=== PATIENT | female | born 1985 | race Caucasian/White ===

== ENCOUNTER → 2020-04-17 12:13 | Outpatient (BNVA) | payer OTHER, SELFPAY | PROVIDERS: PCP Internal Medicine; Visit Provider Internal Medicine Gastroenterology | DX: K76.9 Liver disease, unspecified (principal); M79.18 Myalgia, other site | CPT/HCPCS: 99212 ==

== ENCOUNTER 2020-04-28 07:54 | Outpatient (REF) | payer OTHER, SELFPAY ==
--- NOTE | 2020-04-28 07:56 | MR_ITS ---
EXAMINATION: MR ABDOMEN WITHOUT AND WITH CONTRAST CLINICAL INFORMATION: Liver disease COMPARISON: Previous abdominal MRI April [address] of the abdomen and pelvis October 2018 and abdominal MRI March 2019 TECHNIQUE: MR abdomen was performed without and with use of 10 mL intravenous Gadavist gadolinium contrast. Postcontrast images are performed in multiphase dynamic sequences. Imaging was performed in 3 planes. FINDINGS: LUNG BASES: The visualized lung bases are unremarkable. LIVER, GALLBLADDER, AND BILIARY TREE: The liver is normal in size and contour. There is a wedge-shaped area of increased perfusion seen on dynamic sequences only following contrast. This measures approximately 1.5 x 3 cm for example image 28 postcontrast. This appears decreased in size from previous exams and again probably represents a transient perfusion effect. No other abnormal signal is seen in the liver. The gallbladder is unremarkable with no evidence of gallbladder wall thickening, or obvious pericholecystic inflammatory changes. There is no biliary duct dilatation. PANCREAS: Unremarkable. SPLEEN: Normal. ADRENAL GLANDS: Normal. KIDNEYS AND URETERS: The kidneys are normal in size, shape, and enhance symmetrically. No hydronephrosis. No perinephric stranding. GASTROINTESTINAL TRACT: No bowel obstruction. No ascites or fluid collection. ABDOMINAL WALL: No significant hernia is appreciated. LYMPH NODES: There is shotty small bowel mesentery and lymphadenopathy similar to previous exams. VASCULAR: Unremarkable. OSSEOUS STRUCTURES: Marrow signal normal. MR/MR abdomen wo/w con IMPRESSION: Interval decrease in the transient wedge-shaped area of increased enhancement seen on dynamic sequences only in the high right lobe of the liver probably representing a transient perfusion effect compared to previous MRI exams.
== END 2020-04-28 07:55 | disposition home or self-care (01) ==
LOC: HO.MRI 07:54
PROVIDERS: Visit Provider Internal Medicine Gastroenterology
DX: K76.9 Liver disease, unspecified (principal); M79.18 Myalgia, other site
CPT/HCPCS: 74183; A9585

== ENCOUNTER → 2020-05-09 15:08 | Outpatient (BNVA) | payer OTHER, SELFPAY | PROVIDERS: Visit Provider Urology | DX: Z76.89 Persons encountering health services in other specified circumstances (principal) ==

== ENCOUNTER → 2020-06-13 14:01 | Outpatient (BNVA) | payer OTHER, SELFPAY | PROVIDERS: Visit Provider Urology | DX: Z76.89 Persons encountering health services in other specified circumstances (principal) | CPT/HCPCS: 99212 ==

== ENCOUNTER 2020-07-02 08:48 | Outpatient (REF) | payer OTHER, SELFPAY | END 2020-07-02 08:49 | disposition home or self-care (01) | LOC: HO.MDS 08:48 | PROVIDERS: Visit Provider Urology | DX: N39.0 Urinary tract infection, site not specified (principal) | CPT/HCPCS: 96365; J1335 ==

== ENCOUNTER 2020-07-03 08:32 | Outpatient (REF) | payer OTHER, SELFPAY | END 2020-07-03 08:33 | disposition home or self-care (01) | LOC: HO.MDS 08:32 | PROVIDERS: Visit Provider Urology | DX: N39.0 Urinary tract infection, site not specified (principal) | CPT/HCPCS: 96365; J1335 ==

== ENCOUNTER 2020-07-04 07:32 | Outpatient (REF) | payer OTHER, SELFPAY | END 2020-07-04 07:33 | disposition home or self-care (01) | LOC: HO.MDS 07:32 | PROVIDERS: Visit Provider Urology | DX: N39.0 Urinary tract infection, site not specified (principal) | CPT/HCPCS: 96365; J1335 ==

== ENCOUNTER 2020-07-05 10:01 | Outpatient (REF) | payer OTHER, SELFPAY | END 2020-07-05 10:02 | disposition home or self-care (01) | LOC: HO.MDS 10:01 | PROVIDERS: Visit Provider Urology | DX: N39.0 Urinary tract infection, site not specified (principal) | CPT/HCPCS: 96365; J1335 ==

== ENCOUNTER 2020-07-06 09:55 | Outpatient (REF) | payer OTHER, SELFPAY | END 2020-07-06 09:56 | disposition home or self-care (01) | LOC: HO.MDS 09:55 | PROVIDERS: Visit Provider Urology | DX: N39.0 Urinary tract infection, site not specified (principal) | CPT/HCPCS: 96365; J1335 ==

== ENCOUNTER 2020-07-07 08:58 | Outpatient (REF) | payer OTHER, SELFPAY | END 2020-07-07 08:59 | disposition home or self-care (01) | LOC: HO.MDS 08:58 | PROVIDERS: Visit Provider Urology | DX: N39.0 Urinary tract infection, site not specified (principal) | CPT/HCPCS: 96365; J1335 ==

== ENCOUNTER 2020-07-08 08:57 | Outpatient (REF) | payer OTHER, SELFPAY | END 2020-07-08 08:58 | disposition home or self-care (01) | LOC: HO.MDS 08:57 | PROVIDERS: Visit Provider Urology | DX: N39.0 Urinary tract infection, site not specified (principal) | CPT/HCPCS: 96365; J1335 ==

== ENCOUNTER 2020-07-09 07:56 | Outpatient (REF) | payer OTHER, SELFPAY | END 2020-07-09 07:57 | disposition home or self-care (01) | LOC: HO.MDS 07:56 | PROVIDERS: Visit Provider Urology | DX: N39.0 Urinary tract infection, site not specified (principal) | CPT/HCPCS: 96365; J1335 ==

== ENCOUNTER 2020-07-10 07:58 | Outpatient (REF) | payer OTHER, SELFPAY | END 2020-07-10 07:59 | disposition home or self-care (01) | LOC: HO.MDS 07:58 | PROVIDERS: Visit Provider Urology | DX: N39.0 Urinary tract infection, site not specified (principal) | CPT/HCPCS: 96365; J1335 ==

== ENCOUNTER 2020-07-11 09:57 | Outpatient (REF) | payer OTHER, SELFPAY | END 2020-07-11 09:58 | disposition home or self-care (01) | LOC: HO.MDS 09:57 | PROVIDERS: Visit Provider Urology | DX: N39.0 Urinary tract infection, site not specified (principal) | CPT/HCPCS: 96365; J1335 ==

== ENCOUNTER 2020-07-12 | Outpatient (REF) | payer OTHER, SELFPAY | END 2020-07-12 00:01 | disposition home or self-care (01) | LOC: HO.MDS | PROVIDERS: Visit Provider Urology | DX: N39.0 Urinary tract infection, site not specified (principal) | CPT/HCPCS: 96365; J1335 ==

== ENCOUNTER 2020-07-13 | Outpatient (REF) | payer OTHER, SELFPAY | END 2020-07-13 00:01 | disposition home or self-care (01) | LOC: HO.MDS | PROVIDERS: Visit Provider Urology | DX: N39.0 Urinary tract infection, site not specified (principal) | CPT/HCPCS: 96365; J1335 ==

== ENCOUNTER 2020-07-14 11:04 | Outpatient (REF) | payer OTHER, SELFPAY | END 2020-07-14 11:05 | disposition home or self-care (01) | LOC: HO.MDS 11:04 | PROVIDERS: Visit Provider Urology | DX: N39.0 Urinary tract infection, site not specified (principal) | CPT/HCPCS: 96365; J1335 ==

== ENCOUNTER 2020-07-15 14:56 | Outpatient (REF) | payer OTHER, SELFPAY | END 2020-07-15 14:57 | disposition home or self-care (01) | LOC: HO.MDS 14:56 | PROVIDERS: Visit Provider Urology | DX: N39.0 Urinary tract infection, site not specified (principal) | CPT/HCPCS: 96365; J1335 ==

== ENCOUNTER → 2020-07-25 09:39 | Outpatient (BNVA) | payer OTHER, SELFPAY | PROVIDERS: PCP Internal Medicine; Referring Provider Internal Medicine; Visit Provider Internal Medicine Gastroenterology ==

== ENCOUNTER → 2020-08-29 11:57 | Outpatient (BNVA) | payer OTHER, SELFPAY | PROVIDERS: PCP Internal Medicine; Visit Provider Urology | DX: Z13.89 Encounter for screening for other disorder (principal) | CPT/HCPCS: 99212 ==

== ENCOUNTER 2020-10-01 14:05 | Outpatient (REF) | payer OTHER, SELFPAY | END 2020-10-01 14:06 | disposition home or self-care (01) | LOC: HO.LAB 14:05 | PROVIDERS: PCP Internal Medicine; Visit Provider Urology | DX: N39.0 Urinary tract infection, site not specified (principal) | CPT/HCPCS: 87086 ==

== ENCOUNTER → 2020-10-09 14:24 | Outpatient (BNVA) | payer OTHER, SELFPAY | PROVIDERS: PCP Internal Medicine; Visit Provider Urology ==

== ENCOUNTER → 2020-10-31 13:39 | Outpatient (BNVA) | payer OTHER, SELFPAY | PROVIDERS: PCP Internal Medicine; Visit Provider Urology ==

== ENCOUNTER → 2020-11-14 15:34 | Outpatient (BNVA) | payer OTHER, SELFPAY | PROVIDERS: PCP Internal Medicine; Visit Provider Urology ==

== ENCOUNTER → 2020-11-21 08:58 | Outpatient (BNVA) | payer OTHER, SELFPAY | PROVIDERS: PCP Internal Medicine; Visit Provider Internal Medicine Gastroenterology | DX: R10.9 Unspecified abdominal pain (principal); N39.0 Urinary tract infection, site not specified | CPT/HCPCS: 99212 ==

== ENCOUNTER → 2020-12-12 13:00 | Outpatient (BNVA) | payer OTHER, SELFPAY | PROVIDERS: PCP Internal Medicine; Visit Provider Urology ==

== ENCOUNTER 2020-12-27 11:04 | Outpatient (REF) | payer OTHER, SELFPAY ==
[2020-12-27 11:18] LABS: Glucose Urine UA NEG (NEG); Leukocyte Esterase Urine NEG (NEG); Nitrite Urine NEG (NEG); Specific Gravity - Urine 1.015 (1.005-1.025); Urine Blood NEG (NEG); Urine Ketones NEG (NEG); Urine Protein NEG (NEG-TRACE)
[2020-12-27 11:19] LABS: Appearance Urine CLEAR; Color Urine YELLOW
== END 2020-12-27 11:05 | disposition home or self-care (01) ==
LOC: HO.LNP 11:04
PROVIDERS: Visit Provider Urology
DX: N39.0 Urinary tract infection, site not specified (principal)
CPT/HCPCS: 81003; 87086

== ENCOUNTER 2020-12-31 11:28 | Outpatient (REF) | payer OTHER, SELFPAY ==
[2020-12-31 12:04] LABS: Glucose Urine UA NEG (NEG); Leukocyte Esterase Urine NEG (NEG); Nitrite Urine NEG (NEG); Specific Gravity - Urine <= 1.005 (1.005-1.025); Urine Blood NEG (NEG); Urine Ketones NEG (NEG); Urine Protein NEG (NEG-TRACE)
[2020-12-31 12:09] LABS: Appearance Urine CLEAR; Color Urine YELLOW
[2020-12-31 12:24] LABS: Bacteria Urine TRACE /LPF; RBC Urine 0-2 /HPF (0); Renal Epithelial Cells Urine TRACE /LPF; Squamous Epithelial Cell Urine TRACE /LPF; WBC Urine 0-2 /HPF (0-4)
== END 2020-12-31 11:29 | disposition home or self-care (01) ==
LOC: HO.LNP 11:28
PROVIDERS: Visit Provider Urology
DX: N39.0 Urinary tract infection, site not specified (principal)
CPT/HCPCS: 81001; 87086

== ENCOUNTER → 2021-01-02 14:46 | Outpatient (BNVA) | payer OTHER, SELFPAY | PROVIDERS: PCP Internal Medicine; Visit Provider Urology ==

== ENCOUNTER 2021-01-03 11:11 | Outpatient (REF) | payer OTHER, SELFPAY | END 2021-01-03 11:12 | disposition home or self-care (01) | LOC: HO.LNP 11:11 | PROVIDERS: Visit Provider Urology | DX: N39.0 Urinary tract infection, site not specified (principal) | CPT/HCPCS: 87086 ==

== ENCOUNTER → 2021-01-16 11:16 | Outpatient (BNVA) | payer OTHER, SELFPAY | PROVIDERS: PCP Internal Medicine; Visit Provider Urology ==

== ENCOUNTER → 2021-02-17 11:06 | Outpatient (BNVA) | payer OTHER, SELFPAY | PROVIDERS: PCP Internal Medicine; Visit Provider Urology ==

== ENCOUNTER → 2021-03-20 09:06 | Outpatient (BNVA) | payer OTHER, SELFPAY | PROVIDERS: PCP Internal Medicine; Visit Provider Internal Medicine Gastroenterology | DX: R10.9 Unspecified abdominal pain (principal) | CPT/HCPCS: 99212 ==

== ENCOUNTER → 2021-04-01 13:39 | Outpatient (BNVA) | payer OTHER, SELFPAY | PROVIDERS: PCP Internal Medicine; Visit Provider Urology | DX: N30.10 Interstitial cystitis (chronic) without hematuria (principal); N39.0 Urinary tract infection, site not specified | CPT/HCPCS: 99212 ==

== ENCOUNTER → 2021-07-30 08:34 | Outpatient (BNVA) | payer OTHER, SELFPAY | PROVIDERS: PCP Internal Medicine; Visit Provider Urology ==

== ENCOUNTER → 2021-10-19 09:18 | Outpatient (BNVA) | payer OTHER, SELFPAY | PROVIDERS: PCP Internal Medicine; Referring Provider Internal Medicine; Visit Provider Internal Medicine Gastroenterology | DX: Q79.60 Ehlers-Danlos syndrome, unspecified (principal); N39.0 Urinary tract infection, site not specified | CPT/HCPCS: 99212 ==

== ENCOUNTER → 2021-12-02 15:07 | Outpatient (BNVA) | payer OTHER, SELFPAY | PROVIDERS: PCP Internal Medicine; Visit Provider Urology | DX: N30.10 Interstitial cystitis (chronic) without hematuria (principal); N39.0 Urinary tract infection, site not specified | CPT/HCPCS: 99212 ==

== ENCOUNTER 2022-05-17 16:28 | Outpatient (REF) | payer OTHER, SELFPAY ==
--- NOTE | ~2022-05-17 | MR_ITS ---
EXAMINATION: MR ABDOMEN WITHOUT AND WITH CONTRAST CLINICAL INFORMATION: Abdominal pain. COMPARISON: Abdominal MRI 04/28/2020. TECHNIQUE: MR abdomen was performed without and with use of 10 mL intravenous Gadavist gadolinium contrast. Postcontrast images are performed in multiphase dynamic sequences. Imaging was performed in 3 planes. FINDINGS: LUNG BASES: The visualized lung bases are unremarkable. LIVER, GALLBLADDER, AND BILIARY TREE: The liver is normal in size, shape and attenuation. There is redemonstration of a wedge-shaped area of hyperenhancement along the periphery of the superior right hepatic lobe, best seen in the arterial postcontrast images (100:35), with no associated mass effect and vessels running through it, favoring to represent a perfusional abnormality. There is minimal heterogeneity of the inferior right hepatic lobe adjacent to the gallbladder fossa, only visualized on the arterial phase images (100:85), that fades to become isointense in other sequences, favoring to represent an additional area of perfusional abnormality. PANCREAS: Unremarkable. SPLEEN: Normal. ADRENAL GLANDS: Normal. KIDNEYS AND URETERS: The kidneys are normal in size, shape, and enhance symmetrically. No hydronephrosis. No perinephric stranding. GASTROINTESTINAL TRACT: No evidence of bowel obstruction. There is redemonstration of tobi fatty haziness of the upper mesentery with associated prominent mesenteric lymph nodes measuring up to 9 mm in short axis, not significantly changed since 2019. ABDOMINAL WALL: No significant hernia is appreciated. LYMPH NODES: As above, redemonstration of prominent mesenteric lymph nodes associated with mesenteric fat stranding. VASCULAR: Normal caliber of the abdominal aorta. The main portal vein and SMV are patent. OSSEOUS STRUCTURES: No acute or aggressive-appearing osseous abnormalities. MR/MR abdomen wo/w con IMPRESSION: 1. Redemonstration of tobi fatty haziness of the upper mesentery with associated prominent mesenteric lymph nodes, not significantly changed since 2019, a nonspecific finding that could be seen for example in cases of mesenteric adenitis in the appropriate clinical context. 2. Area of hyperenhancement along the periphery of the superior right hepatic lobe and heterogeneity along the inferior right hepatic lobe adjacent to the gallbladder fossa, favoring to represent perfusional abnormalities.
== END 2022-05-17 16:29 | disposition home or self-care (01) ==
LOC: HO.MRI 16:28
PROVIDERS: Visit Provider Internal Medicine Gastroenterology
DX: R10.9 Unspecified abdominal pain (principal)
CPT/HCPCS: 74183; A9585

== ENCOUNTER → 2022-06-08 13:33 | Outpatient (BNVA) | payer OTHER, SELFPAY | PROVIDERS: PCP Internal Medicine; Visit Provider Urology | DX: N39.0 Urinary tract infection, site not specified (principal); N80.9 Endometriosis, unspecified; E06.3 Autoimmune thyroiditis; Q79.60 Ehlers-Danlos syndrome, unspecified; A69.20 Lyme disease, unspecified; Z79.899 Other long term (current) drug therapy | CPT/HCPCS: 99212 ==

== ENCOUNTER → 2022-06-14 14:26 | Outpatient (BNVA) | payer OTHER, SELFPAY | PROVIDERS: PCP Internal Medicine; Visit Provider Internal Medicine Gastroenterology | DX: D89.40 Mast cell activation, unspecified (principal); Q79.60 Ehlers-Danlos syndrome, unspecified; E06.3 Autoimmune thyroiditis; N80.9 Endometriosis, unspecified | CPT/HCPCS: 99212 ==

== ENCOUNTER → 2022-09-27 13:18 | Outpatient (BNVA) | payer OTHER, SELFPAY | PROVIDERS: PCP Internal Medicine; Visit Provider Internal Medicine Gastroenterology | DX: Q79.60 Ehlers-Danlos syndrome, unspecified (principal); N80.9 Endometriosis, unspecified; N39.0 Urinary tract infection, site not specified | CPT/HCPCS: 99212 ==

== ENCOUNTER 2023-01-18 14:12 | Outpatient (AMB) | payer OTHER, SELFPAY ==
--- NOTE | 2023-01-18 14:13 | MHC.OFFVIS ---
Intake Intake Visit Reasons: 6m follow up Intake Note: Patient is present for Telephone Microgen follow up Urology Med: Methenamine, tamsulosin Antibiotic Allergy:none Blood Thinner: None Phar cvsmacy: Allergies gluten Allergy (Mild, Verified 09/27/22 13:22) Unknown omalizumab [From Xolair] Allergy (Verified 09/27/22 13:21) Anaphylaxis Beta-Blockers (Beta-Adrenergic Bloc Adverse Reaction (Severe, Verified 09/27/22 13:21) Blurry Vision alpha-blockers Adverse Reaction (Severe, Uncoded 09/27/22 13:21) Blurry Vision Medication List - Last Reconciled 01/18/23 by Wes Rubio MD adapalene 0.1% topical BEDTIME amoxicillin-pot clavulanate 500-125 mg (Augmentin) 1 tab PO BID 5 days amoxicillin-pot clavulanate 875-125 mg 1 tab PO BID 14 days ascorbic acid (vitamin C) mg PO BID atogepant (Qulipta) 60 mg PO DAILY benzonatate 100 mg PO TID PRN cefixime (Suprax) 400 mg PO DAILY 7 days cetirizine (All Day Allergy (cetirizine)) 20 mg PO BID PRN clemastine 0 mg PO cromolyn mg PO BID cyanocobalamin (vitamin B-12) 5,000 mcg PO DAILY diclofenac sodium 1% 1 - 3 grams topical TID-QID doxycycline hyclate 100 mg PO BID epinephrine IM DIRECTED fluconazole 100 mg PO QWEEK 5 days fluticasone propionate 220 mcg/actuation 2 puffs inhalation BID hydroxyzine HCl mg PO ipratropium bromide 1 - 2 sprays intranasal QID PRN ketotifen fumarate 0.025%(0.035%) 1 drp ophthalmic (eye) BID PRN lactobacillus combination no.8 (Adult Probiotic) 3,000 mmu cells PO DAILY liothyronine (Cytomel) 50 mcg PO DAILY loratadine (Claritin) 10 mg PO DAILY methenamine hippurate 1 g PO BID 90 days norethindrone ac-eth estradiol 1.5-30 mg-mcg (Junel) 1 tab PO DAILY omeprazole 40 mg PO DAILY ondansetron 4 mg PO Q8H PRN ondansetron 8 mg PO Q8H PRN 5 days syringe with needle (BD Luer-Hector Syringe) As directed tamsulosin 0.4 mg PO BEDTIME triamcinolone acetonide 0.1% appl topical TID ubidecarenone-omega 3-vit E 25-150-200 mg-mg-unit (Co I-27-[id number] E-Fish Oil) 1 cap PO DAILY zolmitriptan 5 mg intranasal Q2H zolpidem 10 mg PO BEDTIME PRN HPI HPI Comments History of Present Illness Details Venus is a pleasant female. She is a patient of Dr. Brizuela. 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 - recurrent UTI Telemedicine Evaluation 15 min Consultation [employer] [facility] Video attempted 01/26 Microgen - EColi positive - Augmentin 2 weeks - 90% response - vaginal rickie - persistent symptoms - would like to proceed with 7 days antibiotics plus fluconazole. - discussed UTI vaccine which has some availability under special access program 2021 Had manual therapy evaluation [facility] for Amos-Danlos syndrome with question of high tone pelvic issues Urinary Tract Infection: Ongoing issues with recurring UTI Completed pelvic floor PT which was beneficial with Lydia Marie 2019 They present for followup evaluation for, recurrent UTI's September 2018 - excisional surgery for endometriosis - improvement but pain on right - did have skeletonization - has been having pelvic floor therapy and accupuncture - had good PT when living in [facility] (skiing). The first infection began - complicated medical history - IC diagnosis in early - ongoing issues with endometriosis - multiple excisional surgeries - question of UTI with symptoms. Severity of the symptom(s) that is moderate. Gynecologic history: , 0, Para, 0. Therapy has included symptomatic use of antibiotics - multiple antibiotics have been tried - Aim for suppression with methenamine - using [place] [facility] approach of prolonged use of trimethoprim or fossa mycin Prior cultures have shown 05/23 Microgen - unusual path with clindamycin sensitive bacteria 03/24 microgen Enterococcus faecalis - 06/26 Microgen - Klebsiella and Enterococcus no E coli - 08/24 Klebsiella positive with resistance pattern - 01/24 Klebsiella and Enterococcus - on foscfomycin and methanamine - 02/24 E coli with Levaquin resistance, rickie - 03/26 NAD - 06/27 lactobacillus - 11/25 Enterococcus and E coli - Bactrim and Augmentin - 03/27 and 04/27 - Level 1 Prevotella Level 2 mixed predominate Lactobacillius Relevant medical history Amos-Danlos syndrome with suppressed immune system. Endometriosis. - chronic Lyme therapy - interstitial cystitis PFS Medical History Complicated UTI (urinary tract infection) Endometriosis H/o Lyme disease Interstitial cystitis Mast cell disorder Pelvic pain Thyroid disease Surgical History History of appendectomy History of esophagogastroduodenoscopy (EGD) History of laparoscopic appendectomy History of surgery Hx of colonoscopy Family History Father History of cancer Family history of diabetes insipidus Mother No problems noted. Social History Household Members: Family Household Members Other:: Dad Alcohol intake: never Current occupational status: unemployed Review of Systems Const All systems reviewed & are unremarkable except as noted in HPI and below Reports no additional complaints Resp Reports no additional complaints GI Reports no additional complaints Reports as per HPI Musc Reports no additional complaints Physical Exam Telemedicine evaluation Appropriate responses Regular breathing rate and rhythm HEENT Head: Yes normal to inspection Ears: hearing grossly normal bilaterally Eyes General: appearance normal, both eyes and all related structures Neck Neck: Yes normal visual inspection Chest Chest palpation & inspection: normal inspection of the chest Resp Effort & Inspection: normal respiratory effort and able to speak in complete sentences Assessment & Plan Assessment & Plan (1) Complicated UTI (urinary tract infection): Code(s): N39.0 - Urinary tract infection, site not specified (2) Interstitial cystitis: Code(s): N30.10 - Interstitial cystitis (chronic) without hematuria Plan Four month follow-up Medications: Changed From cefixime (Suprax) 400 mg PO DAILY 14 days 14 caps 0RF N39.0 - Urinary tract infection, site not specified To cefixime (Suprax) 400 mg PO DAILY 7 caps 0RF 7 days N39.0 - Urinary tract infection, site not specified From fluconazole 150 mg PO QWEEK 7 days 7 tabs 0RF N39.0 - Urinary tract infection, site not specified To fluconazole 100 mg PO QWEEK 5 tabs 0RF 5 days N39.0 - Urinary tract infection, site not specified Patient Instructions: Imaging studies, laboratory and physical exam results were discussed and reviewed in detail. No major barriers to patient understanding were identified. An opportunity to ask questions regarding the treatment plan was provided. All questions were answered. The patient expressed understanding and agreement with the above treatment plan. The patient is aware they should contact our office by phone for worsening of their current condition or the appearance of new urologic symptoms. Compliance is encouraged with any medications and followup testing that is ordered. It is a privilege to participate in the urologic care of your patient. If you have any questions or concerns regarding treatment for the above conditions, or other urologic issues, please do not hesitate to contact me. The office telephone contact is [phone]. This note is constructed using voice recognition software. While every effort has been made to ensure accuracy machine package sealer errors may have been included. Yours sincerely, Dr Wes Rubio MD, [facility] - Urology Providers of Expert, Compassionate Care for the Genitourinary System Telehealth Telehealth Location of provider rendering services: practice address Location of patient: address on file Patient Identification confirmed using: Name, : Yes Telehealth method: video Patient verbally consented to treatment: Yes Patient verbally consented to billing insurance company: Yes Patient informed of any privacy concerns related to visit: Yes Coding Level of Care Code Tele Est Pt Level 4 (81788) Diagnoses Complicated UTI (urinary tract infection) N39.0 Interstitial cystitis N30.10
== END 2023-01-18 16:19 | disposition home or self-care (01) ==
LOC: HO.HUSH 14:12
PROVIDERS: PCP Internal Medicine; Visit Provider Urology
DX: N30.10 Interstitial cystitis (chronic) without hematuria (principal)
CPT/HCPCS: 99214

== ENCOUNTER → 2023-01-18 14:12 | Outpatient (BNVA) | payer OTHER, SELFPAY | PROVIDERS: PCP Internal Medicine; Visit Provider Urology ==

== ENCOUNTER 2023-02-21 15:06 | Outpatient (REF) | payer OTHER, SELFPAY ==
[2023-02-23 13:23] LABS: Gliadin Deamidated IgA Ab <1.0 U/mL; Gliadin Deamidated IgG Ab <1.0 U/mL; Transglutaminase Ab IgG 1.2 U/mL; Transglutaminase IgA <1.0 U/mL
[2023-02-23 15:29] LABS: IgA 227 mg/dL (47-310); IgG 1225 mg/dL (600-1640); IgM 104 mg/dL (50-300)
[2023-02-24 17:09] LABS: Immunoglobulin G Subclass 1 661 mg/dL (382-929); Immunoglobulin G Subclass 2 371 mg/dL (241-700); Immunoglobulin G Subclass 3 6 mg/dL (22-178); Immunoglobulin G Total 1055 mg/dL (600-1640)
[2023-02-25 06:18] LABS: Immunoglobulin E 105 kU/L (<OR=114)
== END 2023-02-21 15:07 | disposition home or self-care (01) ==
LOC: HO.LAB 15:06
PROVIDERS: PCP Internal Medicine; Visit Provider Internal Medicine Gastroenterology
DX: R10.33 Periumbilical pain (principal); G89.29 Other chronic pain; R10.9 Unspecified abdominal pain
CPT/HCPCS: 36415; 82784; 82785; 86258; 86364

== ENCOUNTER 2023-04-01 09:29 | Outpatient (AMB) | payer OTHER, SELFPAY ==
--- NOTE | 2023-04-01 09:32 | A.OFFVIS_ITS ---
Intake Vital Signs 04/01/23 09:35 Height 5 ft 10 in Weight 246 lb BMI 35.3 BP 124/76 Blood Pressure Location Lt brachial Position Sitting Pulse 87 Intake Visit Reasons: 4 month follow up Intake Note: Venus presents in the office as a 4 month follow up. CC: She has been having issues with her BP due to her medications. She was getting dizzy and she is a little confused. She was losing hair due to Quilipta. 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 she had been on mcc ABx for lyme disease and was on diflucan ? she has had appendectomy and lysis of endometriosis in the past 06/2018 as well as vaginal manipulation for pelvic floor issues ? pain is RLQ and also pain in umbilical area ? she also has pain in epigastrium ? sitting can make pain worse ? when first had thought is was kidney stone due to severity, worse lying on that side, heat might help it ? no nausea or vomiting ? mush like stools since 06/2018, on probiotics ? she took omeprazole for 2 weeks for gerd but no longer needed ? she has tried flagy for the stool seemed to help a little ? she has been dx as interstitial cystitis and on various courses of abx for this ? she stays on gluten free diet, if takes gluten has terible pain ? she got shock wave therapy for sacral pain, didnlt really help ? told to ride it out, may get further injection therapy ? she is also having pain initally rlq now higher up, few spots she can identify as focally causing pain ? 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 seeing new pain MD ? 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 had complex UTI requiring ertapenam Iv for 2 weeks she is getting PT for her pains and aches She had treatment for lyme and got treatment from PCP shr got treatment with disulfiram and is ongoing potentially for months, things is helping some what she has word finding problems, expressive dysphasia she still has ongoing bladder infection issues and seeing Dr Rubio, has tried macrobid she had not tried cromolyn or black seed oil From office visit 03/2021 she had been having worsening migraines following up with her neurologist and 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, thinking to go back on OCP as feels it is hormonal she has tenderness in abdomen, and she has been told she has myofascial pain asking if I can give her trigger point injection (In EDS patients marcaine is more effect nupur than lidocaine she has had ropivacaine in the past for other pain issues with good relief) she had been getting pelvic treatments for her pelvic pain she had recurrent UTI again with e coli and rickie, was getting treatment She finally had her trigger point injection using ropivacaine without the steroid seemed to help for 6 hours but came back she still has the same pain she has chronic SI joint pain-- has seen PT for this she has ongoing issues with migraines, getting quilpta with some relief feels losing hair due to the quilipta we had discussed using trental she was thinking about it she hasn;t started cromolyn at this time DATA: Imaging and endoscopies: ? EGD: 03/2018--gastritis, normal duodenum ? colonoscopy--normal ? MRI: 03/2019--6.4 x 7.2 cm wedge shaped hyperemia, edema, ?anterior seg portal vein thrombosis, right, left main portal veins are patent ? numerous mesenteric LN, increased in size similar to prior study, spiculated soft tissue peritoneal lesion 1 x 1.8 cm ?related to endometriosis ? rept MRI 04/2019-- ?NOAH< transient arterial enhancement, normal portal veins, right ovarian cyst, normal pancreas, no cholelithiasis ? rept MRI 04/2020-- NOAH reduced, shotty LN and mesentry MRI 2021- NOAH< tobi mesentry with prominent LN MISC? LAB TESTS: ? fecal calprotectin <15 ? gastrin neg ? glucagon neg ? metanephrines plasma and urine were both neg ? porphyria was neg ? RAST- pos for wheat, nuts, high IgE ? MARY--neg NOAH, perfusion defect, also on OCP, not keen on MRI with contrast, never had any solid tumour seen ? INTERIM: she had a lot of stress looking after dad, has shunt for NPH she still hasn;t started cromolyn, will start next week she has been having BP issues with HTN from Quilepta she has been taking candesartan and lower dose of quilipta she has been having issues with rickie infections - noted on pap smears she has been taking diflucan she had covid booster shot, but had post vaccine cough and needed inhalers etc ?EXAM: GENERAL: The patient is well developed and nontoxic. VITAL SIGNS:see workflow HEENT: Nonicteric sclerae, PERRLA, EOMI. Oropharynx clear. Moist mucous membranes. Conjunctivae appear well perfused. No thyroid mass. CHEST: Chest wall is nontender. HEART: Regular rate and rhythm without murmurs. LUNGS: Clear to auscultation bilaterally. ABDOMEN: Soft, positive bowel sounds, focal tenderness ruq worse with head lift, no organomegaly.no flank tenderness SKIN: No rash, no excessive bruising, petechiae, or purpura. NEUROLOGIC: Cranial nerves II-XII intact without motor/sensory deficit. PSYCH--normal affect Assessment & Plan 1/ Complex medical issues on background of EDS with multiple pelvic surgeries for endometriosis and recurrent UTI, some improvement with therapies from providers, imaging with mesenteric haziness and adenitis could be a cause PLAN: 1/ Still unsure about trying PPi or tren gina for various complaints, or going forward with lap assessment and bx of mesentry she will let me know how she wants to proceed in future 2/ commence cromolyn and see response [facility] Medical History (Updated 04/01/23 @ 10:01 by Ricardo Cline MD) Thyroid disease Mast cell disorder H/o Lyme disease Interstitial cystitis Pelvic pain Endometriosis Complicated UTI (urinary tract infection) Surgical History Hx of colonoscopy History of esophagogastroduodenoscopy (EGD) History of surgery History of appendectomy History of laparoscopic appendectomy Family History Father History of cancer Family history of diabetes insipidus Mother No problems noted. Social History Household Members: Family Household Members Other:: Dad Alcohol intake: never Current occupational status: unemployed Physical Exam Vital Signs: BMI result Body Mass Index 35.3 Assessment & Plan Assessment & Plan (1) Myofascial pain: Code(s): M79.18 - Myalgia, other site (2) Mast cell disorder: Code(s): D47.09 - Other mast cell neoplasms of uncertain behavior Coding Level of Care Code Est Pt Level 3 (46180) Diagnoses Myofascial pain M79.18 Mast cell disorder D47.09
[2023-04-01 09:35] VITALS: BP 124/76; PULSE 87; BMI 35.3
== END 2023-04-01 10:01 | disposition home or self-care (01) ==
PROVIDERS: Visit Provider Internal Medicine Gastroenterology
DX: M79.18 Myalgia, other site (principal); D47.09 Other mast cell neoplasms of uncertain behavior
CPT/HCPCS: 99213

== ENCOUNTER → 2023-04-01 09:29 | Outpatient (BNVA) | payer OTHER, SELFPAY | PROVIDERS: Visit Provider Internal Medicine Gastroenterology | DX: D47.09 Other mast cell neoplasms of uncertain behavior (principal); M79.18 Myalgia, other site | CPT/HCPCS: 99212 ==

== ENCOUNTER 2023-05-12 16:37 | Outpatient (REF) | payer OTHER, SELFPAY ==
[2023-05-12 17:26] LABS: Appearance Urine Clear; Color Urine Yellow; Glucose Urine UA Negative (Negative); Leukocyte Esterase Urine Trace (Negative); Nitrite Urine Negative (Negative); PH 6.5 (5.0-9.0); UMIC TRIGGER UA YES; Urine Blood Trace (Negative); Urine Ketones Negative (Negative); Urine Protein Negative (Neg-Trace)
[2023-05-12 17:32] LABS: Bacteria Urine None Seen (None Seen); Hyaline Casts Urine 0-2 /LPF (0-2); Squamous Epithelial Cell Urine 0-2 /HPF (0-2); WBC Urine 0-5 /HPF (0-5)
== END 2023-05-12 16:38 | disposition home or self-care (01) ==
LOC: HO.LAB 16:37
PROVIDERS: PCP Internal Medicine; Visit Provider Urology
DX: N39.0 Urinary tract infection, site not specified (principal)
CPT/HCPCS: 81001; 87086

== ENCOUNTER 2023-05-18 14:16 | Outpatient (AMB) | payer OTHER, SELFPAY ==
--- NOTE | 2023-05-18 14:17 | A.OFFVIS_ITS ---
Intake Intake Visit Reasons: UTI- follow up Intake Note: Patient is Present for Telephone Follow Up UTI Urology Med: Antibiotic Allergy: None Blood Thinner: None Patient had changed insurances and Terenceen requires PA in order for them to decide if service can be covered. Currently under review from insurance Allergies gluten Allergy (Mild, Verified 04/01/23 09:35) Unknown tamsulosin Allergy (Mild, Verified 04/01/23 09:39) Unknown omalizumab [From Xolair] Allergy (Verified 04/01/23 09:35) Anaphylaxis Beta-Blockers (Beta-Adrenergic Bloc Adverse Reaction (Severe, Verified 04/01/23 09:35) Blurry Vision alpha-blockers Adverse Reaction (Severe, Uncoded 04/01/23 09:35) Blurry Vision Medication List - Last Reconciled 05/18/23 by Wes Rubio MD ascorbic acid (vitamin C) mg PO BID atogepant (Qulipta) 30 mg PO DAILY benzonatate 100 mg PO TID PRN candesartan 2 mg PO DAILY cetirizine (All Day Allergy (cetirizine)) 20 mg PO BID clemastine 0 mg PO cromolyn mg PO BID cyanocobalamin (vitamin B-12) 5,000 mcg PO DAILY diclofenac sodium 1% 1 - 3 grams topical TID-QID epinephrine IM DIRECTED fluconazole 100 mg PO Q OTHER DAY 5 days hydroxyzine HCl mg PO ipratropium bromide 1 - 2 sprays intranasal QID PRN ketotifen fumarate 0.025%(0.035%) 1 drp ophthalmic (eye) BID PRN lactobacillus combination no.8 (Adult Probiotic) 3,000 mmu cells PO DAILY liothyronine (Cytomel) 50 mcg PO DAILY loratadine (Claritin) 10 mg PO DAILY norethindrone ac-eth estradiol 1.5-30 mg-mcg (Junel) 1 tab PO DAILY ondansetron 4 mg PO Q8H PRN syringe with needle (BD Luer-Hector Syringe) As directed triamcinolone acetonide 0.1% appl topical TID zolmitriptan 5 mg intranasal Q2H zolpidem 10 mg PO BEDTIME HPI HPI Comments History of Present Illness0 Details Venus is a pleasant female. She is a patient of Dr. Birzuela. 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 - recurrent UTI Telemedicine Evaluation 15 min Consultation [employer] F[employer] Video attempted Again discussed Uromune which is available in [place] 01/26 Microgen - EColi positive - Augment in 2 weeks - 90% response - vaginal rickie - persistent symptoms - would like to proceed with 7 days anti biotics plus fluconazole - discussed UTI vaccine which has some a vailability under special access program 2021 Had manual therapy evaluation [facility] for Amos-Danlos syndrome with question of high tone pelvic issues Urinary Tract Infection: Ongoing issues with recurring UTI Completed pelvic floor PT which was beneficial with Lydia Frank 2019 They present for followup evaluation for, recurrent UTI's September 2018 - excisional surgery for endometriosis - improvement but pain on right - did have skeletonization - has been having pelvic floor therapy and accupuncture - had good PT when living in [facility] ([facility] The first infection began - complicated medical history - IC diagnosis in early - ongoing issues with endometriosis - multiple excisional surgeries - question of UTI with symptoms. Severity of the symptom(s) that is moderate. Gynecologic history: , 0, Para, 0. Therapy has included symptomatic use of antibiotics - multiple antibiotics have been tried - Aim for suppression with methenamine - using [facility] approach of prolonged use of trimethoprim or fosfomycin Prior cultures have shown 05/23 Microgen - unusual path with clindamycin sensitive bacteria 03/24 microgen Enterococcus faecalis - 06/26 Microgen - Klebsiella and Enterococcus no E coli - 08/24 Klebsiella positive with resistance pattern - 01/24 Klebsiella and Enterococcus - on foscfomycin and methanamine - 02/24 E coli with Levaquin resistance, rickie - 03/26 NAD - 06/27 lactobacillus - 11/25 Enterococcus and E coli - Bactrim and Augmentin - 03/27 and 04/27 - Level 1 Prevotella Level 2 mixed predominate Lactobacillius Relevant medical history Amos-Danlos syndrome with suppressed immune system. Endometriosis. - chronic Lyme therapy - interstitial cystitis [facility]LY [facility], [facility] Medical History (Updated 04/01/23 @ 10:01 by Ricardo Cline MD) Thyroid disease Mast cell disorder H/o Lyme disease Interstitial cystitis Pelvic pain Endometriosis Complicated UTI (urinary tract infection) Surgical History Hx of colonoscopy History of esophagogastroduodenoscopy (EGD) History of surgery History of appendectomy History of laparoscopic appendectomy Family History Father History of cancer Family history of diabetes insipidus Mother No problems noted. Social History Household Members: Family Household Members Other:: Dad Alcohol intake: never Current occupational status: unemployed Review of Systems Const All systems reviewed & are unremarkable except as noted in HPI and below Reports no additional complaints Resp Reports no additional complaints GI Reports no additional complaints Reports as per HPI Musc Reports no additional complaints Physical Exam Telemedicine evaluation Appropriate responses Regular breathing rate and rhythm HEENT Head: Yes normal to inspection Ears: hearing grossly normal bilaterally Eyes General: appearance normal, both eyes and all related structures Neck Neck: Yes normal visual inspection Chest Chest palpation & inspection: normal inspection of the chest Resp Effort & Inspection: normal respiratory effort and able to speak in complete sentences Assessment & Plan Assessment & Plan (1) Interstitial cystitis: Code(s): N30.10 - Interstitial cystitis (chronic) without hematuria (2) Complicated UTI (urinary tract infection): Code(s): N39.0 - Urinary tract infection, site not specified Plan Trial Diflucan for current symptoms Four month follow-up Patient Instructions: Imaging studies, laboratory and physical exam results were discussed and reviewed in detail. No major barriers to patient understanding were identified. An opportunity to ask questions regarding the treatment plan was provided. All questions were answered. The patient expressed understanding and agreement with the above treatment plan. The patient is aware they should contact our office by phone for worsening of their current condition or the appearance of new urologic symptoms. Compliance is encouraged with any medications and followup testing that is ordered. It is a privilege to participate in the urologic care of your patient. If you have any questions or concerns regarding treatment for the above conditions, or other urologic issues, please do not hesitate to contact me. The office telephone contact is [phone]. This note is constructed using voice recognition software. While every effort has been made to ensure accuracy gas meter installer helper errors may have been included. Yours sincerely, Dr Wes Rubio MD, [facility] - Urology Providers of Expert, Compassionate Care for the Genitourinary System Telehealth Telehealth Location of provider rendering services: practice address Location of patient: address on file Patient Identification confirmed using: Name, : Yes Telehealth method: video Patient verbally consented to treatment: Yes Patient verbally consented to billing insurance company: Yes Patient informed of any privacy concerns related to visit: Yes Coding Level of Care Code Tele Est Pt Level 3 (62366) Diagnoses Interstitial cystitis N30.10 Complicated UTI (urinary tract infection) N39.0
== END 2023-05-18 14:40 ==
LOC: HO.HUSH 14:16
PROVIDERS: PCP Internal Medicine; Visit Provider Urology
DX: N30.10 Interstitial cystitis (chronic) without hematuria (principal); N39.0 Urinary tract infection, site not specified
CPT/HCPCS: 99213

== ENCOUNTER → 2023-05-18 14:16 | Outpatient (BNVA) | payer OTHER, SELFPAY | PROVIDERS: PCP Internal Medicine; Visit Provider Urology ==

== ENCOUNTER 2023-07-22 09:28 | Outpatient (AMB) | payer OTHER, SELFPAY ==
--- NOTE | 2023-07-22 09:41 | MHC.OFFVIS ---
Intake Vital Signs 07/22/23 09:42 Height 5 ft 10 in Weight 248 lb BMI 35.6 BP 115/64 Blood Pressure Location Lt brachial Position Sitting Pulse 85 Intake Visit Reasons: 4 month follow up Intake Note: Patient follow up for Mast cell disorder. Patient cc: abdominal pain with bloating, fatigue and dizziness. Spa Experience Coordinator Required: No Accompanied by: Self / Same As Patient Allergies gluten Allergy (Mild, Verified 07/22/23 09:36) Unknown tamsulosin Allergy (Mild, Verified 07/22/23 09:36) Unknown omalizumab [From Xolair] Allergy (Verified 07/22/23 09:36) Anaphylaxis Beta-Blockers (Beta-Adrenergic Bloc Adverse Reaction (Severe, Verified 07/22/23 09:36) Blurry Vision alpha-blockers Adverse Reaction (Severe, Uncoded 04/01/23 09:35) Blurry Vision HPI 4 month follow up HPI Details 38 yr old f w hx of endometriosis, hashimotos thyroiditis, mast cell disorder, kingsley danlos syndrome seen for f/u RECAP: she had been on 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 ABx for lyme disease and was on diflucan she has had appendectomy and lysis of endometriosis in the past 06/2018 as well as vaginal manipulation for pelvic floor issues pain is RLQ and also pain in umbilical area she also has pain in epigastrium sitting can make pain worse when first had thought is was kidney stone due to severity, worse lying on that side, heat might help it no nausea or vomiting mush like stools since 06/2018, on probiotics she took omeprazole for 2 weeks for gerd but no longer needed she has tried flagy for the stool seemed to help a little she has been dx as interstitial cystitis and on various courses of abx for this she stays on gluten free diet, if takes gluten has terible pain she got shock wave therapy for sacral pain, didnlt really help told to ride it out, may get further injection therapy she is also having pain initally rlq now higher up, few spots she can identify as focally causing pain plugger surgeon planning for further surgery entrapped ovary? 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 had complex UTI requiring ertapenam Iv for 2 weeks she is getting PT for her pains and aches She had treatment for lyme and got treatment from PCP shr got treatment with disulfiram and is ongoing potentially for months, things is helping some what she has word finding problems, expressive dysphasia she still has ongoing bladder infection issues and seeing Dr Rubio, has tried macrobid she had not tried cromolyn or black seed oil From office visit 03/2021 she had been having worsening migraines following up with her neurologist and plugger, thinking to go back on OCP as feels it is hormonal she has tenderness in abdomen, and she has been told she has myofascial pain asking if I can give her trigger point injection (In EDS patients marcaine is more effective than lidocaine she has had ropivacaine in the past for other pain issues with good relief) she had been getting pelvic treatments for her pelvic pain she had recurrent UTI again with e coli and rickie, was getting treatment She finally had her trigger point injection using ropivacaine without the steroid seemed to help for 6 hours but came back she still has the same pain she has chronic SI joint pain-- has seen PT for this she has ongoing issues with migraines, getting quilpta with some relief feels losing hair due to the quilipta we had discussed using trental she was thinking about it she hasn;t started cromolyn at this time she had a lot of stress looking after dad, has shunt for NPH she still hasn;t started cromolyn, will start next week she has been having BP issues with HTN from Quilepta she has been taking candesartan and lower dose of quilipta she has been having issues with rickie infections - noted on pap smears she has been taking diflucan she had covid booster shot, but had post vaccine cough and needed inhalers etc DATA: Imaging and endoscopies: EGD: 03/2018--gastritis, normal duodenum colonoscopy--normal MRI: 03/2019--6.4 x 7.2 cm wedge shaped hyperemia, edema, ?anterior seg portal vein thrombosis, right, left main portal veins are patent numerous mesenteric LN, increased in size similar to prior study, spiculated soft tissue peritoneal lesion 1 x 1.8 cm ?related to endometriosis rept MRI 04/2019-- ?NOAH< transient arterial enhancement, normal portal veins, right ovarian cyst, normal pancreas, no cholelithiasis rept MRI 04/2020-- NOAH reduced, shotty LN and mesentry MRI 2021- NOAH< tobi mesentry with prominent LN MISC LAB TESTS: fecal calprotectin <15 gastrin neg glucagon neg metanephrines plasma and urine were both neg porphyria was neg RAST- pos for wheat, nuts, high IgE MARY--neg NOAH, perfusion defect, also on OCP, not keen on MRI with contrast, never had any solid tumour seen INTERIM: still stressed as dad still been unwell, with falls, on eliquis she has not had major migraines still having issues with rickie following with immunology, Dr Shearer , has issues with her T cells she has been going for PT which has helped fascial pains she never commenced cromolyn she feels like she is leaking but she is sweaty all the time, never sees anything in the clothing EXAM: GENERAL: The patient is well developed and nontoxic. VITAL SIGNS:see workflow HEENT: Nonicteric sclerae, PERRLA, EOMI. Oropharynx clear. Moist mucous membranes. Conjunctivae appear well perfused. No thyroid mass. CHEST: Chest wall is nontender. HEART: Regular rate and rhythm without murmurs. LUNGS: Clear to auscultation bilaterally. ABDOMEN: Soft, positive bowel sounds, focal tenderness ruq worse with head lift, no organomegaly.no flank tenderness SKIN: No rash, no excessive bruising, petechiae, or purpura. NEUROLOGIC: Cranial nerves II-XII intact without motor/sensory deficit. PSYCH--normal affect Assessment & Plan 1/ Complex medical issues on background of EDS with multiple pelvic surgeries for endometriosis and recurrent UTI, some improvement with therapies from providers, and PT, imaging with mesenteric haziness and adenitis could be a cause but she has been reluctant for further assessment and trial of treatments for this PLAN: 1/ discussed she could use voricanazole she will discuss with her urology and other providers about that 2/ commence cromolyn, she thinks she will start in August, 3/ discussed using black seed oil due to anti inflammatory effects, she will consider [facility] Medical History (Updated 04/01/23 @ 10:01 by Ricardo Cline MD) Thyroid disease Mast cell disorder H/o Lyme disease Interstitial cystitis Pelvic pain Endometriosis Complicated UTI (urinary tract infection) Surgical History Hx of colonoscopy History of esophagogastroduodenoscopy (EGD) History of surgery History of appendectomy History of laparoscopic appendectomy Family History Father History of cancer Family history of diabetes insipidus Mother No problems noted. Social History Household Members: Family Household Members Other:: Dad Alcohol intake: never Current occupational status: unemployed Physical Exam Vital Signs: Last Vital Signs Pulse 85 07/22/23 09:42 BP 115/64 07/22/23 09:42 BMI result Body Mass Index 35.6 Assessment & Plan Assessment & Plan (1) Mast cell disorder: Code(s): D47.09 - Other mast cell neoplasms of uncertain behavior Plan: Assessment & Plan 1/ Complex medical issues on background of EDS with multiple pelvic surgeries for endometriosis and recurrent UTI, some improvement with therapies from providers, and PT, imaging with mesenteric haziness and adenitis could be a cause but she has been reluctant for further assessment and trial of treatments for this PLAN: 1/ discussed she could use voricanazole she will discuss with her urology and other providers about that 2/ commence cromolyn, she thinks she will start in August, 3/ discussed using black seed oil due to anti inflammatory effects, she will consider Coding Level of Care Code Est Pt Level 3 (29426) Diagnoses Mast cell disorder D47.09
[2023-07-22 09:42] VITALS: BP 115/64; PULSE 85; BMI 35.6
== END 2023-07-22 10:17 | disposition home or self-care (01) ==
PROVIDERS: PCP Internal Medicine; Visit Provider Internal Medicine Gastroenterology
DX: D47.09 Other mast cell neoplasms of uncertain behavior (principal)
CPT/HCPCS: 99213

== ENCOUNTER → 2023-07-22 09:28 | Outpatient (BNVA) | payer OTHER, SELFPAY | PROVIDERS: PCP Internal Medicine; Visit Provider Internal Medicine Gastroenterology | DX: D47.09 Other mast cell neoplasms of uncertain behavior (principal) | CPT/HCPCS: 99212 ==

== ENCOUNTER 2023-10-19 15:29 | Outpatient (AMB) | payer OTHER, SELFPAY ==
--- NOTE | 2023-10-19 15:29 | A.OFFVIS_ITS ---
Intake Visit Reasons: 4 F/U Intake Note: Patient is Present for Telephone Follow Up UTI Urology Med: Antibiotic Allergy: None Blood Thinner: None Liquid Sugar Melter Required: No Accompanied by: Self / Same As Patient Allergies gluten Allergy (Mild, Verified 07/22/23 09:36) Unknown tamsulosin Allergy (Mild, Verified 07/22/23 09:36) Unknown omalizumab [From Xolair] Allergy (Verified 07/22/23 09:36) Anaphylaxis Beta-Blockers (Beta-Adrenergic Bloc Adverse Reaction (Severe, Verified 07/22/23 09:36) Blurry Vision alpha-blockers Adverse Reaction (Severe, Uncoded 04/01/23 09:35) Blurry Vision HPI Comments Details: Venus is a pleasant female. She is a patient of Dr. Brizuela. 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 - recurrent UTI Telemedicine Evaluation 15 min Consultation [employer] 10/27 Stable with vitamin C, cran caps and d-mannose - labial cyts which have pain - relatively stable regarding bladder 04/28 Itraconazole - did have interaction with migraine medications - atogepant 01/26 Microgen - EColi positive - Augmentin 2 weeks - 90% response - vaginal rickie - persistent symptoms - would like to proceed with 7 days antibiotics plus fluconazole - discussed UTI vaccine which has some availability under special access program 2021 Had manual therapy evaluation [facility] for Amos-Danlos syndrome with question of high tone pelvic issues Urinary Tract Infection: Ongoing issues with recurring UTI Completed pelvic floor PT which was beneficial with Lydia Marie 2019 They present for followup evaluation for, recurrent UTI's September 2018 - excisional surgery for endometriosis - improvement but pain on right - did have skeletonization - has been having pelvic floor therapy and accupuncture - had good PT when living in [facility] ([place]). The first infection began - complicated medical history - IC diagnosis in early - ongoing issues with endometriosis - multiple excisional surgeries - question of UTI with symptoms. Severity of the symptom(s) that is moderate. Gynecologic history: , 0, Para, 0. Therapy has included symptomatic use of antibiotics - multiple antibiotics have been tried - Aim for suppression with methenamine - using [facility] approach of prolonged use of trimethoprim or fosfomycin Prior cultures have shown 05/23 Microgen - unusual path with clindamycin sensitive bacteria 03/24 microgen Enterococcus faecalis - 06/26 Microgen - Klebsiella and Enterococcus no E coli - 08/24 Klebsiella positive with resistance pattern - 01/24 Klebsiella and Enterococcus - on foscfomycin and methanamine - 02/24 E coli with Levaquin resistance, rickie - 03/26 NAD - 06/27 lactobacillus - 11/25 Enterococcus and E coli - Bactrim and Augmentin - 03/27 and 04/27 - Level 1 Prevotella Level 2 mixed predominate Lactobacillius Relevant medical history Amos-Danlos syndrome with suppressed immune system. Endometriosis. - chronic Lyme therapy - interstitial cystitis [facility]LY [facility] Medical History (Updated 04/01/23 @ 10:01 by Ricardo Cline MD) Thyroid disease Mast cell disorder H/o Lyme disease Interstitial cystitis Pelvic pain Endometriosis Complicated UTI (urinary tract infection) Surgical History Hx of colonoscopy History of esophagogastroduodenoscopy (EGD) History of surgery History of appendectomy History of laparoscopic appendectomy Family History Father History of cancer Family history of diabetes insipidus Mother No problems noted. Social History Household Members: Family Household Members Other:: Dad Alcohol intake: never Current occupational status: unemployed Review of Systems Const All systems reviewed & are unremarkable except as noted in HPI and below Reports no additional complaints Resp Reports no additional complaints GI Reports no additional complaints Reports as per HPI Musc Reports no additional complaints Physical Exam Telemedicine evaluation Appropriate responses Regular breathing rate and rhythm HEENT Head: Yes normal to inspection Ears: hearing grossly normal bilaterally Eyes General: appearance normal, both eyes and all related structures Neck Neck: Yes normal visual inspection Chest Chest palpation & inspection: normal inspection of the chest Resp Effort & Inspection: normal respiratory effort and able to speak in complete sentences Telehealth Telehealth Location of provider rendering services: practice address Location of patient: address on file Patient Identification confirmed using: Name, : Yes Telehealth method: voice only Patient verbally consented to treatment: Yes Patient verbally consented to billing insurance company: Yes Patient informed of any privacy concerns related to visit: Yes Assessment & Plan Assessment & Plan (1) Interstitial cystitis: Code(s): N30.10 - Interstitial cystitis (chronic) without hematuria Category: Medical (2) Complicated UTI (urinary tract infection): Code(s): N39.0 - Urinary tract infection, site not specified Category: Medical Plan 6 months Patient Instructions: Imaging studies, laboratory and physical exam results were discussed and reviewed in detail. No major barriers to patient understanding were identified. An opportunity to ask questions regarding the treatment plan was provided. All questions were answered. The patient expressed understanding and agreement with the above treatment plan. The patient is aware they should contact our office by phone for worsening of their current condition or the appearance of new urologic symptoms. Compliance is encouraged with any medications and followup testing that is ordered. It is a privilege to participate in the urologic care of your patient. If you have any questions or concerns regarding treatment for the above conditions, or other urologic issues, please do not hesitate to contact me. The office telephone contact is [phone]. This note is constructed using voice recognition software. While every effort has been made to ensure accuracy medical dermatologist errors may have been included. Yours sincerely, Dr Wes Rubio MD, [facility] - Urology Providers of Expert, Compassionate Care for the Genitourinary System Coding Level of Care Code Tele Est Pt Level 4 (33693) Diagnoses Interstitial cystitis N30.10 Complicated UTI (urinary tract infection) N39.0
== END 2023-10-19 16:24 | disposition home or self-care (01) ==
LOC: HO.HUSH 15:29
PROVIDERS: PCP Internal Medicine; Visit Provider Urology
DX: N30.10 Interstitial cystitis (chronic) without hematuria (principal); N39.0 Urinary tract infection, site not specified
CPT/HCPCS: 99213

== ENCOUNTER → 2023-10-19 15:29 | Outpatient (BNVA) | payer OTHER, SELFPAY | PROVIDERS: PCP Internal Medicine; Visit Provider Urology ==

== ENCOUNTER 2024-01-23 12:55 | Outpatient (AMB) | payer OTHER, SELFPAY ==
[2024-01-23 12:59] VITALS: BMI 35.7
--- NOTE | 2024-01-23 12:59 | A.OFFVIS_ITS ---
Vital Signs 01/23/24 12:59 Height 5 ft 10 in Weight 249 lb 1.957 oz BMI 35.7 Blood Pressure Location Lt brachial Position Sitting Intake Visit Reasons: 6 month follow up Intake Note: Venus presents in the office as a 6 month follow up. CC: Has not started cromolyn. Was having issues with BP and dizziness for weeks that they have not been able to figure out. She tested postive for carpal tunnel in both hands. She fell a couple times since her last appt. Allergies gluten Allergy (Mild, Verified 01/23/24 13:04) Unknown tamsulosin Allergy (Mild, Verified 01/23/24 13:04) Unknown omalizumab [From Xolair] Allergy (Verified 01/23/24 13:04) Anaphylaxis Beta-Blockers (Beta-Adrenergic Bloc Adverse Reaction (Severe, Verified 01/23/24 13:04) Blurry Vision alpha-blockers Adverse Reaction (Severe, Uncoded 01/23/24 13:04) Blurry Vision HPI HPI 6 month follow up: Details: 38 yr old f w hx of endometriosis, hashimotos thyroiditis, mast cell disorder, kingsley danlos syndrome seen for f/u RECAP: she had been on [facility]entiary ABx for lyme disease and was on diflucan she has had appendectomy and lysis of endometriosis in the past 06/2018 as well as vaginal manipulation for pelvic floor issues pain is RLQ and also pain in umbilical area she also has pain in epigastrium sitting can make pain worse when first had thought is was kidney stone due to severity, worse lying on that side, heat might help it no nausea or vomiting mush like stools since 06/2018, on probiotics she took omeprazole for 2 weeks for gerd but no longer needed she has tried flagy for the stool seemed to help a little she has been dx as interstitial cystitis and on various courses of abx for this she stays on gluten free diet, if takes gluten has terible pain she got shock wave therapy for sacral pain, didnlt really help told to ride it out, may get further injection therapy she is also having pain initally rlq now higher up, few spots she can identify as focally causing pain 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 had complex UTI requiring ertapenam Iv for 2 weeks she is getting PT for her pains and aches She had treatment for lyme and got treatment from PCP shr got treatment with disulfiram and is ongoing potentially for months, things is helping some what she has word finding problems, expressive dysphasia she still has ongoing bladder infection issues and seeing Dr Rubio, has tried macrobid she had not tried cromolyn or black seed oil From office visit 03/2021 she had been having worsening migraines following up with her neurologist and rock dust sprayer, thinking to go back on OCP as feels it is hormonal she has tenderness in abdomen, and she has been told she has myofascial pain asking if I can give her trigger point injection (In EDS patients marcaine is more effective than lidocaine she has had ropivacaine in the past for other pain issues with good relief)she had been getting pelvic treatments for her pelvic pain she had recurrent UTI again with e coli and rickie, was getting treatment She finally had her trigger point injection using ropivacaine without the steroid seemed to help for 6 hours but came back she still has the same pain she has chronic SI joint pain-- has seen PT for this she has ongoing issues with migraines, getting quilpta with some relief feels losing hair due to the quilipta we had discussed using trental she was thinking about it she hasn;t started cromolyn at this time she had a lot of stress looking after dad, has shunt for NPH she still hasn;t started cromolyn, will start next week she has been having BP issues with HTN from Quilepta she has been taking candesartan and lower dose of quilipta she has been having issues with rickie infections - noted on pap smears she has been taking diflucan she had covid booster shot, but had post vaccine cough and needed inhalers etc DATA: Imaging and endoscopies: EGD: 03/2018--gastritis, normal duodenum colonoscopy--normal MRI: 03/2019--6.4 x 7.2 cm wedge shaped hyperemia, edema, ?anterior seg portal vein thrombosis, right, left main portal veins are patent numerous mesenteric LN, increased in size similar to prior study, spiculated soft tissue peritoneal lesion 1 x 1.8 cm ?related to endometriosis rept MRI 04/2019-- ?NOAH< transient arterial enhancement, normal portal veins, right ovarian cyst, normal pancreas, no cholelithiasis rept MRI 04/2020-- NOAH reduced, shotty LN and mesentry MRI 2021- NOAH< tobi mesentry with prominent LN MISC LAB TESTS: fecal calprotectin <15 gastrin neg glucagon neg metanephrines plasma and urine were both neg porphyria was neg RAST- pos for wheat, nuts, high IgE MARY--neg NOAH, perfusion defect, also on OCP, not keen on MRI with contrast, never had any solid tumour seen INTERIM: stress ongoing with dad --getting rehab after knee replacement, bad experience with the rehab place she herself is not doing great she had issues dysautonomia since this summer with dizzy spells her candesartan was increased to 4 mg due to HTN issues with arm numbness, dx with carpal tunnel syndrome b/l on EMG she has not had PT due to insurance issues was helping her function better she has been using heating pad due to chronic abdominal pain upper abdomen, more on the right she is on ocp she did get trigger point injection in past with ropivacine, but only with LA, she refused the steroid she noted bad smelling flatus, she had been using low sugar candies EXAM: GENERAL: The patient is well developed and nontoxic. VITAL SIGNS:see workflow HEENT: Nonicteric sclerae, PERRLA, EOMI. Oropharynx clear. Moist mucous membranes. Conjunctivae appear well perfused. No thyroid mass. CHEST: Chest wall is nontender. HEART: Regular rate and rhythm without murmurs. LUNGS: Clear to auscultation bilaterally. ABDOMEN: Soft, positive bowel sounds, focal tenderness ruq worse with head lift, no organomegaly.no flank tenderness SKIN: No rash, no excessive bruising, petechiae, or purpura. NEUROLOGIC: Cranial nerves II-XII intact without motor/sensory deficit. PSYCH--normal affect Assessment & Plan 1/ Complex medical issues on background of EDS with multiple pelvic surgeries for endometriosis and recurrent UTI, some improvement with therapies from providers, and PT, imaging with mesenteric haziness and adenitis could be a cause but she has been reluctant for further assessment and trial of treatments for this PLAN: 1/ advised to see pain mx again, reconsider trigger point injection, 2/ discussed cromolyn trial again , 3/ stress control, hard as looking after dad and doesnt also have time for herself 4/ following with neuro for her Carpal tunnel syndrome PFSH Medical History Thyroid disease Mast cell disorder H/o Lyme disease Interstitial cystitis Pelvic pain Endometriosis Complicated UTI (urinary tract infection) Surgical History Hx of colonoscopy History of esophagogastroduodenoscopy (EGD) History of surgery History of appendectomy History of laparoscopic appendectomy Family History Father History of cancer Family history of diabetes insipidus Mother No problems noted. Social History Household Members: Family Household Members Other:: Dad Alcohol intake: never Current occupational status: unemployed Physical Exam Vital Signs: BMI result Body Mass Index 35.7 Assessment & Plan Assessment & Plan (1) Myofascial pain: Code(s): M79.18 - Myalgia, other site Category: Medical Plan: see above Coding Level of Care Code Est Pt Level 3 (73392) Diagnoses Myofascial pain M79.18
== END 2024-01-23 13:39 | disposition home or self-care (01) ==
PROVIDERS: PCP Internal Medicine; Visit Provider Internal Medicine Gastroenterology
DX: M79.18 Myalgia, other site (principal)
CPT/HCPCS: 99213

== ENCOUNTER → 2024-01-23 12:55 | Outpatient (BNVA) | payer OTHER, SELFPAY | PROVIDERS: PCP Internal Medicine; Visit Provider Internal Medicine Gastroenterology | DX: M79.18 Myalgia, other site (principal) | CPT/HCPCS: 99212 ==

== ENCOUNTER → 2024-03-27 15:03 | Outpatient (BNVA) | payer OTHER, SELFPAY | PROVIDERS: PCP Internal Medicine; Visit Provider Urology ==

== ENCOUNTER → 2024-03-28 13:14 | Outpatient (AMB) | payer OTHER, SELFPAY ==
--- NOTE | 2024-03-27 15:03 | A.OFFVIS_ITS ---
Intake Visit Reasons: RX Appeal Denial/Chronic Symptoms Intake Note: Patient is present for telephone follow up on Denial of PA/Appeal voriconazole Patient is still symptomatic severely Just finished Diflucan and Linezoid and still have urgency and Frequency Insurance has denied [employer] multiple times Genetics Nurse Required: No Allergies gluten Allergy (Mild, Verified 01/23/24 13:04) Unknown tamsulosin Allergy (Mild, Verified 01/23/24 13:04) Unknown omalizumab [From Xolair] Allergy (Verified 01/23/24 13:04) Anaphylaxis Beta-Blockers (Beta-Adrenergic Bloc Adverse Reaction (Severe, Verified 01/23/24 13:04) Blurry Vision alpha-blockers Adverse Reaction (Severe, Uncoded 01/23/24 13:04) Blurry Vision PFSH Medical History Thyroid disease Mast cell disorder H/o Lyme disease Interstitial cystitis Pelvic pain Endometriosis Complicated UTI (urinary tract infection) Surgical History Hx of colonoscopy History of esophagogastroduodenoscopy (EGD) History of surgery History of appendectomy History of laparoscopic appendectomy Family History Father History of cancer Family history of diabetes insipidus Mother No problems noted. Social History Household Members: Family Household Members Other:: Dad Alcohol intake: never Current occupational status: unemployed Telehealth Telehealth Location of provider rendering services: practice address Location of patient: address on file Patient Identification confirmed using: Name, : Yes Telehealth method: voice only Patient verbally consented to treatment: Yes Patient verbally consented to billing insurance company: Yes Patient informed of any privacy concerns related to visit: Yes Coding
--- OUTSIDE RECORDS SUMMARY | 2024-03-27 15:04 | XMS_ITS | Continuity of Care Document ---
Author Organization [facility] Address [address] [place] [address]- Care Team Providers Care Beater Head Name Role Phone Chata HUGHES, Yaima Reed Primary Care Physician Encounter [facility] Date(s): 11/05/22 - 12/05/22 [facility] [address] [place] [address]- Allergies, Adverse Reactions, Alerts Substance Reaction Severity Status terazosin DIZZINESS Active Glutens Active Xolair anaphylaxis Active Immunizations Given and Recorded Vaccine Date Status Refusal Reason [id number] 12y+ bivalent booster vax 03/26/22 Recorded SARS-CoV-2 (COVID-19) mRNA BNT-162b2 vac 1 06/25/21 Recorded SARS-CoV-2 (COVID-19) mRNA BNT-162b2 vac 01/03/21 Recorded SARS-CoV-2 (COVID-19) mRNA BNT-162b2 vac 12/13/20 Recorded 1Result Comment: 3rd dose Medications B 100 Complex By Mouth, Daily, 0 Refills, Maintenance, 10/24/19 15:36:00 EDT Start Date: 10/24/19 Status: Ordered candesartan 4 mg oral tablet See Instructions, take 1/2 to 1 tab daily, # 30 tablet, 2 Refills, Maintenance, 11/10/22 15:49:00 EDT, Tablet, [id number], Partial fill upon patient request if the prescription is for a schedule II opioid drug., 178, cm, 11/09/22 21:34:00 EDT,... Start Date: 11/10/22 Status: Ordered Claritin 10 mg oral tablet 20 mg, 2, tablet, By Mouth, Daily, # 30 tablet, Refills 0, Maintenance, 01/22/19 19:00:58 EDT Start Date: 01/22/19 Status: Ordered D MANNOSE 1 GRAM D MANNOSE 1 GRAM, Refills 0, Maintenance, 01/22/19 19:02:43 EDT, Compound Start Date: 01/22/19 Status: Ordered dapsone 5% topical gel 0 Refills, Maintenance, 12/18/19 15:26:00 EDT Start Date: 12/18/19 Status: Ordered fluconazole 150 mg oral tablet 1 tablet = 150 mg, By Mouth, Daily, 0 Refills, Maintenance, 06/17/22 11:41:00 EST, Tablet, Partial fill upon patient request if the prescription is for a schedule II opioid drug. Start Date: 06/17/22 Status: Ordered Folic Acid = 100 mcg, Daily, 0 Refills, Maintenance, 01/22/19 19:02:04 EDT Start Date: 01/22/19 Status: Ordered hydrOXYzine hydrochloride 25 mg oral tablet 1 capsule, By Mouth, Daily at bedtime, PRN for itching, # 40 capsule, 0 Refills, Maintenance, 12/03/21 11:40:00 EDT, Capsule, Partial fill upon patient request if the prescription is for a schedule II opioid drug. Start Date: 12/03/21 Stop Date: 12/13/21 Status: Ordered ipratropium nasal 21 mcg/inh spray 0 Refills, Maintenance, 06/01/19 12:48:00 EST Start Date: 06/01/19 Status: Ordered Junel 07/05 oral tablet 0 Refills, Maintenance, 07/16/21 10:45:00 EST, Partial fill upon patient request if the prescription is for a schedule II opioid drug. Start Date: 07/16/21 Status: Ordered ketoconazole 2% topical shampoo 1 application, Topically, Daily, # 120 mL, 0 Refills, Soft Stop, 10/25/19 11:51:00 EDT, Shampoo, [facility] #[id number], 1 application Topically Daily, 113.6, kg, 01/22/19 15:29:00 EDT, Dry Weight Start Date: 10/25/19 Status: Ordered ketotifen 0.025% ophthalmic solution 1 drops, Eyes, Both, Every 8 hours, # 7.5 mL, 1 Refills, Maintenance, 08/25/22 15:57:00 EDT, Solution, [facility] #[id number], Partial fill upon patient request if the prescription is for a schedule II opioid drug., 1 drops Eyes, Both Every 8 hours, 177.8... Start Date: 08/25/22 Status: Ordered liothyronine 25 mcg oral tablet See Instructions, TAKES 4 TABS BY Mouth Daily, 0 Refills, Maintenance, 03/05/19 15:16:09 EDT, Tablet Start Date: 03/05/19 Status: Ordered melatonin 3 mg oral tablet 1 tablet = 3 mg, By Mouth, Daily at bedtime, 0 Refills, Maintenance, 12/04/19 9:43:00 EDT Start Date: 12/04/19 Status: Ordered methenamine hippurate 1 gm oral tablet 1 tablet = 1 Gm, By Mouth, Daily in AM, 0 Refills, Maintenance, 12/03/21 11:23:00 EDT, Partial fillupon patient request if the prescription is for a schedule II opioid drug. Start Date: 12/03/21 Status: Ordered ondansetron 4 mg oral tablet, disintegrating DISSOLVE 1 TABLET IN MOUTH EVERY 8 HOURS NEEDED FOR NAUSEA AND VOMITING (INS ONLY COVERS 1 DAILY) Start Date: 06/17/22 Status: Ordered Probiotic Formula 1 capsule, By Mouth, Daily, 0 Refills, Maintenance, 01/22/19 19:02:57 EDT Start Date: 01/22/19 Status: Ordered Qulipta 60 mg oral tablet TAKE 1 TABLET BY MOUTH ONCE A DAY FOR MIGRAINE PREVENTION Start Date: 06/17/22 Status: Ordered Tessalon Perles = 100 mg, By Mouth, 3 times a day, 0 Refills, Maintenance, 12/04/19 9:43:00 EDT Start Date: 12/04/19 Status: Ordered Vitamin B12 = 5,000 mcg, 0 Refills, Maintenance, 01/22/19 19:02:09 EDT Start Date: 01/22/19 Status: Ordered Vitamin C 1000 mg oral tablet 1 tablet = 1,000 mg, By Mouth, 2 times a day, 0 Refills, Maintenance, 04/21/21 11:00:00 EST, Partial fill upon patient request if the prescription is for a schedule II opioid drug. Start Date: 04/21/21 Status: Ordered Vitamin D3 10,000 intl units oral capsule 1 capsule = 10,000 International_Units, By Mouth, Every week, # 5 capsule, 0 Refills, Maintenance, 10/24/19 15:37:00 EDT, Capsule Start Date: 10/24/19 Status: Ordered Vitamin K1 100mcg daily, 0 Refills, Maintenance, 10/24/19 15:37:00 EDT Start Date: 10/24/19 Status: Ordered zolpidem 10 mg oral tablet See Instructions, TAKE 1 TABLET BY MOUTH AT BEDTIME NEEDED 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 AURABINDO HEATER FURNACE, # 30 tablet, 5 Refills, Maintenance, 08/23/22 15:12:00 EDT, [id number], AURABINDO HEATER FURNACE ONLY PLEASE, 177.8, cm, 06/17/22 10:52:00 EST,... Start Date: 08/23/22 Status: Ordered ZyrTEC 10 mg oral tablet 2 tablet = 20 mg, By Mouth, Daily, # 30 tablet, 0 Refills, Maintenance, 01/22/19 19:00:54 EDT, Tablet Start Date: 01/22/19 Status: Ordered Problem List Condition Confirmation Course Effective Dates Status H ealth Status Informant Abdominal discomfort Confirmed Active Acne Confirmed Active Acute sinusitis Confirmed Active Allergic rhinitis, unspecified Confirmed Active Chronic headache Confirmed Active Amos-Danlos syndrome Confirmed Active Endometriosis Confirmed Active Fibromyalgia Confirmed Active Tommy's thyroiditis Confirmed Active Intractable headache Confirmed Active Insomnia Confirmed Active Lyme disease Confirmed Active Mast cell activation Confirmed Active Memory change Confirmed Active Migraine Confirmed Active Migraines Confirmed Active Obese class I Confirmed Active Recurrent UTI Confirmed Active RUQ pain Confirmed Active Sacroiliac joint pain Confirmed Active Social History Social History Type Response Smoking Status Never (less than 100 in lifetime) entered on: 05/14/21 Sex Patient Care team information Care Team Personnel Name: Yaima Brizuela MD Position: [facility] Physician - Primary Care Member Role: PCP Address: Address: [address] [place] [address]- Care Team Related Persons Name: AISHA ESTEVES Address: home [address] [address] Name: CECE ESTEVES Address: [place] [address] Name: CECE NUÑEZ Address: home [address] [place] [address]
--- OUTSIDE RECORDS SUMMARY | 2024-03-27 15:04 | XMS_ITS | Continuity of Care Document ---
Author Organization [facility] Address [address] [place] [address]- Care Team Providers Care Medication Coordinator Name Role Phone Yaima Brizuela MD Primary Care Physician Encounter [facility] Date(s): 11/20/20 - 12/20/20 [facility] [address] [place], [place] [address] Allergies, Adverse Reactions, Alerts Substance Reaction Severity Status Glutens Active Xolair anaphylaxis Active Medications acetaminophen/butalbital/caffeine 325 mg-50 mg-40 mg oral tablet 1 tablet, By Mouth, Every 4 hours, PRN as needed, # 30 tablet, 0 Refills, Maintenance, 05/16/20 12:36:00 EST, Tablet, [id number], confirm if on formulary, 1 tablet By Mouth Every 4 hours,PRN:as needed, 179, cm, 04/07/20 11:04:00 EST, Height, 1... Start Date: 05/16/20 Status: Ordered adapalene 0.1% topical gel 1 application, Topically, Daily at bedtime, # 45 Gm, 2 Refills, Maintenance, 10/25/19 11:53:00 EDT,Gel, [id number], 1 application Topically Daily at bedtime, 113.6, kg, 01/22/19 15:29:00 EDT, Dry Weight Start Date: 10/25/19 Status: Ordered Amerge 2.5 mg oral tablet 1 tablet = 2.5 mg, By Mouth, Daily, PRN for migraine headache, may repeat dose once in 4 hours, # 18 tablet, 0 Refills, Maintenance, 10/07/20 8:17:00 EDT, Tablet, [id number], Partial fill upon patient request if the prescription is for a sched... Start Date: 10/07/20 Status: Ordered B 100 Complex By Mouth, Daily, 0 Refills, Maintenance, 10/24/19 15:36:00 EDT Start Date: 10/24/19 Status: Ordered Claritin 10 mg oral tablet 20 mg, 2, tablet, By Mouth, Daily, # 30 tablet, Refills 0, Maintenance, 01/22/19 19:00:58 EDT Start Date: 01/22/19 Status: Ordered D MANNOSE 1 GRAM D MANNOSE 1 GRAM, Refills 0, Maintenance, 01/22/19 19:02:43 EDT, Compound Start Date: 01/22/19 Status: Ordered Dapsone By Mouth, Daily, 0 Refills, Maintenance, 12/04/19 9:39:00 EDT Start Date: 12/04/19 Status: Ordered dapsone 5% topical gel 0 Refills, Maintenance, 12/18/19 15:26:00 EDT Start Date: 12/18/19 Status: Ordered Diflucan 100 mg oral tablet 1 tablet = 100 mg, By Mouth, Daily, 0 Refills, Maintenance, 12/04/19 9:40:00 EDT Start Date: 12/04/19 Status: Ordered doxycycline monohydrate 100 mg oral tablet 1 tablet, By Mouth, 2 times a day, UNTIL FINISHED., # 56 tablet, 0 Refills, Acute, 08/20/20 8:36:00EDT, [id number], 179, cm, 07/18/20 14:54:00 EST, Height, 113.6, kg, 01/22/19 15:29:00 EDT, DryWeight Start Date: 08/20/20 Status: Ordered Folic Acid = 100 mcg, Daily, 0 Refills, Maintenance, 01/22/19 19:02:04 EDT Start Date: 01/22/19 Status: Ordered ipratropium nasal 21 mcg/inh spray 0 Refills, Maintenance, 06/01/19 12:48:00 EST Start Date: 06/01/19 Status: Ordered ketoconazole 2% topical shampoo 1 application, Topically, Daily, # 120 mL, 0 Refills, Soft Stop, 10/25/19 11:51:00 EDT, Shampoo, [facility]/pharm[facility] #[id number], 1 application Topically Daily, 113.6, kg, 01/22/19 15:29:00 EDT, Dry Weight Start Date: 10/25/19 Status: Ordered ketotifen 0.025% ophthalmic solution 1 drops, Eyes, Both, Every 8 hours, 0 Refills, Maintenance, 12/04/19 9:43:00 EDT Start Date: 12/04/19 Status: Ordered liothyronine 25 mcg oral tablet See Instructions, TAKES 4 TABS BY Mouth Daily, 0 Refills, Maintenance, 03/05/19 15:16:09 EDT, Tablet Start Date: 03/05/19 Status: Ordered Melatonin 3 mg oral tablet 1 tablet = 3 mg, By Mouth, Daily at bedtime, for 30 days, TAKE 1 TABLET BY MOUTH DAILY AT BEDTIME FOR 30 DAYS NEEDED 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, # 30 tablet, 9 Refills, Physician Stop 03/02/21 12:22:00 EDT, 05/06/20 12:22:00 [facility], [id number], 1 tablet... Start Date: 05/06/20 Stop Date: 03/02/21 Status: Ordered melatonin 3 mg oral tablet 1 tablet = 3 mg, By Mouth, Daily at bedtime, 0 Refills, Maintenance, 12/04/19 9:43:00 EDT Start Date: 12/04/19 Status: Ordered Probiotic Formula 1 capsule, By Mouth, Daily, 0 Refills, Maintenance, 01/22/19 19:02:57 EDT Start Date: 01/22/19 Status: Ordered Qvar Redihaler 40 mcg/inh inhalation aerosol Inhalation, 3 times a day, 0 Refills, Maintenance, 11/08/19 9:45:00 EDT Start Date: 11/08/19 Status: Ordered riboflavin 100 mg oral tablet See Instructions, 4 tablet By Mouth Daily, # 100 tablet, 3 Refills, Maintenance, 12/09/20 11:35:00 EDT, Tablet, [facility]/pharmacy #[id number], 179, cm, 11/27/20 14:03:00 EDT, Height, 121.1, kg, 10/22/20 14:46:00 EDT, Dry Weight Start Date: 12/09/20 Status: Ordered rizatriptan 5 mg oral tablet 1 tablet = 5 mg, By Mouth, Daily, PRN for migraine headache, may repeat dose every 2 hours up to a maximum of 3, # 30 tablet, 5 Refills, Maintenance, 10/09/20 16:46:00 EDT, Tablet, [facility]/pharmacy #[id number], Partial fill upon patient request if the prescript... Start Date: 10/09/20 Status: Ordered SUMAtriptan 50 mg oral tablet 1 tablet = 50 mg, By Mouth, Daily, PRN for migraine headache, may repeat dose after 2 hours up to amaximum of 2, # 9 tablet, 1 Refills, Maintenance, 07/03/20 11:18:00 EST, Tablet, Partial fill upon patient request if the prescription is for a schedul... Start Date: 07/03/20 Status: Ordered Tessalon Perles = 100 mg, By Mouth, 3 times a day, 0 Refills, Maintenance, 12/04/19 9:43:00 EDT Start Date: 12/04/19 Status: Ordered Vitamin B12 = 5,000 mcg, 0 Refills, Maintenance, 01/22/19 19:02:09 EDT Start Date: 01/22/19 Status: Ordered Vitamin D3 10,000 intl units oral capsule 1 capsule = 10,000 International_Units, By Mouth, Every week, # 5 capsule, 0 Refills, Maintenance, 10/24/19 15:37:00 EDT, Capsule Start Date: 10/24/19 Status: Ordered Vitamin K1 0 Refills, Maintenance, 10/24/19 15:37:00 EDT Start Date: 10/24/19 Status: Ordered Xolair Prefilled Syringe Subcutaneous Infusion, 0 Refills, Maintenance, 06/29/19 11:50:00 EST Start Date: 06/29/19 Status: Ordered zolpidem 10 mg oral tablet See Instructions, TAKE ONE TABLET BY MOUTH AT BEDTIME NEEDED 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, # 30 tablet, 5 Refills, Maintenance, 07/25/20 12:12:00 EST, [id number], 179, cm, 07/18/20 14:54:00 EST, Height, 113.6, kg, 01/22/19 15:29:00 EDT, Dry Weight Start Date: 07/25/20 Status: Ordered zolpidem 10 mg oral tablet See Instructions, TAKE ONE TABLET BY MOUTH AT BEDTIME NEEDED 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, # 30 tablet, 5 Refills, Maintenance, 07/24/20 13:33:00 EST, [id number], 179, cm, 07/18/20 14:54:00 EST, Height, 113.6, kg, 01/22/19 15:29:00 EDT, Dry Weight Start Date: 07/24/20 Status: Ordered ZyrTEC 10 mg oral tablet 2 tablet = 20 mg, By Mouth, Daily, # 30 tablet, 0 Refills, Maintenance, 01/22/19 19:00:54 EDT, Tablet Start Date: 01/22/19 Status: Ordered Problem List Condition Effective Dates Status Health Status Inform ant Abdominal discomfort(Confirmed) Active Acne(Confirmed) Active Acute sinusitis(Confirmed) Active Allergic rhinitis, unspecified(Confirmed) Active Asthma(Confirmed) Active Chronic headache(Confirmed) Active Amos-Danlos syndrome(Confirmed) Active Endometriosis(Confirmed) Active Fibromyalgia(Confirmed) Active Tommy's thyroiditis(Confirmed) Active Insomnia(Confirmed) Active Lyme disease(Confirmed) Active Mast cell activation(Confirmed) Active Migraine(Confirmed) Active Recurrent UTI(Confirmed) Active Sacroiliac joint pain(Confirmed) Active
--- OUTSIDE RECORDS SUMMARY | 2024-03-27 15:05 | XMS_ITS | Continuity of Care Document ---
Author Organization [facility] Address [address] [place] [address]- Care Team Providers Care Airways Control Specialist Name Role Phone Yaima Brizuela MD Primary Care Physician [place] [facility] [place] 11[place]20 [facility] [address] [place] [address]- Attending Physician: Jason Gonzalez Admitting Physician: AdmtrJason Referring Physician: Admtr, Ar8 Allergies, Adverse Reactions, Alerts Substance Reaction Severity [...] 0 Refills, Maintenance, 10/07/20 8:17:00 EDT, Tablet, [facility]/pharmacy #[id number], Partial fill upon patient request [...] 56 tablet, 0 Refills, Acute, 08/20/20 8:36:00EDT, [facility] STORE [id number], 179, cm, 07/18/20 14:54:00 EST, Height, 113.6, [...] Refills, Soft Stop, 10/25/19 11:51:00 EDT, Shampoo, [facility]/pharmacy #[id number], 1 application Topically Daily, 113.6, [...] Physician Stop 03/02/21 12:22:00 EDT, 05/06/20 12:22:00 [facility], [facility] # 302, 1 tablet... Start Date: [...] Daily, # 100 tablet, 3 Refills, Maintenance, 10/10/19 11:17:00 EDT, Tablet, [facility]/pharmacy #[id number], 113.6, kg, 01/22/19 15:29:00 EDT, Dry Weight Start Date: 10/10/19 Status: Ordered rizatriptan 5 mg oral tablet 1 tablet = 5 mg, By Mouth, Daily, PRN for migraine headache, may repeat dose every 2 hours up to a maximum of 3, # 30 tablet, 5 Refills, Maintenance, 10/09/20 16:46:00 EDT, Tablet, [facility]/pharmacy #[id number], Partial fill upon patient request [...] tablet, 5 Refills, Maintenance, 07/25/20 12:12:00 EST, [facility] # [facility], 179, cm, 07/18/20 14:54:00 EST, Height, 113.6, kg, 01/22/19 15:29:00 EDT, Dry Weight Start Date: 07/25/20 Status: Ordered zolpidem 10 mg oral tablet See Instructions, TAKE ONE TABLET BY MOUTH AT BEDTIME NEEDED 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, # 30 tablet, 5 Refills, Maintenance, 07/24/20 13:33:00 EST, [facility]/pharmacy #[id number], 179, cm, 07/18/20 14:54:00 EST, Height, [...]
--- OUTSIDE RECORDS SUMMARY | 2024-03-27 15:05 | XMS_ITS | Continuity of Care Document ---
Author Organization [facility] Address [address] [place] [address]- Care Team Providers Care Data Warehouse Specialist Name Role Phone Yaima Brizuela MD Primary Care Physician [place] [facility] [id number] Date(s): 07/22/23 - 08/21/23 [facility] [address] [place] [address]- Allergies, Adverse Reactions, Alerts Substance Reaction Severity Status terazosin DIZZINESS Active Glutens Active Xolair anaphylaxis Active Immunizations Given and Recorded Vaccine Date Status Refusal Reason SARS-CoV-2(COVID-19)mRNA-LNP vac([id number]) 03/18/23 Recorded [id number] 12y+ bivalent booster vax 03/26/22 Recorded SARS-CoV-2 (COVID-19) mRNA BNT-162b2 vac 1 06/25/21 Recorded SARS-CoV-2 (COVID-19) mRNA BNT-162b2 vac 01/03/21 Recorded SARS-CoV-2 (COVID-19) mRNA BNT-162b2 vac 12/13/20 Recorded 1Result Comment: 3rd dose Medications candesartan 4 mg oral tablet 1/2 TO 1 TABLET, By Mouth, Daily, # 90 tablet, 1 Refills, Maintenance, 03/14/23 6:44:00 EDT, [facility], 178, cm, 01/24/23 15:44:00 EDT, Height, 109.5, kg, 11/09/22 21:34:00 EDT, Dry Weight Start Date: 03/14/23 Status: Ordered Claritin 10 mg oral tablet 20 mg, 2, tablet, By Mouth, Daily, # 30 tablet, Refills 0, Maintenance, 01/22/19 19:00:58 EDT Start Date: 01/22/19 Status: Ordered Cranberry 0 Refills, Maintenance, 06/10/23 14:23:00 EST, Partial fill upon patient request if the prescription is for a schedule II opioid drug. Start Date: 06/10/23 Status: Ordered D-mannose 2g daily D-mannose 2g daily, Refills 0, Maintenance, 07/26/23 10:59:00 EST, Supply Start Date: 07/26/23 Status: Ordered Fish Oil By Mouth, 0 Refills, Maintenance, 06/10/23 14:23:00 EST, Partial fill upon patient request if the prescription is for a schedule II opioid drug. Start Date: 06/10/23 Status: Ordered fluconazole 150 mg oral tablet [...] opioid drug. Start Date: 07/16/21 Status: Ordered ketotifen 0.025% ophthalmic solution 1 drops, Eyes, Both, Every 8 hours, # 7.5 mL, 1 Refills, Maintenance, 08/25/22 15:57:00 EDT, Solution, [facility]/pharmacy #[id number], Partial fill upon patient request if the prescription is for a schedule II opioid drug., 1 drops Eyes, Both Every 8 hours, 177.8... Start Date: 08/25/22 Status: Ordered liothyronine 25 mcg oral tablet See Instructions, TAKES 4 TABS BY Mouth Daily, 0 Refills, Maintenance, 03/05/19 15:16:09 EDT, Tablet Start Date: 03/05/19 Status: Ordered ondansetron 4 mg oral tablet, disintegrating DISSOLVE 1 TABLET IN MOUTH EVERY 8 HOURS NEEDED FOR NAUSEA AND VOMITING (INS ONLY COVERS 1 DAILY) Start Date: 06/17/22 Status: Ordered Probiotic Formula 1 capsule, By Mouth, Daily, 0 Refills, Maintenance, 01/22/19 19:02:57 EDT Start Date: 01/22/19 Status: Ordered Qulipta 30 mg oral tablet 1 tablet = 30 mg, By Mouth, Daily, # 90 tablet, 3 Refills, Maintenance, 08/03/23 13:17:00 EST, Tablet, [facility]/pharmacy #[id number], Partial fill upon patient request if the prescription is for a schedule II opioid drug., 178, cm, 07/26/23 10:49:00 EST, Height,... Start Date: 08/03/23 Stop Date: 07/28/24 Status: Ordered Tessalon Perles = 100 mg, By Mouth, 3 times a day, 0 Refills, Maintenance, 12/04/19 9:43:00 EDT Start Date: 12/04/19 Status: Ordered Vitamin B Complex oral tablet, extended release By Mouth, Daily, 0 Refills, Maintenance, 07/26/23 11:00:00 EST, Partial fill upon patient request if the prescription is for a schedule II opioid drug. Start Date: 07/26/23 Status: Ordered Vitamin B12 = 5,000 mcg, [...] intl units oral capsule 1 capsule = 250 mcg, By Mouth, Every week, # 5 capsule, 0 Refills, Maintenance, 06/10/23 14:22:00 EST, Capsule, Partial fill upon patient request if the prescription is for a schedule II opioid drug. Start Date: 06/10/23 Status: Ordered Vitamin K1 100mcg daily, 0 Refills, Maintenance, 10/24/19 15:37:00 EDT Start Date: 10/24/19 Status: Ordered Zetonna 37 mcg/inh nasal aerosol 1 sprays, Nares, Both, Daily, # 6.1 Gm, 5 Refills, Maintenance, 02/07/23 16:36:00 EDT, [facility]/pharmacy#[id number], Partial fill upon patient request if the prescription is for a schedule II opioid drug., 178, cm, 01/24/23 15:44:00 EDT, Height, 109.5, kg, 06/0... Start Date: 02/07/23 Status: Ordered zolpidem 10 mg oral tablet See Instructions, TAKE 1 TABLET BY MOUTH AT BEDTIME NEEDED 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 AURABINDO EMERGING TECHNOLOGIES DIRECTOR, # 30 tablet, 5 Refills, Maintenance, 02/22/23 13:51:00 EDT, [facility]/pharmacy #[id number], AURABINDO EMERGING TECHNOLOGIES DIRECTOR ONLY PLEASE, 178, cm, 01/24/23 15:44:00 EDT, He... Start Date: 02/22/23 Status: Ordered ZyrTEC 10 mg oral tablet 2 tablet = 20 mg, By Mouth, Daily, # 30 tablet, 0 Refills, Maintenance, 01/22/19 19:00:54 EDT, Tablet Start Date: 01/22/19 Status: Ordered Problem List Condition Confirmation Course Effective Dates Status H ealth Status Informant Abdominal discomfort Confirmed Active Acne Confirmed Active Acute sinusitis Confirmed Active Allergic rhinitis Confirmed Active Chronic headache Confirmed Active Amos-Danlos syndrome Confirmed Active Endometriosis Confirmed Active Fibromyalgia Confirmed Active Tommy's thyroiditis Confirmed Active Intractable headache Confirmed Active Insomnia Confirmed Active Lyme disease Confirmed Active Mast cell activation Confirmed Active Memory change Confirmed Active Migraine Confirmed Active Migraines Confirmed Active Obese class II Confirmed Active Recurrent UTI Confirmed Active RUQ pain Confirmed Active Sacroiliac joint pain Confirmed Active Social History Social History Type Response Smoking Status Never (less than 100 in lifetime) entered on: 05/14/21 Sex Patient Care team information Care Team Personnel Name: Yaima Brizuela MD Position: S Physician - Primary Care Member Role: PCP Address: Address: [address] [place] [address] [place] [address]- [place] Care Team Related Persons Name: AISHA ESTEVES Address: home [address] [facility] [address] [place] [address] Name: CECE ESTEVES Address: [place] [address] Name: CECE NUÑEZ Address: home [address] [place] [address]
--- OUTSIDE RECORDS SUMMARY | 2024-03-27 15:05 | XMS_ITS | Continuity of Care Document ---
Author Organization [facility] Address [address] [place] [address]- Care Team Providers Care Round Boner Name Role Phone Chata HUGHES, Yaima Reed Primary Care Physician [phone] [place]counter [facility] [place] Date(s): 04/14/23 - 05/14/23 [facility] [address] [place] [address]- Allergies, Adverse Reactions, Alerts Substance Reaction Severity Status terazosin DIZZINESS Active Glutens Active Xolair anaphylaxis Active Immunizations Given and Recorded Vaccine Date Status Refusal Reason SARS-CoV-2(COVID-19)mRNA-LNP vac([id number]) 03/18/23 Recorded [id number] 12y+ bivalent booster vax 03/26/22 Recorded SARS-CoV-2 (COVID-19) mRNA BNT-162b2 vac 1 06/25/21 Recorded SARS-CoV-2 (COVID-19) mRNA BNT-162b2 vac 01/03/21 Recorded SARS-CoV-2 (COVID-19) mRNA BNT-162b2 vac 12/13/20 Recorded 1Result Comment: 3rd dose Medications B 100 Complex By Mouth, Daily, 0 Refills, Maintenance, 10/24/19 15:36:00 EDT Start Date: 10/24/19 Status: Ordered candesartan 4 mg oral tablet 1/2 TO 1 TABLET, By Mouth, Daily, # 90 tablet, 1 Refills, Maintenance, 03/14/23 6:44:00 EDT, [facility], 178, cm, 01/24/23 15:44:00 EDT, Height, 109.5, [...] Refills, Soft Stop, 10/25/19 11:51:00 EDT, Shampoo, [facility]/pharmacy #[id number], 1 application Topically Daily, 113.6, kg, 01/22/19 15:29:00 EDT, Dry Weight Start Date: 10/25/19 Status: Ordered ketotifen 0.025% ophthalmic solution 1 drops, Eyes, Both, Every 8 hours, # 7.5 mL, 1 Refills, Maintenance, 08/25/22 15:57:00 EDT, Solution, [facility]/pharmacy #[id number], Partial fill upon patient request [...] oral tablet 1 tablet = 30 mg, 0 Refills, Maintenance, 01/20/23 11:34:00 EDT, Partial fill upon patient request if the prescription is for a schedule II opioid drug. Start Date: 01/20/23 Status: Ordered Tessalon Perles = 100 mg, By Mouth, 3 times a day, 0 Refills, Maintenance, 12/04/19 9:43:00 EDT Start Date: 12/04/19 Status: Ordered Trelegy Ellipta 200 mcg-62.5 mcg-25 mcg/inh inhalation powder 1 puffs, Inhalation, Daily, at the same time every day, 0 Refills, Maintenance, 01/20/23 11:31:00 EDT, Powder, Partial fill upon patient request if the prescription is for a schedule II opioid drug. Start Date: 01/20/23 Status: Ordered Vitamin B12 = 5,000 mcg, [...] Gm, 5 Refills, Maintenance, 02/07/23 16:36:00 EDT, [id number], Partial fill upon patient request if the prescription is for a schedule II opioid drug., 178, cm, 01/24/23 15:44:00 EDT, Height, 109.5, kg, 06/0... Start Date: 02/07/23 Status: Ordered zolpidem 10 mg oral tablet See Instructions, TAKE 1 TABLET BY MOUTH AT BEDTIME NEEDED 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 AURABINDO DATABASE DBA, # 30 tablet, 5 Refills, Maintenance, 02/22/23 13:51:00 EDT, [id number], AURABINDO DATABASE DBA ONLY PLEASE, 178, cm, 01/24/23 15:44:00 EDT, [...] Team Personnel Name: Yaima Brizuela MD Position: [facility] Physician - Primary Care Member Role: PCP Address: Address: [address] [place] [address]- Care Team Related Persons Name: AISHA ESTEVES Address: home [address] [address] Name: CECE ESTEVES Address: [place] [address] Name: CECE NUÑEZ Address: home [address] [place] [address]
--- OUTSIDE RECORDS SUMMARY | 2024-03-27 15:05 | XMS_ITS | Continuity of Care Document ---
Author Organization [facility] Address [address] [place] [address]- Care Team Providers Care Steaming Cabinet Tender Name Role Phone Yaima Brizuela MD Primary Care Physician [phone] [place] [facility] [place] 07/03/20 - 07/10/20 [facility] [address] [place] [address]- Encounter Diagnosis Amos-Danlos syndrome(Discharge Diagnosis) - 07/03/20 Endometriosis(Discharge Diagnosis) - 07/03/20 Fibromyalgia(Discharge Diagnosis) - 07/03/20 Tommy's thyroiditis(Discharge Diagnosis) - 07/03/20 Attending Physician: Yaima Brizuela MD Allergies, Adverse Reactions, Alerts Substance Reaction Severity [...] Dry Weight Start Date: 10/25/19 Status: Ordered B 100 Complex By Mouth, [...] 9:40:00 EDT Start Date: 12/04/19 Status: Ordered Folic Acid = 100 mcg, Daily, 0 Refills, Maintenance, 01/22/19 19:02:04 EDT Start Date: 01/22/19 Status: Ordered ipratropium nasal 21 mcg/inh spray 0 Refills, Maintenance, 06/01/19 12:48:00 EST Start Date: 06/01/19 Status: Ordered ketoconazole 2% topical shampoo 1 application, Topically, Daily, # 120 mL, 0 Refills, Soft Stop, 10/25/19 11:51:00 EDT, Shampoo, [facility]/pharmacy #[id number], 1 application Topically Daily, [...] Physician Stop 03/02/21 12:22:00 EDT, 05/06/20 12:22:00 EST, [facility] # 302, 1 tablet... Start Date: [...] 3 Refills, Maintenance, 10/10/19 11:17:00 EDT, Tablet, [facility]/pharmacy #[id number], 113.6, kg, 01/22/19 15:29:00 EDT, Dry Weight Start Date: 10/10/19 Status: Ordered SUMAtriptan 50 mg oral tablet [...] See Instructions, TAKE ONE TABLET BY MOUTH ONCE DAILY AT BEDTIME NEEDED 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, # 30 tablet, 3 Refills, Acute 11/20/20 15:45:00 EDT, 11/21/19 15:42:00 EDT, [facility] # 302, 113.6, kg, 01/22/19 15:29:00 EDT, Dry Weight Start Date: 11/21/19 Stop Date: 11/20/20 Status: Ordered zolpidem 10 mg oral tablet See Instructions, TAKE ONE TABLET BY MOUTH AT BEDTIME NEEDED 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, # 30 tablet, 3 Refills, Maintenance, 04/21/20 17:29:00 EST, [facility] # 302, 179, cm, 04/07/20 11:04:00 EST, Height, 113.6, kg, 01/22/19 15:29:00 EDT, Dry Weight Start Date: 04/21/20 Status: Ordered ZyrTEC 10 mg oral tablet [...] Lyme disease(Confirmed) Active Mast cell activation(Confirmed) Active Sacroiliac joint pain(Confirmed) Active Diagnosis Diagnosis Type Effective Dates Health Status Clinical Service Informant Amos-Danlos syndrome Discharge Diagnosis 07/03/20 Endometriosis Discharge Diagnosis 07/03/20 Fibromyalgia Discharge Diagnosis 07/03/20 Tommy's thyroiditis Discharge Diagnosis 07/03/20
--- OUTSIDE RECORDS SUMMARY | 2024-03-27 15:05 | XMS_ITS | Continuity of Care Document ---
Author Organization [facility] Address [address] [place] [address]- Care Team Providers Care Docking Pilot Name Role Phone Yaima Brizuela MD Primary Care Physician [phone] Encounter [facility] Date(s): 03/25/23 - 04/24/23 [facility] [address] [place], [place] [address] Allergies, Adverse Reactions, Alerts Substance Reaction Severity Status terazosin DIZZINESS Active Glutens Active Xolair anaphylaxis Active Immunizations Given and Recorded Vaccine Date Status Refusal Reason [id number] 12y+ bivalent booster vax 03/26/22 Recorded SARS-CoV-2 [...] Refills, Maintenance, 03/14/23 6:44:00 EDT, [id number], 178, cm, 01/24/23 15:44:00 EDT, Height, 109.5, [...] Refills, Soft Stop, 10/25/19 11:51:00 EDT, Shampoo, [facility]/pharmacy #[id number], 1 application Topically Daily, 113.6, kg, 01/22/19 15:29:00 EDT, Dry Weight Start Date: 10/25/19 Status: Ordered ketotifen 0.025% ophthalmic solution 1 drops, Eyes, Both, Every 8 hours, # 7.5 mL, 1 Refills, Maintenance, 08/25/22 15:57:00 EDT, Solution, [facility]/pharmacy #[id number], Partial fill upon patient request [...] MOUTH AT BEDTIME NEEDED 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 AURABINDO EMBOSSED OR IMPRESSED LETTERING PAINTER, # 30 tablet, 5 Refills, Maintenance, 02/22/23 13:51:00 EDT, [id number], AURABINDO EMBOSSED OR IMPRESSED LETTERING PAINTER ONLY PLEASE, 178, cm, 01/24/23 15:44:00 EDT, [...] Team Personnel Name: Yaima Brizuela MD Position: [facility] Physician - Primary Care Member Role: PCP Address: Address: [address] [place] [address]- Care Team Related Persons Name: AISHA ESTEVES Address: home [address] [facility] [address] [place] [address] Name: CECE ESTEVES Address: [place] [address] Name: CECE NUÑEZ Address: home [address] [place] [address]
--- OUTSIDE RECORDS SUMMARY | 2024-03-27 15:05 | XMS_ITS | Continuity of Care Document ---
Author Organization [facility] Address [address] [place] [address]- Care Team Providers Care Research Associate Quality Control Qc Name Role Phone Chata HUGHES, Yaima Reed Primary Care Physician Encounter [facility] [place] Date(s): 05/18/21 - 06/17/21 [facility] [address] [place] [address]- Attending Physician: Jason Gonzalez Admitting Physician: AdmJason thayer Referring Physician: AdmtrJason Allergies, Adverse Reactions, Alerts Substance Reaction Severity [...] 15:36:00 EDT Start Date: 10/24/19 Status: Ordered benzonatate 100 mg oral capsule 0 Refills, Maintenance, 05/14/21 11:32:00 EST, Partial fill upon patient request if the prescription is for a schedule II opioid drug. Start Date: 05/14/21 Status: Ordered Claritin 10 mg oral tablet [...] 9:40:00 EDT Start Date: 12/04/19 Status: Ordered Disulfiram By Mouth, Daily, 25 mg 8 x week adding 25mg every few days, Refills 0, Maintenance, 04/21/21 11:00:00 EST, Partial fill upon patient request if the prescription is for a schedule II opioid drug. Start Date: 04/21/21 Status: Ordered Folic Acid = 100 mcg, Daily, 0 Refills, Maintenance, 01/22/19 19:02:04 EDT Start Date: 01/22/19 Status: Ordered Hiprex = 1 Gm, By Mouth, 2 times a day, 0 Refills, Maintenance, 04/21/21 11:00:00 EST, Partial fill upon patient request if the prescription is for a schedule II opioid drug. Start Date: 04/21/21 Status: Ordered ipratropium nasal 21 mcg/inh spray 0 Refills, Maintenance, 06/01/19 12:48:00 EST Start Date: 06/01/19 Status: Ordered Junel 06/25 By Mouth, Daily, 0 Refills, Maintenance, 04/21/21 11:00:00 EST, Partial fill upon patient request if the prescription is for a schedule II opioid drug. Start Date: 04/21/21 Status: Ordered Junel 06/25 oral tablet 0 Refills, Maintenance, 05/14/21 11:12:00 EST, Partial fill upon patient request if the prescription is for a schedule II opioid drug. Start Date: 05/14/21 Status: Ordered ketoconazole 2% topical shampoo 1 application, Topically, Daily, # 120 mL, 0 Refills, Soft Stop, 10/25/19 11:51:00 EDT, Shampoo, [facility]/pharmacy #[id number], 1 application Topically Daily, 113.6, kg, [...] 3 Refills, Maintenance, 12/09/20 11:35:00 EDT, Tablet, [facility]/pharmacy #[id number], 179, cm, 11/27/20 14:03:00 EDT, Height, 121.1, kg, 10/22/20 14:46:00 EDT, Dry Weight Start Date: 12/09/20 Status: Ordered Tessalon Perles = 100 mg, By Mouth, 3 times a day, 0 Refills, Maintenance, 12/04/19 9:43:00 EDT Start Date: 12/04/19 Status: Ordered Vitamin B12 = 5,000 mcg, 0 Refills, Maintenance, 01/22/19 19:02:09 EDT Start Date: 01/22/19 Status: Ordered Vitamin C 1000 mg oral tablet 1 tablet = 1,000 mg, By Mouth, Daily, 0 Refills, Maintenance, 04/21/21 11:00:00 EST, Partial [...] INSOMNIA, # 30 tablet, 5 Refills, Maintenance, 02/17/21 15:40:00 EDT, [facility] 302, 179, cm, 02/12/21 11:02:00 EDT, Height, 121.1, kg, 10/22/20 14:46:00 EDT, Dry Weight Start Date: 02/17/21 Status: Ordered ZyrTEC 10 mg oral tablet [...] Active Mast cell activation(Confirmed) Active Migraine(Confirmed) Active Obese class II(Confirmed) Active Recurrent UTI(Confirmed) Active Sacroiliac joint pain(Confirmed) Active Social History Social History Type Response Smoking Status Never (less than 100 in lifetime) entered on: 05/14/21 Sex
--- OUTSIDE RECORDS SUMMARY | 2024-03-27 15:05 | XMS_ITS | Continuity of Care Document ---
Author Organization [facility] Address [address] [place] [id number]- Care Team Providers Care Otr Hazmat Company Driver Name Role Phone Chata HUGHES, Yaima Reed Primary Care Physician Encounter [facility] [place] Date(s): 02/08/23 - 06/08/23 [facility] [address] [place] [id number] Attending Physician: Jay Jay Santiago MD Allergies, Adverse Reactions, Alerts Substance Reaction Severity Status terazosin DIZZINESS Active Glutens Active Xolair anaphylaxis Active Immunizations Given and Recorded Vaccine Date Status Refusal Reason SARS-CoV-2(COVID-19)mRNA-LNP vac([id number]) 03/18/23 Recorded [id number] 12y+ bivalent booster vax 03/26/22 Recorded SARS-CoV-2 [...] Refills, Maintenance, 03/14/23 6:44:00 EDT, [facility], 178, cm, 01/24/23 15:44:00 EDT, Height, 109.5, [...] Refills, Soft Stop, 10/25/19 11:51:00 EDT, Shampoo, [facility]/pharmacy #[id number], 1 application Topically Daily, 113.6, kg, 01/22/19 15:29:00 EDT, Dry Weight Start Date: 10/25/19 Status: Ordered ketotifen 0.025% ophthalmic solution 1 drops, Eyes, Both, Every 8 hours, # 7.5 mL, 1 Refills, Maintenance, 08/25/22 15:57:00 EDT, Solution, [facility]/pharmacy #[id number], Partial fill upon patient request if the [...] MOUTH AT BEDTIME NEEDED 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 AURABINDO SAWDUST MACHINE OPERATOR, # 30 tablet, 5 Refills, Maintenance, 02/22/23 13:51:00 EDT, [id number], AURABINDO SAWDUST MACHINE OPERATOR ONLY PLEASE, 178, cm, 01/24/23 15:44:00 EDT, [...] Team Personnel Name: Yaima Brizuela MD Position: [facility] Physician - Primary Care Member Role: PCP Address: Address: [address] [place] [address]- Care Team Related Persons Name: AISHA ESTEVES Address: home [address] [address] Name: CECE ESTEVES Address: [place] [address] Name: CECE NUÑEZ Address: home [address] [place] [address]
--- OUTSIDE RECORDS SUMMARY | 2024-03-27 15:05 | XMS_ITS | Continuity of Care Document ---
Author Organization [facility] Address [address] [place] [address]- Care Team Providers Care Veterinary Technician Assistant Name Role Phone Chata HUGHES, Yaima Reed Primary Care Physician Encounter [facility] [id number] Date(s): 12/27/23 - 01/26/24 [facility] [address] [place] [address]- Allergies, Adverse Reactions, Alerts Substance Reaction Severity Status terazosin DIZZINESS Active Glutens Active Xolair anaphylaxis Active Immunizations Given and Recorded Vaccine Date Status Refusal Reason SARS-CoV-2(COVID-19)mRNA-LNP vac(oun315) 03/18/23 Recorded [id number] 12y+ bivalent booster vax 03/26/22 Recorded SARS-CoV-2 (COVID-19) mRNA BNT-162b2 vac 1 06/25/21 Recorded SARS-CoV-2 (COVID-19) mRNA BNT-162b2 vac 01/03/21 Recorded SARS-CoV-2 (COVID-19) mRNA BNT-162b2 vac 12/13/20 Recorded 1Result Comment: 3rd dose Medications candesartan 4 mg oral tablet 1/2 TO 1 TABLET, By Mouth, Daily, # 90 tablet, 1 Refills, Maintenance, 01/18/24 16:13:00 EDT, [id number], 178, cm, 01/09/24 15:03:00 EDT, Height, 113.3, kg, 01/09/24 15:03:00 EDT, Dry Weight Start Date: 01/18/24 Status: Ordered Claritin 10 mg oral tablet [...] 1 Refills, Maintenance, 08/25/22 15:57:00 EDT, Solution, [facility]/pharmacy #[id number], Partial fill upon patient request [...] 3 Refills, Maintenance, 08/03/23 13:17:00 EST, Tablet, [facility]/pharmacy #[id number], Partial fill upon patient request [...] Status: Ordered Zetonna 37 mcg/inh nasal aerosol See Instructions, USE 1 SPRAYS IN BOTH NARES DAILY, # 6.1 each, 11 Refills, Maintenance, 11/28/23 8:27:00 EDT, [id number], 178, cm, 11/17/23 10:55:00 EDT, Height, 113, kg, 11/17/23 10:55:00 EDT,Dry Weight Start Date: 11/28/23 Status: Ordered zolpidem 10 mg oral tablet See Instructions, TAKE 1 TABLET BY MOUTH AT BEDTIME NEEDED 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 AURABINDO INSULATION CUTTER AND FORMER, # 30 tablet, 5 Refills, Maintenance, 08/25/23 12:51:00 EDT, [id number], AURABINDO INSULATION CUTTER AND FORMER ONLY PLEASE, 178, cm, 08/11/23 10:59:00 EST, He... Start Date: 08/25/23 Status: Ordered ZyrTEC 10 mg oral tablet [...] Confirmed Active Sacroiliac joint pain Confirmed Active Vertigo Confirmed Active Social History Social History Type Response Smoking Status Never (less than 100 in lifetime) entered on: 05/14/21 Sex Patient Care team information Care Team Personnel Name: Yaima Brizuela MD Position: [facility] Physician - Primary Care Member Role: PCP Address: Address: [address] [place] [address]- Care Team Related Persons Name: AISHA ESTEVES Address: home [address] [facility] [address] [place] [address] Name: CECE ESTEVES Address: [place] [address] Name: CECE NUÑEZ Address: home [address] [place] [address]
--- OUTSIDE RECORDS SUMMARY | 2024-03-27 15:05 | XMS_ITS | Continuity of Care Document ---
Author Organization [facility] Address [address] [place] [address]- Care Team Providers Care Promotions Specialist Name Role Phone Yaima Brizuela MD Primary Care Physician [phone] [place] [facility] [place] Date(s): 06/29/19 - 07/06/19 [facility] [address] [place] [address]- [facility] Attending Physician: Yaima Brizuela MD Allergies, Adverse Reactions, Alerts Substance Reaction Severity Status Glutens Active Medications Azithromycin 5 Day Dose Pack 250 mg oral tablet 1 pack/packet, By Mouth, Once, # 6 tablet, 0 Refills, Soft Stop, 07/02/19 15:06:00 EST, Tablet, [id number], 113.6, kg, 01/22/19 15:29:00 EDT, Dry Weight Start Date: 07/02/19 Status: Ordered Claritin 10 mg oral tablet 20 mg, 2, tablet, By Mouth, Daily, # 30 tablet, Refills 0, Maintenance, 01/22/19 19:00:58 EDT Start Date: 01/22/19 Status: Ordered D MANNOSE 1 GRAM D MANNOSE 1 GRAM, Refills 0, Maintenance, 01/22/19 19:02:43 EDT, Compound Start Date: 01/22/19 Status: Ordered Folic Acid = 100 mcg, Daily, 0 Refills, Maintenance, 01/22/19 19:02:04 EDT Start Date: 01/22/19 Status: Ordered ipratropium nasal 21 mcg/inh spray 0 Refills, Maintenance, 06/01/19 12:48:00 EST Start Date: 06/01/19 Status: Ordered liothyronine 25 mcg oral tablet 1 tablet = 25 mcg, By Mouth, Daily, # 30 tablet, 0 Refills, Maintenance, 03/05/19 15:16:09 EDT, Tablet Start Date: 03/05/19 Status: Ordered Monural 3 gm oral powder for reconstitution 1 DOSE EVERY 48 HOURS DIRECTED Start Date: 01/22/19 Status: Ordered Probiotic Formula 1 capsule, By Mouth, Daily, 0 Refills, Maintenance, 01/22/19 19:02:57 EDT Start Date: 01/22/19 Status: Ordered riboflavin 100 mg oral tablet See Instructions, 4 tablet By Mouth Daily, # 100 tablet, 0 Refills, Maintenance, 03/05/19 15:11:48 EDT, Tablet Start Date: 03/05/19 Status: Ordered Vitamin B12 = 5,000 mcg, 0 Refills, Maintenance, 01/22/19 19:02:09 EDT Start Date: 01/22/19 Status: Ordered Xolair Prefilled Syringe Subcutaneous Infusion, 0 Refills, Maintenance, 06/29/19 11:50:00 EST Start Date: 06/29/19 Status: Ordered zolpidem 10 mg oral tablet 1 tablet = 10 mg, By Mouth, Daily at bedtime, PRN insomnia, for 30 days, # 30 tablet, 3 Refills, Acute 08/18/19 16:36:12 EDT, 04/20/19 16:36:12 EST, Tablet Start Date: 04/20/19 Stop Date: 08/18/19 Status: Ordered ZyrTEC 10 mg oral tablet 2 tablet = 20 mg, By Mouth, Daily, # 30 tablet, 0 Refills, Maintenance, 01/22/19 19:00:54 EDT, Tablet Start Date: 01/22/19 Status: Ordered Problem List Condition Effective Dates Status Health Status Inform ant Allergic rhinitis, unspecified(Confirmed) Active Asthma(Confirmed) Active Amos-Danlos syndrome(Confirmed) Active Endometriosis(Confirmed) Active Fibromyalgia(Confirmed) Active Tommy's thyroiditis(Confirmed) Active Lyme disease(Confirmed) Active Mast cell activation(Confirmed) Active Vital Signs Most recent to oldest [Reference Range]: 1 Weight 116 kg (06/29/19 11:24 AM) Oxygen Saturation [94-100 %] 98 % (06/29/19 11:24 AM) Pulse Rate [55-90 bpm] 108 bpm *H* (06/29/19 11:24 AM) Blood Pressure [90-138/55-84 mm Hg] 118/ 66mm Hg (06/29/19 11:24 AM) Respiratory Rate [16-30 br/min] 16 br/mi n (06/29/19 11:24 AM) Temperature [96.8-100.4 DegF] 98.1 DegF (06/29/19 11:24 AM) Mode of Delivery (Oxygen) Room air (06/29/19 11:24 AM) Blood pressure sites Arm, right (06/29/19 11:24 AM) Temperature Route Oral (06/29/19 11:24 AM) Weight Obtained Via Standing scale (06/29/19 11:24 AM)
--- OUTSIDE RECORDS SUMMARY | 2024-03-27 15:05 | XMS_ITS | Continuity of Care Document ---
Author Organization [facility] Address [address] [place] [address]- Care Team Providers Care Lead Caster Helper Name Role Phone Yaima Brizuela MD Primary Care Physician En[place] [facility] Date(s): 10/18/22 - 10/25/22 [facility] [address] [place] [address]- Encounter Diagnosis Amos-Danlos syndrome(Discharge Diagnosis) - 10/18/22 Endometriosis(Discharge Diagnosis) - 10/18/22 Tommy's thyroiditis(Discharge Diagnosis) - 10/18/22 Mast cell activation(Discharge Diagnosis) - 10/18/22 Migraines(Discharge Diagnosis) - 10/18/22 RUQ pain(Discharge Diagnosis) - 10/18/22 Intractable headache(Discharge Diagnosis) - 10/18/22 Memory change(Discharge Diagnosis) - 10/18/22 Attending Physician: Yaima Brizuela MD Allergies, Adverse Reactions, Alerts Substance Reaction Severity Status terazosin DIZZINESS Active Glutens Active Xolair anaphylaxis Active Immunizations Given and Recorded Vaccine Date Status Refusal Reason [id number] 12y+ bivalent booster vax 03/26/22 Recorded SARS-CoV-2 [...] Refills, Soft Stop, 10/25/19 11:51:00 EDT, Shampoo, [facility]/pharmacy #[id number], 1 application Topically Daily, 113.6, kg, 01/22/19 15:29:00 EDT, Dry Weight Start Date: 10/25/19 Status: Ordered ketotifen 0.025% ophthalmic solution 1 drops, Eyes, Both, Every 8 hours, # 7.5 mL, 1 Refills, Maintenance, 08/25/22 15:57:00 EDT, Solution, [facility]/pharmacy #[id number], Partial fill upon patient request [...] MOUTH AT BEDTIME NEEDED 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 AURABINDO REINFORCED IRONWORKER, # 30 tablet, 5 Refills, Maintenance, 08/23/22 15:12:00 EDT, [facility]/pharmacy #[id number], AURABINDO REINFORCED IRONWORKER ONLY PLEASE, 177.8, cm, 06/17/22 10:52:00 EST,... [...] Confirmed Active Sacroiliac joint pain Confirmed Active Diagnosis Diagnosis Type Effective Dates Health Status Clinical Service Informant Amos-Danlos syndrome Discharge Diagnosis 10/18/22 Endometriosis Discharge Diagnosis 10/18/22 Tommy's thyroiditis Discharge Diagnosis 10/18/22 Mast cell activation Discharge Diagnosis 10/18/22 Migraines Discharge Diagnosis 10/18/22 RUQ pain Discharge Diagnosis 10/18/22 Intractable headache Discharge Diagnosis 10/18/22 Memory change Discharge Diagnosis 10/18/22 Vital Signs Most recent to oldest [Reference Range]: 1 Height 177.8 cm (10/18/22 11:16 AM) Weight 111.9 kg (10/18/22 11:16 AM) Oxygen Saturation [94-100 %] 98 % (10/18/22 11:16 AM) Pulse Rate [55-90 bpm] 89 bpm (10/18/22 11:16 AM) Body Mass Index [18.5-24.99 kg/m2] 35.4 kg/m2 *>HHI* (10/18/22 11:16 AM) Blood Pressure [90-138/55-84 mm Hg] 110/ 68mm Hg (10/18/22 11:16 AM) Temperature [96.8-100.4 DegF] 97.8 DegF (10/18/22 11:16 AM) Mode of Delivery (Oxygen) Room air (10/18/22 11:16 AM) Blood pressure sites Arm, left (10/18/22 11:16 AM) Temperature Route Temporal (10/18/22 11:16 AM) Weight Obtained Via Standing scale (10/18/22 11:16 AM) Social History Social History Type Response Smoking Status Never (less than 100 in lifetime) entered on: 05/14/21 Sex Patient Care team information Care Team Personnel Name: Yaima Brizuela MD Position: [facility] Primary Care Physician Member Role: PCP Address: Address: [address] [place] [address]- Care Team Related Persons Name: AISHA ESTEVES Address: home [address] [address] Name: CECE ESTEVES Name: CECE NUÑEZ Address: home [address] [place] [address]
--- OUTSIDE RECORDS SUMMARY | 2024-03-27 15:05 | XMS_ITS | Continuity of Care Document ---
Author Organization [facility] Address [address] [place] [address]- Care Team Providers Care Interior Design Program Chair Name Role Phone Yaima Brizuela MD Primary Care Physician Encounter [facility] Date(s): 02/22/23 - 03/24/23 [facility] [address] [place], [place] [address] Allergies, Adverse Reactions, Alerts Substance Reaction Severity Status terazosin DIZZINESS Active Glutens Active Xolair anaphylaxis Active Immunizations Given and Recorded Vaccine Date Status Refusal Reason [id number] 12y+ bivalent booster vax 03/26/22 Recorded SARS-CoV-2 [...] Refills, Maintenance, 03/14/23 6:44:00 EDT, [id number], 178, cm, 01/24/23 15:44:00 EDT, Height, 109.5, [...] Refills, Soft Stop, 10/25/19 11:51:00 EDT, Shampoo, [facility]/pharmacy #[id number], 1 application Topically Daily, 113.6, kg, 01/22/19 15:29:00 EDT, Dry Weight Start Date: 10/25/19 Status: Ordered ketotifen 0.025% ophthalmic solution 1 drops, Eyes, Both, Every 8 hours, # 7.5 mL, 1 Refills, Maintenance, 08/25/22 15:57:00 EDT, Solution, [facility]/pharmacy #[id number], Partial fill upon patient request if [...] MOUTH AT BEDTIME NEEDED 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 AURABINDO BEARINGIZER, # 30 tablet, 5 Refills, Maintenance, 02/22/23 13:51:00 EDT, [id number], AURABINDO BEARINGIZER ONLY PLEASE, 178, cm, 01/24/23 15:44:00 EDT, [...] Team Personnel Name: Yaima Brizuela MD Position: [facility] Physician - Primary Care Member Role: PCP Address: Address: [address] [place] [address]- Care Team Related Persons Name: AISHA ESTEVES Address: home [address] [facility] [address] [place] [address] Name: CECE ESTEVES Address: [place] [address] Name: CECE NUÑEZ Address: home [address] [place] [address]
--- OUTSIDE RECORDS SUMMARY | 2024-03-27 15:05 | XMS_ITS | Continuity of Care Document ---
Author Organization [facility] Address [address] [place] [address]- Care Team Providers Care Medical Malpractice Paralegal Name Role Phone Chata HUGHES, Yaima Reed Primary Care Physician [phone] [place] [facility] [place] 10/27/21 - 11/26/21 [facility] [address] [place] [address]- Allergies, Adverse Reactions, Alerts Substance Reaction Severity Status Glutens Active Xolair anaphylaxis Active Immunizations Given and Recorded Vaccine Date Status Refusal Reason SARS-CoV-2 (COVID-19) mRNA BNT-162b2 vac 1 06/25/21 [...] 15:26:00 EDT Start Date: 12/18/19 Status: Ordered Disulfiram By Mouth, Daily, 25 mg daily, Refills 0, Maintenance, 04/21/21 11:00:00 EST, Partial [...] Refills, Soft Stop, 10/25/19 11:51:00 EDT, Shampoo, [facility]/pharmacy #[id number], 1 application Topically Daily, [...] Status: Ordered Qulipta 30 mg oral tablet 30 each, TAKE 1 TABLET BY MOUTH ONCE A DAY FOR MIGRAINE PREVENTION, 0 Refills, 11/20/21 14:08:00 EDT, Partial fill upon patient request if the prescription is for a schedule II opioid drug. Start Date: 11/20/21 Status: Ordered riboflavin 100 mg oral tablet See Instructions, 4 tablet By Mouth Daily, # 100 tablet, 3 Refills, Maintenance, 12/09/20 11:35:00 EDT, Tablet, [facility]/pharmacy #[id number], 179, cm, 11/27/20 14:03:00 EDT, [...] BY MOUTH AT BEDTIME NEEDED 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 AURABINDLuis M INVESTIGATOR INTERNAL REVENUE, # 30 tablet, 5 Refills, Maintenance, 11/25/21 16:15:00 EDT, [id number], AURABINDO INVESTIGATOR INTERNAL REVENUE ONLY PLEASE, 177.8, cm, 11/20/21 14:05... Start Date: 11/25/21 Status: Ordered zolpidem 10 mg oral tablet See Instructions, TAKE ONE TABLET BY MOUTH AT BEDTIME NEEDED 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, # 30 tablet, 5 Refills, Maintenance, 02/17/21 15:40:00 EDT, [email or web address], 179, cm, 02/12/21 11:02:00 [...] Acute sinusitis(Confirmed) Active Allergic rhinitis, unspecified(Confirmed) Active Chronic headache(Confirmed) Active Amos-Danlos syndrome(Confirmed) Active Endometriosis(Confirmed) Active Fibromyalgia(Confirmed) Active Tommy's thyroiditis(Confirmed) Active Insomnia(Confirmed) Active Lyme disease(Confirmed) Active Mast cell activation(Confirmed) Active Migraine(Confirmed) Active Obese class II(Confirmed) Active Recurrent UTI(Confirmed) Active Sacroiliac joint pain(Confirmed) Active Social History Social History Type Response Smoking Status Never (less than 100 in lifetime) entered on: 05/14/21 Sex
--- OUTSIDE RECORDS SUMMARY | 2024-03-27 15:05 | XMS_ITS | Continuity of Care Document ---
Author Organization [facility] Address [address] [place] [address]- Care Team Providers Care Commercial Drone Software Developer Name Role Phone Yaima Brizuela MD Primary Care Physician [phone] Encounter [facility] Date(s): 02/24/21 - 03/26/21 [facility] [address] [place], [place] [address] Allergies, Adverse Reactions, Alerts Substance Reaction [...] 56 tablet, 0 Refills, Acute, 08/20/20 8:36:00EDT, [id number], 179, cm, 07/18/20 14:54:00 EST, Height, 113.6, [...] Refills, Soft Stop, 10/25/19 11:51:00 EDT, Shampoo, [facility]/pharmacy #[id number], 1 application Topically Daily, 113.6, [...] 3 Refills, Maintenance, 12/09/20 11:35:00 EDT, Tablet, [facility]/pharmacy #[id number], 179, cm, 11/27/20 14:03:00 EDT, Height, 121.1, kg, 10/22/20 14:46:00 EDT, Dry Weight Start Date: 12/09/20 Status: Ordered rizatriptan 5 mg oral tablet 1 tablet = 5 mg, By Mouth, Daily, PRN for migraine headache, may repeat dose every 2 hours up to a maximum of 3, # 30 tablet, 5 Refills, Maintenance, 10/09/20 16:46:00 EDT, Tablet, [id number], Partial fill upon [...] tablet, 5 Refills, Maintenance, 07/24/20 13:33:00 EST, [facility]/pharmacy #[id number], 179, cm, 07/18/20 14:54:00 EST, Height, 113.6, kg, 01/22/19 15:29:00 EDT, Dry Weight Start Date: 07/24/20 Status: Ordered zolpidem 10 mg oral tablet See Instructions, TAKE ONE TABLET BY MOUTH AT BEDTIME NEEDED 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, # 30 tablet, 5 Refills, Maintenance, 02/16/21 15:29:00 EDT, [id number], 179, cm, 02/12/21 11:02:00 EDT, Height, 121.1, kg, 10/22/20 14:46:00 EDT, Dry Weight Start Date: 02/16/21 Status: Ordered zolpidem 10 mg oral tablet See Instructions, TAKE ONE TABLET BY MOUTH AT BEDTIME NEEDED 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, # 30 tablet, 5 Refills, Maintenance, 02/17/21 15:40:00 EDT, [facility] # [facility], 179, cm, 02/12/21 11:02:00 [...]
--- OUTSIDE RECORDS SUMMARY | 2024-03-27 15:05 | XMS_ITS | Continuity of Care Document ---
Author Organization [facility] Address [address] [place] [address]- Care Team Providers Care Behavioral Analyst Name Role Phone Yaima Brizuela MD Primary Care Physician [place] [facility] [place] 01/18/20 - 02/17/20 [facility] [address] [place] [address]- [facility] Allergies, Adverse Reactions, Alerts Substance Reaction Severity Status Glutens Active Medications adapalene 0.1% topical gel 1 application, Topically, [...] Refills, Soft Stop, 10/25/19 11:51:00 EDT, Shampoo, [facility]/pharmacy #[id number], 1 application Topically Daily, 113.6, [...] 3 Refills, Maintenance, 10/10/19 11:17:00 EDT, Tablet, [facility]/pharmacy #[id number], 113.6, kg, 01/22/19 15:29:00 EDT, Dry Weight Start Date: 10/10/19 Status: Ordered Tessalon Perles = 100 mg, [...] Acute 11/20/20 15:45:00 EDT, 11/21/19 15:42:00 EDT, [facility] # 302, 113.6, kg, 01/22/19 15:29:00 EDT, Dry Weight Start Date: 11/21/19 Stop Date: 11/20/20 Status: Ordered ZyrTEC 10 mg oral tablet 2 tablet = 20 mg, By Mouth, Daily, # 30 tablet, 0 Refills, Maintenance, 01/22/19 19:00:54 EDT, Tablet Start Date: 01/22/19 Status: Ordered Problem List Condition Effective Dates Status Health Status Inform ant Abdominal discomfort(Confirmed) Active Acne(Confirmed) Active Acute sinusitis(Confirmed) Active Allergic rhinitis, unspecified(Confirmed) Active Asthma(Confirmed) Active Amos-Danlos syndrome(Confirmed) Active Endometriosis(Confirmed) Active Fibromyalgia(Confirmed) Active Tommy's thyroiditis(Confirmed) Active Insomnia(Confirmed) Active Lyme disease(Confirmed) Active Mast cell activation(Confirmed) Active
--- OUTSIDE RECORDS SUMMARY | 2024-03-27 15:05 | XMS_ITS | Continuity of Care Document ---
Author Organization [facility] Address [address] [place] [address]- Care Team Providers Care Lesson Instructor Name Role Phone Yaima Brizuela MD Primary Care Physician [place] [facility] [place] 10[place]08[place]20 - 11/07/20 [facility] [address] [place], [place] [address] Allergies, Adverse Reactions, Alerts Substance [...] tablet, 0 Refills, Acute, 08/20/20 8:36:00EDT, [facility]ORE [facility], 179, cm, 07/18/20 14:54:00 EST, Height, 113.6, kg, 01/22/19 15:29:00 EDT, DryWeight Start Date: 08/20/20 Status: Ordered Folic Acid = 100 mcg, Daily, 0 Refills, Maintenance, 01/22/19 19:02:04 EDT Start Date: 01/22/19 Status: Ordered guaiFENesin 600 mg oral tablet, extended release 1 tablet = 600 mg, By Mouth, Every 12 hours, for 10 days, with fluids, # 20 tablet, 1 Refills, Acute 11/11/20 18:24:00 EDT, 10/22/20 18:24:00 EDT, ER Tablet, [facility]/pharmacy #[id number], Partial fill upon patient request if the prescription is for a schedule I... Start Date: 10/22/20 Stop Date: 11/11/20 Status: Ordered hydrocortisone/neomycin/polymyxin B otic 1%-0.35%-92336 u/ml solution 2 drops, Ear, Right, 2 times a day, for 7 days, # 10 mL, 0 Refills, Acute 11/13/20 11:49:00 EDT, 11/06/20 11:49:00 EDT, Otic Solution, [facility]/pharmacy #[id number], Partial fill upon patient request if the prescription is for a schedule II opioid drug., 2 drops... Start Date: 11/06/20 Stop Date: 11/13/20 Status: Ordered ipratropium nasal 21 mcg/inh spray 0 Refills, Maintenance, 06/01/19 12:48:00 EST Start Date: 06/01/19 Status: Ordered ketoconazole 2% topical shampoo 1 application, Topically, Daily, # 120 mL, 0 Refills, Soft Stop, 10/25/19 11:51:00 EDT, Shampoo, [facility]/pharmacy #[id number], 1 application Topically Daily, 113.6, kg, [...] Stop 03/02/21 12:22:00 EDT, 05/06/20 12:22:00 EST, [facility], 1 tablet... Start Date: [...] 3 Refills, Maintenance, 10/10/19 11:17:00 EDT, Tablet, [facility]/pharmacy #[id number], 113.6, kg, 01/22/19 15:29:00 EDT, Dry Weight Start Date: 10/10/19 Status: Ordered rizatriptan 5 mg oral tablet 1 tablet = 5 mg, By Mouth, Daily, PRN for migraine headache, may repeat dose every 2 hours up to a maximum of 3, # 30 tablet, 5 Refills, Maintenance, 10/09/20 16:46:00 EDT, Tablet, [facility]/pharmacy #[id number], Partial fill upon patient request if [...] Acute 11/20/20 15:45:00 EDT, 11/21/19 15:42:00 EDT, [facility] # 302, 113.6, kg, 01/22/19 15:29:00 EDT, Dry Weight Start Date: 11/21/19 Stop Date: 11/20/20 Status: Ordered zolpidem 10 mg oral tablet See Instructions, TAKE ONE TABLET BY MOUTH AT BEDTIME NEEDED 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, # 30 tablet, 5 Refills, Maintenance, 07/25/20 12:12:00 EST, [facility] # 302, 179, cm, 07/18/20 14:54:00 EST, Height, 113.6, kg, 01/22/19 15:29:00 EDT, Dry Weight Start Date: 07/25/20 Status: Ordered zolpidem 10 mg oral tablet See Instructions, TAKE ONE TABLET BY MOUTH AT BEDTIME NEEDED 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, # 30 tablet, 5 Refills, Maintenance, 07/24/20 13:33:00 EST, [facility]/pharmacy #[id number], 179, cm, 07/18/20 14:54:00 EST, Height, [...]
--- OUTSIDE RECORDS SUMMARY | 2024-03-27 15:05 | XMS_ITS | Continuity of Care Document ---
Author Organization [facility] Address [address] [place] [address]- Care Team Providers Care Delivery Driver/Supervisor Name Role Phone Chata HUGHES, Yaima Reed Primary Care Physician [place] [facility] [place] 01/14/24 [facility] [address] [place] [address]- Allergies, Adverse Reactions, Alerts Substance Reaction Severity Status terazosin DIZZINESS Active Glutens Active Xolair anaphylaxis Active Immunizations Given and Recorded Vaccine Date Status Refusal Reason SARS-CoV-2(COVID-19)mRNA-LNP vac([id number]) 03/18/23 Recorded [id number] 12y+ bivalent booster vax 03/26/22 Recorded SARS-CoV-2 (COVID-19) mRNA BNT-162b2 vac 1 06/25/21 Recorded SARS-CoV-2 (COVID-19) mRNA BNT-162b2 vac 01/03/21 Recorded SARS-CoV-2 (COVID-19) mRNA BNT-162b2 vac 12/13/20 Recorded 1Result Comment: 3rd dose Medications candesartan 4 mg oral tablet 1/2 TO 1 TABLET, By Mouth, Daily, # 90 tablet, 1 Refills, Maintenance, 03/14/23 6:44:00 EDT, [id number], 178, cm, 01/24/23 15:44:00 EDT, Height, 109.5, [...] Maintenance, 08/25/22 15:57:00 EDT, Solution, [facility]/pharmacy #[id number], Partial fill upon patient request if [...] 3 Refills, Maintenance, 08/03/23 13:17:00 EST, Tablet, [facility]/pharmacy #[id number], Partial fill upon patient request if [...] Refills, Maintenance, 11/28/23 8:27:00 EDT, [facility], 178, cm, 11/17/23 10:55:00 EDT, Height, 113, kg, 11/17/23 10:55:00 EDT,Dry Weight Start Date: 11/28/23 Status: Ordered zolpidem 10 mg oral tablet See Instructions, TAKE 1 TABLET BY MOUTH AT BEDTIME NEEDED 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 AURABINDO FORMING YARDAGE CONTROL OPERATOR, # 30 tablet, 5 Refills, Maintenance, 08/25/23 12:51:00 EDT, [id number], AURABINDO FORMING YARDAGE CONTROL OPERATOR ONLY PLEASE, 178, cm, 08/11/23 10:59:00 EST, [...] Team Personnel Name: Yaima Brizuela MD Position: [facility] Physician - Primary Care Member Role: PCP Address: Address: [address] [place] [address]- Care Team Related Persons Name: AISHA ESTEVES Address: home [address] [place] [address] Name: CECE ESTEVES Address: [place] [address] Name: CECE NUÑEZ Address: home [address] [place] [address]
--- OUTSIDE RECORDS SUMMARY | 2024-03-27 15:05 | XMS_ITS | Continuity of Care Document ---
Author Organization [facility] Address [address] [place] [address]- Care Team Providers Care Tank Filler Name Role Phone Yaima Brizuela MD Primary Care Physician [place] [facility] [place] 08/23/20 [facility] [address] [place], [place] [address] Allergies, Adverse Reactions, Alerts Substance Reaction [...] 56 tablet, 0 Refills, Acute, 08/20/20 8:36:00EDT, [facility], 179, cm, 07/18/20 14:54:00 EST, Height, 113.6, [...] Stop 03/02/21 12:22:00 EDT, 05/06/20 12:22:00 EST, [facility] # 302, 1 tablet... Start [...] 3 Refills, Maintenance, 10/10/19 11:17:00 EDT, Tablet, [facility]/pharmacy #[id number], 113.6, kg, 01/22/19 15:29:00 EDT, Dry [...] Acute 11/20/20 15:45:00 EDT, 11/21/19 15:42:00 EDT, [facility] # 302, 113.6, kg, 01/22/19 15:29:00 EDT, Dry Weight Start Date: 11/21/19 Stop Date: 11/20/20 Status: Ordered zolpidem 10 mg oral tablet See Instructions, TAKE ONE TABLET BY MOUTH AT BEDTIME NEEDED 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, # 30 tablet, 5 Refills, Maintenance, 07/25/20 12:12:00 EST, [facility] # 302, 179, cm, 07/18/20 14:54:00 EST, Height, 113.6, kg, 01/22/19 15:29:00 EDT, Dry Weight Start Date: 07/25/20 Status: Ordered zolpidem 10 mg oral tablet See Instructions, TAKE ONE TABLET BY MOUTH AT BEDTIME NEEDED 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, # 30 tablet, 5 Refills, Maintenance, 07/24/20 13:33:00 EST, [facility]/pharmacy #[id number], 179, cm, 07/18/20 14:54:00 EST, Height, [...]
--- OUTSIDE RECORDS SUMMARY | 2024-03-27 15:06 | XMS_ITS | Continuity of Care Document ---
Author Organization [facility] Address [address] [place] [address]- Care Team Providers Care Apartment Locator Name Role Phone Yaima Brizuela MD Primary Care Physician [phone] [place] [facility] [place](s[place] 08/22/22 - 09/21/22 [facility] [address] [place], [place] [address] Allergies, Adverse Reactions, Alerts Substance Reaction Severity Status terazosin DIZZINESS Active Glutens Active Xolair anaphylaxis Active Immunizations Given and Recorded Vaccine Date Status Refusal Reason [id number] 12y+ bivalent booster vax 03/26/22 Recorded SARS-CoV-2 [...] Refills, Soft Stop, 10/25/19 11:51:00 EDT, Shampoo, [facility]/pharmacy #[id number], 1 application Topically Daily, 113.6, kg, 01/22/19 15:29:00 EDT, Dry Weight Start Date: 10/25/19 Status: Ordered ketotifen 0.025% ophthalmic solution 1 drops, Eyes, Both, Every 8 hours, # 7.5 mL, 1 Refills, Maintenance, 08/25/22 15:57:00 EDT, [facility], [id number], Partial fill upon patient request [...] MOUTH AT BEDTIME NEEDED 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 AURABINDO AGRICULTURAL EQUIPMENT SALESPERSON, # 30 tablet, 5 Refills, Maintenance, 08/23/22 15:12:00 EDT, [id number], AURABIND[employer] AGRICULTURAL EQUIPMENT SALESPERSON ONLY PLEASE, 177.8, cm, 06/17/22 10:52:00 EST,... [...] Fibromyalgia Confirmed Active Tommy's thyroiditis Confirmed Active Insomnia Confirmed Active Lyme disease Confirmed Active Mast cell activation Confirmed Active Migraine Confirmed Active Migraines Confirmed Active Obese class I Confirmed Active Recurrent UTI Confirmed Active RUQ pain Confirmed Active Sacroiliac joint pain Confirmed Active Social History Social History Type Response Smoking Status Never (less than 100 in lifetime) entered on: 05/14/21 Sex Patient Care team information Care Team Personnel Name: Yaima Brizuela MD Position: [facility] Physician - Primary Care Member Role: PCP Address: Address: [address] [place] [address]- Care Team Related Persons Name: AISHA ESTEVES Address: home [address] [address] Name: CECE ESTEVES Name: CECE NUÑEZ Address: home [address] [place] [address]
--- OUTSIDE RECORDS SUMMARY | 2024-03-27 15:06 | XMS_ITS | Continuity of Care Document ---
Author Organization [facility] Address [address] [place] [address]- Care Team Providers Care College Service Officer Name Role Phone Yaima Brizuela MD Primary Care Physician [place] [facility] [place] 07/07/22 - 08/06/22 [facility] [address] [place], [place] [address] Allergies, Adverse Reactions, Alerts Substance Reaction Severity Status terazosin DIZZINESS Active Glutens Active Xolair anaphylaxis Active Immunizations Given and Recorded Vaccine Date Status Refusal Reason [id number] 12y+ bivalent booster vax 03/26/22 Recorded SARS-CoV-2 [...] 12:48:00 EST Start Date: 06/01/19 Status: Ordered June07/05 oral tablet 0 Refills, Maintenance, 07/16/21 10:45:00 EST, Partial fill upon patient request if the prescription is for a schedule II opioid drug. 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 Start Date: 03/05/22 Status: Ordered ZyrTEC 10 mg oral tablet [...] MD Position: [facility] Primary Care Physician Member Role: PCP Address: Address: [address] [place] [address]- Care Team Related Persons Name: AISHA ESTEVES Address: home [address] [address] Name: CECE ESTEVES Name: CECE NUÑEZ Address: home [address] [place] [address]
--- OUTSIDE RECORDS SUMMARY | 2024-03-27 15:06 | XMS_ITS | Continuity of Care Document ---
Author Organization [facility] Address [address] [place] [address]- Care Team Providers Care Book Shelver Name Role Phone Yaima Brizuela MD Primary Care Physician [place] [facility] [place] [facility] [place] 11/18/22 - 12/18/22 [facility] [address] [place] [address]- [place] Allergies, Adverse Reactions, Alerts Substance Reaction Severity Status terazosin DIZZINESS Active Glutens Active Xolair anaphylaxis Active Immunizations Given and Recorded Vaccine Date Status Refusal Reason [id number] 12y+ bivalent booster vax 03/26/22 Recorded SARS-CoV-2 [...] Refills, Maintenance, 11/10/22 15:49:00 EDT, Tablet, [id number], Partial fill upon patient request if the [...] Refills, Soft Stop, 10/25/19 11:51:00 EDT, Shampoo, [facility]/pharmacy #[id number], 1 application Topically Daily, 113.6, kg, 01/22/19 15:29:00 EDT, Dry Weight Start Date: 10/25/19 Status: Ordered ketotifen 0.025% ophthalmic solution 1 drops, Eyes, Both, Every 8 hours, # 7.5 mL, 1 Refills, Maintenance, 08/25/22 15:57:00 EDT, Solution, [facility]/pharmacy #[id number], Partial fill upon patient [...] MOUTH AT BEDTIME NEEDED 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 AURABINDO GIG TENDER, # 30 tablet, 5 Refills, Maintenance, 08/23/22 15:12:00 EDT, [id number], AURABINDO GIG TENDER ONLY PLEASE, 177.8, cm, 06/17/22 10:52:00 EST,... [...] Primary Care Member Role: PCP Address: Address: [address] [place] [address]- Care Team Related Persons Name: AISHA ESTEVES Address: home [address] [place] [address] Name: CECE ESTEVES Address: [place] [address] Name: CECE NUÑEZ Address: home [address] [place] [address]
--- OUTSIDE RECORDS SUMMARY | 2024-03-27 15:06 | XMS_ITS | Continuity of Care Document ---
Author Organization [facility] Address [address] [place] [address]- Care Team Providers Care Unit Clerk Name Role Phone Yaima Brizuela MD Primary Care Physician [phone] [place] [facility] [place] Date(s): 02/15/20 - 03/16/20 [facility] [address] [place] [address]- [facility] Allergies, Adverse Reactions, Alerts Substance Reaction Severity [...] Refills, Soft Stop, 10/25/19 11:51:00 EDT, Shampoo, [facility]/pharmacy #[id number], 1 application Topically Daily, 113.6, [...] 3 Refills, Maintenance, 10/10/19 11:17:00 EDT, Tablet, [facility]/pharmacy #[id number], 113.6, kg, 01/22/19 15:29:00 EDT, [...] 11/20/20 15:45:00 EDT, 11/21/19 15:42:00 EDT, [facility] # 302, 113.6, kg, 01/22/19 15:29:00 [...]
--- OUTSIDE RECORDS SUMMARY | 2024-03-27 15:06 | XMS_ITS | Continuity of Care Document ---
Author Organization [facility] Address [address] [place] [address]- Care Team Providers Care Sports Medicine Coordinator Name Role Phone Chata HUGHES, Yaima Reed Primary Care Physician [place] [facility] [place]18[place]21 - 06/17/21 [facility] [address] [place] [address]- Referring Physician: Karla Benito Allergies, Adverse Reactions, Alerts Substance Reaction Severity [...] 12:48:00 EST Start Date: 06/01/19 Status: Ordered 06/25 By Mouth, Daily, 0 Refills, Maintenance, [...] Refills, Soft Stop, 10/25/19 11:51:00 EDT, Shampoo, [facility]/pharmacy #[id number], 1 application Topically Daily, 113.6, kg, [...] 3 Refills, Maintenance, 12/09/20 11:35:00 EDT, Tablet, [facility]/pharmacy #[id number], 179, cm, 11/27/20 14:03:00 EDT, Height, [...] tablet, 5 Refills, Maintenance, 02/17/21 15:40:00 EDT, [facility] # 302, 179, cm, 02/12/21 11:02:00 [...]
--- OUTSIDE RECORDS SUMMARY | 2024-03-27 15:06 | XMS_ITS | Continuity of Care Document ---
Author Organization [facility] Address [address] [place] [address]- Care Team Providers Care Sandblaster Glass Name Role Phone Chata HUGHES, Yaima Reed Primary Care Physician [place] [facility] [place] 12/17/22 - 01/16/23 [facility] [address] [place] [address]- Allergies, Adverse Reactions, Alerts Substance Reaction Severity Status terazosin DIZZINESS Active Glutens Active Xolair anaphylaxis Active Immunizations Given and Recorded Vaccine Date Status Refusal Reason [id number] 12y+ bivalent booster vax 03/26/22 Recorded SARS-CoV-2 [...] 2 Refills, Maintenance, 11/10/22 15:49:00 EDT, Tablet, [facility]/pharmacy #[id number], Partial fill upon patient request if the [...] Refills, Soft Stop, 10/25/19 11:51:00 EDT, Shampoo, [facility]/pharmacy #0859, 1 application Topically Daily, 113.6, kg, 01/22/19 15:29:00 EDT, Dry Weight Start Date: 10/25/19 Status: Ordered ketotifen 0.025% ophthalmic solution 1 drops, Eyes, Both, Every 8 hours, # 7.5 mL, 1 Refills, Maintenance, 08/25/22 15:57:00 EDT, Solution, [facility]/pharmacy #[id number], Partial fill upon patient request if [...] MOUTH AT BEDTIME NEEDED 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 AURABINDO CLOTH HAULER, # 30 tablet, 5 Refills, Maintenance, 08/23/22 15:12:00 EDT, [id number], AURABINDO CLOTH HAULER ONLY PLEASE, 177.8, cm, 06/17/22 10:52:00 EST,... [...] Team Personnel Name: Yaima Brizuela MD Position: [facility] Physician - Primary Care Member Role: PCP Address: Address: [address] [place] [address]- Care Team Related Persons Name: AISHA ESTEVES Address: home [address] [address] Name: CECE ESTEVES Address: [place] [address] Name: CECE NUÑEZ Address: home [address] [place] [address]
--- OUTSIDE RECORDS SUMMARY | 2024-03-27 15:06 | XMS_ITS | Continuity of Care Document ---
Author Organization [facility] Address [address] [place] [address]- Care Team Providers Care Legal Paraprofessional Name Role Phone Yaima Brizuela MD Primary Care Physician [phone] [place] [facility] [place]23 [place] 02/20/23 [facility] [address] [place], [place] [address] Allergies, Adverse Reactions, Alerts Substance Reaction Severity Status terazosin DIZZINESS Active Glutens Active Xolair anaphylaxis Active Immunizations Given and Recorded Vaccine Date Status Refusal Reason [id number] 12y+ bivalent booster vax 03/26/22 Recorded SARS-CoV-2 (COVID-19) mRNA BNT-162b2 vac 1 06/25/21 Recorded SARS-CoV-2 (COVID-19) mRNA BNT-162b2 vac 01/03/21 Recorded SARS-CoV-2 (COVID-19) mRNA BNT-162b2 vac 12/13/20 Recorded 1Result Comment: 3rd dose Medications B 100 Complex By Mouth, Daily, 0 Refills, Maintenance, 10/24/19 15:36:00 EDT Start Date: 10/24/19 Status: Ordered candesartan 4 mg oral tablet See Instructions, take 1/2 tab daily, # 30 tablet, 2 Refills, Maintenance, 11/10/22 15:49:00 EDT, Tablet, [facility]/pharmacy #[id number], Partial fill upon patient request if the prescription is for a schedule II opioid drug., 178, cm, 11/09/22 21:34:00 EDT, [facility]... Start Date: 11/10/22 Status: Ordered Claritin 10 [...] 1 Refills, Maintenance, 08/25/22 15:57:00 EDT, Solution, [facility]/pharmacy #[id number], Partial fill upon patient [...] MOUTH AT BEDTIME NEEDED 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 AURABINDO ACTUARIAL INTERNSHIP, # 30 tablet, 5 Refills, Maintenance, 08/23/22 15:12:00 EDT, [id number], AURABINDO ACTUAR[employer] INTERNSHIP ONLY PLEASE, 177.8, cm, 06/17/22 10:52:00 EST,... [...] Team Personnel Name: Yaima Brizuela MD Position: [facility] Physician - Primary Care Member Role: PCP Address: Address: [address] [place] [address]- Care Team Related Persons Name: AISHA ESTEVES Address: home [address] [facility] [address] [place] [address] Name: CECE ESTEVES Address: [place] [address] Name: CECE NUÑEZ Address: home [address] [place] [address]
--- OUTSIDE RECORDS SUMMARY | 2024-03-27 15:06 | XMS_ITS | Continuity of Care Document ---
Author Organization [facility] Address [address] [place] [address]- Care Team Providers Care Sales Representative Health Insurance Name Role Phone Yaima Brizuela MD Primary Care Physician En[place] [facility] [place] Date(s): 10/06/20 - 11/05/20 [facility] [address] [place], [place] [address] Allergies, Adverse Reactions, Alerts Substance Reaction [...] 56 tablet, 0 Refills, Acute, 08/20/20 8:36:00EDT, [facility] STORE 45549, 179, cm, 07/18/20 14:54:00 EST, Height, 113.6, [...] 18:24:00 EDT, 10/22/20 18:24:00 EDT, ER Tablet, [facility]/pharmacy #[id number], Partial fill upon patient request if the prescription is for a schedule I... Start Date: 10/22/20 Stop Date: 11/11/20 Status: Ordered ipratropium nasal 21 mcg/inh spray 0 Refills, Maintenance, 06/01/19 12:48:00 EST Start Date: 06/01/19 Status: Ordered ketoconazole 2% topical shampoo 1 application, Topically, Daily, # 120 mL, 0 Refills, Soft Stop, 10/25/19 11:51:00 EDT, Shampoo, [facility]/pharmacy #0859, 1 application Topically Daily, 113.6, [...] 03/02/21 12:22:00 EDT, 05/06/20 12:22:00 EST, [facility] # 302, 1 tablet... [...] 3 Refills, Maintenance, 10/10/19 11:17:00 EDT, Tablet, [facility]/pharmacy #0859, 113.6, kg, 01/22/19 15:29:00 EDT, Dry Weight Start Date: 10/10/19 Status: Ordered rizatriptan 5 mg oral tablet 1 tablet = 5 mg, By Mouth, Daily, PRN for migraine headache, may repeat dose every 2 hours up to a maximum of 3, # 30 tablet, 5 Refills, Maintenance, 10/09/20 16:46:00 EDT, Tablet, [facility]/pharmacy #[id number], Partial fill upon patient request [...] 15:45:00 EDT, 11/21/19 15:42:00 EDT, [facility] # 302, 113.6, kg, 01/22/19 15:29:00 EDT, Dry Weight Start Date: 11/21/19 Stop Date: 11/20/20 Status: Ordered zolpidem 10 mg oral tablet See Instructions, TAKE ONE TABLET BY MOUTH AT BEDTIME NEEDED 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, # 30 tablet, 5 Refills, Maintenance, 07/25/20 12:12:00 EST, [facility] # 302, 179, cm, 07/18/20 14:54:00 EST, Height, 113.6, kg, 01/22/19 15:29:00 EDT, Dry Weight Start Date: 07/25/20 Status: Ordered zolpidem 10 mg oral tablet See Instructions, TAKE ONE TABLET BY MOUTH AT BEDTIME NEEDED 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, # 30 tablet, 5 Refills, Maintenance, 07/24/20 13:33:00 EST, [facility]/pharmacy #[id number], 179, cm, 07/18/20 14:54:00 EST, Height, [...]
--- OUTSIDE RECORDS SUMMARY | 2024-03-27 15:06 | XMS_ITS | Continuity of Care Document ---
Author Organization [facility] Address [address] [place] [address]- Care Team Providers Care Line Appliance Assembler Name Role Phone Chata HUGHES, Yaima Reed Primary Care Physician [phone] En[place] [facility] [place] Date(s): 12/18/19 - 01/17/20 [facility] [address] [place] [address]- [facility] Attending Physician: Jason Gonzalez Admitting Physician: Jason Gonzalez Referring Physician: AdmtrJason Allergies, Adverse Reactions, Alerts [...] Refills, Soft Stop, 10/25/19 11:51:00 EDT, Shampoo, [facility]/pharmacy #0859, 1 application Topically Daily, [...] 3 Refills, Maintenance, 10/10/19 11:17:00 EDT, Tablet, [facility]/pharmacy #0859, 113.6, kg, 01/22/19 15:29:00 EDT, [...] 11/20/20 15:45:00 EDT, 11/21/19 15:42:00 EDT, [facility] # 302, 113.6, kg, 01/22/19 15:29:00 EDT, Dry Weight Start Date: 11/21/19 Stop Date: 11/20/20 Status: Ordered zolpidem 10 mg oral tablet 1 tablet = 10 mg, By Mouth, Daily at bedtime, PRN insomnia, for 30 days, [employer], # 30 tablet, 3 Refills, Acute 01/22/20 14:56:00 EDT, 09/24/19 14:56:00 EDT, Tablet, Dry Weight Start Date: 09/24/19 Stop Date: 01/22/20 Status: Ordered ZyrTEC 10 mg oral tablet [...]
--- OUTSIDE RECORDS SUMMARY | 2024-03-27 15:06 | XMS_ITS | Continuity of Care Document ---
Author Organization [facility] Address [address] [place] [address]- Care Team Providers Care Assembly Line Supervisor Name Role Phone Yaima Brizuela MD Primary Care Physician [place] [facility] [place] 02[place]14/21 [facility] [address] [place], [place] [address] Allergies, Adverse Reactions, Alerts Substance Reaction [...] tablet, 0 Refills, Acute, 08/20/20 8:36:00EDT, [facility] 92489, 179, cm, 07/18/20 14:54:00 EST, Height, 113.6, [...] Soft Stop, 10/25/19 11:51:00 EDT, Shampoo, [facility]/pharmacy #[id number], 1 application Topically Daily, 113.6, kg, [...] Physician Stop 03/02/21 12:22:00 EDT, 05/06/20 12:22:00 [facility], [facility] # 302, 1 tablet... Start [...] 3 Refills, Maintenance, 12/09/20 11:35:00 EDT, Tablet, [facility]/pharmacy #0859, 179, cm, 11/27/20 14:03:00 EDT, Height, 121.1, kg, 10/22/20 14:46:00 EDT, Dry Weight Start Date: 12/09/20 Status: Ordered rizatriptan 5 mg oral tablet 1 tablet = 5 mg, By Mouth, Daily, PRN for migraine headache, may repeat dose every 2 hours up to a maximum of 3, # 30 tablet, 5 Refills, Maintenance, 10/09/20 16:46:00 EDT, Tablet, [facility]/pharmacy #[id number], Partial fill upon patient request if [...] tablet, 5 Refills, Maintenance, 07/25/20 12:12:00 EST, [facility] # 302, 179, cm, 07/18/20 [...]
--- OUTSIDE RECORDS SUMMARY | 2024-03-27 15:06 | XMS_ITS | Continuity of Care Document ---
Author Organization [facility] Address [address] [place] [address]- Care Team Providers Care Gang Head Saw Operator Name Role Phone Yaima Brizuela MD Primary Care Physician [phone] Encounter [facility] [place] Date(s): 05/29/20 - 06/28/20 [facility] [address] [place], [place] [address] Allergies, Adverse Reactions, Alerts Substance Reaction Severity Status Glutens Active Medications acetaminophen/butalbital/caffeine 325 mg-50 mg-40 mg [...] Refills, Soft Stop, 10/25/19 11:51:00 EDT, Shampoo, [facility]/pharmacy #[id number], 1 application Topically Daily, [...] Stop 03/02/21 12:22:00 EDT, 05/06/20 12:22:00 EST, [facility] # 302, 1 tablet... Start [...] 3 Refills, Maintenance, 10/10/19 11:17:00 EDT, Tablet, [facility]/pharmacy #[id number], 113.6, kg, 01/22/19 15:29:00 EDT, Dry Weight Start Date: 10/10/19 Status: Ordered SUMAtriptan 50 mg oral tablet 1 tablet = 50 mg, By Mouth, Daily, PRN for migraine headache, may repeat dose after 2 hours up to amaximum of 2, # 9 tablet, 1 Refills, Acute 06/29/20 14:53:00 EST, 05/29/20 14:53:00 EST, Tablet, [facility]/pharmacy #[id number], Partial fill upon patient request... Start Date: 05/29/20 Stop Date: 06/29/20 Status: Ordered Tessalon Perles = 100 mg, [...] Acute 11/20/20 15:45:00 EDT, 11/21/19 15:42:00 EDT, [facility] # 302, 113.6, kg, 01/22/19 15:29:00 EDT, Dry Weight Start Date: 11/21/19 Stop Date: 11/20/20 Status: Ordered zolpidem 10 mg oral tablet See Instructions, TAKE ONE TABLET BY MOUTH AT BEDTIME NEEDED 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, # 30 tablet, 3 Refills, Maintenance, 04/21/20 17:29:00 EST, [facility] # 302, 179, cm, 04/07/20 11:04:00 [...]
--- OUTSIDE RECORDS SUMMARY | 2024-03-27 15:06 | XMS_ITS | Continuity of Care Document ---
Author Organization [facility] Address [address] [place] [address]- Care Team Providers Care Clinical Aide Name Role Phone Yaima Brizuela MD Primary Care Physician [phone] Encounter [facility] [place] Date(s): 07/24/20 - 08/23/20 [facility] [address], [place] [address] Allergies, Adverse Reactions, Alerts Substance [...] 56 tablet, 0 Refills, Acute, 08/20/20 8:36:00EDT, [facility]ORE [facility]5650, 179, cm, 07/18/20 14:54:00 EST, Height, 113.6, [...] Stop 03/02/21 12:22:00 EDT, 05/06/20 12:22:00 EST, [facility] # [facility], 1 tablet... Start [...] 3 Refills, Maintenance, 10/10/19 11:17:00 EDT, Tablet, [facility]/pharmacy #[id number], 113.6, kg, 01/22/19 15:29:00 [...] Acute 11/20/20 15:45:00 EDT, 11/21/19 15:42:00 EDT, [facility] # 302, 113.6, kg, 01/22/19 15:29:00 EDT, Dry Weight Start Date: 11/21/19 Stop Date: 11/20/20 Status: Ordered zolpidem 10 mg oral tablet See Instructions, TAKE ONE TABLET BY MOUTH AT BEDTIME NEEDED 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, # 30 tablet, 5 Refills, Maintenance, 07/25/20 12:12:00 EST, [facility] # 302, 179, cm, 07/18/20 14:54:00 EST, Height, 113.6, kg, 01/22/19 15:29:00 EDT, Dry Weight Start Date: 07/25/20 Status: Ordered zolpidem 10 mg oral tablet See Instructions, TAKE ONE TABLET BY MOUTH AT BEDTIME NEEDED 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, # 30 tablet, 5 Refills, Maintenance, 07/24/20 13:33:00 EST, [facility]/pharmacy #[id number], 179, cm, 07/18/20 14:54:00 [...]
--- OUTSIDE RECORDS SUMMARY | 2024-03-27 15:06 | XMS_ITS | Continuity of Care Document ---
Author Organization [facility] Address [address] [place] [address]- Care Team Providers Care Tassel Clipper Name Role Phone Yaima Brizuela MD Primary Care Physician Encounter [facility] Date(s): 04/25/23 - 05/25/23 [facility] [address] [place], [place] [address] Allergies, Adverse Reactions, Alerts Substance Reaction Severity Status terazosin DIZZINESS Active Glutens Active Xolair anaphylaxis Active Immunizations Given and Recorded Vaccine Date Status Refusal Reason SARS-CoV-2(COVID-19)mRNA-LNP vac([id number]) 03/18/23 Recorded [id number] 12y+ bivalent booster vax 03/26/22 Recorded SARS-CoV-2 [...] Refills, Maintenance, 03/14/23 6:44:00 EDT, [id number], 178, cm, 01/24/23 15:44:00 EDT, Height, 109.5, [...] Soft Stop, 10/25/19 11:51:00 EDT, Shampoo, [facility]/pharmacy #[id number], 1 application Topically Daily, 113.6, kg, 01/22/19 15:29:00 EDT, Dry Weight Start Date: 10/25/19 Status: Ordered ketotifen 0.025% ophthalmic solution 1 drops, Eyes, Both, Every 8 hours, # 7.5 mL, 1 Refills, Maintenance, 08/25/22 15:57:00 EDT, Solution, [facility]/pharmacy #[id number], Partial fill upon patient request [...] MOUTH AT BEDTIME NEEDED 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 [employer]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
--- OUTSIDE RECORDS SUMMARY | 2024-03-27 15:06 | XMS_ITS | Continuity of Care Document ---
Author Organization [facility] Address [address] [place] [address]- Care Team Providers Care Bet Taker Name Role Phone Chata HUGHES, Yaima Reed Primary Care Physician Encounter [facility] [place] Date(s): 06/10/23 - 07/10/23 [facility] [address] [place] [address] Attending Physician: Jason [place] Admitting Physician: Jason [place] Referring Physician: AdmJason thayer Allergies, Adverse Reactions, Alerts Substance Reaction Severity Status terazosin DIZZINESS Active Glutens Active Xolair anaphylaxis Active Immunizations Given and Recorded Vaccine Date Status Refusal Reason SARS-CoV-2(COVID-19)mRNA-LNP vac([id number]) 03/18/23 Recorded [id number] 12y+ bivalent booster vax 03/26/22 Recorded SARS-CoV-2 (COVID-19) mRNA BNT-162b2 vac 1 06/25/21 Recorded SARS-CoV-2 (COVID-19) mRNA BNT-162b2 vac 01/03/21 Recorded SARS-CoV-2 (COVID-19) mRNA BNT-162b2 vac 12/13/20 Recorded 1Result Comment: 3rd dose Medications candesartan 4 mg oral tablet 1/2 TO 1 TABLET, By Mouth, Daily, # 90 tablet, 1 Refills, Maintenance, 03/14/23 6:44:00 EDT, [facility], 178, cm, 01/24/23 15:44:00 EDT, Height, 109.5, [...] opioid drug. Start Date: 06/10/23 Status: Ordered Fish Oil By Mouth, 0 [...] 1 Refills, Maintenance, 08/25/22 15:57:00 EDT, Solution, [facility]/pharmacy #[id number], Partial fill upon patient request if the prescription is for a schedule II opioid drug., 1 drops Eyes, Both Every 8 hours, 177.8... Start Date: 08/25/22 Status: Ordered liothyronine 25 mcg oral tablet See Instructions, TAKES 4 TABS BY Mouth Daily, 0 Refills, Maintenance, 03/05/19 15:16:09 EDT, Tablet Start Date: 03/05/19 Status: Ordered methenamine hippurate 1 gm oral [...] Gm, 5 Refills, Maintenance, 02/07/23 16:36:00 EDT, [facility]/pharmacy#[id number], Partial fill upon patient request if the prescription is for a schedule II opioid drug., 178, cm, 01/24/23 15:44:00 EDT, Height, 109.5, kg, 06/0... Start Date: 02/07/23 Status: Ordered zolpidem 10 mg oral tablet See Instructions, TAKE 1 TABLET BY MOUTH AT BEDTIME NEEDED 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 [employer], # 30 tablet, 5 Refills, Maintenance, 02/22/23 13:51:00 EDT, [facility]/pharmacy #[id number], [employer] ONLY PLEASE, 178, cm, 01/24/23 15:44:00 EDT, [...] 100 in lifetime) entered on: 05/14/21 Sex Laboratory * Event Display: Non Lab Results Authored Date: Patient Care team information Care Team Personnel Name: Yaima Brizuela MD Position: [facility] Physician - Primary Care Member Role: PCP Address: Address: [address] [place] [address]- [place] Care Team Related Persons Name: AISHA ESTEVES Address: home [address] [facility] [address] [place] [address] Name: CECE ESTEVES Address: [place] [address] Name: CECE NUÑEZ Address: home [address] [place] [address]
--- OUTSIDE RECORDS SUMMARY | 2024-03-27 15:06 | XMS_ITS | Continuity of Care Document ---
Author Organization [facility][1] Adult [facility] Address [address] [place] [address]- Care Team Providers Care Mica Washer Gluer Name Role Phone Yaima Brizuela MD Primary Care Physician [phone] Encounter [facility] [place] Date(s): 11/30/22 - 12/30/22 [facility]1] Adult and [facility] [address] [place], [place] [address] Allergies, Adverse Reactions, Alerts Substance Reaction Severity Status terazosin DIZZINESS Active Glutens Active Xolair anaphylaxis Active Immunizations Given and Recorded Vaccine Date Status Refusal Reason [id number] 12y+ bivalent booster vax 03/26/22 Recorded SARS-CoV-2 [...] Refills, Maintenance, 11/10/22 15:49:00 EDT, Tablet, [id number], Partial fill upon patient request if the [...] Refills, Soft Stop, 10/25/19 11:51:00 EDT, Shampoo, [facility]/pharmacy #[id number], 1 application Topically Daily, 113.6, kg, 01/22/19 15:29:00 EDT, Dry Weight Start Date: 10/25/19 Status: Ordered ketotifen 0.025% ophthalmic solution 1 drops, Eyes, Both, Every 8 hours, # 7.5 mL, 1 Refills, Maintenance, 08/25/22 15:57:00 EDT, Solution, [facility]/pharmacy #[id number], Partial fill [...] MOUTH AT BEDTIME NEEDED 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 AURABINDO FLORAL ARRANGER, # 30 tablet, 5 Refills, Maintenance, 08/23/22 15:12:00 EDT, [id number], AURABINDO FLORAL ARRANGER ONLY PLEASE, 177.8, cm, 06/17/22 10:52:00 EST,... [...] Team Personnel Name: Yaima Brizuela MD Position: [facility] Physician - Primary Care Member Role: PCP Address: [facility] [place] [address]- Care Team Related Persons Name: AISHA ESTEVES Address: home [address] [address] Name: CECE ESTEVES Address: [place] [address] Name: CECE NUÑEZ Address: home [address] [place] [address]
--- OUTSIDE RECORDS SUMMARY | 2024-03-27 15:06 | XMS_ITS | Continuity of Care Document ---
Author Organization [facility] Address [address] [place] [address]- Care Team Providers Care Podiatrist Assistant Name Role Phone Yaima Brizuela MD Primary Care Physician Encounter [facility] Date(s): 10/09/20 - 11/08/20 [facility] [address] [place], [place] [address] Allergies, Adverse Reactions, Alerts Substance Reaction [...] 56 tablet, 0 Refills, Acute, 08/20/20 8:36:00EDT, [facility] STORE [id number], 179, cm, 07/18/20 14:54:00 EST, Height, 113.6, [...] 18:24:00 EDT, 10/22/20 18:24:00 EDT, ER Tablet, [facility]/pharmacy #[id number], Partial fill upon patient request if the prescription is for a schedule I... Start Date: 10/22/20 Stop Date: 11/11/20 Status: Ordered hydrocortisone/neomycin/polymyxin B otic 1%-0.35%-45330 u/ml solution 2 drops, Ear, Right, 2 times a day, for 7 days, # 10 mL, 0 Refills, Acute 11/13/20 11:49:00 EDT, 11/06/20 11:49:00 EDT, Otic Solution, [facility]/pharmacy #[id number], Partial fill upon patient request if the prescription is for a schedule II opioid drug., 2 drops... Start Date: 11/06/20 Stop Date: 11/13/20 Status: Ordered ipratropium nasal 21 mcg/inh spray 0 Refills, Maintenance, 06/01/19 12:48:00 EST Start Date: 06/01/19 Status: Ordered ketoconazole 2% topical shampoo 1 application, Topically, Daily, # 120 mL, 0 Refills, Soft Stop, 10/25/19 11:51:00 EDT, Shampoo, [facility]/pharmacy #[id number], 1 application Topically Daily, 113.6, [...] Stop 03/02/21 12:22:00 EDT, 05/06/20 12:22:00 EST, [facility] # 302, 1 tablet... [...] 3 Refills, Maintenance, 10/10/19 11:17:00 EDT, Tablet, [facility]/pharmacy #[id number], 113.6, kg, 01/22/19 15:29:00 EDT, Dry Weight Start Date: 10/10/19 Status: Ordered rizatriptan 5 mg oral tablet 1 tablet = 5 mg, By Mouth, Daily, PRN for migraine headache, may repeat dose every 2 hours up to a maximum of 3, # 30 tablet, 5 Refills, Maintenance, 10/09/20 16:46:00 EDT, Tablet, [facility]/pharmacy #[id number], Partial fill upon patient request [...] Acute 11/20/20 15:45:00 EDT, 11/21/19 15:42:00 EDT, [facility] # 302, 113.6, kg, 01/22/19 15:29:00 EDT, Dry Weight Start Date: 11/21/19 Stop Date: 11/20/20 Status: Ordered zolpidem 10 mg oral tablet See Instructions, TAKE ONE TABLET BY MOUTH AT BEDTIME NEEDED 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, # 30 tablet, 5 Refills, Maintenance, 07/25/20 12:12:00 EST, [facility] # 302, 179, cm, 07/18/20 14:54:00 EST, Height, 113.6, kg, 01/22/19 15:29:00 EDT, Dry Weight Start Date: 07/25/20 Status: Ordered zolpidem 10 mg oral tablet See Instructions, TAKE ONE TABLET BY MOUTH AT BEDTIME NEEDED 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, # 30 tablet, 5 Refills, Maintenance, 07/24/20 13:33:00 EST, [facility]/pharmacy #[id number], 179, cm, 07/18/20 14:54:00 EST, [...]
--- OUTSIDE RECORDS SUMMARY | 2024-03-27 15:06 | XMS_ITS | Continuity of Care Document ---
Author Organization [facility] Address [address] [place] [address]- Care Team Providers Care Maintenance And Operations Supervisor Name Role Phone Chata HUGHES, Yaima Reed Primary Care Physician Encounter [facility] [place] Date(s): 08/20/20 - 09/19/20 [facility] [address] [place], [place] [address] Allergies, Adverse Reactions, Alerts [...] 8:36:00EDT, [facility] ST[facility]29, 179, cm, 07/18/20 14:54:00 EST, Height, 113.6, [...] Stop 03/02/21 12:22:00 EDT, 05/06/20 12:22:00 EST, [facility] # 302, 1 tablet... [...] 3 Refills, Maintenance, 10/10/19 11:17:00 EDT, Tablet, [facility]/pharmacy #[id number], 113.6, kg, 01/22/19 15:29:00 EDT, [...] Acute 11/20/20 15:45:00 EDT, 11/21/19 15:42:00 EDT, [facility] # 302, 113.6, kg, 01/22/19 15:29:00 EDT, Dry Weight Start Date: 11/21/19 Stop Date: 11/20/20 Status: Ordered zolpidem 10 mg oral tablet See Instructions, TAKE ONE TABLET BY MOUTH AT BEDTIME NEEDED 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, # 30 tablet, 5 Refills, Maintenance, 07/25/20 12:12:00 EST, [facility] # 302, 179, cm, 07/18/20 14:54:00 EST, Height, 113.6, kg, 01/22/19 15:29:00 EDT, Dry Weight Start Date: 07/25/20 Status: Ordered zolpidem 10 mg oral tablet See Instructions, TAKE ONE TABLET BY MOUTH AT BEDTIME NEEDED 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, # 30 tablet, 5 Refills, Maintenance, 07/24/20 13:33:00 EST, [facility]/pharmacy #[id number], 179, cm, 07/18/20 14:54:00 EST, [...]
--- OUTSIDE RECORDS SUMMARY | 2024-03-27 15:06 | XMS_ITS | Continuity of Care Document ---
Author Organization [facility] Address [address] [place] [address]- Care Team Providers Care Microbiology Soil Scientist Name Role Phone Chata HUGHES, Yaima Reed Primary Care Physician Encounter [facility] Date(s): 12/18/21 - 01/17/22 [facility] [address] [place] [address]- Allergies, Adverse Reactions, Alerts Substance Reaction Severity [...] Daily, 25 mg daily, Refills 0, Maintenance, 11/16/21 11:00:00 EST, Partial fill upon patient request [...] Refills, Soft Stop, 10/25/19 11:51:00 EDT, Shampoo, [facility]/pharmacy #[id number], 1 application Topically Daily, 113.6, kg, [...] opioid drug. Start Date: 12/03/21 Status: Ordered Probiotic Formula 1 capsule, By Mouth, Daily, 0 Refills, Maintenance, 01/22/19 19:02:57 EDT Start Date: 01/22/19 Status: Ordered Qulipta 30 mg oral tablet 30 each, TAKE 1 TABLET BY MOUTH ONCE A DAY FOR MIGRAINE PREVENTION, 0 Refills, 11/20/21 14:08:00 EDT, Partial fill upon patient request if the prescription is for a schedule II opioid drug. Start Date: 11/20/21 Status: Ordered Tessalon Perles = 100 mg, [...] MOUTH AT BEDTIME NEEDED 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 A[employer] CEL[employer] WRAPPER, # 30 tablet, 5 Refills, Maintenance, 11/25/21 16:15:00 EDT, [id number], AUR[employer] CELERY WRAPPER ONLY PLEASE, 177.8, cm, 11/20/21 14:05... Start Date: 11/25/21 Status: Ordered ZyrTEC 10 mg oral tablet [...]
--- OUTSIDE RECORDS SUMMARY | 2024-03-27 15:06 | XMS_ITS | Continuity of Care Document ---
Author Organization [facility] Address [address] [place] [address]- Care Team Providers Care Research Director Name Role Phone Yaima Brizuela MD Primary Care Physician Encounter [facility] Date(s): 01/20/23 - 01/27/23 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 Start Date: 11/10/22 Status: Ordered Claritin 10 [...] Refills, Soft Stop, 10/25/19 11:51:00 EDT, Shampoo, [facility]/pharmacy #[id number], 1 application Topically Daily, 113.6, kg, [...] MOUTH AT BEDTIME NEEDED 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 AURABINDO MARBLE HELPER, # 30 tablet, 5 Refills, Maintenance, 08/23/22 15:12:00 EDT, [facility]/pharmacy #[id number], AURABINDO MARBLE HELPER ONLY PLEASE, 177.8, cm, 06/17/22 10:52:00 EST,... 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 Mast cell activation Discharge Diagnosis 01/20/23 Vital Signs Most recent to oldest [Reference Range]: 1 2 Height 178 cm (01/20/23 11:06 AM) 178 cm (01/20/23 10:54 AM) Weight 111.2 kg (01/20/23 10:54 AM) Oxygen Saturation [94-100 %] 97 % (01/20/23 10:54 AM) Pulse Rate [55-90 bpm] 89 bpm (01/20/23 10:54 AM) Body Mass Index [18.5-24.99 kg/m2] 35.1 kg/m2 *>HHI* (01/20/23 10:54 AM) Blood Pressure [90-138/55-84 mm Hg] 96/5 8mm Hg (01/20/23 11:06 AM) 97/64mm Hg (01/20/23 10:54 AM) Temperature [96.8-100.4 DegF] 98.3 DegF (01/20/23 10:54 AM) Mode of Delivery (Oxygen) Room air (01/20/23 10:54 AM) Blood pressure sites Arm, left (01/20/23 11:06 AM) Arm, left (01/20/23 10:54 AM) Temperature Route Temporal (01/20/23 10:54 AM) Weight Obtained Via Standing scale (01/20/23 10:54 AM) Social History Social History Type Response Smoking Status Never (less than 100 in lifetime) entered on: 05/14/21 Sex Note * Alyson Mcmahan: PERFORM, SIGN, VERIFY Event Display: Patient Education/Instruction Authored Date: [id number] [facility] *No Edge Adult Ped Clinical Summary Name NITA ESTEVES Age 37 Years 1985 PCP Yaima Brizuela MD PCP Visit Date 01/20/2023 10:50:00 Additional Instructions: Scheduled Appointments?? Future Appointments ?*[facility] [address] ?[place],??[place],??[address] ?Phone:??--?Fax:??-- ?Appt. Date:??01/24/2023?3:40 PM ?Scheduled Provider:??Pamela HUGHES, Jay Jay Carrington ?*[facility] [address],??[place],??[address] ?Phone:??--?Fax:??-- ?Appt. Date:??06/13/2023?9:15 AM ?Scheduled Provider:??HEATHER Hendrickson Jodi M Follow-Up Instructions ?? Diagnosis Medications: Please continue your medications until treatment is completed or stopped by your provider. Discuss any questions related to medications with your provider. Medications to Continue Taking That Have Changed These medications were not printed or sent to your pharmacy - atogepant (Qulipta 30 mg oral tablet) 1 tab(s). Next Dose: - Candesartan (candesartan 4 mg oral tablet) take 1/2 tab daily. Refills: 2. Next Dose: Medications to Continue with No Changes These medications were not printed or sent to your pharmacy Ascorbic Acid (Vitamin C 1000 mg oral tablet) 1 tab(s) Oral twice a day. Next Dose: Benzonatate (Tessalon Perles) 100 Milligram Oral 3 times a day. Next Dose: bifidobacterium-lactobacillus (Probiotic Formula) 1 capsule Oral Daily. Next Dose: Cetirizine (ZyrTEC 10 mg oral tablet) 2 tab(s) Oral Daily. Next Dose: Cholecalciferol (Vitamin D3 10,000 intl units oral capsule) 1 capsule Oral every week. Next Dose: Cyanocobalamin (Vitamin B12) 5,000 Microgram. Next Dose: Dapsone Topical (dapsone 5% topical gel) Next Dose: Ethinyl Estradiol / Norethindrone (Junel 07/05 oral tablet) Next Dose: Fluconazole (fluconazole 150 mg oral tablet) 1 tab(s) Oral Daily. Next Dose: fluticasone/umeclidinium/vilanterol (Trelegy Ellipta 200 mcg-62.5 mcg-25 mcg/inh inhalation powder)1 puff(s) Inhalation Daily. at the same time every day. Next Dose: Folic Acid 100 Microgram Daily. Next Dose: HydrOXYzine (hydrOXYzine hydrochloride 25 mg oral tablet) 1 capsule Oral Daily at Bedtime as neededfor itching for 10 Days. Next Dose: Ipratropium Nasal (ipratropium nasal 21 mcg/inh spray) Next Dose: Ketoconazole (ketoconazole 2% topical shampoo) 1 marge Topically Daily. Refills: 0. Next Dose: Ketotifen Ophthalmic (ketotifen 0.025% ophthalmic solution) 1 Drops Both eyes every 8 hours. Refills: 1. Next Dose: Liothyronine (liothyronine 25 mcg oral tablet) TAKES 4 TABS BY Mouth Daily. Next Dose: Loratadine (Claritin 10 mg oral tablet) 2 tab(s) Oral Daily. Next Dose: Melatonin (melatonin 3 mg oral tablet) 1 tab(s) Oral Daily at Bedtime. Next Dose: Methenamine (methenamine hippurate 1 gm oral tablet) 1 tab(s) Oral Daily in the morning. Next Dose: Miscellaneous Rx (D MANNOSE 1 GRAM) Next Dose: Multivitamin (B 100 Complex) Oral Daily. Next Dose: Ondansetron (ondansetron 4 mg oral tablet, disintegrating) DISSOLVE 1 TABLET IN MOUTH EVERY 8 HOURSAS NEEDED FOR NAUSEA AND VOMITING (INS ONLY COVERS 1 DAILY). Next Dose: Phytonadione (Vitamin K1) 100mcg daily. Next Dose: Zolpidem (zolpidem 10 mg oral tablet) TAKE 1 TABLET BY MOUTH AT BEDTIME NEEDED 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 AURABINDO MARBLE HELPER. Refills: 5. Next Dose: Allergy Info:?? Xolair; Glutens; terazosin Medications Given This Visit Future Orders ?Free T4? Order Date:01/20/23?- Complete on or after?01/20/23 ?TSH? Order Date:01/20/23?- Complete on or after?01/20/23 ?T3 Total? Order Date:01/20/23?- Complete on or after?01/20/23 ?T3 Free? Order Date:01/20/23?- Complete on or after?01/20/23 Vital Signs Height 178 cm Weight 111.2 kg BMI 35.1 kg/m2 Blood Pressure 96 mm Hg/58 mm Hg Temperature 98.3 DegF Pulse Rate 89 bpm Respiratory Rate 02 Sat Mode of Delivery 97 %/Room air You can now view a summary of your hospital visit from the comfort of your home through a free online portal called [employer]. [employer] is a website that allows you to securely view your medical information including discharge summary, medications and follow-up visits. ??You can alsosend a secure electronic message to your doctor???s office to request appointments, renew medications or just ask a question. You can enroll at [email or web address] or register during your next office visit. Disclaimer:?? The information provided is of a general nature and is intended to be used in conjunction with the recommendations and advice of your health care practitioner. ??Every effort has been made to ensure that the information provided is accurate and complete at the time it is provided to you however, as your needs change, or, as new ??information becomes available, different or additional instructions may be required. If you have questions, please consult with your primary care provider or pharmacist, as appropriate. ??This information is not intended to serve as substitution for assessment and evaluation by a qualified health care provider. If you do not have a primary care provider, you may find a [facility] provider by calling [facility] [employer] [facility] at [phone]. For information about the plan of care including goals and instructions for your diagnosis, please see the patient education orders section of this document. Patient Education Materials?? The content of this educational material or handout may have been modified, supplemented, or adapted from its original content and format to support your individualized medical care. Patient Care team information Care Team Personnel Name: Yaima Brizuela MD Position: [facility] Physician - Primary Care Member Role: PCP Address: Address: [address] [place] [address]- Care Team Related Persons Name: AISHA ESTEVES Address: home [address] [facility] [address] [place] [address] Name: CECE ESTEVES Address: [place] [address] Name: CECE NUÑEZ Address: home [address] [place] [address]
--- OUTSIDE RECORDS SUMMARY | 2024-03-27 15:07 | XMS_ITS | Continuity of Care Document ---
Author Organization [facility] Address [address] [place] [address]- Care Team Providers Care Psychology Tech Name Role Phone Chata HUGHES, Yaima Reed Primary Care Physician [phone] [place] [facility] [id number] Date(s): 12/08/22 - 01/07/23 [facility] [address] [place] [address]- Allergies, Adverse Reactions, Alerts Substance Reaction Severity Status terazosin DIZZINESS Active Glutens Active Xolair anaphylaxis Active Immunizations Given and Recorded Vaccine Date Status Refusal Reason [id number] 12y+ bivalent booster vax 03/26/22 Recorded SARS-CoV-2 [...] 2 Refills, Maintenance, 11/10/22 15:49:00 EDT, Tablet, [facility]/pharmacy #[id number], Partial fill upon patient request if the [...] MOUTH AT BEDTIME NEEDED 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 AURABINDO CONTRACT 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 [...] Primary Care Member Role: PCP Address: Address: [address] [place] [address]- Care Team Related Persons Name: AISHA ESTEVES Address: home [address] [address] Name: CECE ESTEVES Address: [place] [address] Name: CECE NUÑEZ Address: home [address] [place] [address]
--- OUTSIDE RECORDS SUMMARY | 2024-03-27 15:07 | XMS_ITS | Continuity of Care Document ---
Author Organization [facility] Address [address] [place] [address]- Care Team Providers Care Clinical Orthoptist Name Role Phone Yaima Brizuela MD Primary Care Physician [phone] [place] [facility] [place] 11/20/22 [facility] [address] [place], [place] [address] Allergies, Adverse Reactions, Alerts Substance Reaction Severity Status terazosin DIZZINESS Active Glutens Active Xolair anaphylaxis Active Immunizations Given and Recorded Vaccine Date Status Refusal Reason [id number] 12y+ bivalent booster vax 03/26/22 Recorded SARS-CoV-2 [...] Refills, Maintenance, 11/10/22 15:49:00 EDT, Tablet, [id number], Partial fill upon patient request if the [...] Soft Stop, 10/25/19 11:51:00 EDT, Shampoo, [facility]/pharmacy #[id number], 1 application Topically Daily, 113.6, kg, 01/22/19 15:29:00 EDT, Dry Weight Start Date: 10/25/19 Status: Ordered ketotifen 0.025% ophthalmic solution 1 drops, Eyes, Both, Every 8 hours, # 7.5 mL, 1 Refills, Maintenance, 08/25/22 15:57:00 EDT, Solution, [facility]/pharmacy #[id number], Partial fill upon patient request if [...] MOUTH AT BEDTIME NEEDED 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 AURABINDO ASSOCIATE FACULTY, # 30 tablet, 5 Refills, Maintenance, 08/23/22 15:12:00 EDT, [id number], AURABINDO ASSOCIATE FACULTY ONLY PLEASE, 177.8, cm, 06/17/22 10:52:00 EST,... [...] Team Personnel Name: Yaima Brizuela MD Position: [facility] Physician - Primary Care Member Role: PCP Address: Address: [facility] [place] [address]- Care Team Related Persons Name: AISHA ESTEVES Address: home [address] [address] Name: CECE ESTEVES Address: [place] [address] Name: CECE NUÑEZ Address: home [address] [place] [address]
--- OUTSIDE RECORDS SUMMARY | 2024-03-27 15:07 | XMS_ITS | Continuity of Care Document ---
Author Organization [facility] Address [address] [place] [address]- Care Team Providers Care Product Support Analyst Name Role Phone Chata HUGHES, Yaima Reed Primary Care Physician [place] [facility] [place] Date(s): 02/15/24 - 03/16/24 [facility] [address] [place] [address]- Allergies, Adverse Reactions, Alerts Substance Reaction Severity Status terazosin DIZZINESS Active Glutens Active Xolair anaphylaxis Active Immunizations Given and Recorded Vaccine Date Status Refusal Reason SARS-CoV-2(COVID-19)mRNA-LNP vac([id number]) 03/18/23 Recorded [id number] 12y+ bivalent booster vax 03/26/22 Recorded SARS-CoV-2 (COVID-19) mRNA BNT-162b2 vac 1 06/25/21 Recorded SARS-CoV-2 (COVID-19) mRNA BNT-162b2 vac 01/03/21 Recorded SARS-CoV-2 (COVID-19) mRNA BNT-162b2 vac 12/13/20 Recorded 1Result Comment: 3rd dose Medications atogepant 10 mg oral tablet 1 tablet = 10 mg, By Mouth, Daily, use lower dose of 10 mg daily instead of 30 mg when taking antifungal med with interaction, # 90 tablet, 0 Refills, Maintenance, 03/12/24 9:19:00 EDT, Tablet, [id number], Partial fill upon patient request if... Start Date: 03/12/24 Status: Ordered benzonatate 200 mg oral capsule 1 capsule = 200 mg, By Mouth, 3 times a day, PRN as needed for cough, for 7 days, # 21 capsule, 0 Refills, Acute 03/24/24 15:47:00 EDT, 03/17/24 15:47:00 EDT, Capsule, [id number], Partial fill upon patient request if the prescription is for a... Start Date: 03/17/24 Stop Date: 03/24/24 Status: Ordered benzonatate 200 mg oral capsule 1 capsule = 200 mg, By Mouth, 3 times a day, PRN as needed for cough, for 14 days, # 42 capsule, 3 Refills, Acute 05/19/24 15:47:00 EST, 03/24/24 15:47:00 EDT, Capsule, [id number], new rx please fill, 178, cm, 03/10/24 15:24:00 EDT, Height, 11... Start Date: 03/24/24 Stop Date: 05/19/24 Status: Ordered benzonatate 200 mg oral capsule 1 capsule = 200 mg, By Mouth, 3 times a day, PRN as needed for cough, for 7 days, # 21 capsule, 0 Refills, Acute 03/17/24 15:47:00 EDT, 03/10/24 15:47:00 EDT, Capsule, [id number], Partial fill upon patient request if the prescription is for a... Start Date: 03/10/24 Stop Date: 03/17/24 Status: Ordered candesartan 4 mg oral tablet [...] EST, Supply Start Date: 07/26/23 Status: Ordered Econazole Nitrate 1% topical cream PLEASE SEE ATTACHED FOR DETAILED DIRECTIONS Start Date: 03/08/24 Status: Ordered Fish Oil By Mouth, 0 [...] 1 Refills, Maintenance, 08/25/22 15:57:00 EDT, Solution, [facility]/pharmacy #[id number], Partial fill upon patient request if the prescription is for a schedule II opioid drug., 1 drops Eyes, Both Every 8 hours, 177.8... Start Date: 08/25/22 Status: Ordered liothyronine 25 mcg oral tablet See Instructions, TAKES 4 TABS BY Mouth Daily, 0 Refills, Maintenance, 03/05/19 15:16:09 EDT, Tablet Start Date: 03/05/19 Status: Ordered nystatin 643799 u/ml oral suspension 5 mL = 500,000 units, By Mouth, 4 times a day, for 7 days, swish and swallow, # 140 mL, 0 Refills, Acute 03/19/24 15:32:00 EDT, 03/12/24 15:32:00 EDT, Suspension, [facility]/pharmacy #[id number], Partial fill upon patient request if the prescription is for a sched... Start Date: 03/12/24 Stop Date: 03/19/24 Status: Ordered ondansetron 4 mg oral tablet, [...] 3 Refills, Maintenance, 08/03/23 13:17:00 EST, Tablet, [facility]/pharmacy #[id number], Partial fill upon patient request [...] Refills, Maintenance, 11/28/23 8:27:00 EDT, [facility], 178, cm, 11/17/23 10:55:00 EDT, Height, 113, kg, 11/17/23 10:55:00 EDT,Dry Weight Start Date: 11/28/23 Status: Ordered zinc sulfate 66 mg oral tablet 1 tablet = 66 mg, By Mouth, 3 times a day, # 42 tablet, 5 Refills, Maintenance, 03/14/24 16:16:00 EDT, Tablet, [facility]/pharmacy #[id number], Partial fill upon patient request if the prescription is for a schedule II opioid drug., 178, cm, 03/10/24 15:24:00 EDT,... 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 Start Date: 02/07/24 Status: Ordered ZyrTEC 10 mg oral tablet 2 tablet = 20 mg, By Mouth, Daily, # 30 tablet, 0 Refills, Maintenance, 01/22/19 19:00:54 EDT, Tablet Start Date: 01/22/19 Status: Ordered Problem List Condition Confirmation Course Effective Dates Status H ealth Status Informant Abdominal discomfort Confirmed Active Acne Confirmed Active Acute sinusitis Confirmed Active Allergic rhinitis Confirmed Active Carpal tunnel syndrome, bilateral Confirmed Active Chronic headache Confirmed Active Amos-Danlos syndrome Confirmed Active Endometriosis Confirmed Active Fibromyalgia Confirmed Active Tommy's thyroiditis Confirmed Active Intractable headache Confirmed Active Insomnia Confirmed Active Lyme disease Confirmed Active Mast cell activation Confirmed Active Memory change Confirmed Active Migraine Confirmed Active Migraines Confirmed Active Myofascial pain syndrome Confirmed Active Obese class II Confirmed Active Pharyngitis Confirmed Active Recurrent UTI Confirmed Active RUQ pain Confirmed Active Sacroiliac joint pain Confirmed Active Vertigo Confirmed Active Social History Social History Type Response Smoking Status Never (less than 100 in lifetime) entered on: 05/14/21 Sex Patient Care team information Care Team Personnel Name: Yaima Brizuela MD Position: [facility] Physician - Primary Care Member Role: PCP Address: Address: [address] [place] [address]- Care Team Related Persons Name: AISHA ESTEVES Address: home [address] [facility] [address] [place] [address] Name: CECE ESTEVES Address: [place] [address] Name: CECE NUÑEZ Address: home [address] [place] [address]
--- OUTSIDE RECORDS SUMMARY | 2024-03-27 15:07 | XMS_ITS | Continuity of Care Document ---
Author Organization [facility] Address [address] [place] [address]- Care Team Providers Care Jacquard Loom Fixer Name Role Phone Yaima Brizuela MD Primary Care Physician [phone] [place] [facility] [place] 10/23/21 - 11/22/21 [facility] [address] [place], [place] [address] Allergies, Adverse Reactions, Alerts Substance [...] Soft Stop, 10/25/19 11:51:00 EDT, Shampoo, [facility]/pharmacy #[id number], 1 application Topically Daily, [...] Refills, Maintenance, 12/09/20 11:35:00 EDT, Tablet, [facility]/pharmacy #[id number], 179, cm, 11/27/20 14:03:00 EDT, Height, [...] NEEDED 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, # 30 tablet, 5 Refills,Maintenance, 08/06/21 14:06:00 EST, [facility] # 302, 177.8, cm, 08/06/21 11:00:00 EST, Height, 116.3, kg, 07/13/21 12:56:00 EST, Dry Weight Start Date: 08/06/21 Status: Ordered zolpidem 10 mg oral tablet See Instructions, TAKE ONE TABLET BY MOUTH AT BEDTIME NEEDED 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, # 30 tablet, 5 Refills, Maintenance, 02/17/21 15:40:00 EDT, [facility] # [facility], 179, cm, 02/12/21 11:02:00 [...]
--- OUTSIDE RECORDS SUMMARY | 2024-03-27 15:07 | XMS_ITS | Continuity of Care Document ---
Author Organization [facility] Address [address] [place] [address]- Care Team Providers Care Short Filler Bunch Machine Operator Name Role Phone Chata HUGHES, Yaima Reed Primary Care Physician [place] [facility] [place] 10/03/20 - 11/02/20 [facility] [address] [place], [place] [address] Allergies, Adverse Reactions, Alerts Substance Reaction [...] 56 tablet, 0 Refills, Acute, 08/20/20 8:36:00EDT, [facility], 179, cm, 07/18/20 14:54:00 EST, Height, 113.6, [...] 18:24:00 EDT, 10/22/20 18:24:00 EDT, ER Tablet, [facility]/pharmacy #[id number], Partial fill upon patient request if the prescription is for a schedule I... Start Date: 10/22/20 Stop Date: 11/11/20 Status: Ordered ipratropium nasal 21 mcg/inh spray 0 Refills, Maintenance, 06/01/19 12:48:00 EST Start Date: 06/01/19 Status: Ordered ketoconazole 2% topical shampoo 1 application, Topically, Daily, # 120 mL, 0 Refills, Soft Stop, 10/25/19 11:51:00 EDT, Shampoo, [facility]/pharmacy #0859, 1 application Topically Daily, 113.6, kg, [...] Stop 03/02/21 12:22:00 EDT, 05/06/20 12:22:00 EST, [facility] # 302, 1 tablet... Start [...] 3 Refills, Maintenance, 10/10/19 11:17:00 EDT, Tablet, [facility]/pharmacy #[id number], 113.6, kg, 01/22/19 15:29:00 EDT, Dry Weight Start Date: 10/10/19 Status: Ordered rizatriptan 5 mg oral tablet 1 tablet = 5 mg, By Mouth, Daily, PRN for migraine headache, may repeat dose every 2 hours up to a maximum of 3, # 30 tablet, 5 Refills, Maintenance, 10/09/20 16:46:00 EDT, Tablet, [facility]/pharmacy #[id number], Partial fill upon patient request if [...] Acute 11/20/20 15:45:00 EDT, 11/21/19 15:42:00 EDT, [facility] # 302, 113.6, kg, 01/22/19 15:29:00 EDT, Dry Weight Start Date: 11/21/19 Stop Date: 11/20/20 Status: Ordered zolpidem 10 mg oral tablet See Instructions, TAKE ONE TABLET BY MOUTH AT BEDTIME NEEDED 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, # 30 tablet, 5 Refills, Maintenance, 07/25/20 12:12:00 EST, [facility] # 302, 179, cm, 07/18/20 14:54:00 EST, Height, 113.6, kg, 01/22/19 15:29:00 EDT, Dry Weight Start Date: 07/25/20 Status: Ordered zolpidem 10 mg oral tablet See Instructions, TAKE ONE TABLET BY MOUTH AT BEDTIME NEEDED 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, # 30 tablet, 5 Refills, Maintenance, 07/24/20 13:33:00 EST, [facility]/pharmacy #[id number], 179, cm, 07/18/20 14:54:00 EST, Height, [...]
--- OUTSIDE RECORDS SUMMARY | 2024-03-27 15:07 | XMS_ITS | Continuity of Care Document ---
Author Organization [facility] Address [address] [place] [address]- Care Team Providers Care Matrix Plater Name Role Phone Chata HUGHES, Yaima Reed Primary Care Physician En[place] [facility] [place] Date(s): 10/01/20 - 10/31/20 [facility] [address] [place], [place] [address] Allergies, Adverse Reactions, Alerts Substance [...] 0 Refills, Acute, 08/20/20 8:36:00EDT, [facility], 179, cm, 07/18/20 14:54:00 EST, Height, 113.6, [...] EDT, 10/22/20 18:24:00 EDT, ER Tablet, [facility]/pharmacy #[id number], Partial fill upon patient request if the prescription is for a schedule I... Start Date: 10/22/20 Stop Date: 11/11/20 Status: Ordered ipratropium nasal 21 mcg/inh spray 0 Refills, Maintenance, 06/01/19 12:48:00 EST Start Date: 06/01/19 Status: Ordered ketoconazole 2% topical shampoo 1 application, Topically, Daily, # 120 mL, 0 Refills, Soft Stop, 10/25/19 11:51:00 EDT, Shampoo, [facility]/pharmacy #[id number], 1 application Topically Daily, 113.6, kg, [...] Stop 03/02/21 12:22:00 EDT, 05/06/20 12:22:00 EST, [facility] # 302, 1 tablet... Start Date: [...] Refills, Maintenance, 10/10/19 11:17:00 EDT, Tablet, [facility]/pharmacy #[id number], 113.6, kg, 01/22/19 15:29:00 EDT, Dry Weight Start Date: 10/10/19 Status: Ordered rizatriptan 5 mg oral tablet 1 tablet = 5 mg, By Mouth, Daily, PRN for migraine headache, may repeat dose every 2 hours up to a maximum of 3, # 30 tablet, 5 Refills, Maintenance, 10/09/20 16:46:00 EDT, Tablet, [facility]/pharmacy #[id number], Partial fill upon patient request if [...] Acute 11/20/20 15:45:00 EDT, 11/21/19 15:42:00 EDT, [facility] # 302, 113.6, kg, 01/22/19 15:29:00 EDT, Dry Weight Start Date: 11/21/19 Stop Date: 11/20/20 Status: Ordered zolpidem 10 mg oral tablet See Instructions, TAKE ONE TABLET BY MOUTH AT BEDTIME NEEDED 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, # 30 tablet, 5 Refills, Maintenance, 07/25/20 12:12:00 EST, [facility] # 302, 179, cm, 07/18/20 14:54:00 EST, Height, 113.6, kg, 01/22/19 15:29:00 EDT, Dry Weight Start Date: 07/25/20 Status: Ordered zolpidem 10 mg oral tablet See Instructions, TAKE ONE TABLET BY MOUTH AT BEDTIME NEEDED 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, # 30 tablet, 5 Refills, Maintenance, 07/24/20 13:33:00 EST, [facility]/pharmacy #[id number], 179, cm, 07/18/20 14:54:00 EST, Height, [...]
--- OUTSIDE RECORDS SUMMARY | 2024-03-27 15:07 | XMS_ITS | Continuity of Care Document ---
Author Organization [facility] em Address Unknown Care Team Providers Care Tobacco Stemmer Machine Name Role Phone Yaima Brizuela MD Primary Care Physician Encounter [facility] [place] Date(s): 08/25/21 - 09/24/21 [facility] Attending Physician: Jason Gonzalez Admitting Physician: Jason Gonzalez Referring Physician: Jason Gonzalez Referring Physician: Karla Benito Allergies, Adverse Reactions, [...] Soft Stop, 10/25/19 11:51:00 EDT, Shampoo, [facility]/pharmacy #0859, 1 application Topically Daily, [...] 3 Refills, Maintenance, 12/09/20 11:35:00 EDT, Tablet, [facility]/pharmacy #[id number], 179, cm, 11/27/20 14:03:00 EDT, [...] 30 tablet, 5 Refills,Maintenance, 08/06/21 14:06:00 EST, [facility] # 302, 177.8, cm, 08/06/21 11:00:00 EST, Height, 116.3, kg, 07/13/21 12:56:00 EST, Dry Weight Start Date: 08/06/21 Status: Ordered zolpidem 10 mg oral tablet See Instructions, TAKE ONE TABLET BY MOUTH AT BEDTIME NEEDED 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, # 30 tablet, 5 Refills, Maintenance, 02/17/21 15:40:00 EDT, [facility] # 302, 179, cm, 02/12/21 11:02:00 [...]
--- OUTSIDE RECORDS SUMMARY | 2024-03-27 15:07 | XMS_ITS | Continuity of Care Document ---
Author Organization [facility] Address [address] [place] [address]- Care Team Providers Care Distribution Engineering Technologist Name Role Phone Yaima Brizuela MD Primary Care Physician [phone] [place] [facility] [place]23 [place] 01/05/24 [facility] [address] [place], [place] [address] Allergies, Adverse Reactions, Alerts Substance Reaction Severity Status terazosin DIZZINESS Active Glutens Active Xolair anaphylaxis Active Immunizations Given and Recorded Vaccine Date Status Refusal Reason SARS-CoV-2(COVID-19)mRNA-LNP vac([id number]) 03/18/23 Recorded [id number] 12y+ bivalent booster vax 03/26/22 Recorded SARS-CoV-2 (COVID-19) mRNA BNT-162b2 vac 1 06/25/21 Recorded SARS-CoV-2 (COVID-19) mRNA BNT-162b2 vac 01/03/21 Recorded SARS-CoV-2 (COVID-19) mRNA BNT-162b2 vac 12/13/20 Recorded 1Result Comment: 3rd dose Medications candesartan 4 mg oral tablet 1/2 TO 1 TABLET, By Mouth, Daily, # 90 tablet, 1 Refills, Maintenance, 03/14/23 6:44:00 EDT, [facility], 178, cm, 01/24/23 15:44:00 EDT, Height, 109.5, [...] Refills, Maintenance, 08/25/22 15:57:00 EDT, Solution, [facility]/pharmacy #[id number], Partial fill upon patient request if [...] 3 Refills, Maintenance, 08/03/23 13:17:00 EST, Tablet, [facility]/pharmacy #[id number], Partial fill upon patient request if [...] Refills, Maintenance, 11/28/23 8:27:00 EDT, [facility], 178, cm, 11/17/23 10:55:00 EDT, Height, 113, kg, 11/17/23 10:55:00 EDT,Dry Weight Start Date: 11/28/23 Status: Ordered zolpidem 10 mg oral tablet See Instructions, TAKE 1 TABLET BY MOUTH AT BEDTIME NEEDED 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 AURABINDO PHOTOGRAPHS CURATOR, # 30 tablet, 5 Refills, Maintenance, 08/25/23 12:51:00 EDT, [id number], AURABINDO PHOTOGRAPHS CURATOR ONLY PLEASE, 178, cm, 08/11/23 10:59:00 EST, [...] Team Personnel Name: Yaima Brizuela MD Position: [facility] Physician - Primary Care Member Role: PCP Address: Address: [address] [address]- Care Team Related Persons Name: AISHA ESTEVES Address: home [address] [place] [address] Name: CECE ESTEVES Address: [place] [address] Name: CECE NUÑEZ Address: home [address] [place] [address]
--- OUTSIDE RECORDS SUMMARY | 2024-03-27 15:07 | XMS_ITS | Continuity of Care Document ---
Author Organization [facility] Address [address] [place] [address]- Care Team Providers Care Rn Occupational Health Name Role Phone Yaima Brizuela MD Primary Care Physician En[place] [facility] [place] Date(s): 08/18/20 - 09/17/20 [facility] [address] [place], [place] [address] Allergies, Adverse Reactions, Alerts Substance [...] 56 tablet, 0 Refills, Acute, 08/20/20 8:36:00EDT, [facility], 179, cm, 07/18/20 14:54:00 EST, Height, 113.6, [...] Soft Stop, 10/25/19 11:51:00 EDT, Shampoo, [facility]/pharmacy #0859, 1 application Topically Daily, [...] 03/02/21 12:22:00 EDT, 05/06/20 12:22:00 EST, [facility] # 302, 1 tablet... Start [...] 3 Refills, Maintenance, 10/10/19 11:17:00 EDT, Tablet, [facility]/pharmacy #0859, 113.6, kg, 01/22/19 15:29:00 [...] Acute 11/20/20 15:45:00 EDT, 11/21/19 15:42:00 EDT, [facility] # 302, 113.6, kg, 01/22/19 15:29:00 EDT, Dry Weight Start Date: 11/21/19 Stop Date: 11/20/20 Status: Ordered zolpidem 10 mg oral tablet See Instructions, TAKE ONE TABLET BY MOUTH AT BEDTIME NEEDED 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, # 30 tablet, 5 Refills, Maintenance, 07/25/20 12:12:00 EST, [facility] # 302, 179, cm, 07/18/20 14:54:00 EST, Height, 113.6, kg, 01/22/19 15:29:00 EDT, Dry Weight Start Date: 07/25/20 Status: Ordered zolpidem 10 mg oral tablet See Instructions, TAKE ONE TABLET BY MOUTH AT BEDTIME NEEDED 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, # 30 tablet, 5 Refills, Maintenance, 07/24/20 13:33:00 EST, [facility]/pharmacy #[id number], 179, cm, 07/18/20 14:54:00 [...]
--- OUTSIDE RECORDS SUMMARY | 2024-03-27 15:07 | XMS_ITS | Continuity of Care Document ---
Author Organization [facility] Address [address] [place] [address]- Care Team Providers Care Percussion Instrument Tuner Name Role Phone Yaima Brizuela MD Primary Care Physician Encounter [facility] [place] Date(s): 01/03/20 - 02/02/20 [facility] [address] [place] [address]- [facility] Allergies, Adverse Reactions, Alerts Substance Reaction [...] Soft Stop, 10/25/19 11:51:00 EDT, Shampoo, [facility]/pharmacy #0859, 1 application Topically Daily, [...] 3 Refills, Maintenance, 10/10/19 11:17:00 EDT, Tablet, [facility]/pharmacy #0859, 113.6, kg, 01/22/19 15:29:00 EDT, [...] Acute 11/20/20 15:45:00 EDT, 11/21/19 15:42:00 EDT, [facility] # 302, 113.6, kg, [...]
--- OUTSIDE RECORDS SUMMARY | 2024-03-27 15:07 | XMS_ITS | Continuity of Care Document ---
Author Organization [facility] Sohail yao Address [address] [place] [address] ve [address] [place] [address]- Care Team Providers Care Care Management Assistant Name Role Phone Yaima Brizuela MD Primary Care Physician Encounter [facility] Date(s): 02/26/21 - 03/28/21 [facility] [address] [place] [address] Drive [address] [place] [address]- Allergies, Adverse Reactions, Alerts Substance Reaction Severity [...] 56 tablet, 0 Refills, Acute, 08/20/20 8:36:00EDT, [facility], 179, cm, 07/18/20 14:54:00 EST, Height, 113.6, [...] Refills, Soft Stop, 10/25/19 11:51:00 EDT, Shampoo, [facility]/pharmacy #0859, 1 application Topically Daily, [...] 3 Refills, Maintenance, 12/09/20 11:35:00 EDT, Tablet, [facility]/pharmacy #0859, 179, cm, 11/27/20 14:03:00 EDT, Height, 121.1, kg, 10/22/20 14:46:00 EDT, Dry Weight Start Date: 12/09/20 Status: Ordered rizatriptan 5 mg oral tablet 1 tablet = 5 mg, By Mouth, Daily, PRN for migraine headache, may repeat dose every 2 hours up to a maximum of 3, # 30 tablet, 5 Refills, Maintenance, 10/09/20 16:46:00 EDT, Tablet, [facility]/pharmacy #0859, Partial fill upon patient [...] tablet, 5 Refills, Maintenance, 07/24/20 13:33:00 EST, [facility]/pharmacy #[id number], 179, cm, 07/18/20 14:54:00 [...] tablet, 5 Refills, Maintenance, 02/17/21 15:40:00 EDT, [facility] # 302, 179, cm, 02/12/21 11:02:00 [...]
--- OUTSIDE RECORDS SUMMARY | 2024-03-27 15:07 | XMS_ITS | Continuity of Care Document ---
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 Attending Physician: Yaima Brizuela MD Allergies, Adverse [...] 0 Refills, Maintenance, 10/07/20 8:17:00 EDT, Tablet, [facility]/pharmacy #[id number], Partial fill upon patient request if [...] 0 Refills, Acute, 08/20/20 8:36:00EDT, [facility], 179, cm, 07/18/20 14:54:00 EST, Height, 113.6, [...] 10/25/19 11:51:00 EDT, Shampoo, [facility]/pharmacy #[id number], 1 application Topically Daily, 113.6, kg, [...] Stop 03/02/21 12:22:00 EDT, 05/06/20 12:22:00 EST, [facility] # 302, 1 [...] Refills, Maintenance, 12/09/20 11:35:00 EDT, Tablet, [facility]/pharmacy #[id number], 179, cm, 11/27/20 14:03:00 EDT, Height, 121.1, kg, 10/22/20 14:46:00 EDT, Dry Weight Start Date: 12/09/20 Status: Ordered rizatriptan 5 mg oral tablet 1 tablet = 5 mg, By Mouth, Daily, PRN for migraine headache, may repeat dose every 2 hours up to a maximum of 3, # 30 tablet, 5 Refills, Maintenance, 10/09/20 16:46:00 EDT, Tablet, [facility]/pharmacy #[id number], Partial fill upon patient request if [...] tablet, 5 Refills, Maintenance, 02/16/21 15:29:00 EDT, [facility]/pharmacy #[id number], 179, cm, 02/12/21 11:02:00 EDT, Height, 121.1, kg, 10/22/20 14:46:00 EDT, Dry Weight Start Date: 02/16/21 Status: Ordered zolpidem 10 mg oral tablet See Instructions, TAKE ONE TABLET BY MOUTH AT BEDTIME NEEDED 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, # 30 tablet, 5 Refills, Maintenance, 02/17/21 15:40:00 EDT, [facility] # 302, 179, cm, 02/12/21 11:02:00 [...] Recurrent UTI(Confirmed) Active Sacroiliac joint pain(Confirmed) Active Diagnosis Diagnosis Type Effective Dates Health Status Clinical Service Informant Amos-Danlos syndrome Discharge Diagnosis 02/18/21 Mast cell activation Discharge Diagnosis 02/18/21 Recurrent UTI Discharge Diagnosis 02/18/21 Tommy's thyroiditis Discharge Diagnosis 02/18/21 Vital Signs Most recent to oldest [Reference Range]: 1 Height 179 cm (02/12/21 11:02 AM) Weight 114.8 kg (02/12/21 11:02 AM) Oxygen Saturation [94-100 %] 98 % (02/12/21 11:02 AM) Pulse Rate [55-90 bpm] 100 bpm *H* (02/12/21 11:02 AM) Body Mass Index [18.5-24.99] 35.83 *>HHI* (02/12/21 11:02 AM) Blood Pressure [90-138/55-84 mm Hg] 102/ 58mm Hg (02/12/21 11:02 AM) Respiratory Rate [16-30 br/min] 18 br/mi n (02/12/21 11:02 AM) Temperature [96.8-100.4 DegF] 97.7 DegF (02/12/21 11:02 AM) Mode of Delivery (Oxygen) Room air (02/12/21 11:02 AM) Blood pressure sites Arm, left (02/12/21 11:02 AM) Temperature Route Temporal (02/12/21 11:02 AM) Weight Obtained Via Standing scale (02/12/21 11:02 AM)
--- OUTSIDE RECORDS SUMMARY | 2024-03-27 15:07 | XMS_ITS | Continuity of Care Document ---
Author Organization [facility] Address [address] [place] [address]- Care Team Providers Care Tipple Supervisor Name Role Phone Yaima Brizuela MD Primary Care Physician [place] [facility] [place]20 [place] 03/15/20 [facility] [address] [place] [address]- [facility] Allergies, Adverse Reactions, Alerts Substance Reaction Severity [...] 3 Refills, Maintenance, 10/10/19 11:17:00 EDT, Tablet, [facility]/pharmacy #[id number], 113.6, kg, 01/22/19 15:29:00 EDT, [...] 11/20/20 15:45:00 EDT, 11/21/19 15:42:00 EDT, [facility] # 302, 113.6, kg, 01/22/19 15:29:00 [...]
--- OUTSIDE RECORDS SUMMARY | 2024-03-27 15:07 | XMS_ITS | Continuity of Care Document ---
Author Organization [facility] Address [address] [place] [address] [address] [place] [address]- Care Team Providers Care Die Setter Name Role Phone Yaima Brizuela MD Primary Care Physician [phone] [place] [facility] [place] Date(s): 11/20/20 - 12/20/20 [facility] [address] [place] [address] Drive [address] [place] [address]- Allergies, Adverse Reactions, Alerts Substance Reaction Severity [...] 56 tablet, 0 Refills, Acute, 08/20/20 8:36:00EDT, [facility], 179, cm, 07/18/20 14:54:00 EST, Height, 113.6, [...] Physician Stop 03/02/21 12:22:00 EDT, 05/06/20 12:22:00 [facility], [facility] # 302, 1 tablet... Start [...] 3 Refills, Maintenance, 12/09/20 11:35:00 EDT, Tablet, [facility]/pharmacy #0859, 179, cm, 11/27/20 14:03:00 EDT, Height, 121.1, kg, 10/22/20 14:46:00 EDT, Dry Weight Start Date: 12/09/20 Status: Ordered rizatriptan 5 mg oral tablet 1 tablet = 5 mg, By Mouth, Daily, PRN for migraine headache, may repeat dose every 2 hours up to a maximum of 3, # 30 tablet, 5 Refills, Maintenance, 10/09/20 16:46:00 EDT, Tablet, [facility]/pharmacy #[id number], Partial fill [...] tablet, 5 Refills, Maintenance, 07/25/20 12:12:00 EST, [facility] # 302, 179, cm, 07/18/20 14:54:00 EST, Height, 113.6, kg, 01/22/19 15:29:00 EDT, Dry Weight Start Date: 07/25/20 Status: Ordered zolpidem 10 mg oral tablet See Instructions, TAKE ONE TABLET BY MOUTH AT BEDTIME NEEDED 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, # 30 tablet, 5 Refills, Maintenance, 07/24/20 13:33:00 EST, [facility]/pharmacy #[id number], 179, cm, 07/18/20 14:54:00 [...]
--- OUTSIDE RECORDS SUMMARY | 2024-03-27 15:07 | XMS_ITS | Continuity of Care Document ---
Author Organization [facility] Address [address] [place] [address]- Care Team Providers Care Insole Taper Name Role Phone Yaima Brizuela MD Primary Care Physician [phone] [place] [facility] [place] [id number] Date(s): 04/19/23 - 06/19/23 [facility] [address] [place] [address]- Attending Physician: Jay Jay Santiago MD Admitting Physician: Jay Jay Santiago MD Allergies, Adverse Reactions, Alerts Substance Reaction Severity Status terazosin DIZZINESS Active Glutens Active Xolair anaphylaxis Active Immunizations Given and Recorded Vaccine Date Status Refusal Reason SARS-CoV-2(COVID-19)mRNA-LNP vac([id number]) 03/18/23 Recorded [id number] 12y+ bivalent booster vax 03/26/22 Recorded SARS-CoV-2 (COVID-19) mRNA BNT-162b2 vac 1 06/25/21 Recorded SARS-CoV-2 (COVID-19) mRNA BNT-162b2 vac 01/03/21 Recorded SARS-CoV-2 (COVID-19) mRNA BNT-162b2 vac 12/13/20 Recorded 1Result Comment: 3rd dose Medications candesartan 4 mg oral tablet 1/2 TO 1 TABLET, By Mouth, Daily, # 90 tablet, 1 Refills, Maintenance, 03/14/23 6:44:00 EDT, [facility], 178, cm, 01/24/23 15:44:00 EDT, Height, 109.5, [...] 1 Refills, Maintenance, 08/25/22 15:57:00 EDT, Solution, [facility]/pharmacy #[id number], Partial fill upon patient request if [...] MOUTH AT BEDTIME NEEDED 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 AURABINDO MERCHANDISING ASSISTANT, # 30 tablet, 5 Refills, Maintenance, 02/22/23 13:51:00 EDT, [id number], AURABINDO MERCHANDISING ASSISTANT ONLY PLEASE, 178, cm, 01/24/23 15:44:00 EDT, [...] Primary Care Member Role: PCP Address: Address: [address] [place] [address]- Care Team Related Persons Name: AISHA ESTEVES Address: home [address] [place] [address] Name: CECE ESTEVES Address: [place] [address] Name: CECE NUÑEZ Address: home [address] [place] [address]
--- OUTSIDE RECORDS SUMMARY | 2024-03-27 15:07 | XMS_ITS | Continuity of Care Document ---
Author Organization [facility] Address [address] [place] [address]- Care Team Providers Care Shear Assembler Name Role Phone Yaima Brizuela MD Primary Care Physician [phone] [place] [facility] [place](s[place] 04/25/23 - 05/25/23 [facility] [address] [place], [place] [address] Allergies, Adverse Reactions, Alerts Substance Reaction Severity Status terazosin DIZZINESS Active Glutens Active Xolair anaphylaxis Active Immunizations Given and Recorded Vaccine Date Status Refusal Reason SARS-CoV-2(COVID-19)mRNA-LNP vac([id number]) 03/18/23 Recorded [id number] 12y+ bivalent booster vax 03/26/22 Recorded SARS-CoV-2 [...] Refills, Maintenance, 03/14/23 6:44:00 EDT, [facility], 178, cm, 01/24/23 15:44:00 EDT, Height, 109.5, [...] 1 Refills, Maintenance, 08/25/22 15:57:00 EDT, Solution, [facility]/pharmacy #[id number], Partial fill [...] MOUTH AT BEDTIME NEEDED 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 AURABINDO BEEF BONER, # 30 tablet, 5 Refills, Maintenance, 02/22/23 13:51:00 EDT, [id number], AURABINDO BEEF BONER ONLY PLEASE, 178, cm, 01/24/23 15:44:00 EDT, [...] Team Personnel Name: Yaima Brizuela MD Position: [facility] Physician - Primary Care Member Role: PCP Address: Address: [address] [place] [address]- Care Team Related Persons Name: AISHA ESTEVES Address: [address] [place] [address] Name: CECE ESTEVES Address: [place] [address] Name: CECE NUÑEZ Address: home [address] [place] [address]
--- OUTSIDE RECORDS SUMMARY | 2024-03-27 15:07 | XMS_ITS | Continuity of Care Document ---
Author Organization [facility][1] [facility] Address [address] [place] [address]- Care Team Providers Care Machine Operator Hop Picker Name Role Phone Chata HUGHES, Yaima Reed Primary Care Physician [place] [facility] [place]25[place]21 - 12/25/21 [facility] [address] [place] [address]- Allergies, Adverse Reactions, Alerts Substance Reaction Severity [...] MOUTH AT BEDTIME NEEDED 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 AURABINDO DESKTOP ADMINISTRATOR, # 30 tablet, 5 Refills, Maintenance, 11/25/21 16:15:00 EDT, [facility] #[id number], AURABINDO DESKTOP ADMINISTRATOR ONLY PLEASE, 177.8, cm, 11/20/21 14:05... Start [...]
--- OUTSIDE RECORDS SUMMARY | 2024-03-27 15:07 | XMS_ITS | Continuity of Care Document ---
Author Organization [facility] Address [address] [place] [address]- Care Team Providers Care Railroad Design Consultant Name Role Phone Yaima Brizuela MD Primary Care Physician [place] [facility] [place] Date(s): 05/29/20 - 06/28/20 [facility] [address] [place], [place] [address] Allergies, Adverse Reactions, Alerts Substance [...] Stop 03/02/21 12:22:00 EDT, 05/06/20 12:22:00 EST, [facility] # 302, 1 tablet... [...] Refills, Maintenance, 10/10/19 11:17:00 EDT, Tablet, [facility]/pharmacy #[id number], 113.6, kg, 01/22/19 15:29:00 EDT, Dry Weight Start Date: 10/10/19 Status: Ordered SUMAtriptan 50 mg oral tablet 1 tablet = 50 mg, By Mouth, Daily, PRN for migraine headache, may repeat dose after 2 hours up to amaximum of 2, # 9 tablet, 1 Refills, Acute 06/29/20 14:53:00 EST, 05/29/20 14:53:00 EST, Tablet, [facility]/pharmacy #[id number], Partial fill upon patient request... Start [...] Acute 11/20/20 15:45:00 EDT, 11/21/19 15:42:00 EDT, [facility] # 302, 113.6, kg, 01/22/19 15:29:00 EDT, Dry Weight Start Date: 11/21/19 Stop Date: 11/20/20 Status: Ordered zolpidem 10 mg oral tablet See Instructions, TAKE ONE TABLET BY MOUTH AT BEDTIME NEEDED 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, # 30 tablet, 3 Refills, Maintenance, 04/21/20 17:29:00 EST, [facility] # 302, 179, cm, 04/07/20 11:04:00 [...]
--- OUTSIDE RECORDS SUMMARY | 2024-03-27 15:07 | XMS_ITS | Continuity of Care Document ---
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/pharmacy #[id number], Partial fill upon patient [...] 0 Refills, Acute, 08/20/20 8:36:00EDT, [facility], 179, cm, 07/18/20 14:54:00 EST, Height, 113.6, [...] Stop, 10/25/19 11:51:00 EDT, Shampoo, [facility]/pharmacy #0859, 1 application Topically Daily, [...] Stop 03/02/21 12:22:00 EDT, 05/06/20 12:22:00 EST, [facility] # 302, 1 tablet... Start Date: [...] 3 Refills, Maintenance, 10/10/19 11:17:00 EDT, Tablet, [facility]/pharmacy #[id number], 113.6, kg, 01/22/19 15:29:00 EDT, Dry Weight Start Date: 10/10/19 Status: Ordered rizatriptan 5 mg oral tablet 1 tablet = 5 mg, By Mouth, Daily, PRN for migraine headache, may repeat dose every 2 hours up to a maximum of 3, # 30 tablet, 5 Refills, Maintenance, 10/09/20 16:46:00 EDT, Tablet, [facility]/pharmacy #[id number], Partial fill upon patient [...] Acute 11/20/20 15:45:00 EDT, 11/21/19 15:42:00 EDT, [facility] # 302, 113.6, kg, 01/22/19 15:29:00 EDT, Dry Weight Start Date: 11/21/19 Stop Date: 11/20/20 Status: Ordered zolpidem 10 mg oral tablet See Instructions, TAKE ONE TABLET BY MOUTH AT BEDTIME NEEDED 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, # 30 tablet, 5 Refills, Maintenance, 07/25/20 12:12:00 EST, [facility] # 302, 179, cm, 07/18/20 14:54:00 EST, Height, 113.6, kg, 01/22/19 15:29:00 EDT, Dry Weight Start Date: 07/25/20 Status: Ordered zolpidem 10 mg oral tablet See Instructions, TAKE ONE TABLET BY MOUTH AT BEDTIME NEEDED 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, # 30 tablet, 5 Refills, Maintenance, 07/24/20 13:33:00 EST, [facility]/pharmacy #[id number], 179, cm, 07/18/20 14:54:00 [...] Clinical Service Informant Amos-Danlos syndrome Discharge Diagnosis 11/06/20 Mast cell activation Discharge Diagnosis 11/06/20 Recurrent UTI Discharge Diagnosis 11/06/20 Sacroiliac joint pain Discharge Diagnosis 11/06/20 Migraine Discharge Diagnosis 11/06/20 Vital Signs Most recent to oldest [Reference Range]: 1 Height 179 cm (11/06/20 11:03 AM) Weight 118.6 kg (11/06/20 11:03 AM) Oxygen Saturation [94-100 %] 98 % (11/06/20 11:03 AM) Pulse Rate [55-90 bpm] 101 bpm *H* (11/06/20 11:03 AM) Body Mass Index [18.5-24.99] 37.02 *>HHI* (11/06/20 11:03 AM) Blood Pressure [90-138/55-84 mm Hg] 110/ 70mm Hg (11/06/20 11:03 AM) Temperature [96.8-100.4 DegF] 98.3 DegF (11/06/20 11:03 AM)
--- OUTSIDE RECORDS SUMMARY | 2024-03-27 15:07 | XMS_ITS | Continuity of Care Document ---
Author Organization [facility] Address [address] [place] [address]- Care Team Providers Care Shearing Shed Hand Name Role Phone Yaima Brizuela MD Primary Care Physician [place] [facility] [place](s): 01/02/21 - 02/01/21 [facility] [address] [place], [place] [address] Allergies, Adverse Reactions, Alerts [...] 56 tablet, 0 Refills, Acute, 08/20/20 8:36:00EDT, [facility] STORE 88736, 179, cm, 07/18/20 14:54:00 EST, Height, 113.6, [...] Refills, Soft Stop, 10/25/19 11:51:00 EDT, Shampoo, [facility]/pharmacy #0859, 1 application Topically Daily, 113.6, kg, [...] Physician Stop 03/02/21 12:22:00 EDT, 05/06/20 12:22:00 RUST, [facility] # 302, 1 [...] 3 Refills, Maintenance, 12/09/20 11:35:00 EDT, Tablet, [facility]/pharmacy #0859, 179, cm, 11/27/20 14:03:00 EDT, Height, 121.1, kg, 10/22/20 14:46:00 EDT, Dry Weight Start Date: 12/09/20 Status: Ordered rizatriptan 5 mg oral tablet 1 tablet = 5 mg, By Mouth, Daily, PRN for migraine headache, may repeat dose every 2 hours up to a maximum of 3, # 30 tablet, 5 Refills, Maintenance, 10/09/20 16:46:00 EDT, Tablet, [facility]/pharmacy #[id number], Partial fill upon patient request if [...]
--- OUTSIDE RECORDS SUMMARY | 2024-03-27 15:08 | XMS_ITS | Continuity of Care Document ---
Author Organization [facility] Address [address] [place] [address]- Care Team Providers Care Cotton Bag Clipper Name Role Phone Yaima Brizuela MD Primary Care Physician [phone] [place] [facility] [place](s): 09/21/23 - 10/21/23 [facility] [address] [place], [place] [address] Allergies, Adverse Reactions, Alerts Substance Reaction Severity Status terazosin DIZZINESS Active Glutens Active Xolair anaphylaxis Active Immunizations Given and Recorded Vaccine Date Status Refusal Reason SARS-CoV-2(COVID-19)mRNA-LNP vac([id number]) 03/18/23 Recorded [id number] 12y+ bivalent booster vax 03/26/22 Recorded SARS-CoV-2 (COVID-19) mRNA BNT-162b2 vac 1 06/25/21 Recorded SARS-CoV-2 (COVID-19) mRNA BNT-162b2 vac 01/03/21 Recorded SARS-CoV-2 (COVID-19) mRNA BNT-162b2 vac 12/13/20 Recorded 1Result Comment: 3rd dose Medications candesartan 4 mg oral tablet 1/2 TO 1 TABLET, By Mouth, Daily, # 90 tablet, 1 Refills, Maintenance, 03/14/23 6:44:00 EDT, [facility], 178, cm, 01/24/23 15:44:00 EDT, Height, 109.5, [...] 1 Refills, Maintenance, 08/25/22 15:57:00 EDT, Solution, [facility]/pharmacy #[id number], Partial fill upon patient [...] 3 Refills, Maintenance, 08/03/23 13:17:00 EST, Tablet, [facility]/pharmacy #[id number], Partial fill upon patient [...] Gm, 5 Refills, Maintenance, 02/07/23 16:36:00 EDT, [facility]/pharmacy#0859, Partial fill upon patient request if the prescription is for a schedule II opioid drug., 178, cm, 01/24/23 15:44:00 EDT, Height, 109.5, kg, 06/0... Start Date: 02/07/23 Status: Ordered zolpidem 10 mg oral tablet See Instructions, TAKE 1 TABLET BY MOUTH AT BEDTIME NEEDED 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 AURABINDO TELEX OPERATOR, # 30 tablet, 5 Refills, Maintenance, 08/25/23 12:51:00 EDT, [facility]/pharmacy #[id number], AURABINDO TELEX OPERATOR ONLY PLEASE, 178, cm, 08/11/23 10:59:00 [...] Team Personnel Name: Yaima Brizuela MD Position: [facility] Physician - Primary Care Member Role: PCP Address: Address: [address] [place] [address]- Care Team Related Persons Name: AISHA ESTEVES Address: home [address] [place] [address] Name: CECE ESTEVES Address: [place] [address] Name: CECE NUÑEZ Address: home [address] [place] [address]
--- OUTSIDE RECORDS SUMMARY | 2024-03-27 15:08 | XMS_ITS | Continuity of Care Document ---
Author Organization [facility][1] [facility] Address [address] [place] [address]- Care Team Providers Care Media Arts Professor Name Role Phone Yaima Brizuela MD Primary Care Physician En[place] [facility] [place] Date(s): 05/14/21 - 05/21/21 [facility][1[facility] [address] [place] [address]- Encounter Diagnosis Chronic headache(Discharge Diagnosis) - 05/14/21 Lyme disease(Discharge Diagnosis) - 05/14/21 Migraine(Discharge Diagnosis) - 05/14/21 Amos-Danlos syndrome(Discharge Diagnosis) - 05/14/21 Attending Physician: Yaima Brizuela MD Allergies, Adverse [...] 12/04/19 Status: Ordered Disulfiram By Mouth, Daily, Refills 0, Maintenance, 04/21/21 11:00:00 EST, Partial [...] opioid drug. Start Date: 04/21/21 Status: Ordered June06/25 oral tablet 0 Refills, Maintenance, 05/14/21 11:12:00 EST, Partial fill upon patient request if the prescription is for a schedule II opioid drug. Start Date: 05/14/21 Status: Ordered ketoconazole 2% topical shampoo 1 application, Topically, Daily, # 120 mL, 0 Refills, Soft Stop, 10/25/19 11:51:00 EDT, Shampoo, [facility]/pharmacy #[id number], 1 application Topically Daily, 113.6, [...] 3 Refills, Maintenance, 12/09/20 11:35:00 EDT, Tablet, [facility]/pharmacy #[id number], 179, cm, 11/27/20 14:03:00 EDT, Height, [...] tablet, 5 Refills, Maintenance, 02/17/21 15:40:00 EDT, [facility], 179, cm, 02/12/21 11:02:00 [...] Diagnosis Diagnosis Type Effective Dates Health Status Cl inical Service Informant Chronic headache Discharge Diagnosis 05/14/21 Lyme disease Discharge Diagnosis 05/14/21 Migraine Discharge Diagnosis 05/14/21 Amos-Danlos syndrome Discharge Diagnosis 05/14/21 Vital Signs Most recent to oldest [Reference Range]: 1 Height 179 cm (05/14/21 11:01 AM) Weight 115.8 kg (05/14/21 11:01 AM) Oxygen Saturation [94-100 %] 98 % (05/14/21 11:01 AM) Pulse Rate [55-90 bpm] 104 bpm *H* (05/14/21 11:01 AM) Body Mass Index [18.5-24.99] 36.14 *>HHI* (05/14/21 11:01 AM) Blood Pressure [90-138/55-84 mm Hg] 118/ 68mm Hg (05/14/21 11:01 AM) Temperature [96.8-100.4 DegF] 97.7 DegF (05/14/21 11:01 AM) Mode of Delivery (Oxygen) Room air (05/14/21 11:01 AM) Blood pressure sites Arm, right (05/14/21 11:01 AM) Temperature Route Temporal (05/14/21 11:01 AM) Weight Obtained Via Standing scale (05/14/21 11:01 AM) Social History Social History Type Response Smoking Status Never (less than 100 in lifetime) entered on: 05/14/21 Sex
--- OUTSIDE RECORDS SUMMARY | 2024-03-27 15:08 | XMS_ITS | Continuity of Care Document ---
Author Organization [facility] Address [address] [place] [address]- Care Team Providers Care Raw Stock Machine Loader Name Role Phone Yaima Brizuela MD Primary Care Physician [phone] [place] [facility] [place] - 02/01/21 [facility] [address] [place], [place] [address] Allergies, Adverse Reactions, Alerts Substance [...] tablet, 0 Refills, Acute, 08/20/20 8:36:00EDT, [facility] 38349, 179, cm, 07/18/20 14:54:00 EST, Height, 113.6, [...] Soft Stop, 10/25/19 11:51:00 EDT, Shampoo, [facility]/pharmacy #[id number], 1 application Topically Daily, 113.6, [...] Physician Stop 03/02/21 12:22:00 EDT, 05/06/20 12:22:00 [facility] # 302, 1 tablet... Start Date: [...] 3 Refills, Maintenance, 12/09/20 11:35:00 EDT, Tablet, [facility]/pharmacy #0859, 179, cm, 11/27/20 14:03:00 EDT, Height, 121.1, kg, 10/22/20 14:46:00 EDT, Dry Weight Start Date: 12/09/20 Status: Ordered rizatriptan 5 mg oral tablet 1 tablet = 5 mg, By Mouth, Daily, PRN for migraine headache, may repeat dose every 2 hours up to a maximum of 3, # 30 tablet, 5 Refills, Maintenance, 10/09/20 16:46:00 EDT, Tablet, [facility]/pharmacy #[id number], Partial fill upon patient request [...] tablet, 5 Refills, Maintenance, 07/25/20 12:12:00 EST, [facility], 179, cm, 07/18/20 14:54:00 [...]
--- OUTSIDE RECORDS SUMMARY | 2024-03-27 15:08 | XMS_ITS | Continuity of Care Document ---
Author Organization [facility] Address [address] [place] [address]- Care Team Providers Care Corporate Human Resources Manager Name Role Phone Yaima Brizuela MD Primary Care Physician Encounter [facility] [place] Date(s): 03/11/20 - 04/10/20 [facility] [address] [place], [place] [address] Allergies, Adverse Reactions, Alerts Substance Reaction [...] 9:43:00 EDT Start Date: 12/04/19 Status: Ordered morphine 15 mg oral tablet, immediate release 1 tablet = 15 mg, By Mouth, Every 6 hours, PRN for pain, for 5 days, # 20 tablet, 0 Refills, Acute 04/12/20 11:39:00 EST, 04/07/20 11:39:00 EST, Tablet, [facility]/pharmacy #[id number], Partial fill upon patient request, 179, cm, 04/07/20 11:04:00 EST, Height, 113... Start Date: 04/07/20 Stop Date: 04/12/20 Status: Ordered Probiotic Formula 1 capsule, By [...] Acute 11/20/20 15:45:00 EDT, 11/21/19 15:42:00 EDT, [facility] # 302, 113.6, kg, 01/22/19 [...] Active Allergic rhinitis, unspecified(Confirmed) Active Asthma(Confirmed) Active Maos-Danlos syndrome(Confirmed) Active Endometriosis(Confirmed) Active Fibromyalgia(Confirmed) Active Tommy's thyroiditis(Confirmed) Active Insomnia(Confirmed) Active Lyme disease(Confirmed) Active Mast cell activation(Confirmed) Active Sacroiliac joint pain(Confirmed) Active
--- OUTSIDE RECORDS SUMMARY | 2024-03-27 15:08 | XMS_ITS | Continuity of Care Document ---
Author Organization [facility] Address [address] [place] [address]- Care Team Providers Care Senior Telecommunications Technician Name Role Phone Yaima Brizuela MD Primary Care Physician [place] [facility] [place] - 09/10/22 [facility] [address] [place], [place] [address] Allergies, Adverse Reactions, Alerts Substance Reaction Severity Status terazosin DIZZINESS Active Glutens Active Xolair anaphylaxis Active Immunizations Given and Recorded Vaccine Date Status Refusal Reason [id number] 12y+ bivalent booster vax 03/26/22 Recorded SARS-CoV-2 [...] Stop, 10/25/19 11:51:00 EDT, Shampoo, [facility]/pharmacy #[id number], 1 application Topically Daily, [...] MOUTH AT BEDTIME NEEDED 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 AURABINDO RURAL CARRIER, # 30 tablet, 5 Refills, Maintenance, 08/23/22 15:12:00 EDT, [id number], AURABINDO RURAL CARRIER ONLY PLEASE, 177.8, cm, 06/17/22 10:52:00 EST,... [...] Team Personnel Name: Yaima Brizuela MD Position: [facility] Primary Care Physician Member Role: PCP Address: Address: [address] [place] [address]- Care Team Related Persons Name: AISHA ESTEVES Address: home [address] [address] Name: CECE ESTEVES Name: CECE NUÑEZ Address: home [address] [place] [address]
--- OUTSIDE RECORDS SUMMARY | 2024-03-27 15:08 | XMS_ITS | Continuity of Care Document ---
Author Organization [facility] Address [address] [place] [address]- Care Team Providers Care Salt Washer Harvesting Station Name Role Phone Chata HUGHES, Yaima Reed Primary Care Physician Encounter [facility] [place] Date(s): 12/05/20 - 01/04/21 [facility] [address] [place] [address]- Allergies, Adverse Reactions, Alerts Substance Reaction Severity [...] 56 tablet, 0 Refills, Acute, 08/20/20 8:36:00EDT, [facility]45, 179, cm, 07/18/20 14:54:00 EST, Height, 113.6, [...] Physician Stop 03/02/21 12:22:00 EDT, 05/06/20 12:22:00 [facility] # 302, 1 tablet... Start [...] 3 Refills, Maintenance, 12/09/20 11:35:00 EDT, Tablet, [facility]/pharmacy #0859, 179, cm, 11/27/20 14:03:00 EDT, Height, 121.1, kg, 10/22/20 14:46:00 EDT, Dry Weight Start Date: 12/09/20 Status: Ordered rizatriptan 5 mg oral tablet 1 tablet = 5 mg, By Mouth, Daily, PRN for migraine headache, may repeat dose every 2 hours up to a maximum of 3, # 30 tablet, 5 Refills, Maintenance, 10/09/20 16:46:00 EDT, Tablet, [facility]/pharmacy #0859, Partial fill upon patient [...] tablet, 5 Refills, Maintenance, 07/25/20 12:12:00 EST, [email or web address] # [facility], 179, cm, 07/18/20 14:54:00 EST, Height, 113.6, kg, 01/22/19 15:29:00 EDT, Dry Weight Start Date: 07/25/20 Status: Ordered zolpidem 10 mg oral tablet See Instructions, TAKE ONE TABLET BY MOUTH AT BEDTIME NEEDED 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, # 30 tablet, 5 Refills, Maintenance, 07/24/20 13:33:00 EST, [facility]/pharmacy #[id number], 179, cm, 07/18/20 14:54:00 EST, [...]
--- OUTSIDE RECORDS SUMMARY | 2024-03-27 15:08 | XMS_ITS | Continuity of Care Document ---
Author Organization [facility] Address [address] [place] [address]- Care Team Providers Care Chief I Dispatcher Name Role Phone Yaima Brizuela MD Primary Care Physician Encounter [facility] [place] Date(s): 01/28/20 - 02/27/20 [facility] [address] [place] [address]- [facility] Allergies, Adverse Reactions, Alerts Substance Reaction Severity [...] Refills, Soft Stop, 10/25/19 11:51:00 EDT, Shampoo, [facility]/pharmacy #0859, 1 application Topically [...] 3 Refills, Maintenance, 10/10/19 11:17:00 EDT, Tablet, [facility]/pharmacy #0859, 113.6, kg, 01/22/19 15:29:00 EDT, [...] Acute 11/20/20 15:45:00 EDT, 11/21/19 15:42:00 EDT, [facility] # 302, 113.6, kg, 01/22/19 [...]
--- OUTSIDE RECORDS SUMMARY | 2024-03-27 15:08 | XMS_ITS | Continuity of Care Document ---
Author Organization [facility] Address [address] [place] [address]- Care Team Providers Care Skein Yarn Drier Name Role Phone Yaima Brizuela MD Primary Care Physician [phone] [place] [facility] [place] Date(s): 07/25/20 - 08/24/20 [facility] [address] [place], [place] [address] Allergies, Adverse Reactions, Alerts Substance [...] tablet, 0 Refills, Acute, 08/20/20 8:36:00EDT, [facility] 63871, 179, cm, 07/18/20 14:54:00 EST, Height, 113.6, [...] Soft Stop, 10/25/19 11:51:00 EDT, Shampoo, [facility]/pharmacy #0859, 1 application Topically Daily, 113.6, [...] Stop 03/02/21 12:22:00 EDT, 05/06/20 12:22:00 EST, [facility] # 302, 1 [...] Refills, Maintenance, 10/10/19 11:17:00 EDT, Tablet, [facility]/pharmacy #0859, 113.6, kg, 01/22/19 15:29:00 EDT, [...] Acute 11/20/20 15:45:00 EDT, 11/21/19 15:42:00 EDT, [facility] # 302, 113.6, kg, 01/22/19 15:29:00 EDT, Dry Weight Start Date: 11/21/19 Stop Date: 11/20/20 Status: Ordered zolpidem 10 mg oral tablet See Instructions, TAKE ONE TABLET BY MOUTH AT BEDTIME NEEDED 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, # 30 tablet, 5 Refills, Maintenance, 07/25/20 12:12:00 EST, [facility] # 302, 179, cm, 07/18/20 14:54:00 EST, Height, 113.6, kg, 01/22/19 15:29:00 EDT, Dry Weight Start Date: 07/25/20 Status: Ordered zolpidem 10 mg oral tablet See Instructions, TAKE ONE TABLET BY MOUTH AT BEDTIME NEEDED 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, # 30 tablet, 5 Refills, Maintenance, 07/24/20 13:33:00 EST, [facility]/pharmacy #[id number], 179, cm, 07/18/20 14:54:00 EST, [...]
--- OUTSIDE RECORDS SUMMARY | 2024-03-27 15:08 | XMS_ITS | Continuity of Care Document ---
Author Organization [facility] Address [address] [place] [address]- Care Team Providers Care Dental Equipment Technician Name Role Phone Yaima Brizuela MD Primary Care Physician [place] [facility] [place] 02/08/24 - 03/09/24 [facility] [address] [place] [address]- Allergies, Adverse Reactions, Alerts Substance Reaction Severity Status terazosin DIZZINESS Active Glutens Active Xolair anaphylaxis Active Immunizations Given and Recorded Vaccine Date Status Refusal Reason SARS-CoV-2(COVID-19)mRNA-LNP vac([id number]) 03/18/23 Recorded [id number] 12y+ bivalent booster vax 03/26/22 Recorded SARS-CoV-2 (COVID-19) mRNA BNT-162b2 vac 1 06/25/21 Recorded SARS-CoV-2 (COVID-19) mRNA BNT-162b2 vac 01/03/21 Recorded SARS-CoV-2 (COVID-19) mRNA BNT-162b2 vac 12/13/20 Recorded 1Result Comment: 3rd dose Medications acetaminophen-oxyCODONE 325 mg-5 mg oral tablet 1, tablet, By Mouth, 2 times a day, PRN, dx; myofascial pain for 5 days, # 10 tablet, Refills 0, Tot. Refills 0, Acute, as needed for pain, 03/13/24 14:39:00 EDT, 03/08/24 14:39:00 EDT, Route to Pharmacy Electronically, [facility]/pharmacy #[id number] Tablet, Part... Start Date: 03/08/24 Stop Date: 03/13/24 Status: Ordered Augmentin 875 mg-125 mg oral tablet 1 tablet, By Mouth, 2 times a day, for 7 days, # 14 tablet, 0 Refills, Acute 03/15/24 11:45:00 EDT,03/08/24 11:45:00 EDT, Tablet, [facility]/pharmacy #[id number], Partial fill upon patient request if the prescription is for a schedule II opioid drug., 178, cm, 10... Start Date: 03/08/24 Stop Date: 03/15/24 Status: Ordered candesartan 4 mg oral tablet 1/2 TO 1 TABLET, By Mouth, Daily, # 90 tablet, 1 Refills, Maintenance, 01/18/24 16:13:00 EDT, [facility]/pharmacy #0859, 178, cm, 01/09/24 15:03:00 EDT, Height, [...] 1 Refills, Maintenance, 08/25/22 15:57:00 EDT, Solution, [facility]/pharmacy #0859, Partial fill upon patient request [...] 3 Refills, Maintenance, 08/03/23 13:17:00 EST, Tablet, [facility], Partial fill upon patient [...] each, 11 Refills, Maintenance, 11/28/23 8:27:00 EDT, [facility]ORE 43361, 178, cm, 11/17/23 10:55:00 EDT, Height, 113, kg, 11/17/23 10:55:00 EDT,Dry Weight Start Date: 11/28/23 Status: Ordered zolpidem 10 mg oral tablet See Instructions, TAKE 1 TABLET BY MOUTH AT BEDTIME NEEDED 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 AURABINDO BURNER TENDER (Rx order must be sent to pharmacy [...] Personnel Name: Yaima Brizuela MD Position: [facility] Physician - Primary Care Member Role: PCP Address: Address: [address] [place] [address]- Care Team Related Persons Name: AISHA ESTEVES Address: home [address] [place] [address] Name: CECE ESTEVES Address: [place] [address] Name: CECE NUÑEZ Address: home [address] [place] [address]
--- OUTSIDE RECORDS SUMMARY | 2024-03-27 15:08 | XMS_ITS | Continuity of Care Document ---
Author Organization [facility] Address [address] [place] [address]- Care Team Providers Care Ampoule Inspector Name Role Phone Chata HUGHES, Yaima Reed Primary Care Physician [phone] Encounter [facility] [place] Date(s): 05/24/22 - 06/23/[address] [address]- Attending Physician: Jason Gonzalez Admitting Physician: Jason Gonzalez Referring Physician: AdmtrJason Allergies, Adverse Reactions, Alerts Substance Reaction Severity Status terazosin DIZZINESS Active Glutens Active Xolair anaphylaxis Active Immunizations Given and Recorded Vaccine Date Status Refusal Reason [id number] 12y+ bivalent booster vax 03/26/22 Recorded SARS-CoV-2 [...] Refills, Soft Stop, 10/25/19 11:51:00 EDT, Shampoo, [facility]/pharmacy #[id number], 1 application Topically Daily, 113.6, [...] 9:43:00 EDT Start Date: 12/04/19 Status: Ordered triamcinolone 0.1% topical cream 1 application, Topically, 3 times a day, for 14 days, # 60 Gm, 0 Refills, Acute 07/01/22 12:02:00 EST, 06/17/22 12:02:00 EST, Cream, [facility]/pharmacy #[id number], Partial fill upon patient request if the prescription is for a schedule II opioid drug., 1 applica... Start Date: 06/17/22 Stop Date: 07/01/22 Status: Ordered Vitamin B12 = 5,000 mcg, [...] MOUTH AT BEDTIME NEEDED 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 AURABINDO HAND POLISHER, # 30 tablet, 5 Refills, Maintenance, 03/05/22 11:51:00 EDT, [id number], AURABINDO HAND POLISHER ONLY PLEASE, 177.8, cm, 03/05/22 11:17:00 EDT,... [...] Team Personnel Name: Yaima Brizuela MD Position: [facility] Primary Care Physician Member Role: PCP Address: Address: [address] [place] [address]- Care Team Related Persons Name: AISHA ESTEVES Address: home [address] [address] Name: CECE ESTEVES Name: CECE NUÑEZ Address: home [address] [place] [address]
--- OUTSIDE RECORDS SUMMARY | 2024-03-27 15:08 | XMS_ITS | Continuity of Care Document ---
Author Organization [facility] Address [address] [place] [address]- Care Team Providers Care Service Desk Specialist Name Role Phone Yaima Brizuela MD Primary Care Physician [place] [facility] [place] Date(s): 10/05/21 - 11/04/21 [facility] [address] [place] [address]- Attending Physician: Jason Gonzalez Admitting Physician: Jason Gonzalez Referring Physician: Jason Gonzalez Allergies, Adverse Reactions, Alerts Substance Reaction Severity [...] 3 Refills, Maintenance, 12/09/20 11:35:00 EDT, Tablet, [facility]/pharmacy #[id number], 179, cm, 11/27/20 14:03:00 EDT, Height, [...] 30 tablet, 5 Refills,Maintenance, 08/06/21 14:06:00 EST, [facility] # 302, 177.8, cm, 08/06/21 11:00:00 EST, Height, 116.3, kg, 07/13/21 12:56:00 EST, Dry Weight Start Date: 08/06/21 Status: Ordered zolpidem 10 mg oral tablet See Instructions, TAKE ONE TABLET BY MOUTH AT BEDTIME NEEDED 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, # 30 tablet, 5 Refills, Maintenance, 02/17/21 15:40:00 EDT, [facility] # 302, 179, cm, 02/12/21 11:02:00 [...]
--- OUTSIDE RECORDS SUMMARY | 2024-03-27 15:08 | XMS_ITS | Continuity of Care Document ---
Author Organization [facility] Address [address] [place] [address]- Care Team Providers Care Foster Care Therapist Name Role Phone Chata HUGHES, Yaima Reed Primary Care Physician [place] [facility] [place](s): 12/30/21 - 01/29/22 [facility] [address] [place] [address]- Allergies, Adverse Reactions, Alerts Substance Reaction Severity [...] Refills, Soft Stop, 10/25/19 11:51:00 EDT, Shampoo, [facility]/pharmacy #0859, 1 application Topically Daily, [...] MOUTH AT BEDTIME NEEDED 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 AURABINDO GUIDANCE SECRETARY, # 30 tablet, 5 Refills, Maintenance, 11/25/21 16:15:00 EDT, [facility] #[id number], AURABINDO GUIDANCE SECRETARY ONLY PLEASE, 177.8, cm, 11/20/21 14:05... Start [...] 100 in lifetime) entered on: 05/14/21 Sex Care Team Personnel Name: Yaima Brizuela MD Address: [address] [place] [address]
--- OUTSIDE RECORDS SUMMARY | 2024-03-27 15:08 | XMS_ITS | Continuity of Care Document ---
Author Organization [facility] Address [address] [place] [address]- Care Team Providers Care Pipe Organ Builder Name Role Phone Yaima Brizuela MD Primary Care Physician En[place] [facility] [place] Date(s): 02/10/22 - 03/12/22 [facility] [address] [place], [place] [address] Allergies, Adverse Reactions, Alerts Substance Reaction [...] 15:26:00 EDT Start Date: 12/18/19 Status: Ordered Folic Acid = 100 mcg, [...] opioid drug. Start Date: 11/20/21 Status: Ordered Qulipta 30 mg oral tablet TAKE 1 TABLET BY MOUTH ONCE A DAY FOR MIGRAINE PREVENTION Start Date: 03/05/22 Status: Ordered Tessalon Perles = 100 mg, [...] MOUTH AT BEDTIME NEEDED 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 AURABINDO NEWS INTERN, # 30 tablet, 5 Refills, Maintenance, 03/05/22 11:51:00 EDT, [facility]/pharmacy #[id number], AURABINDO NEWS INTERN ONLY PLEASE, 177.8, cm, 03/05/22 11:17:00 EDT,... [...] cell activation Confirmed Active Migraine Confirmed Active Obese class II Confirmed Active Recurrent UTI Confirmed Active Sacroiliac joint pain Confirmed Active Social History Social History Type Response Smoking Status Never (less than 100 in lifetime) entered on: 05/14/21 Sex Patient Care team information Personnel Name: Yaima Brizuela MD Address: Address: [address] [place] [address]
--- OUTSIDE RECORDS SUMMARY | 2024-03-27 15:08 | XMS_ITS | Continuity of Care Document ---
Author Organization [facility] Address [address] [place] [address]- Care Team Providers Care Trench Digger Helper Name Role Phone Yaima Brizuela MD Primary Care Physician [phone] [facility] [place] Date(s): 04/14/20 - 05/14/20 [facility] [address] [place], [place] [address] Allergies, Adverse [...] Soft Stop, 10/25/19 11:51:00 EDT, Shampoo, [facility]/pharmacy #[id number], 1 application Topically Daily, 113.6, [...] Stop 03/02/21 12:22:00 EDT, 05/06/20 12:22:00 EST, [facility] # 302, 1 tablet... Start [...] Refills, Maintenance, 10/10/19 11:17:00 EDT, Tablet, [facility]/pharmacy #[id number], 113.6, kg, 01/22/19 15:29:00 EDT, [...] Acute 11/20/20 15:45:00 EDT, 11/21/19 15:42:00 EDT, [facility] # 302, 113.6, kg, 01/22/19 15:29:00 EDT, Dry Weight Start Date: 11/21/19 Stop Date: 11/20/20 Status: Ordered zolpidem 10 mg oral tablet See Instructions, TAKE ONE TABLET BY MOUTH AT BEDTIME NEEDED 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, # 30 tablet, 3 Refills, Maintenance, 04/21/20 17:29:00 EST, [facility] # 302, 179, cm, 04/07/20 11:04:00 [...]
--- OUTSIDE RECORDS SUMMARY | 2024-03-27 15:08 | XMS_ITS | Continuity of Care Document ---
Author Organization [facility] Address [address] [place] [address]- Care Team Providers Care Campaign Assistant Name Role Phone Chata HUGHES, Yaima Reed Primary Care Physician En[place] [facility] [place] Date(s): 06/07/23 - 07/07/23 [facility] [address] [place] [address]- Allergies, Adverse Reactions, Alerts Substance Reaction Severity Status terazosin DIZZINESS Active Glutens Active Xolair anaphylaxis Active Immunizations Given and Recorded Vaccine Date Status Refusal Reason SARS-CoV-2(COVID-19)mRNA-LNP vac([id number]) 03/18/23 Recorded [id number] 12y+ bivalent booster vax 03/26/22 Recorded SARS-CoV-2 (COVID-19) mRNA BNT-162b2 vac 1 06/25/21 Recorded SARS-CoV-2 (COVID-19) mRNA BNT-162b2 vac 01/03/21 Recorded SARS-CoV-2 (COVID-19) mRNA BNT-162b2 vac 12/13/20 Recorded 1Result Comment: 3rd dose Medications candesartan 4 mg oral tablet 1/2 TO 1 TABLET, By Mouth, Daily, # 90 tablet, 1 Refills, Maintenance, 03/14/23 6:44:00 EDT, [facility], 178, cm, 01/24/23 15:44:00 EDT, Height, 109.5, [...] 1 Refills, Maintenance, 08/25/22 15:57:00 EDT, Solution, [facility]/pharmacy #[id number], Partial fill upon patient [...] MOUTH AT BEDTIME NEEDED 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 AURABINDO REHANGER, # 30 tablet, 5 Refills, Maintenance, 02/22/23 13:51:00 EDT, [id number], AURABINDO REHANGER ONLY PLEASE, 178, cm, 01/24/23 15:44:00 EDT, [...] Team Personnel Name: Yaima Brizuela MD Position: [facility] Physician - Primary Care Member Role: PCP Address: Address: [address] [place] [address]- Care Team Related Persons Name: AISHA ESTEVES Address: home [address] [place] [address] Name: CCEE ESTEVES Address: [place] [address] Name: CECE NUÑEZ Address: home [address] [place] [id number]
--- OUTSIDE RECORDS SUMMARY | 2024-03-27 15:08 | XMS_ITS | Continuity of Care Document ---
Author Organization [facility] Address [address] [place] [address]- Care Team Providers Care Fruit Grower Name Role Phone Chata HUGHES, Yaima Reed Primary Care Physician Encounter [facility] Date(s): 02/19/21 - 03/21/21 [facility] [address] [place], [place] [address] Allergies, Adverse Reactions, Alerts Substance Reaction Severity [...] 56 tablet, 0 Refills, Acute, 08/20/20 8:36:00EDT, [facility] 66529, 179, cm, 07/18/20 14:54:00 EST, Height, 113.6, [...] Soft Stop, 10/25/19 11:51:00 EDT, Shampoo, [facility]/pharmacy #0859, 1 application Topically Daily, [...] Refills, Maintenance, 12/09/20 11:35:00 EDT, Tablet, [facility]/pharmacy #0859, 179, cm, 11/27/20 14:03:00 EDT, Height, 121.1, kg, 10/22/20 14:46:00 EDT, Dry Weight Start Date: 12/09/20 Status: Ordered rizatriptan 5 mg oral tablet 1 tablet = 5 mg, By Mouth, Daily, PRN for migraine headache, may repeat dose every 2 hours up to a maximum of 3, # 30 tablet, 5 Refills, Maintenance, 10/09/20 16:46:00 EDT, Tablet, [facility]/pharmacy #0859, Partial fill upon patient [...] tablet, 5 Refills, Maintenance, 02/17/21 15:40:00 EDT, [facility] # [facility], 179, cm, 02/12/21 11:02:00 [...]
--- OUTSIDE RECORDS SUMMARY | 2024-03-27 15:08 | XMS_ITS | Continuity of Care Document ---
Author Organization [facility] Address [address] [place] [address]- Care Team Providers Care Oven Operator Name Role Phone Yaima Brizuela MD Primary Care Physician [phone] Encounter [facility] [place] Date(s): 04/28/20 - 05/28/20 [facility] [address] [place], [place] [address] Allergies, Adverse Reactions, Alerts Substance [...] 10/25/19 11:51:00 EDT, Shampoo, [facility]/pharmacy #0859, 1 application Topically Daily, 113.6, kg, [...] Refills, Maintenance, 10/10/19 11:17:00 EDT, Tablet, [facility]/pharmacy #0859, 113.6, kg, 01/22/19 15:29:00 EDT, Dry [...] Acute 11/20/20 15:45:00 EDT, 11/21/19 15:42:00 EDT, [facility] # 302, 113.6, kg, 01/22/19 15:29:00 EDT, Dry Weight Start Date: 11/21/19 Stop Date: 11/20/20 Status: Ordered zolpidem 10 mg oral tablet See Instructions, TAKE ONE TABLET BY MOUTH AT BEDTIME NEEDED 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, # 30 tablet, 3 Refills, Maintenance, 04/21/20 17:29:00 EST, [facility] # 302, 179, cm, 04/07/20 11:04:00 [...]
--- OUTSIDE RECORDS SUMMARY | 2024-03-27 15:08 | XMS_ITS | Continuity of Care Document ---
Author Organization [facility] Address [address] [place] [address]- Care Team Providers Care Expeller Operator Name Role Phone Chata HUGHES, Yaima Reed Primary Care Physician [phone] [facility] [place] Date(s): 12/12/20 - 01/11/21 [facility] [address] [place], [place] [address] Allergies, Adverse Reactions, Alerts [...] tablet, 0 Refills, Acute, 08/20/20 8:36:00EDT, [facility] [address]194, 179, cm, 07/18/20 14:54:00 EST, Height, 113.6, [...] Stop 03/02/21 12:22:00 EDT, 05/06/20 12:22:00 [facility] # 302, 1 [...] Refills, Maintenance, 12/09/20 11:35:00 EDT, Tablet, [facility]/pharmacy #0859, 179, cm, 11/27/20 14:03:00 EDT, Height, 121.1, kg, 10/22/20 14:46:00 EDT, Dry Weight Start Date: 12/09/20 Status: Ordered rizatriptan 5 mg oral tablet 1 tablet = 5 mg, By Mouth, Daily, PRN for migraine headache, may repeat dose every 2 hours up to a maximum of 3, # 30 tablet, 5 Refills, Maintenance, 10/09/20 16:46:00 EDT, Tablet, [facility]/pharmacy #[id number], Partial fill upon patient [...] tablet, 5 Refills, Maintenance, 07/25/20 12:12:00 EST, [facility] # 302, 179, cm, 07/18/20 14:54:00 [...]
--- OUTSIDE RECORDS SUMMARY | 2024-03-27 15:08 | XMS_ITS | Continuity of Care Document ---
Author Organization [facility] Address [address] [place] [address]- Care Team Providers Care Parts Classifier Name Role Phone Chata HUGHES, Yaima Reed Primary Care Physician [phone] Encounter [facility] Date(s): 10/05/21 - 10/12/21 [facility] [address] [place] [address]- Encounter Diagnosis Tonsil stone(Discharge Diagnosis) - 10/05/21 Attending Physician: Radha SIGHTER, Emperatriz Allergies, Adverse Reactions, Alerts Substance Reaction Severity [...] Refills, Soft Stop, 10/25/19 11:51:00 EDT, Shampoo, [facility]/pharmacy #[id number], 1 application Topically Daily, 113.6, kg, [...] 3 Refills, Maintenance, 12/09/20 11:35:00 EDT, Tablet, [facility]/pharmacy #[id number], 179, cm, 11/27/20 14:03:00 EDT, Height, [...] 30 tablet, 5 Refills,Maintenance, 08/06/21 14:06:00 EST, [facility] # 302, 177.8, cm, 08/06/21 11:00:00 EST, Height, 116.3, kg, 07/13/21 12:56:00 EST, Dry Weight Start Date: 08/06/21 Status: Ordered zolpidem 10 mg oral tablet See Instructions, TAKE ONE TABLET BY MOUTH AT BEDTIME NEEDED 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, # 30 tablet, 5 Refills, Maintenance, 02/17/21 15:40:00 EDT, [facility] # 302, 179, cm, 02/12/21 11:02:00 [...] Dates Health Status Cl inical Service Informant Tonsil stone Discharge Diagnosis 10/05/21 Vital Signs Most recent to oldest [Reference Range]: 1 Height 177.8 cm (10/05/21 4:13 PM) Weight 115.9 kg (10/05/21 4:13 PM) Oxygen Saturation [94-100 %] 99 % (10/05/21 4:13 PM) Pulse Rate [55-90 bpm] 83 bpm (10/05/21 4:13 PM) Body Mass Index [18.5-24.99] 36.66 *>HHI* (10/05/21 4:13 PM) Blood Pressure [90-138/55-84 mm Hg] 112/ 74mm Hg (10/05/21 4:13 PM) Mode of Delivery (Oxygen) Room air (10/05/21 4:13 PM) Blood pressure sites Arm, left (10/05/21 4:13 PM) Weight Obtained Via Standing scale (10/05/21 4:13 PM) Social History Social History Type Response Smoking Status Never (less than 100 in lifetime) entered on: 05/14/21 Sex
--- OUTSIDE RECORDS SUMMARY | 2024-03-27 15:08 | XMS_ITS | Continuity of Care Document ---
Author Organization [facility] Address [address] [place] [address]- Care Team Providers Care Sales Research Analyst Name Role Phone Yaima Brizuela MD Primary Care Physician [place] [facility] 03/05/22 - 03/12/22 [facility] [address] [place], [place] [address] Attending Physician: Yaima Brizuela MD Allergies, Adverse [...] MOUTH AT BEDTIME NEEDED 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 [employer], # 30 tablet, 5 Refills, Maintenance, 03/05/22 11:51:00 EDT, [facility]/pharmacy #[id number], [employer] ONLY PLEASE, 177.8, cm, 03/05/22 11:17:00 EDT,... [...] Confirmed Active Sacroiliac joint pain Confirmed Active Vital Signs Most recent to oldest [Reference Range]: 1 Height 177.8 cm (03/05/22 11:17 AM) Weight 112.2 kg (03/05/22 11:17 AM) Oxygen Saturation [94-100 %] 98 % (03/05/22 11:17 AM) Pulse Rate [55-90 bpm] 93 bpm *H* (03/05/22 11:17 AM) Body Mass Index [18.5-24.99 kg/m2] 35.49 kg/m2 *>HHI* (03/05/22 11:17 AM) Blood Pressure [90-138/55-84 mm Hg] 108/ 68mm Hg (03/05/22 11:17 AM) Respiratory Rate [16-30 br/min] 16 br/mi n (03/05/22 11:17 AM) Temperature [96.8-100.4 DegF] 98.8 DegF (03/05/22 11:17 AM) Mode of Delivery (Oxygen) Room air (03/05/22 11:17 AM) Blood pressure sites Arm, left (03/05/22 11:17 AM) Temperature Route Temporal (03/05/22 11:17 AM) Weight Obtained Via Standing scale (03/05/22 11:17 AM) Social History Social History Type Response Smoking Status Never (less than 100 in lifetime) entered on: 05/14/21 Sex Patient Care team information Personnel Name: Yaima Brizuela MD Address: Address: [address] [place] [address]
--- OUTSIDE RECORDS SUMMARY | 2024-03-27 15:08 | XMS_ITS | Continuity of Care Document ---
Author Organization [facility] Address [address] [place] [address]- Care Team Providers Care Sql Programmer Name Role Phone Yaima Brizuela MD Primary Care Physician Encounter [facility] [place] Date(s): 08/08/20 - 08/15/20 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 Start Date: 07/30/20 Stop Date: 08/27/20 Status: Ordered Folic Acid = 100 mcg, [...] Stop 03/02/21 12:22:00 EDT, 05/06/20 12:22:00 [facility] # 302, 1 tablet... [...] Refills, Maintenance, 10/10/19 11:17:00 EDT, Tablet, [facility]/pharmacy #[id number], 113.6, kg, 01/22/19 15:29:00 EDT, [...] Acute 11/20/20 15:45:00 EDT, 11/21/19 15:42:00 EDT, [facility] # 302, 113.6, kg, 01/22/19 15:29:00 EDT, Dry Weight Start Date: 11/21/19 Stop Date: 11/20/20 Status: Ordered zolpidem 10 mg oral tablet See Instructions, TAKE ONE TABLET BY MOUTH AT BEDTIME NEEDED 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, # 30 tablet, 5 Refills, Maintenance, 07/25/20 12:12:00 EST, [facility] # 302, 179, cm, 07/18/20 14:54:00 [...] Effective Dates Health Status Clinical Service Informant Mast cell activation Discharge Diagnosis 08/08/20 Lyme disease Discharge Diagnosis 08/08/20 Insomnia Discharge Diagnosis 08/08/20 Amos-Danlos syndrome Discharge Diagnosis 08/08/20 Endometriosis Discharge Diagnosis 08/08/20
--- OUTSIDE RECORDS SUMMARY | 2024-03-27 15:08 | XMS_ITS | Continuity of Care Document ---
Author Organization [facility] Address [address] [place] [address]- Care Team Providers Care Redipper Name Role Phone Yaima Brizuela MD Primary Care Physician Encounter [facility] Date(s): 08/13/20 - 09/12/20 [facility] [address] [place], [place] [address] Allergies, Adverse Reactions, Alerts Substance [...] 8:36:00EDT, [facility] [id number], 179, cm, 07/18/20 14:54:00 EST, Height, 113.6, [...] Stop 03/02/21 12:22:00 EDT, 05/06/20 12:22:00 EST, [facility] # 302, 1 tablet... Start Date: [...] Acute 11/20/20 15:45:00 EDT, 11/21/19 15:42:00 EDT, [facility] # 302, 113.6, kg, 01/22/19 15:29:00 EDT, Dry Weight Start Date: 11/21/19 Stop Date: 11/20/20 Status: Ordered zolpidem 10 mg oral tablet See Instructions, TAKE ONE TABLET BY MOUTH AT BEDTIME NEEDED 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, # 30 tablet, 5 Refills, Maintenance, 07/25/20 12:12:00 EST, [facility] # 302, 179, cm, 07/18/20 14:54:00 EST, Height, 113.6, kg, 01/22/19 15:29:00 EDT, Dry Weight Start Date: 07/25/20 Status: Ordered zolpidem 10 mg oral tablet See Instructions, TAKE ONE TABLET BY MOUTH AT BEDTIME NEEDED 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, # 30 tablet, 5 Refills, Maintenance, 07/24/20 13:33:00 EST, [facility]/pharmacy #[id number], 179, cm, 07/18/20 14:54:00 EST, [...]
--- OUTSIDE RECORDS SUMMARY | 2024-03-27 15:09 | XMS_ITS | Continuity of Care Document ---
Author Organization [facility] Address [address] [place] [address]- Care Team Providers Care Tin Roofer Name Role Phone Yaima Brizuela MD Primary Care Physician [phone] [place] [facility] 06/09[place]21 - 07/09/21 [facility] [address] [place] [address]- Attending Physician: Jason Gonzalez Admitting Physician: Jason Gonzalez Referring Physician: Jason Gonzalez Referring Physician: Karla Benito Allergies, Adverse Reactions, Alerts Substance Reaction Severity Status Glutens Active Xolair anaphylaxis Active Immunizations Given and Recorded Vaccine Date Status Refusal Reason SARS-CoV-2 (COVID-19) mRNA BNT-162b2 vac 1 06/25/21 Recorded 1Result Comment: 3rd dose Medications acetaminophen/butalbital/caffeine 325 mg-50 mg-40 mg oral [...] opioid drug. Start Date: 04/21/21 Status: Ordered 06/25 oral tablet 0 Refills, Maintenance, 05/14/21 11:12:00 EST, Partial fill upon patient request if the prescription is for a schedule II opioid drug. Start Date: 05/14/21 Status: Ordered ketoconazole 2% topical shampoo 1 application, Topically, Daily, # 120 mL, 0 Refills, Soft Stop, 10/25/19 11:51:00 EDT, Shampoo, [facility]/pharmacy #[id number], 1 application Topically Daily, 113.6, kg, [...] Maintenance, 12/09/20 11:35:00 EDT, Tablet, [facility]/pharmacy #[id number], 179, cm, 11/27/20 14:03:00 EDT, Height, [...] tablet, 5 Refills, Maintenance, 02/17/21 15:40:00 EDT, [facility] # 302, 179, cm, 02/12/21 11:02:00 [...]
--- OUTSIDE RECORDS SUMMARY | 2024-03-27 15:09 | XMS_ITS | Continuity of Care Document ---
Author Organization [facility] Address [address] [place] [address]- Care Team Providers Care Cdl Company Driver Name Role Phone Yaima Brizuela MD Primary Care Physician [phone] Encounter [facility] Date(s): 10/10/20 - 10/17/20 [facility] [address] [place] [address]- Encounter Diagnosis Otitis media(Discharge Diagnosis) - 10/10/20 Attending Physician: Tushar Marrufo MD Referring Physician: Yaima Brizuela MD Allergies, Adverse Reactions, [...] 0 Refills, Maintenance, 10/07/20 8:17:00 EDT, Tablet, [facility]/pharmacy #[id number], Partial fill upon [...] 56 tablet, 0 Refills, Acute, 08/20/20 8:36:00EDT, [facility] 16444, 179, cm, 07/18/20 14:54:00 EST, Height, 113.6, [...] Refills, Soft Stop, 10/25/19 11:51:00 EDT, Shampoo, [facility]/pharmacy #[id number], 1 application Topically [...] Physician Stop 03/02/21 12:22:00 EDT, 05/06/20 12:22:00 [facility], [facility] # 302, 1 tablet... Start Date: [...] 3 Refills, Maintenance, 10/10/19 11:17:00 EDT, Tablet, [facility]/pharmacy #[id number], 113.6, kg, 01/22/19 15:29:00 EDT, Dry Weight Start Date: 10/10/19 Status: Ordered rizatriptan 5 mg oral tablet 1 tablet = 5 mg, By Mouth, Daily, PRN for migraine headache, may repeat dose every 2 hours up to a maximum of 3, # 30 tablet, 5 Refills, Maintenance, 10/09/20 16:46:00 EDT, Tablet, [facility]/pharmacy #[id number], Partial fill upon [...] 15:45:00 EDT, 11/21/19 15:42:00 EDT, [facility] # 302, 113.6, kg, 01/22/19 15:29:00 EDT, Dry Weight Start Date: 11/21/19 Stop Date: 11/20/20 Status: Ordered zolpidem 10 mg oral tablet See Instructions, TAKE ONE TABLET BY MOUTH AT BEDTIME NEEDED 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, # 30 tablet, 5 Refills, Maintenance, 07/25/20 12:12:00 EST, [facility] # 302, 179, cm, 07/18/20 14:54:00 EST, Height, 113.6, kg, 01/22/19 15:29:00 EDT, Dry Weight Start Date: 07/25/20 Status: Ordered zolpidem 10 mg oral tablet See Instructions, TAKE ONE TABLET BY MOUTH AT BEDTIME NEEDED 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, # 30 tablet, 5 Refills, Maintenance, 07/24/20 13:33:00 EST, [facility]/pharmacy #[id number], 179, cm, 07/18/20 [...] Dates Health Status Cl inical Service Informant Otitis media Discharge Diagnosis 10/10/20 Vital Signs Most recent to oldest [Reference Range]: 1 Height 179 cm (10/10/20 10:40 AM) Oxygen Saturation [94-100 %] 99 % (10/10/20 10:40 AM) Pulse Rate [55-90 bpm] 86 bpm (10/10/20 10:40 AM) Blood Pressure [90-138/55-84 mm Hg] 127/ 78mm Hg (10/10/20 10:40 AM) Respiratory Rate [16-30 br/min] 18 br/mi n (10/10/20 10:40 AM) Temperature [96.8-100.4 DegF] 96.6 DegF *L* (10/10/20 10:40 AM) Mode of Delivery (Oxygen) Room air (10/10/20 10:40 AM) Blood pressure sites Arm, left (10/10/20 10:40 AM) Temperature Route Temporal (10/10/20 10:40 AM)
--- OUTSIDE RECORDS SUMMARY | 2024-03-27 15:09 | XMS_ITS | Continuity of Care Document ---
Author Organization [facility] Address [address] [place] [address]- Care Team Providers Care Director Decision Support Name Role Phone Yaima Brizuela MD Primary Care Physician Encounter [facility] Date(s): 08/31/22 - 09/30/22 [facility] [address] [place], [place] [address] Allergies, Adverse Reactions, Alerts Substance Reaction Severity Status terazosin DIZZINESS Active Glutens Active Xolair anaphylaxis Active Immunizations Given and Recorded Vaccine Date Status Refusal Reason [id number] 12y+ bivalent booster vax 03/26/22 Recorded SARS-CoV-2 [...] MOUTH AT BEDTIME NEEDED 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 [employer], # 30 tablet, 5 Refills, Maintenance, 08/23/22 15:12:00 EDT, [facility] #[id number], [employer] ONLY PLEASE, 177.8, cm, 06/17/22 10:52:00 EST,... [...] Team Personnel Name: Yaima Brizuela MD Position: [facility] Primary Care Physician Member Role: PCP Address: Address: [address] [place] [address]- Care Team Related Persons Name: AISHA ESTEVES Address: home [address] [address] Name: CECE ESTEVES Name: CECE NUÑEZ Address: home [address] [place] [address]
--- OUTSIDE RECORDS SUMMARY | 2024-03-27 15:09 | XMS_ITS | Continuity of Care Document ---
Author Organization [facility] Address [address] [place] [address]- Care Team Providers Care Records Custodian Name Role Phone Yaima Brizuela MD Primary Care Physician [phone] Encounter [facility] [place] Date(s): 11/09/21 - 12/09/21 [facility] [address] [place], [place] [address] Allergies, Adverse Reactions, Alerts Substance [...] Refills, Soft Stop, 10/25/19 11:51:00 EDT, Shampoo, [facility]/pharmacy #[id number], 1 application Topically Daily, 113.6, [...] MOUTH AT BEDTIME NEEDED 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 [employer], # 30 tablet, 5 Refills, Maintenance, 11/25/21 16:15:00 EDT, [facility] #[id number], [employer] ONLY PLEASE, 177.8, cm, 11/20/21 14:05... Start [...]
--- OUTSIDE RECORDS SUMMARY | 2024-03-27 15:09 | XMS_ITS | Continuity of Care Document ---
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 Attending Physician: Alistair HUGHES [facility] Allergies, Adverse Reactions, Alerts Substance Reaction Severity Status terazosin DIZZINESS Active Glutens Active Xolair anaphylaxis Active Immunizations Given and Recorded Vaccine Date Status Refusal Reason SARS-CoV-2(COVID-19)mRNA-LNP vac([id number]) 03/18/23 Recorded [id number] 12y+ bivalent booster vax 03/26/22 Recorded SARS-CoV-2 (COVID-19) mRNA BNT-162b2 vac 1 06/25/21 Recorded SARS-CoV-2 (COVID-19) mRNA BNT-162b2 vac 01/03/21 Recorded SARS-CoV-2 (COVID-19) mRNA BNT-162b2 vac 12/13/20 Recorded 1Result Comment: 3rd dose Medications candesartan 4 mg oral tablet 1/2 TO 1 TABLET, By Mouth, Daily, # 90 tablet, 1 Refills, Maintenance, 03/14/23 6:44:00 EDT, [facility] STORE [id number], 178, cm, 01/24/23 15:44:00 EDT, Height, 109.5, [...] Refills, Maintenance, 08/25/22 15:57:00 EDT, Solution, [facility]/pharmacy #[id number], Partial fill upon [...] Refills, Maintenance, 08/03/23 13:17:00 EST, Tablet, [facility]/pharmacy #[id number], Partial fill upon [...] Refills, Maintenance, 11/28/23 8:27:00 EDT, [id number], 178, cm, 11/17/23 10:55:00 EDT, Height, 113, kg, 11/17/23 10:55:00 EDT,Dry Weight Start Date: 11/28/23 Status: Ordered zolpidem 10 mg oral tablet See Instructions, TAKE 1 TABLET BY MOUTH AT BEDTIME NEEDED 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, # 30 tablet, 5 Refills, Maintenance, 08/25/23 12:51:00 EDT, [id number], 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 ONLY PLEASE, 178, cm, 08/11/23 10:59:00 [...] joint pain Confirmed Active Vertigo Confirmed Active Diagnosis Diagnosis Type Effective Dates Health Status Clinical Service Informant Episode of dizziness Discharge Diagnosis 01/09/24 Chronic headache Discharge Diagnosis 01/09/24 Paresthesias in right hand Discharge Diagnosis 01/09/24 Amos-Danlos syndrome Discharge Diagnosis 01/09/24 Vital Signs Most recent to oldest [Reference Range]: 1 Height 178 cm (01/09/24 3:03 PM) Weight 113.3 kg (01/09/24 3:03 PM) Oxygen Saturation [94-100 %] 98 % (01/09/24 3:03 PM) Pulse Rate [55-90 bpm] 81 bpm (01/09/24 3:03 PM) Body Mass Index [18.5-24.99 kg/m2] 35.76 kg/m2 *>HHI* (01/09/24 3:03 PM) Blood Pressure [90-138/55-84 mm Hg] 110/ 71mm Hg (01/09/24 3:03 PM) Mode of Delivery (Oxygen) Room air (01/09/24 3:03 PM) Blood pressure sites Arm, right (01/09/24 3:03 PM) Dry Weight 113.3 kg (01/09/24 3:03 PM) Weight Obtained Via Standing scale (01/09/24 3:03 PM) Dry Weight Obtained Via Standing scale (01/09/24 3:03 PM) Social History Social History Type Response Smoking Status Never (less than 100 in lifetime) entered on: 05/14/21 Sex Note * Herminia Crain: PERFORM Event Display: Patient Education/Instruction Authored Date: Ambulatory Adult Visit Summary [facility] [address] [place] [address] Name: NITA ESTEVES : 1985?? Visit: 01/09/2024 14:57?? Ambulatory Visit Instructions ?? Your Care Team Primary Care Provider Yaima Brizuela MD? This Visit Provider Ellie Sainz MD Vitals Signs Pulse Rate: 81 bpm Height: 178 cm Systolic Blood Pressure: 110 mm Hg Weight: 113.3 kg Diastolic Blood Pressure: 71 mm Hg Body Mass Index:??35.76 kg/m2??Critical Oxygen Saturation: 98 % Body surface area: 2.37 What to do next Scheduled Follow-Up Appointments Tuesday 10:00 AM EDT ?? With: Brianna De Los Santos Where: [facility] [address] [place] [address]- Status: Pending 2023 11:00 AM EDT ?? With: Yaima Brizuela MD Where: [facility] [address] [place] [address]- Status: Pending Future Orders Comprehensive Metabolic Panel - Once, *Est. 08/11/23, Order for Today?? TSH - Once, *Est. 08/11/23, Order for Today?? T3 Total - Once, *Est. 08/11/23, Order for Today?? T3 Free (Free T3) - Once, *Est. 08/11/23, Order for Today?? T3 Reverse (Reverse T3) - Once, *Est. 08/11/23, Order for Today?? Vitamin D 25 Hydroxy Level - Once, *Est. 08/11/23, Order for Today?? CBC w/ Differential - Once, *Est. 08/11/23, Order for Today?? Thyroglobulin Ab - Once, *Est. 11/17/23, Order for Today?? Thyroid Antimicrosomal Ab (TPO Thyroperoxidase Antibodies) - Once, *Est. 11/17/23, Order for Today?? Free T4 - Routine, Once, 11/17/23 11:35:00 EDT, Order for Today, [facility], Blood?? Free T4 - Routine, Once, 12/28/23 14:39:00 EDT, Order for Today, [facility], Blood?? Medications The list below reflects the information in our records and provided by you today along with any changes made during this visit. Please continue your medications until treatment is completed or stopped by your provider. If this is different from the information you have or there are other questions,please contact the prescribing provider. What How Much When Instructions Unchanged Ascorbic Acid (Vitamin C 1000 mg oral tablet) 1 tab(s) Oral Twice a day Unchanged atogepant (Qulipta 30 mg oral tablet) 1 tab(s) Oral Daily Duration: 90 Days Unchanged Benzonatate (Tessalon Perles) 100 Milligram Oral 3 times a day Unchanged bifidobacterium-lactobacillus (Probiotic Formula) 1 capsule Oral Daily Unchanged Candesartan (candesartan 4 mg oral tablet) 1/2 TO 1 TABLET Oral Daily Unchanged Cetirizine (ZyrTEC 10 mg oral tablet) 2 tab(s) Oral Daily Unchanged Cholecalciferol (Vitamin D3 10,000 intl units oral capsule) 1 capsule Oral Every week Unchanged ciclesonide nasal (Zetonna 37 mcg/ inh nasal aerosol) See instructions USE 1 SPRAYS IN BOTH NARES DAILY ?? Unchanged Cranberry Unchanged Cyanocobalamin (Vitamin B12) 5,000 Microgram Unchanged Ethinyl Estradiol / Norethindrone (Junel oral tablet) Unchanged Fluconazole (fluconazole 150 mg oral tablet) 1 tab(s) Oral Daily Unchanged Folic Acid 100 Microgram Daily Unchanged HydrOXYzine (hydrOXYzine hydrochloride 25 mg oral tablet) 1 capsule Oral Daily at Bedtime as needed for for itching Duration: 10 Days Unchanged Ipratropium Nasal (ipratropium nasal 21 mcg/ inh spray) Unchanged Ketotifen Ophthalmic (ketotifen 0.025% ophthalmic solution) 1 Drops Both eyes Every 8 hours Unchanged Liothyronine (liothyronine 25 mcg oral tablet) See instructions TAKES 4 TABS BY Mouth Daily ?? Unchanged Loratadine (Claritin 10 mg oral tablet) 2 tab(s) Oral Daily Unchanged Miscellaneous Rx (D-mannose 2g daily) Unchanged Multivitamin (Vitamin B Complex oral tablet, extended release) Oral Daily Unchanged [place]-3 Polyunsaturated Fatty Acids (Fish Oil) Oral Unchanged Ondansetron (ondansetron 4 mg oral tablet, disintegrating) DISSOLVE 1 TABLET IN MOUTH EVERY 8 HOURS NEEDED FOR NAUSEA AND VOMITING (INS ONLY COVERS 1 DAILY) ?? Unchanged Phytonadione (Vitamin K1) 100mcg daily ?? 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 Medications and Immunizations Administered Medications Given During Visit No medications given during this visit.?? Allergies (NKA means No Known Allergies) Glutens Xolair??(anaphylaxis) terazosin??(DIZZINESS) Common Emergency Awareness Tips IS IT A STROKE? Act FAST and Check for these signs: FACE Does the face look uneven? ARM Does one arm drift down? SPEECH Does their speech sound strange? TIME Call at any sign of stroke ?? Heart Attack Signs Chest discomfort: Most heart attacks involve discomfort in the center of the chest and lasts more than a few minutes, or goes away and comes back. It can feel like uncomfortable pressure, squeezing, fullness or pain. Discomfort in upper body: Symptoms can include pain or discomfort in one or both arms, back, neck, jaw or stomach. Shortness of breath: With or without discomfort. Other signs: Breaking out in a cold sweat, nausea, or lightheaded. Remember, MINUTES DO MATTER. If you experience any of these heart attack warning signs, call to get immediate medical attention! ?? Smoking can increase your chances of developing chronic health problems and can cause harmful effects to other family members in your house. If you smoke, you are strongly encouraged to quit. Please call [employer] at [phone] or 1-669-287QVPN ([phone]) or log in to www.[email or web address] for referrals to smoking cessation programs. ?? The National Suicide Prevention Hotline is available 27/12 if you or someone you know needs to find a reason to keep living. By calling 0-584-478-[employer] (5871) you'll be connected to a skilled, trained counselor at a crisis center in your area. [facility] [employer] Portal You can view and manage your care through the patient portal or by using a health care marge of your choosing. [employer] is a website that allows you to securely view your medical information including your hospital discharge summary, office visit summaries, medications and follow-up visits. You can also request appointments, renew medications, and request access to your medical information using a health care marge of your choosing, or just ask a question. You can enroll at [email or web address] or register during your next office visit. [facility], in keeping with [facility] guidance, no longer requires face masks for staff, patientsor visitors in most situations. Similiar to time spent indoors at other locations, there is the chance that you were exposed to repiratory viruses during your time with us (such as flu or COVID-19). If you develop symptoms concerning for a viral respiratory infection, please seek testing (and treatment if indicated) from your medical provider or home test kit. ?? Disclaimer: The information provided is of a general nature and is intended to be used in conjunction with the recommendations and advice of your health care practitioner. Every effort has been made to ensure that the information provided is accurate and complete at the time it is provided to you however, as your needs change, or, as new information becomes available, different or additional instructions may be required. ?? If you have questions, please consult with your primary care provider or pharmacist, as appropriate. This information is not intended to serve as substitution for assessment and evaluation by a qualified health care provider. If you do not have a primary care provider, you may find a [facility] provider by calling [facility] [employer] [facility] at [phone]. Patient Care team information Care Team Personnel Name: Yaima Brizuela MD Position: [facility] Physician - Primary Care Member Role: PCP Address: Address: [address] [place] [address]- Care Team Related Persons Name: AISHA ESTEVES Address: home [address] [address] Name: CECE ESTEVES Address: [place] [address] Name: CECE NUÑEZ Address: home [address] [place] [address]
--- OUTSIDE RECORDS SUMMARY | 2024-03-27 15:09 | XMS_ITS | Continuity of Care Document ---
Author Organization [facility] Address [address] [place] [address]- Care Team Providers Care Newspaper Manager Name Role Phone Yaima Brizuela MD Primary Care Physician Encounter [facility] Date(s): 06/23/22 - 07/23/22 [facility] [address] [place], [place] [address] Allergies, Adverse Reactions, Alerts Substance Reaction Severity Status terazosin DIZZINESS Active Glutens Active Xolair anaphylaxis Active Immunizations Given and Recorded Vaccine Date Status Refusal Reason [id number] 12y+ bivalent booster vax 03/26/22 Recorded SARS-CoV-2 [...] MOUTH AT BEDTIME NEEDED 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 [...] Team Personnel Name: Yaima Brizuela MD Position: [facility] Primary Care Physician Member Role: PCP Address: Address: [address] [place] [address]- Care Team Related Persons Name: AISHA ESTEVES Address: home [address] [address] Name: CECE ESTEVES Name: CECE NUÑEZ Address: home [address] [place] [address]
--- OUTSIDE RECORDS SUMMARY | 2024-03-27 15:09 | XMS_ITS | Continuity of Care Document ---
Author Organization [facility] Address [address] [place] [address]- Care Team Providers Care Thread Inspector Name Role Phone Yaima Brizuela MD Primary Care Physician Encounter [facility] [place] Date(s): 11/09/21 - 12/09/21 [facility] [address] [place], [place] [address] Allergies, Adverse [...] Refills, Soft Stop, 10/25/19 11:51:00 EDT, Shampoo, [facility]/pharmacy #[id number], 1 application Topically Daily, [...] MOUTH AT BEDTIME NEEDED 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 AURABINDO HEAD OF RESEARCH & INSIGHTS, # 30 tablet, 5 Refills, Maintenance, 11/25/21 16:15:00 EDT, [email or web address] #[id number], AURABINDO HEAD OF RESEARCH & INSIGHTS ONLY PLEASE, 177.8, cm, 11/20/21 14:05... Start [...]
--- OUTSIDE RECORDS SUMMARY | 2024-03-27 15:09 | XMS_ITS | Continuity of Care Document ---
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 [...] Refills, Maintenance, 10/10/19 11:17:00 EDT, Tablet, [facility]/pharmacy #[id number], 113.6, kg, 01/22/19 15:29:00 [...] Acute 11/20/20 15:45:00 EDT, 11/21/19 15:42:00 EDT, [facility] # 302, 113.6, kg, 01/22/19 15:29:00 EDT, Dry Weight Start Date: 11/21/19 Stop Date: 11/20/20 Status: Ordered zolpidem 10 mg oral tablet See Instructions, TAKE ONE TABLET BY MOUTH AT BEDTIME NEEDED 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, # 30 tablet, 3 Refills, Maintenance, 04/21/20 17:29:00 EST, [facility] # 302, 179, cm, 04/07/20 11:04:00 [...] Clinical Service Informant Tommy's thyroiditis Discharge Diagnosis 05/15/20 Mast cell activation Discharge Diagnosis 05/15/20 Sacroiliac joint pain Discharge Diagnosis 05/15/20 Chronic headache Discharge Diagnosis 05/15/20
--- OUTSIDE RECORDS SUMMARY | 2024-03-27 15:09 | XMS_ITS | Continuity of Care Document ---
Author Organization [facility] Address [address] [place] [address]- Care Team Providers Care Exchange Specialist Name Role Phone Yaima Brizuela MD Primary Care Physician [place] [facility] [place]s): 11/11/20 - 12/11/20 [facility] [address] [place], [place] [address] Allergies, Adverse Reactions, Alerts Substance Reaction [...] 56 tablet, 0 Refills, Acute, 08/20/20 8:36:00EDT, [facility] STORE 63461, 179, cm, 07/18/20 14:54:00 EST, Height, 113.6, [...] Refills, Soft Stop, 10/25/19 11:51:00 EDT, Shampoo, [facility]/pharmacy #[id number], 1 application Topically Daily, [...] Stop 03/02/21 12:22:00 EDT, 05/06/20 12:22:00 RUST, [facility] # 302, 1 tablet... [...] 3 Refills, Maintenance, 12/09/20 11:35:00 EDT, Tablet, [facility]/pharmacy #[id number], 179, cm, 11/27/20 14:03:00 EDT, Height, 121.1, kg, 10/22/20 14:46:00 EDT, Dry Weight Start Date: 12/09/20 Status: Ordered rizatriptan 5 mg oral tablet 1 tablet = 5 mg, By Mouth, Daily, PRN for migraine headache, may repeat dose every 2 hours up to a maximum of 3, # 30 tablet, 5 Refills, Maintenance, 10/09/20 16:46:00 EDT, Tablet, [facility]/pharmacy #[id number], [...] tablet, 5 Refills, Maintenance, 07/25/20 12:12:00 EST, [facility] # [facility], 179, cm, 07/18/20 14:54:00 [...]
--- OUTSIDE RECORDS SUMMARY | 2024-03-27 15:09 | XMS_ITS | Continuity of Care Document ---
Author Organization [facility] Address [address] [place] [address]- Care Team Providers Care Head Of Digital Name Role Phone Yaima Brizuela MD Primary Care Physician [phone] Encounter [facility] Date(s): 05/19/20 - 06/18/20 [facility] [address] [place], [place] [address] Allergies, Adverse Reactions, Alerts Substance [...] 03/02/21 12:22:00 EDT, 05/06/20 12:22:00 EST, [facility] # [...] 06/29/20 14:53:00 EST, 05/29/20 14:53:00 EST, Tablet, [facility]/pharmacy #[id number], Partial fill upon patient request... Start [...] Acute 11/20/20 15:45:00 EDT, 11/21/19 15:42:00 EDT, [facility] # 302, 113.6, kg, 01/22/19 15:29:00 EDT, Dry Weight Start Date: 11/21/19 Stop Date: 11/20/20 Status: Ordered zolpidem 10 mg oral tablet See Instructions, TAKE ONE TABLET BY MOUTH AT BEDTIME NEEDED 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, # 30 tablet, 3 Refills, Maintenance, 04/21/20 17:29:00 EST, [facility] # 302, 179, cm, 04/07/20 11:04:00 [...]
--- OUTSIDE RECORDS SUMMARY | 2024-03-27 15:09 | XMS_ITS | Continuity of Care Document ---
Author Organization [facility] Address [address] [place] [address]- Care Team Providers Care Digital Production Artist Name Role Phone Chata HUGHES, Yaima Reed Primary Care Physician Encounter [facility] Date(s): 11/11/21 - 12/11/21 [facility] [address] [place] [address]- Allergies, Adverse Reactions, Alerts Substance Reaction Severity [...] Refills, Soft Stop, 10/25/19 11:51:00 EDT, Shampoo, [facility]/pharmacy #[id number], 1 application Topically Daily, [...] MOUTH AT BEDTIME NEEDED 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 Start [...]
--- OUTSIDE RECORDS SUMMARY | 2024-03-27 15:09 | XMS_ITS | Continuity of Care Document ---
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 Pharyngitis(Discharge Diagnosis) - 03/08/24 Carpal tunnel syndrome, bilateral(Discharge Diagnosis) - 03/08/24 Myofascial pain syndrome(Discharge Diagnosis) - 03/08/24 Attending Physician: Yaima Brizuela MD Allergies, Adverse Reactions, Alerts Substance Reaction Severity Status terazosin DIZZINESS Active Glutens Active Xolair anaphylaxis Active Immunizations Given and Recorded Vaccine Date Status Refusal Reason SARS-CoV-2(COVID-19)mRNA-LNP vac([id number]) 03/18/23 Recorded [id number] 12y+ bivalent booster vax 03/26/22 Recorded SARS-CoV-2 [...] Refills, Maintenance, 03/12/24 9:19:00 EDT, Table[facility], [id number], Partial fill upon patient request if... Start [...] Tablet Start Date: 03/05/19 Status: Ordered nystatin [id number] u/ml oral suspension 5 mL = 500,000 units, By Mouth, 4 times a day, for 7 days, swish and swallow, # 140 mL, 0 Refills, Acute 03/19/24 15:32:00 EDT, 03/12/24 15:32:00 EDT, Susp[facility], [id number], Partial fill upon patient request [...] Refills, Maintenance, 11/28/23 8:27:00 EDT, [id number], 178, cm, 11/17/23 10:55:00 EDT, Height, 113, kg, 11/17/23 10:55:00 EDT,Dry Weight Start Date: 11/28/23 Status: Ordered zinc sulfate 66 mg oral tablet 1 tablet = 66 mg, By Mouth, 3 times a day, # 42 tablet, 5 Refills, Maintenance, 03/14/24 16:16:00 EDT, Tablet, [facility]/pharmacy #[id number], Partial fill upon patient request if the prescription is for a schedule II opioid drug., 178, cm, 03/10/24 15:24:00 EDT,... 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 (Rx order must be sent to pharmacy [...] Service Informant Mast cell activation Discharge Diagnosis 03/08/24 Amos-Danlos syndrome Discharge Diagnosis 03/08/24 Tommy's thyroiditis Discharge Diagnosis 03/08/24 Pharyngitis Discharge Diagnosis 03/08/24 Carpal tunnel syndrome, bilateral Discharge Diagnosis 03/08/24 Myofascial pain syndrome Discharge Diagnosis 03/08/24 Vital Signs Most recent to oldest [Reference Range]: 1 Height 178 cm (03/08/24 11:00 AM) Weight 112 kg (03/08/24 11:00 AM) Oxygen Saturation [94-100 %] 97 % (03/08/24 11:00 AM) Pulse Rate [55-90 bpm] 110 bpm *H* (03/08/24 11:00 AM) Body Mass Index [18.5-24.99 kg/m2] 35.35 kg/m2 *>HHI* (03/08/24 11:00 AM) Blood Pressure [90-138/55-84 mm Hg] 106/ 72mm Hg (03/08/24 11:00 AM) Temperature [96.8-100.4 DegF] 97.1 DegF (03/08/24 11:00 AM) Mode of Delivery (Oxygen) Room air (03/08/24 11:00 AM) Blood pressure sites Arm, left (03/08/24 11:00 AM) Temperature Route Temporal (03/08/24 11:00 AM) Dry Weight 112 kg (03/08/24 11:00 AM) Weight Obtained Via Standing scale (03/08/24 11:00 AM) Dry Weight Obtained Via Standing scale (03/08/24 11:00 AM) Social History Social History Type Response Smoking Status Never (less than 100 in lifetime) entered on: 05/14/21 Sex Patient Care team information Care Team Personnel Name: Yaima Brizuela MD Position: [facility] Physician - Primary Care Member Role: PCP Address: Address: [address] [place] [address]- Care Team Related Persons Name: AISHA ESTEVES Address: home [address] [facility] [address] [place] [address] Name: CECE ESTEVES Address: [place] [address] Name: CECE NUÑEZ Address: home [address] [place] [address]
--- OUTSIDE RECORDS SUMMARY | 2024-03-27 15:09 | XMS_ITS | Continuity of Care Document ---
Author Organization [facility] Address [address] [place] [address]- Care Team Providers Care Drill Press Operator Helper Name Role Phone Yaima Brizuela MD Primary Care Physician [phone] [place] [facility] Date(s): 11/24/22 - 12/24/22 [facility] [address] [place], [place] [address] Allergies, Adverse Reactions, Alerts Substance Reaction Severity Status terazosin DIZZINESS Active Glutens Active Xolair anaphylaxis Active Immunizations Given and Recorded Vaccine Date Status Refusal Reason [id number] 12y+ bivalent booster vax 03/26/22 Recorded SARS-CoV-2 [...] Refills, Maintenance, 11/10/22 15:49:00 EDT, Tablet, [id number], Partial fill upon patient request if the [...] Refills, Soft Stop, 10/25/19 11:51:00 EDT, Shampoo, [facility]/pharmacy #[id number], 1 application Topically Daily, 113.6, kg, 01/22/19 15:29:00 EDT, Dry Weight Start Date: 10/25/19 Status: Ordered ketotifen 0.025% ophthalmic solution 1 drops, Eyes, Both, Every 8 hours, # 7.5 mL, 1 Refills, Maintenance, 08/25/22 15:57:00 EDT, Solution, [facility]/pharmacy #[id number], Partial fill upon patient request if [...] MOUTH AT BEDTIME NEEDED 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 [...] Team Personnel Name: Yaima Brizuela MD Position: [facility] Physician - Primary Care Member Role: PCP Address: Address: [address] [place] [address]- Care Team Related Persons Name: AISHA ESTEVES Address: home [address] [address] Name: CECE ESTEVES Address: [place] [address] Name: CECE NUÑEZ Address: home [address] [place] [address]
--- OUTSIDE RECORDS SUMMARY | 2024-03-27 15:09 | XMS_ITS | Continuity of Care Document ---
Author Organization [facility] Address [address] [place] [address]- Care Team Providers Care Windshield Repair Technician Name Role Phone Yaima Brizuela MD Primary Care Physician Encounter [facility] Date(s): 06/11/20 - 07/11/20 [facility] [address] [place], [place] [address] [[email or web address]] Allergies, Adverse Reactions, Alerts Substance Reaction Severity [...] Refills, Soft Stop, 10/25/19 11:51:00 EDT, Shampoo, [facility]/pharmacy #[id number], 1 application Topically Daily, [...] 12:22:00 EDT, 05/06/20 12:22:00 EST, [facility] # [facility], 1 tablet... Start [...] 3 Refills, Maintenance, 10/10/19 11:17:00 EDT, Tablet, [facility]/pharmacy #[id number], 113.6, kg, 01/22/19 15:29:00 EDT, [...] Acute 11/20/20 15:45:00 EDT, 11/21/19 15:42:00 EDT, [facility] # 302, 113.6, kg, 01/22/19 15:29:00 EDT, Dry Weight Start Date: 11/21/19 Stop Date: 11/20/20 Status: Ordered zolpidem 10 mg oral tablet See Instructions, TAKE ONE TABLET BY MOUTH AT BEDTIME NEEDED 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, # 30 tablet, 3 Refills, Maintenance, 04/21/20 17:29:00 EST, [facility] # 302, 179, cm, 04/07/20 [...]
--- OUTSIDE RECORDS SUMMARY | 2024-03-27 15:09 | XMS_ITS | Continuity of Care Document ---
Author Organization [facility] Address [address] [place] [address]- Care Team Providers Care Instructional Support Assistant Name Role Phone Yaima Brizuela MD Primary Care Physician Encounter [facility] Date(s): 05/16/20 - 06/15/20 [facility] [address] [place], [place] [address] Allergies, Adverse Reactions, Alerts Substance [...] 03/02/21 12:22:00 EDT, 05/06/20 12:22:00 EST, [facility] # 302, 1 tablet... Start [...] 06/29/20 14:53:00 EST, 05/29/20 14:53:00 EST, Tablet, [facility]/pharmacy #[id number], Partial fill upon patient request... Start [...] Acute 11/20/20 15:45:00 EDT, 11/21/19 15:42:00 EDT, [facility], 113.6, kg, 01/22/19 15:29:00 EDT, Dry Weight Start Date: 11/21/19 Stop Date: 11/20/20 Status: Ordered zolpidem 10 mg oral tablet See Instructions, TAKE ONE TABLET BY MOUTH AT BEDTIME NEEDED 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, # 30 tablet, 3 Refills, Maintenance, 04/21/20 17:29:00 EST, [facility], 179, cm, 04/07/20 11:04:00 [...]
--- OUTSIDE RECORDS SUMMARY | 2024-03-27 15:09 | XMS_ITS | Continuity of Care Document ---
Author Organization [facility] Address [address] [place] [address]- Care Team Providers Care System Programmer Name Role Phone Yaima Brizuela MD Primary Care Physician Encounter [facility] [place] Date(s): 03/14/20 - 04/13/20 [facility] [address] [place], [place] [address] Allergies, [...] 3 Refills, Maintenance, 10/10/19 11:17:00 EDT, Tablet, [facility]/pharmacy #[id number], 113.6, kg, 01/22/19 15:29:00 EDT, Dry [...] Acute 11/20/20 15:45:00 EDT, 11/21/19 15:42:00 EDT, [facility] # [facility], 113.6, kg, 01/22/19 [...]
--- OUTSIDE RECORDS SUMMARY | 2024-03-27 15:09 | XMS_ITS | Continuity of Care Document ---
Author Organization [facility] Address [address] [place] [address]- Care Team Providers Care Title Department Manager Name Role Phone Chata HUGHES, Yaima Reed Primary Care Physician Encounter [facility] [place] Date(s): 12/21/22 - 01/20/23 [facility] [address] [place] [address]- Allergies, Adverse Reactions, Alerts Substance Reaction Severity Status terazosin DIZZINESS Active Glutens Active Xolair anaphylaxis Active Immunizations Given and Recorded Vaccine Date Status Refusal Reason [id number] 12y+ bivalent booster vax 03/26/22 Recorded SARS-CoV-2 [...] 2 Refills, Maintenance, 11/10/22 15:49:00 EDT, Tablet, [facility]/pharmacy #[id number], Partial fill upon patient request if the [...] Refills, Soft Stop, 10/25/19 11:51:00 EDT, Shampoo, [facility]/pharmacy #[id number], 1 application Topically Daily, 113.6, kg, 01/22/19 15:29:00 EDT, Dry Weight Start Date: 10/25/19 Status: Ordered ketotifen 0.025% ophthalmic solution 1 drops, Eyes, Both, Every 8 hours, # 7.5 mL, 1 Refills, Maintenance, 08/25/22 15:57:00 EDT, Solution, [facility]/pharmacy #[id number], Partial fill upon patient [...] MOUTH AT BEDTIME NEEDED 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 AURABINDO RED LEADER, # 30 tablet, 5 Refills, Maintenance, 08/23/22 15:12:00 EDT, [id number], AURABINDO RED LEADER ONLY PLEASE, 177.8, cm, 06/17/22 10:52:00 EST,... [...] Team Personnel Name: Yaima Brizuela MD Position: [facility] Physician - Primary Care Member Role: PCP Address: Address: [address] [place] [address]- Care Team Related Persons Name: AISHA ESTEVES Address: home [address] [place] [address] Name: CECE ESTEVES Address: [place] [address] Name: CECE NUÑEZ Address: home [address] [place] [address]
--- OUTSIDE RECORDS SUMMARY | 2024-03-27 15:09 | XMS_ITS | Continuity of Care Document ---
Author Organization [facility] Address [address] [place] [address]- Care Team Providers Care Habilitation Assistant Name Role Phone Chata HUGHES, Yaima Reed Primary Care Physician [phone] Encounter [facility] [place] Date(s): 12/22/22 - 01/21/23 [facility] [address] [place] [address]- Allergies, Adverse Reactions, Alerts Substance Reaction Severity Status terazosin DIZZINESS Active Glutens Active Xolair anaphylaxis Active Immunizations Given and Recorded Vaccine Date Status Refusal Reason [id number] 12y+ bivalent booster vax 03/26/22 Recorded SARS-CoV-2 [...] 2 Refills, Maintenance, 11/10/22 15:49:00 EDT, Tablet, [facility]/pharmacy #[id number], Partial fill upon patient request if the prescription is for a schedule II opioid drug., 178, cm, 11/09/22 21:34:00 EDT, [facility]... Start Date: 11/10/22 Status: Ordered Claritin 10 [...] 1 Refills, Maintenance, 08/25/22 15:57:00 EDT, Solution, [facility]/pharmacy #[id number], Partial fill upon [...] MOUTH AT BEDTIME NEEDED 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 AURABINDO MINE INSPECTOR FEDERAL, # 30 tablet, 5 Refills, Maintenance, 08/23/22 15:12:00 EDT, [id number], AURABINDO MINE INSPECTOR FEDERAL ONLY PLEASE, 177.8, cm, 06/17/22 10:52:00 EST,... [...] Yaima Brizuela MD Position: [facility] Physician - Primary Care Member Role: PCP Address: Address: [address] [place] [id number]- Care Team Related Persons Name: AISHA ESTEVES Address: home [address] [place] [address] Name: CECE ESTEVES Address: [place] [address] Name: CECE NUÑEZ Address: home [address] [place] [address]
--- OUTSIDE RECORDS SUMMARY | 2024-03-27 15:09 | XMS_ITS | Continuity of Care Document ---
Author Organization [facility] Address [address] [place] [address]- Care Team Providers Care Planer Off Bearer Name Role Phone Chata HUGHES, Yaima Reed Primary Care Physician [place] [facility] [id number] Date(s): 02/22/24 - 03/23/24 [facility] [address] [place] [address]- Allergies, Adverse Reactions, Alerts Substance Reaction Severity Status terazosin DIZZINESS Active Glutens Active Xolair anaphylaxis Active Immunizations Given and Recorded Vaccine Date Status Refusal Reason SARS-CoV-2(COVID-19)mRNA-LNP vac([id number]) 03/18/23 Recorded [id number] 12y+ bivalent booster vax 03/26/22 Recorded SARS-CoV-2 [...] Refills, Maintenance, 03/12/24 9:19:00 EDT, Tablet, [id number], Partial fill upon patient request if... Start Date: 03/12/24 Status: Ordered benzonatate 200 mg oral capsule 1 capsule = 200 mg, By Mouth, 3 times a day, PRN as needed for cough, for 7 days, # 21 capsule, 0 Refills, Acute 03/24/24 15:47:00 EDT, 03/17/24 15:47:00 EDT, Capsule, [facility]/pharmacy #[id number], Partial fill upon patient request if the prescription is for a... Start Date: 03/17/24 Stop Date: 03/24/24 Status: Ordered benzonatate 200 mg oral capsule 1 capsule = 200 mg, By Mouth, 3 times a day, PRN as needed for cough, for 14 days, # 42 capsule, 3 Refills, Acute 05/19/24 15:47:00 EST, 03/24/24 15:47:00 EDT, Capsule, [facility]/pharmacy #[id number], new rx please fill, 178, cm, 03/10/24 15:24:00 EDT, Height, 11... Start Date: 03/24/24 Stop Date: 05/19/24 Status: Ordered candesartan 4 mg oral tablet 1/2 TO 1 TABLET, By Mouth, Daily, # 90 tablet, 1 Refills, Maintenance, 01/18/24 16:13:00 EDT, [facility]/pharmacy #[id number], 178, cm, 01/09/24 15:03:00 EDT, [...] opioid drug. Start Date: 06/17/22 Status: Ordered flunisolide 25 mcg/inh nasal spray 2 sprays = 50 mcg, Nares, Both, 2 times a day, # 25 mL, 11 Refills, Maintenance, 03/19/24 10:58:00 EDT, [facility]/pharmacy #[id number], Partial fill upon patient request if the prescription is for a schedule II opioid drug., 2 sprays Nares, Both 2 times a day, 17... Start Date: 03/19/24 Status: Ordered Folic Acid = 100 mcg, [...] Refills, Maintenance, 11/28/23 8:27:00 EDT, [facility], 178, cm, 11/17/23 10:55:00 EDT, Height, 113, kg, 11/17/23 10:55:00 EDT,Dry Weight Start Date: 11/28/23 Status: Ordered zinc sulfate 66 mg oral tablet 1 tablet = 66 mg, By Mouth, 3 times a day, # 42 tablet, 5 Refills, Maintenance, 03/14/24 16:16:00 EDT, Tablet, [facility]/pharmacy #[id number], Partial fill upon patient request if the prescription is for a schedule II opioid drug., 178, cm, 03/10/24 15:24:00 EDT,... Start Date: 03/14/24 Stop Date: 06/06/24 Status: Ordered zolpidem 10 mg oral tablet See Instructions, TAKE 1 TABLET BY MOUTH AT BEDTIME NEEDED 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 AURABINDO INSERTER (Rx order must be sent to pharmacy [...] Primary Care Member Role: PCP Address: Address: [address] [place] [address]- Care Team Related Persons Name: AISHA ESTEVES Address: home [address] [address] Name: CECE ESTEVES Address: [place] [address] Name: CECE NUÑEZ Address: home [address] [place] [address]
--- OUTSIDE RECORDS SUMMARY | 2024-03-27 15:10 | XMS_ITS | Continuity of Care Document ---
Author Organization [facility] Address [address] [place] [address]- Care Team Providers Care Power Electronics Research Engineer Name Role Phone Yaima Brizuela MD Primary Care Physician [place] [facility] [place] 09/21/23 - 10/21/23 [facility] [address] [place], [place] [address] Attending Physician: Jason Gonzalez Admitting Physician: Jason Gonzalez Referring Physician: AdmtrJason Allergies, Adverse Reactions, Alerts Substance Reaction Severity Status terazosin DIZZINESS Active Glutens Active Xolair anaphylaxis Active Immunizations Given and Recorded Vaccine Date Status Refusal Reason SARS-CoV-2(COVID-19)mRNA-LNP vac([id number]) 03/18/23 Recorded [id number] 12y+ bivalent booster vax 03/26/22 Recorded SARS-CoV-2 (COVID-19) mRNA BNT-162b2 vac 1 06/25/21 Recorded SARS-CoV-2 (COVID-19) mRNA BNT-162b2 vac 01/03/21 Recorded SARS-CoV-2 (COVID-19) mRNA BNT-162b2 vac 12/13/20 Recorded 1Result Comment: 3rd dose Medications candesartan 4 mg oral tablet 1/2 TO 1 TABLET, By Mouth, Daily, # 90 tablet, 1 Refills, Maintenance, 03/14/23 6:44:00 EDT, [id number], 178, cm, 01/24/23 15:44:00 EDT, Height, 109.5, [...] 3 Refills, Maintenance, 08/03/23 13:17:00 EST, Tablet, [facility]/pharmacy #[id number], Partial fill upon patient [...] MOUTH AT BEDTIME NEEDED 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 AURABINDO PATIENT ACCESS REPRESENTATIVE, # 30 tablet, 5 Refills, Maintenance, 08/25/23 12:51:00 EDT, [id number], AURABINDO PATIENT ACCESS REPRESENTATIVE ONLY PLEASE, 178, cm, 08/11/23 10:59:00 EST, [...] on: 05/14/21 Sex Laboratory * Event Display: Laboratory Result Scanned Authored Date: * Event Display: Non BH Lab Results Authored Date: * Event Display: Non BH Lab Results Authored Date: * Event Display: Non BH Lab Results Authored Date: * Event Display: Non BH Lab Results Authored Date: Radiology * Event Display: CT Scan Abdomen, Non- BH Authored Date: MR Brain * Event Display: MRI Head Authored Date: Patient Care team information Care Team Personnel Name: Chata HUGHES, Yaima Reed Position: [facility] Physician - Primary Care Member Role: PCP Address: Address: [address] [place] [address]- Care Team Related Persons Name: AISHA ESTEVES Address: home [address] [place] [address] Name: CECE ESTEVES Address: [place] [address] Name: CECE NUÑEZ Address: home [address] [place] [address]
--- OUTSIDE RECORDS SUMMARY | 2024-03-27 15:10 | XMS_ITS | Continuity of Care Document ---
Author Organization [facility] Address [address] [place] [address]- Care Team Providers Care Powder Compounder Name Role Phone Chata HUGHES, Yaima Reed Primary Care Physician [phone] [place] [facility] [place] Date(s): 11/08/22 - 12/08/22 [facility] [address] [place] [address]- Allergies, Adverse Reactions, Alerts Substance Reaction Severity Status terazosin DIZZINESS Active Glutens Active Xolair anaphylaxis Active Immunizations Given and Recorded Vaccine Date Status Refusal Reason [id number] 12y+ bivalent booster vax 03/26/22 Recorded SARS-CoV-2 [...] Refills, Maintenance, 11/10/22 15:49:00 EDT, Tablet, [id number], Partial fill upon patient request if the [...] Soft Stop, 10/25/19 11:51:00 EDT, Shampoo, [facility]/pharmacy #0859, 1 application Topically Daily, 113.6, kg, 01/22/19 15:29:00 EDT, Dry Weight Start Date: 10/25/19 Status: Ordered ketotifen 0.025% ophthalmic solution 1 drops, Eyes, Both, Every 8 hours, # 7.5 mL, 1 Refills, Maintenance, 08/25/22 15:57:00 EDT, Solution, [facility]/pharmacy #[id number], Partial fill upon patient request [...] MOUTH AT BEDTIME NEEDED 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 AURABINDO CO FOUNDER & CEO, # 30 tablet, 5 Refills, Maintenance, 08/23/22 15:12:00 EDT, [id number], AURABINDO CO FOUNDER & CEO ONLY PLEASE, 177.8, cm, 06/17/22 10:52:00 EST,... [...] Team Personnel Name: Yaima Brizuela MD Position: [facility] Physician - Primary Care Member Role: PCP Address: Address: [address] [place] [address]- Care Team Related Persons Name: AISHA ESTEVES Address: home [address] [address] Name: CECE ESTEVES Address: [place] [address] Name: CECE NUÑEZ Address: home [address] [place] [address]
--- OUTSIDE RECORDS SUMMARY | 2024-03-27 15:10 | XMS_ITS | Continuity of Care Document ---
Author Organization [facility] Address [address] [place] [address]- Care Team Providers Care Silk Worker Name Role Phone Yaima Brizuela MD Primary Care Physician [phone] En[place] [facility] [place] Date(s): 10/29/22 - 11/28/22 [facility] [address] [place], [place] [address] Allergies, Adverse Reactions, Alerts Substance Reaction Severity Status terazosin DIZZINESS Active Glutens Active Xolair anaphylaxis Active Immunizations Given and Recorded Vaccine Date Status Refusal Reason [id number] 12y+ bivalent booster vax 03/26/22 Recorded SARS-CoV-2 [...] Refills, Maintenance, 11/10/22 15:49:00 EDT, Tablet, [id number], Partial fill upon patient request if the [...] 1 Refills, Maintenance, 08/25/22 15:57:00 EDT, Solution, [facility] [...] MOUTH AT BEDTIME NEEDED 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 AURABINDO LEAN SIX SIGMA SENIOR SPECIALIST, # 30 tablet, 5 Refills, Maintenance, 08/23/22 15:12:00 EDT, [id number], AURABINDO LEAN SIX SIGMA SENIOR SPECIALIST ONLY PLEASE, 177.8, cm, 06/17/22 10:52:00 [...] Team Personnel Name: Yaima Brizuela MD Position: [facility] Physician - Primary Care Member Role: PCP Address: Address: [address] [place] [address]- Care Team Related Persons Name: AISHA ESTEVES Address: home [address] [address] Name: CECE ESTEVES Address: [place] [address] Name: CECE NUÑEZ Address: home [address] [place] [address]
--- OUTSIDE RECORDS SUMMARY | 2024-03-27 15:10 | XMS_ITS | Continuity of Care Document ---
Author Organization [facility] Address [address] [place] [address]- Care Team Providers Care Computer Terminal Operator Name Role Phone Yaima Brizuela MD Primary Care Physician [phone] Encounter [facility] Date(s): 07/13/21 - 08/12/21 [facility] [address] [place], [place] [address] Allergies, Adverse Reactions, Alerts [...] Refills, Soft Stop, 10/25/19 11:51:00 EDT, Shampoo, [facility]/pharmacy #[id number], 1 application Topically [...] 3 Refills, Maintenance, 12/09/20 11:35:00 EDT, Tablet, [facility]/pharmacy #[id number], 179, cm, 11/27/20 [...] 30 tablet, 5 Refills,Maintenance, 08/06/21 14:06:00 EST, [facility] 302, 177.8, cm, 08/06/21 11:00:00 EST, Height, 116.3, kg, 07/13/21 12:56:00 EST, Dry Weight Start Date: 08/06/21 Status: Ordered zolpidem 10 mg oral tablet See Instructions, TAKE ONE TABLET BY MOUTH AT BEDTIME NEEDED 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, # 30 tablet, 5 Refills, Maintenance, 02/17/21 15:40:00 EDT, [facility] # [facility], 179, cm, 02/12/21 11:02:00 [...]
--- OUTSIDE RECORDS SUMMARY | 2024-03-27 15:10 | XMS_ITS | Continuity of Care Document ---
Author Organization [facility] Address [address] [place] [address]- Care Team Providers Care Geologist Name Role Phone Yaima Brizuela MD Primary Care Physician Encounter [facility] [place] ACCT R [id number] Date(s): 07/12/19 - 09/23/19 [facility] [address] [place] [address]- [facility] Attending Physician: Javad Hedrick MD Admitting Physician: Javad Hedrick MD Referring Physician: Yaima Brizuela MD Allergies, [...] days, # 30 tablet, 3 Refills, Acute 12/05/19 16:38:00 EDT, 08/07/19 16:38:00 EST, Tablet, [facility] # 302, 113.6, kg, 01/22/1915:29:00 EDT, Dry Weight Start Date: 08/07/19 Stop Date: 12/05/19 Status: Ordered ZyrTEC 10 mg oral tablet 2 tablet = 20 mg, By Mouth, Daily, # 30 tablet, 0 Refills, Maintenance, 01/22/19 19:00:54 EDT, Tablet Start Date: 01/22/19 Status: Ordered Problem List Condition Effective Dates Status Health Status Inform ant Abdominal discomfort(Confirmed) Active Acute sinusitis(Confirmed) Active Allergic rhinitis, unspecified(Confirmed) Active Asthma(Confirmed) Active Amos-Danlos syndrome(Confirmed) Active Endometriosis(Confirmed) Active Fibromyalgia(Confirmed) Active Tommy's thyroiditis(Confirmed) Active Lyme disease(Confirmed) Active Mast cell activation(Confirmed) Active
--- OUTSIDE RECORDS SUMMARY | 2024-03-27 15:10 | XMS_ITS | Continuity of Care Document ---
Author Organization [facility] Address [address] [place] [address]- Care Team Providers Care Mule Operator Name Role Phone Chata HUGHES, Yaima Reed Primary Care Physician Encounter [facility] [place] Date(s): 03/17/23 - 04/16/23 [facility] [address] [place] [address]- Allergies, Adverse Reactions, Alerts Substance Reaction Severity Status terazosin DIZZINESS Active Glutens Active Xolair anaphylaxis Active Immunizations Given and Recorded Vaccine Date Status Refusal Reason [id number] 12y+ bivalent booster vax 03/26/22 Recorded SARS-CoV-2 [...] Refills, Maintenance, 03/14/23 6:44:00 EDT, [facility], 178, cm, 01/24/23 15:44:00 EDT, Height, 109.5, [...] Refills, Soft Stop, 10/25/19 11:51:00 EDT, Shampoo, [facility]/pharmacy #[id number], 1 application Topically Daily, 113.6, kg, 01/22/19 15:29:00 EDT, Dry Weight Start Date: 10/25/19 Status: Ordered ketotifen 0.025% ophthalmic solution 1 drops, Eyes, Both, Every 8 hours, # 7.5 mL, 1 Refills, Maintenance, 08/25/22 15:57:00 EDT, Solution, [facility]/pharmacy #[id number], Partial fill upon [...] MOUTH AT BEDTIME NEEDED 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 AURABINDO PRINTS AND DRAWINGS CURATOR, # 30 tablet, 5 Refills, Maintenance, 02/22/23 13:51:00 EDT, [id number], AURABINDO PRINTS AND DRAWINGS CURATOR ONLY PLEASE, 178, cm, 01/24/23 15:44:00 EDT, [...] Care Member Role: PCP Address: Address: [address] [place] [address]- Care Team Related Persons Name: AISHA ESTEVES Address: home [address] [place] [address] Name: CECE ESTEVES Address: [place] [address] Name: CECE NUÑEZ Address: home [address] [place] [address]
--- OUTSIDE RECORDS SUMMARY | 2024-03-27 15:10 | XMS_ITS | Continuity of Care Document ---
Author Organization [facility] Address [address] [place] [address]- Care Team Providers Care Oil Change Technician Name Role Phone Chata HUGHES, Yaima Reed Primary Care Physician Encounter [facility] Date(s): 05/18/21 - 05/25/21 [facility] [address] [place] [address]- Encounter Diagnosis Chronic cough(Discharge Diagnosis) - 05/18/21 Attending Physician: Pamela HUGHES, Jay Jay Carrington Referring Physician: Rachid Dobson MD Allergies, Adverse Reactions, Alerts Substance Reaction [...] Refills, Maintenance, 12/09/20 11:35:00 EDT, Tablet, [facility]/pharmacy #[id number], 179, cm, 11/27/20 14:03:00 EDT, [...] tablet, 5 Refills, Maintenance, 02/17/21 15:40:00 EDT, [facility] # 302, 179, cm, 02/12/21 11:02:00 [...] Health Status Cl inical Service Informant Chronic cough Discharge Diagnosis 05/18/21 Vital Signs Most recent to oldest [Reference Range]: 1 Height 179 cm (05/18/21 10:42 AM) Weight 115.4 kg (05/18/21 10:42 AM) Oxygen Saturation [94-100 %] 98 % (05/18/21 10:42 AM) Pulse Rate [55-90 bpm] 90 bpm (05/18/21 10:42 AM) Body Mass Index [18.5-24.99] 36.02 *>HHI* (05/18/21 10:42 AM) Blood Pressure [90-138/55-84 mm Hg] 114/ 72mm Hg (05/18/21 10:42 AM) Temperature [96.8-100.4 DegF] 97.2 DegF (05/18/21 10:42 AM) Blood pressure sites Arm, left (05/18/21 10:42 AM) Temperature Route Temporal (05/18/21 10:42 AM) Social History Social History Type Response Smoking Status Never (less than 100 in lifetime) entered on: 05/14/21 Sex
--- OUTSIDE RECORDS SUMMARY | 2024-03-27 15:10 | XMS_ITS | Continuity of Care Document ---
Author Organization [facility] Address [address] [place] [address]- Care Team Providers Care Physical Chemist Name Role Phone Yaima Brizuela MD Primary Care Physician [phone] Encounter [facility] Date(s): 06/18/22 - 07/18/22 [facility] [address] [place], [place] [address] Allergies, Adverse Reactions, Alerts Substance Reaction Severity Status terazosin DIZZINESS Active Glutens Active Xolair anaphylaxis Active Immunizations Given and Recorded Vaccine Date Status Refusal Reason [id number] 12y+ bivalent booster vax 03/26/22 Recorded SARS-CoV-2 [...] Refills, Soft Stop, 10/25/19 11:51:00 EDT, Shampoo, [facility]/pharmacy #[id number], 1 application Topically Daily, 113.6, [...] MOUTH AT BEDTIME NEEDED 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 A[facility] CENTER CUSTOMER SERVICE ASSOCIATE, # 30 tablet, 5 Refills, Maintenance, 03/05/22 11:51:00 EDT, [facility]/pharmacy #[id number], [facility]ENTER CUSTOMER SERVICE ASSOCIATE ONLY PLEASE, 177.8, cm, 03/05/22 11:17:00 EDT,... [...] Team Personnel Name: Yaima Brizuela MD Position: [facility] Primary Care Physician Member Role: PCP Address: Address: [address] [place] [address]- Care Team Related Persons Name: AISHA ESTEVES Address: home [address] [address] Name: CECE ESTEVES Name: CECE NUÑEZ Address: home [address] [place] [address]
--- OUTSIDE RECORDS SUMMARY | 2024-03-27 15:10 | XMS_ITS | Continuity of Care Document ---
Author Organization [facility] Address [address] [place] [address]- Care Team Providers Care Care Nurse Rn Name Role Phone Chata HUGHES, Yaima Reed Primary Care Physician Encounter [facility] Date(s): 12/11/20 - 01/10/21 [facility] [address] [place], [place] [address] Allergies, Adverse Reactions, Alerts [...] 56 tablet, 0 Refills, Acute, 08/20/20 8:36:00EDT, [facility] STORE 04080, 179, cm, 07/18/20 14:54:00 EST, Height, 113.6, [...] Refills, Soft Stop, 10/25/19 11:51:00 EDT, Shampoo, [facility]/pharmacy #0859, 1 application Topically Daily, [...] Physician Stop 03/02/21 12:22:00 EDT, 05/06/20 12:22:00 [facility], [facility], 1 tablet... Start [...] 3 Refills, Maintenance, 12/09/20 11:35:00 EDT, Tablet, [facility]/pharmacy #0859, 179, cm, 11/27/20 14:03:00 EDT, Height, 121.1, kg, 10/22/20 14:46:00 EDT, Dry Weight Start Date: 12/09/20 Status: Ordered rizatriptan 5 mg oral tablet 1 tablet = 5 mg, By Mouth, Daily, PRN for migraine headache, may repeat dose every 2 hours up to a maximum of 3, # 30 tablet, 5 Refills, Maintenance, 10/09/20 16:46:00 EDT, Tablet, [facility]/pharmacy #[id number], Partial fill upon patient [...] tablet, 5 Refills, Maintenance, 07/25/20 12:12:00 EST, [facility] # 302, 179, cm, 07/18/20 14:54:00 [...]
--- OUTSIDE RECORDS SUMMARY | 2024-03-27 15:10 | XMS_ITS | Continuity of Care Document ---
Author Organization [facility] Address [address] [place] [address], 3r d Floor, [address] [place] [address]- Care Team Providers Care Crm Technical Lead Name Role Phone Chata HUGHES, Yaima Reed Primary Care Physician [place] [facility] [place](s[place] 09/29/23 - 10/29/23 [facility] [address] [facility] 3rd Floor, [address] [place] [address]- Allergies, Adverse Reactions, Alerts Substance Reaction Severity Status terazosin DIZZINESS Active Glutens Active Xolair anaphylaxis Active Immunizations Given and Recorded Vaccine Date Status Refusal Reason SARS-CoV-2(COVID-19)mRNA-LNP vac([id number]) 03/18/23 Recorded [id number] 12y+ bivalent booster vax 03/26/22 Recorded SARS-CoV-2 (COVID-19) mRNA BNT-162b2 vac 1 06/25/21 Recorded SARS-CoV-2 (COVID-19) mRNA BNT-162b2 vac 01/03/21 Recorded SARS-CoV-2 (COVID-19) mRNA BNT-162b2 vac 12/13/20 Recorded 1Result Comment: 3rd dose Medications candesartan 4 mg oral tablet 1/2 TO 1 TABLET, By Mouth, Daily, # 90 tablet, 1 Refills, Maintenance, 03/14/23 6:44:00 EDT, [facility], 178, cm, 01/24/23 15:44:00 EDT, Height, 109.5, [...] 08/25/22 15:57:00 EDT, Solution, [facility]/pharmacy #[id number], Partial fill upon patient request [...] Refills, Maintenance, 08/03/23 13:17:00 EST, Tablet, [facility]/pharmacy #0859, Partial fill upon patient request [...] Gm, 5 Refills, Maintenance, 02/07/23 16:36:00 EDT, [facility]/pharmacy#0859, Partial fill upon patient request if the prescription is for a schedule II opioid drug., 178, cm, 01/24/23 15:44:00 EDT, Height, 109.5, kg, 06/0... 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, # 30 tablet, 5 Refills, Maintenance, 08/25/23 12:51:00 EDT, [facility]/pharmacy #[id number], AURABINDO REFINERY TECHNICIAN ONLY PLEASE, 178, cm, 08/11/23 10:59:00 EST, [...] MD Position: [facility] Physician - Primary Care Member Role: PCP Address: Address: [address] [place] [address]- Care Team Related Persons Name: AISHA ESTEVES Address: home [address] [facility] [address] [place] [address] Name: CECE ESTEVES Address: [place] [address] Name: CECE NUÑEZ Address: home [address] [place] [address]
--- OUTSIDE RECORDS SUMMARY | 2024-03-27 15:10 | XMS_ITS | Continuity of Care Document ---
Author Organization [facility] Address [address] [place] [address]- Care Team Providers Care President Commercial Bank Name Role Phone Yaima Brizuela MD Primary Care Physician En[place] [facility] Date(s): 12/01/23 - 12/31/23 [facility] [address] [place], [place] [address] Allergies, Adverse Reactions, Alerts Substance Reaction Severity Status terazosin DIZZINESS Active Glutens Active Xolair anaphylaxis Active Immunizations Given and Recorded Vaccine Date Status Refusal Reason SARS-CoV-2(COVID-19)mRNA-LNP vac([id number]) 03/18/23 Recorded [id number] 12y+ bivalent booster vax 03/26/22 Recorded SARS-CoV-2 (COVID-19) mRNA BNT-162b2 vac 1 06/25/21 Recorded SARS-CoV-2 (COVID-19) mRNA BNT-162b2 vac 01/03/21 Recorded SARS-CoV-2 (COVID-19) mRNA BNT-162b2 vac 12/13/20 Recorded 1Result Comment: 3rd dose Medications candesartan 4 mg oral tablet 1/2 TO 1 TABLET, By Mouth, Daily, # 90 tablet, 1 Refills, Maintenance, 03/14/23 6:44:00 EDT, [facility], 178, cm, 01/24/23 15:44:00 EDT, Height, 109.5, [...] Refills, Maintenance, 08/25/22 15:57:00 EDT, Solution, [facility]/pharmacy #[id number], Partial fill upon patient [...] 3 Refills, Maintenance, 08/03/23 13:17:00 EST, Tablet, [facility]/pharmacy #[id number], Partial fill upon patient [...] Refills, Maintenance, 11/28/23 8:27:00 EDT, [facility], 178, cm, 11/17/23 10:55:00 EDT, Height, 113, kg, 11/17/23 10:55:00 EDT,Dry Weight Start Date: 11/28/23 Status: Ordered zolpidem 10 mg oral tablet See Instructions, TAKE 1 TABLET BY MOUTH AT BEDTIME NEEDED 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
--- OUTSIDE RECORDS SUMMARY | 2024-03-27 15:10 | XMS_ITS | Continuity of Care Document ---
Author Organization [facility] Address [address] [place] [address]- Care Team Providers Care Playground Director Name Role Phone Chata HUGHES, Yaima Reed Primary Care Physician [phone] Encounter [facility] Date(s): 04/24/21 - 05/24/21 [facility] [address] [place], [place] [address] Allergies, Adverse Reactions, Alerts Substance [...] 3 Refills, Maintenance, 12/09/20 11:35:00 EDT, Tablet, [facility]/pharmacy #[id number], 179, cm, 11/27/20 14:03:00 EDT, [...] tablet, 5 Refills, Maintenance, 02/17/21 15:40:00 EDT, [facility] # 302, 179, cm, 02/12/21 11:02:00 [...]
--- OUTSIDE RECORDS SUMMARY | 2024-03-27 15:10 | XMS_ITS | Continuity of Care Document ---
Author Organization [facility] Address [address] [place] [address]- Care Team Providers Care Bench Mechanic Name Role Phone Yaima Brizuela MD Primary Care Physician [phone] Encounter [facility] Date(s): 07/16/20 - 08/15/20 [facility] [address] [place], [place] [address] Allergies, Adverse Reactions, Alerts [...] 08/27/20 10:47:00 EDT, 07/30/20 10:47:00 EST, Tablet, [facility]/pharmacy #[id number], Partial fill upon patient request ifthe [...] Stop 03/02/21 12:22:00 EDT, 05/06/20 12:22:00 EST, [facility] # 302, 1 tablet... Start [...] 3 Refills, Maintenance, 10/10/19 11:17:00 EDT, Tablet, [facility]/pharmacy #0859, 113.6, kg, 01/22/19 15:29:00 EDT, Dry [...] Acute 11/20/20 15:45:00 EDT, 11/21/19 15:42:00 EDT, [facility] # 302, 113.6, kg, 01/22/19 15:29:00 EDT, Dry Weight Start Date: 11/21/19 Stop Date: 11/20/20 Status: Ordered zolpidem 10 mg oral tablet See Instructions, TAKE ONE TABLET BY MOUTH AT BEDTIME NEEDED 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, # 30 tablet, 5 Refills, Maintenance, 07/25/20 12:12:00 EST, [facility] # 302, 179, cm, 07/18/20 14:54:00 EST, Height, 113.6, kg, 01/22/19 15:29:00 EDT, Dry Weight Start Date: 07/25/20 Status: Ordered zolpidem 10 mg oral tablet See Instructions, TAKE ONE TABLET BY MOUTH AT BEDTIME NEEDED 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, # 30 tablet, 5 Refills, Maintenance, 07/24/20 13:33:00 EST, [facility]/pharmacy #[id number], 179, cm, 07/18/20 14:54:00 EST, Height, [...]
--- OUTSIDE RECORDS SUMMARY | 2024-03-27 15:10 | XMS_ITS | Continuity of Care Document ---
Author Organization [facility] Address [address] [place] [address]- Care Team Providers Care Pattern Carrier Name Role Phone Yaima Brizuela MD Primary Care Physician [phone] [facility] Date(s): 10/18/22 - 11/17/22 [facility] [address] [place], [place] [address] Allergies, Adverse Reactions, Alerts Substance Reaction Severity Status terazosin DIZZINESS Active Glutens Active Xolair anaphylaxis Active Immunizations Given and Recorded Vaccine Date Status Refusal Reason [id number] 12y+ bivalent booster vax 03/26/22 Recorded SARS-CoV-2 [...] Refills, Maintenance, 11/10/22 15:49:00 EDT, Table[facility], [facility], Partial fill upon patient request if the [...] mL, 1 Refills, Maintenance, 08/25/22 15:57:00 EDT, [place], [facility]/pharmacy #0859, Partial fill [...] MOUTH AT BEDTIME NEEDED 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 [...] Team Personnel Name: Yaima Brizuela MD Position: [facility] Physician - Primary Care Member Role: PCP Address: Address: [address] [place] [address]- Care Team Related Persons Name: AISHA ESTEVES Address: home [address] [address] Name: CECE ESTEVES Address: [place] [address] Name: CECE NUÑEZ Address: home [address] [place] [address]
--- OUTSIDE RECORDS SUMMARY | 2024-03-27 15:10 | XMS_ITS | Continuity of Care Document ---
Author Organization [facility] Address [address] [place] [address]- Care Team Providers Care Selling Manager Name Role Phone Chata HUGHES, Yaima Reed Primary Care Physician [phone] [place] [facility] [place] [id number] Date(s): 11/17/23 - 12/17/23 [facility] [address] [place] [address]- Allergies, Adverse Reactions, Alerts Substance Reaction Severity Status terazosin DIZZINESS Active Glutens Active Xolair anaphylaxis Active Immunizations Given and Recorded Vaccine Date Status Refusal Reason SARS-CoV-2(COVID-19)mRNA-LNP vac([id number]) 03/18/23 Recorded [id number] 12y+ bivalent booster vax 03/26/22 Recorded SARS-CoV-2 (COVID-19) mRNA BNT-162b2 vac 1 06/25/21 Recorded SARS-CoV-2 (COVID-19) mRNA BNT-162b2 vac 01/03/21 Recorded SARS-CoV-2 (COVID-19) mRNA BNT-162b2 vac 12/13/20 Recorded 1Result Comment: 3rd dose Medications candesartan 4 mg oral tablet 1/2 TO 1 TABLET, By Mouth, Daily, # 90 tablet, 1 Refills, Maintenance, 03/14/23 6:44:00 EDT, [facility], 178, cm, 01/24/23 15:44:00 EDT, Height, 109.5, [...] 1 Refills, Maintenance, 08/25/22 15:57:00 EDT, Solution, [facility]/pharmacy #[id number], Partial fill upon [...] 3 Refills, Maintenance, 08/03/23 13:17:00 EST, Tablet, [facility]/pharmacy #[id number], Partial fill upon [...] Refills, Maintenance, 11/28/23 8:27:00 EDT, [facility], 178, cm, 11/17/23 10:55:00 EDT, Height, 113, kg, 11/17/23 10:55:00 EDT,Dry Weight Start Date: 11/28/23 Status: Ordered zolpidem 10 mg oral tablet See Instructions, TAKE 1 TABLET BY MOUTH AT BEDTIME NEEDED 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
--- OUTSIDE RECORDS SUMMARY | 2024-03-27 15:10 | XMS_ITS | Continuity of Care Document ---
Author Organization [facility] Address [address] [place] [address]- Care Team Providers Care Business Writer Name Role Phone Yaima Brizuela MD Primary Care Physician En[place] [facility] [place] [place] Date(s): 12/25/20 - 01/24/21 [facility] [address] [place], [place] [address] Allergies, Adverse Reactions, Alerts Substance [...] 56 tablet, 0 Refills, Acute, 08/20/20 8:36:00EDT, [facility] STORE 02655, 179, cm, 07/18/20 14:54:00 EST, Height, 113.6, [...] Physician Stop 03/02/21 12:22:00 EDT, 05/06/20 12:22:00 [facility], [facility] # 302, 1 tablet... Start [...] 5 Refills, Maintenance, 10/09/20 16:46:00 EDT, Tablet, [facility]/pharmacy #0859, Partial fill upon [...] Refills, Maintenance, 07/25/20 12:12:00 EST, [facility] # 302, 179, cm, 07/18/20 [...]
--- OUTSIDE RECORDS SUMMARY | 2024-03-27 15:10 | XMS_ITS | Continuity of Care Document ---
Author Organization [facility] Address [address] [place] [address]- Care Team Providers Care Soldering Machine Tender Name Role Phone Chata HUGHES, Yaima Reed Primary Care Physician [phone] Encounter [facility] [place] Date(s): 11/27/20 - 12/27/20 [facility] [address] [place], [place] [address] Allergies, Adverse Reactions, Alerts [...] 56 tablet, 0 Refills, Acute, 08/20/20 8:36:00EDT, [facility] STORE 62266, 179, cm, 07/18/20 14:54:00 EST, Height, 113.6, [...] Physician Stop 03/02/21 12:22:00 EDT, 05/06/20 12:22:00 [facility], [facility] # 302, 1 tablet... [...] Refills, Maintenance, 12/09/20 11:35:00 EDT, Tablet, [facility]/pharmacy #0859, 179, cm, 11/27/20 14:03:00 EDT, Height, [...] tablet, 5 Refills, Maintenance, 07/25/20 12:12:00 EST, [facility] # 302, 179, cm, 07/18/20 14:54:00 [...]
--- OUTSIDE RECORDS SUMMARY | 2024-03-27 15:11 | XMS_ITS | Continuity of Care Document ---
Author Organization [facility] Address [address] [place] [address]- Care Team Providers Care Market Risk Analyst Name Role Phone Yaima Brizuela MD Primary Care Physician [phone] [place] [facility] [place](s): 02/26/20 - 03/27/20 [facility] [address] [place] [address]- [facility] Allergies, Adverse Reactions, Alerts Substance [...] Stop, 10/25/19 11:51:00 EDT, Shampoo, [facility]/pharmacy #0859, 1 application Topically Daily, [...] Maintenance, 10/10/19 11:17:00 EDT, Tablet, [facility]/pharmacy #0859, 113.6, kg, 01/22/19 15:29:00 EDT, Dry [...] Acute 11/20/20 15:45:00 EDT, 11/21/19 15:42:00 EDT, [facility] # 302, 113.6, kg, [...]
--- OUTSIDE RECORDS SUMMARY | 2024-03-27 15:11 | XMS_ITS | Continuity of Care Document ---
Author Organization [facility] Address [address] [place] [address]- Care Team Providers Care Supervisor Paint Department Name Role Phone Yaima Brizuela MD Primary Care Physician Encounter [facility] [place] Date(s): 03/05/21 - 04/04/21 [facility] [address] [place], [place] [address] Allergies, Adverse Reactions, Alerts [...] 56 tablet, 0 Refills, Acute, 08/20/20 8:36:00EDT, [facility] STORE 23402, 179, cm, 07/18/20 14:54:00 EST, Height, 113.6, [...] Refills, Soft Stop, 10/25/19 11:51:00 EDT, Shampoo, [facility]/pharmacy #0859, 1 application Topically Daily, [...] 3 Refills, Maintenance, 12/09/20 11:35:00 EDT, Tablet, [facility]/pharmacy #0859, 179, cm, 11/27/20 14:03:00 [...] tablet, 5 Refills, Maintenance, 07/24/20 13:33:00 EST, [facility]/pharmacy #0859, 179, cm, 07/18/20 14:54:00 EST, [...] tablet, 5 Refills, Maintenance, 02/17/21 15:40:00 EDT, [facility] # 302, 179, cm, 02/12/21 11:02:00 [...]
--- OUTSIDE RECORDS SUMMARY | 2024-03-27 15:11 | XMS_ITS | Continuity of Care Document ---
Author Organization [facility] Address [address] [place] [address]- Care Team Providers Care Egg Sorter Name Role Phone Chata HUGHES, Yaima Reed Primary Care Physician En[place] [facility] [place] ACCT R [id number] Date(s): 11/17/22 - 12/17/22 [facility] [address] [place] [address]- Allergies, Adverse Reactions, Alerts Substance Reaction Severity Status terazosin DIZZINESS Active Glutens Active Xolair anaphylaxis Active Immunizations Given and Recorded Vaccine Date Status Refusal Reason [id number] 12y+ bivalent booster vax 03/26/22 Recorded SARS-CoV-2 [...] Refills, Maintenance, 11/10/22 15:49:00 EDT, Tablet, [id number], Partial fill upon patient request if the [...] MOUTH AT BEDTIME NEEDED 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, # 30 tablet, 5 Refills, Maintenance, 08/23/22 15:12:00 EDT, [id number], 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 ONLY PLEASE, 177.8, cm, 06/17/22 10:52:00 [...] oldest [Reference Range]: 1 Height 178 cm (11/19/22 11:01 AM) Weight 109.5 kg (11/19/22 11:01 AM) Social History Social History Type Response Smoking Status Never (less than 100 in lifetime) entered on: 05/14/21 Sex Patient Care team information Care Team Personnel Name: Yaima Brizuela MD Position: S Physician - Primary Care Member Role: PCP Address: Address: [address] [place] [address]- Care Team Related Persons Name: AISHA ESTEVES Address: home [address] [place] [address] Name: CECE ESTEVES Address: [place] [address] Name: CECE NUÑEZ Address: home [address] [place] [address]
--- OUTSIDE RECORDS SUMMARY | 2024-03-27 15:11 | XMS_ITS | Continuity of Care Document ---
Author Organization [facility] Address [address] [place] [address]- Care Team Providers Care Taxation Inspector Name Role Phone Yaima Brizuela MD Primary Care Physician [phone] Encounter [facility] [place] Date(s): 07/30/20 - 08/29/20 [facility] [address] [place], [place] [address] Allergies, Adverse Reactions, [...] 56 tablet, 0 Refills, Acute, 08/20/20 8:36:00EDT, [facility] STORE 72479, 179, cm, 07/18/20 14:54:00 EST, Height, 113.6, [...] Stop 03/02/21 12:22:00 EDT, 05/06/20 12:22:00 EST, [facility] # 302, 1 [...] 3 Refills, Maintenance, 10/10/19 11:17:00 EDT, Tablet, [facility]/pharmacy #[id number], 113.6, kg, 01/22/19 15:29:00 [...] Acute 11/20/20 15:45:00 EDT, 11/21/19 15:42:00 EDT, [facility] # 302, 113.6, kg, 01/22/19 15:29:00 EDT, Dry Weight Start Date: 11/21/19 Stop Date: 11/20/20 Status: Ordered zolpidem 10 mg oral tablet See Instructions, TAKE ONE TABLET BY MOUTH AT BEDTIME NEEDED 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, # 30 tablet, 5 Refills, Maintenance, 07/25/20 12:12:00 EST, [facility] # 302, 179, cm, 07/18/20 14:54:00 EST, Height, 113.6, kg, 01/22/19 15:29:00 EDT, Dry Weight Start Date: 07/25/20 Status: Ordered zolpidem 10 mg oral tablet See Instructions, TAKE ONE TABLET BY MOUTH AT BEDTIME NEEDED 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, # 30 tablet, 5 Refills, Maintenance, 07/24/20 13:33:00 EST, [facility]/pharmacy #[id number], 179, cm, 07/18/20 14:54:00 [...]
--- OUTSIDE RECORDS SUMMARY | 2024-03-27 15:11 | XMS_ITS | Continuity of Care Document ---
Author Organization [facility] Address [address] [place] [address]- Care Team Providers Care Rn Transitional Name Role Phone Yaima Brizuela MD Primary Care Physician [phone] Encounter [facility] [place] Date(s): 11/06/21 - 12/06/21 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 Start [...]
--- OUTSIDE RECORDS SUMMARY | 2024-03-27 15:11 | XMS_ITS | Continuity of Care Document ---
Author Organization [facility] Address [address] [place] [address]- Care Team Providers Care Station Jailer Name Role Phone Yaima Brizuela MD Primary Care Physician [place] [facility] [place] 07/18/20 - 08/17/20 [facility] [address] [place] [address]- Attending Physician: Jason Gonzalez Admitting Physician: AdmtrJason [...] 08/27/20 10:47:00 EDT, 07/30/20 10:47:00 EST, Tablet, [facility]/pharmacy #[id number], Partial fill upon patient request ifthe [...] Stop, 10/25/19 11:51:00 EDT, Shampoo, [facility]/pharmacy #[id number], 1 application Topically Daily, [...] Stop 03/02/21 12:22:00 EDT, 05/06/20 12:22:00 EST, [facility] # 302, 1 [...] Maintenance, 10/10/19 11:17:00 EDT, Tablet, [facility]/pharmacy #[id number], 113.6, kg, 01/22/19 15:29:00 [...] Acute 11/20/20 15:45:00 EDT, 11/21/19 15:42:00 EDT, [facility] # 302, 113.6, kg, 01/22/19 15:29:00 EDT, Dry Weight Start Date: 11/21/19 Stop Date: 11/20/20 Status: Ordered zolpidem 10 mg oral tablet See Instructions, TAKE ONE TABLET BY MOUTH AT BEDTIME NEEDED 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, # 30 tablet, 5 Refills, Maintenance, 07/25/20 12:12:00 EST, [facility] # 302, 179, cm, 07/18/20 14:54:00 EST, Height, 113.6, kg, 01/22/19 15:29:00 EDT, Dry Weight Start Date: 07/25/20 Status: Ordered zolpidem 10 mg oral tablet See Instructions, TAKE ONE TABLET BY MOUTH AT BEDTIME NEEDED 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, # 30 tablet, 5 Refills, Maintenance, 07/24/20 13:33:00 EST, [facility]/pharmacy #[id number], 179, cm, 07/18/20 14:54:00 EST, [...]
--- OUTSIDE RECORDS SUMMARY | 2024-03-27 15:11 | XMS_ITS | Continuity of Care Document ---
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 Migraines(Discharge Diagnosis) - 08/11/23 Attending Physician: Yaima Brizuela MD Allergies, Adverse Reactions, Alerts Substance Reaction Severity Status terazosin DIZZINESS Active Glutens Active Xolair anaphylaxis Active Immunizations Given and Recorded Vaccine Date Status Refusal Reason SARS-CoV-2(COVID-19)mRNA-LNP vac(pom032) 03/18/23 Recorded [id number] 12y+ bivalent booster vax 03/26/22 Recorded SARS-CoV-2 (COVID-19) mRNA BNT-162b2 vac 1 06/25/21 Recorded SARS-CoV-2 (COVID-19) mRNA BNT-162b2 vac 01/03/21 Recorded SARS-CoV-2 (COVID-19) mRNA BNT-162b2 vac 12/13/20 Recorded 1Result Comment: 3rd dose Medications candesartan 4 mg oral tablet 1/2 TO 1 TABLET, By Mouth, Daily, # 90 tablet, 1 Refills, Maintenance, 03/14/23 6:44:00 EDT, [id number], 178, cm, 01/24/23 15:44:00 EDT, Height, 109.5, kg, 06/06/23 21:34:00 EDT, Dry Weight Start Date: 03/14/23 [...] 1 Refills, Maintenance, 08/25/22 15:57:00 EDT, Solution, [facility]/pharmacy #[id number], Partial fill upon patient request [...] 3 Refills, Maintenance, 08/03/23 13:17:00 EST, Tablet, [facility]/pharmacy #[id number], Partial fill upon patient request [...] MOUTH AT BEDTIME NEEDED 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 AURABINDO ACID CONDITIONER, # 30 tablet, 5 Refills, Maintenance, 02/22/23 13:51:00 EDT, [id number], AURABINDO ACID CONDITIONER ONLY PLEASE, 178, cm, 01/24/23 15:44:00 EDT, [...] Service Informant Mast cell activation Discharge Diagnosis 08/11/23 Endometriosis Discharge Diagnosis 08/11/23 Tommy's thyroiditis Discharge Diagnosis 08/11/23 Migraines Discharge Diagnosis 08/11/23 Vital Signs Most recent to oldest [Reference Range]: 1 Height 178 cm (08/11/23 10:59 AM) Weight 113 kg (08/11/23 10:59 AM) Oxygen Saturation [94-100 %] 97 % (08/11/23 10:59 AM) Pulse Rate [55-90 bpm] 86 bpm (08/11/23 10:59 AM) Body Mass Index [18.5-24.99 kg/m2] 35.66 kg/m2 *>HHI* (08/11/23 10:59 AM) Blood Pressure [90-138/55-84 mm Hg] 113/ 75mm Hg (08/11/23 10:59 AM) Temperature [96.8-100.4 DegF] 99 DegF (08/11/23 10:59 AM) Mode of Delivery (Oxygen) Room air (08/11/23 10:59 AM) Blood pressure sites Arm, left (08/11/23 10:59 AM) Temperature Route Temporal (08/11/23 10:59 AM) Weight Obtained Via Standing scale (08/11/23 10:59 AM) Social History Social History Type Response Smoking Status Never (less than 100 in lifetime) entered on: 05/14/21 Sex Note * Alyson Mcmahan: PERFORM, SIGN, VERIFY Event Display: Patient Education/Instruction Authored Date: [id number] [facility] *[facility] Clinical Summary Name NITA ESTEVES Age 38 Years 1985 PCP Yaima Brizuela MD PCP Visit Date 08/11/2023 10:56:00 Additional Instructions: Scheduled Appointments?? Future Appointments ?*[facility] [address],??[place],??[address] ?Phone:??--?Fax:??-- ?Appt. Date:??12/19/2023?9:15 AM ?Scheduled Provider:??HEATHER Hendrickson , Brianna Benedict Follow-Up Instructions ?? Diagnosis Endometriosis, unspecified; Autoimmune thyroiditis; Migraine, unspecified, not intractable, withoutstatus migrainosus; Mast cell activation, unspecified Medications: Please continue your medications until treatment is completed or stopped by your provider. Discuss any questions related to medications with your provider. Medications to Continue with No Changes These medications were not printed or sent to your pharmacy Ascorbic Acid (Vitamin C 1000 mg oral tablet) 1 tab(s) Oral twice a day. Next Dose: atogepant (Qulipta 30 mg oral tablet) 1 tab(s) Oral Daily for 90 Days. Refills: 3. Next Dose: Benzonatate (Tessalon Perles) 100 Milligram Oral 3 times a day. Next Dose: bifidobacterium-lactobacillus (Probiotic Formula) 1 capsule Oral Daily. Next Dose: Candesartan (candesartan 4 mg oral tablet) 1/2 TO 1 TABLET Oral Daily. Refills: 1. Next Dose: Cetirizine (ZyrTEC 10 mg oral tablet) 2 tab(s) Oral Daily. Next Dose: Cholecalciferol (Vitamin D3 10,000 intl units oral capsule) 1 capsule Oral every week. Next Dose: ciclesonide nasal (Zetonna 37 mcg/inh nasal aerosol) 1 spray(s) Nares, Both Daily. Refills: 5. Next Dose: Cranberry Next Dose: Cyanocobalamin (Vitamin B12) 5,000 Microgram. Next Dose: Ethinyl Estradiol / Norethindrone (Junel 07/05 oral tablet) Next Dose: Fluconazole (fluconazole 150 mg oral tablet) 1 tab(s) Oral Daily. Next Dose: Folic Acid 100 Microgram Daily. Next Dose: HydrOXYzine (hydrOXYzine hydrochloride 25 mg oral tablet) 1 capsule Oral Daily at Bedtime as neededfor itching for 10 Days. Next Dose: Ipratropium Nasal (ipratropium nasal 21 mcg/inh spray) Next Dose: Ketotifen Ophthalmic (ketotifen 0.025% ophthalmic solution) 1 Drops Both eyes every 8 hours. Refills: 1. Next Dose: Liothyronine (liothyronine 25 mcg oral tablet) TAKES 4 TABS BY Mouth Daily. Next Dose: Loratadine (Claritin 10 mg oral tablet) 2 tab(s) Oral Daily. Next Dose: Miscellaneous Rx (D-mannose 2g daily) Next Dose: Multivitamin (Vitamin B Complex oral tablet, extended release) Oral Daily. Next Dose: [place]-3 Polyunsaturated Fatty Acids (Fish Oil) Oral. Next Dose: Ondansetron (ondansetron 4 mg oral tablet, disintegrating) DISSOLVE 1 TABLET IN MOUTH EVERY 8 HOURSAS NEEDED FOR NAUSEA AND VOMITING (INS ONLY COVERS 1 DAILY). Next Dose: Phytonadione (Vitamin K1) 100mcg daily. Next Dose: Zolpidem (zolpidem 10 mg oral tablet) TAKE 1 TABLET BY MOUTH AT BEDTIME NEEDED 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 AURABINDO ACID CONDITIONER. Refills: 5. Next Dose: Allergy Info:?? Xolair; Glutens; terazosin Medications Given This Visit Future Orders ?Comprehensive Metabolic Panel? Order Date:08/11/23?- Complete on or after?08/11/23 ?TSH? Order Date:08/11/23?- Complete on or after?08/11/23 ?Free T4? Order Date:08/11/23?- Complete on or after?08/11/23 ?T3 Total? Order Date:08/11/23?- Complete on or after?08/11/23 ?T3 Free? Order Date:08/11/23?- Complete on or after?08/11/23 ?T3 Reverse? Order Date:08/11/23?- Complete on or after?08/11/23 ?Thyroglobulin Ab? Order Date:08/11/23?- Complete on or after?08/11/23 ?Thyroid Antimicrosomal Ab? Order Date:08/11/23?- Complete on or after?08/11/23 ?Vitamin D 25 Hydroxy Level? Order Date:08/11/23?- Complete on or after?08/11/23 ?CBC w/ Differential? Order Date:08/11/23?- Complete on or after?08/11/23 Vital Signs Height 178 cm Weight 113 kg BMI 35.66 kg/m2 Blood Pressure 113 mm Hg/75 mm Hg Temperature 99 DegF Pulse Rate 86 bpm Respiratory Rate 02 Sat Mode of Delivery 97 %/Room air You can now view a summary of your hospital visit from the comfort of your home through a free online portal called [employer]. [employer] is a website that allows you to securely view your medical information including discharge summary, medications and follow-up visits. ??You can alsosend a secure electronic message to your doctor???s office to request appointments, renew medications or just ask a question. You can enroll at [email or web address] or register during your next office visit. [...] primary care provider, you may find a [facility] provider by calling [facility] Link at [phone]. [facility], in keeping with [facility] guidance, no longer requires face masks for staff, patientsor visitors in most situations. Similar to time spent indoors at other locations, there is the chance that you were exposed to respiratory viruses during your time with us (such as flu or COVID-19).? If you develop symptoms concerning for a viral respiratory infection, please seek testing (and treatment if indicated) from your medical provider or home test kit. For information about the plan of care [...] Yaima Brizuela MD Position: [facility] Physician - Primary Care Member Role: PCP Address: Address: [address] [place] [address]- [place] Care Team Related Persons Name: AISHA ESTEVES Address: home [address] [address] Name: CECE ESTEVES Address: [place] [address] Name: CECE NUÑEZ Address: home [address] [place] [address]
--- OUTSIDE RECORDS SUMMARY | 2024-03-27 15:11 | XMS_ITS | Continuity of Care Document ---
Author Organization [facility] Address [address] [place] [address]- Care Team Providers Care Sanipractic Physician Name Role Phone Yaima Brizuela MD Primary Care Physician [phone] Encounter [place] Date(s): 02/24/21 - 03/26/21 [facility] [address] [place] [address]- Allergies, Adverse Reactions, Alerts Substance Reaction Severity [...] tablet, 0 Refills, Acute, 08/20/20 8:36:00EDT, [facility], 179, cm, 07/18/20 14:54:00 EST, Height, 113.6, [...] Stop, 10/25/19 11:51:00 EDT, Shampoo, [facility]/pharmacy #[id number], 1 application Topically Daily, 113.6, kg, [...] Maintenance, 12/09/20 11:35:00 EDT, Tablet, [facility]/pharmacy #[id number], 179, cm, 11/27/20 14:03:00 EDT, Height, 121.1, kg, 10/22/20 14:46:00 EDT, Dry Weight Start Date: 12/09/20 Status: Ordered rizatriptan 5 mg oral tablet 1 tablet = 5 mg, By Mouth, Daily, PRN for migraine headache, may repeat dose every 2 hours up to a maximum of 3, # 30 tablet, 5 Refills, Maintenance, 10/09/20 16:46:00 EDT, Tablet, [facility]/pharmacy [...] 5 Refills, Maintenance, 07/24/20 13:33:00 EST, [facility]/pharmacy #[id number], 179, cm, 07/18/20 14:54:00 EST, Height, [...] tablet, 5 Refills, Maintenance, 02/17/21 15:40:00 EDT, [facility] # 302, 179, cm, 02/12/21 11:02:00 [...]
--- OUTSIDE RECORDS SUMMARY | 2024-03-27 15:11 | XMS_ITS | Continuity of Care Document ---
Author Organization [facility] Address [address] [place] [address]- Care Team Providers Care Law Professor Name Role Phone Chata HUGHES, Yaima Reed Primary Care Physician [phone] En[place] [facility] [place] Date(s): 08/23/23 - 09/22/23 [facility] [address] [place] [address]- Allergies, Adverse Reactions, Alerts Substance Reaction Severity Status terazosin DIZZINESS Active Glutens Active Xolair anaphylaxis Active Immunizations Given and Recorded Vaccine Date Status Refusal Reason SARS-CoV-2(COVID-19)mRNA-LNP vac(tia404) 03/18/23 Recorded [id number] 12y+ bivalent booster vax 03/26/22 Recorded SARS-CoV-2 (COVID-19) mRNA BNT-162b2 vac 1 06/25/21 Recorded SARS-CoV-2 (COVID-19) mRNA BNT-162b2 vac 01/03/21 Recorded SARS-CoV-2 (COVID-19) mRNA BNT-162b2 vac 12/13/20 Recorded 1Result Comment: 3rd dose Medications candesartan 4 mg oral tablet 1/2 TO 1 TABLET, By Mouth, Daily, # 90 tablet, 1 Refills, Maintenance, 03/14/23 6:44:00 EDT, [facility], 178, cm, 01/24/23 15:44:00 EDT, Height, 109.5, [...] 3 Refills, Maintenance, 08/03/23 13:17:00 EST, Tablet, [facility]/pharmacy #0859, Partial [...] Gm, 5 Refills, Maintenance, 02/07/23 16:36:00 EDT, [facility]/pharmacy#0859, Partial fill upon patient request if the prescription is for a schedule II opioid drug., 178, cm, 01/24/23 15:44:00 EDT, Height, 109.5, kg, 06/0... Start Date: 02/07/23 Status: Ordered zolpidem 10 mg oral tablet See Instructions, TAKE 1 TABLET BY MOUTH AT BEDTIME NEEDED 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 AURABINDO INFLATED PAD BUFFER, # 30 tablet, 5 Refills, Maintenance, 08/25/23 12:51:00 EDT, [facility]/pharmacy #[id number], AURABINDO INFLATED PAD BUFFER ONLY PLEASE, 178, cm, 08/11/23 10:59:00 EST, [...] Primary Care Member Role: PCP Address: Address: [address] [place] [address] Care Team Related Persons Name: DANIELITO AISHA Address: home [address] [facility] [address] [place] [address] Name: CECE ESTEVES Address: [place] [address] Name: CECE NUÑEZ Address: home [address] [place] [address]
--- OUTSIDE RECORDS SUMMARY | 2024-03-27 15:11 | XMS_ITS | Continuity of Care Document ---
Author Organization [facility] Address [address] [place] [address]- Care Team Providers Care Veneer Jointer Returner Name Role Phone Yaima Brizuela MD Primary Care Physician Encounter [facility] [place] Date(s): 06/11/20 - 07/11/20 [facility] [address] [place], [place] [address] [place] Allergies, Adverse Reactions, Alerts Substance Reaction Severity [...] Refills, Soft Stop, 10/25/19 11:51:00 EDT, Shampoo, [facility]/pharmacy #[id number], 1 application Topically [...] 12:22:00 EDT, 05/06/20 12:22:00 EST, [facility] # 302, 1 tablet... [...] 3 Refills, Maintenance, 10/10/19 11:17:00 EDT, Tablet, [facility]/pharmacy #0859, 113.6, kg, 01/22/19 [...] Acute 11/20/20 15:45:00 EDT, 11/21/19 15:42:00 EDT, [facility] # 302, 113.6, kg, 01/22/19 15:29:00 EDT, Dry Weight Start Date: 11/21/19 Stop Date: 11/20/20 Status: Ordered zolpidem 10 mg oral tablet See Instructions, TAKE ONE TABLET BY MOUTH AT BEDTIME NEEDED 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, # 30 tablet, 3 Refills, Maintenance, 04/21/20 17:29:00 EST, [facility] # 302, 179, cm, 04/07/20 11:04:00 [...]
--- OUTSIDE RECORDS SUMMARY | 2024-03-27 15:11 | XMS_ITS | Continuity of Care Document ---
Author Organization [facility] Address [address] [place] [address]- Care Team Providers Care Inspection Supervisor Name Role Phone Yaima Brizuela MD Primary Care Physician Encounter [facility] [place] Date(s): 01/21/20 - 02/20/20 [facility] [address] [place] [address] [facility] Allergies, Adverse Reactions, Alerts Substance [...] Refills, Soft Stop, 10/25/19 11:51:00 EDT, Shampoo, [facility]/pharmacy #[id number], 1 application Topically Daily, 113.6, kg, [...] 3 Refills, Maintenance, 10/10/19 11:17:00 EDT, Tablet, [facility]/pharmacy #0859, 113.6, kg, 01/22/19 15:29:00 EDT, Dry [...] Acute 11/20/20 15:45:00 EDT, 11/21/19 15:42:00 EDT, [facility] # 302, 113.6, kg, 01/22/19 [...]
--- OUTSIDE RECORDS SUMMARY | 2024-03-27 15:11 | XMS_ITS | Continuity of Care Document ---
Author Organization [facility] Address [address] [place] [address]- Care Team Providers Care Computer Installation Engineer Name Role Phone Chata HUGHES, Yaima Reed Primary Care Physician [phone] Encounter [facility] [place] Date(s): 12/31/21 - 01/30/22 [facility] [address] [place] [address]- Allergies, Adverse Reactions, Alerts Substance Reaction Severity [...] Soft Stop, 10/25/19 11:51:00 EDT, Shampoo, [facility]/pharmacy #0859, 1 application Topically Daily, 113.6, kg, [...] MOUTH AT BEDTIME NEEDED 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 AURABINDO TRANSITIONAL STUDIES INSTRUCTOR, # 30 tablet, 5 Refills, Maintenance, 11/25/21 16:15:00 EDT, [facility][id number], AURABINDO TRANSITIONAL STUDIES INSTRUCTOR ONLY PLEASE, 177.8, cm, 11/20/21 14:05... Start [...] Team Personnel Name: Yaima Brizuela MD Address: [address] [place] [address]
--- OUTSIDE RECORDS SUMMARY | 2024-03-27 15:11 | XMS_ITS | Continuity of Care Document ---
Author Organization [facility] Address [address] [place] [address]- Care Team Providers Care Insurance Clerk Name Role Phone Chata HUGHES, Yaima Reed Primary Care Physician [phone] Encounter [facility] [place] Date(s): 11/28/20 - 12/28/20 [facility] [address] [place], [place] [address] Allergies, Adverse Reactions, Alerts Substance [...] Acute, 08/20/20 8:36:00EDT, [facility], 179, cm, 07/18/20 14:54:00 EST, Height, 113.6, [...] Physician Stop 03/02/21 12:22:00 EDT, 05/06/20 12:22:00 [facility] # 302, 1 [...] tablet, 5 Refills, Maintenance, 07/25/20 12:12:00 EST, [facility] # 302, 179, cm, 07/18/20 14:54:00 [...]
--- OUTSIDE RECORDS SUMMARY | 2024-03-27 15:11 | XMS_ITS | Continuity of Care Document ---
Author Organization [facility] Address [address] [place] [address]- Care Team Providers Care Continuous Improvement Specialist Name Role Phone Yaima Brizuela MD Primary Care Physician [place] [facility] [place]11[place]20 [place] 07/11/20 [facility] [address] [place], [place] [address] Allergies, Adverse Reactions, Alerts Substance [...] Soft Stop, 10/25/19 11:51:00 EDT, Shampoo, [facility]/pharmacy #0859, 1 application Topically Daily, [...] Stop 03/02/21 12:22:00 EDT, 05/06/20 12:22:00 EST, [facility] # 302, 1 tablet... Start Date: [...] Acute 11/20/20 15:45:00 EDT, 11/21/19 15:42:00 EDT, [facility] # 302, 113.6, kg, 01/22/19 15:29:00 EDT, Dry Weight Start Date: 11/21/19 Stop Date: 11/20/20 Status: Ordered zolpidem 10 mg oral tablet See Instructions, TAKE ONE TABLET BY MOUTH AT BEDTIME NEEDED 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, # 30 tablet, 3 Refills, Maintenance, 04/21/20 17:29:00 EST, [facility] # 302, 179, cm, 04/07/20 11:04:00 [...]
--- OUTSIDE RECORDS SUMMARY | 2024-03-27 15:11 | XMS_ITS | Continuity of Care Document ---
Author Organization [facility] Address [address] [place] [address]- Care Team Providers Care Cosmetology Professor Name Role Phone Yaima Brizuela MD Primary Care Physician [phone] Encounter [facility] [place] Date(s): 02/27/20 - 03/28/20 [facility] [address] [place] [address]- [facility] Allergies, Adverse Reactions, Alerts Substance Reaction [...] 3 Refills, Maintenance, 10/10/19 11:17:00 EDT, Tablet, [facility]/pharmacy #0859, 113.6, kg, 01/22/19 [...] Acute 11/20/20 15:45:00 EDT, 11/21/19 15:42:00 EDT, [facility] # 302, 113.6, kg, [...]
--- OUTSIDE RECORDS SUMMARY | 2024-03-27 15:11 | XMS_ITS | Continuity of Care Document ---
Author Organization [facility] Address [address] [place] [address]- Care Team Providers Care Bar Roller Name Role Phone Yaima Brizuela MD Primary Care Physician Encounter [facility] [place] [id number] Date(s): 10/25/19 - 11/01/19 [facility] [address] [place] [address]- [facility] Encounter Diagnosis Endometriosis(Discharge Diagnosis) - 10/25/19 Tommy's thyroiditis(Discharge Diagnosis) - 10/25/19 Insomnia(Discharge Diagnosis) - 10/25/19 Attending Physician: Yaima Brizuela MD Allergies, Adverse [...] 19:00:58 EDT Start Date: 01/22/19 Status: Ordered clindamycin 1% topical lotion 1 application, Topically, 2 times a day, # 60 mL, 2 Refills, Maintenance, 09/24/19 14:55:00 EDT, Lotion, [facility]/pharmacy #0859, 1 application Topically 2 times a day,x30 days, 113.6, kg, 01/22/19 15:29:00 EDT, Dry Weight Start Date: 09/24/19 Stop Date: 12/23/19 Status: Ordered D MANNOSE 1 GRAM D [...] Refills, Soft Stop, 10/25/19 11:51:00 EDT, Shampoo, [facility]/pharmacy #0859, 1 application Topically Daily, 113.6, kg, 01/22/19 15:29:00 EDT, Dry Weight Start Date: 10/25/19 Status: Ordered KETOTIFEN TWICE DAILY KETOTIFEN TWICE DAILY, Refills 0, Maintenance, 09/24/19 14:59:00 EDT, Supply Start Date: 09/24/19 Status: Ordered liothyronine 25 mcg oral tablet See Instructions, TAKES 4 TABS BY Mouth Daily, 0 Refills, Maintenance, 03/05/19 15:16:09 EDT, Tablet Start Date: 03/05/19 Status: Ordered Melatonin 3 mg oral tablet 1 tablet, By Mouth, Daily at bedtime, PRN NEEDED 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, for 30 days, # 30 tablet, 5 Refills, Acute, 10/26/19 8:04:00 EDT, [facility]ORE 287[facility], 30, TAKE 1 TABLET BY MOUTH DAILY AT BEDTIME FOR 30DAYS NEEDED 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, 113.6, kg, 01/22/19 15... Start Date: 10/26/19 Stop Date: 11/25/19 Status: Ordered Monural 3 gm oral powder for reconstitution 1 DOSE EVERY 48 HOURS DIRECTED Start Date: 01/22/19 Status: Ordered Probiotic Formula 1 capsule, By Mouth, Daily, 0 Refills, Maintenance, 01/22/19 19:02:57 EDT Start Date: 01/22/19 Status: Ordered riboflavin 100 mg oral tablet See Instructions, 4 tablet By Mouth Daily, # 100 tablet, 3 Refills, Maintenance, 10/10/19 11:17:00 EDT, Tablet, [facility]/pharmacy #0859, 113.6, kg, 01/22/19 15:29:00 EDT, Dry Weight Start Date: 10/10/19 Status: Ordered Vitamin B12 = 5,000 mcg, [...] Lyme disease(Confirmed) Active Mast cell activation(Confirmed) Active Diagnosis Diagnosis Type Effective Dates Health Status Clinical Service Informant Endometriosis Discharge Diagnosis 10/25/19 Tommy's thyroiditis Discharge Diagnosis 10/25/19 Insomnia Discharge Diagnosis 10/25/19
--- OUTSIDE RECORDS SUMMARY | 2024-03-27 15:11 | XMS_ITS | Continuity of Care Document ---
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 Basal cell carcinoma(Discharge Diagnosis) - 12/18/19 Mast cell activation(Discharge Diagnosis) - 12/18/19 Attending Physician: Yaima Brizuela MD Allergies, Adverse [...] 3 Refills, Maintenance, 10/10/19 11:17:00 EDT, Tablet, [facility]/pharmacy #[id number], 113.6, kg, 01/22/19 15:29:00 [...] Acute 11/20/20 15:45:00 EDT, 11/21/19 15:42:00 EDT, [facility] # 302, 113.6, kg, 01/22/19 [...] Clinical Service Informant Amos-Danlos syndrome Discharge Diagnosis 12/18/19 Endometriosis Discharge Diagnosis 12/18/19 Mast cell activation Discharge Diagnosis 12/18/19 Basal cell carcinoma Discharge Diagnosis 12/18/19 Squamous cell carcinoma, face Discharge Diagnosis 12/18/19
--- OUTSIDE RECORDS SUMMARY | 2024-03-27 15:11 | XMS_ITS | Continuity of Care Document ---
Author Organization [facility] Address [address] [place] [address]- Care Team Providers Care Manual Arts Therapist Name Role Phone Yaima Brizuela MD Primary Care Physician [phone] [place] [facility] [place] [facility] [place] 11/04/21 - 12/04/21 [facility] [address] [place], [place] [address] Allergies, Adverse Reactions, Alerts Substance Reaction [...] Refills, Soft Stop, 10/25/19 11:51:00 EDT, Shampoo, [facility]/pharmacy #[id number], 1 application Topically Daily, 113.6, [...] MOUTH AT BEDTIME NEEDED 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 AURABINDO DERMATOLOGY PHYSICIAN ASSISTANT, # 30 tablet, 5 Refills, Maintenance, 11/25/21 16:15:00 EDT, [id number], AURABINDO DERMATOLOGY PHYSICIAN ASSISTANT ONLY PLEASE, 177.8, cm, 11/20/21 14:05... Start [...]
--- OUTSIDE RECORDS SUMMARY | 2024-03-27 15:11 | XMS_ITS | Continuity of Care Document ---
Author Organization [facility] Address [address] [place] [address]- Care Team Providers Care Research Spec Name Role Phone Chata HUGHES, Yaima Reed Primary Care Physician [place] [facility] [place] 12[place]16/21 - 01/15/22 [facility] [address] [place] [address]- Allergies, Adverse Reactions, Alerts Substance Reaction Severity [...] MOUTH AT BEDTIME NEEDED 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 AURABINDO INCIDENT ENGINEER, # 30 tablet, 5 Refills, Maintenance, 11/25/21 16:15:00 EDT, [id number], AURABINDO INCIDENT ENGINEER ONLY PLEASE, 177.8, cm, 11/20/21 14:05... Start [...]
--- OUTSIDE RECORDS SUMMARY | 2024-03-27 15:11 | XMS_ITS | Continuity of Care Document ---
Author Organization [facility] Address [address] [place] [address]- Care Team Providers Care Senior Interactive Producer Name Role Phone Chata HUGHES, Yaima Reed Primary Care Physician [place] [facility] [place] [id number] Date(s): 08/25/23 - 09/24/23 [facility] [address] [place] [address]- Allergies, Adverse Reactions, Alerts Substance Reaction Severity Status terazosin DIZZINESS Active Glutens Active Xolair anaphylaxis Active Immunizations Given and Recorded Vaccine Date Status Refusal Reason SARS-CoV-2(COVID-19)mRNA-LNP vac([id number]) 03/18/23 Recorded [id number] 12y+ bivalent booster vax 03/26/22 Recorded SARS-CoV-2 (COVID-19) mRNA BNT-162b2 vac 1 06/25/21 Recorded SARS-CoV-2 (COVID-19) mRNA BNT-162b2 vac 01/03/21 Recorded SARS-CoV-2 (COVID-19) mRNA BNT-162b2 vac 12/13/20 Recorded 1Result Comment: 3rd dose Medications candesartan 4 mg oral tablet 1/2 TO 1 TABLET, By Mouth, Daily, # 90 tablet, 1 Refills, Maintenance, 03/14/23 6:44:00 EDT, [facility], 178, cm, 01/24/23 15:44:00 EDT, Height, 109.5, [...] Maintenance, 08/25/22 15:57:00 EDT, Solution, [facility]/pharmacy #[id number], Partial fill upon patient [...] Maintenance, 08/03/23 13:17:00 EST, Tablet, [facility]/pharmacy #[id number], Partial fill upon patient [...] 5 Refills, Maintenance, 02/07/23 16:36:00 EDT, [facility]/pharmacy#0859, Partial fill upon patient request if the prescription is for a schedule II opioid drug., 178, cm, 01/24/23 15:44:00 EDT, Height, 109.5, kg, 06/0... Start Date: 02/07/23 Status: Ordered zolpidem 10 mg oral tablet See Instructions, TAKE 1 TABLET BY MOUTH AT BEDTIME NEEDED 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 AURABINDO WATER CARTER, # 30 tablet, 5 Refills, Maintenance, 08/25/23 12:51:00 EDT, [facility]/pharmacy #[id number], AURABINDO WATER CARTER ONLY PLEASE, 178, cm, 08/11/23 10:59:00 EST, [...] Personnel Name: Chata HUGHES, Yaima Reed Position: [facility] Physician - Primary Care Member Role: PCP Address: Address: [address] [place] [address]- Care Team Related Persons Name: AISHA ESTEVES Address: home [address] [place] [address] Name: CECE ESTEVES Address: [place] [address] Name: CECE NUÑEZ Address: home [address] [place] [address]
--- OUTSIDE RECORDS SUMMARY | 2024-03-27 15:11 | XMS_ITS | Continuity of Care Document ---
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 Start [...] 3 Refills, Maintenance, 10/10/19 11:17:00 EDT, Tablet, [facility]/pharmacy #0859, 113.6, kg, 01/22/19 15:29:00 EDT, [...] Acute 11/20/20 15:45:00 EDT, 11/21/19 15:42:00 EDT, [facility] # 302, 113.6, kg, 01/22/19 15:29:00 EDT, Dry Weight Start Date: 11/21/19 Stop Date: 11/20/20 Status: Ordered zolpidem 10 mg oral tablet See Instructions, TAKE ONE TABLET BY MOUTH AT BEDTIME NEEDED 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, # 30 tablet, 5 Refills, Maintenance, 07/25/20 12:12:00 EST, [facility] # 302, 179, cm, 07/18/20 14:54:00 EST, Height, 113.6, kg, 01/22/19 15:29:00 EDT, Dry Weight Start Date: 07/25/20 Status: Ordered zolpidem 10 mg oral tablet See Instructions, TAKE ONE TABLET BY MOUTH AT BEDTIME NEEDED 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, # 30 tablet, 5 Refills, Maintenance, 07/24/20 13:33:00 EST, [facility]/pharmacy #0859, 179, cm, 07/18/20 14:54:00 EST, [...] Effective Dates Health Status Clinical Service Informant Recurrent UTI Discharge Diagnosis 09/26/20 Migraine Discharge Diagnosis 09/26/20 Mast cell activation Discharge Diagnosis 09/26/20
--- OUTSIDE RECORDS SUMMARY | 2024-03-27 15:11 | XMS_ITS | Continuity of Care Document ---
Author Organization [facility] Address [address] [place] [address]- Care Team Providers Care Irrigation Manager Name Role Phone Yaima Brizuela MD Primary Care Physician [phone] En[place] [facility] [place] Date(s): 11/11/20 - 12/11/20 [facility] [address] [place], [place] [address] Allergies, Adverse Reactions, Alerts [...] 56 tablet, 0 Refills, Acute, 08/20/20 8:36:00EDT, [facility], 179, cm, 07/18/20 14:54:00 EST, Height, 113.6, [...] Soft Stop, 10/25/19 11:51:00 EDT, Shampoo, [facility]/pharmacy #0859, 1 application Topically Daily, 113.6, [...] Physician Stop 03/02/21 12:22:00 EDT, 05/06/20 12:22:00 [facility], [facility] # 302, 1 tablet... Start [...] 3 Refills, Maintenance, 12/09/20 11:35:00 EDT, Tablet, [facility]/pharmacy #0859, 179, cm, 11/27/20 14:03:00 EDT, Height, 121.1, kg, 10/22/20 14:46:00 EDT, Dry Weight Start Date: 12/09/20 Status: Ordered rizatriptan 5 mg oral tablet 1 tablet = 5 mg, By Mouth, Daily, PRN for migraine headache, may repeat dose every 2 hours up to a maximum of 3, # 30 tablet, 5 Refills, Maintenance, 10/09/20 16:46:00 EDT, Tablet, [facility]/pharmacy #0859, Partial fill [...] tablet, 5 Refills, Maintenance, 07/25/20 12:12:00 EST, [facility] # [facility], 179, cm, 07/18/20 14:54:00 [...]
--- OUTSIDE RECORDS SUMMARY | 2024-03-27 15:11 | XMS_ITS | Continuity of Care Document ---
Author Organization [facility] Address [address] [place] [address]- Care Team Providers Care Form Designer Name Role Phone Yaima Brizuela MD Primary Care Physician [place] [facility] [place] 02/12/20 - 03/13/20 [facility] [address] [place] [address]- [facility] Allergies, Adverse Reactions, Alerts Substance Reaction Severity [...] Acute 11/20/20 15:45:00 EDT, 11/21/19 15:42:00 EDT, [facility] # 302, 113.6, kg, 01/22/19 [...]
--- OUTSIDE RECORDS SUMMARY | 2024-03-27 15:11 | XMS_ITS | Continuity of Care Document ---
Author Organization [facility] Address [address] [place] [address]- Care Team Providers Care Edger Hand Name Role Phone Yaima Brizuela MD Primary Care Physician [place] [facility] [place] 11/27/20 - 12/04/20 [facility] [address] [place], [place] [address] Attending Physician: Tana Verduzco MD Allergies, Adverse Reactions, Alerts Substance Reaction [...] 0 Refills, Maintenance, 10/07/20 8:17:00 EDT, Tablet, [facility]/pharmacy #[id number], Partial fill upon patient request [...] 56 tablet, 0 Refills, Acute, 08/20/20 8:36:00EDT, [facility] 99338, 179, cm, 07/18/20 14:54:00 EST, Height, 113.6, [...] Refills, Soft Stop, 10/25/19 11:51:00 EDT, Shampoo, [facility]/pharmacy #0859, 1 application Topically Daily, 113.6, [...] Physician Stop 03/02/21 12:22:00 EDT, 05/06/20 12:22:00 [facility], [facility] # 302, [...] 3 Refills, Maintenance, 10/10/19 11:17:00 EDT, Tablet, [facility]/pharmacy #0859, 113.6, kg, 01/22/19 15:29:00 EDT, Dry Weight Start Date: 10/10/19 Status: Ordered rizatriptan 5 mg oral tablet 1 tablet = 5 mg, By Mouth, Daily, PRN for migraine headache, may repeat dose every 2 hours up to a maximum of 3, # 30 tablet, 5 Refills, Maintenance, 10/09/20 16:46:00 EDT, Tablet, [facility]/pharmacy #[id number], Partial fill upon patient request [...] Recurrent UTI(Confirmed) Active Sacroiliac joint pain(Confirmed) Active Vital Signs Most recent to oldest [Reference Range]: 1 Height 179 cm (11/27/20 2:03 PM) Oxygen Saturation [94-100 %] 99 % (11/27/20 2:03 PM) Pulse Rate [55-90 bpm] 100 bpm *H* (11/27/20 2:03 PM) Blood Pressure [90-138/55-84 mm Hg] 124/ 77mm Hg (11/27/20 2:03 PM) Respiratory Rate [16-30 br/min] 21 br/mi n (11/27/20 2:03 PM) Temperature [96.8-100.4 DegF] 98.7 DegF (11/27/20 2:03 PM) Mode of Delivery (Oxygen) Room air (11/27/20 2:03 PM) Blood pressure sites Arm, left (11/27/20 2:03 PM) Temperature Route Temporal (11/27/20 2:03 PM)
--- OUTSIDE RECORDS SUMMARY | 2024-03-27 15:11 | XMS_ITS | Continuity of Care Document ---
Author Organization [facility] Address [address] [place] [address]- Care Team Providers Care Bond Runner Name Role Phone Chata HUGHES, Yaima Reed Primary Care Physician [place] [facility] [place](s[place] 11/11/22 - 12/11/22 [facility] [address] [place] [address]- Allergies, Adverse Reactions, Alerts Substance Reaction Severity Status terazosin DIZZINESS Active Glutens Active Xolair anaphylaxis Active Immunizations Given and Recorded Vaccine Date Status Refusal Reason [id number] 12y+ bivalent booster vax 03/26/22 Recorded SARS-CoV-2 [...] Refills, Maintenance, 11/10/22 15:49:00 EDT, Tablet, [id number], Partial fill upon patient request if the [...] 1 Refills, Maintenance, 08/25/22 15:57:00 EDT, Solution, [facility]/pharmacy #0859, Partial fill upon patient request [...] MOUTH AT BEDTIME NEEDED 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 AURABINDO CLEARANCE COORDINATOR, # 30 tablet, 5 Refills, Maintenance, 08/23/22 15:12:00 EDT, [id number], AURABINDO CLEARANCE COORDINATOR ONLY PLEASE, 177.8, cm, 06/17/22 10:52:00 EST,... [...] Team Personnel Name: Yaima Brizuela MD Position: [facility] Physician - Primary Care Member Role: PCP Address: Address: [address] [place] [address]- Care Team Related Persons Name: AISHA ESTEVES Address: home [address] [address] Name: CECE ESTEVES Address: [place] [address] Name: CECE NUÑEZ Address: home [address] [place] [address]
--- OUTSIDE RECORDS SUMMARY | 2024-03-27 15:12 | XMS_ITS | Continuity of Care Document ---
Author Organization [facility] Address [address] [place] [address]- Care Team Providers Care Lead Database Developer Name Role Phone Yaima Brizuela MD Primary Care Physician [place] [facility] [place] 07/[place]/20 - 08/29/20 [facility] [address] [place], [place] [address] Allergies, Adverse Reactions, Alerts Substance Reaction [...] Refills, Acute, 08/20/20 8:36:00EDT, [facility], 179, cm, 07/18/20 14:54:00 EST, Height, 113.6, [...] 03/02/21 12:22:00 EDT, 05/06/20 12:22:00 EST, [facility] # 302, 1 tablet... Start Date: [...] 11/20/20 15:45:00 EDT, 11/21/19 15:42:00 EDT, [facility] # 302, 113.6, kg, 01/22/19 15:29:00 EDT, Dry Weight Start Date: 11/21/19 Stop Date: 11/20/20 Status: Ordered zolpidem 10 mg oral tablet See Instructions, TAKE ONE TABLET BY MOUTH AT BEDTIME NEEDED 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, # 30 tablet, 5 Refills, Maintenance, 07/25/20 12:12:00 EST, [facility] # 302, 179, cm, 07/18/20 14:54:00 [...]
--- OUTSIDE RECORDS SUMMARY | 2024-03-27 15:12 | XMS_ITS | Continuity of Care Document ---
Author Organization [facility] Address [address] [place] [address]- Care Team Providers Care Link Assembler Name Role Phone Yaima Brizuela MD Primary Care Physician [place] [facility] [place] 12/03/22 - 01/02/23 [facility] [address] [place], [place] [address] Allergies, Adverse Reactions, Alerts Substance Reaction Severity Status terazosin DIZZINESS Active Glutens Active Xolair anaphylaxis Active Immunizations Given and Recorded Vaccine Date Status Refusal Reason [id number] 12y+ bivalent booster vax 03/26/22 Recorded SARS-CoV-2 [...] Refills, Maintenance, 11/10/22 15:49:00 EDT, Tablet, [id number], Partial fill upon patient request if the [...] Refills, Soft Stop, 10/25/19 11:51:00 EDT, Shampoo, [facility]/pharmacy #0859, 1 application Topically Daily, 113.6, kg, 01/22/19 15:29:00 EDT, Dry Weight Start Date: 10/25/19 Status: Ordered ketotifen 0.025% ophthalmic solution 1 drops, Eyes, Both, Every 8 hours, # 7.5 mL, 1 Refills, Maintenance, 08/25/22 15:57:00 EDT, Solution, [facility]/pharmacy #0859, Partial fill upon patient [...] MOUTH AT BEDTIME NEEDED 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 [...] Team Personnel Name: Yaima Brizuela MD Position: [facility] Physician - Primary Care Member Role: PCP Address: Address: [address] [place] [address]- Care Team Related Persons Name: AISHA ESTEVES Address: home [address] [place] [address] Name: CECE ESTEVES Address: [place] [address] Name: CECE NUÑEZ Address: home [address] [place] [address]
--- OUTSIDE RECORDS SUMMARY | 2024-03-27 15:12 | XMS_ITS | Continuity of Care Document ---
Author Organization [facility] Address [address] [place] [address]- Care Team Providers Care Lighthouse Keeper Name Role Phone Chata HUGHES, Yaima Reed Primary Care Physician [place] [facility] [place] 12/27/23 - 01/26/24 [facility] [address] [place] [address] Attending Physician: Jason Gonzalez Admitting Physician: Jason Gonzalez Referring Physician: AdmJason thayer Allergies, Adverse Reactions, Alerts Substance Reaction Severity Status terazosin DIZZINESS Active Glutens Active Xolair anaphylaxis Active Immunizations Given and Recorded Vaccine Date Status Refusal Reason SARS-CoV-2(COVID-19)mRNA-LNP vac([id number]) 03/18/23 Recorded [id number] 12y+ bivalent booster vax 03/26/22 Recorded SARS-CoV-2 [...] Refills, Maintenance, 08/25/22 15:57:00 EDT, Solution, [facility]/pharmacy #0859, Partial fill upon [...] 3 Refills, Maintenance, 08/03/23 13:17:00 EST, Tablet, [facility]/pharmacy #0859, Partial fill upon [...] Refills, Maintenance, 11/28/23 8:27:00 EDT, [facility], 178, cm, 11/17/23 10:55:00 EDT, Height, 113, kg, 11/17/23 10:55:00 EDT,Dry Weight Start Date: 11/28/23 Status: Ordered zolpidem 10 mg oral tablet See Instructions, TAKE 1 TABLET BY MOUTH AT BEDTIME NEEDED 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
--- OUTSIDE RECORDS SUMMARY | 2024-03-27 15:12 | XMS_ITS | Continuity of Care Document ---
Author Organization [facility] Address [address] [place] [address]- Care Team Providers Care Director Camp Name Role Phone Yaima Brizuela MD Primary Care Physician [phone] [place] [facility] [place]20 - 02/20/20 [facility] [address] [place] [address]- [facility] Attending Physician: Jason Gonzalez Admitting Physician: AdmtrJason [...] Refills, Maintenance, 10/10/19 11:17:00 EDT, Tablet, [facility]/pharmacy #0859, 113.6, kg, 01/22/19 15:29:00 [...] 11/20/20 15:45:00 EDT, 11/21/19 15:42:00 EDT, [facility] # 302, 113.6, kg, 01/22/19 [...]
--- OUTSIDE RECORDS SUMMARY | 2024-03-27 15:12 | XMS_ITS | Continuity of Care Document ---
Author Organization [facility] Address [address] [place] [address]- Care Team Providers Care Audit Director Name Role Phone Chata HUGHES, Yaima Reed Primary Care Physician En[place] [facility] [place] Date(s): 01/24/23 - 01/31/23 [facility] [address] [place] [address]- Attending Physician: Jay Jay Santiago MD Allergies, Adverse Reactions, Alerts Substance Reaction Severity Status terazosin DIZZINESS Active Glutens Active Xolair anaphylaxis Active Immunizations Given and Recorded Vaccine Date Status Refusal Reason [id number] 12y+ bivalent booster vax 03/26/22 Recorded SARS-CoV-2 [...] 2 Refills, Maintenance, 11/10/22 15:49:00 EDT, Tablet, [facility]/pharmacy #[id number], Partial fill upon patient request if the [...] MOUTH AT BEDTIME NEEDED 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 AURABINDO EXHAUSTER, # 30 tablet, 5 Refills, Maintenance, 08/23/22 15:12:00 EDT, [facility]/pharmacy #[id number], AURABINDO EXHAUSTER ONLY PLEASE, 177.8, cm, 06/17/22 10:52:00 EST,... [...] oldest [Reference Range]: 1 Height 178 cm (01/24/23 3:44 PM) Weight 111.8 kg (8/21/23 3:44 PM) Oxygen Saturation [94-100 %] 100 % (01/24/23 3:44 PM) Pulse Rate [55-90 bpm] 85 bpm (01/24/23 3:44 PM) Body Mass Index [18.5-24.99 kg/m2] 35.29 kg/m2 *>HHI* (01/24/23 3:44 PM) Blood Pressure [90-138/55-84 mm Hg] 106/ 73mm Hg (01/24/23 3:44 PM) Mode of Delivery (Oxygen) Room air (01/24/23 3:44 PM) Blood pressure sites Arm, left (01/24/23 3:44 PM) Social History Social History Type Response Smoking Status Never (less than 100 in lifetime) entered on: 05/14/21 Sex Patient Care team information Care Team Personnel Name: Yaima Brizuela MD Position: [facility] Physician - Primary Care Member Role: PCP Address: Address: [address] [place] [address]- Care Team Related Persons Name: AISHA ESTEVES Address: home [address] [address] Name: CECE ESTEVES Address: [place] [address] Name: CECE NUÑEZ Address: home [address] [place] [address]
--- OUTSIDE RECORDS SUMMARY | 2024-03-27 15:12 | XMS_ITS | Continuity of Care Document ---
Author Organization [facility] Address [address] [place] [address]- Care Team Providers Care Tour Consultant Name Role Phone Yaima Brizuela MD Primary Care Physician [phone] [place] [facility] [place] 02/05/20 - 03/06/20 [facility] [address] [place] [address]- [facility] Allergies, Adverse Reactions, Alerts [...] 3 Refills, Maintenance, 10/10/19 11:17:00 EDT, Tablet, [facility]/pharmacy #0859, 113.6, kg, 01/22/19 15:29:00 [...] Acute 11/20/20 15:45:00 EDT, 11/21/19 15:42:00 EDT, [facility] # 302, 113.6, kg, 01/22/19 15:29:00 [...]
--- OUTSIDE RECORDS SUMMARY | 2024-03-27 15:12 | XMS_ITS | Continuity of Care Document ---
Author Organization [facility] Address [address] [place] [address]- Care Team Providers Care Qa Developer Name Role Phone Yaima Brizuela MD Primary Care Physician [phone] [place] [facility] [place]s): 03/13/21 - 04/12/21 [facility] [address] [place], [place] [address] Allergies, Adverse Reactions, Alerts Substance Reaction [...] 56 tablet, 0 Refills, Acute, 08/20/20 8:36:00EDT, [facility] [address]15, 179, cm, 07/18/20 14:54:00 EST, Height, 113.6, [...] 3 Refills, Maintenance, 12/09/20 11:35:00 EDT, Tablet, [facility]/pharmacy #0859, 179, cm, 11/27/20 14:03:00 EDT, [...] tablet, 5 Refills, Maintenance, 07/24/20 13:33:00 EST, [facility]/pharmacy #0859, 179, cm, 07/18/20 14:54:00 EST, [...] tablet, 5 Refills, Maintenance, 02/17/21 15:40:00 EDT, [facility] # 302, 179, cm, 02/12/21 11:02:00 [...]
--- OUTSIDE RECORDS SUMMARY | 2024-03-27 15:12 | XMS_ITS | Continuity of Care Document ---
Author Organization [facility] Address [address] [place] [address]- Care Team Providers Care Showroom Manager Name Role Phone Chata HUGHES, Yaima Reed Primary Care Physician Encounter [facility] [place] Date(s): 10/03/20 - 11/02/20 [facility] [address] [place], [place] [address] Allergies, Adverse Reactions, Alerts Substance Reaction Severity [...] 0 Refills, Acute, 08/20/20 8:36:00EDT, [facility], 179, cm, 07/18/20 14:54:00 EST, Height, 113.6, [...] 18:24:00 EDT, 10/22/20 18:24:00 EDT, ER Tablet, [facility]/pharmacy #[id number], Partial fill upon patient request if the prescription is for a schedule I... Start Date: 10/22/20 Stop Date: 11/11/20 Status: Ordered ipratropium nasal 21 mcg/inh spray 0 Refills, Maintenance, 06/01/19 12:48:00 EST Start Date: 06/01/19 Status: Ordered ketoconazole 2% topical shampoo 1 application, Topically, Daily, # 120 mL, 0 Refills, Soft Stop, 10/25/19 11:51:00 EDT, Shampoo, [facility]/pharmacy #[id number], 1 application Topically Daily, [...] Stop 03/02/21 12:22:00 EDT, 05/06/20 12:22:00 EST, [facility] # 302, 1 tablet... [...] 3 Refills, Maintenance, 10/10/19 11:17:00 EDT, Tablet, [facility]/pharmacy #[id number], 113.6, kg, 01/22/19 15:29:00 EDT, Dry Weight Start Date: 10/10/19 Status: Ordered rizatriptan 5 mg oral tablet 1 tablet = 5 mg, By Mouth, Daily, PRN for migraine headache, may repeat dose every 2 hours up to a maximum of 3, # 30 tablet, 5 Refills, Maintenance, 10/09/20 16:46:00 EDT, Tablet, [facility]/pharmacy #[id number], Partial fill upon patient [...] Acute 11/20/20 15:45:00 EDT, 11/21/19 15:42:00 EDT, [facility] # 302, 113.6, kg, 01/22/19 15:29:00 EDT, Dry Weight Start Date: 11/21/19 Stop Date: 11/20/20 Status: Ordered zolpidem 10 mg oral tablet See Instructions, TAKE ONE TABLET BY MOUTH AT BEDTIME NEEDED 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, # 30 tablet, 5 Refills, Maintenance, 07/25/20 12:12:00 EST, [facility] # 302, 179, cm, 07/18/20 14:54:00 EST, Height, 113.6, kg, 01/22/19 15:29:00 EDT, Dry Weight Start Date: 07/25/20 Status: Ordered zolpidem 10 mg oral tablet See Instructions, TAKE ONE TABLET BY MOUTH AT BEDTIME NEEDED 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, # 30 tablet, 5 Refills, Maintenance, 07/24/20 13:33:00 EST, [facility]/pharmacy #[id number], 179, cm, 07/18/20 14:54:00 [...]
--- OUTSIDE RECORDS SUMMARY | 2024-03-27 15:12 | XMS_ITS | Continuity of Care Document ---
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/06/21 Attending Physician: Yaima Brizuela MD Allergies, Adverse [...] 3 Refills, Maintenance, 12/09/20 11:35:00 EDT, Tablet, [facility]/pharmacy #[id number], 179, cm, 11/27/20 [...] 30 tablet, 5 Refills,Maintenance, 08/06/21 14:06:00 EST, [facility] # 302, 177.8, cm, 08/06/21 11:00:00 EST, Height, 116.3, kg, 07/13/21 12:56:00 EST, Dry Weight Start Date: 08/06/21 Status: Ordered zolpidem 10 mg oral tablet See Instructions, TAKE ONE TABLET BY MOUTH AT BEDTIME NEEDED 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, # 30 tablet, 5 Refills, Maintenance, 02/17/21 15:40:00 EDT, [facility] # 302, 179, cm, 02/12/21 11:02:00 [...] Clinical Service Informant Amos-Danlos syndrome Discharge Diagnosis 08/06/21 Tommy's thyroiditis Discharge Diagnosis 08/06/21 Mast cell activation Discharge Diagnosis 08/06/21 Vital Signs Most recent to oldest [Reference Range]: 1 Height 177.8 cm (08/06/21 11:00 AM) Weight 116 kg (08/06/21 11:00 AM) Oxygen Saturation [94-100 %] 98 % (08/06/21 11:00 AM) Pulse Rate [55-90 bpm] 80 bpm (08/06/21 11:00 AM) Body Mass Index [18.5-24.99] 36.69 *>HHI* (08/06/21 11:00 AM) Blood Pressure [90-138/55-84 mm Hg] 112/ 68mm Hg (08/06/21 11:00 AM) Respiratory Rate [16-30 br/min] 18 br/mi n (08/06/21 11:00 AM) Temperature [96.8-100.4 DegF] 97.2 DegF (08/06/21 11:00 AM) Mode of Delivery (Oxygen) Room air (08/06/21 11:00 AM) Blood pressure sites Arm, right (08/06/21 11:00 AM) Temperature Route Temporal (08/06/21 11:00 AM) Weight Obtained Via Standing scale (08/06/21 11:00 AM) Social History Social History Type Response Smoking Status Never (less than 100 in lifetime) entered on: 05/14/21 Sex
--- OUTSIDE RECORDS SUMMARY | 2024-03-27 15:12 | XMS_ITS | Continuity of Care Document ---
Author Organization [facility] Address [address] [place] [address]- Care Team Providers Care Appeals Manager Name Role Phone Yaima Brizuela MD Primary Care Physician [place] [facility] [place] 10/28/22 - 11/27/22 [facility] [address] [place], [place] [address] Allergies, Adverse Reactions, Alerts Substance Reaction Severity Status terazosin DIZZINESS Active Glutens Active Xolair anaphylaxis Active Immunizations Given and Recorded Vaccine Date Status Refusal Reason [id number] 12y+ bivalent booster vax 03/26/22 Recorded SARS-CoV-2 [...] Refills, Maintenance, 11/10/22 15:49:00 EDT, Tablet, [id number], Partial fill upon patient request if the [...] Refills, Soft Stop, 10/25/19 11:51:00 EDT, Shampoo, [facility]/pharmacy #[id number], 1 application Topically Daily, 113.6, kg, 01/22/19 15:29:00 EDT, Dry Weight Start Date: 10/25/19 Status: Ordered ketotifen 0.025% ophthalmic solution 1 drops, Eyes, Both, Every 8 hours, # 7.5 mL, 1 Refills, Maintenance, 08/25/22 15:57:00 EDT, Solution, [facility]/pharmacy #[id number], Partial fill upon [...] AT BEDTIME NEEDED 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 AURABINDO ACID ADJUSTER, # 30 tablet, 5 Refills, Maintenance, 08/23/22 15:12:00 EDT, [id number], AURABINDO ACID ADJUSTER ONLY PLEASE, 177.8, cm, 06/17/22 10:52:00 EST,... [...] Team Personnel Name: Yaima Brizuela MD Position: [facility] Physician - Primary Care Member Role: PCP Address: [facility] [place] [address]- Care Team Related Persons Name: AISHA ESTEVES Address: home [address] [address] Name: CECE ESTEVES Address: [place] [address] Name: CECE NUÑEZ Address: home [address] [place] [address]
--- OUTSIDE RECORDS SUMMARY | 2024-03-27 15:12 | XMS_ITS | Continuity of Care Document ---
Author Organization [facility] Address [address] [place] [address]- Care Team Providers Care Repairer Shoe Sticks Name Role Phone Yaima Brizuela MD Primary Care Physician [phone] [place] [facility] [place] 01/24/24 - 02/23/24 [facility] [address] [place], [place] [address] Allergies, Adverse Reactions, Alerts Substance Reaction Severity Status terazosin DIZZINESS Active Glutens Active Xolair anaphylaxis Active Immunizations Given and Recorded Vaccine Date Status Refusal Reason SARS-CoV-2(COVID-19)mRNA-LNP vac([id number]) 03/18/23 Recorded [id number] 12y+ bivalent booster vax 03/26/22 Recorded SARS-CoV-2 [...] 1 Refills, Maintenance, 08/25/22 15:57:00 EDT, Solution, [facility]/pharmacy #[id number], Partial fill upon patient request [...] 3 Refills, Maintenance, 08/03/23 13:17:00 EST, Tablet, [facility]/pharmacy #[id number], Partial fill upon patient request [...] Refills, Maintenance, 11/28/23 8:27:00 EDT, [facility], 178, cm, 11/17/23 10:55:00 EDT, Height, 113, kg, 11/17/23 10:55:00 EDT,Dry Weight Start Date: 11/28/23 Status: Ordered zolpidem 10 mg oral tablet See Instructions, TAKE 1 TABLET BY MOUTH AT BEDTIME NEEDED 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 AURABINDO RADIOLOGY AIDE (Rx order must be sent to pharmacy [...] Primary Care Member Role: PCP Address: Address: [address] [place], [place] [id number]- [place] Care Team Related Persons Name: AISHA ESTEVES Address: home [address] [place] [address] Name: CECE ESTEVES Address: [place] [address] Name: CECE NUÑEZ Address: home [address] [place] [address]
--- OUTSIDE RECORDS SUMMARY | 2024-03-27 15:12 | XMS_ITS | Continuity of Care Document ---
Author Organization [facility] Address [address] [place] [address]- Care Team Providers Care Clipper Automatic Name Role Phone Yaima Brizuela MD Primary Care Physician [place] [facility] [place] 08/13/20 - 09/12/20 [facility] [address] [place], [place] [address] Allergies, Adverse Reactions, Alerts [...] tablet, 0 Refills, Acute, 08/20/20 8:36:00EDT, [facility], 179, cm, 07/18/20 14:54:00 EST, Height, 113.6, [...] Stop 03/02/21 12:22:00 EDT, 05/06/20 12:22:00 EST, [facility] # 302, 1 tablet... Start [...] Acute 11/20/20 15:45:00 EDT, 11/21/19 15:42:00 EDT, [facility] # 302, 113.6, kg, 01/22/19 15:29:00 EDT, Dry Weight Start Date: 11/21/19 Stop Date: 11/20/20 Status: Ordered zolpidem 10 mg oral tablet See Instructions, TAKE ONE TABLET BY MOUTH AT BEDTIME NEEDED 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, # 30 tablet, 5 Refills, Maintenance, 07/25/20 12:12:00 EST, [facility] # 302, 179, cm, 07/18/20 [...]
--- OUTSIDE RECORDS SUMMARY | 2024-03-27 15:12 | XMS_ITS | Continuity of Care Document ---
Author Organization [facility] Address [address] [place] [address]- Care Team Providers Care Recoating Machine Operator Name Role Phone Chata HUGHES, Yaima Reed Primary Care Physician [place] [facility] [place] 11/19/21 - 12/19/21 [facility] [address] [place] [address]- Allergies, Adverse Reactions, Alerts Substance Reaction Severity [...] Soft Stop, 10/25/19 11:51:00 EDT, Shampoo, [facility]/pharmacy #[id number], 1 application Topically Daily, 113.6, [...] MOUTH AT BEDTIME NEEDED 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 AURABINDO DISTRICT EXTENSION SERVICE AGENT, # 30 tablet, 5 Refills, Maintenance, 11/25/21 16:15:00 EDT, [id number], AURABINDO DISTRICT EXTENSION SERVICE AGENT ONLY PLEASE, 177.8, cm, 11/20/21 14:05... Start [...]
--- OUTSIDE RECORDS SUMMARY | 2024-03-27 15:12 | XMS_ITS | Continuity of Care Document ---
Author Organization [facility] Address [address] [place] [address]- Care Team Providers Care Rubber Cutter Name Role Phone Chata HUGHES, Yaima Reed Primary Care Physician [phone] Encounter [facility] Date(s): 01/04/24 - 02/03/[address] [facility] [place] [facility] [address] [place] [address]- Allergies, Adverse Reactions, Alerts Substance Reaction Severity Status terazosin DIZZINESS Active Glutens Active Xolair anaphylaxis Active Immunizations Given and Recorded Vaccine Date Status Refusal Reason SARS-CoV-2(COVID-19)mRNA-LNP vac([id number]) 03/18/23 Recorded [id number] 12y+ bivalent booster vax 03/26/22 Recorded SARS-CoV-2 [...] 1 Refills, Maintenance, 08/25/22 15:57:00 EDT, Solution, [facility]/pharmacy #[id number], Partial fill upon patient request if [...] 3 Refills, Maintenance, 08/03/23 13:17:00 EST, Tablet, [facility]/pharmacy #[id number], Partial fill upon patient request if [...] Refills, Maintenance, 11/28/23 8:27:00 EDT, [facility], 178, cm, 11/17/23 10:55:00 EDT, Height, 113, kg, 11/17/23 10:55:00 EDT,Dry Weight Start Date: 11/28/23 Status: Ordered zolpidem 10 mg oral tablet See Instructions, TAKE 1 TABLET BY MOUTH AT BEDTIME NEEDED 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 AURABINDO FOXER, # 30 tablet, 5 Refills, Maintenance, 08/25/23 12:51:00 EDT, [id number], AURABINDO FOXER ONLY PLEASE, 178, cm, 08/11/23 10:59:00 EST, [...] Care Member Role: PCP Address: Address: [address] [place] [address]- Care Team Related Persons Name: AISHA ESTEVES Address: home [address] [facility] [address] [place] [address] Name: CECE ESTEVES Address: [place] [address] Name: CECE NUÑEZ Address: home [address] [place] [address]
--- OUTSIDE RECORDS SUMMARY | 2024-03-27 15:12 | XMS_ITS | Continuity of Care Document ---
Author Organization [facility] Address [address] [place] [address]- Care Team Providers Care Health Insurance Sales Agent Name Role Phone Yaima Brizuela MD Primary Care Physician En[place] [facility] [place] Date(s): 02/11/23 - 03/13/23 [facility] [address] [place], [place] [address] Allergies, Adverse Reactions, Alerts Substance Reaction Severity Status terazosin DIZZINESS Active Glutens Active Xolair anaphylaxis Active Immunizations Given and Recorded Vaccine Date Status Refusal Reason [id number] 12y+ bivalent booster vax 03/26/22 Recorded SARS-CoV-2 [...] Maintenance, 11/10/22 15:49:00 EDT, Tablet, [facility]/pharmacy #[id number], Partial fill upon patient request if the [...] Maintenance, 08/25/22 15:57:00 EDT, Solution, [facility]/pharmacy #[id number], Partial fill upon patient request if [...] MOUTH AT BEDTIME NEEDED 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 AURABINDO GLAZE SPRAYER, # 30 tablet, 5 Refills, Maintenance, 02/22/23 13:51:00 EDT, [id number], AURABINDO GLAZE SPRAYER ONLY PLEASE, 178, cm, 01/24/23 15:44:00 EDT, [...] Team Personnel Name: Yaima Brizuela MD Position: [facility] Physician - Primary Care Member Role: PCP Address: Address: [address] [place] [address]- Care Team Related Persons Name: AISHA ESTEVES Address: home [address] [facility] [address] [place] [address] Name: CECE ESTEVES Address: [place] [address] Name: CECE NUÑEZ Address: home [address] [place] [address]
--- OUTSIDE RECORDS SUMMARY | 2024-03-27 15:12 | XMS_ITS | Continuity of Care Document ---
Author Organization [facility] Address [address] [place] [address]- Care Team Providers Care Bearingizer Name Role Phone Yaima Brizuela MD Primary Care Physician Encounter [facility] [place] Date(s): 01/07/20 - 02/06/20 [facility] [address] [place] [address]- [facility] Allergies, Adverse Reactions, Alerts Substance Reaction Severity [...] 15:45:00 EDT, 11/21/19 15:42:00 EDT, [facility] # 302, 113.6, kg, 01/22/19 15:29:00 [...]
--- OUTSIDE RECORDS SUMMARY | 2024-03-27 15:12 | XMS_ITS | Continuity of Care Document ---
Author Organization [facility] Address [address] [place] [address]- Care Team Providers Care Diamond Grader Name Role Phone Yaima Brizuela MD Primary Care Physician En[place] [facility] [place] Date(s): 05/09/23 - 06/08/23 [facility] [address] [place] [address]- Attending Physician: Jason Gonzalez Admitting Physician: Jason Gonzalez Referring Physician: AdmtrJason Allergies, Adverse Reactions, Alerts Substance Reaction Severity Status terazosin DIZZINESS Active Glutens Active Xolair anaphylaxis Active Immunizations Given and Recorded Vaccine Date Status Refusal Reason SARS-CoV-2(COVID-19)mRNA-LNP vac([id number]) 03/18/23 Recorded [id number] 12y+ bivalent booster vax 03/26/22 Recorded SARS-CoV-2 [...] Refills, Maintenance, 03/14/23 6:44:00 EDT, [facility], 178, cm, 01/24/23 15:44:00 EDT, Height, 109.5, [...] 1 Refills, Maintenance, 08/25/22 15:57:00 EDT, Solution, [facility]/pharmacy #[id number], Partial fill upon patient request [...] Gm, 5 Refills, Maintenance, 02/07/23 16:36:00 EDT, [facility]/pharmacy#0859, Partial fill upon patient request if the prescription is for a schedule II opioid drug., 178, cm, 01/24/23 15:44:00 EDT, Height, 109.5, kg, 06/0... Start Date: 02/07/23 Status: Ordered zolpidem 10 mg oral tablet See Instructions, TAKE 1 TABLET BY MOUTH AT BEDTIME NEEDED 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 AURABINDO PROSPECT MANAGER, # 30 tablet, 5 Refills, Maintenance, 02/22/23 13:51:00 EDT, [id number], AURABINDO PROSPECT MANAGER ONLY PLEASE, 178, cm, 01/24/23 15:44:00 EDT, [...] Team Personnel Name: Yaima Brizuela MD Position: [facility] Physician - Primary Care Member Role: PCP Address: Address: [address] [place] [address]- Care Team Related Persons Name: AISAH ESTEVES Address: home [address] [address] Name: CECE ESTEVES Address: [place] [address] Name: CECE NÑUEZ Address: home [address] [place] [address]
--- OUTSIDE RECORDS SUMMARY | 2024-03-27 15:12 | XMS_ITS | Continuity of Care Document ---
Author Organization [facility] Address [address] [place] [address]- Care Team Providers Care Otr Owner Operator Name Role Phone Chata HUGHES, Yaima Reed Primary Care Physician En[place] [facility] [place] Date(s): 09/19/20 - 10/19/20 [facility] [address] [place], [place] [address] Allergies, Adverse Reactions, Alerts [...] Acute, 08/20/20 8:36:00EDT, [facility] 56157, 179, cm, 07/18/20 14:54:00 EST, Height, 113.6, [...] [facility] # [...] Acute 11/20/20 15:45:00 EDT, 11/21/19 15:42:00 EDT, [facility] # 302, 113.6, kg, 01/22/19 15:29:00 EDT, Dry Weight Start Date: 11/21/19 Stop Date: 11/20/20 Status: Ordered zolpidem 10 mg oral tablet See Instructions, TAKE ONE TABLET BY MOUTH AT BEDTIME NEEDED 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, # 30 tablet, 5 Refills, Maintenance, 07/25/20 12:12:00 EST, [facility] # [facility], 179, cm, 07/18/20 14:54:00 [...]
--- OUTSIDE RECORDS SUMMARY | 2024-03-27 15:13 | XMS_ITS | Continuity of Care Document ---
Author Organization [facility] Address [address] [place] [address]- Care Team Providers Care Personal Lines Advisor Name Role Phone Chata HUGHES, Yaima Reed Primary Care Physician En[place] [facility] [place] Date(s): 12/06/19 - 01/05/20 [facility] [address] [place] [address]- [facility] Allergies, Adverse Reactions, Alerts Substance Reaction [...] 3 Refills, Maintenance, 10/10/19 11:17:00 EDT, Tablet, [facility]/pharmacy #[id number], 113.6, kg, 01/22/19 [...]
--- OUTSIDE RECORDS SUMMARY | 2024-03-27 15:13 | XMS_ITS | Continuity of Care Document ---
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 Migraines(Discharge Diagnosis) - 11/18/23 Attending Physician: Yaima Brizuela MD Allergies, Adverse Reactions, Alerts Substance Reaction Severity Status terazosin DIZZINESS Active Glutens Active Xolair anaphylaxis Active Immunizations Given and Recorded Vaccine Date Status Refusal Reason SARS-CoV-2(COVID-19)mRNA-LNP vac([id number]) 03/18/23 Recorded [id number] 12y+ bivalent booster vax 03/26/22 Recorded SARS-CoV-2 (COVID-19) mRNA BNT-162b2 vac 1 06/25/21 Recorded SARS-CoV-2 (COVID-19) mRNA BNT-162b2 vac 01/03/21 Recorded SARS-CoV-2 (COVID-19) mRNA BNT-162b2 vac 12/13/20 Recorded 1Result Comment: 3rd dose Medications candesartan 4 mg oral tablet 1/2 TO 1 TABLET, By Mouth, Daily, # 90 tablet, 1 Refills, Maintenance, 03/14/23 6:44:00 EDT, [facility], 178, cm, 01/24/23 15:44:00 EDT, Height, 109.5, [...] Gm, 5 Refills, Maintenance, 02/07/23 16:36:00 EDT, [facility]/pharmacy#[id number], Partial fill upon patient request if the prescription is for a schedule II opioid drug., 178, cm, 01/24/23 15:44:00 EDT, Height, 109.5, kg, 06/0... Start Date: 02/07/23 Status: Ordered zolpidem 10 mg oral tablet See Instructions, TAKE 1 TABLET BY MOUTH AT BEDTIME NEEDED 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 AURABINDO DIRECTOR OF CAREER RESOURCES, # 30 tablet, 5 Refills, Maintenance, 08/25/23 12:51:00 EDT, [id number], AURABINDO DIRECTOR OF CAREER RESOURCES ONLY PLEASE, 178, cm, 08/11/23 10:59:00 EST, [...] Dates Health Status Cl inical Service Informant Amos-Danlos syndrome Discharge Diagnosis 11/18/23 Migraines Discharge Diagnosis 11/18/23 Vital Signs Most recent to oldest [Reference Range]: 1 Height 178 cm (11/17/23 10:55 AM) Weight 113 kg (11/17/23 10:55 AM) Oxygen Saturation [94-100 %] 98 % (11/17/23 10:55 AM) Pulse Rate [55-90 bpm] 97 bpm *H* (11/17/23 10:55 AM) Body Mass Index [18.5-24.99 kg/m2] 35.66 kg/m2 *>HHI* (11/17/23 10:55 AM) Blood Pressure [90-138/55-84 mm Hg] 108/ 72mm Hg (11/17/23 10:55 AM) Temperature [96.8-100.4 DegF] 99.2 DegF (11/17/23 10:55 AM) Mode of Delivery (Oxygen) Room air (11/17/23 10:55 AM) Blood pressure sites Arm, left (11/17/23 10:55 AM) Temperature Route Temporal (11/17/23 10:55 AM) Dry Weight 113 kg (11/17/23 10:55 AM) Weight Obtained Via Standing scale (11/17/23 10:55 AM) Dry Weight Obtained Via Standing scale (11/17/23 10:55 AM) Social History Social History Type Response Smoking Status Never (less than 100 in lifetime) entered on: 05/14/21 Sex Note * Arianna Diggs: PERFORM Event Display: Patient Education/Instruction Authored Date: Ambulatory Adult Visit Summary [facility] [address] [place] [address] Name: NITA ESTEVES : 1985?? Visit: 11/17/2023 10:53?? Ambulatory Visit Instructions ?? Your Care Team Primary Care Provider Yaima Brizuela MD? 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 What to do next Scheduled Follow-Up Appointments Tuesday 9:00 AM EDT ?? With: Ilana Miranda MD Where: [facility] [address] [facility] 3rd Floor, [address] [place] [address]- Status: Pending Tuesday 9:15 AM EDT ?? With: Brianna De Los Santos Where: [address] [address]- Status: Pending Tuesday 1:40 PM EDT ?? With: Pamela HUGHES, Jay Jay Carrington Where: [facility] [address] [place] [address]- Status: Pending Future Orders Thyroglobulin Ab, Once, *Est. 11/17/23, Order for Today Thyroid Antimicrosomal Ab, Once, *Est. 11/17/23, Order for Today Comprehensive Metabolic Panel - Once, *Est. 08/11/23, Order for Today?? TSH - Once, *Est. 08/11/23, Order for Today?? Free T4 - Once, *Est. 08/11/23, Order for Today?? [...] 11:35:00 EDT, Order for Today, [facility], Blood?? TSH - Routine, Once, 11/17/23 11:35:00 EDT, Order for Today, [facility], Blood?? Free T4 - Routine, Once, 11/17/23 11:35:00 EDT, Order for Today, [facility], Blood?? T3 Total - Routine, Once, 11/17/23 11:35:00 EDT, Order for Today, [facility], Blood?? T3 Free (Free T3) - Routine, Once, 11/17/23 11:36:00 EDT, Order for Today, [facility], Blood?? Ferritin - Routine, Once, 11/17/23 11:36:00 EDT, Order for Today, [facility], Blood?? Iron + Iron Binding Capacity - Routine, Once, 11/17/23 11:36:00 EDT, Order for Today, [facility], Blood?? Folate Level - Routine, Once, 11/17/23 11:36:00 EDT, Order for Today, [facility], Blood?? Comprehensive Metabolic Panel - Routine, Once, 11/17/23 11:40:00 EDT, Order for Today, [facility], Blood?? Hemoglobin A1C (Monitoring) - Routine, Once, 11/17/23 11:44:00 EDT, Order for Today, [facility], Blood?? Medications [...] the prescribing provider. What How Much When Why Instructions Unchanged Ascorbic Acid (Vitamin C 1000 [...] nasal (Zetonna 37 mcg/ inh nasal aerosol) 1 spray(s) Nares, Both Daily Allergic rhinitis Unchanged Cranberry Unchanged Cyanocobalamin (Vitamin B12) 5,000 [...] oral tablet, extended release) Oral Daily Unchanged Lakin-3 Polyunsaturated Fatty Acids (Fish Oil) Oral Unchanged Ondansetron (ondansetron 4 mg oral tablet, disintegrating) DISSOLVE 1 TABLET IN MOUTH EVERY 8 HOURS NEEDED FOR NAUSEA AND VOMITING (INS ONLY COVERS 1 DAILY) ?? Unchanged Phytonadione (Vitamin K1) 100mcg daily ?? Unchanged Zolpidem (zolpidem 10 mg oral tablet) See instructions TAKE 1 TABLET BY MOUTH AT BEDTIME NEEDED 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 AURABINDO DIRECTOR OF CAREER RESOURCES ?? Test Performed Below is a partial list of the tests performed during your Visit. You may have had other tests and procedures not included in this list. Please discuss all test results with your provider. Comprehensive Metabolic Panel?-- Results Pending -- Ferritin?-- Results Pending -- Folate Level?-- Results Pending -- Free T3?-- Results Pending -- Free T4?-- Results Pending -- Hemoglobin A1C (Monitoring)?-- Results Pending -- Iron + Iron Binding Capacity?-- Results Pending -- T3 Total?-- Results Pending -- TSH?-- Results Pending -- You will be contacted within 72 hours with your results. Medications and Immunizations Administered Medications Given During [...] are strongly encouraged to quit. Please call [facility] blabfeed Link at [phone] or [phone] ([phone]) or log in to [email or web address] for referrals to smoking cessation programs. ?? The National Suicide Prevention Hotline is available 27/12 if you or someone you know needs to find a reason to keep living. By calling 7-521-362-Viewex (3908) you'll be connected to a skilled, trained counselor at a crisis center in your area. [facility] blabfeed Portal You can view and manage your care through the patient portal or by using a health care marge of your choosing. [employer] is a website that allows you to securely view your medical information including your hospital discharge summary, office visit summaries, medications and follow-up visits. You can also request appointments, renew medications, and request access to your medical information using a health care marge of your choosing, or just ask a question. You can enroll at [email or web address] or register during your next office visit. [facility], in keeping with [facility] guidance, no longer requires face masks for [...] primary care provider, you may find a [facility] provider by calling [facility] Link at [phone]. Patient Care team information Care Team Personnel Name: Yaima Brizuela MD Position: [facility] Physician - Primary Care Member Role: PCP Address: Address: [address] [place] [address]- Care Team Related Persons Name: AISHA ESTEVES Address: home [address] [address] Name: CECE ESTEVES Address: [place] [address] Name: CECE NUÑEZ Address: home [address] [place] [address]
--- OUTSIDE RECORDS SUMMARY | 2024-03-27 15:13 | XMS_ITS | Continuity of Care Document ---
Author Organization [facility] Address [address] [place] [address]- Care Team Providers Care Chief Design Branch Name Role Phone Chata HUGHES, Yaima Reed Primary Care Physician [phone] Encounter [facility] Date(s): 12/09/20 - 01/08/21 [facility] [address] [place], [place] [address] Allergies, Adverse Reactions, Alerts Substance [...] tablet, 0 Refills, Acute, 08/20/20 8:36:00EDT, [facility] STORE 64347, 179, cm, 07/18/20 14:54:00 EST, Height, 113.6, [...] Physician Stop 03/02/21 12:22:00 EDT, 05/06/20 12:22:00 [facility], [facility] # 302, 1 tablet... [...] 5 Refills, Maintenance, 10/09/20 16:46:00 EDT, Tablet, [facility]/pharmacy #[id number], Partial [...] tablet, 5 Refills, Maintenance, 07/25/20 12:12:00 EST, [facility] # 302, 179, cm, 07/18/20 14:54:00 [...]
--- OUTSIDE RECORDS SUMMARY | 2024-03-27 15:13 | XMS_ITS | Continuity of Care Document ---
Author Organization [facility] Address [address] [place] [address]- Care Team Providers Care Spray Drier Operator Name Role Phone Yaima Brizuela MD Primary Care Physician Encounter [facility] Date(s): 12/25/20 - 01/24/21 [facility] [address] [place], [place] [address] Allergies, Adverse Reactions, Alerts Substance Reaction [...] 56 tablet, 0 Refills, Acute, 08/20/20 8:36:00EDT, [facility]86, 179, cm, 07/18/20 14:54:00 EST, Height, 113.6, [...] Refills, Soft Stop, 10/25/19 11:51:00 EDT, Shampoo, [facility]/pharmacy #[id number], 1 application Topically Daily, 113.6, [...] Physician Stop 03/02/21 12:22:00 EDT, 05/06/20 12:22:00 [facility], [facility] # 302, 1 tablet... [...] 3 Refills, Maintenance, 12/09/20 11:35:00 EDT, Tablet, [facility]/pharmacy #[id number], 179, cm, 11/27/20 14:03:00 EDT, Height, 121.1, kg, 10/22/20 14:46:00 EDT, Dry Weight Start Date: 12/09/20 Status: Ordered rizatriptan 5 mg oral tablet 1 tablet = 5 mg, By Mouth, Daily, PRN for migraine headache, may repeat dose every 2 hours up to a maximum of 3, # 30 tablet, 5 Refills, Maintenance, 10/09/20 16:46:00 EDT, Tablet, [facility]/pharmacy #[id number], Partial fill upon patient request [...] tablet, 5 Refills, Maintenance, 07/25/20 12:12:00 EST, [facility] # 302, 179, cm, [...]
--- OUTSIDE RECORDS SUMMARY | 2024-03-27 15:13 | XMS_ITS | Continuity of Care Document ---
Author Organization [facility] Address [address] [place] [address]- Care Team Providers Care Easement Worker Name Role Phone Yaima Brizuela MD Primary Care Physician [phone] Encounter [facility] Date(s): 05/05/21 - 06/04/21 [facility] [address] [place], [place] [address] Allergies, Adverse [...] 12:48:00 EST Start Date: 06/01/19 Status: Ordered Novemberl 06/25 By Mouth, Daily, 0 Refills, Maintenance, 04/21/21 11:00:00 EST, Partial fill upon patient request if the prescription is for a schedule II opioid drug. Start Date: 04/21/21 Status: Ordered Novemberl 06/25 oral tablet 0 Refills, Maintenance, 05/14/21 11:12:00 EST, Partial fill upon patient request if the prescription is for a schedule II opioid drug. Start Date: 05/14/21 Status: Ordered ketoconazole 2% topical shampoo 1 application, Topically, Daily, # 120 mL, 0 Refills, Soft Stop, 10/25/19 11:51:00 EDT, Shampoo, [facility]/pharmacy #[id number], 1 application Topically Daily, 113.6, [...] 3 Refills, Maintenance, 12/09/20 11:35:00 EDT, Tablet, [facility]/pharmacy #[id number], 179, cm, 11/27/20 14:03:00 EDT, [...] tablet, 5 Refills, Maintenance, 02/17/21 15:40:00 EDT, [facility] # 302, 179, cm, 02/12/21 11:02:00 [...]
--- OUTSIDE RECORDS SUMMARY | 2024-03-27 15:13 | XMS_ITS | Continuity of Care Document ---
Author Organization [facility] Address [address] [place] [address]- Care Team Providers Care Eyedotter Name Role Phone Yaima Brizuela MD Primary Care Physician Encounter [facility] R [id number] Date(s): 12/22/20 - 01/22/21 [facility] [address] [place], [place] [address] Attending Physician: Ellie Sainz MD Referring Physician: Yaima Brizuela MD Allergies, [...] 56 tablet, 0 Refills, Acute, 08/20/20 8:36:00EDT, [facility] STORE 48102, 179, cm, 07/18/20 14:54:00 EST, Height, 113.6, [...] EDT, 05/06/20 12:22:00 [facility], [facility] # [...] Maintenance, 12/09/20 11:35:00 EDT, Tablet, [facility]/pharmacy #[id number], 179, cm, 11/27/20 14:03:00 [...] tablet, 5 Refills, Maintenance, 07/25/20 12:12:00 EST, [facility] # 302, 179, cm, 07/18/20 14:54:00 [...]
--- OUTSIDE RECORDS SUMMARY | 2024-03-27 15:13 | XMS_ITS | Continuity of Care Document ---
Author Organization [facility] Address [address] [place] [address]- Care Team Providers Care Material Handling Crew Supervisor Name Role Phone Chata HUGHES, Yaima Reed Primary Care Physician [place] [facility] [place](s[place] 03/02/23 - 04/01/23 [facility] [address] [place] [address]- Allergies, Adverse Reactions, Alerts Substance Reaction Severity Status terazosin DIZZINESS Active Glutens Active Xolair anaphylaxis Active Immunizations Given and Recorded Vaccine Date Status Refusal Reason [id number] 12y+ bivalent booster vax 03/26/22 Recorded SARS-CoV-2 [...] Refills, Maintenance, 03/14/23 6:44:00 EDT, [facility], 178, cm, 01/24/23 15:44:00 EDT, Height, 109.5, [...] Soft Stop, 10/25/19 11:51:00 EDT, Shampoo, [facility]/pharmacy #[id number], 1 application Topically Daily, 113.6, kg, 01/22/19 15:29:00 EDT, Dry Weight Start Date: 10/25/19 Status: Ordered ketotifen 0.025% ophthalmic solution 1 drops, Eyes, Both, Every 8 hours, # 7.5 mL, 1 Refills, Maintenance, 08/25/22 15:57:00 EDT, Solution, [facility]/pharmacy #[id number], Partial fill [...] MOUTH AT BEDTIME NEEDED 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 AURABINDO COUNTER HOP, # 30 tablet, 5 Refills, Maintenance, 02/22/23 13:51:00 EDT, [id number], AURABINDO COUNTER HOP ONLY PLEASE, 178, cm, 01/24/23 15:44:00 EDT, [...] Team Personnel Name: Yaima Brizuela MD Position: [facility] Physician - Primary Care Member Role: PCP Address: Address: [address] [place] [address]- Care Team Related Persons Name: AISHA ESTEVES Address: home [address] [place] [address] Name: CECE ESTEVES Address: [place] [address] Name: CECE NUÑEZ Address: home [address] [place] [address]
--- OUTSIDE RECORDS SUMMARY | 2024-03-27 15:13 | XMS_ITS | Continuity of Care Document ---
Author Organization [facility] Address [address] [place] [address]- Care Team Providers Care Residential Treatment Staff Name Role Phone Chata HUGHES, Yaima Reed Primary Care Physician [phone] [place] [facility] Date(s): 03/17/23 - 04/16/23 [facility] [address] [place] [address]- Allergies, Adverse Reactions, Alerts Substance Reaction Severity Status terazosin DIZZINESS Active Glutens Active Xolair anaphylaxis Active Immunizations Given and Recorded Vaccine Date Status Refusal Reason [id number] 12y+ bivalent booster vax 03/26/22 Recorded SARS-CoV-2 [...] Refills, Maintenance, 03/14/23 6:44:00 EDT, [facility], 178, cm, 01/24/23 15:44:00 EDT, Height, 109.5, [...] Stop, 10/25/19 11:51:00 EDT, Shampoo, [facility]/pharmacy #0859, 1 application Topically Daily, 113.6, kg, 01/22/19 15:29:00 EDT, Dry Weight Start Date: 10/25/19 Status: Ordered ketotifen 0.025% ophthalmic solution 1 drops, Eyes, Both, Every 8 hours, # 7.5 mL, 1 Refills, Maintenance, 08/25/22 15:57:00 EDT, Solution, [facility]/pharmacy #0859, Partial fill upon patient request [...] MOUTH AT BEDTIME NEEDED 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 Physician - Primary Care Member Role: PCP Address: Address: [address] [place] [address]- Care Team Related Persons Name: AISHA ESTEVES Address: home [address] [place] [address] Name: CECE ESTEVES Address: [place] [address] Name: CECE NUÑEZ Address: home [address] [place] [address]
--- OUTSIDE RECORDS SUMMARY | 2024-03-27 15:13 | XMS_ITS | Continuity of Care Document ---
Author Organization [facility] Address [address] [place] [address]- Care Team Providers Care Mixing Machine Attendant Name Role Phone Yaima Brizuela MD Primary Care Physician Encounter [facility] Date(s): 12/02/23 - 01/01/24 [facility] [address] [place], [place] [address] Allergies, Adverse Reactions, Alerts Substance Reaction Severity Status terazosin DIZZINESS Active Glutens Active Xolair anaphylaxis Active Immunizations Given and Recorded Vaccine Date Status Refusal Reason SARS-CoV-2(COVID-19)mRNA-LNP vac([id number]) 03/18/23 Recorded [id number] 12y+ bivalent booster vax 03/26/22 Recorded SARS-CoV-2 (COVID-19) mRNA BNT-162b2 vac 1 06/25/21 Recorded SARS-CoV-2 (COVID-19) mRNA BNT-162b2 vac 01/03/21 Recorded SARS-CoV-2 (COVID-19) mRNA BNT-162b2 vac 12/13/20 Recorded 1Result Comment: 3rd dose Medications candesartan 4 mg oral tablet 1/2 TO 1 TABLET, By Mouth, Daily, # 90 tablet, 1 Refills, Maintenance, 03/14/23 6:44:00 EDT, [facility], 178, cm, 01/24/23 15:44:00 EDT, Height, 109.5, [...] 1 Refills, Maintenance, 08/25/22 15:57:00 EDT, Solution, [facility]/pharmacy #[id number], Partial fill upon patient request if [...] 3 Refills, Maintenance, 08/03/23 13:17:00 EST, Tablet, [facility]/pharmacy #0859, Partial fill upon patient request if [...] Refills, Maintenance, 11/28/23 8:27:00 EDT, [facility], 178, cm, 11/17/23 10:55:00 EDT, Height, 113, kg, 11/17/23 10:55:00 EDT,Dry Weight Start Date: 11/28/23 Status: Ordered zolpidem 10 mg oral tablet See Instructions, TAKE 1 TABLET BY MOUTH AT BEDTIME NEEDED 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 AURABINDO A AND P MECHANIC, # 30 tablet, 5 Refills, Maintenance, 08/25/23 12:51:00 EDT, [id number], AURABINDO A AND P MECHANIC ONLY PLEASE, 178, cm, 08/11/23 10:59:00 EST, [...] Care Member Role: PCP Address: Address: [address] [place] [address]- Care Team Related Persons Name: AISHA ESTEVES Address: home [address] [place] [address] Name: CECE ESTEVES Address: [place] [address] Name: CECE NUÑEZ Address: home [address] [place] [address]
--- OUTSIDE RECORDS SUMMARY | 2024-03-27 15:13 | XMS_ITS | Continuity of Care Document ---
Author Organization [facility] Address [address] [place] [address]- Care Team Providers Care Pharmacy Picking Tech Name Role Phone Yaima Brizuela MD Primary Care Physician En[place] [facility] [place] [place] Date(s): 05/07/21 - 06/06/21 [facility] [address] [place], [place] [address] Allergies, Adverse Reactions, Alerts [...] tablet, 5 Refills, Maintenance, 02/17/21 15:40:00 EDT, [facility] # 302, 179, cm, 02/12/21 11:02:00 [...]
--- OUTSIDE RECORDS SUMMARY | 2024-03-27 15:13 | XMS_ITS | Continuity of Care Document ---
Author Organization [facility] Address [address] [place] [address]- Care Team Providers Care Agricultural Services Director Name Role Phone Yaima Brizuela MD Primary Care Physician Encounter [facility] ACCT R [id number] Date(s): 05/25/21 - 08/13/21 [facility] [address] [place] [address] Attending Physician: Jay Jay Santiago MD Admitting Physician: Jay Jay Santiago MD Referring Physician: Yaima Brizuela MD Allergies, [...] 3 Refills, Maintenance, 12/09/20 11:35:00 EDT, Tablet, [facility]/pharmacy #[id number], 179, cm, 11/27/20 [...] 30 tablet, 5 Refills,Maintenance, 08/06/21 14:06:00 EST, [facility] # 302, 177.8, cm, 08/06/21 11:00:00 EST, Height, 116.3, kg, 07/13/21 12:56:00 EST, Dry Weight Start Date: 08/06/21 Status: Ordered zolpidem 10 mg oral tablet See Instructions, TAKE ONE TABLET BY MOUTH AT BEDTIME NEEDED 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, # 30 tablet, 5 Refills, Maintenance, 02/17/21 15:40:00 EDT, [facility] # 302, 179, cm, 02/12/21 11:02:00 [...]
--- OUTSIDE RECORDS SUMMARY | 2024-03-27 15:13 | XMS_ITS | Continuity of Care Document ---
Author Organization [facility] Address [address] [place] [address]- Care Team Providers Care Briquette Molder Name Role Phone Yaima Brizuela MD Primary Care Physician [place] [facility] [place] [id number] Date(s): 01/20/24 - 02/19/[address] [address]- Attending Physician: Jason Gonzalez Admitting Physician: Jason Gonzalez Referring Physician: AdmJason thayer Allergies, Adverse Reactions, Alerts Substance Reaction Severity Status terazosin DIZZINESS Active Glutens Active Xolair anaphylaxis Active Immunizations Given and Recorded Vaccine Date Status Refusal Reason SARS-CoV-2(COVID-19)mRNA-LNP vac([id number]) 03/18/23 Recorded [id number] 12y+ bivalent booster vax 03/26/22 Recorded SARS-CoV-2 [...] Refills, Maintenance, 08/25/22 15:57:00 EDT, Solution, [facility]/pharmacy #[id number], Partial fill upon patient request if [...] 3 Refills, Maintenance, 08/03/23 13:17:00 EST, Tablet, [facility]/pharmacy #[id number], Partial fill upon patient request if [...] Refills, Maintenance, 11/28/23 8:27:00 EDT, [facility], 178, cm, 11/17/23 10:55:00 EDT, Height, 113, kg, 11/17/23 10:55:00 EDT,Dry Weight Start Date: 11/28/23 Status: Ordered zolpidem 10 mg oral tablet See Instructions, TAKE 1 TABLET BY MOUTH AT BEDTIME NEEDED 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 AURABINDO RESPITE PROVIDER (Rx order must be sent to pharmacy [...] Team Personnel Name: Yaima Brizuela MD [facility] Physician - Primary Care Member Role: PCP Address: Address: [address] [place] [address]- Care Team Related Persons Name: AISHA ESTEVES Address: home [address] [place] [address] Name: CECE ESTEVES Address: [place] [address] Name: CECE NUÑEZ Address: home [address] [place] [address]
--- OUTSIDE RECORDS SUMMARY | 2024-03-27 15:13 | XMS_ITS | Continuity of Care Document ---
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 Start [...] Team Personnel Name: Yaima Brizuela MD Address: [address] [place] [address]
--- OUTSIDE RECORDS SUMMARY | 2024-03-27 15:13 | XMS_ITS | Continuity of Care Document ---
Author Organization [facility] Address [address] [place] [address]- Care Team Providers Care Collaborative Physician Name Role Phone Yaima Brizuela MD Primary Care Physician [place] [facility] [place](s): 03/20/21 - 04/19/21 [facility] [address] [place], [place] [address] Allergies, Adverse Reactions, Alerts Substance [...] 56 tablet, 0 Refills, Acute, 08/20/20 8:36:00EDT, [facility] STORE 34936, 179, cm, 07/18/20 14:54:00 EST, Height, 113.6, [...] Refills, Soft Stop, 10/25/19 11:51:00 EDT, Shampoo, [facility]/pharmacy #[id number], 1 application Topically Daily, [...] 3 Refills, Maintenance, 12/09/20 11:35:00 EDT, Tablet, [facility]/pharmacy #0859, 179, cm, 11/27/20 14:03:00 [...] tablet, 5 Refills, Maintenance, 07/24/20 13:33:00 EST, [facility]/pharmacy #[id number], 179, cm, 07/18/20 14:54:00 EST, [...] tablet, 5 Refills, Maintenance, 02/17/21 15:40:00 EDT, [facility] # [facility], 179, cm, 02/12/21 11:02:00 [...]
--- OUTSIDE RECORDS SUMMARY | 2024-03-27 15:13 | XMS_ITS | Continuity of Care Document ---
Author Organization [facility] Address [address] [place] [address]- Care Team Providers Care Farm Products Shipper Name Role Phone Chata HUGHES, Yaima Reed Primary Care Physician [phone] [facility] [place] Date(s): 10/03/20 - 11/02/20 [facility] [address] [place], [place] [address] Allergies, Adverse Reactions, Alerts [...] 0 Refills, Acute, 08/20/20 8:36:00EDT, [facility], 179, cm, 07/18/20 14:54:00 EST, Height, 113.6, [...] 18:24:00 EDT, 10/22/20 18:24:00 EDT, ER Tablet, [facility]/pharmacy #0859, Partial fill upon patient request if the prescription is for a schedule I... Start Date: 10/22/20 Stop Date: 11/11/20 Status: Ordered ipratropium nasal 21 mcg/inh spray 0 Refills, Maintenance, 06/01/19 12:48:00 EST Start Date: 06/01/19 Status: Ordered ketoconazole 2% topical shampoo 1 application, Topically, Daily, # 120 mL, 0 Refills, Soft Stop, 10/25/19 11:51:00 EDT, Shampoo, [facility]/pharmacy #0859, 1 application Topically [...] Stop 03/02/21 12:22:00 EDT, 05/06/20 12:22:00 EST, [facility] # 302, 1 tablet... Start Date: [...] 3 Refills, Maintenance, 10/10/19 11:17:00 EDT, Tablet, [facility]/pharmacy #0859, 113.6, kg, 01/22/19 15:29:00 EDT, Dry Weight Start Date: 10/10/19 Status: Ordered rizatriptan 5 mg oral tablet 1 tablet = 5 mg, By Mouth, Daily, PRN for migraine headache, may repeat dose every 2 hours up to a maximum of 3, # 30 tablet, 5 Refills, Maintenance, 10/09/20 16:46:00 EDT, Tablet, [facility]/pharmacy #0859, Partial fill upon [...] Acute 11/20/20 15:45:00 EDT, 11/21/19 15:42:00 EDT, [facility] # 302, 113.6, kg, 01/22/19 15:29:00 EDT, Dry Weight Start Date: 11/21/19 Stop Date: 11/20/20 Status: Ordered zolpidem 10 mg oral tablet See Instructions, TAKE ONE TABLET BY MOUTH AT BEDTIME NEEDED 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, # 30 tablet, 5 Refills, Maintenance, 07/25/20 12:12:00 EST, [facility] # 302, 179, cm, 07/18/20 14:54:00 EST, Height, 113.6, kg, 01/22/19 15:29:00 EDT, Dry Weight Start Date: 07/25/20 Status: Ordered zolpidem 10 mg oral tablet See Instructions, TAKE ONE TABLET BY MOUTH AT BEDTIME NEEDED 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, # 30 tablet, 5 Refills, Maintenance, 07/24/20 13:33:00 EST, [facility]/pharmacy #0859, 179, cm, 07/18/20 14:54:00 [...]
--- OUTSIDE RECORDS SUMMARY | 2024-03-27 15:13 | XMS_ITS | Continuity of Care Document ---
Author Organization [facility] Address [address] [place] [address]- Care Team Providers Care Transfer Controller Name Role Phone Yaima Brizuela MD Primary Care Physician [phone] Encounter [facility] Date(s): 03/23/23 - 04/22/23 [facility] [address] [place], [place] [address] Allergies, Adverse Reactions, Alerts Substance Reaction Severity Status terazosin DIZZINESS Active Glutens Active Xolair anaphylaxis Active Immunizations Given and Recorded Vaccine Date Status Refusal Reason [id number] 12y+ bivalent booster vax 03/26/22 Recorded SARS-CoV-2 [...] Refills, Maintenance, 03/14/23 6:44:00 EDT, [facility], 178, cm, 01/24/23 15:44:00 EDT, Height, 109.5, [...] Stop, 10/25/19 11:51:00 EDT, Shampoo, [facility]/pharmacy #0859, 1 application Topically Daily, 113.6, kg, 01/22/19 15:29:00 EDT, Dry Weight Start Date: 10/25/19 Status: Ordered ketotifen 0.025% ophthalmic solution 1 drops, Eyes, Both, Every 8 hours, # 7.5 mL, 1 Refills, Maintenance, 08/25/22 15:57:00 EDT, Solution, [facility]/pharmacy #[id number], Partial fill upon patient [...] MOUTH AT BEDTIME NEEDED 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
--- OUTSIDE RECORDS SUMMARY | 2024-03-27 15:13 | XMS_ITS | Continuity of Care Document ---
Author Organization [facility] Address [address] [place] [address]- Care Team Providers Care Continuous Mining Machine Operator Name Role Phone Yaima Brizuela MD Primary Care Physician [phone] [place] [facility] [place](s): 10/20/20 - 11/19/20 [facility] [address] [place], [place] [address] Allergies, Adverse Reactions, Alerts [...] 56 tablet, 0 Refills, Acute, 08/20/20 8:36:00EDT, [facility] ST[facility]10, 179, cm, 07/18/20 14:54:00 EST, Height, 113.6, [...] Physician Stop 03/02/21 12:22:00 EDT, 05/06/20 12:22:00 [facility] # 302, 1 tablet... Start [...] 3 Refills, Maintenance, 10/10/19 11:17:00 EDT, Tablet, [facility]/pharmacy #0859, 113.6, kg, 01/22/19 15:29:00 EDT, Dry Weight Start Date: 10/10/19 Status: Ordered rizatriptan 5 mg oral tablet 1 tablet = 5 mg, By Mouth, Daily, PRN for migraine headache, may repeat dose every 2 hours up to a maximum of 3, # 30 tablet, 5 Refills, Maintenance, 10/09/20 16:46:00 EDT, Tablet, [facility]/pharmacy #0859, Partial fill [...] Acute 11/20/20 15:45:00 EDT, 11/21/19 15:42:00 EDT, [facility] # 302, 113.6, kg, 01/22/19 15:29:00 EDT, Dry Weight Start Date: 11/21/19 Stop Date: 11/20/20 Status: Ordered zolpidem 10 mg oral tablet See Instructions, TAKE ONE TABLET BY MOUTH AT BEDTIME NEEDED 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, # 30 tablet, 5 Refills, Maintenance, 07/25/20 12:12:00 EST, [facility] # 302, 179, cm, 07/18/20 14:54:00 EST, Height, 113.6, kg, 01/22/19 15:29:00 EDT, Dry Weight Start Date: 07/25/20 Status: Ordered zolpidem 10 mg oral tablet See Instructions, TAKE ONE TABLET BY MOUTH AT BEDTIME NEEDED 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, # 30 tablet, 5 Refills, Maintenance, 07/24/20 13:33:00 EST, [facility]/pharmacy #[id number], 179, cm, 07/18/20 14:54:00 EST, [...]
--- OUTSIDE RECORDS SUMMARY | 2024-03-27 15:13 | XMS_ITS | Continuity of Care Document ---
Author Organization [facility] Address [address] [place] [address]- Care Team Providers Care Culture Media Laboratory Assistant Name Role Phone Chata HUGHES, Yaima Reed Primary Care Physician [phone] [place] [facility] [place]/03[place]19 - 01/02/20 [facility] [address] [place] [address]- [facility] Allergies, Adverse Reactions, Alerts Substance [...] Acute 11/20/20 15:45:00 EDT, 11/21/19 15:42:00 EDT, [facility] # 302, 113.6, kg, 01/22/19 [...]
--- OUTSIDE RECORDS SUMMARY | 2024-03-27 15:13 | XMS_ITS | Continuity of Care Document ---
Author Organization [facility] Address [address] [place] [address]- Care Team Providers Care Summer Nanny Name Role Phone Chata HUGHES, Yaima Reed Primary Care Physician [phone] Encounter [facility] [place] Date(s): 06/09/23 - 07/09/23 [facility] [address] [place] [address]- Allergies, Adverse Reactions, Alerts Substance Reaction Severity Status terazosin DIZZINESS Active Glutens Active Xolair anaphylaxis Active Immunizations Given and Recorded Vaccine Date Status Refusal Reason SARS-CoV-2(COVID-19)mRNA-LNP vac([id number]) 03/18/23 Recorded [id number] 12y+ bivalent booster vax 03/26/22 Recorded SARS-CoV-2 (COVID-19) mRNA BNT-162b2 vac 1 06/25/21 Recorded SARS-CoV-2 (COVID-19) mRNA BNT-162b2 vac 01/03/21 Recorded SARS-CoV-2 (COVID-19) mRNA BNT-162b2 vac 12/13/20 Recorded 1Result Comment: 3rd dose Medications candesartan 4 mg oral tablet 1/2 TO 1 TABLET, By Mouth, Daily, # 90 tablet, 1 Refills, Maintenance, 03/14/23 6:44:00 EDT, [facility], 178, cm, 01/24/23 15:44:00 EDT, Height, 109.5, [...] AT BEDTIME NEEDED 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
--- OUTSIDE RECORDS SUMMARY | 2024-03-27 15:13 | XMS_ITS | Continuity of Care Document ---
Author Organization [facility] Address [address] [place] [address]- Care Team Providers Care Sales Enablement Manager Name Role Phone Yaima Brizuela MD Primary Care Physician [phone] [place] [facility] [place](s[place] 06/09/20 - 11/17/[address] [address]- Discharge Disposition: A-D/C Home Attending Physician: Yaima Brizuela MD Admitting Physician: Yaima Brizuela MD Referring Physician: Yaima Brizuela MD Allergies, [...] 0 Refills, Maintenance, 10/07/20 8:17:00 EDT, Tablet, [facility]/pharmacy #[id number], Partial fill upon patient [...] 56 tablet, 0 Refills, Acute, 08/20/20 8:36:00EDT, [facility] STORE 41335, 179, cm, 07/18/20 14:54:00 EST, Height, 113.6, [...] Refills, Soft Stop, 10/25/19 11:51:00 EDT, Shampoo, [facility]/pharmacy #0859, 1 application Topically Daily, 113.6, kg, [...] Physician Stop 03/02/21 12:22:00 EDT, 05/06/20 12:22:00 [facility] 302, 1 tablet... Start Date: [...] 3 Refills, Maintenance, 10/10/19 11:17:00 EDT, Tablet, [facility]/pharmacy #0859, 113.6, kg, 01/22/19 15:29:00 EDT, Dry Weight Start Date: 10/10/19 Status: Ordered rizatriptan 5 mg oral tablet 1 tablet = 5 mg, By Mouth, Daily, PRN for migraine headache, may repeat dose every 2 hours up to a maximum of 3, # 30 tablet, 5 Refills, Maintenance, 10/09/20 16:46:00 EDT, Tablet, [facility]/pharmacy #[id number], Partial fill upon patient [...] Acute 11/20/20 15:45:00 EDT, 11/21/19 15:42:00 EDT, [facility] # 302, 113.6, kg, 01/22/19 15:29:00 EDT, Dry Weight Start Date: 11/21/19 Stop Date: 11/20/20 Status: Ordered zolpidem 10 mg oral tablet See Instructions, TAKE ONE TABLET BY MOUTH AT BEDTIME NEEDED 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, # 30 tablet, 5 Refills, Maintenance, 07/25/20 12:12:00 EST, [facility] # 302, 179, cm, 07/18/20 14:54:00 EST, Height, 113.6, kg, 01/22/19 15:29:00 EDT, Dry Weight Start Date: 07/25/20 Status: Ordered zolpidem 10 mg oral tablet See Instructions, TAKE ONE TABLET BY MOUTH AT BEDTIME NEEDED 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, # 30 tablet, 5 Refills, Maintenance, 07/24/20 13:33:00 EST, [facility]/pharmacy #[id number], 179, cm, 07/18/20 14:54:00 EST, Height, [...]
--- OUTSIDE RECORDS SUMMARY | 2024-03-27 15:13 | XMS_ITS | Continuity of Care Document ---
Author Organization [facility] Address [address] [place] [address]- Care Team Providers Care Certified Pharmacy Tech Name Role Phone Yaima Brizuela MD Primary Care Physician [phone] [place] [facility] [place] 02/21/23 - 03/23/23 [facility] [address] [place], [place] [address] Allergies, Adverse Reactions, Alerts Substance Reaction Severity Status terazosin DIZZINESS Active Glutens Active Xolair anaphylaxis Active Immunizations Given and Recorded Vaccine Date Status Refusal Reason [id number] 12y+ bivalent booster vax 03/26/22 Recorded SARS-CoV-2 [...] Refills, Maintenance, 03/14/23 6:44:00 EDT, [facility], 178, cm, 01/24/23 15:44:00 EDT, Height, 109.5, [...] Refills, Soft Stop, 10/25/19 11:51:00 EDT, Shampoo, [facility]/pharmacy #0859, 1 application Topically Daily, 113.6, kg, 01/22/19 15:29:00 EDT, Dry Weight Start Date: 10/25/19 Status: Ordered ketotifen 0.025% ophthalmic solution 1 drops, Eyes, Both, Every 8 hours, # 7.5 mL, 1 Refills, Maintenance, 08/25/22 15:57:00 EDT, Solution, [facility]/pharmacy #0859, Partial fill upon patient request if [...] MOUTH AT BEDTIME NEEDED 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 Physician - Primary Care Member Role: PCP Address: Address: [address] [place] [address]- Care Team Related Persons Name: AISHA ESTEVES Address: home [address] [facility] [address] [place] [address] Name: CECE ESTEVES Address: [place] [address] Name: CECE NUÑEZ Address: home [address] [place] [address]
--- OUTSIDE RECORDS SUMMARY | 2024-03-27 15:14 | XMS_ITS | Continuity of Care Document ---
Author Organization [facility] Address [address] [place] [address]- Care Team Providers Care Security Solutions Engineer Name Role Phone Chata HUGHES, Yaima Reed Primary Care Physician [phone] [place] [facility] [place]/04/[place] - 02/03/22 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 Start [...] Team Personnel Name: Yaima Brizuela MD Address: [address] [place] [address]
--- OUTSIDE RECORDS SUMMARY | 2024-03-27 15:14 | XMS_ITS | Continuity of Care Document ---
Author Organization [facility] Address [address] [place] [address]- Care Team Providers Care Clinical Registered Nurse Name Role Phone Chata HUGHES, Yaima Reed Primary Care Physician [phone] Encounter [facility] [place] [facility] [place] [id number] Date(s): 11/10/22 - 12/10/22 [facility] [address] [place] [address]- Allergies, Adverse Reactions, Alerts Substance Reaction Severity Status terazosin DIZZINESS Active Glutens Active Xolair anaphylaxis Active Immunizations Given and Recorded Vaccine Date Status Refusal Reason [id number] 12y+ bivalent booster vax 03/26/22 Recorded SARS-CoV-2 [...] Refills, Maintenance, 11/10/22 15:49:00 EDT, Tablet, [facility]/pharmacy #[id number], Partial fill upon patient request if the [...] Refills, Maintenance, 08/25/22 15:57:00 EDT, Solution, [facility]/pharmacy #0859, Partial fill upon patient [...] MOUTH AT BEDTIME NEEDED 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 AURABINDO SCOURING TRAIN OPERATOR, # 30 tablet, 5 Refills, Maintenance, 08/23/22 15:12:00 EDT, [id number], AURABINDO SCOURING TRAIN OPERATOR ONLY PLEASE, 177.8, cm, 06/17/22 10:52:00 [...] Team Personnel Name: Yaima Brizuela MD Position: [facility] Physician - Primary Care Member Role: PCP Address: Address: [address] [place] [address]- Care Team Related Persons Name: AISHA ESTEVES Address: home [address] [address] Name: CECE ESTEVES Address: [place] [address] Name: CECE NUÑEZ Address: home [address] [place] [address]
--- OUTSIDE RECORDS SUMMARY | 2024-03-27 15:14 | XMS_ITS | Continuity of Care Document ---
Author Organization [facility] Address [address] [place] [address]- Care Team Providers Care Media Services Specialist Name Role Phone Chata HUGHES, Yaima Reed Primary Care Physician [place] [facility] [place] 02/[place]/23 - 03/30/23 [facility] [address] [place] [address]- Allergies, Adverse Reactions, Alerts Substance Reaction Severity Status terazosin DIZZINESS Active Glutens Active Xolair anaphylaxis Active Immunizations Given and Recorded Vaccine Date Status Refusal Reason [id number] 12y+ bivalent booster vax 03/26/22 Recorded SARS-CoV-2 [...] Refills, Maintenance, 03/14/23 6:44:00 EDT, [facility], 178, cm, 01/24/23 15:44:00 EDT, Height, 109.5, [...] Stop, 10/25/19 11:51:00 EDT, Shampoo, [facility]/pharmacy #0859, 1 application Topically Daily, 113.6, kg, 01/22/19 15:29:00 EDT, Dry Weight Start Date: 10/25/19 Status: Ordered ketotifen 0.025% ophthalmic solution 1 drops, Eyes, Both, Every 8 hours, # 7.5 mL, 1 Refills, Maintenance, 08/25/22 15:57:00 EDT, Solution, [facility]/pharmacy #[id number], Partial fill upon patient request [...] MOUTH AT BEDTIME NEEDED 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 AURABINDO CAPACITOR TESTER, # 30 tablet, 5 Refills, Maintenance, 02/22/23 13:51:00 EDT, [id number], AURABINDO CAPACITOR TESTER ONLY PLEASE, 178, cm, 01/24/23 15:44:00 EDT, [...] Primary Care Member Role: PCP Address: Address: [address] [place] [address]- Care Team Related Persons Name: AISHA ESTEVES Address: home [address] [place] [address] Name: CECE ESTEVES Address: [place] [address] Name: CECE NUÑEZ Address: home [address] [place] [address]
--- OUTSIDE RECORDS SUMMARY | 2024-03-27 15:14 | XMS_ITS | Continuity of Care Document ---
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 Migraines(Discharge Diagnosis) - 06/17/22 RUQ pain(Discharge Diagnosis) - 06/17/22 Attending Physician: Yaima Brizuela MD Allergies, Adverse Reactions, Alerts Substance Reaction Severity Status terazosin DIZZINESS Active Glutens Active Xolair anaphylaxis Active Immunizations Given and Recorded Vaccine Date Status Refusal Reason [id number] 12y+ bivalent booster vax 03/26/22 Recorded SARS-CoV-2 [...] 07/01/22 12:02:00 EST, 06/17/22 12:02:00 EST, Cream, [facility]/pharmacy #[id number], Partial fill upon patient request if the [...] MOUTH AT BEDTIME NEEDED 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 AURABINDO CUSTOMER COUNTER REPRESENTATIVE, # 30 tablet, 5 Refills, Maintenance, 03/05/22 11:51:00 EDT, [id number], AURABINDO CUSTOMER COUNTER REPRESENTATIVE ONLY PLEASE, 177.8, cm, 03/05/22 11:17:00 EDT,... [...] Clinical Service Informant Tommy's thyroiditis Discharge Diagnosis 06/17/22 Amos-Danlos syndrome Discharge Diagnosis 06/17/22 Mast cell activation Discharge Diagnosis 06/17/22 Migraines Discharge Diagnosis 06/17/22 RUQ pain Discharge Diagnosis 06/17/22 Vital Signs Most recent to oldest [Reference Range]: 1 Height 177.8 cm (06/17/22 10:52 AM) Weight 109.9 kg (06/17/22 10:52 AM) Oxygen Saturation [94-100 %] 98 % (06/17/22 10:52 AM) Pulse Rate [55-90 bpm] 100 bpm *H* (06/17/22 10:52 AM) Body Mass Index [18.5-24.99 kg/m2] 34.76 kg/m2 *>HHI* (06/17/22 10:52 AM) Blood Pressure [90-138/55-84 mm Hg] 106/ 62mm Hg (06/17/22 10:52 AM) Respiratory Rate [16-30 br/min] 16 br/mi n (06/17/22 10:52 AM) Temperature [96.8-100.4 DegF] 97.5 DegF (06/17/22 10:52 AM) Mode of Delivery (Oxygen) Room air (06/17/22 10:52 AM) Blood pressure sites Arm, left (06/17/22 10:52 AM) Temperature Route Temporal (06/17/22 10:52 AM) Weight Obtained Via Standing scale (06/17/22 10:52 AM) Social History Social History Type Response Smoking Status Never (less than 100 in lifetime) entered on: 05/14/21 Sex Note * Arianna Diggs: PERFORM, SIGN, VERIFY Event Display: Patient Education/Instruction Authored Date: [id number] [facility] *[facility] Clinical Summary Name NITA ESTEVES Age 37 Years 1985 PCP Yaima Brizuela MD PCP Visit Date 06/17/2022 10:50:00 Additional Instructions: Scheduled Appointments?? Future Appointments ?No Future Appointments Scheduled Follow-Up Instructions ?? Diagnosis Medications: Please continue your medications until treatment is completed or stopped by your provider. Discuss any questions related to medications with your provider. New Medications [id number] [address], [place] [id number], [phone] Triamcinolone Topical (triamcinolone 0.1% topical cream) 1 marge Topically 3 times a day for 14 Days.Refills: 0. Next Dose: Medications to Continue Taking That Have Changed These medications were not printed or sent to your pharmacy - Ascorbic Acid (Vitamin C 1000 mg oral tablet) 1 tab(s) Oral twice a day. Next Dose: - atogepant (Qulipta 60 mg oral tablet) TAKE 1 TABLET BY MOUTH ONCE A DAY FOR MIGRAINE PREVENTION. Next Dose: - Phytonadione (Vitamin K1) 100mcg daily. Next Dose: Medications to Continue with No Changes These medications were not printed or sent to your pharmacy Benzonatate (Tessalon Perles) 100 Milligram Oral 3 [...] Next Dose: Ethinyl Estradiol / Norethindrone (Junel 30 oral tablet) Next Dose: Fluconazole (fluconazole 150 [...] 1 Drops Both eyes every 8 hours. Next Dose: Liothyronine (liothyronine 25 mcg oral [...] (INS ONLY COVERS 1 DAILY). Next Dose: Zolpidem (zolpidem 10 mg oral tablet) TAKE 1 TABLET BY MOUTH AT BEDTIME NEEDED 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 AURABINDO CUSTOMER COUNTER REPRESENTATIVE. Refills: 5. Next Dose: Allergy Info:?? Xolair; Glutens; terazosin Medications Given This Visit Future Orders ?TSH? Order Date:06/17/22?- Complete on or after?06/17/22 ?T3 Free? Order Date:06/17/22?- Complete on or after?06/17/22 ?Free T4? Order Date:06/17/22?- Complete on or after?06/17/22 ?Thyroid Antimicrosomal Ab? Order Date:06/17/22?- Complete on or after?06/17/22 ?T3 Reverse? Order Date:06/17/22?- Complete on or after?06/17/22 ?Iron + Iron Binding Capacity? Order Date:06/17/22?- Complete on or after?06/17/22 ?Thiamine Level? Order Date:06/17/22?- Complete on or after?06/17/22 ?Comprehensive Metabolic Panel? Order Date:06/17/22?- Complete on or after?06/17/22 ?Vitamin B12 Level? Order Date:06/17/22?- Complete on or after?06/17/22 ?Ferritin? Order Date:06/17/22?- Complete on or after?06/17/22 ?Folate Level? Order Date:06/17/22?- Complete on or after?06/17/22 ?Vitamin D 25 Hydroxy Level? Order Date:06/17/22?- Complete on or after?06/17/22 ?Thyroglobulin Ab? Order Date:06/17/22?- Complete on or after?06/17/22 Vital Signs Height 177.8 cm Weight 109.9 kg BMI 34.76 kg/m2 Blood Pressure 106 mm Hg/62 mm Hg Temperature 97.5 DegF Pulse Rate 100 bpm Respiratory Rate 16 br/min 02 Sat Mode of Delivery 98 %/Room air You can now view a summary of your hospital visit from the comfort of your home through a free online portal called Medine. Medine is a website that allows you to securely view your medical information including discharge summary, medications and follow-up visits. ??You can alsosend a secure electronic message to your doctor???s office to request appointments, renew medications or just ask a question. You can enroll at [email or web address] or register during your next office visit. [...] primary care provider, you may find a [facility] provider by calling [facility] at [phone]. For information about the plan of care [...] Team Personnel Name: Yaima Brizuela MD Position: [facility] Primary Care Physician Member Role: PCP Address: Address: [address] [place] [address]- Care Team Related Persons Name: AISHA ESTEVES Address: home [address] [address] Name: CECE ESTEVES Name: CECE NUÑEZ Address: home [address] [place] [address]
--- OUTSIDE RECORDS SUMMARY | 2024-03-27 15:14 | XMS_ITS | Continuity of Care Document ---
Author Organization [facility] Address [address] [place] [address]- Care Team Providers Care Tabulating Machine Mechanic Name Role Phone Yiama Brizuela MD Primary Care Physician Encounter [facility] R [id number] Date(s): 10/05/19 - 10/12/19 [facility] [address] [place] [address]- [facility] Encounter Diagnosis Fibromyalgia(Discharge Diagnosis) - 10/05/19 Mast cell activation(Discharge Diagnosis) - 10/05/19 Tommy's thyroiditis(Discharge Diagnosis) - 10/05/19 Endometriosis(Discharge Diagnosis) - 10/05/19 Asthma(Discharge Diagnosis) - 10/05/19 Insomnia(Discharge Diagnosis) - 10/05/19 Attending Physician: Yaima Brizuela MD Allergies, Adverse Reactions, Alerts Substance Reaction Severity Status Glutens Active Medications Claritin 10 mg oral tablet 20 mg, 2, tablet, By Mouth, Daily, # 30 tablet, Refills 0, Maintenance, 01/22/19 19:00:58 EDT Start Date: 01/22/19 Status: Ordered clindamycin 1% topical lotion 1 application, Topically, 2 times a day, # 60 mL, 2 Refills, Maintenance, 09/24/19 14:55:00 EDT, Lotion, [id number], 1 application Topically 2 times a [...] 12:48:00 EST Start Date: 06/01/19 Status: Ordered KETOTIFEN TWICE DAILY KETOTIFEN TWICE DAILY, Refills 0, Maintenance, 09/24/19 14:59:00 EDT, Supply Start Date: 09/24/19 Status: Ordered liothyronine 25 mcg oral tablet See Instructions, TAKES 4 TABS BY Mouth Daily, 0 Refills, Maintenance, 03/05/19 15:16:09 EDT, Tablet Start Date: 03/05/19 Status: Ordered Melatonin 3 mg oral tablet 1 tablet = 3 mg, By Mouth, Daily at bedtime, PRN for insomnia, for 30 days, # 30 tablet, 1 Refills,Acute 11/23/19 15:01:00 EDT, 09/24/19 15:01:00 EDT, Tablet, [facility]/pharmacy #[id number], 1 tablet By Mouth Daily at bedtime,x30 days,PRN:for insomnia, 113.6, kg... Start Date: 09/24/19 Stop Date: 11/23/19 Status: Ordered Monural 3 gm oral powder for reconstitution 1 DOSE EVERY 48 HOURS DIRECTED Start Date: 01/22/19 Status: Ordered Probiotic Formula 1 capsule, By Mouth, Daily, 0 Refills, Maintenance, 01/22/19 19:02:57 EDT Start Date: 01/22/19 Status: Ordered riboflavin 100 mg oral tablet See Instructions, 4 tablet By Mouth Daily, # 100 tablet, 3 Refills, Maintenance, 10/10/19 11:17:00 EDT, Tablet, [facility]/pharmacy #[id number], 113.6, kg, 01/22/19 15:29:00 [...] Effective Dates Health Status Clinical Service Informant Fibromyalgia Discharge Diagnosis 10/05/19 Mast cell activation Discharge Diagnosis 10/05/19 Tommy's thyroiditis Discharge Diagnosis 10/05/19 Endometriosis Discharge Diagnosis 10/05/19 Asthma Discharge Diagnosis 10/05/19 Insomnia Discharge Diagnosis 10/05/19
--- OUTSIDE RECORDS SUMMARY | 2024-03-27 15:14 | XMS_ITS | Continuity of Care Document ---
Author Organization [facility] Address [address] [place] [address]- Care Team Providers Care Data Reporting Analyst Name Role Phone Yaima Brizuela MD Primary Care Physician Encounter [facility] Date(s): 08/24/22 - 09/23/22 [facility] [address] [place], [place] [address] Allergies, Adverse Reactions, Alerts Substance Reaction Severity Status terazosin DIZZINESS Active Glutens Active Xolair anaphylaxis Active Immunizations Given and Recorded Vaccine Date Status Refusal Reason [id number] 12y+ bivalent booster vax 03/26/22 Recorded SARS-CoV-2 [...] MOUTH AT BEDTIME NEEDED 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 AURABINDO KIT PLANNER, # 30 tablet, 5 Refills, Maintenance, 08/23/22 15:12:00 EDT, [id number], AURABINDO KIT PLANNER ONLY PLEASE, 177.8, cm, 06/17/22 10:52:00 EST,... [...] Yaima Brizuela MD Position: [facility] Primary Care Physician Member Role: PCP Address: Address: [address] [place] [address]- Care Team Related Persons Name: AISHA ESTEVES Address: home [address] [address] Name: CECE ESTEVES Name: CECE NUÑEZ Address: home [address] [place] [address]
--- OUTSIDE RECORDS SUMMARY | 2024-03-27 15:14 | XMS_ITS | Continuity of Care Document ---
Author Organization [facility] Address [address] [place] [address]- Care Team Providers Care Hospital Medicine Director Name Role Phone Chata HUGHES, Yaima Reed Primary Care Physician [phone] [place] [facility] Date(s): 12/28/21 - 01/27/22 [facility] [address] [place] [address]- Allergies, Adverse Reactions, Alerts Substance Reaction Severity [...] Refills, Soft Stop, 10/25/19 11:51:00 EDT, Shampoo, [facility]/pharmacy #[id number], 1 application Topically Daily, 113.6, [...] MOUTH AT BEDTIME NEEDED 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 AURABINDO BOW MAKER, # 30 tablet, 5 Refills, Maintenance, 11/25/21 16:15:00 EDT, [id number], AURABINDO BOW MAKER ONLY PLEASE, 177.8, cm, 11/20/21 14:05... Start [...]
--- OUTSIDE RECORDS SUMMARY | 2024-03-27 15:14 | XMS_ITS | Continuity of Care Document ---
Author Organization [facility] Address [address] [place] [address]- Care Team Providers Care Tariff Compiling Clerk Name Role Phone Chata HUGHES, Yaima Reed Primary Care Physician [phone] Encounter [facility] Date(s): 04/13/21 - 05/13/21 [facility] [address] [place], [place] [address] Allergies, Adverse Reactions, Alerts Substance Reaction [...] opioid drug. Start Date: 04/21/21 Status: Ordered doxycycline monohydrate 100 mg oral tablet 1 tablet, By Mouth, 2 times a day, UNTIL FINISHED., # 56 tablet, 0 Refills, Acute, 08/20/20 8:36:00EDT, [facility] STORE [id number], 179, cm, 07/18/20 14:54:00 EST, Height, 113.6, [...] opioid drug. Start Date: 04/21/21 Status: Ordered ketoconazole 2% topical shampoo 1 application, Topically, Daily, # 120 mL, 0 Refills, Soft Stop, 10/25/19 11:51:00 EDT, Shampoo, [facility]/pharmacy #[id number], 1 application Topically Daily, [...] Maintenance, 12/09/20 11:35:00 EDT, Tablet, [facility]/pharmacy #[id number], 179, cm, 11/27/20 14:03:00 EDT, Height, 121.1, kg, 10/22/20 14:46:00 EDT, Dry Weight Start Date: 12/09/20 Status: Ordered rizatriptan 5 mg oral tablet 1 tablet = 5 mg, By Mouth, Daily, PRN for migraine headache, may repeat dose every 2 hours up to a maximum of 3, # 30 tablet, 5 Refills, Maintenance, 10/09/20 16:46:00 EDT, Tablet, [facility]/pharmacy #[id number], Partial [...] tablet, 5 Refills, Maintenance, 07/24/20 13:33:00 EST, [facility]/pharmacy #[id number], 179, cm, 07/18/20 14:54:00 EST, Height, 113.6, kg, 01/22/19 15:29:00 EDT, Dry Weight Start Date: 07/24/20 Status: Ordered zolpidem 10 mg oral tablet See Instructions, TAKE ONE TABLET BY MOUTH AT BEDTIME NEEDED 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, # 30 tablet, 5 Refills, Maintenance, 02/16/21 15:29:00 EDT, [facility]/pharmacy #[id number], 179, cm, 02/12/21 11:02:00 EDT, Height, 121.1, kg, 10/22/20 14:46:00 EDT, Dry Weight Start Date: 02/16/21 Status: Ordered zolpidem 10 mg oral tablet See Instructions, TAKE ONE TABLET BY MOUTH AT BEDTIME NEEDED 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, # 30 tablet, 5 Refills, Maintenance, 02/17/21 15:40:00 EDT, [facility] # 302, 179, cm, 02/12/21 11:02:00 [...]
--- OUTSIDE RECORDS SUMMARY | 2024-03-27 15:14 | XMS_ITS | Continuity of Care Document ---
Author Organization [facility] Address [address] [place] [address]- Care Team Providers Care Geospatial Systems Integrator Name Role Phone Yaima Brizuela MD Primary Care Physician Encounter [facility] Date(s): 12/03/21 - 12/10/21 [facility] [address] [place], [place] [address] Encounter Diagnosis Amos-Danlos syndrome(Discharge Diagnosis) - 12/03/21 Tommy's thyroiditis(Discharge Diagnosis) - 12/03/21 Mast cell activation(Discharge Diagnosis) - 12/03/21 Insomnia(Discharge Diagnosis) - 12/03/21 Migraine(Discharge Diagnosis) - 12/03/21 Attending Physician: Yaima Brizuela MD Allergies, Adverse [...] MOUTH AT BEDTIME NEEDED 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 AURABINDO CRUSHER LOADER EQUIPMENT OPERATOR, # 30 tablet, 5 Refills, Maintenance, 11/25/21 16:15:00 EDT, [facility] #[id number], AURABINDO CRUSHER LOADER EQUIPMENT OPERATOR ONLY PLEASE, 177.8, cm, 11/20/21 14:05... [...] Clinical Service Informant Amos-Danlos syndrome Discharge Diagnosis 12/03/21 Tommy's thyroiditis Discharge Diagnosis 12/03/21 Mast cell activation Discharge Diagnosis 12/03/21 Insomnia Discharge Diagnosis 12/03/21 Migraine Discharge Diagnosis 12/03/21 Vital Signs Most recent to oldest [Reference Range]: 1 Height 177.8 cm (12/03/21 11:05 AM) Weight 111.2 kg (12/03/21 11:05 AM) Oxygen Saturation [94-100 %] 98 % (12/03/21 11:05 AM) Pulse Rate [55-90 bpm] 103 bpm *H* (12/03/21 11:05 AM) Body Mass Index [18.5-24.99] 35.18 *>HHI* (12/03/21 11:05 AM) Blood Pressure [90-138/55-84 mm Hg] 108/ 68mm Hg (12/03/21 11:05 AM) Temperature [96.8-100.4 DegF] 96.8 DegF (12/03/21 11:05 AM) Mode of Delivery (Oxygen) Room air (12/03/21 11:05 AM) Blood pressure sites Arm, right (12/03/21 11:05 AM) Temperature Route Temporal (12/03/21 11:05 AM) Social History Social History Type Response Smoking Status Never (less than 100 in lifetime) entered on: 05/14/21 Sex
--- OUTSIDE RECORDS SUMMARY | 2024-03-27 15:14 | XMS_ITS | Continuity of Care Document ---
Author Organization [facility] Address [address] [place] [address]- Care Team Providers Care Sales Performance Manager Name Role Phone Yaima Brizuela MD Primary Care Physician [phone] Encounter [facility] Date(s): 10/25/19 - 11/24/19 [facility] [address] [place] [address]- [facility] Attending Physician: Jason Gonzalez Admitting Physician: [...] tablet, 5 Refills, Acute, 10/26/19 8:04:00 EDT, [facility] STORE 40848, 30, TAKE 1 TABLET BY MOUTH DAILY [...] Maintenance, 10/10/19 11:17:00 EDT, Tablet, [facility]/pharmacy #[id number], 113.6, kg, 01/22/19 15:29:00 EDT, [...] Acute 11/20/20 15:45:00 EDT, 11/21/19 15:42:00 EDT, [facility] # 302, 113.6, kg, 01/22/19 [...]
--- OUTSIDE RECORDS SUMMARY | 2024-03-27 15:14 | XMS_ITS | Continuity of Care Document ---
Author Organization [facility] Address [address] [place] [address]- Care Team Providers Care Tripoler Name Role Phone Yaima Brizuela MD Primary Care Physician Encounter [facility] Date(s): 11/27/20 - 12/27/20 [facility] [address] [place] [address]- Attending Physician: Jason Gonzalez Admitting Physician: Jason [...] 0 Refills, Maintenance, 10/07/20 8:17:00 EDT, Tablet, [facility]/pharmacy #[id number], Partial fill [...] 56 tablet, 0 Refills, Acute, 08/20/20 8:36:00EDT, [facility] STORE [id number], 179, cm, 07/18/20 14:54:00 EST, Height, 113.6, [...] Refills, Soft Stop, 10/25/19 11:51:00 EDT, Shampoo, [facility]/pharmacy #[id number], 1 application Topically Daily, [...] 3 Refills, Maintenance, 12/09/20 11:35:00 EDT, Tablet, [facility]/pharmacy #[id number], 179, cm, 11/27/20 14:03:00 EDT, Height, 121.1, kg, 10/22/20 14:46:00 EDT, Dry Weight Start Date: 12/09/20 Status: Ordered rizatriptan 5 mg oral tablet 1 tablet = 5 mg, By Mouth, Daily, PRN for migraine headache, may repeat dose every 2 hours up to a maximum of 3, # 30 tablet, 5 Refills, Maintenance, 10/09/20 16:46:00 EDT, Tablet, [facility]/pharmacy #[id number], Partial fill [...] tablet, 5 Refills, Maintenance, 07/25/20 12:12:00 EST, [facility] # 302, 179, cm, 07/18/20 14:54:00 EST, Height, 113.6, kg, 01/22/19 15:29:00 EDT, Dry Weight Start Date: 07/25/20 Status: Ordered zolpidem 10 mg oral tablet See Instructions, TAKE ONE TABLET BY MOUTH AT BEDTIME NEEDED 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, # 30 tablet, 5 Refills, Maintenance, 07/24/20 13:33:00 EST, [facility]/pharmacy #[id number], 179, cm, 07/18/20 14:54:00 [...]
--- OUTSIDE RECORDS SUMMARY | 2024-03-27 15:14 | XMS_ITS | Continuity of Care Document ---
Author Organization [facility] Address [address] [place] [address]- Care Team Providers Care Metal Cut Off Saw Tender Name Role Phone Yaima Brizuela MD Primary Care Physician Encounter [facility] Date(s): 02/03/23 - 03/05/23 [facility] [address] [place], [place] [address] Allergies, Adverse Reactions, Alerts Substance Reaction Severity Status terazosin DIZZINESS Active Glutens Active Xolair anaphylaxis Active Immunizations Given and Recorded Vaccine Date Status Refusal Reason [id number] 12y+ bivalent booster vax 03/26/22 Recorded SARS-CoV-2 [...] 2 Refills, Maintenance, 11/10/22 15:49:00 EDT, Tablet, [facility]/pharmacy #[id number], Partial fill upon patient request if the [...] EDT Start Date: 12/18/19 Status: Ordered Diflucan 150 mg oral tablet 1 tablet = 150 mg, By Mouth, Every 48 hours, # 2 tablet, 0 Refills, Acute 03/12/23 12:37:00 EDT, 03/02/23 12:37:00 EDT, Tablet, [facility]/pharmacy #[id number], Partial fill upon patient request if the prescription is for a schedule II opioid drug., 178, cm, 01/24... Start Date: 03/02/23 Stop Date: 03/12/23 Status: Ordered fluconazole 150 mg oral tablet [...] Refills, Soft Stop, 10/25/19 11:51:00 EDT, Shampoo, [facility]/pharmacy #0859, 1 application Topically [...] MOUTH AT BEDTIME NEEDED 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 AURABINDO PROJECT MANAGER ENTERTAINMENT AND MEDIA, # 30 tablet, 5 Refills, Maintenance, 02/22/23 13:51:00 EDT, [id number], AURABINDO PROJECT MANAGER ENTERTAINMENT AND MEDIA ONLY PLEASE, 178, cm, 01/24/23 15:44:00 EDT, Sam Start Date: 02/22/23 Status: Ordered ZyrTEC 10 [...] Yaima Brizuela MD Position: [facility] Physician - Primary Care Member Role: PCP Address: Address: [address] [place] [address]- Care Team Related Persons Name: AISHA ESTEVES Address: home [address] [place] [address] Name: CECE ESTEVES Address: [place] [address] Name: CECE NUÑEZ Address: home [address] [place] [address]
--- OUTSIDE RECORDS SUMMARY | 2024-03-27 15:14 | XMS_ITS | Continuity of Care Document ---
Author Organization [facility] Address [address] [place] [address]- Care Team Providers Care Scada Engineer Name Role Phone Yaima Brizuela MD Primary Care Physician Encounter [facility] Date(s): 04/11/23 - 05/11/23 [facility] [address] [place], [place] [address] Allergies, Adverse Reactions, Alerts Substance Reaction Severity Status terazosin DIZZINESS Active Glutens Active Xolair anaphylaxis Active Immunizations Given and Recorded Vaccine Date Status Refusal Reason SARS-CoV-2(COVID-19)mRNA-LNP vac([id number]) 03/18/23 Recorded [id number] 12y+ bivalent booster vax 03/26/22 Recorded SARS-CoV-2 [...] Refills, Maintenance, 03/14/23 6:44:00 EDT, [facility], 178, cm, 01/24/23 15:44:00 EDT, Height, 109.5, [...] MOUTH AT BEDTIME NEEDED 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 AURABINDO RIP TAILER, # 30 tablet, 5 Refills, Maintenance, 02/22/23 13:51:00 EDT, [id number], AURABINDO RIP TAILER ONLY PLEASE, 178, cm, 01/24/23 15:44:00 EDT, [...] Team Personnel Name: Yaima Brizuela MD Position: [facility] Physician - Primary Care Member Role: PCP Address: Address: [address] [place] [address]- Care Team Related Persons Name: AISHA ESTEVES Address: home [address] [place] [address] Name: CECE ESTEVES Address: [place] [address] Name: CECE NUÑEZ Address: home [address] [place] [address]
--- OUTSIDE RECORDS SUMMARY | 2024-03-27 15:14 | XMS_ITS | Continuity of Care Document ---
Author Organization [facility] Address [address] [place] [address]- Care Team Providers Care Job Placement Specialist Name Role Phone Yaima Brizuela MD Primary Care Physician Encounter [facility] Date(s): 04/17/20 - 05/17/20 [facility] [address] [place] [address]- Allergies, Adverse Reactions, Alerts Substance Reaction Severity [...] Stop 03/02/21 12:22:00 EDT, 05/06/20 12:22:00 EST, [facility] # 302, 1 tablet... Start [...] Acute 11/20/20 15:45:00 EDT, 11/21/19 15:42:00 EDT, [facility] # 302, 113.6, kg, 01/22/19 15:29:00 EDT, Dry Weight Start Date: 11/21/19 Stop Date: 11/20/20 Status: Ordered zolpidem 10 mg oral tablet See Instructions, TAKE ONE TABLET BY MOUTH AT BEDTIME NEEDED 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, # 30 tablet, 3 Refills, Maintenance, 04/21/20 17:29:00 EST, [facility] # 302, 179, cm, 04/07/20 11:04:00 [...]
--- OUTSIDE RECORDS SUMMARY | 2024-03-27 15:14 | XMS_ITS | Continuity of Care Document ---
Author Organization [facility] Address [address] [place] [address]- Care Team Providers Care Strategic Planning Manager Name Role Phone Yaima Brizuela MD Primary Care Physician En[place] [facility] [place] Date(s): 06/09/20 - 07/09/20 [facility] [address] [place], [place] [address] Allergies, Adverse Reactions, Alerts Substance Reaction [...] 3 Refills, Maintenance, 10/10/19 11:17:00 EDT, Tablet, [facility]/pharmacy #[id number], 113.6, kg, 01/22/19 15:29:00 EDT, [...] Acute 11/20/20 15:45:00 EDT, 11/21/19 15:42:00 EDT, [facility] # 302, 113.6, kg, 01/22/19 15:29:00 EDT, Dry Weight Start Date: 11/21/19 Stop Date: 11/20/20 Status: Ordered zolpidem 10 mg oral tablet See Instructions, TAKE ONE TABLET BY MOUTH AT BEDTIME NEEDED 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, # 30 tablet, 3 Refills, Maintenance, 04/21/20 17:29:00 EST, [facility] # 302, 179, cm, 04/07/20 11:04:00 [...]
--- OUTSIDE RECORDS SUMMARY | 2024-03-27 15:14 | XMS_ITS | Continuity of Care Document ---
Author Organization [facility] Address [address] [place] [address]- Care Team Providers Care Tree Specialist Name Role Phone Yaima Brizuela MD Primary Care Physician [place] [facility] [place] 04/29/21 - 05/29/21 [facility] [address] [place] [address]- Allergies, Adverse Reactions, Alerts Substance Reaction Severity [...] 3 Refills, Maintenance, 12/09/20 11:35:00 EDT, Tablet, [facility]/pharmacy #[id number], 179, cm, 11/27/20 14:03:00 [...] tablet, 5 Refills, Maintenance, 02/17/21 15:40:00 EDT, [facility] # 302, 179, cm, 02/12/21 11:02:00 [...]
--- OUTSIDE RECORDS SUMMARY | 2024-03-27 15:14 | XMS_ITS | Continuity of Care Document ---
Author Organization [facility] Address [address] [place] [address]- Care Team Providers Care Backfiller Name Role Phone Yaima Brizuela MD Primary Care Physician [phone] [place] [facility] [place] 01/24/24 - 02/23/24 [facility] [address] [place], [place] [address] Allergies, Adverse Reactions, Alerts Substance Reaction Severity Status terazosin DIZZINESS Active Glutens Active Xolair anaphylaxis Active Immunizations Given and Recorded Vaccine Date Status Refusal Reason SARS-CoV-2(COVID-19)mRNA-LNP vac([id number]) 03/18/23 Recorded [id number] 12y+ bivalent booster vax 03/26/22 Recorded SARS-CoV-2 [...] 1 Refills, Maintenance, 08/25/22 15:57:00 EDT, Solution, [facility]/pharmacy #0859, Partial fill upon patient request if [...] 3 Refills, Maintenance, 08/03/23 13:17:00 EST, Tablet, [facility]/pharmacy #0859, Partial fill upon patient request if [...] Refills, Maintenance, 11/28/23 8:27:00 EDT, [facility], 178, cm, 11/17/23 10:55:00 EDT, Height, 113, kg, 11/17/23 10:55:00 EDT,Dry Weight Start Date: 11/28/23 Status: Ordered zolpidem 10 mg oral tablet See Instructions, TAKE 1 TABLET BY MOUTH AT BEDTIME NEEDED 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
--- OUTSIDE RECORDS SUMMARY | 2024-03-27 15:14 | XMS_ITS | Continuity of Care Document ---
Author Organization [facility] Address [address] [place] [address]- Care Team Providers Care Streetcar Operator Name Role Phone Chata HUGHES, Yaima Reed Primary Care Physician En[place] [facility] [place] Date(s): 05/20/21 - 06/19/21 [facility] [address] [place] [address]- Allergies, Adverse Reactions, Alerts Substance Reaction Severity [...] Refills, Maintenance, 12/09/20 11:35:00 EDT, Tablet, [facility]/pharmacy #[id number], 179, cm, 11/27/20 14:03:00 EDT, Height, [...] tablet, 5 Refills, Maintenance, 02/17/21 15:40:00 EDT, [facility] # 302, 179, cm, 02/12/21 11:02:00 [...]
--- OUTSIDE RECORDS SUMMARY | 2024-03-27 15:14 | XMS_ITS | Continuity of Care Document ---
Author Organization [facility] Address [address] [place] [address]- Care Team Providers Care Amphibious Operations Officer Name Role Phone Yaima Brizuela MD Primary Care Physician [phone] Encounter [facility] Date(s): 06/17/22 - 07/17/22 [facility] [address] [place], [place] [address] Attending Physician: Jason Gonzalez Admitting Physician: AdmJason thayer Referring Physician: AdmtrJason Allergies, Adverse Reactions, Alerts Substance Reaction Severity Status terazosin DIZZINESS Active Glutens Active Xolair anaphylaxis Active Immunizations Given and Recorded Vaccine Date Status Refusal Reason [id number] 12y+ bivalent booster vax 03/26/22 Recorded SARS-CoV-2 [...] Refills, Soft Stop, 10/25/19 11:51:00 EDT, Shampoo, [facility]/pharmacy #0859, 1 application Topically [...] MOUTH AT BEDTIME NEEDED 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 [...] lifetime) entered on: 05/14/21 Sex Note * Event Display: Non BH Lab Results Authored Date: * Event Display: Non BH Lab Results Authored Date: * Event Display: Non BH Lab Results Authored Date: * Event Display: CT Scan Abdomen, Non- BH Authored Date: MR Brain * Event Display: MRI Head Authored Date: Patient Care team information Care Team Personnel Name: Yaima Brizuela MD Position: [facility] Primary Care Physician Member Role: PCP Address: Address: [address] [place] [address]- Care Team Related Persons Name: AISHA ESTEVES Address: home [address] [address] Name: CECE ESTEVES Name: CECE NUÑEZ Address: home [address] [place] [address]
--- OUTSIDE RECORDS SUMMARY | 2024-03-27 15:15 | XMS_ITS | Continuity of Care Document ---
Author Organization [facility] Address [address] [place] [address]- Care Team Providers Care Line Tender Flakeboard Name Role Phone Chata HUGHES, Yaima Reed Primary Care Physician [place] [facility] [place] [facility] [id number] Date(s): 12/16/23 - 01/15/24 [facility] [address] [place] [address]- Allergies, Adverse Reactions, Alerts Substance Reaction Severity Status terazosin DIZZINESS Active Glutens Active Xolair anaphylaxis Active Immunizations Given and Recorded Vaccine Date Status Refusal Reason SARS-CoV-2(COVID-19)mRNA-LNP vac([id number]) 03/18/23 Recorded [id number] 12y+ bivalent booster vax 03/26/22 Recorded SARS-CoV-2 (COVID-19) mRNA BNT-162b2 vac 1 06/25/21 Recorded SARS-CoV-2 (COVID-19) mRNA BNT-162b2 vac 01/03/21 Recorded SARS-CoV-2 (COVID-19) mRNA BNT-162b2 vac 12/13/20 Recorded 1Result Comment: 3rd dose Medications candesartan 4 mg oral tablet 1/2 TO 1 TABLET, By Mouth, Daily, # 90 tablet, 1 Refills, Maintenance, 03/14/23 6:44:00 EDT, [facility], 178, cm, 01/24/23 15:44:00 EDT, Height, 109.5, [...] 1 Refills, Maintenance, 08/25/22 15:57:00 EDT, Solution, [facility]/pharmacy #[id number], Partial fill upon patient request [...] 3 Refills, Maintenance, 08/03/23 13:17:00 EST, Tablet, [facility]/pharmacy #0859, Partial fill upon patient request [...] Refills, Maintenance, 11/28/23 8:27:00 EDT, [facility], 178, cm, 11/17/23 10:55:00 EDT, Height, 113, kg, 11/17/23 10:55:00 EDT,Dry Weight Start Date: 11/28/23 Status: Ordered zolpidem 10 mg oral tablet See Instructions, TAKE 1 TABLET BY MOUTH AT BEDTIME NEEDED 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
--- OUTSIDE RECORDS SUMMARY | 2024-03-27 15:15 | XMS_ITS | Continuity of Care Document ---
Author Organization [facility] Address [address] [place] [address]- Care Team Providers Care Payer Specialist Name Role Phone Chata HUGHES, Yaima Reed Primary Care Physician En[place] [facility] [place] Date(s): 09/21/23 - 09/28/23 [facility] [address] [place] [address]- Encounter Diagnosis Vertigo(Discharge Diagnosis) - 09/21/23 Attending Physician: Jessi Nelson MD, V Allergies, Adverse Reactions, Alerts Substance Reaction Severity Status terazosin DIZZINESS Active Glutens Active Xolair anaphylaxis Active Immunizations Given and Recorded Vaccine Date Status Refusal Reason SARS-CoV-2(COVID-19)mRNA-LNP vac([id number]) 03/18/23 Recorded [id number] 12y+ bivalent booster vax 03/26/22 Recorded SARS-CoV-2 (COVID-19) mRNA BNT-162b2 vac 1 06/25/21 Recorded SARS-CoV-2 (COVID-19) mRNA BNT-162b2 vac 01/03/21 Recorded SARS-CoV-2 (COVID-19) mRNA BNT-162b2 vac 12/13/20 Recorded 1Result Comment: 3rd dose Medications candesartan 4 mg oral tablet 1/2 TO 1 TABLET, By Mouth, Daily, # 90 tablet, 1 Refills, Maintenance, 03/14/23 6:44:00 EDT, [facility], 178, cm, 01/24/23 15:44:00 EDT, Height, 109.5, [...] MOUTH AT BEDTIME NEEDED 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, # 30 tablet, 5 Refills, Maintenance, 08/25/23 12:51:00 EDT, [id number], 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 ONLY PLEASE, 178, cm, 08/11/23 10:59:00 EST, [...] Diagnosis Diagnosis Type Effective Dates Health Status Clini katie Service Informant Vertigo Discharge Diagnosis 4/17/24 Vital Signs Most recent to oldest [Reference Range]: 1 Height 178 cm (09/21/23 1:17 PM) Weight 114.7 kg (09/21/23 1:17 PM) Oxygen Saturation [94-100 %] 98 % (09/21/23 1:17 PM) Pulse Rate [55-90 bpm] 88 bpm (09/21/23 1:17 PM) Body Mass Index [18.5-24.99 kg/m2] 36.2 kg/m2 *>HHI* (09/21/23 1:17 PM) Blood Pressure [90-138/55-84 mm Hg] 113/ 72mm Hg (09/21/23 1:17 PM) Mode of Delivery (Oxygen) Room air (09/21/23 1:17 PM) Blood pressure sites Arm, left (09/21/23 1:17 PM) Social History Social History Type Response Smoking Status Never (less than 100 in lifetime) entered on: 05/14/21 Sex Note * Cardinal , Ijeoma: PERFORM, SIGN, VERIFY Event Display: Patient Education/Instruction Authored Date: [id number] [facility] *[facility] Clinical Summary Name NITA ESTEVES Age 38 Years 1985 PCP Yaima Brizuela MD PCP Visit Date 09/21/2023 13:11:00 Additional Instructions: Scheduled Appointments?? Future Appointments ?*No??[facility] ?[address]??[place],??[place],??[address] ?Phone:??[phone]?Fax:??-- ?Appt. Date:??11/17/2023?11:00 AM ?Scheduled Provider:??Yaima Brizuela MD ?*[facility] ?[address] ?[place],??[place],??[address] ?Phone:??[phone]?Fax:??-- ?Appt. Date:??12/02/2023?9:00 AM ?Scheduled Provider:??Ilana Miranda MD ?*[facility] ?[address],??[place],??[address] ?Phone:??--?Fax:??-- ?Appt. Date:??12/19/2023?9:15 AM ?Scheduled Provider:??HEATHER Hendrickson Jodi M Follow-Up Instructions ?? Diagnosis Dizziness and giddiness Medications: Please continue your medications until treatment [...] tablet, extended release) Oral Daily. Next Dose: [place]-3 Polyunsaturated Fatty Acids (Fish Oil) Oral. Next Dose: Ondansetron (ondansetron 4 mg oral tablet, disintegrating) DISSOLVE 1 TABLET IN MOUTH EVERY 8 HOURSAS NEEDED FOR NAUSEA AND VOMITING (INS ONLY COVERS 1 DAILY). Next Dose: Phytonadione (Vitamin K1) 100mcg daily. 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 Refills: 5. Next Dose: Allergy Info:?? Xolair; Glutens; terazosin Medications Given This Visit Future Orders ?No future orders Future Orders ?No future orders Vital Signs Height 178 cm Weight 114.7 kg BMI 36.2 kg/m2 Blood Pressure 113 mm Hg/72 mm Hg Temperature Pulse Rate 88 bpm Respiratory Rate 02 Sat Mode of Delivery 98 %/Room air You can now view a summary of your hospital visit from the comfort of your home through a free online portal called [employer]. [employer] is a website that allows you to securely view your medical information including discharge summary, medications and follow-up visits. ??You can alsosend a secure electronic message to your doctor???s office to request appointments, renew medications or just ask a question. You can enroll at [email or web address] or register during your next office visit. [...] primary care provider, you may find a [facility] provider by calling [facility] [employer] at [phone]. [facility], in keeping with [facility] guidance, no longer requires face masks for [...] Primary Care Member Role: PCP Address: Address: [address] [place] [address]- Care Team Related Persons Name: AISHA ESTEVES Address: home [address] [facility] [address] [place] [address] Name: CECE ESTEVES Address: [place] [address] Name: CECE NUÑEZ Address: home [address] [place] [address]
--- OUTSIDE RECORDS SUMMARY | 2024-03-27 15:15 | XMS_ITS | Continuity of Care Document ---
Author Organization [facility] Address [address] [place] [address]- Care Team Providers Care Pneumatic Systems Operator Name Role Phone Yaima Brizuela MD Primary Care Physician [place] [facility] [place] Date(s): 12/02/23 - 01/01/24 [facility] [address] [place], [place] [address] Allergies, Adverse Reactions, Alerts Substance Reaction Severity Status terazosin DIZZINESS Active Glutens Active Xolair anaphylaxis Active Immunizations Given and Recorded Vaccine Date Status Refusal Reason SARS-CoV-2(COVID-19)mRNA-LNP vac([id number]) 03/18/23 Recorded [id number] 12y+ bivalent booster vax 03/26/22 Recorded SARS-CoV-2 (COVID-19) mRNA BNT-162b2 vac 1 06/25/21 Recorded SARS-CoV-2 (COVID-19) mRNA BNT-162b2 vac 01/03/21 Recorded SARS-CoV-2 (COVID-19) mRNA BNT-162b2 vac 12/13/20 Recorded 1Result Comment: 3rd dose Medications candesartan 4 mg oral tablet 1/2 TO 1 TABLET, By Mouth, Daily, # 90 tablet, 1 Refills, Maintenance, 03/14/23 6:44:00 EDT, [facility], 178, cm, 01/24/23 15:44:00 EDT, Height, 109.5, [...] 1 Refills, Maintenance, 08/25/22 15:57:00 EDT, Solution, [facility]/pharmacy #0859, Partial fill upon [...] 3 Refills, Maintenance, 08/03/23 13:17:00 EST, Tablet, [facility]/pharmacy #0859, Partial fill upon [...] Refills, Maintenance, 11/28/23 8:27:00 EDT, [facility], 178, cm, 11/17/23 10:55:00 EDT, Height, 113, kg, 11/17/23 10:55:00 EDT,Dry Weight Start Date: 11/28/23 Status: Ordered zolpidem 10 mg oral tablet See Instructions, TAKE 1 TABLET BY MOUTH AT BEDTIME NEEDED 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
--- OUTSIDE RECORDS SUMMARY | 2024-03-27 15:15 | XMS_ITS | Continuity of Care Document ---
Author Organization [facility] Address [address] [place] [address]- Care Team Providers Care Clothespin Drier Operator Name Role Phone Chata HUGHES, Yaima Reed Primary Care Physician [phone] Encounter [facility] [place] Date(s): 02/23/24 - 03/24/24 [facility] [address] [place] [address]- Allergies, Adverse Reactions, Alerts Substance Reaction Severity Status terazosin DIZZINESS Active Glutens Active Xolair anaphylaxis Active Immunizations Given and Recorded Vaccine Date Status Refusal Reason SARS-CoV-2(COVID-19)mRNA-LNP vac([id number]) 03/18/23 Recorded [id number] 12y+ bivalent booster vax 03/26/22 Recorded SARS-CoV-2 [...] Refills, Maintenance, 03/12/24 9:19:00 EDT, [facility], [id number], Partial fill upon patient request if... Start Date: 03/12/24 Status: Ordered benzonatate 200 mg oral capsule 1 capsule = 200 mg, By Mouth, 3 times a day, PRN as needed for cough, for 14 days, # 42 capsule, 3 Refills, Acute 05/19/24 15:47:00 EST, 03/24/24 15:47:00 EDT, Capsule, [facility]/pharmacy #0859, new rx please fill, 178, cm, 03/10/24 15:24:00 EDT, Height, 11... Start Date: 03/24/24 Stop Date: 05/19/24 Status: Ordered candesartan 4 mg oral tablet 1/2 TO 1 TABLET, By Mouth, Daily, # 90 tablet, 1 Refills, Maintenance, 01/18/24 16:13:00 EDT, [facility]/pharmacy #0859, 178, cm, 01/09/24 15:03:00 EDT, Height, [...] mL, 11 Refills, Maintenance, 03/19/24 10:58:00 EDT, [facility]/pharmacy #0859, Partial fill [...] 3 Refills, Maintenance, 08/03/23 13:17:00 EST, Tablet, [facility]/pharmacy #0859, Partial fill [...] Refills, Maintenance, 11/28/23 8:27:00 EDT, [facility], 178, cm, 11/17/23 10:55:00 EDT, Height, 113, kg, 11/17/23 10:55:00 EDT,Dry Weight Start Date: 11/28/23 Status: Ordered zinc sulfate 66 mg oral tablet 1 tablet = 66 mg, By Mouth, 3 times a day, # 42 tablet, 5 Refills, Maintenance, 03/14/24 16:16:00 EDT, Table[facility], [facility], Partial fill upon patient request if the prescription is for a schedule II opioid drug., 178, cm, 03/10/24 15:24:00 EDT,... 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
--- OUTSIDE RECORDS SUMMARY | 2024-03-27 15:15 | XMS_ITS | Continuity of Care Document ---
Author Organization [facility] Address [address] [place] [address]- Care Team Providers Care Merchant Mariner Name Role Phone Yaima Brizuela MD Primary Care Physician Encounter [facility] [place] Date(s): 06/15/21 - 07/15/21 [facility] [address] [place] [address]- [place] Allergies, Adverse Reactions, Alerts Substance Reaction [...] Refills, Soft Stop, 10/25/19 11:51:00 EDT, Shampoo, [facility]/pharmacy #0859, 1 application Topically Daily, [...] 3 Refills, Maintenance, 12/09/20 11:35:00 EDT, Tablet, [facility]/pharmacy #0859, 179, cm, 11/27/20 14:03:00 [...] tablet, 5 Refills, Maintenance, 02/17/21 15:40:00 EDT, [email or web address] # 302, 179, cm, 02/12/21 11:02:00 [...]
--- OUTSIDE RECORDS SUMMARY | 2024-03-27 15:15 | XMS_ITS | Continuity of Care Document ---
Author Organization [facility] Address [address] [place] [address]- Care Team Providers Care Magnetic Doctor Name Role Phone Chata HUGHES, Yaima Reed Primary Care Physician [phone] [place] [facility] [id number] Date(s): 01/17/24 - 02/16/24 [facility] [address] [place] [address]- Allergies, Adverse Reactions, Alerts Substance Reaction Severity Status terazosin DIZZINESS Active Glutens Active Xolair anaphylaxis Active Immunizations Given and Recorded Vaccine Date Status Refusal Reason SARS-CoV-2(COVID-19)mRNA-LNP vac([id number]) 03/18/23 Recorded [id number] 12y+ bivalent booster vax 03/26/22 Recorded SARS-CoV-2 [...] 1 Refills, Maintenance, 08/25/22 15:57:00 EDT, Solution, [facility]/pharmacy #0859, Partial fill upon patient [...] 3 Refills, Maintenance, 08/03/23 13:17:00 EST, Tablet, [facility]/pharmacy #0859, Partial fill upon patient [...] Refills, Maintenance, 11/28/23 8:27:00 EDT, [facility], 178, cm, 11/17/23 10:55:00 EDT, Height, 113, kg, 11/17/23 10:55:00 EDT,Dry Weight Start Date: 11/28/23 Status: Ordered zolpidem 10 mg oral tablet See Instructions, TAKE 1 TABLET BY MOUTH AT BEDTIME NEEDED 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
--- OUTSIDE RECORDS SUMMARY | 2024-03-27 15:15 | XMS_ITS | Continuity of Care Document ---
Author Organization [facility] Address [address] [place] [address]- Care Team Providers Care Shoemaker Apprentice Name Role Phone Chata HUGHES, Yaima Reed Primary Care Physician [place] [facility] [place] - 10/04/21 [facility] [address] [place] [address]- Allergies, Adverse Reactions, Alerts Substance Reaction Severity [...] Refills, Maintenance, 12/09/20 11:35:00 EDT, Tablet, [facility]/pharmacy #0859, 179, cm, 11/27/20 14:03:00 [...] 30 tablet, 5 Refills,Maintenance, 08/06/21 14:06:00 EST, [facility] # 302, 177.8, cm, 08/06/21 11:00:00 EST, Height, 116.3, kg, 07/13/21 12:56:00 EST, Dry Weight Start Date: 08/06/21 Status: Ordered zolpidem 10 mg oral tablet See Instructions, TAKE ONE TABLET BY MOUTH AT BEDTIME NEEDED 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, # 30 tablet, 5 Refills, Maintenance, 02/17/21 15:40:00 EDT, [facility] # 302, 179, cm, 02/12/21 [...]
--- OUTSIDE RECORDS SUMMARY | 2024-03-27 15:15 | XMS_ITS | Continuity of Care Document ---
Author Organization [facility] Address [address] [place] [address]- Care Team Providers Care Long Chain Quiller Tender Name Role Phone Chata HUGHES, Yaima Reed Primary Care Physician Encounter [facility] [place] Date(s): 06/16/23 - 07/16/23 [facility] [address] [place] [address]- Allergies, Adverse Reactions, Alerts Substance Reaction Severity Status terazosin DIZZINESS Active Glutens Active Xolair anaphylaxis Active Immunizations Given and Recorded Vaccine Date Status Refusal Reason SARS-CoV-2(COVID-19)mRNA-LNP vac([id number]) 03/18/23 Recorded [id number] 12y+ bivalent booster vax 03/26/22 Recorded SARS-CoV-2 (COVID-19) mRNA BNT-162b2 vac 1 06/25/21 Recorded SARS-CoV-2 (COVID-19) mRNA BNT-162b2 vac 01/03/21 Recorded SARS-CoV-2 (COVID-19) mRNA BNT-162b2 vac 12/13/20 Recorded 1Result Comment: 3rd dose Medications candesartan 4 mg oral tablet 1/2 TO 1 TABLET, By Mouth, Daily, # 90 tablet, 1 Refills, Maintenance, 03/14/23 6:44:00 EDT, [facility], 178, cm, 01/24/23 15:44:00 EDT, Height, 109.5, [...] 1 Refills, Maintenance, 08/25/22 15:57:00 EDT, Solution, [facility]/pharmacy #[id number], Partial fill upon [...] MOUTH AT BEDTIME NEEDED 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
--- OUTSIDE RECORDS SUMMARY | 2024-03-27 15:15 | XMS_ITS | Continuity of Care Document ---
Author Organization [facility] Address [address] [place] [address]- Care Team Providers Care Machine Stamper Name Role Phone Yaima Brizuela MD Primary Care Physician Encounter [facility] [place] Date(s): 05/06/23 - 06/05/23 [facility] [address] [place], [place] [address] Allergies, Adverse Reactions, Alerts Substance Reaction Severity Status terazosin DIZZINESS Active Glutens Active Xolair anaphylaxis Active Immunizations Given and Recorded Vaccine Date Status Refusal Reason SARS-CoV-2(COVID-19)mRNA-LNP vac([id number]) 03/18/23 Recorded [id number] 12y+ bivalent booster vax 03/26/22 Recorded SARS-CoV-2 [...] Refills, Maintenance, 03/14/23 6:44:00 EDT, [facility], 178, cm, 01/24/23 15:44:00 EDT, Height, 109.5, [...] 1 Refills, Maintenance, 08/25/22 15:57:00 EDT, Solution, [facility]/pharmacy #[id number], Partial fill upon patient request [...] MOUTH AT BEDTIME NEEDED 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 Physician - Primary Care Member Role: PCP Address: Address: [address] [place] [address]- Care Team Related Persons Name: AISHA ESTEVES Address: home [address] [place] [address] Name: CECE ESTEVES Address: [place] [address] Name: CECE NUÑEZ Address: home [address] [place] [address]
--- OUTSIDE RECORDS SUMMARY | 2024-03-27 15:15 | XMS_ITS | Continuity of Care Document ---
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 Sacroiliac joint pain(Discharge Diagnosis) - 09/19/20 Attending Physician: Yaima Brizuela MD Allergies, Adverse [...] 56 tablet, 0 Refills, Acute, 08/20/20 8:36:00EDT, [facility] STORE 30478, 179, cm, 07/18/20 14:54:00 EST, Height, 113.6, [...] 3 Refills, Maintenance, 10/10/19 11:17:00 EDT, Tablet, [facility]/pharmacy #[id number], 113.6, kg, 01/22/19 15:29:00 EDT, [...] Acute 11/20/20 15:45:00 EDT, 11/21/19 15:42:00 EDT, [email or web address] # 302, 113.6, kg, 01/22/19 15:29:00 EDT, Dry Weight Start Date: 11/21/19 Stop Date: 11/20/20 Status: Ordered zolpidem 10 mg oral tablet See Instructions, TAKE ONE TABLET BY MOUTH AT BEDTIME NEEDED 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, # 30 tablet, 5 Refills, Maintenance, 07/25/20 12:12:00 EST, [facility] # 302, 179, cm, 07/18/20 14:54:00 EST, Height, 113.6, kg, 01/22/19 15:29:00 EDT, Dry Weight Start Date: 07/25/20 Status: Ordered zolpidem 10 mg oral tablet See Instructions, TAKE ONE TABLET BY MOUTH AT BEDTIME NEEDED 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, # 30 tablet, 5 Refills, Maintenance, 07/24/20 13:33:00 EST, [facility]/pharmacy #[id number], 179, cm, 07/18/20 14:54:00 EST, [...] Clinical Service Informant Amos-Danlos syndrome Discharge Diagnosis 09/19/20 Sacroiliac joint pain Discharge Diagnosis 09/19/20
--- OUTSIDE RECORDS SUMMARY | 2024-03-27 15:15 | XMS_ITS | Continuity of Care Document ---
Author Organization [facility] Address [address] [place] [address]- Care Team Providers Care Nuclear Medicine Pet Ct Technologist Name Role Phone Yaima Brizuela MD Primary Care Physician Encounter [facility] [place] Date(s): 12/01/23 - 12/31/23 [facility] [address] [place], [place] [address] Allergies, Adverse Reactions, Alerts Substance Reaction Severity Status terazosin DIZZINESS Active Glutens Active Xolair anaphylaxis Active Immunizations Given and Recorded Vaccine Date Status Refusal Reason SARS-CoV-2(COVID-19)mRNA-LNP vac([id number]) 03/18/23 Recorded [id number] 12y+ bivalent booster vax 03/26/22 Recorded SARS-CoV-2 (COVID-19) mRNA BNT-162b2 vac 1 06/25/21 Recorded SARS-CoV-2 (COVID-19) mRNA BNT-162b2 vac 01/03/21 Recorded SARS-CoV-2 (COVID-19) mRNA BNT-162b2 vac 12/13/20 Recorded 1Result Comment: 3rd dose Medications candesartan 4 mg oral tablet 1/2 TO 1 TABLET, By Mouth, Daily, # 90 tablet, 1 Refills, Maintenance, 03/14/23 6:44:00 EDT, [facility], 178, cm, 01/24/23 15:44:00 EDT, Height, 109.5, [...] Refills, Maintenance, 08/25/22 15:57:00 EDT, Solution, [facility]/pharmacy #[id number], Partial fill upon [...] 3 Refills, Maintenance, 08/03/23 13:17:00 EST, Tablet, [facility]/pharmacy #[id number], Partial [...] Refills, Maintenance, 11/28/23 8:27:00 EDT, [facility], 178, cm, 11/17/23 10:55:00 EDT, Height, 113, kg, 11/17/23 10:55:00 EDT,Dry Weight Start Date: 11/28/23 Status: Ordered zolpidem 10 mg oral tablet See Instructions, TAKE 1 TABLET BY MOUTH AT BEDTIME NEEDED 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
--- OUTSIDE RECORDS SUMMARY | 2024-03-27 15:15 | XMS_ITS | Continuity of Care Document ---
Author Organization [facility] Address [address] [place] [address]- Care Team Providers Care Tubing Mill Operator Name Role Phone Yaima Brizuela MD Primary Care Physician [phone] [facility] [id number] Date(s): 12/23/20 - 01/22/21 [facility] [address] [place], [place] [address] Attending Physician: Admflaca, Jason Admitting Physician: Admtr, Jason Referring Physician: Admtr, Ar8 Allergies, Adverse Reactions, [...] 0 Refills, Maintenance, 10/07/20 8:17:00 EDT, Tablet, [facility]/pharmacy #[id number], Partial fill upon patient request [...] 0 Refills, Acute, 08/20/20 8:36:00EDT, [facility], 179, cm, 07/18/20 14:54:00 EST, Height, 113.6, [...] Soft Stop, 10/25/19 11:51:00 EDT, Shampoo, [facility]/pharmacy #0859, 1 application Topically Daily, 113.6, [...] 12:22:00 EDT, 05/06/20 12:22:00 [facility], [facility] # 302, 1 tablet... [...] Refills, Maintenance, 12/09/20 11:35:00 EDT, Tablet, [facility]/pharmacy #0859, 179, cm, 11/27/20 14:03:00 EDT, Height, 121.1, kg, 10/22/20 14:46:00 EDT, Dry Weight Start Date: 12/09/20 Status: Ordered rizatriptan 5 mg oral tablet 1 tablet = 5 mg, By Mouth, Daily, PRN for migraine headache, may repeat dose every 2 hours up to a maximum of 3, # 30 tablet, 5 Refills, Maintenance, 10/09/20 16:46:00 EDT, Tablet, [facility]/pharmacy #0859, Partial fill upon patient request [...] tablet, 5 Refills, Maintenance, 07/25/20 12:12:00 EST, [facility] # [facility], 179, cm, 07/18/20 14:54:00 EST, Height, 113.6, kg, 01/22/19 15:29:00 EDT, Dry Weight Start Date: 07/25/20 Status: Ordered zolpidem 10 mg oral tablet See Instructions, TAKE ONE TABLET BY MOUTH AT BEDTIME NEEDED 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, # 30 tablet, 5 Refills, Maintenance, 07/24/20 13:33:00 EST, [facility]/pharmacy #0859, 179, cm, 07/18/20 14:54:00 EST, [...]
--- OUTSIDE RECORDS SUMMARY | 2024-03-27 15:15 | XMS_ITS | Continuity of Care Document ---
Author Organization [facility] Address [address] [place] [address]- Care Team Providers Care Education Program Coordinator Name Role Phone Chata HUGHES, Yaima Reed Primary Care Physician [phone] Encounter [facility] [place] Date(s): 05/18/21 - 06/17/21 [facility] [address] [place] [address]- Allergies, Adverse Reactions, Alerts Substance Reaction Severity [...] 3 Refills, Maintenance, 12/09/20 11:35:00 EDT, Tablet, [facility]/pharmacy #[id number], 179, cm, 11/27/20 14:03:00 [...] tablet, 5 Refills, Maintenance, 02/17/21 15:40:00 EDT, [facility] # 302, 179, cm, 02/12/21 11:02:00 [...]
--- OUTSIDE RECORDS SUMMARY | 2024-03-27 15:15 | XMS_ITS | Continuity of Care Document ---
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 Sacroiliac joint pain(Discharge Diagnosis) - 04/07/20 Attending Physician: Yaima Brizuela MD Allergies, Adverse [...] Acute 11/20/20 15:45:00 EDT, 11/21/19 15:42:00 EDT, [facility] # 302, 113.6, kg, [...] Status Clinical Service Informant Endometriosis Discharge Diagnosis 04/07/20 Tommy's thyroiditis Discharge Diagnosis 04/07/20 Sacroiliac joint pain Discharge Diagnosis 04/07/20 Vital Signs Most recent to oldest [Reference Range]: 1 Height 179 cm (04/07/20 11:01 AM) Weight 118.8 kg (04/07/20 11:01 AM) Oxygen Saturation [94-100 %] 98 % (04/07/20 11:01 AM) Pulse Rate [55-90 bpm] 98 bpm *H* (04/07/20 11:01 AM) Body Mass Index [18.5-24.99] 37.08 *>HHI* (04/07/20 11:01 AM) Blood Pressure [90-138/55-84 mm Hg] 122/ 74mm Hg (04/07/20 11:01 AM) Temperature [96.8-100.4 DegF] 98.3 DegF (04/07/20 11:01 AM) Mode of Delivery (Oxygen) Room air (04/07/20 11:01 AM) Blood pressure sites Arm, left (04/07/20 11:01 AM) Temperature Route Temporal (04/07/20 11:01 AM) Weight Obtained Via Standing scale (04/07/20 11:01 AM)
--- OUTSIDE RECORDS SUMMARY | 2024-03-27 15:15 | XMS_ITS | Continuity of Care Document ---
Author Organization [facility] Address [address] [place] [address]- Care Team Providers Care Banking Paralegal Name Role Phone Chata HUGHES, Yaima Reed Primary Care Physician [phone] Encounter [facility] Date(s): 10/02/20 - 11/01/20 [facility] [address] [place], [place] [address] Allergies, Adverse [...] 0 Refills, Acute, 08/20/20 8:36:00EDT, [facility], 179, cm, 07/18/20 14:54:00 EST, Height, 113.6, [...] EDT, 10/22/20 18:24:00 EDT, ER Tablet, [facility]/pharmacy #[id number], Partial [...] Stop 03/02/21 12:22:00 EDT, 05/06/20 12:22:00 EST, [facility] # 302, 1 tablet... Start [...] Refills, Maintenance, 10/09/20 16:46:00 EDT, Tablet, [facility]/pharmacy #0859, Partial [...] Acute 11/20/20 15:45:00 EDT, 11/21/19 15:42:00 EDT, [facility] # 302, 113.6, kg, 01/22/19 15:29:00 EDT, Dry Weight Start Date: 11/21/19 Stop Date: 11/20/20 Status: Ordered zolpidem 10 mg oral tablet See Instructions, TAKE ONE TABLET BY MOUTH AT BEDTIME NEEDED 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, # 30 tablet, 5 Refills, Maintenance, 07/25/20 12:12:00 EST, [facility] # 302, 179, cm, 07/18/20 14:54:00 EST, Height, 113.6, kg, 01/22/19 15:29:00 EDT, Dry Weight Start Date: 07/25/20 Status: Ordered zolpidem 10 mg oral tablet See Instructions, TAKE ONE TABLET BY MOUTH AT BEDTIME NEEDED 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, # 30 tablet, 5 Refills, Maintenance, 07/24/20 13:33:00 EST, [facility]/pharmacy #[id number], 179, cm, 07/18/20 14:54:00 [...]
--- OUTSIDE RECORDS SUMMARY | 2024-03-27 15:15 | XMS_ITS | Continuity of Care Document ---
Author Organization [facility] Address [address] [place] [address]- Care Team Providers Care Marketing Proposal Specialist Name Role Phone Yaima Brizuela MD Primary Care Physician Encounter [facility] [place] Date(s): 07/31/20 - 08/30/20 [facility] [address] [place], [place] [address] Allergies, Adverse Reactions, Alerts Substance Reaction [...] tablet, 0 Refills, Acute, 08/20/20 8:36:00EDT, [facility] STORE 09850, 179, cm, 07/18/20 14:54:00 EST, Height, 113.6, [...] 10/25/19 11:51:00 EDT, Shampoo, [facility]/pharmacy #0859, 1 application Topically Daily, 113.6, [...] Stop 03/02/21 12:22:00 EDT, 05/06/20 12:22:00 EST, [facility] # 302, 1 [...] Refills, Maintenance, 10/10/19 11:17:00 EDT, Tablet, [facility]/pharmacy #0859, 113.6, kg, 01/22/19 15:29:00 EDT, [...] Acute 11/20/20 15:45:00 EDT, 11/21/19 15:42:00 EDT, [facility] # 302, 113.6, kg, 01/22/19 15:29:00 EDT, Dry Weight Start Date: 11/21/19 Stop Date: 11/20/20 Status: Ordered zolpidem 10 mg oral tablet See Instructions, TAKE ONE TABLET BY MOUTH AT BEDTIME NEEDED 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, # 30 tablet, 5 Refills, Maintenance, 07/25/20 12:12:00 EST, [facility] # 302, 179, cm, 07/18/20 14:54:00 EST, Height, 113.6, kg, 01/22/19 15:29:00 EDT, Dry Weight Start Date: 07/25/20 Status: Ordered zolpidem 10 mg oral tablet See Instructions, TAKE ONE TABLET BY MOUTH AT BEDTIME NEEDED 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, # 30 tablet, 5 Refills, Maintenance, 07/24/20 13:33:00 EST, [facility]/pharmacy #0859, 179, cm, 07/18/20 14:54:00 EST, [...]
--- OUTSIDE RECORDS SUMMARY | 2024-03-27 15:15 | XMS_ITS | Continuity of Care Document ---
Author Organization [facility] Address [address] [place] [address]- Care Team Providers Care Pipe Line Maintenance Supervisor Name Role Phone Yaima Brizuela MD Primary Care Physician [phone] Encounter [facility] [place] Date(s): 04/25/23 - 05/02/23 [facility] [address] [place], [place] [address] Attending Physician: Yaima Brizuela MD Allergies, Adverse Reactions, Alerts Substance Reaction Severity Status terazosin DIZZINESS Active Glutens Active Xolair anaphylaxis Active Immunizations Given and Recorded Vaccine Date Status Refusal Reason SARS-CoV-2(COVID-19)mRNA-LNP vac([id number]) 03/18/23 Recorded [id number] 12y+ bivalent booster vax 03/26/22 Recorded SARS-CoV-2 [...] Refills, Maintenance, 03/14/23 6:44:00 EDT, [facility], 178, cm, 01/24/23 15:44:00 EDT, Height, 109.5, [...] Maintenance, 08/25/22 15:57:00 EDT, Solution, 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, # 30 tablet, 5 Refills, Maintenance, 02/22/23 13:51:00 EDT, [id number], AURABINDO TREE CLIMBER ONLY PLEASE, 178, cm, 01/24/23 15:44:00 EDT, [...] oldest [Reference Range]: 1 Height 178 cm (04/25/23 11:06 AM) Weight 111.9 kg (04/25/23 11:06 AM) Oxygen Saturation [94-100 %] 99 % (04/25/23 11:06 AM) Pulse Rate [55-90 bpm] 84 bpm (04/25/23 11:06 AM) Body Mass Index [18.5-24.99 kg/m2] 35.32 kg/m2 *>HHI* (04/25/23 11:06 AM) Blood Pressure [90-138/55-84 mm Hg] 132/ 74mm Hg (04/25/23 11:06 AM) Mode of Delivery (Oxygen) Room air (04/25/23 11:06 AM) Blood pressure sites Arm, left (04/25/23 11:06 AM) Social History Social History Type Response Smoking Status Never (less than 100 in lifetime) entered on: 05/14/21 Sex Note * Alyson Mcmahan: PERFORM, SIGN, VERIFY Event Display: Patient Education/Instruction Authored Date: [id number] [facility] *[facility] Adult [facility] Clinical Summary Name NITA ESTEVES Age 38 Years 1985 PCP Yaima Brizuela MD PCP Visit Date 04/25/2023 10:45:00 Additional Instructions: Scheduled Appointments?? Future Appointments ?*[facility] ?[address]??[place],??[place],??[address] ?Phone:??--?Fax:??-- ?Appt. Date:??05/20/2023?9:40 AM ?Scheduled Provider:??Pamela HUGHES, Jay Jay Carrington ?*[facility] [address],??[place],??[address] ?Phone:??--?Fax:??-- ?Appt. Date:??06/13/2023?9:15 AM ?Scheduled Provider:??HEATHER Hendrickson , Brianna Benedict Follow-Up Instructions ?? Diagnosis Medications: Please continue [...] mg oral tablet) 1 tab(s). Next Dose: Benzonatate (Tessalon Perles) 100 Milligram [...] Nares, Both Daily. Refills: 5. Next Dose: Cyanocobalamin (Vitamin B12) 5,000 Microgram. [...] MOUTH AT BEDTIME NEEDED 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 AURABINDO TREE CLIMBER. Refills: 5. Next Dose: Allergy Info:?? Xolair; Glutens; terazosin Medications Given This Visit Future Orders ?Comprehensive Metabolic Panel? Order Date:04/25/23?- Complete on or after?04/25/23 ?TSH? Order Date:04/25/23?- Complete on or after?04/25/23 ?T3 Total? Order Date:04/25/23?- Complete on or after?04/25/23 ?T3 Free? Order Date:04/25/23?- Complete on or after?04/25/23 ?Free T4? Order Date:04/25/23?- Complete on or after?04/25/23 Vital Signs Height 178 cm Weight 111.9 kg BMI 35.32 kg/m2 Blood Pressure 132 mm Hg/74 mm Hg Temperature Pulse Rate 84 bpm Respiratory Rate 02 Sat Mode of Delivery 99 %/Room air You can now view a summary of your hospital visit from the comfort of your home through a free online portal called [employer] is a website that allows you to securely view your medical information including discharge summary, medications and follow-up visits. ??You can alsosend a secure electronic message to your doctor???s office to request appointments, renew medications or just ask a question. You can enroll at [email or web address] or register during your next office visit. [...] care provider, you may find a [facility] provider by calling [facility] Link at [phone]. [facility], in keeping with [facility] guidance, no longer requires face [...] Team Personnel Name: Yaima Brizuela MD Position: [facility] Physician - Primary Care Member Role: PCP Address: Address: [address] [place] [address]- [place] Care Team Related Persons Name: AISHA ESTEVES Address: home [address] [address] Name: CECE ESTEVES Address: [place] [address] Name: CECE NUÑEZ Address: home [address] [place] [address]
--- OUTSIDE RECORDS SUMMARY | 2024-03-27 15:16 | XMS_ITS | Continuity of Care Document ---
Author Organization [facility] Address [address] [place] [address]- Care Team Providers Care Job Placement Officer Name Role Phone Yaima Brizuela MD Primary Care Physician [phone] Encounter [facility] Date(s): 11/20/21 - 12/20/21 [facility] [address] [place] [email or web address] Attending Physician: Jason Gonzalez Admitting Physician: Jason [...] Refills, Soft Stop, 10/25/19 11:51:00 EDT, Shampoo, [facility]/pharmacy #0859, 1 application Topically [...] MOUTH AT BEDTIME NEEDED FOR INSOMNIA 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 Start [...]
--- OUTSIDE RECORDS SUMMARY | 2024-03-27 15:16 | XMS_ITS | Continuity of Care Document ---
Author Organization [facility][1] [facility] Address [address] [place] [address]- Care Team Providers Care Falafel Cart Cook Name Role Phone Chata HUGHES, Yaima Reed Primary Care Physician [place] [facility] [place]s): 12/15/22 - 01/14/23 [facility][1[facility] [address] [place] [address]- Allergies, Adverse Reactions, Alerts Substance Reaction Severity Status terazosin DIZZINESS Active Glutens Active Xolair anaphylaxis Active Immunizations Given and Recorded Vaccine Date Status Refusal Reason [id number] 12y+ bivalent booster vax 03/26/22 Recorded SARS-CoV-2 [...] Refills, Maintenance, 11/10/22 15:49:00 EDT, [id number], Partial fill upon patient request if the [...] MOUTH AT BEDTIME NEEDED FOR INSOMNIA 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 [...] Team Personnel Name: Yaima Brizuela MD Position: [facility] Physician - Primary Care Member Role: PCP Address: Address: [address] [place] [address]- Care Team Related Persons Name: AISHA ESTEVES Address: home [address] [address] Name: CECE ESTEVES Address: [place] [address] Name: CECE NUÑEZ Address: home [address] [place] [address]
--- OUTSIDE RECORDS SUMMARY | 2024-03-27 15:16 | XMS_ITS | Continuity of Care Document ---
Author Organization [facility] Address [address] [place] [address]- Care Team Providers Care Bisque Kiln Placer Name Role Phone Yaima Brizuela MD Primary Care Physician [phone] En[place] [facility] [place] Date(s): 03/06/21 - 04/05/21 [facility] [address] [place], [place] [address] Allergies, Adverse Reactions, Alerts [...] 56 tablet, 0 Refills, Acute, 08/20/20 8:36:00EDT, [facility] 01276, 179, cm, 07/18/20 14:54:00 EST, Height, 113.6, [...] Refills, Soft Stop, 10/25/19 11:51:00 EDT, Shampoo, [facility]/pharmacy #[id number], 1 application Topically Daily, 113.6, [...] 3 Refills, Maintenance, 12/09/20 11:35:00 EDT, Tablet, [facility]/pharmacy #0859, 179, cm, 11/27/20 14:03:00 EDT, [...] tablet, 5 Refills, Maintenance, 07/24/20 13:33:00 EST, [facility]/pharmacy #0859, 179, cm, 07/18/20 14:54:00 EST, [...] tablet, 5 Refills, Maintenance, 02/17/21 15:40:00 EDT, [facility] # 302, 179, cm, 02/12/21 11:02:00 [...]
--- OUTSIDE RECORDS SUMMARY | 2024-03-27 15:16 | XMS_ITS | Continuity of Care Document ---
Author Organization [facility] Address [address] [place] [address]- Care Team Providers Care Commis Chef Name Role Phone Yaima Brizuela MD Primary Care Physician [phone] En[place] [facility] [place] Date(s): 05/21/21 - 06/20/21 [facility] [address] [place] [address] [place] Allergies, Adverse Reactions, Alerts Substance Reaction [...] Refills, Soft Stop, 10/25/19 11:51:00 EDT, Shampoo, [facility]/pharmacy #0859, 1 application Topically Daily, 113.6, kg, [...] 3 Refills, Maintenance, 12/09/20 11:35:00 EDT, Tablet, [facility]/pharmacy #0859, 179, cm, 11/27/20 14:03:00 EDT, Height, [...] tablet, 5 Refills, Maintenance, 02/17/21 15:40:00 EDT, [facility] # 302, 179, cm, 02/12/21 11:02:00 [...]
--- OUTSIDE RECORDS SUMMARY | 2024-03-27 15:16 | XMS_ITS | Continuity of Care Document ---
Author Organization [facility] Address [address] [place] [address]- Care Team Providers Care Business Machine Operator Name Role Phone Chata HUGHES, Yaima Reed Primary Care Physician Encounter [facility] Date(s): 09/30/21 - 10/30/21 [facility] [address] [place] [address]- Allergies, Adverse Reactions, Alerts Substance Reaction Severity [...] Stop, 10/25/19 11:51:00 EDT, Shampoo, [facility]/pharmacy #0859, 1 application Topically [...] Maintenance, 12/09/20 11:35:00 EDT, Tablet, [facility]/pharmacy #0859, 179, cm, 11/27/20 [...] 30 tablet, 5 Refills,Maintenance, 08/06/21 14:06:00 EST, [facility] # 302, 177.8, cm, 08/06/21 11:00:00 EST, Height, 116.3, kg, 07/13/21 12:56:00 EST, Dry Weight Start Date: 08/06/21 Status: Ordered zolpidem 10 mg oral tablet See Instructions, TAKE ONE TABLET BY MOUTH AT BEDTIME NEEDED FOR INSOMNIA, # 30 tablet, 5 Refills, Maintenance, 02/17/21 15:40:00 EDT, [facility] # 302, 179, cm, 02/12/21 11:02:00 [...]
--- OUTSIDE RECORDS SUMMARY | 2024-03-27 15:16 | XMS_ITS | Continuity of Care Document ---
Author Organization [facility] Address [address] [place] [address]- Care Team Providers Care Market Risk Analyst Name Role Phone Yaima Brizuela MD Primary Care Physician [place] [facility] [place] Date(s): 07/25/20 - 08/24/[address] [address] Attending Physician: Admtr, Ar8 Admitting Physician: Admtr, Ar8 Referring Physician: Admtr, Ar8 Allergies, Adverse Reactions, [...] 56 tablet, 0 Refills, Acute, 08/20/20 8:36:00EDT, [facility] 12055, 179, cm, 07/18/20 14:54:00 EST, Height, 113.6, [...] Refills, Soft Stop, 10/25/19 11:51:00 EDT, Shampoo, [facility]/pharmacy #0859, 1 application Topically [...] 12:22:00 EDT, 05/06/20 12:22:00 EST, [facility] # [...] 3 Refills, Maintenance, 10/10/19 11:17:00 EDT, Tablet, [facility]/pharmacy #0859, 113.6, kg, 01/22/19 [...] Acute 11/20/20 15:45:00 EDT, 11/21/19 15:42:00 EDT, [facility] # 302, 113.6, kg, 01/22/19 15:29:00 EDT, Dry Weight Start Date: 11/21/19 Stop Date: 11/20/20 Status: Ordered zolpidem 10 mg oral tablet See Instructions, TAKE ONE TABLET BY MOUTH AT BEDTIME NEEDED FOR INSOMNIA, # 30 tablet, 5 Refills, Maintenance, 07/25/20 12:12:00 EST, [facility] # [facility], 179, cm, 07/18/20 14:54:00 EST, Height, 113.6, kg, 01/22/19 15:29:00 EDT, Dry Weight Start Date: 07/25/20 Status: Ordered zolpidem 10 mg oral tablet See Instructions, TAKE ONE TABLET BY MOUTH AT BEDTIME NEEDED FOR INSOMNIA, # 30 tablet, 5 Refills, Maintenance, 07/24/20 13:33:00 EST, [facility]/pharmacy #0859, 179, cm, 07/18/20 14:54:00 EST, Height, 113.6, kg, 01/22/19 15:29:00 EDT, Dry Weight Start Date: 2/18/21 Status: Ordered ZyrTEC 10 mg oral tablet [...]
--- OUTSIDE RECORDS SUMMARY | 2024-03-27 15:16 | XMS_ITS | Continuity of Care Document ---
Author Organization [facility] Address [address] [place] [address]- Care Team Providers Care Environmental Science Technician Name Role Phone Yaima Brizuela MD Primary Care Physician [phone] Encounter [facility] [place] Date(s): 09/24/19 - 10/01/19 [facility] [address] [place] [address]- [facility] Encounter Diagnosis Insomnia(Discharge Diagnosis) - 09/24/19 Acne(Discharge Diagnosis) - 09/24/19 Abdominal discomfort(Discharge Diagnosis) - 09/24/19 Endometriosis(Discharge Diagnosis) - 09/24/19 Asthma(Discharge Diagnosis) - 09/24/19 Attending Physician: Yaima Brizuela MD Allergies, Adverse [...] 11/23/19 15:01:00 EDT, 09/24/19 15:01:00 EDT, Tablet, [facility]/pharmacy #0859, 1 tablet By Mouth [...] Daily, # 100 tablet, 0 Refills, Maintenance, 09/24/19 14:55:00 EDT, Tablet, [facility]/pharmacy #0859, 113.6, kg, 01/22/19 15:29:00 EDT, Dry Weight Start Date: 09/24/19 Status: Ordered Vitamin B12 = 5,000 mcg, [...] Effective Dates Health Status Clinical Service Informant Insomnia Discharge Diagnosis 09/24/19 Acne Discharge Diagnosis 09/24/19 Abdominal discomfort Discharge Diagnosis 09/24/19 Endometriosis Discharge Diagnosis 09/24/19 Asthma Discharge Diagnosis 09/24/19
--- OUTSIDE RECORDS SUMMARY | 2024-03-27 15:16 | XMS_ITS | Continuity of Care Document ---
Author Organization [facility] Address [address] [place] [address]- Care Team Providers Care [place] Leverman Name Role Phone Yaima Brizuela MD Primary Care Physician En[place] [facility] [place] Date(s): 01/14/21 - 02/13/21 [facility] [address] [place], [place] [address] Allergies, Adverse [...] 56 tablet, 0 Refills, Acute, 08/20/20 8:36:00EDT, [facility] 11725, 179, cm, 07/18/20 14:54:00 EST, Height, 113.6, [...] Soft Stop, 10/25/19 11:51:00 EDT, Shampoo, [facility]/pharmacy #0859, 1 application Topically Daily, 113.6, kg, [...] Physician Stop 03/02/21 12:22:00 EDT, 05/06/20 12:22:00 [facility], [facility] # 302, [...] Refills, Maintenance, 12/09/20 11:35:00 EDT, Tablet, [facility]/pharmacy #0859, 179, cm, 11/27/20 14:03:00 EDT, Height, 121.1, kg, 10/22/20 14:46:00 EDT, Dry Weight Start Date: 12/09/20 Status: Ordered rizatriptan 5 mg oral tablet 1 tablet = 5 mg, By Mouth, Daily, PRN for migraine headache, may repeat dose every 2 hours up to a maximum of 3, # 30 tablet, 5 Refills, Maintenance, 10/09/20 16:46:00 EDT, Tablet, [facility]/pharmacy #0859, Partial fill upon [...] tablet, 5 Refills, Maintenance, 07/25/20 12:12:00 EST, [facility] # [facility], 179, cm, 07/18/20 14:54:00 [...]
--- OUTSIDE RECORDS SUMMARY | 2024-03-27 15:16 | XMS_ITS | Continuity of Care Document ---
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 Start [...]
--- OUTSIDE RECORDS SUMMARY | 2024-03-27 15:16 | XMS_ITS | Continuity of Care Document ---
Author Organization [facility] Address [address] [place] [address]- Care Team Providers Care Stock Car Driver Name Role Phone Chata HUGHES, Yaima Reed Primary Care Physician Encounter [facility] Date(s): 09/26/20 - 10/26/20 [facility] [address] [place], [place] [address] Attending Physician: Jason Gonzalez Admitting Physician: [...] 0 Refills, Maintenance, 10/07/20 8:17:00 EDT, Tablet, [facility]/pharmacy #0859, Partial fill upon [...] 0 Refills, Acute, 08/20/20 8:36:00EDT, [facility], 179, cm, 07/18/20 14:54:00 EST, Height, 113.6, [...] 18:24:00 EDT, 10/22/20 18:24:00 EDT, ER Tablet, [facility]/pharmacy #0859, Partial fill upon patient request if the prescription is for a schedule I... Start Date: 10/22/20 Stop Date: 11/11/20 Status: Ordered ipratropium nasal 21 mcg/inh spray 0 Refills, Maintenance, 06/01/19 12:48:00 EST Start Date: 06/01/19 Status: Ordered ketoconazole 2% topical shampoo 1 application, Topically, Daily, # 120 mL, 0 Refills, Soft Stop, 10/25/19 11:51:00 EDT, Shampoo, [facility]/pharmacy #0859, 1 application Topically [...] 3 Refills, Maintenance, 10/10/19 11:17:00 EDT, Tablet, [facility]/pharmacy #0859, 113.6, kg, 01/22/19 15:29:00 EDT, Dry Weight Start Date: 10/10/19 Status: Ordered rizatriptan 5 mg oral tablet 1 tablet = 5 mg, By Mouth, Daily, PRN for migraine headache, may repeat dose every 2 hours up to a maximum of 3, # 30 tablet, 5 Refills, Maintenance, 10/09/20 16:46:00 EDT, Tablet, [facility]/pharmacy #0859, Partial fill upon [...] Refills, Maintenance, 06/29/19 11:50:00 EST Start Date: 1/24/20 Status: Ordered zolpidem 10 mg oral tablet See Instructions, TAKE ONE TABLET BY MOUTH ONCE DAILY AT BEDTIME NEEDED FOR INSOMNIA, # 30 tablet, 3 Refills, Acute 11/20/20 15:45:00 EDT, 11/21/19 15:42:00 EDT, [facility] # 302, 113.6, kg, 01/22/19 15:29:00 EDT, Dry Weight Start Date: 11/21/19 Stop Date: 11/20/20 Status: Ordered zolpidem 10 mg oral tablet See Instructions, TAKE ONE TABLET BY MOUTH AT BEDTIME NEEDED FOR INSOMNIA, # 30 tablet, 5 Refills, Maintenance, 07/25/20 12:12:00 EST, [facility], 179, cm, 07/18/20 14:54:00 EST, Height, 113.6, kg, 01/22/19 15:29:00 EDT, Dry Weight Start Date: 07/25/20 Status: Ordered zolpidem 10 mg oral tablet See Instructions, TAKE ONE TABLET BY MOUTH AT BEDTIME NEEDED FOR INSOMNIA, # 30 tablet, 5 Refills, Maintenance, 07/24/20 13:33:00 EST, [facility]/pharmacy #0859, 179, cm, 07/18/20 [...]
--- OUTSIDE RECORDS SUMMARY | 2024-03-27 15:16 | XMS_ITS | Continuity of Care Document ---
Author Organization [facility] Address [address] [place] [address]- Care Team Providers Care Director Of Entertainment Name Role Phone Yaima Brizuela MD Primary Care Physician [phone] Encounter [facility] [place] Date(s): 07/13/21 - 08/12/21 [facility] [address] [place], [place] [address] Allergies, Adverse Reactions, Alerts [...] Refills, Soft Stop, 10/25/19 11:51:00 EDT, Shampoo, [facility]/pharmacy #0859, 1 application Topically [...] 3 Refills, Maintenance, 12/09/20 11:35:00 EDT, Tablet, [facility]/pharmacy #0859, 179, cm, 11/27/20 14:03:00 [...] 30 tablet, 5 Refills,Maintenance, 08/06/21 14:06:00 EST, [facility] # 302, 177.8, cm, 08/06/21 11:00:00 EST, Height, 116.3, kg, 07/13/21 12:56:00 EST, Dry Weight Start Date: 08/06/21 Status: Ordered zolpidem 10 mg oral tablet See Instructions, TAKE ONE TABLET BY MOUTH AT BEDTIME NEEDED FOR INSOMNIA, # 30 tablet, 5 Refills, Maintenance, 02/17/21 15:40:00 EDT, [facility] # 302, 179, cm, 02/12/21 11:02:00 [...]
--- OUTSIDE RECORDS SUMMARY | 2024-03-27 15:16 | XMS_ITS | Continuity of Care Document ---
Author Organization [facility] Address [address] [place] [address]- Care Team Providers Care Key Carrier Name Role Phone Chata HUGHES, Yaima Reed Primary Care Physician [phone] Encounter [facility] [id number] Date(s): 12/27/23 - 01/26/24 [facility] [address] [place] [address]- Allergies, Adverse Reactions, Alerts Substance Reaction Severity Status terazosin DIZZINESS Active Glutens Active Xolair anaphylaxis Active Immunizations Given and Recorded Vaccine Date Status Refusal Reason SARS-CoV-2(COVID-19)mRNA-LNP vac([id number]) 03/18/23 Recorded [id number] 12y+ bivalent booster vax 03/26/22 Recorded SARS-CoV-2 [...] Refills, Maintenance, 08/25/22 15:57:00 EDT, Solution, [facility]/pharmacy #0859, Partial fill upon patient [...] Refills, Maintenance, 08/03/23 13:17:00 EST, Tablet, [facility]/pharmacy #0859, Partial fill upon patient [...] Refills, Maintenance, 11/28/23 8:27:00 EDT, [facility], 178, cm, 11/17/23 10:55:00 EDT, Height, 113, kg, 11/17/23 10:55:00 EDT,Dry Weight Start Date: 11/28/23 Status: Ordered zolpidem 10 mg oral tablet See Instructions, TAKE 1 TABLET BY MOUTH AT BEDTIME NEEDED FOR INSOMNIA 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
--- OUTSIDE RECORDS SUMMARY | 2024-03-27 15:16 | XMS_ITS | Continuity of Care Document ---
Author Organization [facility] Address [address] [place] [address]- Care Team Providers Care Desktop Engineer Name Role Phone Yaima Brizuela MD Primary Care Physician [phone] [place] [facility] [place] Date(s): 11/30/22 - 12/30/22 [facility] [address] [place], [place] [email or web address] Allergies, Adverse Reactions, Alerts Substance Reaction Severity Status terazosin DIZZINESS Active Glutens Active Xolair anaphylaxis Active Immunizations Given and Recorded Vaccine Date Status Refusal Reason [id number] 12y+ bivalent booster vax 03/26/22 Recorded SARS-CoV-2 [...] Refills, Maintenance, 11/10/22 15:49:00 EDT, Tablet, [facility], Partial fill upon patient request if the [...] Refills, Soft Stop, 10/25/19 11:51:00 EDT, Shampoo, [facility]/pharmacy #0859, 1 application Topically Daily, 113.6, kg, 01/22/19 15:29:00 EDT, Dry Weight Start Date: 10/25/19 Status: Ordered ketotifen 0.025% ophthalmic solution 1 drops, Eyes, Both, Every 8 hours, # 7.5 mL, 1 Refills, Maintenance, 08/25/22 15:57:00 EDT, Solution, [facility]/pharmacy #0859, Partial fill upon patient request [...] MOUTH AT BEDTIME NEEDED FOR INSOMNIA 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 [...] Primary Care Member Role: PCP Address: [facility] [place] [address]- Care Team Related Persons Name: AISHA ESTEVES Address: home [address] [address] Name: CECE ESTEVES Address: [place] [address] Name: CECE NUÑEZ Address: home [address] [place] [address]
--- OUTSIDE RECORDS SUMMARY | 2024-03-27 15:16 | XMS_ITS | Continuity of Care Document ---
Author Organization [facility] Address [address] [place] [address]- Care Team Providers Care Network Management Specialist Name Role Phone Yaima Brizuela MD Primary Care Physician [place] [facility] [place]12[place]24 - 02/11/24 [facility] [address] [place], [place] [address] Allergies, Adverse Reactions, Alerts Substance Reaction Severity Status terazosin DIZZINESS Active Glutens Active Xolair anaphylaxis Active Immunizations Given and Recorded Vaccine Date Status Refusal Reason SARS-CoV-2(COVID-19)mRNA-LNP vac([id number]) 03/18/23 Recorded [id number] 12y+ bivalent booster vax 03/26/22 Recorded SARS-CoV-2 [...] 3 Refills, Maintenance, 08/03/23 13:17:00 EST, Tablet, 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
--- OUTSIDE RECORDS SUMMARY | 2024-03-27 15:16 | XMS_ITS | Continuity of Care Document ---
Author Organization [facility] Address [address] [place] [address]- Care Team Providers Care Pipe Line Inspector Name Role Phone Yaima Brizuela MD Primary Care Physician [phone] Encounter [facility] [place] Date(s): 12/17/20 - 01/16/21 [facility] [address] [place], [place] [address] Allergies, Adverse Reactions, Alerts Substance Reaction [...] 56 tablet, 0 Refills, Acute, 08/20/20 8:36:00EDT, [facility] ST[facility] 37559, 179, cm, 07/18/20 14:54:00 EST, Height, 113.6, [...] EDT, 05/06/20 12:22:00 [facility] # 302, 1 tablet... Start [...] 3 Refills, Maintenance, 12/09/20 11:35:00 EDT, Tablet, [facility]/pharmacy #0859, 179, cm, 11/27/20 14:03:00 EDT, Height, 121.1, kg, 10/22/20 14:46:00 EDT, Dry Weight Start Date: 12/09/20 Status: Ordered rizatriptan 5 mg oral tablet 1 tablet = 5 mg, By Mouth, Daily, PRN for migraine headache, may repeat dose every 2 hours up to a maximum of 3, # 30 tablet, 5 Refills, Maintenance, 10/09/20 16:46:00 EDT, Tablet, [facility]/pharmacy #0859, Partial fill upon patient [...] tablet, 5 Refills, Maintenance, 07/25/20 12:12:00 EST, [facility], 179, cm, 07/18/20 14:54:00 [...]
--- OUTSIDE RECORDS SUMMARY | 2024-03-27 15:16 | XMS_ITS | Continuity of Care Document ---
Author Organization [facility] Address [address] [place] [address]- Care Team Providers Care Product Responsibility Liaison Name Role Phone Yaima Brizuela MD Primary Care Physician Encounter [facility] Date(s): 01/18/23 - 02/17/23 [facility] [address] [place], [place] [address] Allergies, Adverse Reactions, Alerts Substance Reaction Severity Status terazosin DIZZINESS Active Glutens Active Xolair anaphylaxis Active Immunizations Given and Recorded Vaccine Date Status Refusal Reason [id number] 12y+ bivalent booster vax 03/26/22 Recorded SARS-CoV-2 [...] 2 Refills, Maintenance, 11/10/22 15:49:00 EDT, Tablet, [facility]/pharmacy #[id number], Partial fill upon patient request if the [...] Refills, Soft Stop, 10/25/19 11:51:00 EDT, Shampoo, [facility]/pharmacy #0859, 1 application Topically Daily, 113.6, kg, 01/22/19 15:29:00 EDT, Dry Weight Start Date: 10/25/19 Status: Ordered ketotifen 0.025% ophthalmic solution 1 drops, Eyes, Both, Every 8 hours, # 7.5 mL, 1 Refills, Maintenance, 08/25/22 15:57:00 EDT, Solution, [facility]/pharmacy #0859, Partial fill upon patient request [...] MOUTH AT BEDTIME NEEDED FOR INSOMNIA 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 [...] Name: Yaima Brizuela MD Position: [facility] Physician - Primary Care Member Role: PCP Address: Address: [address] [place] [address]- Care Team Related Persons Name: AISHA ESTEVES Address: home [address] [place] [address] Name: CECE ESTEVES Address: [place] [address] Name: CECE NUÑEZ Address: home [address] [place] [address]
--- OUTSIDE RECORDS SUMMARY | 2024-03-27 15:16 | XMS_ITS | Continuity of Care Document ---
Author Organization [facility] Address [address] [place] [address]- Care Team Providers Care Teletypewriter Operator Name Role Phone Chata HUGHES, Yaima Reed Primary Care Physician Encounter [facility] Date(s): 11/10/22 - 12/10/22 [facility] [address] [place] [address]- Allergies, Adverse Reactions, Alerts Substance Reaction Severity Status terazosin DIZZINESS Active Glutens Active Xolair anaphylaxis Active Immunizations Given and Recorded Vaccine Date Status Refusal Reason [id number] 12y+ bivalent booster vax 03/26/22 Recorded SARS-CoV-2 [...] 2 Refills, Maintenance, 11/10/22 15:49:00 EDT, Tablet, [facility]/pharmacy #[id number], Partial fill upon patient request if the [...] 1 Refills, Maintenance, 08/25/22 15:57:00 EDT, Solution, [facility]/pharmacy #0859, Partial fill upon [...] MOUTH AT BEDTIME NEEDED FOR INSOMNIA 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 [...] Primary Care Member Role: PCP Address: Address: [address] [place] [address]- Care Team Related Persons Name: AISHA ESTEVES Address: home [address] [address] Name: CECE ESTEVES Address: [place] [address] Name: CECE NUÑEZ Address: home [address] [place] [address]
--- OUTSIDE RECORDS SUMMARY | 2024-03-27 15:16 | XMS_ITS | Continuity of Care Document ---
Author Organization [facility] Address [address] [place] [address]- Care Team Providers Care Financial Adviser Name Role Phone Chata HUGHES, Yaima Reed Primary Care Physician [phone] Encounter [facility] Date(s): 12/12/20 - 01/11/21 [facility] [address] [place], [place] [address] Allergies, Adverse Reactions, Alerts [...] 56 tablet, 0 Refills, Acute, 08/20/20 8:36:00EDT, [facility] STORE 24600, 179, cm, 07/18/20 14:54:00 EST, Height, 113.6, [...] Refills, Soft Stop, 10/25/19 11:51:00 EDT, Shampoo, [facility]/pharmacy #[id number], 1 application Topically Daily, 113.6, [...] EDT, 05/06/20 12:22:00 [facility], [facility] # 302, 1 tablet... [...] 3 Refills, Maintenance, 12/09/20 11:35:00 EDT, Tablet, [facility]/pharmacy #0859, 179, cm, 11/27/20 14:03:00 EDT, Height, 121.1, kg, 10/22/20 14:46:00 EDT, Dry Weight Start Date: 12/09/20 Status: Ordered rizatriptan 5 mg oral tablet 1 tablet = 5 mg, By Mouth, Daily, PRN for migraine headache, may repeat dose every 2 hours up to a maximum of 3, # 30 tablet, 5 Refills, Maintenance, 10/09/20 16:46:00 EDT, Tablet, [facility]/pharmacy #[id number], Partial fill upon patient request [...] tablet, 5 Refills, Maintenance, 07/25/20 12:12:00 EST, [facility] # 302, 179, cm, 07/18/20 14:54:00 [...]
--- OUTSIDE RECORDS SUMMARY | 2024-03-27 15:16 | XMS_ITS | Continuity of Care Document ---
Author Organization [facility] Address [address] [place] [address]- Care Team Providers Care Woodworker Helper Name Role Phone Yaima Brizuela MD Primary Care Physician Encounter [facility] Date(s): 06/10/20 - 07/10/20 [facility] [address] [place], [place] [address] Allergies, Adverse [...] Maintenance, 10/10/19 11:17:00 EDT, Tablet, [facility]/pharmacy #[id number], 113.6, kg, 01/22/19 15:29:00 EDT, Dry [...] Acute 11/20/20 15:45:00 EDT, 11/21/19 15:42:00 EDT, [facility] # 302, 113.6, kg, 01/22/19 15:29:00 EDT, Dry Weight Start Date: 11/21/19 Stop Date: 11/20/20 Status: Ordered zolpidem 10 mg oral tablet See Instructions, TAKE ONE TABLET BY MOUTH AT BEDTIME NEEDED FOR INSOMNIA, # 30 tablet, 3 Refills, Maintenance, 04/21/20 17:29:00 EST, [facility] # 302, 179, cm, 04/07/20 11:04:00 [...]
--- OUTSIDE RECORDS SUMMARY | 2024-03-27 15:16 | XMS_ITS | Continuity of Care Document ---
Author Organization [facility] Address [address] [place] [address]- Care Team Providers Care Cold Working Supervisor Name Role Phone Yaima Brizuela MD Primary Care Physician [place] [facility] [place] Date(s): 12/20/22 - 01/19/23 [facility] [address] [place], [place] [address] Allergies, Adverse Reactions, Alerts Substance Reaction Severity Status terazosin DIZZINESS Active Glutens Active Xolair anaphylaxis Active Immunizations Given and Recorded Vaccine Date Status Refusal Reason [id number] 12y+ bivalent booster vax 03/26/22 Recorded SARS-CoV-2 [...] Refills, Maintenance, 11/10/22 15:49:00 EDT, Tablet, [id number], Partial fill upon patient request if the [...] 1 Refills, Maintenance, 08/25/22 15:57:00 EDT, Solution, [facility]/pharmacy #[id number], Partial fill [...] MOUTH AT BEDTIME NEEDED FOR INSOMNIA 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
--- OUTSIDE RECORDS SUMMARY | 2024-03-27 15:16 | XMS_ITS | Continuity of Care Document ---
Author Organization [facility] Address [address] [place] [address]- Care Team Providers Care Party Plan Sales Consultant Name Role Phone Chata HUGHES, Yaima Reed Primary Care Physician En[place] [facility] [place] Date(s): 02/16/24 - 03/17/24 [facility] [address] [place] [address]- Allergies, Adverse Reactions, Alerts Substance Reaction Severity Status terazosin DIZZINESS Active Glutens Active Xolair anaphylaxis Active Immunizations Given and Recorded Vaccine Date Status Refusal Reason SARS-CoV-2(COVID-19)mRNA-LNP vac([id number]) 03/18/23 Recorded [id number] 12y+ bivalent booster vax 03/26/22 Recorded SARS-CoV-2 [...] Refills, Maintenance, 03/12/24 9:19:00 EDT, Tablet, [id number], Partial fill upon patient request if... Start Date: 03/12/24 Status: Ordered benzonatate 200 mg oral capsule 1 capsule = 200 mg, By Mouth, 3 times a day, PRN as needed for cough, for 7 days, # 21 capsule, 0 Refills, Acute 03/24/24 15:47:00 EDT, 03/17/24 15:47:00 EDT, Capsule, [facility]/pharmacy #[id number], Partial fill upon patient request if the prescription is for a... Start Date: 03/17/24 Stop Date: 03/24/24 Status: Ordered benzonatate 200 mg oral capsule 1 capsule = 200 mg, By Mouth, 3 times a day, PRN as needed for cough, for 14 days, # 42 capsule, 3 Refills, Acute 05/19/24 15:47:00 EST, 03/24/24 15:47:00 EDT, Capsule, [facility]/pharmacy #[id number], new rx please fill, 178, cm, 03/10/24 15:24:00 EDT, Height, 11... Start Date: 03/24/24 Stop Date: 05/19/24 Status: Ordered candesartan 4 mg oral tablet 1/2 TO 1 TABLET, By Mouth, Daily, # 90 tablet, 1 Refills, Maintenance, 01/18/24 16:13:00 EDT, [facility]/pharmacy #[id number], 178, cm, 01/09/24 15:03:00 EDT, [...] Refills, Maintenance, 08/25/22 15:57:00 EDT, Solution, [facility]/pharmacy #[id number], Partial fill upon patient request if the prescription is for a schedule II opioid drug., 1 drops Eyes, Both Every 8 hours, 177.8... Start Date: 08/25/22 Status: Ordered liothyronine 25 mcg oral tablet See Instructions, TAKES 4 TABS BY Mouth Daily, 0 Refills, Maintenance, 03/05/19 15:16:09 EDT, Tablet Start Date: 03/05/19 Status: Ordered nystatin 854051 u/ml oral suspension 5 mL = 500,000 units, By Mouth, 4 times a day, for 7 days, swish and swallow, # 140 mL, 0 Refills, Acute 03/19/24 15:32:00 EDT, 03/12/24 15:32:00 EDT, Suspension, [facility]/pharmacy #[id number], Partial fill upon [...] 3 Refills, Maintenance, 08/03/23 13:17:00 EST, Tablet, [facility]/pharmacy #[id number], Partial fill upon [...] Refills, Maintenance, 11/28/23 8:27:00 EDT, [facility], 178, cm, 11/17/23 10:55:00 EDT, Height, 113, [...] MOUTH AT BEDTIME NEEDED FOR INSOMNIA 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
--- OUTSIDE RECORDS SUMMARY | 2024-03-27 15:17 | XMS_ITS | Continuity of Care Document ---
Author Organization [facility] Sohail yao Address [address] [place] [address] [address] [place] [address]- Care Team Providers Care Plug Sorter Name Role Phone Chata HUGHES, Yaima Reed Primary Care Physician En[place] [facility] Date(s): 11/26/20 - 12/26/20 [facility] [address] [place] [address]- Allergies, Adverse Reactions, Alerts Substance Reaction Severity [...] 0 Refills, Acute, 08/20/20 8:36:00EDT, [facility], 179, cm, 07/18/20 14:54:00 EST, Height, 113.6, [...] Refills, Soft Stop, 10/25/19 11:51:00 EDT, Shampoo, [facility]/pharmacy #0859, 1 application Topically Daily, [...] Physician Stop 03/02/21 12:22:00 EDT, 05/06/20 12:22:00 [facility], [facility] # 302, 1 tablet... Start Date: [...] 3 Refills, Maintenance, 12/09/20 11:35:00 EDT, Tablet, [facility]/pharmacy #0859, 179, cm, 11/27/20 14:03:00 EDT, Height, 121.1, kg, 10/22/20 14:46:00 EDT, Dry Weight Start Date: 12/09/20 Status: Ordered rizatriptan 5 mg oral tablet 1 tablet = 5 mg, By Mouth, Daily, PRN for migraine headache, may repeat dose every 2 hours up to a maximum of 3, # 30 tablet, 5 Refills, Maintenance, 10/09/20 16:46:00 EDT, Tablet, [facility]/pharmacy #[id number], Partial fill upon patient [...] tablet, 5 Refills, Maintenance, 07/25/20 12:12:00 EST, [facility] # 302, 179, cm, 07/18/20 14:54:00 EST, Height, 113.6, kg, 01/22/19 15:29:00 EDT, Dry Weight Start Date: 07/25/20 Status: Ordered zolpidem 10 mg oral tablet See Instructions, TAKE ONE TABLET BY MOUTH AT BEDTIME NEEDED FOR INSOMNIA, # 30 tablet, 5 Refills, Maintenance, 07/24/20 13:33:00 EST, [facility]/pharmacy #[id number], 179, cm, 07/18/20 14:54:00 [...]
--- OUTSIDE RECORDS SUMMARY | 2024-03-27 15:17 | XMS_ITS | Continuity of Care Document ---
Author Organization [facility] Address [address] [place] [address]- Care Team Providers Care Welfare Officer Name Role Phone Chata HUGHES, Yaima Reed Primary Care Physician [phone] [place] [facility] [place] 11/27/20 - 12/27/20 [facility] [address] [place], [place] [address] Allergies, Adverse Reactions, Alerts Substance Reaction [...] 56 tablet, 0 Refills, Acute, 08/20/20 8:36:00EDT, [facility] STORE 11677, 179, cm, 07/18/20 14:54:00 EST, Height, 113.6, [...] Physician Stop 03/02/21 12:22:00 EDT, 05/06/20 12:22:00 [facility] # 302, 1 tablet... Start [...] 5 Refills, Maintenance, 10/09/20 16:46:00 EDT, Tablet, [facility] [...] tablet, 5 Refills, Maintenance, 07/25/20 12:12:00 EST, [facility] # 302, 179, cm, 07/18/20 14:54:00 [...]
--- OUTSIDE RECORDS SUMMARY | 2024-03-27 15:17 | XMS_ITS | Continuity of Care Document ---
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 Start [...]
--- OUTSIDE RECORDS SUMMARY | 2024-03-27 15:17 | XMS_ITS | Continuity of Care Document ---
Author Organization [facility] Address [address] [place] [address]- Care Team Providers Care Multimedia Designer Name Role Phone Yaima Brizuela MD Primary Care Physician Encounter [facility] [place] Date(s): 12/27/22 - 01/26/23 [facility] [address] [place] [address] [place] Allergies, Adverse Reactions, Alerts Substance Reaction Severity Status terazosin DIZZINESS Active Glutens Active Xolair anaphylaxis Active Immunizations Given and Recorded Vaccine Date Status Refusal Reason [id number] 12y+ bivalent booster vax 03/26/22 Recorded SARS-CoV-2 [...] 2 Refills, Maintenance, 11/10/22 15:49:00 EDT, Tablet, [facility]/pharmacy #[id number], Partial fill upon patient request if the prescription is for a schedule II opioid drug., 178, cm, 11/09/22 21:34:00 EDT, Sally... 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/pharmacy #[id number], AURABINDO COMPUTER NUMERICAL CONTROL GRINDER ONLY PLEASE, 177.8, cm, 06/17/22 10:52:00 EST,... [...] Team Personnel Name: Yaima Brizuela MD Position: [facility] Physician - Primary Care Member Role: PCP Address: Address: [address] [address]- Care Team Related Persons Name: AISHA ESTEVES Address: home [address] [place] [address] Name: CECE ESTEVES Address: [place] [address] Name: CECE NUÑEZ Address: home [address] [place] [address]
--- OUTSIDE RECORDS SUMMARY | 2024-03-27 15:17 | XMS_ITS | Continuity of Care Document ---
Author Organization [facility] Address [address] [place] [address]- Care Team Providers Care Vacation Planner Name Role Phone Yaima Brizuela MD Primary Care Physician [place] [facility](s): 08/24/19 - 09/03/19 [facility] [address] [place] [address]- [facility] Attending Physician: Jason Gonzalez Admitting Physician: Admtr, Jason Referring Physician: Admtr, [...] 12/05/19 16:38:00 EDT, 08/07/19 16:38:00 EST, Tablet, [facility] # 302, 113.6, kg, 01/22/1915:29:00 EDT, [...]
--- OUTSIDE RECORDS SUMMARY | 2024-03-27 15:17 | XMS_ITS | Continuity of Care Document ---
Author Organization [facility] Address [address] [place] [address]- Care Team Providers Care Canoe Builder Name Role Phone Yaima Brizuela MD Primary Care Physician En[place] [facility] Date(s): 01/14/20 - 02/13/20 [facility] [address] [place] [address]- [facility] Allergies, Adverse Reactions, Alerts Substance Reaction Severity [...]
--- OUTSIDE RECORDS SUMMARY | 2024-03-27 15:17 | XMS_ITS | Continuity of Care Document ---
Author Organization [facility] Address [address] [place] [address]- Care Team Providers Care Business Management Analyst Name Role Phone Chata HUGHES, Yaima Reed Primary Care Physician En[place] [facility] [place] Date(s): 06/16/23 - 07/16/23 [facility] [address] [place] [address]- Allergies, Adverse Reactions, Alerts Substance Reaction Severity Status terazosin DIZZINESS Active Glutens Active Xolair anaphylaxis Active Immunizations Given and Recorded Vaccine Date Status Refusal Reason SARS-CoV-2(COVID-19)mRNA-LNP vac([id number]) 03/18/23 Recorded [id number] 12y+ bivalent booster vax 03/26/22 Recorded SARS-CoV-2 (COVID-19) mRNA BNT-162b2 vac 1 06/25/21 Recorded SARS-CoV-2 (COVID-19) mRNA BNT-162b2 vac 01/03/21 Recorded SARS-CoV-2 (COVID-19) mRNA BNT-162b2 vac 12/13/20 Recorded 1Result Comment: 3rd dose Medications candesartan 4 mg oral tablet 1/2 TO 1 TABLET, By Mouth, Daily, # 90 tablet, 1 Refills, Maintenance, 03/14/23 6:44:00 EDT, [facility], 178, cm, 01/24/23 15:44:00 EDT, Height, 109.5, [...] Refills, Maintenance, 08/25/22 15:57:00 EDT, Solution, [facility]/pharmacy #[id number], Partial fill upon patient request if [...] MOUTH AT BEDTIME NEEDED FOR INSOMNIA 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
--- OUTSIDE RECORDS SUMMARY | 2024-03-27 15:17 | XMS_ITS | Continuity of Care Document ---
Author Organization [facility] Address [address] [place] [address]- Care Team Providers Care Chief Nurse Executive Name Role Phone Yaima Brizuela MD Primary Care Physician [phone] [place] [facility] [place] 04/17/21 - 05/17/21 [facility] [address] [place], [place] [address] Allergies, Adverse Reactions, Alerts Substance [...] 3 Refills, Maintenance, 12/09/20 11:35:00 EDT, Tablet, [facility]/pharmacy #[id number], 179, cm, 11/27/20 14:03:00 EDT, [...] tablet, 5 Refills, Maintenance, 02/17/21 15:40:00 EDT, [facility] # 302, 179, cm, 02/12/21 11:02:00 [...]
--- OUTSIDE RECORDS SUMMARY | 2024-03-27 15:17 | XMS_ITS | Continuity of Care Document ---
Author Organization [facility] Address [address] [place] [address]- Care Team Providers Care Washing Machine Mechanic Name Role Phone Yaima Brizuela MD Primary Care Physician Encounter [facility] Date(s): 03/02/21 - 04/01/21 [facility] [address] [place], [place] [address] Allergies, Adverse Reactions, Alerts [...] 56 tablet, 0 Refills, Acute, 08/20/20 8:36:00EDT, [facility] STORE 05810, 179, cm, 07/18/20 14:54:00 EST, Height, 113.6, [...] tablet, 5 Refills, Maintenance, 07/24/20 13:33:00 EST, [facility]/pharmacy #[id number], 179, cm, 07/18/20 14:54:00 [...] tablet, 5 Refills, Maintenance, 02/17/21 15:40:00 EDT, [facility] # 302, 179, cm, 02/12/21 11:02:00 [...]
--- OUTSIDE RECORDS SUMMARY | 2024-03-27 15:17 | XMS_ITS | Continuity of Care Document ---
Author Organization [facility] Address [address] [place] [address]- Care Team Providers Care Telegraph Office Telephone Clerk Name Role Phone Chata HUGHES, Yaima Reed Primary Care Physician [phone] Encounter [facility] [id number] Date(s): 02/02/24 - 03/03/24 [facility] [address] [place] [address]- Allergies, Adverse Reactions, Alerts Substance Reaction Severity Status terazosin DIZZINESS Active Glutens Active Xolair anaphylaxis Active Immunizations Given and Recorded Vaccine Date Status Refusal Reason SARS-CoV-2(COVID-19)mRNA-LNP vac([id number]) 03/18/23 Recorded [id number] 12y+ bivalent booster vax 03/26/22 Recorded SARS-CoV-2 [...] 3 Refills, Maintenance, 08/03/23 13:17:00 EST, Tablet, [facility]/pharmacy #[id number], Partial fill [...] Refills, Maintenance, 11/28/23 8:27:00 EDT, [facility], 178, cm, 11/17/23 10:55:00 EDT, Height, 113, kg, 11/17/23 10:55:00 EDT,Dry Weight Start Date: 11/28/23 Status: Ordered zolpidem 10 mg oral tablet See Instructions, TAKE 1 TABLET BY MOUTH AT BEDTIME NEEDED FOR INSOMNIA 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
--- OUTSIDE RECORDS SUMMARY | 2024-03-27 15:17 | XMS_ITS | Continuity of Care Document ---
Author Organization [facility] Address [address] [place] [address]- Care Team Providers Care Per Diem Physical Therapist Assistant Name Role Phone Chata HUGHES, Yaima Reed Primary Care Physician En[place] [facility] [place] Date(s): 12/18/21 - 01/17/22 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 Start [...]
--- OUTSIDE RECORDS SUMMARY | 2024-03-27 15:17 | XMS_ITS | Continuity of Care Document ---
Author Organization [facility] Address [address] [place] [address]- Care Team Providers Care Telemetry Monitor Name Role Phone Yaima Brizuela MD Primary Care Physician [phone] Encounter [facility] [place] Date(s): 02/21/23 - 03/23/23 [facility] [address] [place], [place] [address] Allergies, Adverse Reactions, Alerts Substance Reaction Severity Status terazosin DIZZINESS Active Glutens Active Xolair anaphylaxis Active Immunizations Given and Recorded Vaccine Date Status Refusal Reason [id number] 12y+ bivalent booster vax 03/26/22 Recorded SARS-CoV-2 [...] Refills, Maintenance, 03/14/23 6:44:00 EDT, [facility], 178, cm, 01/24/23 15:44:00 EDT, Height, 109.5, [...] Refills, Soft Stop, 10/25/19 11:51:00 EDT, Shampoo, [facility]/pharmacy #[id number], 1 application Topically Daily, 113.6, kg, 01/22/19 15:29:00 EDT, Dry Weight Start Date: 10/25/19 Status: Ordered ketotifen 0.025% ophthalmic solution 1 drops, Eyes, Both, Every 8 hours, # 7.5 mL, 1 Refills, Maintenance, 08/25/22 15:57:00 EDT, Solution, [facility]/pharmacy #[id number], Partial fill upon patient request if [...] MOUTH AT BEDTIME NEEDED FOR INSOMNIA 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
--- OUTSIDE RECORDS SUMMARY | 2024-03-27 15:17 | XMS_ITS | Continuity of Care Document ---
Author Organization [facility] Address [address] [place] [address]- Care Team Providers Care Risk Intern Name Role Phone Yaima Brizuela MD Primary Care Physician [place] [facility] [place](s): 03/09/22 - 04/08/22 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 [...] Personnel Name: Yaima Brizuela MD Address: Address: [address] [place] [address]
--- OUTSIDE RECORDS SUMMARY | 2024-03-27 15:17 | XMS_ITS | Continuity of Care Document ---
Author Organization [facility] Address [address] [place] [address]- Care Team Providers Care Supervisor Machine Workers Name Role Phone Chata HUGHES, Yaima Reed Primary Care Physician En[place] [facility] [place] Date(s): 12/23/22 - 01/22/23 [facility] [address] [place] [address]- Allergies, Adverse Reactions, Alerts Substance Reaction Severity Status terazosin DIZZINESS Active Glutens Active Xolair anaphylaxis Active Immunizations Given and Recorded Vaccine Date Status Refusal Reason [id number] 12y+ bivalent booster vax 03/26/22 Recorded SARS-CoV-2 [...] 2 Refills, Maintenance, 11/10/22 15:49:00 EDT, Tablet, [facility]/pharmacy #[id number], Partial fill upon patient request if the [...] Refills, Soft Stop, 10/25/19 11:51:00 EDT, Shampoo, [facility]/pharmacy #[id number], 1 application Topically Daily, 113.6, kg, 01/22/19 15:29:00 EDT, Dry Weight Start Date: 10/25/19 Status: Ordered ketotifen 0.025% ophthalmic solution 1 drops, Eyes, Both, Every 8 hours, # 7.5 mL, 1 Refills, Maintenance, 08/25/22 15:57:00 EDT, Solution, [facility]/pharmacy #[id number], Partial fill upon patient [...] MOUTH AT BEDTIME NEEDED FOR INSOMNIA 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 [...] Primary Care Member Role: PCP Address: Address: [address] [place] [address]- Care Team Related Persons Name: AISHA ESTEVES Address: home [address] [place] [address] Name: CECE ESTEVES Address: [place] [address] Name: CECE NUÑEZ Address: home [address] [place] [address]
--- OUTSIDE RECORDS SUMMARY | 2024-03-27 15:17 | XMS_ITS | Continuity of Care Document ---
Author Organization [facility] Address [address] [place] [address]- Care Team Providers Care Appliance Service Supervisor Name Role Phone Yaima Brizuela MD Primary Care Physician Encounter [facility] [place] Date(s): 01/19/21 - 02/18/21 [facility] [address] [place], [place] [address] Allergies, Adverse [...] Acute, 08/20/20 8:36:00EDT, [facility] STORE 58675, 179, cm, 07/18/20 14:54:00 EST, Height, 113.6, [...] Physician Stop 03/02/21 12:22:00 EDT, 05/06/20 12:22:00 [facility] [place], [facility] # 302, 1 tablet... Start Date: [...] 5 Refills, Maintenance, 10/09/20 16:46:00 EDT, Tablet, [facility]/pharmacy #[id number], Partial fill upon patient [...] tablet, 5 Refills, Maintenance, 02/16/21 15:29:00 EDT, [facility]/pharmacy #[id number], 179, cm, 02/12/21 11:02:00 EDT, Height, 121.1, kg, 10/22/20 14:46:00 EDT, Dry Weight Start Date: 02/16/21 Status: Ordered zolpidem 10 mg oral tablet See Instructions, TAKE ONE TABLET BY MOUTH AT BEDTIME NEEDED FOR INSOMNIA, # 30 tablet, 5 Refills, Maintenance, 02/17/21 15:40:00 EDT, [facility] # 302, 179, cm, 02/12/21 11:02:00 [...]
--- OUTSIDE RECORDS SUMMARY | 2024-03-27 15:17 | XMS_ITS | Continuity of Care Document ---
Author Organization [facility] Address [address] [place] [address]- Care Team Providers Care Environmental Aide Name Role Phone Chata HUGHES, Yaima Reed Primary Care Physician [phone] Encounter [facility] [place] Date(s): 05/22/21 - 06/21/21 [facility] [address] [place], [place] [address] Allergies, Adverse Reactions, Alerts Substance Reaction [...] tablet, 5 Refills, Maintenance, 02/17/21 15:40:00 EDT, [facility] # 302, 179, cm, 02/12/21 11:02:00 [...]
--- OUTSIDE RECORDS SUMMARY | 2024-03-27 15:17 | XMS_ITS | Continuity of Care Document ---
Author Organization [facility] Address [address] [place] [address]- Care Team Providers Care Material Lister Name Role Phone Yaima Brizuela MD Primary Care Physician [place] [facility] [place]/20 - 10/29/20 [facility] [address] [place] [address]- Encounter Diagnosis Serous otitis media(Discharge Diagnosis) - 10/22/20 Attending Physician: Tushar Marrufo MD Referring Physician: [...] 0 Refills, Maintenance, 10/07/20 8:17:00 EDT, Tablet, [facility]/pharmacy #[id number], Partial fill upon [...] 56 tablet, 0 Refills, Acute, 08/20/20 8:36:00EDT, [facility] STORE 84311, 179, cm, 07/18/20 14:54:00 EST, Height, 113.6, [...] 18:24:00 EDT, 10/22/20 18:24:00 EDT, ER Tablet, [facility]/pharmacy #0859, Partial fill upon [...] 3 Refills, Maintenance, 10/10/19 11:17:00 EDT, Tablet, [facility]/pharmacy #0859, 113.6, kg, 01/22/19 15:29:00 EDT, Dry Weight Start Date: 10/10/19 Status: Ordered rizatriptan 5 mg oral tablet 1 tablet = 5 mg, By Mouth, Daily, PRN for migraine headache, may repeat dose every 2 hours up to a maximum of 3, # 30 tablet, 5 Refills, Maintenance, 10/09/20 16:46:00 EDT, Tablet, [facility]/pharmacy #0859, Partial fill upon [...] Acute 11/20/20 15:45:00 EDT, 11/21/19 15:42:00 EDT, [facility] # 302, 113.6, kg, 01/22/19 15:29:00 EDT, Dry Weight Start Date: 11/21/19 Stop Date: 11/20/20 Status: Ordered zolpidem 10 mg oral tablet See Instructions, TAKE ONE TABLET BY MOUTH AT BEDTIME NEEDED FOR INSOMNIA, # 30 tablet, 5 Refills, Maintenance, 07/25/20 12:12:00 EST, [facility] # 302, 179, cm, 07/18/20 14:54:00 EST, Height, 113.6, kg, 01/22/19 15:29:00 EDT, Dry Weight Start Date: 07/25/20 Status: Ordered zolpidem 10 mg oral tablet See Instructions, TAKE ONE TABLET BY MOUTH AT BEDTIME NEEDED FOR INSOMNIA, # 30 tablet, 5 Refills, Maintenance, 07/24/20 13:33:00 EST, [facility]/pharmacy #0859, 179, cm, 07/18/20 14:54:00 [...] Dates Health Status Cl inical Service Informant Serous otitis media Discharge Diagnosis 10/22/20 Vital Signs Most recent to oldest [Reference Range]: 1 Height 179 cm (10/22/20 2:44 PM) Weight 121.1 kg (10/22/20 2:44 PM) Oxygen Saturation [94-100 %] 99 % (10/22/20 2:44 PM) Pulse Rate [55-90 bpm] 97 bpm *H* (10/22/20 2:44 PM) Body Mass Index [18.5-24.99] 37.8 *>HHI* (10/22/20 2:44 PM) Blood Pressure [90-138/55-84 mm Hg] 125/ 74mm Hg (10/22/20 2:44 PM) Respiratory Rate [16-30 br/min] 16 br/mi n (10/22/20 2:44 PM) Temperature [96.8-100.4 DegF] 97.5 DegF (10/22/20 2:44 PM) Mode of Delivery (Oxygen) Room air (10/22/20 2:44 PM) Blood pressure sites Arm, right (10/22/20 2:44 PM) Temperature Route Temporal (10/22/20 2:44 PM) Dry Weight 121.1 kg (10/22/20 2:44 PM) Weight Obtained Via Standing scale (10/22/20 2:44 PM) Dry Weight Obtained Via Standing scale (10/22/20 2:44 PM)
--- OUTSIDE RECORDS SUMMARY | 2024-03-27 15:17 | XMS_ITS | Continuity of Care Document ---
Author Organization [facility] Address [address] [place] [address]- Care Team Providers Care Dredgemaster Name Role Phone Chata HUGHES, Yaima Reed Primary Care Physician [phone] Encounter [facility] ACCT R [id number] Date(s): 12/20/23 - 01/19/24 [facility] [address] [place] [address]- Allergies, Adverse Reactions, Alerts Substance Reaction Severity Status terazosin DIZZINESS Active Glutens Active Xolair anaphylaxis Active Immunizations Given and Recorded Vaccine Date Status Refusal Reason SARS-CoV-2(COVID-19)mRNA-LNP vac([id number]) 03/18/23 Recorded [id number] 12y+ bivalent booster vax 03/26/22 Recorded SARS-CoV-2 [...] 1 Refills, Maintenance, 08/25/22 15:57:00 EDT, Solution, [facility]/pharmacy #[id number], Partial fill upon [...] 3 Refills, Maintenance, 08/03/23 13:17:00 EST, Tablet, [facility]/pharmacy #[id number], Partial fill [...] Refills, Maintenance, 11/28/23 8:27:00 EDT, [facility], 178, cm, 11/17/23 10:55:00 EDT, Height, 113, kg, 11/17/23 10:55:00 EDT,Dry Weight Start Date: 11/28/23 Status: Ordered zolpidem 10 mg oral tablet See Instructions, TAKE 1 TABLET BY MOUTH AT BEDTIME NEEDED FOR INSOMNIA 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
--- OUTSIDE RECORDS SUMMARY | 2024-03-27 15:17 | XMS_ITS | Continuity of Care Document ---
Author Organization [facility] Address [address] [place] [address]- Care Team Providers Care Produce Assistant Name Role Phone Chata HUGHES, Yaima Reed Primary Care Physician En[place] [facility] [place] ACCT R [id number] Date(s): 11/22/23 - 12/22/23 [facility] [address] [place] [address]- Allergies, Adverse Reactions, Alerts Substance Reaction Severity Status terazosin DIZZINESS Active Glutens Active Xolair anaphylaxis Active Immunizations Given and Recorded Vaccine Date Status Refusal Reason SARS-CoV-2(COVID-19)mRNA-LNP vac([id number]) 03/18/23 Recorded [id number] 12y+ bivalent booster vax 03/26/22 Recorded SARS-CoV-2 (COVID-19) mRNA BNT-162b2 vac 1 06/25/21 Recorded SARS-CoV-2 (COVID-19) mRNA BNT-162b2 vac 01/03/21 Recorded SARS-CoV-2 (COVID-19) mRNA BNT-162b2 vac 12/13/20 Recorded 1Result Comment: 3rd dose Medications candesartan 4 mg oral tablet 1/2 TO 1 TABLET, By Mouth, Daily, # 90 tablet, 1 Refills, Maintenance, 03/14/23 6:44:00 EDT, [facility], 178, cm, 01/24/23 15:44:00 EDT, Height, 109.5, [...] Refills, Maintenance, 11/28/23 8:27:00 EDT, [facility], 178, cm, 11/17/23 10:55:00 EDT, Height, 113, kg, 11/17/23 10:55:00 EDT,Dry Weight Start Date: 11/28/23 Status: Ordered zolpidem 10 mg oral tablet See Instructions, TAKE 1 TABLET BY MOUTH AT BEDTIME NEEDED FOR INSOMNIA 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
--- OUTSIDE RECORDS SUMMARY | 2024-03-27 15:18 | XMS_ITS | Continuity of Care Document ---
Author Organization [facility] Address [address] [place] [address]- Care Team Providers Care Bi Data Architect Name Role Phone Chata HUGHES, Yaima Reed Primary Care Physician Encounter [facility] Date(s): 11/11/22 - 12/11/22 [facility] [address] [place] [address]- Allergies, Adverse Reactions, Alerts Substance Reaction Severity Status terazosin DIZZINESS Active Glutens Active Xolair anaphylaxis Active Immunizations Given and Recorded Vaccine Date Status Refusal Reason [id number] 12y+ bivalent booster vax 03/26/22 Recorded SARS-CoV-2 [...] Refills, Maintenance, 11/10/22 15:49:00 EDT, Tablet, [id number], Partial fill upon patient request if the [...] MOUTH AT BEDTIME NEEDED FOR INSOMNIA 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 [...] Primary Care Member Role: PCP Address: Address: [address] [place] [address]- Care Team Related Persons Name: AISHA ESTEVES Address: home [address] [address] Name: CECE ESTEVES Address: [place] [address] Name: CECE NUÑEZ Address: home [address] [place] [address]
--- OUTSIDE RECORDS SUMMARY | 2024-03-27 15:18 | XMS_ITS | Summary of Care ---
Author Organization [facility] Address [address] [place] [address] Care Team Providers Care Livestock Trader Name Role Phone PAULINA AVILA MD Primary Care Physician Encounter [facility] [id number] Date(s): 10/30/20 - 10/30/20 [facility] [address] [place] [address] Discharge Disposition: Discharge Attending Physician: KONG LYLE MD Referring Physician: PAULINA AVILA MD
--- OUTSIDE RECORDS SUMMARY | 2024-03-27 15:18 | XMS_ITS | Continuity of Care Document ---
Author Organization [facility] Address [address] [place] [address]- Care Team Providers Care Content Writer Name Role Phone Yaima Brizuela MD Primary Care Physician Encounter [facility] [place] Date(s): 07/18/20 - 07/25/20 [facility] [address] [place] [address]- Encounter Diagnosis Serous otitis media(Discharge Diagnosis) - 07/18/20 Attending Physician: Tushar Marrufo MD Referring Physician: [...] Soft Stop, 10/25/19 11:51:00 EDT, Shampoo, [facility]/pharmacy #[id number], 1 application Topically Daily, 113.6, kg, [...] Stop 03/02/21 12:22:00 EDT, 05/06/20 12:22:00 EST, [facility] # 302, 1 tablet... Start [...] Refills, Maintenance, 10/10/19 11:17:00 EDT, Tablet, [facility]/pharmacy #[id number], 113.6, kg, 01/22/19 15:29:00 EDT, Dry [...] Acute 11/20/20 15:45:00 EDT, 11/21/19 15:42:00 EDT, [facility] # 302, 113.6, kg, 01/22/19 15:29:00 EDT, Dry Weight Start Date: 11/21/19 Stop Date: 11/20/20 Status: Ordered zolpidem 10 mg oral tablet See Instructions, TAKE ONE TABLET BY MOUTH AT BEDTIME NEEDED FOR INSOMNIA, # 30 tablet, 5 Refills, Maintenance, 07/25/20 12:12:00 EST, [facility] # 302, 179, cm, 07/18/20 14:54:00 EST, Height, 113.6, kg, 01/22/19 15:29:00 EDT, Dry Weight Start Date: 07/25/20 Status: Ordered zolpidem 10 mg oral tablet See Instructions, TAKE ONE TABLET BY MOUTH AT BEDTIME NEEDED FOR INSOMNIA, # 30 tablet, 5 Refills, Maintenance, 07/24/20 13:33:00 EST, [facility]/pharmacy #[id number], 179, cm, 07/18/20 14:54:00 EST, Height, [...] Service Informant Serous otitis media Discharge Diagnosis 07/18/20 Vital Signs Most recent to oldest [Reference Range]: 1 Height 179 cm (07/18/20 2:54 PM) Oxygen Saturation [94-100 %] 98 % (07/18/20 2:54 PM) Pulse Rate [55-90 bpm] 85 bpm (07/18/20 2:54 PM) Blood Pressure [90-138/55-84 mm Hg] 125/ 78mm Hg (07/18/20 2:54 PM) Respiratory Rate [16-30 br/min] 24 br/mi n (07/18/20 2:54 PM) Temperature [96.8-100.4 DegF] 97.1 DegF (07/18/20 2:54 PM) Mode of Delivery (Oxygen) Room air (07/18/20 2:54 PM) Blood pressure sites Arm, right (07/18/20 2:54 PM) Temperature Route Temporal (07/18/20 2:54 PM)
--- OUTSIDE RECORDS SUMMARY | 2024-03-27 15:18 | XMS_ITS | Continuity of Care Document ---
Author Organization [facility] Address [address] [place] [address]- Care Team Providers Care Charge Account Authorizer Name Role Phone Yaima Brizuela MD Primary Care Physician [place] [facility] [place] Date(s): 10/24/20 - 11/23/20 [facility] [address] [place], [place] [address] Allergies, Adverse Reactions, Alerts [...] 56 tablet, 0 Refills, Acute, 08/20/20 8:36:00EDT, [facility] STORE 37033, 179, cm, 07/18/20 14:54:00 EST, Height, 113.6, [...] Refills, Soft Stop, 10/25/19 11:51:00 EDT, Shampoo, [facility]/pharmacy #0859, 1 application Topically [...] Physician Stop 03/02/21 12:22:00 EDT, 05/06/20 12:22:00 [facility], [facility] # 302, 1 [...] 3 Refills, Maintenance, 10/10/19 11:17:00 EDT, Tablet, [facility]/pharmacy #0859, 113.6, kg, 01/22/19 15:29:00 EDT, Dry Weight Start Date: 10/10/19 Status: Ordered rizatriptan 5 mg oral tablet 1 tablet = 5 mg, By Mouth, Daily, PRN for migraine headache, may repeat dose every 2 hours up to a maximum of 3, # 30 tablet, 5 Refills, Maintenance, 10/09/20 16:46:00 EDT, Tablet, [facility]/pharmacy #[id number], Partial fill upon [...] tablet, 5 Refills, Maintenance, 07/25/20 12:12:00 EST, [facility] # 302, 179, cm, 07/18/20 14:54:00 [...]
--- OUTSIDE RECORDS SUMMARY | 2024-03-27 15:18 | XMS_ITS | Summary of Care ---
Author Organization [facility] Address [address] [place] [address]- Care Team Providers Care Dock Manager Name Role Phone AUSTIN HUGHES, PAULINA Primary Care Physician [phone] Encounter [facility] [id number] Date(s): 01/04/22 - 01/04/[address] [address]- Encounter Diagnosis Spinal instabilities, sacral and sacrococcygeal region(Final) - Sacrococcygeal disorders, not elsewhere classified(Final) - Hypermobility syndrome(Final) - Discharge Disposition: Discharge Attending Physician: KONG LYLE MD Referring Physician: PAULINA AVILA MD
--- OUTSIDE RECORDS SUMMARY | 2024-03-27 15:18 | XMS_ITS | Continuity of Care Document ---
Author Organization [facility] Address [address] [place] [address]- Care Team Providers Care Contact Center Rep Name Role Phone Yaima Brizuela MD Primary Care Physician Encounter [place] Date(s): 08/13/20 - 09/12/20 [facility] [address] [place], [place] [address] Allergies, Adverse Reactions, Alerts Substance [...] tablet, 0 Refills, Acute, 08/20/20 8:36:00EDT, [facility] STORE 03095, 179, cm, 07/18/20 14:54:00 EST, Height, 113.6, [...] Soft Stop, 10/25/19 11:51:00 EDT, Shampoo, [facility]/pharmacy #0859, 1 application Topically Daily, 113.6, [...] 03/02/21 12:22:00 EDT, 05/06/20 12:22:00 EST, [facility] # 302, 1 tablet... Start Date: [...] Refills, Maintenance, 10/10/19 11:17:00 EDT, Tablet, [facility]/pharmacy #0859, 113.6, kg, 01/22/19 15:29:00 EDT, [...] 11/20/20 15:45:00 EDT, 11/21/19 15:42:00 EDT, [facility] # 302, 113.6, kg, 01/22/19 15:29:00 EDT, Dry Weight Start Date: 11/21/19 Stop Date: 11/20/20 Status: Ordered zolpidem 10 mg oral tablet See Instructions, TAKE ONE TABLET BY MOUTH AT BEDTIME NEEDED FOR INSOMNIA, # 30 tablet, 5 Refills, Maintenance, 07/25/20 12:12:00 EST, [facility] # 302, 179, cm, 07/18/20 14:54:00 EST, Height, 113.6, kg, 01/22/19 15:29:00 EDT, Dry Weight Start Date: 07/25/20 Status: Ordered zolpidem 10 mg oral tablet See Instructions, TAKE ONE TABLET BY MOUTH AT BEDTIME NEEDED FOR INSOMNIA, # 30 tablet, 5 Refills, Maintenance, 07/24/20 13:33:00 EST, [facility]/pharmacy #[id number], 179, cm, 07/18/20 14:54:00 EST, [...]
--- OUTSIDE RECORDS SUMMARY | 2024-03-27 15:18 | XMS_ITS | Continuity of Care Document ---
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 Carpal tunnel syndrome(Discharge Diagnosis) - 02/07/24 Attending Physician: Rishabh Abrams MD Referring Physician: Yamia Brizuela MD Allergies, Adverse Reactions, Alerts Substance Reaction Severity Status terazosin DIZZINESS Active Glutens Active Xolair anaphylaxis Active Immunizations Given and Recorded Vaccine Date Status Refusal Reason SARS-CoV-2(COVID-19)mRNA-LNP vac([id number]) 03/18/23 Recorded [id number] 12y+ bivalent booster vax 03/26/22 Recorded SARS-CoV-2 [...] Refills, Maintenance, 11/28/23 8:27:00 EDT, [facility], 178, cm, 11/17/23 10:55:00 EDT, Height, 113, kg, 11/17/23 10:55:00 EDT,Dry Weight Start Date: 11/28/23 Status: Ordered zolpidem 10 mg oral tablet See Instructions, TAKE 1 TABLET BY MOUTH AT BEDTIME NEEDED FOR INSOMNIA 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 (Rx order must be sent to pharmacy [...] Dates Health Status Cl inical Service Informant Insomnia Discharge Diagnosis 02/07/24 Migraines Discharge Diagnosis 02/07/24 Amos-Danlos syndrome Discharge Diagnosis 02/07/24 Carpal tunnel syndrome Discharge Diagnosis 02/07/24 Social History Social History Type Response Smoking Status Never (less than 100 in lifetime) entered on: 05/14/21 Sex Patient Care team information Care Team Personnel Name: Yaima Brizuela MD Position: [facility] Physician - Primary Care Member Role: PCP Address: Address: [address] [place] [address]- Care Team Related Persons Name: AISHA ESTEVES Address: home [address] [facility] [address] [place] [address] Name: CECE ESTEVES Address: [place] [address] Name: CECE NUÑEZ Address: home [address] [place] [address]
--- OUTSIDE RECORDS SUMMARY | 2024-03-27 15:18 | XMS_ITS | Continuity of Care Document ---
Author Organization [facility] Address [address] [place] [address]- Care Team Providers Care Chief Risk Officer Name Role Phone Yaima Brizuela MD Primary Care Physician [phone] [place] [facility] [place](s): 05/22/20 - 06/21/20 [facility] [address] [place], [place] [address] Allergies, Adverse Reactions, Alerts Substance [...] Stop 03/02/21 12:22:00 EDT, 05/06/20 12:22:00 EST, [facility] # 302, 1 tablet... [...] Maintenance, 10/10/19 11:17:00 EDT, Tablet, [facility]/pharmacy #[id number], 113.6, kg, 01/22/19 15:29:00 EDT, Dry Weight Start Date: 10/10/19 Status: Ordered SUMAtriptan 50 mg oral tablet 1 tablet = 50 mg, By Mouth, Daily, PRN for migraine headache, may repeat dose after 2 hours up to amaximum of 2, # 9 tablet, 1 Refills, Acute 06/29/20 14:53:00 EST, 05/29/20 14:53:00 EST, Tablet, [facility]/pharmacy #[id number], Partial fill upon [...] Acute 11/20/20 15:45:00 EDT, 11/21/19 15:42:00 EDT, [facility] # 302, 113.6, kg, 01/22/19 15:29:00 EDT, Dry Weight Start Date: 11/21/19 Stop Date: 11/20/20 Status: Ordered zolpidem 10 mg oral tablet See Instructions, TAKE ONE TABLET BY MOUTH AT BEDTIME NEEDED FOR INSOMNIA, # 30 tablet, 3 Refills, Maintenance, 04/21/20 17:29:00 EST, [facility] # 302, 179, cm, 04/07/20 11:04:00 [...]
--- OUTSIDE RECORDS SUMMARY | 2024-03-27 15:18 | XMS_ITS | Summary of Care ---
Author Organization [facility] Address [address] [place], [place] [address]- Care Team Providers Care Miter Cutter Name Role Phone PAULINA AVILA MD Primary Care Physician Encounter [facility] [id number] Date(s): 08/12/20 - 08/12/[address] [address]- [facility] Encounter Diagnosis Sacrococcygeal disorders, not elsewhere classified(Final) - Pelvic and perineal pain(Final) - Discharge Disposition: Discharge Attending Physician: KONG LYLE MD Referring Physician: PAULINA AVILA MD
--- OUTSIDE RECORDS SUMMARY | 2024-03-27 15:18 | XMS_ITS | Summary of Care ---
Author Organization [facility] Address [address] [place] [address]- Care Team Providers Care Quarter Backer Name Role Phone PAULINA AVILA MD Primary Care Physician [phone] Encounter [facility] [id number] Date(s): 04/10/21 - 04/10/[address] [address]- Discharge Disposition: Discharge Attending Physician: KONG LYLE MD Referring Physician: PAULINA AVILA MD
--- OUTSIDE RECORDS SUMMARY | 2024-03-27 15:18 | XMS_ITS | Continuity of Care Document ---
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 Start [...]
--- OUTSIDE RECORDS SUMMARY | 2024-03-27 15:18 | XMS_ITS | Continuity of Care Document ---
Author Organization [facility] Address [address] [place] [address]- Care Team Providers Care Customs Agent Name Role Phone Yaima Brizuela MD Primary Care Physician [place] [facility] [id number] Date(s): 03/07/24 - 03/14/24 [facility] [address] [place], [place] [address] Attending Physician: Not on Staff, Attending MD Allergies, Adverse Reactions, Alerts Substance Reaction Severity Status terazosin DIZZINESS Active Glutens Active Xolair anaphylaxis Active Immunizations Given and Recorded Vaccine Date Status Refusal Reason SARS-CoV-2(COVID-19)mRNA-LNP vac([id number]) 03/18/23 Recorded [id number] 12y+ bivalent booster vax 03/26/22 Recorded SARS-CoV-2 [...] Refills, Maintenance, 03/12/24 9:19:00 EDT, Tablet, [id number], Partial fill upon patient request if... Start [...] Refills, Maintenance, 08/25/22 15:57:00 EDT, Solution, [facility]/pharmacy #[id number], Partial fill upon patient request if the prescription is for a schedule II opioid drug., 1 drops Eyes, Both Every 8 hours, 177.8... Start Date: 08/25/22 Status: Ordered liothyronine 25 mcg oral tablet See Instructions, TAKES 4 TABS BY Mouth Daily, 0 Refills, Maintenance, 03/05/19 15:16:09 EDT, Tablet Start Date: 03/05/19 Status: Ordered nystatin [id number] u/ml oral suspension 5 mL = 500,000 units, By Mouth, 4 times a day, for 7 days, swish and swallow, # 140 mL, 0 Refills, Acute 03/19/24 15:32:00 EDT, 03/12/24 15:32:00 EDT, Suspension, [facility]/pharmacy #[id number], Partial fill upon patient request [...] Refills, Maintenance, 08/03/23 13:17:00 EST, Tablet, [facility]/pharmacy #[id number], Partial fill upon patient request [...] Refills, Maintenance, 11/28/23 8:27:00 EDT, [id number], 178, cm, 11/17/23 10:55:00 EDT, Height, 113, kg, 11/17/23 10:55:00 EDT,Dry Weight Start Date: 11/28/23 Status: Ordered zinc sulfate 66 mg oral tablet 1 tablet = 66 mg, By Mouth, 3 times a day, # 42 tablet, 5 Refills, Maintenance, 03/14/24 16:16:00 EDT, Tablet, [facility]/pharmacy #[id number], Partial fill upon patient request if the prescription is for a schedule II opioid drug., 178, cm, 03/10/24 15:24:00 EDT,... 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
--- OUTSIDE RECORDS SUMMARY | 2024-03-27 15:18 | XMS_ITS | Continuity of Care Document ---
Author Organization [facility] Address [address] [place] [address]- Care Team Providers Care Building Construction Supervisor Name Role Phone Yaima Brizuela MD Primary Care Physician Encounter [facility] [place] Date(s): 06/01/19 - 06/11/19 [facility] [address] [place] [address]- [facility] Attending Physician: Jason Gonzalez Admitting Physician: Jason [...] 19:02:09 EDT Start Date: 01/22/19 Status: Ordered zolpidem 10 mg oral tablet [...]
--- OUTSIDE RECORDS SUMMARY | 2024-03-27 15:18 | XMS_ITS | Continuity of Care Document ---
Author Organization [facility] Address [address] [place] [address]- Care Team Providers Care Cupola Melter Name Role Phone Yaima Brizuela MD Primary Care Physician Encounter [facility] Date(s): 04/16/21 - 05/16/21 [facility] [address] [place], [place] [address] Allergies, Adverse Reactions, Alerts Substance [...] 3 Refills, Maintenance, 12/09/20 11:35:00 EDT, Tablet, [facility]/pharmacy #[id number], 179, cm, 11/27/20 14:03:00 EDT, Height, [...] tablet, 5 Refills, Maintenance, 02/17/21 15:40:00 EDT, [facility] # [facility], 179, cm, 02/12/21 11:02:00 [...]
--- OUTSIDE RECORDS SUMMARY | 2024-03-27 15:18 | XMS_ITS | Summary of Care ---
Author Organization [facility] Address [address] [place] [address]- Care Team Providers Care Special Duty Nurse Name Role Phone PAULINA AVILA MD Primary Care Physician Encounter [facility] [id number] Date(s): 09/15/20 - 09/15/[address] [address]- Discharge Disposition: Discharge Attending Physician: YAJAIRA WASSERMAN MD Referring Physician: YAJAIRA WASSERMAN MD
--- OUTSIDE RECORDS SUMMARY | 2024-03-27 15:18 | XMS_ITS | Summary of Care ---
Author Organization [facility] Address [address] [place] [address]- Care Team Providers Care Alfalfa Dehydrator Operator Name Role Phone PAULINA AVILA MD Primary Care Physician Encounter [facility] [id number] Date(s): 09/26/19 - 09/13/[address] [address]- [facility] Attending Physician: KONG LYLE MD Referring Physician: PAULINA AVILA MD Medications Ambien Dose: 10 mg, PO, Entered: 06/22/19 15:30:31 EST Start Date: 06/22/19 Status: Ordered Claritin See Instructions, Special Instructions: 2 pills daily, Entered: 06/22/19 15:30:51 EST Start Date: 06/22/19 Status: Ordered Cytomel Dose: 50 mcg, PO, BID, Entered: 06/22/19 15:30:23 EST Start Date: 06/22/19 Status: Ordered Folate Folate, Entered: 06/22/19 15:32:03 EST Start Date: 06/22/19 Status: Ordered Ketotifen Ketotifen See Instructions, Special Instructions: 1 pill PO twice daily, Entered: 07/06/19 15:03:45EST Start Date: 07/06/19 Status: Ordered ketotifen ophthalmic Eye Both, Q8hr, Entered: 06/22/19 15:30:42 EST Start Date: 06/22/19 Stop Date: 07/06/19 Status: Completed probiotic probiotic, Entered: 07/13/19 16:02:03 EST Start Date: 07/13/19 Status: Ordered QVAR QVAR See Instructions, Special Instructions: 3x/day, Entered: 07/13/19 16:04:09 EST Start Date: 07/13/19 Status: Ordered Symbicort Symbicort, Special Instructions: 2 puffs BID, Entered: 07/13/19 16:04:04 EST Start Date: 07/13/19 Status: Ordered Vitamin B-complex Vitamin B-complex, Entered: 06/22/19 15:32:08 EST Start Date: 06/22/19 Status: Ordered Vitamin B12 Vitamin B12, Entered: 06/22/19 15:32:13 EST Start Date: 06/22/19 Status: Ordered Vitamin B6 Vitamin B6, Entered: 06/22/19 15:32:18 EST Start Date: 06/22/19 Status: Ordered Xhance BID, Entered: 06/22/19 15:31:07 EST Start Date: 06/22/19 Stop Date: 07/06/19 Status: Completed Xolair mg, Subcutaneous, Q4wk, Entered: 06/22/19 15:31:17 EST Start Date: 06/22/19 Status: Ordered Zaditor Eye Both, Q8hr, Entered: 06/22/19 15:31:49 EST Start Date: 06/22/19 Status: Ordered ZyrTEC See Instructions, Special Instructions: 2 pills PO daily, Entered: 06/22/19 15:31:00 EST Start Date: 06/22/19 Status: Ordered
--- OUTSIDE RECORDS SUMMARY | 2024-03-27 15:18 | XMS_ITS | Summary of Care ---
Author Organization [facility] Address [address] [place] [address] Care Team Providers Care Coater Slate Name Role Phone PAULINA AVIAL MD Primary Care Physician Encounter [facility] [id number] Date(s): 10/16/20 - 10/16/[address] [facility] [address] [place] [address] Encounter Diagnosis Low back pain(Final) - Sacrococcygeal disorders, not elsewhere classified(Final) - Discharge Disposition: Home Attending Physician: KONG LYLE MD Referring Physician: PAULINA AVILA MD Medications oxyCODONE 5 mg oral tablet Dose: 5 mg, Dose Amount: 1 tab, PO, Q4hr, PRN Pain, Dispense Quantity: 8 tab, Refills: 0, Entered: 10/16/20 10:38:00 EDT, [facility]/pharmacy #[id number] Start Date: 10/16/20 Status: Ordered
--- OUTSIDE RECORDS SUMMARY | 2024-03-27 15:18 | XMS_ITS | Continuity of Care Document ---
Author Organization [facility] Address [address] [place] [address]- Care Team Providers Care Geothermal Powerplant Supervisor Name Role Phone Yaima Brizuela MD Primary Care Physician [phone] Encounter [facility] Date(s): 01/15/20 - 02/14/20 [facility] [address] [place] [address]- [facility] Allergies, Adverse Reactions, Alerts Substance Reaction [...] Refills, Soft Stop, 10/25/19 11:51:00 EDT, Shampoo, [facility]/pharmacy #[id number], 1 application Topically Daily, [...] 3 Refills, Maintenance, 10/10/19 11:17:00 EDT, Tablet, [facility]/pharmacy #[id number], 113.6, kg, 01/22/19 15:29:00 [...]
--- OUTSIDE RECORDS SUMMARY | 2024-03-27 15:18 | XMS_ITS | Continuity of Care Document ---
Author Organization [facility] Address [address] [place] [address]- Care Team Providers Care Roofing Plant Supervisor Name Role Phone Yaima Brizuela MD Primary Care Physician En[place] [facility] Date(s): 03/23/23 - 04/22/23 [facility] [address] [place], [place] [address] Allergies, Adverse Reactions, Alerts Substance Reaction Severity Status terazosin DIZZINESS Active Glutens Active Xolair anaphylaxis Active Immunizations Given and Recorded Vaccine Date Status Refusal Reason [id number] 12y+ bivalent booster vax 03/26/22 Recorded SARS-CoV-2 [...] Refills, Maintenance, 03/14/23 6:44:00 EDT, [id number], 178, cm, 01/24/23 15:44:00 EDT, Height, 109.5, [...] MOUTH AT BEDTIME NEEDED FOR INSOMNIA AURABINDO NECK SKEWER, # 30 tablet, 5 Refills, Maintenance, 02/22/23 13:51:00 EDT, [id number], AURABINDO NECK SKEWER ONLY PLEASE, 178, cm, 01/24/23 15:44:00 EDT, [...] Care Member Role: PCP Address: Address: [address] [place] [address]- Care Team Related Persons Name: AISHA ESTEVES Address: home [address] [facility] [address] [place] [address] Name: CECE ESTEVES Address: [place] [address] Name: CECE NUÑEZ Address: home [address] [place] [address]
--- OUTSIDE RECORDS SUMMARY | 2024-03-27 15:18 | XMS_ITS | Continuity of Care Document ---
Author Organization [facility] Address [address] [place] [address]- Care Team Providers Care Wood Room Supervisor Name Role Phone Yaima Brizuela MD Primary Care Physician [phone] [place] [facility] [place](s): 05/15/20 - 06/14/20 [facility] [address] [place], [place] [address] Allergies, Adverse Reactions, Alerts Substance [...] 03/02/21 12:22:00 EDT, 05/06/20 12:22:00 EST, [facility], 1 tablet... Start [...] 3 Refills, Maintenance, 10/10/19 11:17:00 EDT, Tablet, [facility]/pharmacy #[id number], 113.6, kg, 01/22/19 15:29:00 EDT, Dry Weight Start Date: 10/10/19 Status: Ordered SUMAtriptan 50 mg oral tablet 1 tablet = 50 mg, By Mouth, Daily, PRN for migraine headache, may repeat dose after 2 hours up to amaximum of 2, # 9 tablet, 1 Refills, Acute 06/29/20 14:53:00 EST, 05/29/20 14:53:00 EST, Tablet, [facility]/pharmacy #[id number], Partial fill upon patient request... [...] Acute 11/20/20 15:45:00 EDT, 11/21/19 15:42:00 EDT, [facility] # 302, 113.6, kg, 01/22/19 15:29:00 EDT, Dry Weight Start Date: 11/21/19 Stop Date: 11/20/20 Status: Ordered zolpidem 10 mg oral tablet See Instructions, TAKE ONE TABLET BY MOUTH AT BEDTIME NEEDED FOR INSOMNIA, # 30 tablet, 3 Refills, Maintenance, 04/21/20 17:29:00 EST, [facility] # [facility], 179, cm, 04/07/20 11:04:00 [...]
--- OUTSIDE RECORDS SUMMARY | 2024-03-27 15:18 | XMS_ITS | Summary of Care ---
Author Organization [facility] Address [address] [place] [address] Care Team Providers Care Structural Architect Name Role Phone PAULINA AVILA MD Primary Care Physician Encounter [facility] [id number] Date(s): 04/20/23 - 04/20/23 [facility] [address] [place] [address] Discharge Disposition: Discharge Attending Physician: KONG LYLE MD Referring Physician: PAULINA AVILA MD Allergies, Adverse Reactions, Alerts Substance Reaction Severity Status Glutens Active Wheat Active Xolair Severe Active Patient Care team information Personnel Name: PAULINA AVILA MD Address: Address: [address] [place] [address]
--- OUTSIDE RECORDS SUMMARY | 2024-03-27 15:18 | XMS_ITS | Summary of Care ---
Author Organization [facility] Address [address] [place] [address] Care Team Providers Care Design Printing Machine Setter Name Role Phone PAULINA AVILA MD Primary Care Physician [phone] Encounter [facility]CSN [id number] Date(s): 01/05/23 - 01/05/23 [facility] [address] [place] [address] Discharge Disposition: Discharge Attending Physician: KONG LYLE MD Referring Physician: PAULINA AVILA MD Allergies, Adverse Reactions, Alerts Substance Reaction Severity Status Glutens Active Wheat Active Xolair Severe Active Patient Care team information Personnel Name: PAULINA AVILA MD Address: Address: [address] [place] [address]
--- OUTSIDE RECORDS SUMMARY | 2024-03-27 15:18 | XMS_ITS | Continuity of Care Document ---
Author Organization [facility] Address [address] [facility], [address] Floor, [address] [place] [address]- Care Team Providers Care Moisture Machine Tender Name Role Phone Chata HUGHES, Yaima Reed Primary Care Physician Encounter [facility] Date(s): 12/28/23 - 01/27/24 [facility] [address], [address] [place] [address]- Allergies, Adverse Reactions, Alerts Substance Reaction Severity Status terazosin DIZZINESS Active Glutens Active Xolair anaphylaxis Active Immunizations Given and Recorded Vaccine Date Status Refusal Reason SARS-CoV-2(COVID-19)mRNA-LNP vac([id number]) 03/18/23 Recorded [id number] 12y+ bivalent booster vax 03/26/22 Recorded SARS-CoV-2 [...] 3 Refills, Maintenance, 08/03/23 13:17:00 EST, Tablet, [facility]/pharmacy #[id number], Partial fill [...] Refills, Maintenance, 11/28/23 8:27:00 EDT, [facility], 178, cm, 11/17/23 10:55:00 EDT, Height, 113, kg, 11/17/23 10:55:00 EDT,Dry Weight Start Date: 11/28/23 Status: Ordered zolpidem 10 mg oral tablet See Instructions, TAKE 1 TABLET BY MOUTH AT BEDTIME NEEDED FOR INSOMNIA AURABINDO CONSULTING PSYCHOLOGIST, # 30 tablet, 5 Refills, Maintenance, 08/25/23 12:51:00 EDT, [id number], AURABINDO CONSULTING PSYCHOLOGIST ONLY PLEASE, 178, cm, 08/11/23 10:59:00 EST, [...] Team Personnel Name: Yaima Brizuela MD Position: [facility] Physician - Primary Care Member Role: PCP Address: Address: [address] [place] [address]- [place] Care Team Related Persons Name: AISHA ESTEVES Address: home [address] [facility] [address] [place] [address] Name: CECE ESTEVES Address: [place] [address] Name: CEEC NUEÑZ Address: home [address] [place] [address]
--- OUTSIDE RECORDS SUMMARY | 2024-03-27 15:18 | XMS_ITS | Continuity of Care Document ---
Author Organization [facility] Address [address] [place] [address]- Care Team Providers Care Powder Room Attendant Name Role Phone Chata HUGHES, Yaima Reed Primary Care Physician [place] [facility] Date(s): 11/09/22 - 12/09/22 [facility] [address] [place] [address]- Allergies, Adverse Reactions, Alerts Substance Reaction Severity Status terazosin DIZZINESS Active Glutens Active Xolair anaphylaxis Active Immunizations Given and Recorded Vaccine Date Status Refusal Reason [id number] 12y+ bivalent booster vax 03/26/22 Recorded SARS-CoV-2 [...] Refills, Maintenance, 11/10/22 15:49:00 EDT, Tablet, [id number], Partial fill upon patient request if the [...] Stop, 10/25/19 11:51:00 EDT, Shampoo, [facility]/pharmacy #[id number], 1 application Topically Daily, 113.6, kg, 01/22/19 15:29:00 EDT, Dry Weight Start Date: 10/25/19 Status: Ordered ketotifen 0.025% ophthalmic solution 1 drops, Eyes, Both, Every 8 hours, # 7.5 mL, 1 Refills, Maintenance, 08/25/22 15:57:00 EDT, Solution, [facility]/pharmacy #[id number], Partial fill upon [...] MOUTH AT BEDTIME NEEDED FOR INSOMNIA AURABINDO PIT HOIST OPERATOR, # 30 tablet, 5 Refills, Maintenance, 08/23/22 15:12:00 EDT, [id number], AURABINDO PIT HOIST OPERATOR ONLY PLEASE, 177.8, cm, 06/17/22 10:52:00 [...] Team Personnel Name: Yaima Brizuela MD Position: [facility] Physician - Primary Care Member Role: PCP Address: Address: [address] [place] [address]- Care Team Related Persons Name: AISHA ESTEVES Address: home [address] [address] Name: CECE ESTEVES Address: [place] [address] Name: CECE NUÑEZ Address: home [address] [place] [address]
--- OUTSIDE RECORDS SUMMARY | 2024-03-27 15:18 | XMS_ITS | Continuity of Care Document ---
Author Organization [facility] Address [address] [place] [address]- Care Team Providers Care Clinical Rehab Specialist Name Role Phone Yaima Brizuela MD Primary Care Physician [place] [facility] [place] 06/01/19 - 06/08/19 [facility] [address] [place] [address]- [facility] Encounter Diagnosis Allergic rhinitis, unspecified(Discharge Diagnosis) - 06/01/19 Attending Physician: Vera Ramirez MD Allergies, Adverse Reactions, Alerts Substance Reaction [...] Effective Dates Health Status Clinical Service Informant Allergic rhinitis, unspecified Discharge Diagnosis 06/01/19 Vital Signs Most recent to oldest [Reference Range]: 1 Weight 116.1 kg (06/01/19 12:44 PM) Oxygen Saturation [94-100 %] 99 % (06/01/19 12:44 PM) Pulse Rate [55-90 bpm] 95 bpm *H* (06/01/19 12:44 PM) Blood Pressure [90-138/55-84 mm Hg] 118/ 76mm Hg (06/01/19 12:44 PM) Temperature [96.8-100.4 DegF] 98.7 DegF (06/01/19 12:44 PM) Blood pressure sites Arm, left (06/01/19 12:44 PM) Temperature Route Oral (06/01/19 12:44 PM) Weight Obtained Via Standing scale (06/01/19 12:44 PM)
--- OUTSIDE RECORDS SUMMARY | 2024-03-27 15:18 | XMS_ITS | Summary of Care ---
Author Organization [facility] Address [address] [place] [address] Care Team Providers Care Children'S Book Author Name Role Phone PAULINA AVILA MD Primary Care Physician [phone] Encounter [facility]CSN [id number] Date(s): 10/06/21 - 10/06/21 [facility] [address] [place] [address] Discharge Disposition: Discharge Attending Physician: KONG LYLE MD Referring Physician: PAULINA AVILA MD
--- OUTSIDE RECORDS SUMMARY | 2024-03-27 15:18 | XMS_ITS | Continuity of Care Document ---
Author Organization [facility] Address [address] [place] [address]- Care Team Providers Care Arts And Crafts Teacher Name Role Phone Chata HUGHES, Yaima Reed Primary Care Physician [phone] [place] [facility] Date(s): 09/04/21 - 10/04/21 [facility] [address] [place] [address]- Allergies, Adverse Reactions, Alerts Substance Reaction Severity [...] 5 Refills,Maintenance, 08/06/21 14:06:00 EST, [facility] # 302, 177.8, cm, 08/06/21 11:00:00 EST, Height, 116.3, kg, 07/13/21 12:56:00 EST, Dry Weight Start Date: 08/06/21 Status: Ordered zolpidem 10 mg oral tablet See Instructions, TAKE ONE TABLET BY MOUTH AT BEDTIME NEEDED FOR INSOMNIA, # 30 tablet, 5 Refills, Maintenance, 02/17/21 15:40:00 EDT, [facility] # 302, 179, cm, 02/12/21 11:02:00 [...]
--- OUTSIDE RECORDS SUMMARY | 2024-03-27 15:18 | XMS_ITS | Summary of Care ---
Author Organization [facility] Address [address] [place] [address] Care Team Providers Care Dining Room Host/Hostess Name Role Phone PAULINA AVILA MD Primary Care Physician [phone] Encounter [facility]_CSN [id number] Date(s): 09/21/19 - 09/21/19 [facility] [address] [place] [address] [facility] Encounter Diagnosis Pelvic and perineal pain(Final) - Sacrococcygeal disorders, not elsewhere classified(Final) - Discharge Disposition: Discharge Attending Physician: KONG [...]
--- OUTSIDE RECORDS SUMMARY | 2024-03-27 15:18 | XMS_ITS | Summary of Care ---
Author Organization [facility] Address [address] [place] [address]- Care Team Providers Care Acid Dipper Name Role Phone PAULINA AVILA MD Primary Care Physician [phone] Encounter [facility]_CSN [id number] Date(s): 09/18/19 - 09/18/[address] [address] [facility] Attending Physician: KONG LYLE MD Referring Physician: [...]
--- OUTSIDE RECORDS SUMMARY | 2024-03-27 15:19 | XMS_ITS | Summary of Care ---
Author Organization [facility] Address [address] [place] [address]- Care Team Providers Care Paint Maker Name Role Phone PUALINA AVILA MD Primary Care Physician [phone] Encounter [facility]CSN [id number] Date(s): 09/15/20 - 09/15/[address] [address]- Discharge Disposition: Discharge Attending Physician: KONG LYLE MD Referring Physician: PAULINA AVILA MD
--- OUTSIDE RECORDS SUMMARY | 2024-03-27 15:19 | XMS_ITS | Summary of Care ---
Author Organization [facility] Address [address] [place] [address]- Care Team Providers Care Touch Up Painter Hand Name Role Phone AUSTIN HUGHES, PAULINA Primary Care Physician [phone] Encounter [facility]CS[facility] [id number] Date(s): 08/10/21 - 07/17/[address] [address]- Attending Physician: KONG LYLE MD Referring Physician: PAULINA AVILA MD
--- OUTSIDE RECORDS SUMMARY | 2024-03-27 15:19 | XMS_ITS | Summary of Care ---
Author Organization [facility] Address [address] [place] [address] Care Team Providers Care Clam Bed Worker Name Role Phone PAULINA AVILA MD Primary Care Physician [phone] Encounter [facility]_CSN [id number] Date(s): 11/01/19 - 11/01/19 [facility] [address] [place] [address] [facility] Encounter Diagnosis Sacrococcygeal disorders, not elsewhere classified(Final) - Discharge [...]
--- OUTSIDE RECORDS SUMMARY | 2024-03-27 15:19 | XMS_ITS | Summary of Care ---
Author Organization [facility] Address [address] [place] [address]- Care Team Providers Care Rolled Glass Crosscutter Name Role Phone PAULINA AVILA MD Primary Care Physician [phone] Encounter [facility]_CSN [id number] Date(s): 09/08/20 - 09/08/[address] [address]- Encounter Diagnosis Low back pain(Final) - Sacrococcygeal disorders, not elsewhere classified(Final) - Hypermobility syndrome(Final) - Discharge Disposition: Discharge Attending Physician: GEOVANY WASSERMAN MD Referring Physician: PAULINA AVILA MD
--- OUTSIDE RECORDS SUMMARY | 2024-03-27 15:19 | XMS_ITS | Summary of Care ---
Author Organization [facility] Address [address] [place] [address] Care Team Providers Care Senior Developer Name Role Phone PAULINA AVILA MD Primary Care Physician Encounter [facility]_CSN [id number] Date(s): 12/02/20 - 12/02/20 [facility] [address] [place] [address] Encounter Diagnosis Sacrococcygeal disorders, not elsewhere classified(Final) - Low back pain(Final) - Discharge Disposition: Discharge Attending Physician: KONG LYLE MD Referring Physician: PAULINA AVILA MD
--- OUTSIDE RECORDS SUMMARY | 2024-03-27 15:19 | XMS_ITS | Summary of Care ---
Author Organization [facility] Address [address] [place] [address] Care Team Providers Care Drainlayer Name Role Phone PAULINA AVILA MD Primary Care Physician Encounter [facility]_CSN [id number] Date(s): 06/14/23 - 06/14/23 [facility] [address] [place] [address] Discharge Disposition: Discharge Attending Physician: KONG LYLE MD Referring Physician: PAULINA AVILA MD Allergies, Adverse Reactions, Alerts Substance Reaction Severity Status Glutens Active Wheat Active Xolair Severe Active Patient Care team information Personnel Name: PAULINA AVILA MD Address: Address: [address] [place] [address]
--- OUTSIDE RECORDS SUMMARY | 2024-03-27 15:19 | XMS_ITS | Summary of Care ---
Author Organization [facility] Address [address] [place] [address] Care Team Providers Care Oven Attendant Name Role Phone PAULINA AVILA MD Primary Care Physician Encounter [facility]_CSN [id number] Date(s): 03/30/23 - 03/30/23 [facility] [address] [place] [address] Discharge Disposition: Discharge Attending Physician: KONG LYLE MD Referring Physician: PAULINA AVILA MD Allergies, Adverse Reactions, Alerts Substance Reaction Severity Status Glutens Active Wheat Active Xolair Severe Active Patient Care team information Personnel Name: PAULINA AVILA MD Address: Address: [address] [place] [address]
--- OUTSIDE RECORDS SUMMARY | 2024-03-27 15:19 | XMS_ITS | Summary of Care ---
Author Organization [facility] Address [address] [place] [address] Care Team Providers Care Phytochemistry Professor Name Role Phone AUSTIN HUGHES, PAULINA Primary Care Physician Encounter [facility]_CSN [id number] Date(s): 01/15/21 - 01/15/21 [facility] [address] [place] [address] Encounter Diagnosis Spinal instabilities, sacral and sacrococcygeal region(Final) - Discharge Disposition: Home Attending Physician: KONG LYLE MD Referring Physician: PAULINA AVILA MD
--- NOTE | 2024-03-28 13:15 | A.OFFVIS_ITS ---
Intake Visit Reasons: RX Appeal Denial/Chronic Symptoms Intake Note: Patient is present for telephone follow up on Denial of PA/Appeal voriconazole Patient is still symptomatic severely Just finished Diflucan and Linezoid and still have urgency and Frequency Insurance has denied Microgen multiple times Allergies gluten Allergy (Mild, Verified 01/23/24 13:04) Unknown tamsulosin Allergy (Mild, Verified 01/23/24 13:04) Unknown omalizumab [From Xolair] Allergy (Verified 01/23/24 13:04) Anaphylaxis Beta-Blockers (Beta-Adrenergic Bloc Adverse Reaction (Severe, Verified 01/23/24 13:04) Blurry Vision alpha-blockers Adverse Reaction (Severe, Uncoded 01/23/24 13:04) Blurry Vision Medication List - Last Reconciled 03/28/24 by Wes Rubio MD ascorbic acid (vitamin C) mg PO BID atogepant (Qulipta) 30 mg PO DAILY benzonatate 100 mg PO TID PRN candesartan 4 mg PO DAILY cetirizine (All Day Allergy (cetirizine)) 20 mg PO DAILY ciclesonide 37 mcg/actuation (Zetonna) 1 inh intranasal DAILY clemastine 0 mg PO cromolyn mg PO BID cyanocobalamin (vitamin B-12) 5,000 mcg PO DAILY diclofenac sodium 1% 1 - 3 grams topical TID-QID epinephrine IM DIRECTED fluconazole 200 mg PO DAILY 5 days hydroxyzine HCl mg PO ipratropium bromide 1 - 2 sprays intranasal QID PRN ketotifen fumarate 0.025%(0.035%) 1 drp ophthalmic (eye) BID PRN lactobacillus combination no.8 (Adult Probiotic) 3,000 mmu cells PO DAILY linezolid 600 mg PO BID 14 days liothyronine (Cytomel) 50 mcg PO DAILY loratadine (Claritin) 10 mg PO DAILY norethindrone ac-eth estradiol 1.5-30 mg-mcg (Junel) 1 tab PO DAILY ondansetron 4 mg PO Q8H PRN triamcinolone acetonide 0.1% appl topical TID voriconazole 200 mg (4 x 50 mg) PO DAILY 6 days voriconazole 200 mg PO Q12H 10 days zolmitriptan 5 mg intranasal Q2H zolpidem 10 mg PO BEDTIME HPI Comments Details: Venus is a pleasant female. She is a patient of Dr. Brizuela. 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 - recurrent UTI Telemedicine Evaluation 15 min Consultation Doximity Fara Request reconsideration of medical testing through [facility] 03/29 Microgen - Enterococcus/Streptococcus - Resistant Amp/Ceph/Aug - Rickie Glabrata - trial variconazole - 10 days 10/27 Stable with vitamin C, cran caps and d-mannose - labial cyts which have pain - relatively stable regarding bladder 04/28 Itraconazole - did have interaction with migraine medications - atogepant 01/26 Microgen - EColi positive - Augmentin 2 weeks - 90% response - vaginal rickie - persistent symptoms - would like to proceed with 7 days antibiotics plus fluconazole - discussed UTI vaccine which has some availability under special access program 2021 Had manual therapy evaluation [facility] for Amos-Danlos syndrome with question of high tone pelvic issues Urinary Tract Infection: Ongoing issues with recurring UTI Completed pelvic floor PT which was beneficial with Lydia Marie 2019 They present for followup evaluation for, recurrent UTI's September 2018 - excisional surgery for endometriosis - improvement but pain on right - did have skeletonization - has been having pelvic floor therapy and accupuncture - had good PT when living in [facility] ([place]). The first infection began - complicated medical history - IC diagnosis in early - ongoing issues with endometriosis - multiple excisional surgeries - question of UTI with symptoms. Severity of the symptom(s) that is moderate. Gynecologic history: , 0, Para, 0. Therapy has included symptomatic use of antibiotics - multiple antibiotics have been tried - Aim for suppression with methenamine - using [place] [facility] approach of prolonged use of trimethoprim or fosfomycin Prior cultures have shown 05/23 Microgen - unusual path with clindamycin sensitive bacteria 03/24 microgen Enterococcus faecalis - 06/26 Microgen - Klebsiella and Enterococcus no E coli - 08/24 Klebsiella positive with resistance pattern - 01/24 Klebsiella and Enterococcus - on foscfomycin and methanamine - 02/24 E coli with Levaquin resistance, rickie - 03/26 NAD - 06/27 lactobacillus - 11/25 Enterococcus and E coli - Bactrim and Augmentin - 03/27 and 04/27 - Level 1 Prevotella Level 2 mixed predominate Lactobacillius Relevant medical history Amos-Danlos syndrome with suppressed immune system. Endometriosis. - chronic Lyme therapy - interstitial cystitis PFSH Medical History Thyroid disease Mast cell disorder H/o Lyme disease Interstitial cystitis Pelvic pain Endometriosis Complicated UTI (urinary tract infection) Surgical History Hx of colonoscopy History of esophagogastroduodenoscopy (EGD) History of surgery History of appendectomy History of laparoscopic appendectomy Family History Father History of cancer Family history of diabetes insipidus Mother No problems noted. Social History Household Members: Family Household Members Other:: Dad Alcohol intake: never Current occupational status: unemployed Review of Systems Const All systems reviewed & are unremarkable except as noted in HPI and below Reports no additional complaints Resp Reports no additional complaints GI Reports no additional complaints Reports as per HPI Musc Reports no additional complaints Physical Exam Telemedicine evaluation Appropriate responses Regular breathing rate and rhythm HEENT Head: Yes normal to inspection Ears: hearing grossly normal bilaterally Eyes General: appearance normal, both eyes and all related structures Neck Neck: Yes normal visual inspection Chest Chest palpation & inspection: normal inspection of the chest Resp Effort & Inspection: normal respiratory effort and able to speak in complete sentences Telehealth Telehealth Telehealth Platform: [facility] Location of provider rendering services: practice address Location of patient: address on file Patient Identification confirmed using: Name, : Yes Telehealth method: video Patient verbally consented to treatment: Yes Patient verbally consented to billing insurance company: Yes Patient informed of any privacy concerns related to visit: Yes Minutes spent on Phone/Video with Pt.: 25 Assessment & Plan Assessment & Plan (1) Complicated UTI (urinary tract infection): Code(s): N39.0 - Urinary tract infection, site not specified Category: Medical Plan Start the voriconazole Follow-up as planned Medications: New voriconazole administer on empty stomach, at least 1 hour before or after meal(s) 200 mg PO Q12H 10 days 20 tabs 0RF Patient Instructions: Imaging studies, laboratory and physical exam results were discussed and reviewed in detail. No major barriers to patient understanding were identified. An opportunity to ask questions regarding the treatment plan was provided. All questions were answered. The patient expressed understanding and agreement with the above treatment plan. The patient is aware they should contact our office by phone for worsening of their current condition or the appearance of new urologic symptoms. Compliance is encouraged with any medications and followup testing that is ordered. It is a privilege to participate in the urologic care of your patient. If you have any questions or concerns regarding treatment for the above conditions, or other urologic issues, please do not hesitate to contact me. The office telephone contact is [phone]. This note is constructed using voice recognition software. While every effort has been made to ensure accuracy quality improvement coordinator (rn) errors may have been included. Yours sincerely, Dr Wes Rubio MD, [facility] - Urology Providers of Expert, Compassionate Care for the Genitourinary System Coding Level of Care Code Tele Est Pt Level 4 (33353) Complex EM visit Add On G2211 Diagnoses Complicated UTI (urinary tract infection) N39.0
== END ==
PROVIDERS: PCP Internal Medicine; Visit Provider Urology
DX: N39.0 Urinary tract infection, site not specified (principal)
CPT/HCPCS: 99214; G2211

== ENCOUNTER → 2024-03-28 13:14 | Outpatient (BNVA) | payer OTHER, SELFPAY | PROVIDERS: PCP Internal Medicine; Visit Provider Urology ==

== ENCOUNTER 2024-04-25 15:52 | Outpatient (AMB) | payer OTHER, SELFPAY ==
--- NOTE | 2024-04-25 15:53 | MHC.OFFVIS ---
Intake Visit Reasons: 6m follow up Intake Note: Patient is present for telephone follow up Patient is still symptomatic severely Allergies gluten Allergy (Mild, Verified 01/23/24 13:04) Unknown tamsulosin Allergy (Mild, Verified 01/23/24 13:04) Unknown omalizumab [From Xolair] Allergy (Verified 01/23/24 13:04) Anaphylaxis Beta-Blockers (Beta-Adrenergic Bloc Adverse Reaction (Severe, Verified 01/23/24 13:04) Blurry Vision alpha-blockers Adverse Reaction (Severe, Uncoded 01/23/24 13:04) Blurry Vision HPI Comments Details: Venus is a pleasant female. She is a patient of Dr. Brizuela. 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 - recurrent UTI Telemedicine Evaluation 15 min Consultation Doximity Fara Request reconsideration of medical testing through [facility] 03/29 Microgen - Enterococcus/Streptococcus - Resistant Amp/Ceph/Aug - Rickie Glabrata - trial variconazole - 10 days 10/27 Stable with vitamin C, cran caps and d-mannose - labial cyts which have pain - relatively stable regarding bladder 04/28 Itraconazole - did have interaction with migraine medications - atogepant 01/26 Microgen - EColi positive - Augmentin 2 weeks - 90% response - vaginal rickie - persistent symptoms - would like to proceed with 7 days antibiotics plus fluconazole - discussed UTI vaccine which has some availability under special access program 2021 Had manual therapy evaluation [facility] for Amos-Danlos syndrome with question of high tone pelvic issues Urinary Tract Infection: Ongoing issues with recurring UTI Completed pelvic floor PT which was beneficial with Lydia Marie 2019 They present for followup evaluation for, recurrent UTI's September 2018 - excisional surgery for endometriosis - improvement but pain on right - 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 The first infection began - complicated medical history - IC diagnosis in early s - ongoing issues with endometriosis - multiple excisional surgeries - question of UTI with symptoms. Severity of the symptom(s) that is moderate. Gynecologic history: , 0, Para, 0. Therapy has included symptomatic use of antibiotics - multiple antibiotics have been tried - Aim for suppression with methenamine - using [place] [facility] approach of prolonged use of trimethoprim or fosfomycin Prior cultures have shown 05/23 Microgen - unusual path with clindamycin sensitive bacteria 03/24 microgen Enterococcus faecalis - 06/26 Microgen - Klebsiella and Enterococcus no E coli - 08/24 Klebsiella positive with resistance pattern - 01/24 Klebsiella and Enterococcus - on foscfomycin and methanamine - 02/24 E coli with Levaquin resistance, rickie - 03/26 NAD - 06/27 lactobacillus - 11/25 Enterococcus and E coli - Bactrim and Augmentin - 03/27 and 04/27 - Level 1 Prevotella Level 2 mixed predominate Lactobacillius Relevant medical history Amos-Danlos syndrome with suppressed immune system. Endometriosis. - chronic Lyme therapy - [facility] Medical History Thyroid disease Mast cell disorder H/o Lyme disease Interstitial cystitis Pelvic pain Endometriosis Complicated UTI (urinary tract infection) Surgical History Hx of colonoscopy History of esophagogastroduodenoscopy (EGD) History of surgery History of appendectomy History of laparoscopic appendectomy Family History Father History of cancer Family history of diabetes insipidus Mother No problems noted. Social History Household Members: Family Household Members Other:: Dad Alcohol intake: never Current occupational status: unemployed Review of Systems Const All systems reviewed & are unremarkable except as noted in HPI and below Reports no additional complaints Resp Reports no additional complaints GI Reports no additional complaints Reports as per HPI Musc Reports no additional complaints Physical Exam Telemedicine evaluation Appropriate responses Regular breathing rate and rhythm HEENT Head: Yes normal to inspection Ears: hearing grossly normal bilaterally Eyes General: appearance normal, both eyes and all related structures Neck Neck: Yes normal visual inspection Chest Chest palpation & inspection: normal inspection of the chest Resp Effort & Inspection: normal respiratory effort and able to speak in complete sentences Telehealth Telehealth Telehealth Platform: [facility] Location of provider rendering services: practice address Location of patient: address on file Patient Identification confirmed using: Name, : Yes Telehealth method: video Patient verbally consented to treatment: Yes Patient verbally consented to billing insurance company: Yes Patient informed of any privacy concerns related to visit: Yes Minutes spent on Phone/Video with Pt.: 25 Assessment & Plan Assessment & Plan (1) Rickie glabrata infection: Code(s): B37.9 - Candidiasis, unspecified Category: Medical Plan Keep follow-up Patient Instructions: Imaging studies, laboratory and physical exam results were discussed and reviewed in detail. No major barriers to patient understanding were identified. An opportunity to ask questions regarding the treatment plan was provided. All questions were answered. The patient expressed understanding and agreement with the above treatment plan. The patient is aware they should contact our office by phone for worsening of their current condition or the appearance of new urologic symptoms. Compliance is encouraged with any medications and followup testing that is ordered. It is a privilege to participate in the urologic care of your patient. If you have any questions or concerns regarding treatment for the above conditions, or other urologic issues, please do not hesitate to contact me. The office telephone contact is [phone]. This note is constructed using voice recognition software. 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 Yours sincerely, Dr Wes Rubio MD, [facility] - Urology Providers of Expert, Compassionate Care for the Genitourinary System Coding Level of Care Code Tele Est Pt Level 3 (97957) Diagnoses Rickie glabrata infection B37.9
--- OUTSIDE RECORDS SUMMARY | 2024-04-27 14:19 | XMS_ITS | Continuity of Care Document ---
Author Organization [facility] Address [address] [place] [address]- Care Team Providers Care Rivet [employer] Name Role Phone Yaima Brizuela MD Primary Care Physician Encounter [facility] [place] Date(s): 03/20/24 - 04/19/24 [facility] [address] [place], [place] [address] Encounter Type: Triage Allergies, Adverse Reactions, Alerts Substance Criticality Severity Reaction Reaction Severity Status terazosin DIZZINESS Active Glutens Active Xolair anaphylaxis Active Immunizations Given and Recorded Vaccine Date Status Refusal Reason SARS-CoV-2(COVID-19)mRNA-LNP vac([id number]) 03/18/23 Recorded [id number] 12y+ bivalent booster vax 03/26/22 Recorded SARS-CoV-2 [...] 90 tablet, 0 Refills, Maintenance, 03/12/24 9:19:00 AM EDT, Tablet, [id number], Partial fill upon patient request if the prescription is for a schedule II opioid drug., 178, cm, 03/10/24 15:24:00 EDT, Height, 112, kg, 03/08/24 11:00:00 EDT, Dry Weight Start Date: 03/12/24 Status: Ordered Quantity: 90.0 Unit: tablet Repeat number: 1 benzonatate 200 mg oral capsule 1 capsule = 200 mg, By Mouth, 3 times a day, PRN as needed for cough, for 14 days, # 42 capsule, 3 Refills, Acute 05/19/24 3:47:00 PM EST, 03/24/24 3:47:00 PM EDT, Capsule, [facility]/pharmacy #[id number], new rxplease fill, 178, cm, 03/10/24 15:24:00 EDT, Height, 112, kg, 03/08/24 11:00:00 EDT, Dry Weight Start Date: 03/24/24 Stop Date: 05/19/24 Status: Ordered Quantity: 42.0 Unit: capsule Repeat number: 4 candesartan 4 mg oral tablet 1/2 TO 1 TABLET, By Mouth, Daily, # 90 tablet, 1 Refills, Maintenance, 01/18/24 4:13:00 PM EDT, [facility]/pharmacy #[id number], 178, cm, 01/09/24 15:03:00 EDT, Height, 113.3, kg, 01/09/24 15:03:00 EDT, Dry Weight Start Date: 01/18/24 Status: Ordered Quantity: 90.0 Unit: tablet Repeat number: 2 Claritin 10 mg oral tablet 20 mg, 2, tablet, By Mouth, Daily, # 30 tablet, Refills 0, Maintenance, 01/22/19 7:00:58 PM EDT Start Date: 01/22/19 Status: Ordered Quantity: 30.0 Unit: tablet Repeat number: 1 Cranberry 0 Refills, Maintenance, 06/10/23 2:23:00 PM EST, Partial fill upon patient request if the prescription is for a schedule II opioid drug. Start Date: 06/10/23 Status: Ordered Repeat number: 1 D-mannose 2g daily D-mannose 2g daily, Refills 0, Maintenance, 07/26/23 10:59:00 AM EST, Supply Start Date: 07/26/23 Status: Ordered Repeat number: 1 Econazole Nitrate 1% topical cream PLEASE SEE ATTACHED FOR DETAILED DIRECTIONS Start Date: 03/08/24 Status: Ordered Repeat number: 1 Fish Oil By Mouth, 0 Refills, Maintenance, 06/10/23 2:23:00 PM EST, Partial fill upon patient request if the prescription is for a schedule II opioid drug. Start Date: 06/10/23 Status: Ordered Repeat number: 1 fluconazole 150 mg oral tablet 1 tablet = 150 mg, By Mouth, Daily, 0 Refills, Maintenance, 06/17/22 11:41:00 AM EST, Tablet, Partial fill upon patient request if the prescription is for a schedule II opioid drug. Start Date: 06/17/22 Status: Ordered Repeat number: 1 flunisolide 25 mcg/inh nasal spray 2 sprays = 50 mcg, Nares, Both, 2 times a day, # 25 mL, 11 Refills, Maintenance, 03/19/24 10:58:00 AM EDT, [facility]/pharmacy #[id number], Partial fill upon patient request if the prescription is for a schedule II opioid drug., 2 sprays Nares, Both 2 times a day, 178, cm, 03/10/24 15:24:00 EDT, Height, 112, kg, 03/08/24 11:00:00 EDT, Dry Weight Start Date: 03/19/24 Status: Ordered Quantity: 25.0 Unit: mL Repeat number: 12 Indication: Other allergic rhinitis Folic Acid = 100 mcg, Daily, 0 Refills, Maintenance, 01/22/19 7:02:04 PM EDT Start Date: 01/22/19 Status: Ordered Repeat number: 1 hydrOXYzine hydrochloride 25 mg oral tablet 1 capsule, By Mouth, Daily at bedtime, PRN for itching, # 40 capsule, 0 Refills, Maintenance, 12/03/21 11:40:00 AM EDT, Capsule, Partial fill upon patient request if the prescription is for a scheduleII opioid drug. Start Date: 12/03/21 Stop Date: 12/13/21 Status: Ordered Quantity: 40.0 Unit: capsule Repeat number: 1 ipratropium nasal 21 mcg/inh spray 0 Refills, Maintenance, 06/01/19 12:48:00 PM EST Start Date: 06/01/19 Status: Ordered Repeat number: 07/05 oral tablet 0 Refills, Maintenance, 07/16/21 10:45:00 AM EST, Partial fill upon patient request if the prescription is for a schedule II opioid drug. Start Date: 07/16/21 Status: Ordered Repeat number: 1 ketotifen 0.025% ophthalmic solution 1 drops, Eyes, Both, Every 8 hours, # 7.5 mL, 1 Refills, Maintenance, 08/25/22 3:57:00 PM EDT, Solution, [id number], Partial fill upon patient request if the prescription is for a schedule II opioid drug., 1 drops Eyes, Both Every 8 hours, 177.8, cm, 06/17/22 10:52:00 EST, Height, 116.3, kg,07/13/21 12:56:00 EST, Dry Weight Start Date: 08/25/22 Status: Ordered Quantity: 7.5 Unit: mL Repeat number: 2 liothyronine 25 mcg oral tablet See Instructions, TAKES 4 TABS BY Mouth Daily, 0 Refills, Maintenance, 03/05/19 3:16:09 PM EDT, Tablet Start Date: 03/05/19 Status: Ordered Repeat number: 1 meloxicam 15 mg oral tablet 1 tablet = 15 mg, By Mouth, Daily, # 14 tablet, 0 Refills, Maintenance, 03/27/24 5:10:00 PM EDT, Tablet, [id number], Partial fill upon patient request if the prescription is for a schedule IIopioid drug., 178, cm, 03/10/24 15:24:00 EDT, Height, 112, kg, 03/08/24 11:00:00 EDT, Dry Weight Start Date: 03/27/24 Stop Date: 04/10/24 Status: Ordered Quantity: 14.0 Unit: tablet Repeat number: 1 ondansetron 4 mg oral tablet, disintegrating DISSOLVE 1 TABLET IN MOUTH EVERY 8 HOURS NEEDED FOR NAUSEA AND VOMITING (INS ONLY COVERS 1 DAILY) Start Date: 06/17/22 Status: Ordered Repeat number: 1 Probiotic Formula 1 capsule, By Mouth, Daily, 0 Refills, Maintenance, 01/22/19 7:02:57 PM EDT Start Date: 01/22/19 Status: Ordered Repeat number: 1 Qulipta 30 mg oral tablet 1 tablet = 30 mg, By Mouth, Daily, # 90 tablet, 3 Refills, Maintenance, 08/03/23 1:17:00 PM EST, Tablet, [id number], Partial fill upon patient request if the prescription is for a schedule II opioid drug., 178, cm, 07/26/23 10:49:00 EST, Height, 109.5, kg, 11/09/22 21:34:00 EDT, Dry Weight Start Date: 08/03/23 Stop Date: 07/28/24 Status: Ordered Quantity: 90.0 Unit: tablet Repeat number: 4 Tessalon Perles = 100 mg, By Mouth, 3 times a day, 0 Refills, Maintenance, 12/04/19 9:43:00 AM EDT Start Date: 12/04/19 Status: Ordered Repeat number: 1 Vitamin B Complex oral tablet, extended release By Mouth, Daily, 0 Refills, Maintenance, 07/26/23 11:00:00 AM EST, Partial fill upon patient requestif the prescription is for a schedule II opioid drug. Start Date: 07/26/23 Status: Ordered Repeat number: 1 Vitamin B12 = 5,000 mcg, 0 Refills, Maintenance, 01/22/19 7:02:09 PM EDT Start Date: 01/22/19 Status: Ordered Repeat number: 1 Vitamin C 1000 mg oral tablet 1 tablet = 1,000 mg, By Mouth, 2 times a day, 0 Refills, Maintenance, 04/21/21 11:00:00 AM EST, Partial fill upon patient request if the prescription is for a schedule II opioid drug. Start Date: 04/21/21 Status: Ordered Repeat number: 1 Vitamin D3 10,000 intl units oral capsule 1 capsule = 250 mcg, By Mouth, Every week, # 5 capsule, 0 Refills, Maintenance, 06/10/23 2:22:00 PM EST, Capsule, Partial fill upon patient request if the prescription is for a schedule II opioid drug. Start Date: 06/10/23 Status: Ordered Quantity: 5.0 Unit: capsule Repeat number: 1 Vitamin K1 100mcg daily, 0 Refills, Maintenance, 10/24/19 3:37:00 PM EDT Start Date: 10/24/19 Status: Ordered Repeat number: 1 Zetonna 37 mcg/inh nasal aerosol See Instructions, USE 1 SPRAYS IN BOTH NARES DAILY, # 6.1 each, 11 Refills, Maintenance, 11/28/23 8:27:00 AM EDT, [facility] STORE [id number], 178, cm, 11/17/23 10:55:00 EDT, Height, 113, kg, 11/17/23 10:55:00 EDT, Dry Weight Start Date: 11/28/23 Status: Ordered Quantity: 6.1 Unit: each Repeat number: 1 zinc sulfate 66 mg oral tablet 1 tablet = 66 mg, By Mouth, 3 times a day, # 42 tablet, 5 Refills, Maintenance, 03/14/24 4:16:00 PM EDT, Tablet, [id number], Partial fill upon patient request if the prescription is for a schedule II opioid drug., 178, cm, 03/10/24 15:24:00 EDT, Height, 112, kg, 03/08/24 11:00:00 EDT, Dry Weight Start Date: 03/14/24 Stop Date: 06/06/24 Status: Ordered Quantity: 42.0 Unit: tablet Repeat number: 6 zolpidem 10 mg oral tablet See Instructions, TAKE 1 TABLET BY MOUTH AT BEDTIME NEEDED FOR INSOMNIA 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 (Rx order must be sent to pharmacy ahead of time due to need for special order), # 30 tablet, 5 Refills, Maintenance, 02/07/24 1:20:00 PM EDT, [id number], 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 ONLY PLEASE, 178,cm, 01/09/24 15:03:00 EDT, Height, 113.3, kg, 01/09/24 15:03:00 EDT, Dry Weight Start Date: 02/07/24 Status: Ordered Quantity: 30.0 Unit: tablet Repeat number: 6 ZyrTEC 10 mg oral tablet 2 tablet = 20 mg, By Mouth, Daily, # 30 tablet, 0 Refills, Maintenance, 01/22/19 7:00:54 PM EDT, Tablet Start Date: 01/22/19 Status: Ordered Quantity: 30.0 Unit: tablet Repeat number: 1 Problem List Condition Confirmation Course Effective Dates [...] 100 in lifetime) entered on: 05/14/21 Sex Sex Representation Female (finding) Patient Care team information Care Team Personnel Name: Yaima Brizuela MD Position: [facility] Physician - Primary Care Member Role: PCP Address: [address] [place] [address] Telecom: Care Team Related Persons Name: AISHA ESTEVES Name: CECE ESTEVES Name: CECE NUÑEZ Insurance Providers Guarantor name: NITA ESTEVES Health Plan Information #: 1 Payer: [employer] Member Number: NA Policy Number: NA Group Number: NA
--- OUTSIDE RECORDS SUMMARY | 2024-04-27 14:19 | XMS_ITS | Continuity of Care Document ---
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 Machine Operator Name Role Phone Chata HUGHES, Yaima Reed Primary Care Physician [phone] Encounter [facility] [place] [id number] Date(s): 03/14/24 - 04/13/24 [facility] [address] [place] [address]- Allergies, Adverse Reactions, Alerts Substance Reaction Severity Status terazosin DIZZINESS Active Glutens Active Xolair anaphylaxis Active Immunizations Given and Recorded Vaccine Date Status Refusal Reason SARS-CoV-2(COVID-19)mRNA-LNP vac([id number]) 03/18/23 Recorded [id number] 12y+ bivalent booster vax 03/26/22 Recorded SARS-CoV-2 [...] Refills, Maintenance, 03/12/24 9:19:00 EDT, Tablet, [id number], Partial fill upon patient request if... Start Date: 03/12/24 Status: Ordered benzonatate 200 mg oral capsule 1 capsule = 200 mg, By Mouth, 3 times a day, PRN as needed for cough, for 14 days, # 42 capsule, 3 Refills, Acute 05/19/24 15:47:00 EST, 03/24/24 15:47:00 EDT, Capsule, [facility]/pharmacy #[id number], new rx please fill, 178, cm, 03/10/24 15:24:00 EDT, Height, 11... Start Date: 03/24/24 Stop Date: 05/19/24 Status: Ordered candesartan 4 mg oral tablet 1/2 TO 1 TABLET, By Mouth, Daily, # 90 tablet, 1 Refills, Maintenance, 01/18/24 16:13:00 EDT, [facility]/pharmacy #[id number], 178, cm, 01/09/24 15:03:00 EDT, [...] mL, 11 Refills, Maintenance, 03/19/24 10:58:00 EDT, [facility]/pharmacy #[id number], Partial fill upon patient [...] EDT, Tablet Start Date: 03/05/19 Status: Ordered meloxicam 15 mg oral tablet 1 tablet = 15 mg, By Mouth, Daily, # 14 tablet, 0 Refills, Maintenance, 03/27/24 17:10:00 EDT, Tablet, [facility]/pharmacy #[id number], Partial fill upon patient request if the prescription is for a schedule II opioid drug., 178, cm, 03/10/24 15:24:00 EDT, Height,... Start Date: 03/27/24 Stop Date: 04/10/24 Status: Ordered ondansetron 4 mg oral tablet, [...] 3 Refills, Maintenance, 08/03/23 13:17:00 EST, Tablet, [facility]/pharmacy #[id number], Partial fill [...] Refills, Maintenance, 11/28/23 8:27:00 EDT, [facility], 178, cm, 11/17/23 10:55:00 EDT, Height, 113, kg, 11/17/23 10:55:00 EDT,Dry Weight Start Date: 11/28/23 Status: Ordered zinc sulfate 66 mg oral tablet 1 tablet = 66 mg, By Mouth, 3 times a day, # 42 tablet, 5 Refills, Maintenance, 03/14/24 16:16:00 EDT, Tablet, [facility]/pharmacy #[id number], Partial fill upon patient request if the prescription is for a schedule II opioid drug., 178, cm, 03/10/24 15:24:00 EDT,... 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
--- OUTSIDE RECORDS SUMMARY | 2024-04-27 14:20 | XMS_ITS | Continuity of Care Document ---
Author Organization [facility] Address [address] [place] [address]- Care Team Providers Care Manager Latin Name Role Phone Yaima Brizuela MD Primary Care Physician [phone] [place] [facility] 03/06/24 - 04/05/24 [facility] [address] [place] [address]- Allergies, Adverse Reactions, Alerts Substance Reaction Severity Status terazosin DIZZINESS Active Glutens Active Xolair anaphylaxis Active Immunizations Given and Recorded Vaccine Date Status Refusal Reason SARS-CoV-2(COVID-19)mRNA-LNP vac([id number]) 03/18/23 Recorded [id number] 12y+ bivalent booster vax 03/26/22 Recorded SARS-CoV-2 [...] Refills, Maintenance, 03/12/24 9:19:00 EDT, Tablet, [id number], Partial fill upon patient request if... Start Date: 03/12/24 Status: Ordered benzonatate 200 mg oral capsule 1 capsule = 200 mg, By Mouth, 3 times a day, PRN as needed for cough, for 14 days, # 42 capsule, 3 Refills, Acute 12/14/24 15:47:00 EST, 03/24/24 15:47:00 EDT, Capsule, [facility]/pharmacy #[id number], new rx please fill, 178, cm, 03/10/24 15:24:00 EDT, Height, 11... Start Date: 03/24/24 Stop Date: 05/19/24 Status: Ordered candesartan 4 mg oral tablet 1/2 TO 1 TABLET, By Mouth, Daily, # 90 tablet, 1 Refills, Maintenance, 01/18/24 16:13:00 EDT, [facility]/pharmacy #[id number], 178, cm, 01/09/24 15:03:00 EDT, [...] mL, 11 Refills, Maintenance, 03/19/24 10:58:00 EDT, [id number], Partial fill upon patient request [...] 0 Refills, Maintenance, 03/27/24 17:10:00 EDT, Tablet, [facility]/pharmacy #0859, Partial fill upon patient [...] 3 Refills, Maintenance, 08/03/23 13:17:00 EST, Tablet, [facility]/pharmacy #0859, Partial fill upon patient [...] Refills, Maintenance, 11/28/23 8:27:00 EDT, [facility], 178, cm, 11/17/23 10:55:00 EDT, Height, 113, kg, 11/17/23 10:55:00 EDT,Dry Weight Start Date: 11/28/23 Status: Ordered zinc sulfate 66 mg oral tablet 1 tablet = 66 mg, By Mouth, 3 times a day, # 42 tablet, 5 Refills, Maintenance, 03/14/24 16:16:00 EDT, Tablet, [facility]/pharmacy #[id number], Partial fill upon patient request if the prescription is for a schedule II opioid drug., 178, cm, 03/10/24 15:24:00 EDT,... 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
--- OUTSIDE RECORDS SUMMARY | 2024-04-27 14:20 | XMS_ITS | Continuity of Care Document ---
Author Organization [facility] Address [address] [place] [address]- Care Team Providers Care Technical Healthcare Consultant Name Role Phone Chata HUGHES, Yaima Reed Primary Care Physician Encounter [facility] [place] Date(s): 03/07/24 - 04/06/24 [facility] [address] [place] [address]- Allergies, Adverse Reactions, Alerts Substance Reaction Severity Status terazosin DIZZINESS Active Glutens Active Xolair anaphylaxis Active Immunizations Given and Recorded Vaccine Date Status Refusal Reason SARS-CoV-2(COVID-19)mRNA-LNP vac([id number]) 03/18/23 Recorded [id number] 12y+ bivalent booster vax 03/26/22 Recorded SARS-CoV-2 [...] Refills, Maintenance, 03/12/24 9:19:00 EDT, Tablet, [id number], Partial fill upon patient request if... 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
--- OUTSIDE RECORDS SUMMARY | 2024-04-27 14:21 | XMS_ITS | Continuity of Care Document ---
Author Organization [facility] Address [address] [facility], [address] Floor, [address] [place] [address]- Care Team Providers Care Well Testing Operator Name Role Phone Yaima Brizuela MD Primary Care Physician [phone] Encounter [facility] [place] Date(s): 03/12/24 - 04/11/24 [facility] [address] [facility] [address], [address] [place] [address]- Allergies, Adverse Reactions, Alerts Substance Reaction Severity Status terazosin DIZZINESS Active Glutens Active Xolair anaphylaxis Active Immunizations Given and Recorded Vaccine Date Status Refusal Reason SARS-CoV-2(COVID-19)mRNA-LNP vac([id number]) 03/18/23 Recorded [id number] 12y+ bivalent booster vax 03/26/22 Recorded SARS-CoV-2 [...] Refills, Maintenance, 03/12/24 9:19:00 EDT, Tablet, [id number], Partial fill upon patient request if... Start Date: 03/12/24 Status: Ordered benzonatate 200 mg oral capsule 1 capsule = 200 mg, By Mouth, 3 times a day, PRN as needed for cough, for 14 days, # 42 capsule, 3 Refills, Acute 05/19/24 15:47:00 EST, 03/24/24 15:47:00 EDT, Capsule, [facility]/pharmacy #[id number], new rx please fill, 178, cm, 03/10/24 15:24:00 EDT, Height, 11... Start Date: 03/24/24 Stop Date: 05/19/24 Status: Ordered candesartan 4 mg oral tablet 1/2 TO 1 TABLET, By Mouth, Daily, # 90 tablet, 1 Refills, Maintenance, 01/18/24 16:13:00 EDT, [facility]/pharmacy #[id number], 178, cm, 01/09/24 15:03:00 EDT, Height, [...] Maintenance, 08/25/22 15:57:00 EDT, Solution, [facility]/pharmacy #[id number], Partial fill upon patient request if [...] 0 Refills, Maintenance, 03/27/24 17:10:00 EDT, Tablet, [id number], Partial fill upon [...] Maintenance, 08/03/23 13:17:00 EST, Tablet, [facility]/pharmacy #[id number], Partial fill upon patient request if [...] Refills, Maintenance, 11/28/23 8:27:00 EDT, [facility], 178, cm, 11/17/23 10:55:00 EDT, Height, 113, kg, 11/17/23 10:55:00 EDT,Dry Weight Start Date: 11/28/23 Status: Ordered zinc sulfate 66 mg oral tablet 1 tablet = 66 mg, By Mouth, 3 times a day, # 42 tablet, 5 Refills, Maintenance, 03/14/24 16:16:00 EDT, Tablet, [facility]/pharmacy #[id number], Partial fill upon patient request if the prescription is for a schedule II opioid drug., 178, cm, 03/10/24 15:24:00 EDT,... 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
--- OUTSIDE RECORDS SUMMARY | 2024-04-27 14:22 | XMS_ITS | Continuity of Care Document ---
Author Organization [facility] Address [address] [place] [address]- Care Team Providers Care Detail Supervisor Name Role Phone Chata HUGHES, Yaima Reed Primary Care Physician Encounter [facility] [place] ACCT R [id number] Date(s): 03/12/24 - 04/11/24 [facility] [address] [place] [address]- Allergies, Adverse Reactions, Alerts Substance Reaction Severity Status terazosin DIZZINESS Active Glutens Active Xolair anaphylaxis Active Immunizations Given and Recorded Vaccine Date Status Refusal Reason SARS-CoV-2(COVID-19)mRNA-LNP vac([id number]) 03/18/23 Recorded [id number] 12y+ bivalent booster vax 03/26/22 Recorded SARS-CoV-2 [...] Refills, Maintenance, 03/12/24 9:19:00 EDT, Tablet, [id number], Partial fill upon patient request if... Start Date: 03/12/24 Status: Ordered benzonatate 200 mg oral capsule 1 capsule = 200 mg, By Mouth, 3 times a day, PRN as needed for cough, for 14 days, # 42 capsule, 3 Refills, Acute 05/19/24 15:47:00 EST, 03/24/24 15:47:00 EDT, Capsule, [facility]/pharmacy #[id number], new rx please fill, 178, cm, 03/10/24 15:24:00 EDT, Height, 11... Start Date: 03/24/24 Stop Date: 05/19/24 Status: Ordered candesartan 4 mg oral tablet 1/2 TO 1 TABLET, By Mouth, Daily, # 90 tablet, 1 Refills, Maintenance, 01/18/24 16:13:00 EDT, [facility]/pharmacy #0859, 178, cm, 01/09/24 15:03:00 [...] mL, 11 Refills, Maintenance, 03/19/24 10:58:00 EDT, [facility]/pharmacy #0859, Partial fill upon [...] 1 Refills, Maintenance, 08/25/22 15:57:00 EDT, Solution, [facility]/pharmacy #0859, Partial fill upon [...] 0 Refills, Maintenance, 03/27/24 17:10:00 EDT, Tablet, [facility]/pharmacy #0859, Partial [...] 3 Refills, Maintenance, 08/03/23 13:17:00 EST, Tablet, [facility]/pharmacy #0859, Partial fill [...] Refills, Maintenance, 11/28/23 8:27:00 EDT, [facility], 178, cm, 11/17/23 10:55:00 EDT, Height, 113, kg, 11/17/23 10:55:00 EDT,Dry Weight Start Date: 11/28/23 Status: Ordered zinc sulfate 66 mg oral tablet 1 tablet = 66 mg, By Mouth, 3 times a day, # 42 tablet, 5 Refills, Maintenance, 03/14/24 16:16:00 EDT, Tablet, [facility]/pharmacy #0859, Partial fill upon patient request if the prescription is for a schedule II opioid drug., 178, cm, 03/10/24 15:24:00 EDT,... 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
--- OUTSIDE RECORDS SUMMARY | 2024-04-27 14:23 | XMS_ITS | Continuity of Care Document ---
Author Organization [facility] Address [address] [place] [address]- Care Team Providers Care Fitting Room Associate Name Role Phone Chata HUGHES, Yaima Reed Primary Care Physician Encounter [facility] Date(s): 06/29/21 - 07/29/21 [facility] [address] [place] [address]- Allergies, Adverse Reactions, Alerts Substance Reaction Severity Status Glutens Active Xolair anaphylaxis Active Immunizations Given and Recorded Vaccine Date Status Refusal Reason SARS-CoV-2 (COVID-19) mRNA BNT-162b2 vac 1 06/25/21 Recorded 1Result Comment: 3rd dose Medications B [...] 3 Refills, Maintenance, 12/09/20 11:35:00 EDT, Tablet, [facility]/pharmacy #[id number], 179, cm, 11/27/20 14:03:00 [...] tablet, 5 Refills, Maintenance, 02/17/21 15:40:00 EDT, [facility] # [id number], 179, cm, 02/12/21 11:02:00 [...]
--- OUTSIDE RECORDS SUMMARY | 2024-04-27 14:24 | XMS_ITS | Continuity of Care Document ---
Author Organization [facility] Address [address] [place] [address]- Care Team Providers Care Paper Bag Making Machinist Name Role Phone Yaima Brizuela MD Primary Care Physician Encounter [facility] [place] Date(s): 03/23/24 - 04/22/24 [facility] [address] [place], [place] [address] Encounter Type: Triage Allergies, Adverse Reactions, Alerts Substance Criticality Severity Reaction Reaction Severity Status terazosin DIZZINESS Active Glutens Active Xolair anaphylaxis Active Immunizations Given and Recorded Vaccine Date Status Refusal Reason SARS-CoV-2(COVID-19)mRNA-LNP vac([id number]) 03/18/23 Recorded [id number] 12y+ bivalent booster vax 03/26/22 Recorded SARS-CoV-2 [...] Maintenance, 03/12/24 9:19:00 AM EDT, Tablet, [id number], Partial fill upon patient request if the [...] PM EST, 03/24/24 3:47:00 PM EDT, Capsule, [facility]/pharmacy #[id number], new rxplease fill, 178, cm, 03/10/24 15:24:00 EDT, Height, 112, kg, 03/08/24 11:00:00 EDT, Dry Weight Start Date: 03/24/24 Stop Date: 05/19/24 Status: Ordered Quantity: 42.0 Unit: capsule Repeat number: 4 candesartan 4 mg oral tablet 1/2 TO 1 TABLET, By Mouth, Daily, # 90 tablet, 1 Refills, Maintenance, 01/18/24 4:13:00 PM EDT, [facility]/pharmacy #0859, 178, cm, 01/09/24 15:03:00 EDT, [...] 11 Refills, Maintenance, 03/19/24 10:58:00 AM EDT, [facility]/pharmacy #0859, Partial fill upon patient request [...] 11 Refills, Maintenance, 11/28/23 8:27:00 AM EDT, [facility] STORE [id number], 178, cm, 11/17/23 10:55:00 EDT, Height, 113, kg, 11/17/23 10:55:00 EDT, Dry Weight Start Date: 11/28/23 Status: Ordered Quantity: 6.1 Unit: each Repeat number: 1 zinc sulfate 66 mg oral tablet 1 tablet = 66 mg, By Mouth, 3 times a day, # 42 tablet, 5 Refills, Maintenance, 03/14/24 4:16:00 PM EDT, Tablet, [facility]/pharmacy #0859, Partial fill upon patient request if the prescription is for a schedule II opioid drug., 178, cm, 03/10/24 15:24:00 EDT, Height, 112, kg, 03/08/24 11:00:00 EDT, Dry Weight Start Date: 03/14/24 Stop Date: 06/06/24 Status: Ordered Quantity: 42.0 Unit: tablet Repeat number: 6 zolpidem 10 mg oral tablet See Instructions, TAKE 1 TABLET BY MOUTH AT BEDTIME 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
--- OUTSIDE RECORDS SUMMARY | 2024-04-27 14:26 | XMS_ITS | Continuity of Care Document ---
Author Organization [facility] Address [address] [place] [address]- Care Team Providers Care Makeup Artistry Instructor Name Role Phone Yaima Brizuela MD Primary Care Physician Encounter [facility] ACCT R [id number] Date(s): 03/19/24 - 04/18/24 [facility] [address] [place], [place] [address] Encounter Type: Triage Allergies, Adverse Reactions, Alerts Substance Criticality Severity Reaction Reaction Severity Status terazosin DIZZINESS Active Glutens Active Xolair anaphylaxis Active Immunizations Given and Recorded Vaccine Date Status Refusal Reason SARS-CoV-2(COVID-19)mRNA-LNP vac([id number]) 03/18/23 Recorded [id number] 12y+ bivalent booster vax 03/26/22 Recorded SARS-CoV-2 [...] Maintenance, 03/12/24 9:19:00 AM EDT, Tablet, [facility], Partial fill upon patient request if the [...] PM EST, 03/24/24 3:47:00 PM EDT, Capsule, [facility]/pharmacy #0859, new rxplease fill, 178, cm, 03/10/24 15:24:00 EDT, Height, 112, kg, 03/08/24 11:00:00 EDT, Dry Weight Start Date: 03/24/24 Stop Date: 05/19/24 Status: Ordered Quantity: 42.0 Unit: capsule Repeat number: 4 candesartan 4 mg oral tablet 1/2 TO 1 TABLET, By Mouth, Daily, # 90 tablet, 1 Refills, Maintenance, 01/18/24 4:13:00 PM EDT, [facility]/pharmacy #0859, 178, cm, 01/09/24 15:03:00 EDT, Height, [...] 11 Refills, Maintenance, 03/19/24 10:58:00 AM EDT, [facility]/pharmacy #0859, Partial fill upon patient [...] 11 Refills, Maintenance, 11/28/23 8:27:00 AM EDT, [facility] STORE 9[facility], 178, cm, 11/17/23 10:55:00 EDT, Height, 113, [...] MOUTH AT BEDTIME NEEDED 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 (Rx order must be sent to pharmacy ahead of time due to need for special order), # 30 tablet, 5 Refills, Maintenance, 02/07/24 1:20:00 PM EDT, [facility], 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 ONLY PLEASE, 178,cm, 01/09/24 15:03:00 EDT, Height, [...] team information Care Team Personnel Name: Yaima rBizuela MD Position: [facility] Physician - Primary Care Member Role: PCP Address: [address] [place] [address] Telecom: Care Team Related Persons Name: AISHA ESTEVES Name: CECE ESTEVES Name: CECE NUÑEZ Insurance Providers Guarantor name: NITA ESTEVES Health Plan Information #: 1 Payer: [employer] [place] Member Number: NA Policy Number: NA Group Number: NA
--- OUTSIDE RECORDS SUMMARY | 2024-04-27 14:27 | XMS_ITS | Continuity of Care Document ---
Author Organization [facility] Address [address] [place] [address]- Care Team Providers Care Synoptic Meteorologist Name Role Phone Yaima Brizuela MD Primary Care Physician Encounter [facility] Date(s): 03/06/24 - 04/05/24 [facility] [address] [place] [address]- Allergies, Adverse Reactions, Alerts Substance Reaction Severity Status terazosin DIZZINESS Active Glutens Active Xolair anaphylaxis Active Immunizations Given and Recorded Vaccine Date Status Refusal Reason SARS-CoV-2(COVID-19)mRNA-LNP vac([id number]) 03/18/23 Recorded [id number] 12y+ bivalent booster vax 03/26/22 Recorded SARS-CoV-2 [...] Refills, Maintenance, 03/12/24 9:19:00 EDT, Tablet, [facility], Partial fill upon patient request if... Start Date: 03/12/24 Status: Ordered benzonatate 200 mg oral capsule 1 capsule = 200 mg, By Mouth, 3 times a day, PRN as needed for cough, for 14 days, # 42 capsule, 3 Refills, Acute 12/14/24 15:47:00 EST, 03/24/24 15:47:00 EDT, Capsule, [facility]/pharmacy #0859, new rx please fill, 178, cm, 03/10/24 15:24:00 EDT, Height, 11... Start Date: 03/24/24 Stop Date: 05/19/24 Status: Ordered candesartan 4 mg oral tablet 1/2 TO 1 TABLET, By Mouth, Daily, # 90 tablet, 1 Refills, Maintenance, 01/18/24 16:13:00 EDT, [facility]/pharmacy #0859, 178, cm, 01/09/24 15:03:00 EDT, [...] 0 Refills, Maintenance, 03/27/24 17:10:00 EDT, Tablet, [facility]/pharmacy #0859, Partial fill upon [...] 3 Refills, Maintenance, 08/03/23 13:17:00 EST, Tablet, [facility]/pharmacy #0859, Partial fill upon [...] Refills, Maintenance, 11/28/23 8:27:00 EDT, [facility], 178, cm, 11/17/23 10:55:00 EDT, Height, 113, kg, 11/17/23 10:55:00 EDT,Dry Weight Start Date: 11/28/23 Status: Ordered zinc sulfate 66 mg oral tablet 1 tablet = 66 mg, By Mouth, 3 times a day, # 42 tablet, 5 Refills, Maintenance, 03/14/24 16:16:00 EDT, Tablet, [facility]/pharmacy #0859, Partial fill upon patient request if the prescription is for a schedule II opioid drug., 178, cm, 03/10/24 15:24:00 EDT,... 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
--- OUTSIDE RECORDS SUMMARY | 2024-04-27 14:28 | XMS_ITS | Continuity of Care Document ---
Author Organization [facility] Address [address] [place] [address]- Care Team Providers Care K 9 Police Officer Name Role Phone Chata HUGHES, Yaima Reed Primary Care Physician En[facility] Date(s): 03/07/24 - 04/06/24 [facility] [address] [place] [address]- Allergies, Adverse Reactions, Alerts Substance Reaction Severity Status terazosin DIZZINESS Active Glutens Active Xolair anaphylaxis Active Immunizations Given and Recorded Vaccine Date Status Refusal Reason SARS-CoV-2(COVID-19)mRNA-LNP vac([id number]) 03/18/23 Recorded [id number] 12y+ bivalent booster vax 03/26/22 Recorded SARS-CoV-2 [...] Refills, Maintenance, 03/12/24 9:19:00 EDT, Tablet, [id number], Partial fill upon patient request if... Start Date: 03/12/24 Status: Ordered benzonatate 200 mg oral capsule 1 capsule = 200 mg, By Mouth, 3 times a day, PRN as needed for cough, for 14 days, # 42 capsule, 3 Refills, Acute 05/19/24 15:47:00 EST, 03/24/24 15:47:00 EDT, Capsule, [facility]/pharmacy #0859, new rx please fill, 178, cm, 03/10/24 15:24:00 EDT, Height, 11... Start Date: 03/24/24 Stop Date: 05/19/24 Status: Ordered candesartan 4 mg oral tablet 1/2 TO 1 TABLET, By Mouth, Daily, # 90 tablet, 1 Refills, Maintenance, 01/18/24 16:13:00 EDT, [facility]/pharmacy #0859, 178, cm, 01/09/24 15:03:00 [...] mL, 11 Refills, Maintenance, 03/19/24 10:58:00 EDT, [facility]/pharmacy #0859, Partial fill upon patient [...] 1 Refills, Maintenance, 08/25/22 15:57:00 EDT, Solution, [facility]/pharmacy #0859, Partial fill upon patient [...] 0 Refills, Maintenance, 03/27/24 17:10:00 EDT, Tablet, [facility]/pharmacy #0859, Partial fill upon patient [...] 3 Refills, Maintenance, 08/03/23 13:17:00 EST, Tablet, [facility]/pharmacy #0859, Partial fill upon patient [...] Refills, Maintenance, 11/28/23 8:27:00 EDT, [facility], 178, cm, 11/17/23 10:55:00 EDT, Height, 113, kg, 11/17/23 10:55:00 EDT,Dry Weight Start Date: 11/28/23 Status: Ordered zinc sulfate 66 mg oral tablet 1 tablet = 66 mg, By Mouth, 3 times a day, # 42 tablet, 5 Refills, Maintenance, 03/14/24 16:16:00 EDT, Tablet, [facility]/pharmacy #0859, Partial fill upon patient request if the prescription is for a schedule II opioid drug., 178, cm, 03/10/24 15:24:00 EDT,... 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
--- OUTSIDE RECORDS SUMMARY | 2024-04-27 14:29 | XMS_ITS | Continuity of Care Document ---
Author Organization [facility] Address [address] [place] [address]- Care Team Providers Care Shovel Oiler Name Role Phone Yaima Brizuela MD Primary Care Physician [place] [facility] [place]s): 03/14/24 - 04/13/24 [facility] [address] [place] [address] Allergies, Adverse Reactions, Alerts Substance Reaction Severity Status terazosin DIZZINESS Active Glutens Active Xolair anaphylaxis Active Immunizations Given and Recorded Vaccine Date Status Refusal Reason SARS-CoV-2(COVID-19)mRNA-LNP vac([id number]) 03/18/23 Recorded [id number] 12y+ bivalent booster vax 03/26/22 Recorded SARS-CoV-2 [...] Refills, Maintenance, 03/12/24 9:19:00 EDT, Tablet, [facility], Partial fill upon patient request if... Start Date: 03/12/24 Status: Ordered benzonatate 200 mg oral capsule 1 capsule = 200 mg, By Mouth, 3 times a day, PRN as needed for cough, for 14 days, # 42 capsule, 3 Refills, Acute 05/19/24 15:47:00 EST, 03/24/24 15:47:00 EDT, Capsule, [facility]/pharmacy #0859, new rx please fill, 178, cm, 03/10/24 15:24:00 EDT, Height, 11... Start Date: 03/24/24 Stop Date: 05/19/24 Status: Ordered candesartan 4 mg oral tablet 1/2 TO 1 TABLET, By Mouth, Daily, # 90 tablet, 1 Refills, Maintenance, 01/18/24 16:13:00 EDT, [facility]/pharmacy #0859, 178, cm, 01/09/24 15:03:00 [...] mL, 11 Refills, Maintenance, 03/19/24 10:58:00 EDT, [facility]/pharmacy #0859, Partial fill upon patient [...] Maintenance, 08/25/22 15:57:00 EDT, Solution, [facility]/pharmacy #0859, Partial fill upon patient [...] 0 Refills, Maintenance, 03/27/24 17:10:00 EDT, Tablet, [facility]/pharmacy #0859, Partial fill upon patient [...] Refills, Maintenance, 08/03/23 13:17:00 EST, Tablet, [facility]/pharmacy #0859, Partial fill upon patient [...] Refills, Maintenance, 11/28/23 8:27:00 EDT, [facility], 178, cm, 11/17/23 10:55:00 EDT, Height, 113, kg, 11/17/23 10:55:00 EDT,Dry Weight Start Date: 11/28/23 Status: Ordered zinc sulfate 66 mg oral tablet 1 tablet = 66 mg, By Mouth, 3 times a day, # 42 tablet, 5 Refills, Maintenance, 03/14/24 16:16:00 EDT, Tablet, [facility]/pharmacy #0859, Partial fill upon patient request if the prescription is for a schedule II opioid drug., 178, cm, 03/10/24 15:24:00 EDT,... 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
--- OUTSIDE RECORDS SUMMARY | 2024-04-27 14:30 | XMS_ITS | Continuity of Care Document ---
Author Organization [facility] Address [address] [place] [address]- Care Team Providers Care Repairer Handtools Name Role Phone Chata HUGHES, Yaima Reed Primary Care Physician Encounter [facility] ACCT R [id number] Date(s): 03/08/24 - 04/07/24 [facility] [address] [place] [address]- Allergies, Adverse Reactions, Alerts Substance Reaction Severity Status terazosin DIZZINESS Active Glutens Active Xolair anaphylaxis Active Immunizations Given and Recorded Vaccine Date Status Refusal Reason SARS-CoV-2(COVID-19)mRNA-LNP vac([id number]) 03/18/23 Recorded [id number] 12y+ bivalent booster vax 03/26/22 Recorded SARS-CoV-2 [...] Refills, Maintenance, 03/12/24 9:19:00 EDT, Tablet, [facility], Partial fill upon patient request if... Start Date: 03/12/24 Status: Ordered benzonatate 200 mg oral capsule 1 capsule = 200 mg, By Mouth, 3 times a day, PRN as needed for cough, for 14 days, # 42 capsule, 3 Refills, Acute 05/19/24 15:47:00 EST, 03/24/24 15:47:00 EDT, Capsule, [facility]/pharmacy #0859, new rx please fill, 178, cm, 03/10/24 15:24:00 EDT, Height, 11... Start Date: 03/24/24 Stop Date: 05/19/24 Status: Ordered candesartan 4 mg oral tablet 1/2 TO 1 TABLET, By Mouth, Daily, # 90 tablet, 1 Refills, Maintenance, 01/18/24 16:13:00 EDT, [facility]/pharmacy #0859, 178, cm, 01/09/24 15:03:00 EDT, Height, [...] mL, 11 Refills, Maintenance, 03/19/24 10:58:00 EDT, [facility]/pharmacy #0859, Partial fill upon [...] Maintenance, 08/25/22 15:57:00 EDT, Solution, [facility]/pharmacy #0859, Partial fill upon [...] 0 Refills, Maintenance, 03/27/24 17:10:00 EDT, Tablet, [facility]/pharmacy #0859, Partial [...] Maintenance, 08/03/23 13:17:00 EST, Tablet, [facility]/pharmacy #0859, Partial [...] Refills, Maintenance, 11/28/23 8:27:00 EDT, [facility], 178, cm, 11/17/23 10:55:00 EDT, Height, 113, kg, 11/17/23 10:55:00 EDT,Dry Weight Start Date: 11/28/23 Status: Ordered zinc sulfate 66 mg oral tablet 1 tablet = 66 mg, By Mouth, 3 times a day, # 42 tablet, 5 Refills, Maintenance, 03/14/24 16:16:00 EDT, Tablet, [facility]/pharmacy #0859, Partial fill upon patient request if the prescription is for a schedule II opioid drug., 178, cm, 03/10/24 15:24:00 EDT,... 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
== END 2024-04-25 16:30 | disposition home or self-care (01) ==
LOC: HO.HUSH 15:52
PROVIDERS: PCP Internal Medicine; Visit Provider Urology
DX: B37.9 Candidiasis, unspecified (principal)
CPT/HCPCS: 99213

== ENCOUNTER 2024-07-23 08:04 | Outpatient (REF) | payer OTHER, SELFPAY ==
--- NOTE | ~2024-07-23 | US_ITS ---
EXAMINATION: US ABDOMEN LIMITED WITH LIVER ELASTOGRAPHY CLINICAL INFORMATION: Liver lesion. COMPARISON: MRI abdomen 05/17/2022, 04/28/2020. Abdominal ultrasound 04/18/2019. TECHNIQUE: Real-time imaging of the abdominal viscera. Noninvasive ultrasound liver fibrosis assessment is performed using [employer] ElastPQ point quantification shear wave elastography (2D-SWE) with a C5-2 MHz transducer. Multiple elastography samples are obtained. FINDINGS: PANCREAS: The visualized pancreatic head and body are normal in appearance. The remainder of the pancreas is obscured from visualization by the overlying bowel gas. LIVER: The liver demonstrates normal size, contour and echogenicity. No focal lesion or intrahepatic biliary duct dilatation. The right lobe measures 20.4 cm in length. The left lobe measures 7.5 cm in length. Portal flow is towards the liver (hepatopetal). Shear wave liver elastography median stiffness is 1.49 m/s (reference: normal median stiffness is 1.3 m/s or less). IQR/median stiffness to assess sampling precision is 0.24 (reference: good quality data set is IQR/median stiffness of 0.15 or less). GALLBLADDER: The gallbladder is physiologically distended without evidence of stones, sludge, polyps, wall thickening or pericholecystic fluid. COMMON BILE DUCT: Normal in caliber measuring 0.2 cm in diameter. RIGHT KIDNEY: No hydronephrosis. No renal calculi or focal parenchymal lesions. The kidney measures 11.3 cm in maximum dimension. FREE FLUID: None. US/US abdomen enamorado w elastography IMPRESSION: 1. Mildly prominent right hepatic lobe, possibly a Graeme's lobe. Liver otherwise normal. No abnormal echogenicity or focal lesion. 2. Liver elastography: Although measurements appear to rule out compensated advanced chronic liver disease, there is statistical variability of the sampling which decreases accuracy. 3. Remainder of the examination is normal. REFERENCE: Society of Radiologists in Ultrasound Liver Stiffness Thresholds (2020): LIVER STIFFNESS THRESHOLDS: *Liver Stiffness equal or less than 1.3 m/s: High probability of being normal. *Liver Stiffness less than 1.7 m/s: In the absence of other known clinical signs, rules out compensated advanced chronic liver disease. *Liver Stiffness 1.7-2.1 m/s: Suggestive of compensated advanced chronic liver disease but need further test for confirmation. *Liver Stiffness over 2.1 m/s: Rules in compensated advanced chronic liver disease. *Liver Stiffness over 2.4 m/s: Suggestive of clinically significant portal hypertension. QUALITY OF DATA SET: *IQR/Median value equal or less than 0.15 implies a quality data set. *IQR/Median value over 0.15 implies a poor quality data set. SIGNIFICANT CHANGE FROM PRIOR EXAM: Significant change if liver stiffness measurement is 10% or greater from prior exam. OTHER CONSIDERATIONS: The stage of liver fibrosis may be overestimated in the setting of acute hepatitis, liver inflammation, elevated liver function tests, hepatic vascular congestion, obstructive cholestasis, non-fasting state, and infiltrative diseases such as amyloidosis and lymphoma. In some patients with NAFLD, the liver stiffness thresholds for compensated advanced chronic liver disease may be lower. In causes other than viral hepatitis and NAFLD, liver stiffness thresholds are not well established. Electronically signed by: Jay Jay Cooley MD 07/24/2024 08:36 AM [facility]
--- OUTSIDE RECORDS SUMMARY | 2024-07-23 08:06 | XMS_ITS | Data Portability ---
Author Organization [facility] Address [address] [place] [address] Assessment Encounter Date Assessment Date Assessment LastModified by Organization Details LastModified Time 04/05/2022 04/05/2022 Orthotic Goals: Yes?Provid e Support Yes??Reduce Pain Other (please specify): The patient will be seen on an as needed basis. Orthosis: is in stock and delivered today. [email or web address] Not available 04/05/2022 13:37:04 Plan of Treatment Reminders Order Date Submit Date Provider Last Modified By Organization Details Last Modified Time Details Appointments None record ed. Lab None record ed. Referral None record ed. Procedures None record ed. Surgeries None record ed. Imaging None record ed. Medication Orders None record ed. Patient TargetsNo targets recorded. Patient Instructions Encounter Date Encounter Id Patient Instructions Last Modified By Organization Details Last Modified Time 04/05/2022 [id number] [email or web address] Not available 04/05/2022 13:39:04 Reason for Referral None Reported. Procedures Surgical History Date Name Laterality Status Provider Name and Address Organization Details Recorded Time OTS Procedures completed MARTÍN Henning [address], [place], [phone], [facility] 04/05/2022 13:36:51 Imaging Results None recorded. Procedure Notes None recorded. Medical Equipment None Reported. Vitals None Recorded Social History None recorded. Functional Status None recorded. Mental Status None recorded. Family History Nothing Reported. Medical History No medical history recorded. Gynecological HistoryNo gynecological history recorded. Obstetrics History GPAL:G 0 P 0 0 0 0 Past Encounters Encounter ID Performer Location Encounter Start Date Encounter Closed Date Diagnosis/Indication Diagnosis SNOMED-CT Code Diagnosis ICD10 Code Diagnosis Note [id number] MARTÍN Henning [place] [address] [place] [address] 04/05/2022 12:12:38 04/05/2022 13:46:16 Patellofemoral stress syndrome [id number] M22.2X2 Health Concerns Section Related Observation LastModified by Organization Detai ls LastModified Time None Recorded Concern Status LastModified by Organization Details LastModified Time None Recorded Advance Directives Directive None Recorded Payers None recorded. Notes Date Note Type Note Provider Name and Address Organization Details Recorded Time 04/05/2022 text/html Venus arrives by herself today for evaluation for genutrain. Patient has history of EDS and had injections today for LLE for ongoing knee pain, per patient is related to therapy that had instigated ongoing and progressive pain. MARTÍN Henning [address], [place], [phone], [facility] 04/05/2022 13:39:16 OBGyn Episode No OBEpisode recorded.
--- OUTSIDE RECORDS SUMMARY | 2024-07-23 08:06 | XMS_ITS ---
Author Name [facility] Organization Unknown Problems Problem Status Onset Date Problem Type Date of Resoluti on Source Amos-Danlos disease active [facility]
--- OUTSIDE RECORDS SUMMARY | 2024-07-23 08:06 | XMS_ITS | Continuity of Care Document ---
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 Intractable headache(Discharge Diagnosis) - 07/09/24 Attending Physician: Yaima Brizuela MD Encounter Type: Office Visit Allergies, Adverse Reactions, Alerts Substance Criticality Severity Reaction Reaction Severity Status terazosin DIZZINESS Active Glutens Active Xolair anaphylaxis Active Immunizations Given and Recorded Vaccine Date Status Refusal Reason SARS-CoV-2(COVID-19)mRNA-LNP vac([id number]) 03/18/23 Recorded [id number] 12y+ bivalent booster vax 03/26/22 Recorded SARS-CoV-2 [...] interaction, # 90 tablet, 0 Refills, Maintenance, 04/27/24 10:13:00 AM EST, Tablet, Partial fill upon patient request if the prescription is for a schedule II opioid drug., 178, cm, 03/10/24 15:24:00 EDT, Height, 112, kg, 03/08/24 11:00:00 EDT, Dry Weight Start Date: 04/27/24 Status: Ordered Quantity: 90.0 Unit: tablet Repeat number: 1 candesartan 4 mg oral tablet 1/2 TO 1 TABLET, By Mouth, Daily, # 90 tablet, 1 Refills, Maintenance, 01/18/24 4:13:00 PM EDT, [facility]/pharmacy #[id number], 178, cm, 01/09/24 15:03:00 EDT, [...] Date: 07/26/23 Status: Ordered Repeat number: 1 diclofenac 1% topical gel 2.25 inches, Topically, 4 times a day, PRN Pain , Moderate, use dosing card to measure a dose, # 100 Gm, 2 Refills, Maintenance, 07/09/24 11:55:00 AM EST, Gel, [facility]/pharmacy #[id number], Partial fill upon patient request if the prescription is for a schedule II opioid drug., 178, cm, 07/09/24 10:49:00 EST, Height, 110.1, kg, 07/09/24 10:49:00 EST, Dry Weight Start Date: 07/09/24 Status: Ordered Quantity: 100.0 Unit: g Repeat number: 3 Econazole Nitrate 1% topical cream PLEASE SEE [...] 11 Refills, Maintenance, 03/19/24 10:58:00 AM EDT, [facility]/pharmacy #[id number], Partial fill upon patient [...] = 15 mg, By Mouth, Daily, # 15 tablet, 0 Refills, Maintenance, 06/05/24 1:50:00 PM EST, Tablet, [id number], Partial fill upon patient request if the prescription is for a schedule IIopioid drug., 178, cm, 03/10/24 15:24:00 EDT, Height, 112, kg, 03/08/24 11:00:00 EDT, Dry Weight Start Date: 06/05/24 Stop Date: 06/20/24 Status: Ordered Quantity: 15.0 Unit: tablet Repeat number: 1 meloxicam 15 mg oral tablet 1 tablet = 15 mg, By Mouth, Daily, PRN Pain , Moderate, # 30 tablet, 2 Refills, Maintenance, :12:00 PM EST, Tablet, [id number], Partial fill upon patient request if the prescription is for a schedule II opioid drug., 178, cm, 07/09/24 10:49:00 EST, Height, 110.1, kg, 07/09/24 10:49:00 EST, Dry Weight Start Date: 07/09/24 Status: Ordered Quantity: 30.0 Unit: tablet Repeat number: 3 metoclopramide 5 mg oral tablet 1 tablet = 5 mg, By Mouth, 3 times a day before meals and bedtime, for 10 days, FOR MIGRAINE/NAUSEA, # 40 tablet, 0 Refills, Acute 07/22/24 10:25:00 AM EST, 07/12/24 10:25:00 AM EST, Tablet, [facility]/pharmacy #[id number], Partial fill upon patient request if the prescription is for a schedule II opioid drug., 178, cm, 07/09/24 10:49:00 EST, Height, 110.1, kg, 07/09/24 10:49:00 EST, Dry Weight Start Date: 07/12/24 Stop Date: 07/22/24 Status: Ordered Quantity: 40.0 Unit: tablet Repeat number: 1 ondansetron 4 mg oral tablet, disintegrating DISSOLVE 1 TABLET IN MOUTH EVERY 8 HOURS NEEDED FOR NAUSEA AND VOMITING (INS ONLY COVERS 1 DAILY) Start Date: 06/17/22 Status: Ordered Repeat number: 1 Pataday Once Daily Relief 0.2% ophthalmic solution 1 drops, Eyes, Both, Daily, # 2.5 mL, 1 Refills, Maintenance, 05/10/24 1:45:00 PM EST, [facility]/pharmacy #[id number], Partial fill upon patient request if the prescription is for a schedule II opioid drug., 1 drops Eyes, Both Daily, 178, cm, 03/10/24 15:24:00 EDT, Height, 112, kg, 03/08/24 11:00:00 EDT, Dry Weight Start Date: 05/10/24 Status: Ordered Quantity: 2.5 Unit: mL Repeat number: 2 Probiotic Formula 1 capsule, By Mouth, Daily, 0 Refills, Maintenance, 01/22/19 7:02:57 PM EDT Start Date: 01/22/19 Status: Ordered Repeat number: 1 Qulipta 30 mg oral tablet 1 tablet = 30 mg, By Mouth, Daily, # 90 tablet, 3 Refills, Maintenance, 08/03/23 1:17:00 PM EST, Tablet, [facility]/pharmacy #[id number], Partial fill upon patient [...] 11 Refills, Maintenance, 11/28/23 8:27:00 AM EDT, [id number], 178, cm, 11/17/23 10:55:00 EDT, Height, 113, [...] MOUTH AT BEDTIME NEEDED FOR INSOMNIA AURABINDO 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 ASSISTANT (Rx order must be sent to pharmacy ahead of time due to need for special order), # 30 tablet, 5 Refills, Maintenance, 02/07/24 1:20:00 PM EDT, [id number], AURABINDO ENTRY LEVEL 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 ASSISTANT ONLY PLEASE, 178,cm, 01/09/24 15:03:00 EDT, Height, [...] Myofascial pain syndrome Confirmed Active Obese class I Confirmed Active Pharyngitis Confirmed Active Recurrent UTI Confirmed Active RUQ pain Confirmed Active Sacroiliac joint pain Confirmed Active Vertigo Confirmed Active Diagnosis Diagnosis Type Effective Dates Health Status Clinical Service Informant Fibromyalgia Discharge Diagnosis 07/09/24 Amos-Danlos syndrome Discharge Diagnosis 07/09/24 Tommy's thyroiditis Discharge Diagnosis 07/09/24 Intractable headache Discharge Diagnosis 07/09/24 Vital Signs Most recent to oldest [Reference Range]: 1 Height 178 cm (07/09/24 10:49 AM) Weight 110.1 kg (07/09/24 10:49 AM) Oxygen Saturation [94-100 %] 98 % (07/09/24 10:49 AM) Pulse Rate [55-90 bpm] 97 bpm *H* (07/09/24 10:49 AM) Body Mass Index [18.5-24.99 kg/m2] 34.75 kg/m2 *>HHI* (07/09/24 10:49 AM) Blood Pressure [90-138/55-84 mm Hg] 113/ 78mm Hg (07/09/24 10:49 AM) Temperature [96.8-100.4 DegF] 97.5 DegF (07/09/24 10:49 AM) Mode of Delivery (Oxygen) Room air (07/09/24 10:49 AM) Blood pressure sites Arm, left (07/09/24 10:49 AM) Temperature Route Temporal (07/09/24 10:49 AM) Dry Weight 110.1 kg (07/09/24 10:49 AM) Weight Obtained Via Standing scale (07/09/24 10:49 AM) Dry Weight Obtained Via Standing scale (07/09/24 10:49 AM) Social History Social History Type Response Smoking Status Never (less than 100 in lifetime) entered on: 05/14/21 Sex Sex Representation Female (finding) Note * Marleny Amin: PERFORM Event Display: Patient Education/Instruction Authored Date: Ambulatory Adult Visit Summary [facility] [address] [place], [place] [id number] Name: NITA BETANCOURTLuis M : 1985?? Visit: 07/09/2024 10:46?? Ambulatory Visit Instructions ?? Your Care Team Primary Care Provider Yaima Brizuela MD? This Visit Provider Yaima Brizuela MD Your Diagnosis Fibromyalgia Amos-Danlos syndrome Tommy's thyroiditis Intractable headache Mononucleosis Vitals Signs Temperature: 97.5 DegF Height: 178 cm Pulse Rate:??97 bpm??High Weight: 110.1 kg Systolic Blood Pressure: 113 mm Hg Body Mass Index:??34.75 kg/m2??Critical Diastolic Blood Pressure: 78 mm Hg Body surface area: 2.33 Oxygen Saturation: 98 % ?? What to do next Scheduled Follow-Up Appointments Tuesday 9:00 AM EST ?? With: Ilana Miranda MD Where: [facility] [address] [place] [address]- Status: Pending Tuesday 10:30 AM EST ?? With: Darin Morse MDhammad Where: [facility] [address] [place] [address]- Status: Pending Tuesday 9:00 AM EDT ?? With: Ilana Miranda MD Where: [address] [address]- Status: Pending Future Orders CBC w/ Differential, Once, *Est. 07/09/24, Order for Today Comprehensive Metabolic Panel, Once, *Est. 07/09/24, Order for Today T3 Free, Once, *Est. 07/09/24, Order for Today T3 Total, Once, *Est. 07/09/24, Order for Today Thyroglobulin Ab, Once, *Est. 07/09/24, Order for Today Thyroid Antimicrosomal Ab, Once, *Est. 07/09/24, Order for Today TSH, Once, *Est. 07/09/24, Order for Today Vitamin D 25 Hydroxy Level, Once, *Est. 07/09/24, Order for Today Comprehensive Metabolic Panel - Once, *Est. 07/09/24, Order for Today?? T3 Total - Once, *Est. 07/09/24, Order for Today?? T3 Free (Free T3) - Once, *Est. 07/09/24, Order for Today?? CBC w/ Differential - Once, *Est. 07/09/24, Order for Today?? Thyroglobulin Ab - Once, *Est. 07/09/24, Order for Today?? Vitamin D 25 Hydroxy Level - Once, *Est. 07/09/24, Order for Today?? Thyroid Antimicrosomal Ab (TPO Thyroperoxidase Antibodies) - Once, *Est. 07/09/24, Order for Today?? TSH - Once, *Est. 07/09/24, Order for Today?? Free T4 - Routine, Once, 11/17/23 11:35:00 EDT, Order for Today, [facility], Blood?? Free T4 - Routine, Once, 12/28/23 14:39:00 EDT, Order for Today, [facility], Blood?? Lyme Western Blot - Routine, Once, 02/23/24 9:36:00 EDT, Order for Today, [facility], Blood?? EBV Early Antigen - Routine, Once, 07/09/24 11:48:00 EST, Order for Today, [facility], Blood?? Medications The [...] provider. What How Much When Why Instructions New Diclofenac Topical (diclofenac 1% topical gel) 2.25 Inch Topically 4 times a day as needed for Pain , Moderate Refills: 2 use dosing card to measure a dose ?? Pickup at [facility]/pharmacy #[id number] Unchanged Ascorbic Acid (Vitamin C 1000 mg oral tablet) 1 tab(s) Oral Twice a day Unchanged atogepant (atogepant 10 mg oral tablet) 1 tab(s) Oral Daily use lower dose of 10 mg daily instead of 30 mg when taking antifungal med with interaction ?? Unchanged atogepant (Qulipta 30 mg oral tablet) [...] Unchanged Cyanocobalamin (Vitamin B12) 5,000 Microgram Unchanged Econazole Topical (Econazole Nitrate 1% topical cream) PLEASE SEE ATTACHED FOR DETAILED DIRECTIONS ?? Unchanged Ethinyl Estradiol / Norethindrone (Junel oral tablet) Unchanged Fluconazole (fluconazole 150 mg oral tablet) 1 tab(s) Oral Daily Unchanged Flunisolide Nasal (flunisolide 25 mcg/ inh nasal spray) 2 spray(s) Nares, Both Twice a day Perennial allergic rhinitis Unchanged Folic Acid 100 Microgram Daily Unchanged [...] oral tablet) 2 tab(s) Oral Daily Unchanged Meloxicam (meloxicam 15 mg oral tablet) 1 tab(s) Oral Daily Duration: 15 Days Unchanged Miscellaneous Rx (D-mannose 2g daily) Unchanged Multivitamin (Vitamin B Complex oral tablet, extended release) Oral Daily Unchanged Olopatadine Ophthalmic (Pataday Once Daily Relief 0.2% ophthalmic solution) 1 Drops Both eyes Daily Unchanged [place]-3 Polyunsaturated Fatty Acids (Fish Oil) Oral Unchanged Ondansetron (ondansetron 4 mg oral tablet, disintegrating) DISSOLVE 1 TABLET IN MOUTH EVERY 8 HOURS NEEDED FOR NAUSEA AND VOMITING (INS ONLY COVERS 1 DAILY) ?? Unchanged Phytonadione (Vitamin K1) 100mcg daily ?? 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 [facility] Information [id number] [address], [place] [id number] [phone] Test Performed Below is a partial list of the tests performed during your Visit. You may have had other tests and procedures not included in this list. Please discuss all test results with your provider. EBV Early Antigen?-- Results Pending -- Medications and Immunizations Administered Medications Given During [...] are strongly encouraged to quit. Please call [employer] at [phone] or [phone] ([phone]) or log in to [email or web address] for referrals to smoking cessation programs. ?? The National Suicide Prevention Hotline is available 27/12 if you or someone you know needs to find a reason to keep living. By calling 5-053-278-talk (3304) you'll be connected to a skilled, trained counselor at a crisis center in your area. [facility] Health Portal You can view and manage your care through the patient portal or by using a health care marge of your choosing. [facility] is a website that allows you to securely view your medical information including your hospital discharge summary, office visit summaries, medications and follow-up visits. You can also request appointments, renew medications, and request access to your medical information using a health care marge of your choosing, or just ask a question. You can enroll at [email or web address] or register during your next office visit. [facility], in keeping with [facility] guidance, no longer requires face masks [...] primary care provider, you may find a [facility] provider by calling [facility] at [phone]. Patient Care team information Care Team Personnel Name: Yaima Brizuela MD Position: [facility] Physician - Primary Care Member Role: PCP Address: [address] [place] [id number] Telecom: Care Team Related Persons Name: AISHA ESTEVES Name: CECE ESTEVES Name: CECE NUÑEZ Insurance Providers Guarantor name: NITA DANIELITO Health Plan Information #: 1 Payer: [employer] Member Number: [id number] Policy Number: NA Group Number: [id number] Health Plan Information #: 2 Payer: [employer] Member Number: [id number] Policy Number: NA Group Number: [id number]
--- OUTSIDE RECORDS SUMMARY | 2024-07-23 08:06 | XMS_ITS | Continuity of Care Document ---
Author Organization [facility] Address [address] [place] [address]- Care Team Providers Care Field Evidence Technician Name Role Phone Chata HUGHES, Yaima Reed Primary Care Physician [phone] Encounter [facility] Date(s): 06/21/24 - 07/21/24 [facility] [address] [place] [address]- Encounter Type: Triage Allergies, Adverse Reactions, Alerts Substance Criticality Severity Reaction Reaction Severity Status terazosin DIZZINESS Active Glutens Active Xolair anaphylaxis Active Immunizations Given and Recorded Vaccine Date Status Refusal Reason SARS-CoV-2(COVID-19)mRNA-LNP vac([id number]) 03/18/23 Recorded [id number] 12y+ bivalent booster vax 03/26/22 Recorded SARS-CoV-2 [...] 1 Refills, Maintenance, 01/18/24 4:13:00 PM EDT, [facility]/pharmacy #[id number], 178, cm, 01/09/24 15:03:00 [...] Refills, Maintenance, 07/09/24 11:55:00 AM EST, Gel, [facility]/pharmacy #[id number], Partial fill upon patient [...] 11 Refills, Maintenance, 03/19/24 10:58:00 AM EDT, [facility]/pharmacy #[id number], Partial fill upon patient [...] Refills, Maintenance, 08/25/22 3:57:00 PM EDT, Solution, [facility]/pharmacy #[id number], Partial fill upon patient [...] Refills, Maintenance, 06/05/24 1:50:00 PM EST, Tablet, [facility]/pharmacy #[id number], Partial fill upon patient [...] 2 Refills, Maintenance, :12:00 PM EST, Tablet, [facility]/pharmacy #[id number], Partial fill upon patient [...] MIGRAINE/NAUSEA, # 40 tablet, 0 Refills, Acute 2/16/25 10:25:00 AM EST, 07/12/24 10:25:00 AM EST, Tablet, [id number], Partial fill upon [...] 1 Refills, Maintenance, 05/10/24 1:45:00 PM EST, [id number], Partial fill upon patient request [...] 11 Refills, Maintenance, 11/28/23 8:27:00 AM EDT, [facility] [id number], 178, cm, 11/17/23 10:55:00 EDT, Height, 113, [...] MOUTH AT BEDTIME NEEDED FOR INSOMNIA 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 Member Number: NA Policy Number: NA Group Number: NA
--- OUTSIDE RECORDS SUMMARY | 2024-07-23 08:07 | XMS_ITS | Continuity of Care Document ---
Author Organization [facility] Address [address] [place] [address]- Care Team Providers Care Customer Support Specialist Name Role Phone Chata HUGHES, Yaima Reed Primary Care Physician [place] [facility] [place]s): 06/21/24 - 07/21/24 [facility] [address] [place] [phone]- Encounter Type: Triage Allergies, Adverse Reactions, Alerts Substance Criticality Severity Reaction Reaction Severity Status terazosin DIZZINESS Active Glutens Active Xolair anaphylaxis Active Immunizations Given and Recorded Vaccine Date Status Refusal Reason SARS-CoV-2(COVID-19)mRNA-LNP vac([id number]) 03/18/23 Recorded [id number] 12y+ bivalent booster vax 03/26/22 Recorded SARS-CoV-2 [...] 1 Refills, Maintenance, 01/18/24 4:13:00 PM EDT, [facility]/pharmacy #[id number], 178, cm, 01/09/24 [...] Refills, Maintenance, 07/09/24 11:55:00 AM EST, Gel, [facility]/pharmacy #[id number], Partial fill upon [...] 11 Refills, Maintenance, 03/19/24 10:58:00 AM EDT, [facility]/pharmacy #[id number], Partial fill upon [...] Refills, Maintenance, 08/25/22 3:57:00 PM EDT, Solution, [facility]/pharmacy #[id number], Partial fill upon [...] Refills, Maintenance, 06/05/24 1:50:00 PM EST, Tablet, [facility]/pharmacy #[id number], Partial fill upon [...] 2 Refills, Maintenance, :12:00 PM EST, Tablet, [facility]/pharmacy #[id number], Partial fill upon [...] 11 Refills, Maintenance, 11/28/23 8:27:00 AM EDT, [id number], 178, cm, 11/17/23 10:55:00 EDT, Height, 113, [...] MOUTH AT BEDTIME NEEDED FOR INSOMNIA AURABINDO REJOINER (Rx order must be sent to pharmacy ahead of time due to need for special order), # 30 tablet, 5 Refills, Maintenance, 02/07/24 1:20:00 PM EDT, [id number], AURABINDO REJOINER ONLY PLEASE, 178,cm, 01/09/24 15:03:00 EDT, Height, [...] Name: Yaima Brizuela MD Position: [facility] Physician - Primary Care Member Role: PCP Address: [address] [place] [id number] Telecom: Care Team Related Persons Name: AISHA ESTEVES Name: CECE ESTEVES Name: CECE NUÑEZ Insurance Providers Guarantor name: NITA ESTEVES Health Plan Information #: 1 Payer: [facility] Member Number: NA Policy Number: NA Group Number: NA
--- OUTSIDE RECORDS SUMMARY | 2024-07-23 08:07 | XMS_ITS | Clinical Summary ---
Author Organization [facility] Address [address] [place] [address] Care Team Providers Care Rock Dust Sprayer Name Role Phone Unknown Primary Care Provider [phone] Social History Tobacco Use Types Packs/Day Years Used Date Smoking Tobacco: Never Assessed Sex and Gender Information Value Date Recorded Sex Assigned at Female 08/19/2022 3:21 PM EDT Gender Identity Female 08/19/2022 3:21 PM EDT Sexual Orientation Heterosexual (straight) 10/05 10:49 AM EDT Plan of Treatment Health Maintenance Due Date Last Done Comments Hepatitis C Virus Screening 1985 HIV Screening 1998 DTaP/Tdap/Td Vaccines (1 - Tdap) 02/04/2004 Hepatitis B Vaccines (1 of 3 - 19+ 3-dose series) 02/04/2004 Pap Smear (Ages 21-65) 2006 Influenza Vaccine 01/05/2024 COVID-19 Vaccine (2023-2 5 season) 2024 06/25/2021, 01/03/2021, 12/13/2020 HPV Vaccines Aged Out No longer eligi ble based on patient's age to complete this topic Pneumococcal Vaccine: Pediatric (0-5 Years) and At-Risk Patients (6 to 49 Years) Aged Out No longer eligible b ased on patient's age to complete this topic Insurance Payer Benefit Plan / Group Subscriber ID Effective Dates Phone Address [facility] [id number] [phone] Care Teams Rock Dust Sprayer Relationship Specialty Start Date End Date Unknown Unknow Provider Address PCP - General 10/05/22
--- OUTSIDE RECORDS SUMMARY | 2024-07-23 08:07 | XMS_ITS | Data Portability ---
Author Organization [facility], [facility] Address [address] [place] [address] Care Team Providers Care Open Developer Operator Name Role Phone PAULINA AVILA Primary Care Provider Assessment No assessment recorded. Plan of Treatment Reminders Order Date Submit Date Provider Last Modified By Organization Details Last Modified Time Details Appointments None record ed. Lab None record ed. Referral None record ed. Procedures None record ed. Surgeries None record ed. Imaging None record ed. Medication Orders None record ed. Patient TargetsNo targets recorded. Patient InstructionsNo instructions recorded. Reason for Referral None Reported. Results Created Date Observation Date Name Description Value Unit Range Abnormal Flag Note LastModifiedBy Organization Detail LastModifiedTime 02/04/2001/27/2022 imagi ng/di agnos tic resul t No observ ation record ed. [email or web address] Not Available 01/06 08:20:25 Result Notes None recorded. Procedures Surgical History None recorded. Imaging Results Imaging Date Name Status LastModified by Organiz ation Details LastModified Time 01/27/2022 imaging/diag nostic result completed [email or web address] Information not available 02/04/2024 08:20:25 Procedure Notes None recorded. Medical Equipment None Reported. Allergies Allergen ID Allergen Name Allergen Category Reaction Reaction Severity Criticality Documentation Date Start Date Code Code System Note Provider Name and Address Organization Details Recorded Time [id number] wheat gluten extract food Not available Not available Not available 02/22/2024 75558 81 RxNorm JESUSITA rowe, [facility] 10:02:43 815493 wheat preparati on food,medi cation Not available Not available Not available 02/22/2024 64186 52 RxNorm JESUSITA rowe, [facility] 4 10:02:48 [id number] Xolair medicatio n Not available Not available Not available 02/22/2024 13192 7 RxNorm JESUSITA rowe, [facility] 4 10:02:59 Medications Name Sig Start Date Stop Date Status Note LastModified by Organization Details LastModified Time nystatin 100,000 unit/mL oral suspension SWISH AND SWALLOW 5 ML BY MOUTH 4 TIMES A DAY FOR 7 DAYS active Not Available Not Available No t Available candesartan 4 mg tablet TAKE 1/2 TO 1 TABLET BY MOUTH DAILY active Not Available Not Available No t Available fluconazole 150 mg tablet TAKE 1 TABLET BY MOUTH EVERY OTHER DAY FOR 2 DOSES FOR VAGINAL YEAST RECURRENC E active Not Available Not Available No t Available benzonatate 200 mg capsule TAKE 1 CAPSULE BY MOUTH 3 TIMES A DAY FOR 14 DAYS NEEDED FOR COUGH active Not Available Not Available No t Available ketotifen 0.025 % (0.035 %) eye drops INSTILL ONE DROP INTO BOTH EYES TWICE A DAY NEEDED active Not Available Not Available No t Available fluconazole 200 mg tablet TAKE 1 TABLET BY MOUTH EVERY DAY FOR 5 DAYS 06/14 completed Not Available Not Available Not Available meloxicam 15 mg tablet TAKE 1 TABLET BY MOUTH EVERY DAY FOR 15 DAYS active Not Available Not Available No t Available nystatin-tr iamcinolone 100,000 unit/gram-0 .1 % topical ointment APPLY 3 TO 4 TIMES A DAY TO AFFECTED AREA active Not Available Not Available No t Available oxycodone-a cetaminophe n 5 mg-325 mg tablet TAKE 1 TABLET BY MOUTH TWICE A DAY NEEDED FOR PAIN FOR 5 DAYS active Not Available Not Available No t Available linezolid 600 mg tablet TAKE 1 TABLET BY MOUTH TWICE A DAY FOR 14 DAYS active Not Available Not Available No t Available phenazopyri dine 100 mg tablet TAKE 2 TABLETS BY MOUTH EVERY DAY FOR PAIN 06/14 completed Not Available Not Available Not Available flunisolide 25 mcg (0.025 %) nasal spray PUT TWO SPRAYS INTO BOTH NOSTRILS TWICE A DAY active Not Available Not Available No t Available econazole nitrate 1 % topical cream PLEASE SEE ATTACHED FOR DETAILED DIRECTION S active Not Available Not Available No t Available clotrimazol e-betametha sone 1 %-0.05 % topical cream APPLY SPARINGLY TO AFFECTED AREA TWICE A DAY FOR UP TO 2 WEEKS 06/14 completed Not Available Not Available Not Available Cytomel 25 mcg tablet 2 tablets twice a day by oral route. active Not Available Not Available No t Available hydroxyzine HCl 25 mg tablet TAKE 1 TO 2 TABLETS BY MOUTH UP TO 3 TIMES PER DAY NEEDED active Not Available Not Available No t Available epinephrine 0.3 mg/0.3 mL injection, auto-inject or USE DIRECTED FOR ANAPHYLAX IS THEN CALL 911 active Not Available Not Available No t Available zolpidem 10 mg tablet TAKE 1 TABLET BY MOUTH AT BEDTIME NEEDED FOR INSOMNIA active Not Available Not Available No t Available itraconazol e 100 mg capsule TAKE 2 CAPSULES DAILY FOR 14 DAYS. TAKE WITH FOOD. 06/14 completed Not Available Not Available Not Available ipratropium bromide 21 mcg (0.03 %) nasal spray SPRAY 1 TO 2 SPRAYS IN EACH NOSTRIL FOUR TIMES A DAY NEEDED active Not Available Not Available No t Available amoxicillin 875 mg-potassiu m clavulanate 125 mg tablet TAKE 1 TABLET BY MOUTH TWICE A DAY FOR 7 DAYS 06/14 completed Not Available Not Available Not Available voriconazol e 200 mg tablet TAKE 1 TABLET ORALLY EVERY 12 HOURS X 14 DAYS ON EMPTY STOMACH, AT LEAST 1 HOUR BEFORE OR AFTER MEAL active Not Available Not Available No t Available (21) 1.5 mg-30 mcg tablet TAKE 1 TABLET BY MOUTH EVERY DAY active Not Available Not Available No t Available Zetonna 37 mcg/actuati on nasal HFA inhaler USE 1 SPRAYS IN BOTH NARES DAILY 06/14 completed Not Available Not Available Not Available Qulipta 30 mg tablet TAKE 1 TABLET BY MOUTH DAILY active Not Available Not Available No t Available Qulipta 10 mg tablet TAKE 1 TABLET BY MOUTH DAILY (INSTEAD OF 30 MG WHEN TAKING ANTIFUNGA L MEDICINE DUE TO INTERACTI ON) active Not Available Not Available No t Available Vitals Date Recorded Body height Body mass index (BMI) Body weight Provider Name and Address Organization Details Last Updated DateTime 02/22/2024 177.8 cm 7.2 kg/m2 89262.62 g JESUSITA PABLO [place] - [facility] 02/22/2024 10:02:34 Date Recorded Body height Body mass index (BMI) Body weight Provider Name and Address Organization Details Last Updated DateTime 06/20/2024 177.8 cm 35.9 kg/m2 957328.09 g JESUSITA PABLO [place] - [facility] 06/20/2024 15:57:34 Social History None recorded. Functional Status None recorded. Mental Status None recorded. Family History Nothing Reported. Medical History Condition Response Thyroid Problems Y Gynecological HistoryNo gynecological history recorded. Obstetrics History GPAL:G 0 P 0 0 0 0 Past Encounters Encounter ID Performer Location Encounter Start Date Encounter Closed Date Diagnosis/Indication Diagnosis SNOMED-CT Code Diagnosis ICD10 Code Diagnosis Note [id number] MD Alaina Cole [address] [place] [address] 02/22/2024 08:56:46 03/14/2024 11:37:39 Bilateral carpal tunnel syndrome [id number] G56.03 [id number] MD SHANNA ColeA - [facility] [address] [place] [address] 06/20/2024 15:52:40 07/04/2024 14:43:27 Bilateral carpal tunnel syndrome [id number] G56.03 Health Concerns Section Related Observation LastModified by Organization Detai ls LastModified Time None Recorded Concern Status LastModified by Organization Details LastModified Time None Recorded Advance Directives Directive None Recorded Payers Encounter Date Sequence Insurance Name Policy Number Policy Locke Covered Member ID Locke Member ID Guarantor Name 02/22/2024 1 [facility] (MEDICAID REPLACEMENT - HMO) [id number] Venus Brianna Piteo [id number] Venus Brianna Piteo 06/20/2024 1 [facility] (MEDICAID REPLACEMENT - HMO) [id number] Venus A Piteo [id number] Venus Brianna Bernsteino Notes Date Note Type Note Provider Name and Address Organization Details Recorded Time 02/22/2024 text/html Diagnosis: Bilat eral carpal tunnel syndromeHistory of Amos-Danlos [id number] female who presents with numbness tingling and weakness in her bilateral hands. This developed without history of trauma or other inciting event. She has recently undergone EMG/NCS of her bilateral upper extremities.Past family, medical, social history and review of systems has been reviewed, updated and is located in the patient? s chart.Examination: Healthy appearing patient in no apparent distress. Alert and oriented. She has symmetric range of motion of her bilateral wrists and digits. Provocative testing of wrists and digits reveal no instability. Carpal tunnel compression test is positive bilaterally. No atrophy in either upper extremity. Brisk capillary refill in all digitsI reviewed an EMG/NCS of the patient's bilateral upper extremities. The findings were consistent with moderately severe bilateral carpal tunnel syndrome.Plan:The patient and I discussed the situation at length. The patient's history, physical findings and electrodiagnostic studies are consistent with bilateral carpal tunnel syndrome. I described the nature of carpal tunnel syndrome and treatment options. I recommended carpal tunnel surgery.. We discussed the nature of the surgery and potential risks including infection, injury to blood vessels, tendons, nerves, incomplete relief of numbness and palmar tenderness. All of the patient's questions were answered.The patient has declined surgery. She feels L is Danlos syndrome will complicate her recovery. She asked for other options. These options include observation, night splinting, corticosteroid injection therapy and occupational therapy. None of these are likely to cure her. All of these are likely to result in her carpal tunnel syndrome progressing. She will consider her options and contact me if she has questions or she wishes to pursue surgical treatment. Alvaro Anderson MD [address] [place] [address] [address], [place], [address], [facility] - [facility] 02/22/2024 12:24:18 06/20/2024 text/html Diagnosis: 1. Bilateral carpal tunnel 2. Bilateral Amos-Danlos syndrome The patient returns at her request. She reports that she has had a variety of pains in her upper extremities and her physical therapist has referred her back to me. 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 Past family, medical, social history and review of systems has been reviewed, updated and is located in the patient? s chart. Examination: Healthy appearing patient in no apparent distress. Alert and oriented. She has symmetric range of motion of her bilateral wrist and digits. Provocative testing of wrist and digits reveal no instability. Lamberto's test is negative bilaterally. Resisted thumb extension test is negative bilaterally. There is no evidence of intersection syndrome in either upper extremity. No atrophy in either upper extremity. Brisk capillary refill in all digits Plan: The patient and I discussed her situation at length. She does not appear to have any of the aforementioned tendinopathy's. We did discuss her carpal tunnel syndrome and her treatment options. We reviewed both surgical intervention and corticosteroid injection therapy. She understands that a corticosteroid injection might make her feel better but is unlikely to cure her all her questions were answered. She will contact me if she has questions or she wishes to proceed with treatment. Alvaro Anderson MD [address] [place] [address] [address], [place], [address], [facility] - [facility] 06/20/2024 16:45:12 OBGyn Episode No OBEpisode recorded.
--- OUTSIDE RECORDS SUMMARY | 2024-07-23 08:07 | XMS_ITS | Continuity of Care Document ---
Author Organization [facility] Address [address] [place] [address], [address] Floor, [address] [place] [address]- Care Team Providers Care Medical Lab Tech Instructor Name Role Phone Yaima Brizuela MD Primary Care Physician Encounter [facility] Date(s): 06/21/24 - 07/21/24 [facility] [address] [place] [address] 3rd Floor, [address] [place] [address]- Encounter Type: Triage Allergies, Adverse Reactions, Alerts Substance Criticality Severity Reaction Reaction Severity Status terazosin DIZZINESS Active Glutens Active Xolair anaphylaxis Active Immunizations Given and Recorded Vaccine Date Status Refusal Reason SARS-CoV-2(COVID-19)mRNA-LNP vac([id number]) 03/18/23 Recorded [id number] 12y+ bivalent booster vax 03/26/22 Recorded SARS-CoV-2 [...] Refills, Maintenance, 01/18/24 4:13:00 PM EDT, [facility]/pharmacy #[id number], 178, cm, 01/09/24 15:03:00 [...] Maintenance, 07/09/24 11:55:00 AM EST, Gel, [facility]/pharmacy #[id number], Partial [...] Refills, Maintenance, 03/19/24 10:58:00 AM EDT, [facility]/pharmacy #[id number], Partial [...] EST, 07/12/24 10:25:00 AM EST, Tablet, [facility]/pharmacy #[id number], [...] Refills, Maintenance, 05/10/24 1:45:00 PM EST, [facility]/pharmacy #[id number], Partial [...] Maintenance, 08/03/23 1:17:00 PM EST, Tablet, [facility]/pharmacy #[id number], Partial fill upon patient request if the prescription is for a schedule II opioid drug., 178, cm, 07/26/23 10:49:00 EST, Height, 109.5, kg, 11/09/22 21:34:00 EDT, Dry Weight Start Date: 08/03/23 Stop Date: 07/28/24 Status: Ordered Quantity: 90.0 Unit: tablet Repeat number: 4 Rossisalon Perles = 100 mg, By Mouth, 3 [...] Refills, Maintenance, 11/28/23 8:27:00 AM EDT, [facility] STORE [id number], 178, cm, 11/17/23 10:55:00 EDT, Height, 113, [...] MOUTH AT BEDTIME NEEDED FOR INSOMNIA AURABINDO URBAN ANTHROPOLOGIST (Rx order must be sent to pharmacy ahead of time due to need for special order), # 30 tablet, 5 Refills, Maintenance, 02/07/24 1:20:00 PM EDT, [id number], AURABINDO URBAN ANTHROPOLOGIST ONLY PLEASE, 178,cm, 01/09/24 15:03:00 EDT, Height, [...] - Primary Care Member Role: PCP Address: [address] [place] [address] Telecom: Care Team Related Persons Name: AISHA ESTEVES Name: CECE ESTEVES Name: CECE NUÑEZ Insurance Providers Guarantor name: NITA ESTEVES Health Plan Information #: 1 Payer: [facility] Member Number: NA Policy Number: NA Group Number: NA
--- OUTSIDE RECORDS SUMMARY | 2024-07-23 08:07 | XMS_ITS | Clinical Summary ---
Author Organization Counts include 234 beds at the [facility] Address [address] [place] [address] Care Team Providers Care Sql Server Consultant Name Role Phone Pcp, No MD Primary Care Provider Unavailabl e Allergies No known active allergies Medications zolpidem (AMBIEN) 10 mg tablet Take by mouth daily. Active thyroid, pork, (ARMOUR THYROID) 90 mg tablet Take by mouth. Active aspirin (ASPIRIN LOW DOSE) 81 mg EC tablet Take by mouth daily. Active norethindrone (AYGESTIN) 5 mg tablet Take by mouth daily. 05/23/2017 Active liothyronine (CYTOMEL) 25 mcg tablet Take by mouth. Active docosahexanoic acid-epa 120-180 mg capsule Take by mouth. Active cetirizine (ZyrTEC) 10 mg tablet Take by mouth daily. Active vancomycin (VANCOCIN) 1,000 mg injection Infuse 1,000 mg into a venous catheter daily. Active ivermectin (STROMECTOL) 3 mg tablet Take 3 mg by mouth every other day. Twice a day every other day Active nitazoxanide (ALINIA ORAL) Take 500 mg by mouth every other day. Active Family History Medical History Relation Comments Glaucoma Father Hyperlipidemia Father Hypertension Father Heart disease Mother Relation Status Comments Father Mother Social History Tobacco Use Types Packs/Day Years Used Date Smoking Tobacco: Never Smokeless Tobacco: Never Alcohol Use Standard Drinks/Week Comments No 0 (1 standard drink = 0.6 oz pur e alcohol) Comments No Sex and Gender Information Value Date Recorded Sex Assigned at Not on file Legal Sex Female 5:37 AM EST Gender Identity Not on file Sexual Orientation Not on file Last Filed Vital Signs Vital Sign Reading Time Taken Comments Blood Pressure 118/85 03/31/2018 8:32 AM EDT Pulse 83 03/31/2018 8:32 AM EDT Temperature - - Respiratory Rate - - Oxygen Saturation - - Inhaled Oxygen Concentration - - Weight 115 kg (253 lb) 03/31/2018 8:32 AM EDT Height 177.8 cm (5' 10 ) 03/06/2018 8:52 AM EDT Body Mass Index 36.3 03/06/2018 8:52 AM EDT Plan of Treatment Health Maintenance Due Date Last Done Comments HIV Screening 1985 DTaP,Tdap,and Td Vaccines (1 - Tdap) 2003 Hepatitis B Vaccines (1 of 3 - 19+ 3-dose series) 02/04/2004 Pap Smear 2006 Cervical Cancer Screening 2015 HPV/Cotest 2015 COVID-19 Vaccine ( - 2023-2 5 season) 2024 Influenza Vaccine (#1) 2024 Zoster Vaccines (1 of 2) 2035 HPV Vaccines Aged Out No longer eligi ble based on patient's age to complete this topic Hepatitis A Vaccines Aged Out No long er eligible based on patient's age to complete this topic MMR Vaccines Aged Out No longer eligi ble based on patient's age to complete this topic Meningococcal Vaccine Aged Out No rashaun addi eligible based on patient's age to complete this topic Pneumococcal Vaccine: Pediat rics (0 to 5 Years) and At-Risk Patients (6 to 64 Years) Aged Out No longer eligible b ased on patient's age to complete this topic Insurance ANTHEM - OUT OF STATE Care Teams Sql Server Consultant Relationship Specialty Start Date End Date PcpAshley MD [address] [place] [address] PCP - General 08/03/17
--- OUTSIDE RECORDS SUMMARY | 2024-07-23 08:07 | XMS_ITS | Continuity of Care Document ---
Author Organization [facility] Address [address] [place] [address]- Care Team Providers Care Candlemaking Laborer Name Role Phone Yaima Brizuela MD Primary Care Physician Encounter [facility] Date(s): 05/28/24 - 06/27/[address] [address] Attending Physician: AdmtrJason Admitting Physician: AdmtrJason Referring Physician: Admtr, [id number] Encounter Type: Triage Allergies, Adverse Reactions, Alerts Substance Criticality Severity Reaction Reaction Severity Status terazosin DIZZINESS Active Glutens Active Xolair anaphylaxis Active Immunizations Given and Recorded Vaccine Date Status Refusal Reason SARS-CoV-2(COVID-19)mRNA-LNP vac([id number]) 03/18/23 Recorded [id number] 12y+ bivalent booster vax 03/26/22 Recorded SARS-CoV-2 [...] 1 Refills, Maintenance, 01/18/24 4:13:00 PM EDT, [facility]/pharmacy #[id number], 178, cm, 01/09/24 15:03:00 [...] 11 Refills, Maintenance, 03/19/24 10:58:00 AM EDT, [facility]/pharmacy #[id number], Partial fill upon [...] Quantity: 15.0 Unit: tablet Repeat number: 1 ondansetron 4 [...] 11 Refills, Maintenance, 11/28/23 8:27:00 AM EDT, [facility] STORE [id number], 178, cm, 11/17/23 10:55:00 EDT, Height, 113, kg, 11/17/23 10:55:00 EDT, Dry Weight Start Date: 11/28/23 Status: Ordered Quantity: 6.1 Unit: each Repeat number: 1 zinc sulfate 66 mg oral tablet 1 tablet = 66 mg, By Mouth, 3 times a day, # 42 tablet, 5 Refills, Maintenance, 03/14/24 4:16:00 PM EDT, Tablet, [facility]/pharmacy #[id number], Partial fill upon [...] MOUTH AT BEDTIME NEEDED FOR INSOMNIA AURABINDO BARN HAND (Rx order must be sent to pharmacy ahead of time due to need for special order), # 30 tablet, 5 Refills, Maintenance, 02/07/24 1:20:00 PM EDT, [id number], AURABINDO BARN HAND ONLY PLEASE, 178,cm, 01/09/24 15:03:00 EDT, Height, [...] - Primary Care Member Role: PCP Address: [address] [place] [address] Telecom: Care Team Related Persons Name: AISHA ESTEVES Name: CECE ESTEVES Name: CECE NUÑEZ Insurance Providers Guarantor name: NITA ESTEVES Health Plan Information #: 1 Payer: [employer] Member Number: NA Policy Number: NA Group Number: NA
--- OUTSIDE RECORDS SUMMARY | 2024-07-23 08:07 | XMS_ITS | Clinical Summary ---
Author Organization [facility] Address [address] [place] [address] Care Team Providers Care Tank Car Reconditioner Name Role Phone Brittany Ramsey MD Primary Care Provider [phone] Allergies No known active allergies Medications No known medications Social History Tobacco Use Types Packs/Day Years Used Date Smoking Tobacco: Never Smokeless Tobacco: Never Alcohol Use Standard Drinks/Week Comments No 0 (1 standard drink = 0.6 oz pur e alcohol) Sex and Gender Information Value Date Recorded Sex Assigned at Not on file Gender Identity Not on file Sexual Orientation Not on file Last Filed Vital Signs Vital Sign Reading Time Taken Comments Blood Pressure - - Pulse - - Temperature - - Respiratory Rate - - Oxygen Saturation - - Inhaled Oxygen Concentration - - Weight 112.5 kg (248 lb) 03/07/2018 3:34 PM EDT Height 177.8 cm (5' 10 ) 03/07/2018 3:34 PM EDT Body Mass Index 35.58 03/07/2018 3:34 PM EDT Plan of Treatment Health Maintenance Due Date Last Done Comments Hepatitis B Vaccines (1 of 3 - 3-dose series) 1985 Hepatitis C Screening 1985 COVID-19 Vaccine (#1) 1985 Depression Screening 1997 Preventative Health Evaluation 2003 DTap / Tdap / Td (1 - Tdap) 02/04/2004 Cervical Cancer Screening (P ap Smear) 2006 Influenza Vaccine (#1) 2024 Pneumococcal Vaccine Aged Out No long er eligible based on patient's age to complete this topic RSV Ped < 20 months Aged Out No longe r eligible based on patient's age to complete this topic Care Teams Tank Car Reconditioner Relationship Specialty Start Date End Date Brittany Ramsey MD [address] [place] [address] PCP - General Family Medicine 03/07/18
--- OUTSIDE RECORDS SUMMARY | 2024-07-23 08:07 | XMS_ITS | Continuity of Care Document ---
Author Organization [facility] Address [address] [place] [address]- Care Team Providers Care Handy Man Name Role Phone Yaima Brizuela MD Primary Care Physician [phone] Encounter [facility] Date(s): 06/01/24 - 07/01/24 [facility] [address] [place], [place] [address] Encounter Type: Triage Allergies, Adverse Reactions, Alerts Substance Criticality Severity Reaction Reaction Severity Status terazosin DIZZINESS Active Glutens Active Xolair anaphylaxis Active Immunizations Given and Recorded Vaccine Date Status Refusal Reason SARS-CoV-2(COVID-19)mRNA-LNP vac([id number]) 03/18/23 Recorded [id number] 12y+ bivalent booster vax 03/26/22 Recorded SARS-CoV-2 [...] 1 Refills, Maintenance, 01/18/24 4:13:00 PM EDT, [facility]/pharmacy #[id number], 178, cm, 01/09/24 15:03:00 EDT, Height, [...] 11 Refills, Maintenance, 03/19/24 10:58:00 AM EDT, [id number], Partial fill upon patient [...] Start Date: 06/01/19 Status: Ordered Repeat number: 1 07/05 oral tablet 0 Refills, Maintenance, 07/16/21 [...] 11 Refills, Maintenance, 11/28/23 8:27:00 AM EDT, [facility] STORE [id number], 178, cm, 11/17/23 10:55:00 EDT, Height, 113, [...] MOUTH AT BEDTIME NEEDED FOR INSOMNIA AURABINDO CASKET LINER (Rx order must be sent to pharmacy ahead of time due to need for special order), # 30 tablet, 5 Refills, Maintenance, 02/07/24 1:20:00 PM EDT, [id number], AURABINDO CASKET LINER ONLY PLEASE, 178,cm, 01/09/24 15:03:00 EDT, Height, [...] - Primary Care Member Role: PCP Address: [address] [place] [address] Telecom: Care Team Related Persons Name: AISHA ESTEVES Name: CECE ESTEVES Name: CECE NUÑEZ Insurance Providers Guarantor name: NITA ESTEVES Health Plan Information #: 1 Payer: [employer] Member Number: NA Policy Number: NA Group Number: NA
--- OUTSIDE RECORDS SUMMARY | 2024-07-23 08:07 | XMS_ITS | Continuity of Care Document ---
Author Organization [facility] Address [address] [place] [address]- Care Team Providers Care [employer] Name Role Phone Yaima Brizuela MD Primary Care Physician [phone] Encounter [facility] ACCT R [id number] Date(s): 06/15/24 - 07/15/24 [facility] [address], [place] [address] Encounter Type: Triage Allergies, Adverse Reactions, Alerts Substance Criticality Severity Reaction Reaction Severity Status terazosin DIZZINESS Active Glutens Active Xolair anaphylaxis Active Immunizations Given and Recorded Vaccine Date Status Refusal Reason SARS-CoV-2(COVID-19)mRNA-LNP vac([id number]) 03/18/23 Recorded [id number] 12y+ bivalent booster vax 03/26/22 Recorded SARS-CoV-2 [...] cm, 03/10/24 15:24:00 EDT, Height, 112, kg, 10/03/24 11:00:00 EDT, Dry Weight Start Date: 04/27/24 Status: Ordered Quantity: 90.0 Unit: tablet Repeat number: 1 candesartan 4 mg oral tablet 1/2 TO 1 TABLET, By Mouth, Daily, # 90 tablet, 1 Refills, Maintenance, 01/18/24 4:13:00 PM EDT, [facility]/pharmacy #[id number], 178, cm, 01/09/24 [...] Refills, Maintenance, 07/09/24 11:55:00 AM EST, Gel, [facility]/pharmacy #[id number], Partial fill upon [...] 11 Refills, Maintenance, 03/19/24 10:58:00 AM EDT, [facility]/pharmacy #[id number], Partial fill upon [...] AM EST, 07/12/24 10:25:00 AM EST, Tablet, [facility]/pharmacy #[id number], Partial fill upon [...] 1 Refills, Maintenance, 05/10/24 1:45:00 PM EST, [facility]/pharmacy #[id number], Partial fill upon [...] Refills, Maintenance, 08/03/23 1:17:00 PM EST, Tablet, [facility]/pharmacy #[id number], Partial fill upon [...] 11 Refills, Maintenance, 11/28/23 8:27:00 AM EDT, [facility] STORE [id number], 178, cm, 11/17/23 10:55:00 EDT, Height, 113, kg, 11/17/23 10:55:00 EDT, Dry Weight Start Date: 11/28/23 Status: Ordered Quantity: 6.1 Unit: each Repeat number: 1 zinc sulfate 66 mg oral tablet 1 tablet = 66 mg, By Mouth, 3 times a day, # 42 tablet, 5 Refills, Maintenance, 10/9/24 4:16:00 PM EDT, Tablet, [id number], Partial [...] MOUTH AT BEDTIME NEEDED FOR INSOMNIA 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 (Rx order must be sent to pharmacy ahead of time due to need for special order), # 30 tablet, 5 Refills, Maintenance, 02/07/24 1:20:00 PM EDT, [id number], 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 ONLY PLEASE, 178,cm, 01/09/24 15:03:00 EDT, Height, [...] - Primary Care Member Role: PCP Address: [address] [place] [address] Telecom: Care Team Related Persons Name: AISHA ESTEVES Name: CECE ESTEVES Name: CECE NUÑEZ Insurance Providers Guarantor name: NITA DANIELITO Health Plan Information #: 1 Payer: [facility] Member Number: NA Policy Number: NA Group Number: NA
--- OUTSIDE RECORDS SUMMARY | 2024-07-23 08:07 | XMS_ITS | Continuity of Care Document ---
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 Name Role Phone Yaima Brizuela MD Primary Care Physician Encounter [facility] ACCT R [id number] Date(s): 06/13/24 - 07/13/24 [facility] [address] [place], [place] [address] Encounter Type: Triage Allergies, Adverse Reactions, Alerts Substance Criticality Severity Reaction Reaction Severity Status terazosin DIZZINESS Active Glutens Active Xolair anaphylaxis Active Immunizations Given and Recorded Vaccine Date Status Refusal Reason SARS-CoV-2(COVID-19)mRNA-LNP vac([id number]) 03/18/23 Recorded [id number] 12y+ bivalent booster vax 03/26/22 Recorded SARS-CoV-2 [...] 1 Refills, Maintenance, 01/18/24 4:13:00 PM EDT, [facility]/pharmacy #[id number], 178, cm, 01/09/24 15:03:00 EDT, Height, [...] Refills, Maintenance, 07/09/24 11:55:00 AM EST, Gel, [facility]/pharmacy #[id number], Partial fill upon [...] 11 Refills, Maintenance, 03/19/24 10:58:00 AM EDT, [facility]/pharmacy #[id number], Partial fill upon [...] AM EST, 07/12/24 10:25:00 AM EST, Tablet, [facility]/pharmacy #[id number], Partial fill upon [...] 1 Refills, Maintenance, 05/10/24 1:45:00 PM EST, [facility]/pharmacy #[id number], Partial fill upon [...] Refills, Maintenance, 08/03/23 1:17:00 PM EST, Tablet, [facility]/pharmacy #[id number], Partial fill upon [...] 11 Refills, Maintenance, 11/28/23 8:27:00 AM EDT, [facility] STORE [id number], 178, cm, 11/17/23 10:55:00 EDT, Height, 113, [...] AT BEDTIME NEEDED FOR INSOMNIA 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
--- OUTSIDE RECORDS SUMMARY | 2024-07-23 08:07 | XMS_ITS | Clinical Summary ---
Author Organization [address] Address [address] [place] [phone] Phone Care Team Providers Care Hot Patcher Name Role Phone Brittany Ramsey MD Primary Care Provider [phone] Allergies Active Allergy Reactions Criticality Noted Date Comments Gluten 06/13/2018 Omalizumab 06/11/2020 Pollen Extracts 11/28/2019 Terazosin Dizziness 03/03/2023 Medications Qulipta 30 mg tablet Take 1 tablet by mouth 1 (one) time each day. Active benzonatate (TESSALON) 100 mg capsule Take 100 mg by mouth 2 Times Daily. Active candesartan (ATACAND) 4 mg tablet Take 0.5-1 tablets (2-4 mg total) by mouth 1 (one) time each day. Active cholecalciferol (VITAMIN D-3) 250 mcg (10,000 unit) capsule Take by mouth. Activ e cyanocobalamin, vitamin B-12, 5,000 mcg capsule Take by mouth. Active d-mannose powder 1,000 mg. 01/23/20 19 Active EPINEPHrine (EPIPEN) 0.3 mg/0.3 mL injection USE DIRECTED FOR ANAPHYLAXIS THEN CALL 911 Active hydrOXYzine HCL (ATARAX) 25 mg tablet TAKE 1 TO 2 TABLETS BY MOUTH UP TO 3 TIMES PER DAY NEEDED Active ketotifen fumarate (ZADITOR) 0.035 % ophthalmic solution INSTILL ONE DROP INTO BOTH EYES TWICE A DAY NEEDED Active liothyronine (CYTOMEL) 25 mcg tablet 4 Tablets. 09/06/19 Active loratadine (CLARITIN) 10 mg tablet Take 20 mg by mouth every morning. Active OMEGA-3 FATTY ACIDS-FISH OIL ORAL Take 2 g by mouth. Active ondansetron ODT (ZOFRAN-ODT) 4 mg disintegrating tablet DISSOLVE 1 TABLET IN MOUTH EVERY 8 HOURS NEEDED FOR NAUSEA AND VOMITING (INS ONLY COVERS 1 DAILY) 04/26/20 19 Active phytonadione, vit K1, (vitamin k) 100 mcg tablet Take by mouth. Active zolpidem (AMBIEN) 10 mg tablet Take 1 tablet (10 mg total) by mouth at bedtime as needed. 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 Hypothyroidism 05/13/2024 Mast cell disease 05/13/2024 PCOS (polycystic ovarian syndrome) 05/13/2024 Encounters Date Type Department Care Team Description 05/16/2024 2:30 PM EST Office Visit [facility]st[facility] [address] [facility] [place] [address] Genoveva Ortiz CNM Vaginal discharge (Primary Dx); Vulvar burning from Last 3 Months Surgical History Surgery Date Site/Laterality Comments OTHER SURGICAL HISTORY PROCEDURE: ---- OTHER ----; COMMENT: laparosopy and removal of endometriosis Medical History Medical History Date Comments Hypothyroidism DX:Hypothyroidis m PCOS (polycystic ovarian syndrome) DX:PCOS (polycystic ovarian syndrome) Endometriosis DX:Endometriosis Amos-Danlos syndrome DX:Amos -Danlos syndrome Tommy's thyroiditis DX:Antonieta tamiko's thyroiditis Mast cell disease DX:Mast cell d isease History of Lyme disease DX:Histo ry of Lyme disease Family History Medical History Relation Name Comments Other: non-melanoma skin cancer Father Relation Name Status Comments Father Social History Tobacco Use Types Packs/Day Years Used Date Smoking Tobacco: Never Smokeless Tobacco: Never Alcohol Use Standard Drinks/Week Comments Never 0 (1 standard drink = 0.6 oz pur e alcohol) Housing Instability Answer Date Recorde d Are you worried that in the next 2 months you may not have stable housing? No 05/16/2024 Food Access & Nutrition Answer Date Rec orded Do you have access to a vari ety of food including fruits and vegetables? Yes 05/16/2024 Access to Healthcare Answer Date Record ed Within the last 3 months, ho w many times did you visit the emergency department for your medical care? 0 05/16/2024 Health Literacy Answer Date Recorded How often do you need to hav e someone help you when you read instructions, pamphlets, or other written material from your doctor or pharmacy? Never 05/16/2024 Caregiver: How often do you need to have someone help you when you read instructions, pamphlets, or other written material from your doctor or pharmacy? Not on file 05/16/2024 Financial Risk Answer Date Recorded How hard is it for you to pa y for the very basics like food, housing, medical care, and air conditioning / heating? Patient declined 05/16/2024 Transportation Answer Date Recorded Has the lack of transportati on kept you from meetings, work, or from getting things needed for daily living? No Has the lack of transportati on kept you from medical appointments or from getting medications? No 05/16/2024 Social Isolation Answer Date Recorded How often do you feel lonely or isolated from those around you? Sometimes 05/16/2024 Food Risk Answer Date Recorded Within the past 12 months we worried whether our food would run out before we got money to buy more. Never true 05/16/2024 Within the past 12 months th e food we bought just didn't last and we didn't have money to get more. Never true 05/16/2024 Dependent Care Answer Date Recorded Do you need help finding or paying for care for your loved ones. For example, children librarian or elderly care for an older adult? No 05/16/2024 Education Answer Date Recorded Do you think completing more education or training, like finishing a GED, going to college, or learning a trade, would be helpful for you? No 05/16/2024 Employment and Income Answer Date Recor ded During the last four weeks, have you been actively looking for work? No 05/16/2024 Living Situation Answer Date Recorded What is your living situation? 1 07/17/2023 Comments Unknown Sex and Gender Information Value Date Recorded Sex Assigned at Not on file Legal Sex Female 3:23 AM EST Gender Identity Not on file Sexual Orientation Not on file Obstetrics History Last Filed Vital Signs Vital Sign Reading Time Taken Comments Blood Pressure 121/74 05/16/2024 2:39 PM EST Pulse 78 05/16/2024 2:39 PM EST Temperature - - Respiratory Rate 15 05/16/2024 2:39 PM EST Oxygen Saturation - - Inhaled Oxygen Concentration - - Weight 110 kg (243 lb) 05/16/2024 2:39 PM EST Height 177.8 cm (5' 10 ) 05/16/2024 2:39 PM EST Body Mass Index 34.87 05/16/2024 2:39 PM EST Plan of Treatment Upcoming Encounters Date Type Department Care Team (Late st Contact Info) Description 08/13/2024 9:00 AM EDT Office Visit Obstetrics and Gynecology [facility] [address] [place] [address] Elliott Ledezma, [facility] [address] [place] [address] Health Maintenance Due Date Last Done Comments DTaP,Tdap,and Td Vaccines (1 - Tdap) 02/04/2004 Hepatitis B Vaccines (1 of 3 - 19+ 3-dose series) 02/04/2004 HIV Screening 05/15/2022 Hepatitis C Screening 05/15/2022 COVID-19 Vaccine ( season) 2024 03/18/2023, 03/26/2022, 06/25/2021, Additional history exists Influenza Vaccine (#1) 2024 Depression Screening 05/16/2025 05/16/2024 Social Influencers of Health Screening 05/16/2025 05/16/2024 Cervical Cancer Screening: Pap Smear 03/03/2026 03/03/2023 HIB Vaccines Aged Out No longer eligi ble based on patient's age to complete this topic HPV Vaccines Aged Out No longer eligi ble based on patient's age to complete this topic Hepatitis A Vaccines Aged Out No long er eligible based on patient's age to complete this topic IPV Vaccines Aged Out No longer eligi ble based on patient's age to complete this topic MMR Vaccines Aged Out No longer eligi ble based on patient's age to complete this topic Meningococcal ACWY Vaccine Aged Out N o longer eligible based on patient's age to complete this topic Meningococcal B Vacine Aged Out No lo nger eligible based on patient's age to complete this topic Pneumococcal Vaccine: Pediatrics (0 to 5 Years) and At-Risk Patients (6 to 64 Years) Aged Out No longer eligible based on patient's age to complete this topic RSV Immunization Patients Under 20 months Aged Out No longer eligible based on patient's age to complete this topic Varicella Vaccines Aged Out No longer eligible based on patient's age to complete this topic Procedures Procedure Name Priority Date/Time Associated Diagnosis Comments TRICHOMONAS VAGINALIS ANTIGEN Routine 05/16/2024 3:47 PM EST Vaginal discharge WET PREP, GENITAL Routine 05/16/2024 3:4 7 PM EST Vaginal discharge HM PAP SMEAR Routine 03/03/2023 from Last 3 Months or Most Recently Relevant to Health Maintenance Results * Trichomonas vaginalis antigen (05/16/2024 3:47 PM EST) Trichomonas vaginalis Negative Negative 05/16/2024 7:15 PM EST [facility] Swab Vaginal structure / Unknown Non-blood Collection / Unknown 05/16/2024 3:47 PM EST 05/16/2024 3:47 PM EST Genoveva Ortiz CNM LAB MICROBIOLOGY - GENERAL ORDERABLES Final Result [facility] [address] [place] [address], [place] [phone] * Wet prep, genital (05/16/2024 3:47 PM EST) Clue Cells, Wet Prep Negative Negative 05/16/2024 6:52 PM EST [facility] Yeast, Wet Prep Negative Negative 05/16/2024 6:52 PM EST [facility] Trichomonas, Wet Prep Indeterminate Negative 05/16/2024 6:52 PM EST [facility] Comment:Refer to Trichomonas antigen. Swab Vaginal structure / Unknown Non-blood Collection / Unknown 05/16/2024 3:47 PM EST 05/16/2024 3:47 PM EST Genoveva BOWIE LAB MICROBIOLOGY - GENERAL ORDERABLES Final Result [facility] [address] [place] [address], * Pap Smear (03/03/2023) Pap smear NEGATIVE, ABSTRACTED Historical Provider HEALTH MAINTENANCE Final Result from Last 3 Months or Most Recently Relevant to Health Maintenance Insurance [facility] Care Teams Hot Patcher Relationship Specialty Start Date End Date Brittany Ramsey MD [address] [place] [address] PCP - General Family Medicine 03/07/18
== END 2024-07-23 08:05 | disposition home or self-care (01) ==
LOC: HO.US 08:04
PROVIDERS: Visit Provider Internal Medicine Gastroenterology
DX: R10.11 Right upper quadrant pain (principal)
CPT/HCPCS: 76705; 76981

== ENCOUNTER → 2024-07-23 08:05 | Outpatient (BNV) | payer OTHER, SELFPAY | PROVIDERS: Visit Provider Radiology Diagnostic Radiology | DX: K76.89 Other specified diseases of liver (principal) | CPT/HCPCS: 76705 ==

== ENCOUNTER 2024-07-30 13:03 | Outpatient (AMB) | payer OTHER, SELFPAY ==
[2024-07-30 13:07] VITALS: BP 114/75; PULSE 88; BMI 20.5
--- NOTE | 2024-07-30 13:07 | A.OFFVIS_ITS ---
Vital Signs 07/30/24 13:07 Height 5 ft 10 in Weight 143 lb BMI 20.5 BP 114/75 Blood Pressure Location Lt brachial Position Sitting Pulse 88 Intake Visit Reasons: 6 month f/u Intake Note: Venus presents in the office as a 6 month follow up today. CC: She states that she had MRI on tuesday at [facility] and states that she had a tilt table test the day prior and she woke up the end of Jun with the back of her head vibrating and trouble standing and she states that bile was coming up. She also had mono since her last visit and states she has been a hot mess since her last visit. She showed me a picture and her eyes are doing some sort of change in shape. [employer] Utility Worker Required: No Allergies gluten Allergy (Mild, Verified 07/30/24 13:08) Unknown tamsulosin Allergy (Mild, Verified 07/30/24 13:08) Unknown omalizumab [From Xolair] Allergy (Verified 07/30/24 13:08) Anaphylaxis Beta-Blockers (Beta-Adrenergic Bloc Adverse Reaction (Severe, Verified 07/30/24 13:08) Blurry Vision alpha-blockers Adverse Reaction (Severe, Uncoded 07/30/24 13:08) Blurry Vision HPI HPI 6 month f/u: Details: 39 yr old f w hx of endometriosis, hashimotos thyroiditis, mast cell disorder, kingsley danlos syndrome seen for f/u RECAP: she had been on assisted ABx for lyme disease and was on diflucan she has had appendectomy and lysis of endometriosis in the past 06/2018 as well as vaginal manipulation for pelvic floor issues pain is RLQ and also pain in umbilical area she also has pain in epigastrium sitting can make pain worse when first had thought is was kidney stone due to severity, worse lying on that side, heat might help it no nausea or vomiting mush like stools since 06/2018, on probiotics she took omeprazole for 2 weeks for gerd but no longer needed she has tried flagy for the stool seemed to help a little she has been dx as interstitial cystitis and on various courses of abx for this she stays on gluten free diet, if takes gluten has terible pain she got shock wave therapy for sacral pain, didnlt really help told to ride it out, may get further injection therapy she is also having pain initally rlq now higher up, few spots she can identify as focally causing pain lusterer surgeon planning for further surgery entrapped ovary? 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 had complex UTI requiring ertapenam Iv for 2 weeks she is getting PT for her pains and aches She had treatment for lyme and got treatment from PCP shr got treatment with disulfiram and is ongoing potentially for months, things is helping some what she has word finding problems, expressive dysphasia she still has ongoing bladder infection issues and seeing Dr Rubio, has tried macrobid she had not tried cromolyn or black seed oil From office visit 03/2021 she had been having worsening migraines following up with her neurologist and lusterer, thinking to go back on OCP as feels it is hormonal she has tenderness in abdomen, and she has been told she has myofascial pain asking if I can give her trigger point injection (In EDS patients marcaine is more effective than lidocaine she has had ropivacaine in the past for other pain issues with good relief)she had been getting pelvic treatments for her pelvic pain she had recurrent UTI again with e coli and rickie, was getting treatment She finally had her trigger point injection using ropivacaine without the steroid seemed to help for 6 hours but came back she still has the same pain she has chronic SI joint pain-- has seen PT for this she has ongoing issues with migraines, getting quilpta with some relief feels losing hair due to the quilipta we had discussed using trental she was thinking about it she hasn;t started cromolyn at this time she had a lot of stress looking after dad, has shunt for NPH she still hasn;t started cromolyn, will start next week she has been having BP issues with HTN from Quilepta she has been taking candesartan and lower dose of quilipta she has been having issues with rickie infections - noted on pap smears she has been taking diflucan she had covid booster shot, but had post vaccine cough and needed inhalers etc DATA: Imaging and endoscopies: EGD: 03/2018--gastritis, normal duodenum colonoscopy--normal MRI: 03/2019--6.4 x 7.2 cm wedge shaped hyperemia, edema, ?anterior seg portal vein thrombosis, right, left main portal veins are patent numerous mesenteric LN, increased in size similar to prior study, spiculated soft tissue peritoneal lesion 1 x 1.8 cm ?related to endometriosis rept MRI 04/2019-- ?NOAH< transient arterial enhancement, normal portal veins, right ovarian cyst, normal pancreas, no cholelithiasis rept MRI 04/2020-- NOAH reduced, shotty LN and mesentry MRI 2021- NOAH< tobi mesentry with prominent LN MISC LAB TESTS: fecal calprotectin <15 gastrin neg glucagon neg metanephrines plasma and urine were both neg porphyria was neg RAST- pos for wheat, nuts, high IgE MARY--neg NOAH, perfusion defect, also on OCP, not keen on MRI with contrast, never had any solid tumour seen she had been on OCP for endometriosis INTERIM: she had mononucleosis in 02/27 sent her back due to the symptoms she saw her director of quantitative research as well, she had positional symptoms as well she had lyme testing with 4 bands but was told to take zinc and bed rest she had MRI of brain and c spine --prominent LN noted she has pain and discomfort in ruq and right shoulder she started cromolyn, but it gave her cramping--increased forceful bowel habits EXAM: GENERAL: The patient is well developed and nontoxic. VITAL SIGNS:see workflow HEENT: Nonicteric sclerae, PERRLA, EOMI. Oropharynx clear. Moist mucous membranes. Conjunctivae appear well perfused. No thyroid mass. CHEST: Chest wall is nontender. HEART: Regular rate and rhythm without murmurs. LUNGS: Clear to auscultation bilaterally. ABDOMEN: Soft, positive bowel sounds, ruq tenderness, no organomegaly.no flank tenderness SKIN: No rash, no excessive bruising, petechiae, or purpura. NEUROLOGIC: Cranial nerves II-XII intact without motor/sensory deficit. PSYCH--normal affect Assessment & Plan 1/ Complex issues, now with prolonged EBV sx, some improvement but LN on MRI 2/ RUQ pain and right shoulder pain, US -no stones PLAN: 1/ HIDA 2/ f/u PCP and ?trial of aciclovir, PFSH Medical History Thyroid disease Mast cell disorder H/o Lyme disease Interstitial cystitis Pelvic pain Endometriosis Complicated UTI (urinary tract infection) Surgical History Hx of colonoscopy History of esophagogastroduodenoscopy (EGD) History of surgery History of appendectomy History of laparoscopic appendectomy Family History Father History of cancer Family history of diabetes insipidus Mother No problems noted. Social History Household Members: Family Household Members Other:: Dad Alcohol intake: never Current occupational status: unemployed Physical Exam Vital Signs: Last Vital Signs Pulse 88 07/30/24 13:07 BP 114/75 07/30/24 13:07 BMI result Body Mass Index 20.5 Assessment & Plan Assessment & Plan (1) RUQ pain: Code(s): R10.11 - Right upper quadrant pain Category: Medical Plan: see above Orders: Orders NM hepatobiliary w pharm Today R10.11 - Right upper quadrant pain Coding Level of Care Code Est Pt Level 3 (43489) Diagnoses RUQ pain R10.11
--- OUTSIDE RECORDS SUMMARY | 2024-07-30 14:51 | XMS_ITS | Clinical Summary ---
Author Organization [facility] Address [address] [place] [address] Care Team Providers Care Food Production Manager Name Role Phone Unknown Primary Care Provider [phone] Social History Tobacco Use Types Packs/Day Years [...] Group Subscriber ID Effective Dates Phone Address [facility] [id number] [address] Care Teams Food Production Manager Relationship Specialty Start Date End Date Unknown Unknow Provider Address PCP - General 10/05/22
--- OUTSIDE RECORDS SUMMARY | 2024-07-30 14:51 | XMS_ITS | Data Portability ---
Author Organization [facility] Address [address] [place] [address] Assessment Encounter Date Assessment Date Assessment LastModified by Organization Details LastModified Time 04/05/2022 04/05/2022 Orthotic Goals: Yes?Provide Support Yes? ? ?Reduce Pain Other (please specify): The patient will [...] By Organization Details Last Modified Time 04/05/2022 [id number] [email or web address] Not available 04/05/2022 13:39:04 Reason for Referral None Reported. Procedures Surgical History Date Name Laterality Status Provider Name and Address Organization Details Recorded Time OTS Procedures completed MARTÍN Henning [address], [place], [address], [facility] 04/05/2022 13:36:51 Imaging Results None [...] SNOMED-CT Code Diagnosis ICD10 Code Diagnosis Note [id number] MARTÍN Henning [facility] [address] [place] [address] 04/05/2022 12:12:38 04/05/2022 13:46:16 Patellofemoral stress syndrome [id number] M22.2X2 Health Concerns Section Related Observation LastModified [...] MARTÍN Henning [address], [place], [address], [facility] 04/05/2022 13:39:16 OBGyn Episode No OBEpisode recorded.
--- OUTSIDE RECORDS SUMMARY | 2024-07-30 14:51 | XMS_ITS | Clinical Summary ---
Author Organization [facility] Address [address] [place] [address] Care Team Providers Care Certified Medical Coding Specialist Name Role Phone Pcp, No MD Primary [...] ANTHEM - OUT OF STATE Care Teams Certified Medical Coding Specialist Relationship Specialty Start Date End Date PcpAshley MD [address] [place] [address] PCP - General 08/03/17
--- OUTSIDE RECORDS SUMMARY | 2024-07-30 14:51 | XMS_ITS | Clinical Summary ---
Author Organization [address] Address [address] [place] [address] Phone Care Team Providers Care Guidance Consultant Name Role Phone Brittany Ramsey MD Primary Care Provider [phone] Allergies Active Allergy Reactions Criticality Noted Date [...] mouth. Active d-mannose powder 1,000 mg. 01/23/20 Active EPINEPHrine (EPIPEN) 0.3 mg/0.3 mL injection [...] EST [facility] [address] [facility] [address] Genoveva Ortiz CNM Vaginal discharge (Primary Dx); [...] care for your loved ones. For example, salesperson children's shoes or elderly care for an older adult? [...] AM EDT Office Visit Obstetrics and Gynecology [facility] [address] [place] [address] Elliott Ledezma, [facility] [address] [place] [address] Health Maintenance Due Date Last Done Comments [...] vaginalis Negative Negative 05/16/2024 7:15 PM EST [facility] Swab Vaginal structure / Unknown Non-blood Collection / Unknown 05/16/2024 3:47 PM EST 05/16/2024 3:47 PM EST Genoveva Ortiz CNM LAB MICROBIOLOGY - GENERAL ORDERABLES Final Result [facility] [address] [place] [address], [place] [phone] * Wet prep, genital (05/16/2024 3:47 PM EST) Clue Cells, Wet Prep Negative Negative 05/16/2024 6:52 PM EST [facility] Yeast, Wet Prep Negative Negative 05/16/2024 6:52 PM EST [facility] Trichomonas, Wet Prep Indeterminate Negative 05/16/2024 6:52 PM EST [facility] Comment:Refer to Trichomonas antigen. Swab Vaginal structure / Unknown Non-blood Collection / Unknown 05/16/2024 3:47 PM EST 05/16/2024 3:47 PM EST Genoveva BOWIE LAB MICROBIOLOGY - GENERAL ORDERABLES Final Result [facility] [address] [place] [address], * Pap Smear (03/03/2023) Pap smear NEGATIVE, ABSTRACTED Historical Provider HEALTH MAINTENANCE Final Result from Last 3 Months or Most Recently Relevant to Health Maintenance Insurance [facility] Care Teams Guidance Consultant Relationship Specialty Start Date End Date Brittany Ramsey MD [address] [place] [address] PCP - General Family Medicine 03/07/18
== END 2024-07-30 14:18 | disposition home or self-care (01) ==
PROVIDERS: PCP Internal Medicine; Visit Provider Internal Medicine Gastroenterology
DX: R10.11 Right upper quadrant pain (principal)
CPT/HCPCS: 99213

== ENCOUNTER → 2024-07-30 13:03 | Outpatient (BNVA) | payer OTHER, SELFPAY | PROVIDERS: PCP Internal Medicine; Visit Provider Internal Medicine Gastroenterology | DX: R10.11 Right upper quadrant pain (principal) | CPT/HCPCS: 99212 ==

== ENCOUNTER → 2024-08-08 07:53 | Outpatient (REF) | payer OTHER, SELFPAY ==
--- NOTE | ~2024-08-08 | NM_ITS ---
EXAMINATION: NM BILIARY TRACT CLINICAL INFORMATION: Right upper quadrant pain COMPARISON: Ultrasound abdomen with Elastography 07/23/2024 TECHNIQUE: Following intravenous administration of 5 mCi of technetium 99m mebrofenin mm, imaging over right upper quadrant was obtained up to 60 minutes. At 60 minutes 2.18 mcg of CCK was administered slowly over 30 minutes and imaging obtained for 30 minutes. FINDINGS: There is normal hepatic uptake without focal defects or enlargement. Common bile duct and small bowel is visualized by 8 to 10 minutes. Gallbladder is visualized by 20 minutes Post-CCK the gallbladder ejection fraction, At 10 minutes is 21% , At 20 minutes is 76% and At 30 minutes is 86%. NM/NM hepatobiliary w pharm IMPRESSION: Normal hepatic uptake. Patent CBD and cystic duct. Normal gallbladder the ejection fraction of 86% post CCK at 30 minutes Electronically signed by: Ricardo Hogan MD 08/08/2024 04:[address] [facility]
--- OUTSIDE RECORDS SUMMARY | 2024-08-08 08:02 | XMS_ITS | Data Portability ---
Author Organization [facility] Address [address] [place] [address] Assessment Encounter Date Assessment Date Assessment LastModified [...] By Organization Details Last Modified Time 04/05/2022 [id number] [email or web address] Not available 04/05/2022 13:39:04 Reason for Referral None Reported. Procedures Surgical History Date Name Laterality Status Provider Name and Address Organization Details Recorded Time OTS Procedures completed MARTÍN Henning [address], [place], [address], [facility] 04/05/2022 13:36:51 Imaging Results None [...] SNOMED-CT Code Diagnosis ICD10 Code Diagnosis Note [id number] MARTÍN Henning [address] [address] [place] [address] 04/05/2022 12:12:38 04/05/2022 13:46:16 Patellofemoral stress syndrome 592862072 M22.2X2 Health Concerns Section Related Observation LastModified [...] MARTÍN Henning [address], [place], [address], [facility] 04/05/2022 13:39:16 OBGyn Episode No OBEpisode recorded.
--- OUTSIDE RECORDS SUMMARY | 2024-08-08 08:02 | XMS_ITS | Clinical Summary ---
Author Organization [facility] Address [address] [place] [address] Care Team Providers Care Jack Spinner Name Role Phone Brittany Ramsey MD Primary Care Provider [phone] Allergies No known active allergies Medications No [...] age to complete this topic Care Teams Jack Spinner Relationship Specialty Start Date End Date Brittany Ramsey MD [address] [place] [address] PCP - General Family Medicine 03/07/18
--- OUTSIDE RECORDS SUMMARY | 2024-08-08 08:02 | XMS_ITS | Data Portability ---
Author Organization [facility] Address [address] [place] [address] Care Team Providers Care Lace Machine Operator Name Role Phone PAULINA AVILA Primary [...] Name and Address Organization Details Recorded Time 205724 wheat gluten extract food Not available Not available Not available 02/22/2024 [id number] RxNorm JESUSITA rowe, [facility] 10:02:43 [id number] wheat preparati on food,medi cation Not available Not available Not available 02/22/2024 [id number] 52 RxNorm JESUSITA rowe, [facility] 4 10:02:48 [id number] Xolair medicatio n Not available Not available Not available 02/22/2024 [id number] 7 RxNorm JESUSITA rowe, [facility] 4 10:02:59 Medications Name Sig Start Date [...] Updated DateTime 02/22/2024 177.8 cm 7.2 kg/m2 50997.62 g JESUSITA PABLO [place] - [facility] 02/22/2024 10:02:34 Date Recorded Body height Body mass index (BMI) Body weight Provider Name and Address Organization Details Last Updated DateTime 06/20/2024 177.8 cm 35.9 kg/m2 690292.09 g JESUSITA PABLO [place] - [facility] 06/20/2024 15:57:34 Social History None recorded. Functional Status None recorded. Mental Status None recorded. Family History Nothing Reported. Medical History Condition Response Thyroid Problems Y Gynecological HistoryNo gynecological history recorded. Obstetrics History GPAL:G 0 P 0 0 0 0 Past Encounters Encounter ID Performer Location Encounter Start Date Encounter Closed Date Diagnosis/Indication Diagnosis SNOMED-CT Code Diagnosis ICD10 Code Diagnosis Note [id number] MD Alaina Cole [address] [place] [address] 02/22/2024 08:56:46 03/14/2024 11:37:39 Bilateral carpal tunnel syndrome [id number] 2699381 G56.03 [id number] MD SHANNA ColeA - [facility] [address] [place] [address] 06/20/2024 15:52:40 07/04/2024 14:43:27 Bilateral carpal tunnel syndrome [id number] 0725309 G56.03 Health Concerns Section Related Observation LastModified by Organization Detai ls LastModified Time None Recorded Concern Status LastModified by Organization Details LastModified Time None Recorded Advance Directives Directive None Recorded Payers Encounter Date Sequence Insurance Name Policy Number Policy Locke Covered Member ID Locke Member ID Guarantor Name 02/22/2024 1 [facility] (MEDICAID REPLACEMENT - HMO) [id number] Venus Brianna Piteo [id number] Venus Brianna Piteo 06/20/2024 1 [facility] (MEDICAID REPLACEMENT - HMO) [id number] Venus A Piteo [id number] Venus Brianna Bernsteino Notes Date Note Type Note Provider Name and Address Organization Details Recorded Time 02/22/2024 text/html Diagnosis: Bilat eral carpal tunnel syndromeHistory of Amos-Danlos [id number] female who presents with numbness tingling and [...] to pursue surgical treatment. Alvaro Anderson MD [address] [place] [address] [address], [place], [address], [facility] - [facility] 02/22/2024 12:24:18 06/20/2024 text/html [...] to proceed with treatment. Alvaro Anderson MD [address] [place] [address] [address], [place], [address], [facility] - [facility] 06/20/2024 16:45:12 OBGyn Episode No OBEpisode recorded.
--- OUTSIDE RECORDS SUMMARY | 2024-08-08 08:02 | XMS_ITS | Clinical Summary ---
Author Organization [facility] Address [address] [place] [address] Care Team Providers Care Maintenance Engineer Name Role Phone Pcp, No MD Primary [...] ANTHEM - OUT OF STATE Care Teams Maintenance Engineer Relationship Specialty Start Date End Date PcpAshley MD [address] [place] [address] PCP - General 08/03/17
--- OUTSIDE RECORDS SUMMARY | 2024-08-08 08:02 | XMS_ITS | Clinical Summary ---
Author Organization [facility] Address [address] [place] [address] Care Team Providers Care Parimutuel Ticket Cashier Name Role Phone Unknown Primary Care Provider [phone] Social History Tobacco Use Types Packs/Day Years [...] 21-65) 2006 Influenza Vaccine 01/05/2024 COVID-19 Vaccine ( - 2023-2 5 season) 2024 06/25/2021, 01/03/2021, 12/13/2020 HPV Vaccines Aged Out No longer eligi ble based on patient's age to complete this topic Pneumococcal Vaccine: Pediatric (0-5 Years) and At-Risk Patients (6 to 49 Years) Aged Out No longer eligible b ased on patient's age to complete this topic Insurance Payer Benefit Plan / Group Subscriber ID Effective Dates Phone Address [facility] [id number] [address] Care Teams Parimutuel Ticket Cashier Relationship Specialty Start Date End Date Unknown Unknow Provider Address PCP - General 10/05/22
--- OUTSIDE RECORDS SUMMARY | 2024-08-08 08:02 | XMS_ITS | Continuity of Care Document ---
Author Organization [facility] Address [address] [place] [address] Care Team Providers Care Financial Administration Officer Name Role Phone Yaima Brizuela MD Primary Care Physician Encounter 07/27/24 - 07/28/[address] [id number] Attending Physician: Not on Staff, Attending MD Referring Physician: Not on Staff, Referring MD Encounter Type: SMRI Allergies, Adverse Reactions, Alerts Substance Criticality Severity Reaction Reaction Severity Status terazosin DIZZINESS Active Glutens Active Xolair anaphylaxis Active Immunizations Given and Recorded Vaccine Date Status Refusal Reason SARS-CoV-2(COVID-19)mRNA-LNP vac([id number]) 03/18/23 Recorded [id number] 12y+ bivalent booster vax 03/26/22 Recorded SARS-CoV-2 [...] 1 Refills, Maintenance, 01/18/24 4:13:00 PM EDT, [facility]/pharmacy #[id number], 178, cm, [...] Refills, Maintenance, 07/09/24 11:55:00 AM EST, Gel, [facility]/pharmacy #[id number], Partial fill upon [...] 11 Refills, Maintenance, 03/19/24 10:58:00 AM EDT, [facility]/pharmacy #[id number], Partial fill [...] Quantity: 30.0 Unit: tablet Repeat number: 3 ondansetron 4 mg oral tablet, disintegrating DISSOLVE 1 TABLET IN MOUTH EVERY 8 HOURS NEEDED FOR NAUSEA AND VOMITING (INS ONLY COVERS 1 DAILY) Start Date: 06/17/22 Status: Ordered Repeat number: 1 Pataday Once Daily Relief 0.2% ophthalmic solution 1 drops, Eyes, Both, Daily, # 2.5 mL, 1 Refills, Maintenance, 05/10/24 1:45:00 PM EST, [facility]/pharmacy #[id number], Partial fill upon [...] Refills, Maintenance, 08/03/23 1:17:00 PM EST, Tablet, [facility]/pharmacy #[id number], Partial [...] 11 Refills, Maintenance, 11/28/23 8:27:00 AM EDT, [facility] STORE [id number], 178, cm, 11/17/23 10:55:00 EDT, Height, 113, kg, 11/17/23 10:55:00 EDT, Dry Weight Start Date: 11/28/23 Status: Ordered Quantity: 6.1 Unit: each Repeat number: 1 zinc sulfate 66 mg oral tablet 1 tablet = 66 mg, By Mouth, 3 times a day, # 42 tablet, 5 Refills, Maintenance, 03/14/24 4:16:00 PM EDT, Tablet, [facility]/pharmacy #[id number], Partial [...] MOUTH AT BEDTIME NEEDED FOR INSOMNIA AURABINDO RN OCCUPATIONAL (Rx order must be sent to pharmacy ahead of time due to need for special order), # 30 tablet, 5 Refills, Maintenance, 02/07/24 1:20:00 PM EDT, [id number], AURABINDO RN OCCUPATIONAL ONLY PLEASE, 178,cm, 01/09/24 15:03:00 EDT, Height, [...] - Primary Care Member Role: PCP Address: [address] [place] [address] Telecom: Care Team Related Persons Name: AISHA ESTEVES Name: CECE ESTEVES Name: CECE NUÑEZ Insurance Providers Guarantor name: NITA DANIELITO Health Plan Information #: 1 Payer: [employer] Member Number: NA Policy Number: NA Group Number: NA
--- OUTSIDE RECORDS SUMMARY | 2024-08-08 08:02 | XMS_ITS | Clinical Summary ---
Author Organization [address] Address [address] [place] [phone] Phone Care Team Providers Care Photo Technologist Name Role Phone Brittany Ramsey MD Primary Care Provider Allergies Active Allergy Reactions Criticality Noted Date [...] EST Office [facility] [address] [facility] [place] [address] Genoveva Ortiz CNM Vaginal discharge (Primary Dx); [...] AM EDT Office Visit Obstetrics and Gynecology [facility] [address] [place] [address] Elliott Ledezma, [facility] [address] [place] [address] Health Maintenance Due Date Last Done Comments DTaP,Tdap,and Td Vaccines (1 - Tdap) 02/04/2004 Hepatitis B Vaccines (1 of 3 - 19+ 3-dose series) 02/04/2004 HIV Screening 05/15/2022 Hepatitis C Screening 05/15/2022 COVID-19 Vaccine ( season) 2024 03/18/2023, 03/26/2022, 06/25/2021, Additional history exists Influenza Vaccine (#1) 2024 Social Influencers of Health Screening 05/16/2025 05/16/2024 Depression Screening 08/06/2025 08/06/2024 Cervical Cancer Screening: Pap Smear 03/03/2026 03/03/2023 [...] vaginalis Negative Negative 05/16/2024 7:15 PM EST [facility] Swab Vaginal structure / Unknown Non-blood Collection / Unknown 05/16/2024 3:47 PM EST 05/16/2024 3:47 PM EST Genoveva Ortiz CNM LAB MICROBIOLOGY - GENERAL ORDERABLES Final Result [facility] [address] [place] [address], [place] [phone] * Wet prep, genital (05/16/2024 3:47 PM EST) Clue Cells, Wet Prep Negative Negative 05/16/2024 6:52 PM EST [facility] Yeast, Wet Prep Negative Negative 05/16/2024 6:52 PM EST [facility] Trichomonas, Wet Prep Indeterminate Negative 05/16/2024 6:52 PM EST [facility] Comment:Refer to Trichomonas antigen. Swab Vaginal structure / Unknown Non-blood Collection / Unknown 05/16/2024 3:47 PM EST 05/16/2024 3:47 PM EST Genoveva BOWIE LAB MICROBIOLOGY - GENERAL ORDERABLES Final Result [facility] [address] [place] [address], * Pap Smear (03/03/2023) Pap smear NEGATIVE, ABSTRACTED Historical Provider HEALTH MAINTENANCE Final Result from Last 3 Months or Most Recently Relevant to Health Maintenance Insurance [facility] Care Teams Photo Technologist Relationship Specialty Start Date End Date Brittany Ramsey MD [address] [place] [address] PCP - General Family Medicine 03/07/18
== END ==
LOC: HO.NUCMED 07:53
PROVIDERS: PCP Internal Medicine; Visit Provider Internal Medicine Gastroenterology
DX: R10.11 Right upper quadrant pain (principal)
CPT/HCPCS: 78227; A9537; J2805

== ENCOUNTER → 2024-08-08 07:54 | Outpatient (BNV) | payer OTHER, SELFPAY | PROVIDERS: PCP Internal Medicine; Visit Provider Radiology Diagnostic Radiology | DX: R10.11 Right upper quadrant pain (principal) | CPT/HCPCS: 78227 ==

== ENCOUNTER 2024-11-12 14:30 | Outpatient (REF) | payer OTHER, SELFPAY ==
[2024-11-12 16:37] LABS: MANUAL DIFF FLAG NO
[2024-11-12 17:08] LABS: Basophils Percent Auto 0.3 % (0-2); Eosinophils Percent Auto 0.4 % (0-4); Hematocrit 40.4 % (37.0-47.0); Hemoglobin 13.8 g/dl (12.0-16.0); Imm Gran Abs Auto 0.02 X10*3/uL (0.00-0.03); Imm Gran Pct Auto 0.3 % (0.0-0.4); Lymphocytes Absolute Auto 3.1 X10*3/uL (1.2-4.9); Lymphocytes Percent Auto 40.9 % (20-40); Mean Corpuscular HGB Conc 34.2 g/dl (31.0-35.0); Mean Corpuscular Hemoglobin 28.9 pg (27.0-33.0); Mean Corpuscular Volume 84.5 fL (80.0-98.0); Mean Platelet Volume 8.6 fL (9.4-12.3); Monocytes Absolute Auto 0.6 X10*3/uL (0.1-1.2); Monocytes Percent Auto 7.5 % (2-11); Neutrophils Absolute Auto 3.8 x10*3/uL (2.0-8.3); Neutrophils Percent Auto 50.6 % (45-73); Platelet Count 394 X10*3/uL (160-400); Red Blood Count 4.78 X10*6/uL (4.20-5.50); Red Cell Distribution Width 12.7 % (11.0-16.0); White Blood Count 7.5 X10*3/uL (4.8-10.8)
[2024-11-12 17:30] LABS: Alanine Aminotransferase 20 U/L (0-31); Albumin Level 4.9 g/dL (3.5-5.0); Alkaline Phosphatase 44 U/L (39-117); Anion Gap 14 (12-20); Aspartate Amino Transferase 23 U/L (5-31); Bilirubin Total 0.5 mg/dL (0.0-1.0); Blood Urea Nitrogen 12 mg/dL (9-16); Calcium 9.9 mg/dL (8.4-10.2); Carbon Dioxide 24 mmol/L (22-29); Chloride 106 mmol/L (96-108); Estimated Glomerular Filt Rate > 60; Glucose Random 93 mg/dL (60-115); Potassium 4.4 mmol/L (3.3-5.1); Sodium 140 mmol/L (135-145); Total Protein 7.8 g/dL (6.5-8.0)
== END 2024-11-12 14:31 | disposition home or self-care (01) ==
LOC: HO.LAB 14:30
PROVIDERS: PCP Internal Medicine; Visit Provider Internal Medicine Gastroenterology
DX: Z13.88 Encounter for screening for disorder due to exposure to contaminants (principal); R10.11 Right upper quadrant pain; K75.81 Nonalcoholic steatohepatitis (NASH)
CPT/HCPCS: 36415; 80053; 81375; 82542; 85025; 99212

== ENCOUNTER 2024-11-12 14:30 | Outpatient (AMB) | payer OTHER, SELFPAY ==
--- NOTE | 2024-11-12 15:05 | MHC.OFFVIS ---
Vital Signs 11/12/24 15:10 Height 5 ft 10 in Weight 240 lb BMI 34.4 BP 121/72 Blood Pressure Location Lt brachial Position Sitting Pulse 80 Pulse Oximetry (%) 96 Oxygen Delivery Method Room Air Intake Visit Reasons: 4 month f/u Intake Note: Patient 4 month follow up for abdominal pain. Patient cc: abdominal pain. Denies any GI issues. Manager Patient Required: No Accompanied by: Self / Same As Patient Allergies gluten Allergy (Mild, Verified 11/12/24 15:04) Unknown tamsulosin Allergy (Mild, Verified 11/12/24 15:04) Unknown omalizumab [From Xolair] Allergy (Verified 11/12/24 15:04) Anaphylaxis Beta-Blockers (Beta-Adrenergic Bloc Adverse Reaction (Severe, Verified 11/12/24 15:04) Blurry Vision alpha-blockers Adverse Reaction (Severe, Uncoded 07/30/24 13:08) Blurry Vision HPI HPI 4 month f/u: Details: 39 yr old f w hx of endometriosis, hashimotos thyroiditis, mast cell disorder, kingsley danlos syndrome seen for f/u RECAP: she had been on skilled nursing ABx for lyme disease and was on diflucan she has had appendectomy and lysis of endometriosis in the past 06/2018 as well as vaginal manipulation for pelvic floor issues pain is RLQ and also pain in umbilical area she also has pain in epigastrium sitting can make pain worse when first had thought is was kidney stone due to severity, worse lying on that side, heat might help it no nausea or vomiting mush like stools since 06/2018, on probiotics she took omeprazole for 2 weeks for gerd but no longer needed she has tried flagy for the stool seemed to help a little she has been dx as interstitial cystitis and on various courses of abx for this she stays on gluten free diet, if takes gluten has terible pain she got shock wave therapy for sacral pain, didnlt really help told to ride it out, may get further injection therapy she is also having pain initally rlq now higher up, few spots she can identify as focally causing pain 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 had complex UTI requiring ertapenam Iv for 2 weeks she is getting PT for her pains and aches She had treatment for lyme and got treatment from PCP shr got treatment with disulfiram and is ongoing potentially for months, things is helping some what she has word finding problems, expressive dysphasia she still has ongoing bladder infection issues and seeing Dr Rubio, has tried macrobid she had not tried cromolyn or black seed oil From office visit 03/2021 she had been having worsening migraines following up with her neurologist and assistant account executive, thinking to go back on OCP as feels it is hormonal she has tenderness in abdomen, and she has been told she has myofascial pain asking if I can give her trigger point injection (In EDS patients marcaine is more effective than lidocaine she has had ropivacaine in the past for other pain issues with good relief)she had been getting pelvic treatments for her pelvic pain she had recurrent UTI again with e coli and rickie, was getting treatment She finally had her trigger point injection using ropivacaine without the steroid seemed to help for 6 hours but came back she still has the same pain she has chronic SI joint pain-- has seen PT for this she has ongoing issues with migraines, getting quilpta with some relief feels losing hair due to the quilipta we had discussed using trental she was thinking about it she hasn;t started cromolyn at this time she had a lot of stress looking after dad, has shunt for NPH she still hasn;t started cromolyn, will start next week she has been having BP issues with HTN from Quilepta she has been taking candesartan and lower dose of quilipta she has been having issues with rickie infections - noted on pap smears she has been taking diflucan she had covid booster shot, but had post vaccine cough and needed inhalers etc DATA: Imaging and endoscopies: EGD: 03/2018--gastritis, normal duodenum colonoscopy--normal MRI: 03/2019--6.4 x 7.2 cm wedge shaped hyperemia, edema, ?anterior seg portal vein thrombosis, right, left main portal veins are patent numerous mesenteric LN, increased in size similar to prior study, spiculated soft tissue peritoneal lesion 1 x 1.8 cm ?related to endometriosis rept MRI 04/2019-- ?NOAH< transient arterial enhancement, normal portal veins, right ovarian cyst, normal pancreas, no cholelithiasis rept MRI 04/2020-- NOAH reduced, shotty LN and mesentry MRI 2021- NOAH< tobi mesentry with prominent LN MISC LAB TESTS: fecal calprotectin <15 gastrin neg glucagon neg metanephrines plasma and urine were both neg porphyria was neg RAST- pos for wheat, nuts, high IgE MARY--neg NOAH, perfusion defect, also on OCP, not keen on MRI with contrast, never had any solid tumour seen she had been on OCP for endometriosis HIDA: 86%-reported as normal INTERIM: she had mononucleosis in 02/27 still having issues with tonsils, PCP extended valciclovir treatment worried about mold exposure worried about adheisons and RUQ discomfort, no relation to food- maybe movement EXAM: GENERAL: The patient is well developed and nontoxic. VITAL SIGNS:see workflow HEENT: Nonicteric sclerae, PERRLA, EOMI. Oropharynx clear. Moist mucous membranes. Conjunctivae appear well perfused. No thyroid mass. CHEST: Chest wall is nontender. HEART: Regular rate and rhythm without murmurs. LUNGS: Clear to auscultation bilaterally. ABDOMEN: Soft, positive bowel sounds, ruq tenderness, no organomegaly.no flank tenderness SKIN: No rash, no excessive bruising, petechiae, or purpura. NEUROLOGIC: Cranial nerves II-XII intact without motor/sensory deficit. PSYCH--normal affect Assessment & Plan 1/ Complex issues, now with prolonged EBV sx, some improvement but LN on MRI 2/ RUQ pain and right shoulder pain, US -no stones --HIDA high but no typical sx of biliary disease -- PLAN: 1/ check HLA mold test and PFAS testing 2/ cont with PT PFSH Medical History Thyroid disease Mast cell disorder H/o Lyme disease Interstitial cystitis Pelvic pain Endometriosis Complicated UTI (urinary tract infection) Surgical History Hx of colonoscopy History of esophagogastroduodenoscopy (EGD) History of surgery History of appendectomy History of laparoscopic appendectomy Family History Father History of cancer Family history of diabetes insipidus Mother No problems noted. Social History Household Members: Family Household Members Other:: Dad Alcohol intake: never Current occupational status: unemployed Physical Exam Vital Signs: Last Vital Signs Pulse 80 11/12/24 15:10 BP 121/72 11/12/24 15:10 Pulse Ox 96 11/12/24 15:10 Oxygen Delivery Method Room Air 11/12/24 15:10 BMI result Body Mass Index 34.4 Assessment & Plan Assessment & Plan (1) RUQ pain: Code(s): R10.11 - Right upper quadrant pain Category: Medical Plan: as above Orders: Orders Other Ref Test - [facility] Today Z13.88 - Encounter for screening for disorder due to exposure to contaminants Coding Level of Care Code Est Pt Level 3 (87025) Diagnoses RUQ pain R10.11
[2024-11-12 15:10] VITALS: BP 121/72; PULSE 80; O2SAT 96; BMI 34.4
--- OUTSIDE RECORDS SUMMARY | 2024-11-12 16:22 | XMS_ITS | Data Portability ---
Author Organization [facility], [facility] Address [address] [place] [address] Care Team Providers Care Fruit Sorter Name Role Phone PAULINA AVILA Primary Care [...] Abnormal Flag Note LastModifiedBy Organization Detail LastModifiedTime 02/04/20 24 01/27/2022 imagi ng/di agnos tic resul t No observ ation record ed. [email or web address] Not Available 01/06 08:20:25 Result Notes None recorded. Medical Equipment None Reported. Allergies Allergen ID Allergen Name Allergen Category Reaction Reaction Severity Criticality Documentation Date Start Date Code Code System Note Provider Name and Address Organization Details Recorded Time 419697 wheat gluten extract food Not available Not available Not available 02/22/2024 12233 81 RxNorm JESUSITA PABLO [place], [facility] 4 10:02:43 754286 wheat preparati on food,medi cation Not available Not available Not available 02/22/2024 90324 52 RxNorm JESUSITA PABOL [place], [facility] 4 10:02:48 395440 Xolair medicatio n Not available Not available Not available 02/22/2024 14535 7 RxNorm JESUSITA rowe [place] - [facility] 4 10:02:59 Medications Name Sig Start [...] Updated DateTime 06/20/2024 177.8 cm 35.9 kg/m2 414917.09 g JESUSITA PABLO [facility] 06/20/2024 15:57:34 Date Recorded Body height Body mass index (BMI) Body weight Provider Name and Address Organization Details Last Updated DateTime 02/22/2024 177.8 cm 7.2 kg/m2 98709.62 g JESUSITA PABLO [facility] 02/22/2024 10:02:34 Social History None recorded. Functional Status None recorded. Mental Status None recorded. Family History Nothing Reported. Medical History Condition Response Thyroid Problems Y Gynecological HistoryNo gynecological history recorded. Obstetrics History GPAL:G 0 P 0 0 0 0 Past Encounters Encounter ID Performer Location Encounter Start Date Encounter Closed Date Diagnosis/Indication Diagnosis SNOMED-CT Code Diagnosis ICD10 Code Diagnosis Note [id number] MD Alaina Cole [address] [place] [address] 02/22/2024 08:56:46 03/14/2024 11:37:39 Bilateral carpal tunnel syndrome 6099405370 [id number] G56.03 [id number] MD JONE [facility] - [facility] [address] [place] [address] 06/20/2024 15:52:40 07/04/2024 14:43:27 Bilateral carpal tunnel syndrome [id number] 0648222 G56.03 Health Concerns Section Related Observation LastModified by Organization Detai ls LastModified Time None Recorded Concern Status LastModified by Organization Details LastModified Time None Recorded Advance Directives Directive None Recorded Payers Encounter Date Sequence Insurance Name Policy Number Policy Locke Covered Member ID Locke Member ID Guarantor Name 02/22/2024 1 [facility] (MEDICAID REPLACEMENT - HMO) [id number] Venus A Piteo [id number] [employer] 06/20/2024 1 [facility] (MEDICAID REPLACEMENT - HMO) [id number] Venus A Piteo [id number] Venus [employer] P[employer] Notes Date Note Type Note Provider Name and Address Organization Details Recorded Time 02/22/2024 text/html Diagnosis: Bilat eral carpal tunnel syndromeHistory of Amos-Danlos [id number] female who presents with numbness tingling and [...] to pursue surgical treatment. Alvaro Anderson MD [address] [place] [address] [address], [place], [address], [facility] 02/22/2024 12:24:18 06/20/2024 text/html [...] to proceed with treatment. Alvaro Anderson MD [address] [place] [address] [address], [place], [address], [facility] 06/20/2024 16:45:12 OBGyn Episode No OBEpisode recorded.
== END 2024-11-13 08:39 | disposition home or self-care (01) ==
LOC: HO.HGI 14:30
PROVIDERS: PCP Internal Medicine; Visit Provider Internal Medicine Gastroenterology
DX: R10.11 Right upper quadrant pain (principal)
CPT/HCPCS: 99213

== ENCOUNTER 2025-01-08 11:00 | Outpatient (AMB) | payer OTHER, SELFPAY ==
--- OUTSIDE RECORDS SUMMARY | 2025-01-05 23:59 | XMS_ITS | Continuity of Care Document ---
Author Organization [facility] Address [address] [place] [address]- Care Team Providers Care Joiner Apprentice Name Role Phone Alistair HUGHES, [facility] Physician [phone] [place] [facility] Date[place]s): 12/06/24 - 01/05/25 [facility] [address] [place], [place] [address] Encounter Type: Triage Allergies, Adverse Reactions, Alerts Substance Criticality Severity Reaction Reaction Severity Status terazosin DIZZINESS Active Glutens Active Xolair anaphylaxis Active Immunizations Given and Recorded Vaccine Date Status Refusal Reason SARS-CoV-2(COVID-19)mRNA-LNP vac(dtq249) 03/18/23 Recorded [id number] 12y+ bivalent booster vax 03/26/22 Recorded SARS-CoV-2 [...] Quantity: 90.0 Unit: tablet Repeat number: 1 azelastine 0.05% ophthalmic solution 1 drops, Eyes, Both, 2 times a day, PRN for allergy symptoms, # 6 mL, 6 Refills, Maintenance, 10/11/24 11:57:00 AM EDT, [facility]/pharmacy [facility][id number], Partial fill upon patient request if the prescription is for a schedule II opioid drug., 1 drops Eyes, Both 2 times a day,PRN:for allergy symptoms, 178, cm, 10/11/24 11:04:00 EDT, Height, 110, kg, 10/11/24 11:04:00 EDT, Dry Weight Start Date: 10/11/24 Status: Ordered Quantity: 6.0 Unit: mL Repeat number: 7 candesartan 4 mg oral tablet 1/2 TO 1 TABLET, By Mouth, Daily, # 90 tablet, 1 Refills, Maintenance, 08/17/24 11:45:00 AM EDT, [facility]/pharmacy #[id number], 178, cm, 08/17/24 9:05:00 EDT, Height, 110.1, kg, 07/09/24 10:49:00 EST, Dry Weight Start Date: 08/17/24 Status: Ordered Quantity: 90.0 Unit: tablet Repeat [...] Refills, Maintenance, 07/09/24 11:55:00 AM EST, Gel, [id number], Partial fill upon patient request if the prescription is for a schedule II opioid drug., 178, cm, 07/09/24 10:49:00 EST, Height, 110.1, kg, 07/09/24 10:49:00 EST, Dry Weight Start Date: 07/09/24 Status: Ordered Quantity: 100.0 Unit: g Repeat number: 3 epinastine 0.05% ophthalmic solution 1 drops, Eyes, Both, 2 times a day, # 5 mL, 0 Refills, Maintenance, 11/22/24 3:56:00 PM EDT, [facility]/pharmacy #[id number], Partial fill upon patient request if the prescription is for a schedule II opioid drug., 1 drops Eyes, Both 2 times a day, 178, cm, 10/19/24 8:42:00 EDT, Height, 110, kg, 10/11/24 11:04:00 EDT, Dry Weight Start Date: 11/22/24 Status: Ordered Quantity: 5.0 Unit: mL Repeat number: 1 Fish Oil By Mouth, [...] 11 Refills, Maintenance, 03/19/24 10:58:00 AM EDT, [facility]/pharmacy #[id number], Partial fill upon patient request if the prescription is for a schedule II opioid drug., 2 sprays Nares, Both 2 times a day, 178, cm, 03/10/24 15:24:00 EDT, Height, 112, kg, 03/08/24 11:00:00 EDT, Dry Weight Start Date: 03/19/24 Status: Ordered Quantity: 25.0 Unit: mL Repeat number: 12 Indications: Other allergic rhinitis; Folic Acid = 100 mcg, Daily, 0 [...] Refills, Maintenance, 08/25/22 3:57:00 PM EDT, Solution, [facility]/pharmacy #0859, Partial [...] Moderate, # 30 tablet, 2 Refills, Maintenance, 256:12:00 PM EST, Tablet, [facility], Partial fill [...] 1 Qulipta 30 mg oral tablet 1 tablet, By Mouth, Daily, # 90 tablet, 3 Refills, Maintenance, 08/27/24 2:37:00 PM EDT, [id number], 178, cm, 08/17/24 9:05:00 EDT, Height, 110.1, kg, 07/09/24 10:49:00 EST, Dry Weight Start Date: 08/27/24 Status: Ordered Quantity: 90.0 Unit: tablet Repeat number: 1 Tessalon Perles = 100 mg, By Mouth, [...] 11 Refills, Maintenance, 11/28/23 8:27:00 AM EDT, [id number], 178, cm, 11/17/23 10:55:00 EDT, Height, 113, [...] number: 6 zolpidem 10 mg oral tablet 1 tablet = 10 mg, By Mouth, Daily at bedtime, PRN as needed for insomnia, # 30 tablet, 0 Refills, Maintenance, 12/24/24 12:45:00 PM EDT, [id number], [employer] ONLY PLEASE, 178, cm, 12/18/24 14:56:00 EDT, Height, 110, kg, 10/11/24 11:04:00 EDT, Dry Weight Start Date: 12/24/24 Stop Date: 01/23/25 Status: Ordered Quantity: 30.0 Unit: tablet Repeat number: 1 zolpidem 10 mg oral tablet See Instructions, TAKE 1 TABLET BY MOUTH AT BEDTIME NEEDED FOR INSOMNIA [employer] (Rx order must be sent to pharmacy ahead of time due to need for special order), # 30 tablet, 5 Refills, Maintenance, 02/07/24 1:20:00 PM EDT, [id number], [employer] ONLY PLEASE, 178,cm, 01/09/24 15:03:00 EDT, Height, [...] Abdominal discomfort Confirmed Active Acne Confirmed Active Allergic rhinitis Confirmed Active Carpal [...] Care team information Care Team Personnel Name: Ellie Sainz MD Position: [facility] Physician - Primary Care Member Role: PCP Address: [address] [place] [address] [facility] [address] Telecom: Care Team Related Persons Name: AISHA ESTEVES Name: CECE ESTEVES Name: CECE NUÑEZ Insurance Providers Guarantor name: NITA ESTEVES Health Plan Information #: 1 Payer: [employer] Payer Identifier: ILYA Member Number: [id number] Group Number: [id number] Subscriber Identifier: [id number] Relationship to Subscriber: self Coverage Type: Medicaid (Managed Care) Coverage Verification Date: ILYA Telecom: ILYA Address:
--- NOTE | 2025-01-08 11:07 | A.OFFVIS_ITS ---
Intake Visit Reasons: Follow up Intake Note: Patient is present for follow up for Candidiasis Urology meds : voriconazole BT: none Slate Picker Required: No Accompanied by: Self / Same As Patient Allergies gluten Allergy (Mild, Verified 01/08/25 11:15) Unknown tamsulosin Allergy (Mild, Verified 01/08/25 11:15) Unknown omalizumab (From Xolair) Allergy (Verified 01/08/25 11:15) Anaphylaxis Beta-Blockers (Beta-Adrenergic Bloc Adverse Reaction (Severe, Verified 01/08/25 11:15) Blurry Vision alpha-blockers Adverse Reaction (Severe, Uncoded 07/30/24 13:08) Blurry Vision HPI Comments Details: Venus is a pleasant female. She is a patient of Dr. Brizuela. 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 - recurrent UTI Telemedicine Evaluation 15 min Consultation [employer] Fara Request reconsideration of medical testing through [facility] 03/29 Microgen - Enterococcus/Streptococcus - Resistant Amp/Ceph/Aug - Rickie Glabrata - trial variconazole - 10 days 10/27 Stable with vitamin C, cran caps and d-mannose - labial cyts which have pain - relatively stable regarding bladder 04/28 Itraconazole - did have interaction with migraine medications - atogepant 01/26 Microgen - EColi positive - Augmentin 2 weeks - 90% response - vaginal rickie - persistent symptoms - would like to proceed with 7 days antibiotics plus fluconazole - discussed UTI vaccine which has some availability under special access program 2021 Had manual therapy evaluation [facility] for Amos-Danlos syndrome with question of high tone pelvic issues Urinary Tract Infection: Ongoing issues with recurring UTI Completed pelvic floor PT which was beneficial with Lydiasrinivasan Marie 2019 They present for followup evaluation for, recurrent UTI's September 2018 - excisional surgery for endometriosis - improvement but pain on right - did have skeletonization - has been having pelvic floor therapy and accupuncture - had good PT when living in [facility] ([place]). The first infection began - complicated medical history - IC diagnosis in early s - ongoing issues with endometriosis - multiple excisional surgeries - question of UTI with symptoms. Severity of the symptom(s) that is moderate. Gynecologic history: , 0, Para, 0. Therapy has included symptomatic use of antibiotics - multiple antibiotics have been tried - Aim for suppression with methenamine - using [facility] approach of prolonged use of trimethoprim or fosfomycin Prior cultures have shown 05/23 Microgen - unusual path with clindamycin sensitive bacteria 03/24 microgen Enterococcus faecalis - 06/26 Microgen - Klebsiella and Enterococcus no E coli - 08/24 Klebsiella positive with resistance pattern - 01/24 Klebsiella and Enterococcus - on foscfomycin and methanamine - 02/24 E coli with Levaquin resistance, rickie - 03/26 NAD - 06/27 lactobacillus - 11/25 Enterococcus and E coli - Bactrim and Augmentin - 03/27 and 04/27 - Level 1 Prevotella Level 2 mixed predominate Lactobacillius Relevant medical history Amos-Danlos syndrome with suppressed immune system. Endometriosis. - chronic Lyme therapy - interstitial cystitis [facility] Medical History Thyroid disease Mast cell disorder H/o Lyme disease Interstitial cystitis Pelvic pain Endometriosis Complicated UTI (urinary tract infection) Surgical History Hx of colonoscopy History of esophagogastroduodenoscopy (EGD) History of surgery History of appendectomy History of laparoscopic appendectomy Family History Father History of cancer Family history of diabetes insipidus Mother No problems noted. Social History Household Members: Family Household Members Other:: Dad Alcohol intake: never Current occupational status: unemployed Results AMB Urinalysis, Automated UA Leukoctes 125 Anna/uL Last Edit by Aurelia Quesada MA on 01/08/25 17:00 UA Nitrite Negative Last Edit by Aurelia Quesada MA on 01/08/25 17:00 UA Urobilinogen 0.2 mg/dL Last Edit by Aurelia Quesada MA on 01/08/25 17:00 UA Protein 0 mg/dL Last Edit by Aurelia Quesada MA on 01/08/25 17:00 UA pH 7.5 Last Edit by Aurelia Quesada MA on 01/08/25 17:00 UA Blood 10 Omar/uL Last Edit by Aurelia Quesada MA on 01/08/25 17:00 UA Specific [place] 1.005 Last Edit by Aureliaradha Quesada, MA on 01/08/25 17:00 UA Ketone Negative Last Edit by Aurelia Quesada, MA on 01/08/25 17:00 UA Bilirubin 0 mg/dL Last Edit by Aurelia Dipak, MA on 01/08/25 17:00 UA Glucose 0 mg/dL Last Edit by Aurelia Quesada, FARAZ on 01/08/25 17:00 Results Reviewed Results Reviewed: Laboratory Last Values Urine pH (Auto) 7.5 01/08/25 16:43 Specific [place] (Auto) 1.005 01/08/25 16:43 Urine Protein (Auto) 0 mg/dL 01/08/25 16:43 Glucose (UA)(Auto) 0 mg/dL 01/08/25 16:43 Urine Ketones (Auto) Negative 01/08/25 16:43 Urine Blood (Auto) 10 Omar/uL 01/08/25 16:43 Urine Nitrite (Auto) Negative 01/08/25 16:43 Urine Bilirubin (Auto) 0 mg/dL 01/08/25 16:43 Urine Urobilinogen (Auto) 0.2 mg/dL 01/08/25 16:43 Leukocyte Esterase (Auto) 125 Anna/uL 01/08/25 16:43 Assessment & Plan Assessment & Plan Orders: Orders AMB Urinalysis Automated 01/08/25 N30.10 - Interstitial cystitis (chronic) without hematuria, N39.0 - Urinary tract infection, site not specified, R30.0 - Dysuria Coding
--- OUTSIDE RECORDS SUMMARY | 2025-01-08 11:47 | XMS_ITS ---
Author Name [facility] Organization Unknown Problems Problem Status Onset Date Problem Type Date of Resoluti on Source Amos-Danlos disease active EncounterDiagnosisAct CCT Encounters Encounter Type Encounter Reason Primary Diagnosis Location Date Ambulatory Amos-Danlos syndrome, unspecified [facility] 10/05/2022 Ambulatory Amos-Danlos syndrome, unspecified [facility] 09/01/2022 Care Team Organization Name Specialty Phone Email Start Date End [facility] 11/05/2022 [facility] 10/05/2022 [facility] 09/01/2022 10/05/2022 [facility] System,Provider Primary Care 09/01/2022 [place] [facility] PROVIDER SYSTEM Primary Care [facility]
--- OUTSIDE RECORDS SUMMARY | 2025-01-08 11:47 | XMS_ITS | Clinical Summary ---
Author Organization [facility] Address [address] [address] Phone Care Team Providers Care Concrete Mason Name Role Phone Pcp, Not Required Primary Care Provider Unavaila ble Allergies Active Allergy Reactions Criticality Noted Date Comments Gluten 06/13/2018 Medications loratadine (CLARITIN) 10 mg tablet Take by mouth. Active cetirizine (ZYRTEC) 10 MG tablet Take by mouth. Active liothyronine (CYTOMEL) 25 MCG tablet 3 (three) times a day. 09/05/2018 Active omega-3 fatty acids-fish oil 300-1,000 mg Cap Take 2 g by mouth. Active zolpidem (AMBIEN) 10 mg tablet Take 10 mg by mouth. 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 PMS (premenstrual syndrome) Tommy's disease Family History Medical History Relation Comments Glaucoma Father glaucoma Hypertension Father hypertension Inflammatory bowel disease Father Infla mmatory bowel disease Uncoded Family History Father skin canc er Alcohol use disorder Mother Alcohol abu se Hyperlipidemia Mother Hyperlipidemia Type 2 Diabetes Paternal Grandfather diabetes me llitus type 2 Relation Status Comments Father Mother Paternal Grandfather Social History Tobacco Use Types Packs/Day Years Used Date Smoking Tobacco: Never Smokeless Tobacco: Never Alcohol Use Standard Drinks/Week Comments Never 0 (1 standard drink = 0.6 oz pur e alcohol) Education Answer Date Recorded Are you interested in more education? Not on deondre e 09/30/2022 Are you concerned about learning? Not on file 09/30/2022 No 09/30/2022 No 09/30/2022 Digital Access Answer Date Recorded No 11/01/2022 No 11/01/2022 No 11/01/2022 Reliable internet access at home? Not on file 11/01/2022 Device with a working camera? Not on file Comments Unknown Sex and Gender Information Value Date Recorded Sex Assigned at Female 10/02/2019 10:08 AM EDT Legal Sex Female 7:17 PM EST Gender Identity Female 10/02/2019 10:08 AM EDT Sexual Orientation Not on file Last Filed Vital Signs Vital Sign Reading Time Taken Comments Blood Pressure 120/81 05/24/2011 2:13 PM EST Pulse 98 05/24/2011 2:13 PM EST Temperature - - Respiratory Rate - - Oxygen Saturation - - Inhaled Oxygen Concentration - - Weight 111.1 kg (245 lb) 05/24/2011 2:13 PM EST Height 177.8 cm (5' 10 ) 05/24/2011 2:13 PM EST Body Mass Index 35.15 05/24/2011 2:13 PM EST Plan of Treatment Health Maintenance Due Date Last Done Comments Adult Td,Tdap Booster 1985 TSH LEVEL 1985 DEPRESSION SCREENING 1997 HEPATITIS C SCREENING 2003 HIV ONE-TIME SCREENING (18-6 5 YEARS) 2003 PAP SMEAR 2006 SMOKING STATUS SCREENING (On ce After 26 Yrs) 2011 COVID-19 VACCINE (3 - 2023-2 5 season) 2024 01/03/2021, 12/13/2020 HEPATITIS A VACCINES Aged Out No long er eligible based on patient's age to complete this topic HIB VACCINES Aged Out No longer eligi ble based on patient's age to complete this topic MENINGOCOCCAL VACCINES (ACWY) Aged Out No longer eligible based on patient's age to complete this topic MENINGOCOCCAL VACCINES (B) Aged Out N o longer eligible based on patient's age to complete this topic PNEUMOCOCCAL VACCINES (0-49 years) Aged Out No longer eligible b ased on patient's age to complete this topic Medical Devices Not on file Insurance [employer] [address] [address] [place], [place] [address] [employer] [place] [employer] [address] [place] [address] [place] [employer] [employer] [address] [address] [place] [address] [employer] Care Teams Concrete Mason Relationship Specialty Start Date End Date Pcp, Not Required [address] [place] [id number] PCP - General 06/29/13 Additional Source Comments The information contained in this document represents components of the legal health record. It is not the complete legal health record.[facility]
--- OUTSIDE RECORDS SUMMARY | 2025-01-08 11:47 | XMS_ITS | Clinical Summary ---
Author Organization [facility] Address [address] [place] [id number] Care Team Providers Care Quality Project Manager Name Role Phone Pcp, No MD Primary [...] 2023-2 5 season) 2024 Influenza Vaccine (#1) 2025 Zoster Vaccines (1 of 2) 2035 HPV [...] 5 Years) and At-Risk Patients (6 to 49 Years) Aged Out No longer eligible b ased on patient's age to complete this topic Insurance [employer] - OUT OF STATE Care Teams Quality Project Manager Relationship Specialty Start Date End Date PcpAshley MD [address] [place] [address] PCP - General 08/03/17
--- OUTSIDE RECORDS SUMMARY | 2025-01-08 11:47 | XMS_ITS | Clinical Summary ---
Author Organization [facility] [address] [facility] [address] Address [address] [place] [address] Phone Care Team Providers Care Leather Roller Name Role Phone Brittany Ramsey MD Primary Care Provider [phone] Allergies Active Allergy Reactions Criticality Noted Date Comments Gluten 06/13/2018 Omalizumab Anaphylaxis High 06/11/2020 Pollen Extracts 11/28/2019 Terazosin Dizziness 03/03/2023 Wheat 03/11/2021 Medications Qulipta 30 mg tablet Take 1 [...] affected area 45 g 05/16/20 24 Active norethindrone ac-eth estradio (Junel ,) 1.5-30 mg-mcg per tablet Take 1 tablet by mouth 1 (one) time each day. 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 Hypothyroidism 05/13/2024 Mast cell disease 05/13/2024 PCOS (polycystic ovarian syndrome) 05/13/2024 Surgical History Surgery Date Site/Laterality Comments OTHER SURGICAL HISTORY PROCEDURE: ---- OTHER ----; COMMENT: laparosopy and removal of endometriosis Medical History Medical History Date Comments Hypothyroidism DX:Hypothyroidis m PCOS (polycystic ovarian syndrome) DX:PCOS (polycystic ovarian syndrome) Endometriosis DX:Endometriosis Aoms-Danlos syndrome DX:Amos -Danlos syndrome Tommy's thyroiditis DX:Antonieta [...] care for your loved ones. For example, childcare worker or elderly care for an older adult? [...] Sign Reading Time Taken Comments Blood Pressure 126/79 08/13/2024 8:54 AM EDT Pulse 95 08/13/2024 8:54 AM EDT Temperature - - Respiratory Rate 15 05/16/2024 2:39 PM EST Oxygen Saturation - - Inhaled Oxygen Concentration - - Weight 111 kg (245 lb) 08/13/2024 8:54 AM EDT Height 177.8 cm (5' 10 ) 05/16/2024 2:39 PM EST Body Mass Index 35.15 05/16/2024 2:39 PM EST Plan of Treatment Upcoming Encounters Date Type Department Care Team ([facility] st Contact Info) Description 02/25/2025 4:30 PM EDT Appointment Radiology Department [address] [phone] Health Maintenance Due Date Last Done Comments DTaP,Tdap,and Td Vaccines (1 - Tdap) 02/04/2004 Hepatitis B Vaccines (1 of 3 - 19+ 3-dose series) 02/04/2004 HIV Screening 05/15/2022 Hepatitis C Screening 05/15/2022 COVID-19 Vaccine ( season) 2024 03/18/2023, 03/26/2022, 06/25/2021, Additional history exists Influenza Vaccine (#1) 2025 Social Influencers of Health Screening 05/16/2025 05/16/2024 Cervical Cancer Screening: Pap Smear 03/03/2026 03/03/2023 Depression Screening Completed 08/12/2024 HIB Vaccines Aged Out No longer eligi [...] age to complete this topic Meningococcal B Vaccine Aged Out No l onger eligible based on patient's age to complete this topic Pneumococcal Vaccine: Pediatrics (0 to 5 Years) and At-Risk Patients (6 to 49 Years) Aged Out No longer eligible based on patient's age to complete this topic RSV Immunization Patients Under 20 months Aged Out No longer eligible based on patient's age to complete this topic Varicella Vaccines Aged Out No longer eligible based on patient's age to complete this topic Procedures Procedure Name Priority Date/Time Associated Diagnosis Comments PAP SMEAR Routine 03/03/2023 from Last 3 Months or Most Recently Relevant to Health Maintenance Results * Pap Smear (03/03/2023) Pap smear NEGATIVE, ABSTRACTED us Historical Provider MD HEALTH MAINTENANCE Final Result from Last 3 Months or Most Recently Relevant to Health Maintenance Insurance [facility] Care Teams Leather Roller Relationship Specialty Start Date End Date Brittany Ramsey MD [address] [place] [address] PCP - General Family Medicine 03/07/18
--- OUTSIDE RECORDS SUMMARY | 2025-01-08 11:47 | XMS_ITS | Clinical Summary ---
Author Organization [facility] Address [address] [place] [address] Care Team Providers Care Oracle Ebs Developer Name Role Phone Unknown Primary Care Provider [phone] Social History Tobacco Use Types Packs/Day Years Used Date Smoking Tobacco: Never Assessed Comments Unknown Sex and Gender Information Value Date Recorded Sex Assigned at Female 08/19/2022 3:21 PM EDT Legal Sex Female 5:54 PM EDT Gender Identity Female 08/19/2022 3:21 PM EDT Sexual Orientation Heterosexual (straight) 10/05 10:49 AM EDT Plan of Treatment Health Maintenance Due Date Last Done Comments Hepatitis C Virus Screening 1985 HIV Screening 1998 DTaP/Tdap/Td Vaccines (1 - Tdap) 02/04/2004 Hepatitis B Vaccines (1 of 3 - 19+ 3-dose series) 02/04/2004 Pap Smear (Ages 21-65) 2006 COVID-19 Vaccine (2023-2 5 season) 2024 06/25/2021, 01/03/2021, 12/13/2020 Influenza Vaccine 01/04/2025 HPV Vaccines Aged Out No longer eligi ble based on patient's age to complete this topic Pneumococcal Vaccine: Pediatric (0-5 Years) and At-Risk Patients (6 to 49 Years) Aged Out No longer eligible b ased on patient's age to complete this topic Insurance [facility] Care Teams Oracle Ebs Developer Relationship Specialty Start Date End Date Unknown Unknow Provider Address PCP - General 10/05/22
--- OUTSIDE RECORDS SUMMARY | 2025-01-08 11:47 | XMS_ITS | Clinical Summary ---
Author Organization [facility] Address [address] [place] [address] Care Team Providers Care Project Planner Name Role Phone Brittany Ramsey MD Primary Care Provider Allergies No known active allergies Medications No [...] (P ap Smear) 2006 Influenza Vaccine (#1) 2025 Pneumococcal Vaccine Aged Out No long er eligible based on patient's age to complete this topic RSV Ped < 20 months Aged Out No longe r eligible based on patient's age to complete this topic Care Teams Project Planner Relationship Specialty Start Date End Date Brittany Ramsey MD [address] [place] [address] PCP - General Family Medicine 03/07/18
== END 2025-01-08 12:36 | disposition home or self-care (01) ==
LOC: HO.HUSH 11:00
PROVIDERS: PCP Internal Medicine; Visit Provider Urology
DX: N39.0 Urinary tract infection, site not specified (principal); N30.10 Interstitial cystitis (chronic) without hematuria; R30.0 Dysuria

== ENCOUNTER → 2025-01-08 11:00 | Outpatient (BNVA) | payer OTHER, SELFPAY | PROVIDERS: PCP Internal Medicine; Visit Provider Urology | DX: N30.10 Interstitial cystitis (chronic) without hematuria (principal); R30.0 Dysuria | CPT/HCPCS: 81003 ==

== ENCOUNTER 2025-03-25 12:13 | Outpatient (AMB) | payer OTHER, SELFPAY ==
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
[2025-03-25 12:19] VITALS: BP 116/66; PULSE 73; O2SAT 99; BMI 34.4
== END 2025-03-25 13:14 | disposition home or self-care (01) ==
LOC: HO.HGI 12:14
PROVIDERS: PCP Internal Medicine; Visit Provider Internal Medicine Gastroenterology
DX: M79.18 Myalgia, other site (principal)
CPT/HCPCS: 99213

== ENCOUNTER → 2025-03-25 12:13 | Outpatient (BNVA) | payer OTHER, SELFPAY | PROVIDERS: PCP Internal Medicine; Visit Provider Internal Medicine Gastroenterology | DX: M79.18 Myalgia, other site (principal) | CPT/HCPCS: 99212 ==

== ENCOUNTER 2025-04-25 09:25 | Outpatient (AMB) | payer OTHER, SELFPAY ==
--- NOTE | 2025-04-25 09:27 | MHC.OFFVIS ---
Vital Signs 04/25/25 09:37 Height 5 ft 10 in Weight 240 lb BMI 34.4 BP 131/43 L Blood Pressure Location Rt brachial Position Sitting Pulse 97 Intake Visit Reasons: pilonidal sinus Intake Note: This patient was referred by Dr. Cline for an assessment for pilonidal cyst. Patient c/o: painful when flaring. Cyst comes and goes X1yr. Reports OB-VESSEL SLAG WORKER swabbed area but nothing grew. Vendor Management Associate Required: No Accompanied by: Self / Same As Patient Allergies gluten Allergy (Mild, Verified 04/25/25 09:33) Unknown tamsulosin Allergy (Mild, Verified 04/25/25 09:33) Unknown omalizumab (From Xolair) Allergy (Verified 04/25/25 09:33) Anaphylaxis Beta-Blockers (Beta-Adrenergic Bloc Adverse Reaction (Severe, Verified 04/25/25 09:33) Blurry Vision alpha-blockers Adverse Reaction (Severe, Uncoded 04/25/25 09:33) Blurry Vision HPI HPI pilonidal sinus: Details: [age] year old female referred for a question of a pilonidal cyst. She is following valve lapper because of multiple GI complaints including chronic lower abdominal pain. She has known endometriosis and has had multiple surgeries for this She is also chronic pain on her back, and sacral area. She was therefore referred to me because of a possible pilonidal cyst as she had describes some skin breakdown drainage in the past She currently denies any swelling or pain in the area . She denies any purulent drainage as well. She admits to so many pain issues all over her body. She had been diagnosed to have myofascial pain and a mass cell disorder. [facility] Medical History (Updated 04/25/25 @ 09:56 by Enrique Rosario MD) Chronic pain Thyroid disease Mast cell disorder H/o Lyme disease Interstitial cystitis Pelvic pain Endometriosis Complicated UTI (urinary tract infection) Surgical History Hx of colonoscopy History of esophagogastroduodenoscopy (EGD) History of surgery History of appendectomy History of laparoscopic appendectomy Family History Father History of cancer Family history of diabetes insipidus Mother No problems noted. Social History (Reviewed 04/25/25 @ 09:35 by LEONEL Thompson Household Members: Family Household Members Other:: Dad Alcohol intake: never Current occupational status: unemployed Review of Systems Const Details: Chronic pain issues, generalized Denies chills and Denies fever(s) Card Denies chest pain, Denies dyspnea and Denies dyspnea on exertion Resp Denies cough, Denies dyspnea and Denies dyspnea on exertion GI Denies hematochezia and Denies change in bowel habits Denies hematuria Musc Reports back pain, Reports myalgias and Denies limited range of motion Neuro Denies focal weakness and Denies convulsions Psych Denies depression and Denies mood swings Physical Exam Vital Signs: Last Vital Signs Pulse 97 04/25/25 09:37 BP 131/43 L 04/25/25 09:37 BMI result Body Mass Index 34.4 Const General: comfortable and no acute distress Orientation/consciousness: patient oriented x3 Neck Neck: Yes no lymphadenopathy Resp Auscultation: clear to auscultation bilaterally Cardio Rhythm: regular rhythm GI Palpation (GI): Soft to palpation, nontender and no guarding Back/Spine/Pelvis Other: Examination of the sacrococcygeal area does not reveal any induration, or localized tenderness. There were no midline pits. Overall exam does not suggest a pilonidal disease Neuro General: patient oriented x3 Assessment & Plan Assessment & Plan (1) Chronic pain: Code(s): G89.29 - Other chronic pain Category: Medical Plan: She has had multiple generalized chronic pain issues. She also describes pain in the area of the tailbone. Examination currently does not suggest any lateral disease. There were no areas of induration. There are no midline pits. There is no discharge or any sinus I did tell her that if she notices any swelling at some point and discharge or any other suggestion of a pilonidal disease, she should come back to the office and we can re-evaluate her. Coding Level of Care Code New Pt Level 3 (13253) Diagnoses Chronic pain G89.29
[2025-04-25 09:37] VITALS: BP 131/43; PULSE 97; BMI 34.4
== END 2025-04-25 09:52 | disposition home or self-care (01) ==
LOC: HO.HGS 09:25
PROVIDERS: PCP Internal Medicine; Visit Provider Surgery
DX: G89.29 Other chronic pain (principal)
CPT/HCPCS: 99203

== ENCOUNTER → 2025-04-25 09:25 | Outpatient (BNVA) | payer OTHER, SELFPAY | PROVIDERS: PCP Internal Medicine; Visit Provider Surgery | DX: Q79.60 Ehlers-Danlos syndrome, unspecified (principal); G43.E09 Chronic migraine with aura, not intractable, without status migrainosus; D47.09 Other mast cell neoplasms of uncertain behavior; R05.3 Chronic cough; E06.3 Autoimmune thyroiditis; G47.00 Insomnia, unspecified; M54.50 Low back pain, unspecified; R01.1 Cardiac murmur, unspecified; R42 Dizziness and giddiness; H53.9 Unspecified visual disturbance; R09.81 Nasal congestion; U09.9 Post COVID-19 condition, unspecified; G89.29 Other chronic pain; Z79.899 Other long term (current) drug therapy | CPT/HCPCS: 99202; 99212 ==

== ENCOUNTER 2025-05-03 09:50 | Outpatient (REF) | payer OTHER, SELFPAY ==
--- OUTSIDE RECORDS SUMMARY | 2025-04-27 23:59 | XMS_ITS | Continuity of Care Document ---
Author Organization [facility] Address [address] [place] [address]- Care Team Providers Care Material Checker Name Role Phone Chata HUGHES, Yaima Reed Primary Care Physician Encounter [facility] ACCT R [id number] Date(s): 03/28/25 - 04/27/25 [facility] [address] [place] [id number]- Encounter Type: Triage Allergies, Adverse Reactions, Alerts Substance Criticality Severity Reaction Reaction Severity Status terazosin DIZZINESS Active Glutens Active Xolair anaphylaxis Active Immunizations Given and Recorded Vaccine Date Status Refusal Reason tetanus/diphtheria/pertussis, acel(Tdap) 02/07/25 Given SARS-CoV-2(COVID-19)mRNA-LNP vac([id number]) 03/18/23 Recorded [id number] 12y+ bivalent booster vax 03/26/22 Recorded SARS-CoV-2 (COVID-19) mRNA BNT-162b2 vac 1 06/25/21 Recorded SARS-CoV-2 (COVID-19) mRNA BNT-162b2 vac 01/03/21 Recorded SARS-CoV-2 (COVID-19) mRNA BNT-162b2 vac 12/13/20 Recorded 1Result Comment: 3rd dose Medications Ambien 10 mg oral tablet 1 tablet = 10 mg, By Mouth, Daily at bedtime, PRN as needed for insomnia, # 28 tablet, 0 Refills, Maintenance, 04/15/25 12:08:00 PM EST, Tablet, [id number], Partial fill upon patient request if the prescription is for a schedule II opioid drug. please fill when due 03/19 or 03/20, 178, cm, 04/02/25 15:20:00 EDT, Height, 110.4, kg, 02/12/25 8:49:00 EDT, Dry Weight Start Date: 04/15/25 Status: Ordered Medication Dispense Status: Completed Quantity: 28.0 Unit: tablet Total Allowed Fills: 1 Fills Dispensed: 0 atogepant 10 mg oral tablet 1 tablet [...] Dry Weight Start Date: 04/27/24 Status: Ordered Medication Dispense Status: Completed Quantity: 90.0 Unit: tablet Total Allowed Fills: 1 Fills Dispensed: 0 azelastine 0.05% ophthalmic solution 1 drops, Eyes, Both, 2 times a day, PRN for allergy symptoms, # 6 mL, 6 Refills, Maintenance, 10/11/24 11:57:00 AM EDT, [id number], Partial fill upon patient request if the prescription is for a schedule II opioid drug., 1 drops Eyes, Both 2 times a day,PRN:for allergy symptoms, 178, cm, 10/11/24 11:04:00 EDT, Height, 110, kg, 10/11/24 11:04:00 EDT, Dry Weight Start Date: 10/11/24 Status: Ordered Medication Dispense Status: Completed Quantity: 6.0 Unit: mL Total Allowed Fills: 7 Fills Dispensed: 0 candesartan 4 mg oral tablet 1/2 TO 1 TABLET, By Mouth, Daily, # 90 tablet, 1 Refills, Maintenance, 02/12/25 9:03:00 AM EDT, [id number], 178, cm, 02/12/25 8:49:00 EDT, Height, 110.4, kg, 02/12/25 8:49:00 EDT, Dry Weight Start Date: 02/12/25 Stop Date: 08/11/25 Status: Ordered Medication Dispense Status: Completed Quantity: 90.0 Unit: tablet Total Allowed Fills: 2 Fills Dispensed: 0 Claritin 10 mg oral tablet 20 mg, 2, tablet, By Mouth, Daily, # 30 tablet, Refills 0, Maintenance, 01/22/19 7:00:58 PM EDT Start Date: 01/22/19 Status: Ordered Medication Dispense Status: Completed Quantity: 30.0 Unit: tablet Total Allowed Fills: 1 Fills Dispensed: 0 Cranberry 0 Refills, Maintenance, 06/10/23 2:23:00 PM EST, Partial fill upon patient request if the prescription is for a schedule II opioid drug. Start Date: 06/10/23 Status: Ordered Medication Dispense Status: Completed Total Allowed Fills: 1 Fills Dispensed: 0 D-mannose 2g daily D-mannose 2g daily, Refills 0, Maintenance, 07/26/23 10:59:00 AM EST, Supply Start Date: 07/26/23 Status: Ordered Medication Dispense Status: Completed Total Allowed Fills: 1 Fills Dispensed: 0 diclofenac 1% topical gel 2.25 inches, Topically, [...] Dry Weight Start Date: 07/09/24 Status: Ordered Medication Dispense Status: Completed Quantity: 100.0 Unit: g Total Allowed Fills: 3 Fills Dispensed: 0 epinastine 0.05% ophthalmic solution 1 drops, Eyes, Both, 2 times a day, # 5 mL, 0 Refills, Maintenance, 11/22/24 3:56:00 PM EDT, [id number], Partial fill upon patient request if the prescription is for a schedule II opioid drug., 1 drops Eyes, Both 2 times a day, 178, cm, 10/19/24 8:42:00 EDT, Height, 110, kg, 10/11/24 11:04:00 EDT, Dry Weight Start Date: 11/22/24 Status: Ordered Medication Dispense Status: Completed Quantity: 5.0 Unit: mL Total Allowed Fills: 1 Fills Dispensed: 0 Fish Oil By Mouth, 0 Refills, Maintenance, 06/10/23 2:23:00 PM EST, Partial fill upon patient request if the prescription is for a schedule II opioid drug. Start Date: 06/10/23 Status: Ordered Medication Dispense Status: Completed Total Allowed Fills: 1 Fills Dispensed: 0 fluconazole 150 mg oral tablet 1 tablet = 150 mg, By Mouth, Daily, 0 Refills, Maintenance, 06/17/22 11:41:00 AM EST, Tablet, Partial fill upon patient request if the prescription is for a schedule II opioid drug. Start Date: 06/17/22 Status: Ordered Medication Dispense Status: Completed Total Allowed Fills: 1 Fills Dispensed: 0 flunisolide 25 mcg/inh nasal spray 2 sprays = 50 mcg, Nares, Both, 2 times a day, # 25 mL, 11 Refills, Maintenance, 03/19/24 10:58:00 AM EDT, [id number], Partial fill upon patient request if the prescription is for a schedule II opioid drug., 2 sprays Nares, Both 2 times a day, 178, cm, 03/10/24 15:24:00 EDT, Height, 112, kg, 03/08/24 11:00:00 EDT, Dry Weight Start Date: 03/19/24 Status: Ordered Medication Dispense Status: Completed Quantity: 25.0 Unit: mL Total Allowed Fills: 12 Fills Dispensed: 0 Indications: Other allergic rhinitis; Folic Acid = 100 mcg, Daily, 0 Refills, Maintenance, 01/22/19 7:02:04 PM EDT Start Date: 01/22/19 Status: Ordered Medication Dispense Status: Completed Total Allowed Fills: 1 Fills Dispensed: 0 ipratropium nasal 21 mcg/inh spray 0 Refills, Maintenance, 06/01/19 12:48:00 PM EST Start Date: 06/01/19 Status: Ordered Medication Dispense Status: Completed Total Allowed Fills: 1 Fills Dispensed: 0 07/05 oral tablet 0 Refills, Maintenance, 07/16/21 10:45:00 AM EST, Partial fill upon patient request if the prescription is for a schedule II opioid drug. Start Date: 07/16/21 Status: Ordered Medication Dispense Status: Completed Total Allowed Fills: 1 Fills Dispensed: 0 ketotifen 0.025% ophthalmic solution 1 drops, Eyes, Both, Every 8 hours, # 7.5 mL, 1 Refills, Maintenance, 08/25/22 3:57:00 PM EDT, Solution, [id number], Partial fill upon patient request if the prescription is for a schedule II opioid drug., 1 drops Eyes, Both Every 8 hours, 177.8, cm, 06/17/22 10:52:00 EST, Height, 116.3, kg,07/13/21 12:56:00 EST, Dry Weight Start Date: 08/25/22 Status: Ordered Medication Dispense Status: Completed Quantity: 7.5 Unit: mL Total Allowed Fills: 2 Fills Dispensed: 0 liothyronine 25 mcg oral tablet See Instructions, TAKES 4 TABS BY Mouth Daily, 0 Refills, Maintenance, 03/05/19 3:16:09 PM EDT, Tablet Start Date: 03/05/19 Status: Ordered Medication Dispense Status: Completed Total Allowed Fills: 1 Fills Dispensed: 0 meloxicam 15 mg oral tablet 1 tablet = 15 mg, By Mouth, Daily, PRN Pain , Moderate, # 30 tablet, 2 Refills, Maintenance, :12:00 PM EST, Tablet, [id number], Partial fill upon patient request if the prescription is for a schedule II opioid drug., 178, cm, 07/09/24 10:49:00 EST, Height, 110.1, kg, 07/09/24 10:49:00 EST, Dry Weight Start Date: 07/09/24 Status: Ordered Medication Dispense Status: Completed Quantity: 30.0 Unit: tablet Total Allowed Fills: 3 Fills Dispensed: 0 ondansetron 4 mg oral tablet, disintegrating DISSOLVE 1 TABLET IN MOUTH EVERY 8 HOURS NEEDED FOR NAUSEA AND VOMITING (INS ONLY COVERS 1 DAILY) Start Date: 06/17/22 Status: Ordered Medication Dispense Status: Completed Total Allowed Fills: 1 Fills Dispensed: 0 Pataday Once Daily Relief 0.2% ophthalmic solution 1 drops, Eyes, Both, Daily, # 2.5 mL, 1 Refills, Maintenance, 05/10/24 1:45:00 PM EST, [id number], Partial fill upon patient request if the prescription is for a schedule II opioid drug., 1 drops Eyes, Both Daily, 178, cm, 03/10/24 15:24:00 EDT, Height, 112, kg, 03/08/24 11:00:00 EDT, Dry Weight Start Date: 05/10/24 Status: Ordered Medication Dispense Status: Completed Quantity: 2.5 Unit: mL Total Allowed Fills: 2 Fills Dispensed: 0 Probiotic Formula 1 capsule, By Mouth, Daily, 0 Refills, Maintenance, 01/22/19 7:02:57 PM EDT Start Date: 01/22/19 Status: Ordered Medication Dispense Status: Completed Total Allowed Fills: 1 Fills Dispensed: 0 Qulipta 30 mg oral tablet 1 tablet, By Mouth, Daily, # 90 tablet, 3 Refills, Maintenance, 08/27/24 2:37:00 PM EDT, [id number], 178, cm, 08/17/24 9:05:00 EDT, Height, 110.1, kg, 07/09/24 10:49:00 EST, Dry Weight Start Date: 08/27/24 Status: Ordered Medication Dispense Status: Completed Quantity: 90.0 Unit: tablet Total Allowed Fills: 1 Fills Dispensed: 0 Tessalon Perles = 100 mg, By Mouth, 3 times a day, 0 Refills, Maintenance, 12/04/19 9:43:00 AM EDT Start Date: 12/04/19 Status: Ordered Medication Dispense Status: Completed Total Allowed Fills: 1 Fills Dispensed: 0 Vitamin B Complex oral tablet, extended release By Mouth, Daily, 0 Refills, Maintenance, 07/26/23 11:00:00 AM EST, Partial fill upon patient requestif the prescription is for a schedule II opioid drug. Start Date: 07/26/23 Status: Ordered Medication Dispense Status: Completed Total Allowed Fills: 1 Fills Dispensed: 0 Vitamin B12 = 5,000 mcg, 0 Refills, Maintenance, 01/22/19 7:02:09 PM EDT Start Date: 01/22/19 Status: Ordered Medication Dispense Status: Completed Total Allowed Fills: 1 Fills Dispensed: 0 Vitamin C 1000 mg oral tablet 1 tablet = 1,000 mg, By Mouth, 2 times a day, 0 Refills, Maintenance, 04/21/21 11:00:00 AM EST, Partial fill upon patient request if the prescription is for a schedule II opioid drug. Start Date: 04/21/21 Status: Ordered Medication Dispense Status: Completed Total Allowed Fills: 1 Fills Dispensed: 0 Vitamin D3 10,000 intl units oral capsule 1 capsule = 250 mcg, By Mouth, Every week, # 5 capsule, 0 Refills, Maintenance, 06/10/23 2:22:00 PM EST, Capsule, Partial fill upon patient request if the prescription is for a schedule II opioid drug. Start Date: 06/10/23 Status: Ordered Medication Dispense Status: Completed Quantity: 5.0 Unit: capsule Total Allowed Fills: 1 Fills Dispensed: 0 Vitamin K1 100mcg daily, 0 Refills, Maintenance, 10/24/19 3:37:00 PM EDT Start Date: 10/24/19 Status: Ordered Medication Dispense Status: Completed Total Allowed Fills: 1 Fills Dispensed: 0 zinc sulfate 66 mg oral tablet 1 [...] Date: 03/14/24 Stop Date: 06/06/24 Status: Ordered Medication Dispense Status: Completed Quantity: 42.0 Unit: tablet Total Allowed Fills: 6 Fills Dispensed: 0 zolpidem 10 mg oral tablet 1 tablet = 10 mg, By Mouth, Daily at bedtime, PRN as needed for insomnia, [employer] 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 Do not fill sooner than 02/18/25, 02/18/25, 178, cm, 02/12/25 8:49:00 EDT,Height, 110.4, kg, 02/12/25 8:49:00 EDT, Dry Weight Start Date: 02/12/25 Stop Date: 03/14/25 Status: Ordered Medication Dispense Status: Completed Quantity: 30.0 Unit: tablet Total Allowed Fills: 1 Fills Dispensed: 0 ZyrTEC 10 mg oral tablet 2 tablet = 20 mg, By Mouth, Daily, # 30 tablet, 0 Refills, Maintenance, 01/22/19 7:00:54 PM EDT, Tablet Start Date: 01/22/19 Status: Ordered Medication Dispense Status: Completed Quantity: 30.0 Unit: tablet Total Allowed Fills: 1 Fills Dispensed: 0 Problem List Condition Confirmation Course Effective Dates [...] than 100 in lifetime) entered on: 05/14/21 Sexual Orientation Self described orien tation: ; Straight or heterosexual Sex Sex Representation Female (finding) Patient Care team information Care Team Personnel Name: Yaima Brizuela MD Position: Reference Physician Member Role: PCP Address: [address] [place] [address] [address] [place] [address] [address] Telecom: Care Team Related Persons Name: AISHA ESTEVES Name: CECE ESTEVES Name: CECE NUÑEZ Insurance Providers Guarantor name: NITA DANIELITO Health Plan Information #: 1 Payer: [facility] Anhelo Payer Identifier: NA Member Number: [id number] Group Number: [id number] Subscriber Identifier: NA Relationship to Subscriber: self Coverage Type: Medicaid (Managed Care) Coverage Verification Date: NA Telecom: NA Address:
--- OUTSIDE RECORDS SUMMARY | 2025-05-02 23:59 | XMS_ITS | Continuity of Care Document ---
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 Name Role Phone Chata HUGHES, Yaima Reed Primary Care Physician [phone] Encounter [facility] Date(s): 04/02/25 - 05/02/25 [facility] [address], [address] [place] [address]- Encounter Type: Triage Allergies, Adverse Reactions, Alerts Substance Criticality Severity Reaction Reaction Severity Status terazosin DIZZINESS Active Glutens Active Xolair anaphylaxis Active Immunizations Given and Recorded Vaccine Date Status Refusal Reason tetanus/diphtheria/pertussis, acel(Tdap) 02/07/25 Given SARS-CoV-2(COVID-19)mRNA-LNP vac([id number]) 03/18/23 Recorded [id number] 12y+ bivalent booster vax 03/26/22 Recorded SARS-CoV-2 [...] Maintenance, 04/15/25 12:08:00 PM EST, Tablet, [id number], Partial fill upon patient request if the prescription is for a schedule II opioid drug. please fill when due 03/19 or 10/15, 178, cm, 04/02/25 15:20:00 EDT, Height, 110.4, [...] 6 Refills, Maintenance, 10/11/24 11:57:00 AM EDT, [id number], Partial fill upon patient [...] Refills, Maintenance, 07/09/24 11:55:00 AM EST, Gel, [id number], Partial fill upon patient [...] 11 Refills, Maintenance, 03/19/24 10:58:00 AM EDT, [id number], Partial fill upon patient [...] Refills, Maintenance, 08/25/22 3:57:00 PM EDT, Solution, [id number], Partial fill upon patient [...] 2 Refills, Maintenance, :12:00 PM EST, Tablet, [id number], Partial fill upon [...] 1 Refills, Maintenance, 05/10/24 1:45:00 PM EST, [id number], Partial fill upon patient [...] Maintenance, 08/27/24 2:37:00 PM EDT, [id number], 178, cm, 08/17/24 9:05:00 EDT, Height, 110.1, [...] Refills, Maintenance, 03/14/24 4:16:00 PM EDT, Tablet, [id number], Partial fill [...] bedtime, PRN as needed for insomnia, 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, # 30 tablet, 0 Refills, [...] Position: Reference Physician Member Role: PCP Address: [address] [place] [address] [address] [facility] [address] Telecom: Care Team Related Persons Name: AISHA ESTEVES Name: CECE ESTEVES Name: CECE NUÑEZ Insurance Providers Guarantor name: NITA DANIELITO Health Plan Information #: 1 Payer: [employer] PO[employer]ER Payer Identifier: NA Member Number: [id number] Group Number: [id number] Subscriber Identifier: NA Relationship to Subscriber: self Coverage Type: Medicaid (Managed Care) Coverage Verification Date: NA Telecom: NA Address:
--- OUTSIDE RECORDS SUMMARY | 2025-05-03 09:53 | XMS_ITS | Data Portability ---
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 Plan of Treatment [...] Name and Address Organization Details Recorded Time 201026 wheat gluten extract food Not available Not available Not available 02/22/2024 64323 81 RxNorm JESUSITA PABLO [facility] 4 10:02:43 761148 wheat preparati on food,medi cation Not available Not available Not available 02/22/2024 99712 52 RxNorm JESUSITA PABLO [facility] 4 10:02:48 [id number] Xolair medicatio n Not available Not available Not available 02/22/2024 63900 7 RxNorm JESUSITA PABLO null, [place] - [facility] 4 10:02:59 Medications Name Sig Start Date [...] Updated DateTime 06/20/2024 177.8 cm 35.9 kg/m2 602037.09 g JESUSITA PABLO [facility] 06/20/2024 15:57:34 Date Recorded Body height Body mass index (BMI) Body weight Provider Name and Address Organization Details Last Updated DateTime 02/22/2024 177.8 cm 7.2 kg/m2 16631.62 g JESUSITA PABLO [facility] 02/22/2024 10:02:34 Social History None recorded. Functional Status None recorded. Mental Status None recorded. Family History Nothing Reported. Medical History Condition Response Thyroid Problems Y Gynecological HistoryNo gynecological history recorded. Obstetrics History GPAL:G 0 P 0 0 0 0 Past Encounters Encounter ID Performer Location Encounter Start Date Encounter Closed Date Diagnosis/Indication Diagnosis SNOMED-CT Code Diagnosis ICD10 Code Diagnosis IMO Codes Diagnosis Note [id number] MD Alaina Cole [address] [place] [address] 02/22/2024 08:56:46 03/14/2024 11:37:39 Bilateral carpal tunnel syndrome [id number] 7513059 G56.03 [id number] MD JONE Cole Alaina [address] [place] [address] 06/20/2024 15:52:40 07/04/2024 14:43:27 Bilateral carpal tunnel syndrome [id number] 4488074 G56.03 [id number] Health Concerns Section Related Observation LastModified by Organization Detai ls LastModified Time None Recorded Concern Status LastModified by Organization Details LastModified Time None Recorded Advance Directives Directive None Recorded Payers Insurance Date Sequence Insurance Name Policy Number Policy Locke Covered Member ID Locke Member ID Guarantor Name 07/04/2024 1 [facility] (MEDICAID REPLACEMENT - HMO) [id number] Venus Garcia [id number] Venus Garcia Notes Date Note Type Note Provider Name and Address Organization Details Recorded Time 02/22/2024 text/html ROS as noted in the HPI Diagnosis: Bilateral carpal tunnel syndromeHistory of Amos-Danlos [id number] female who presents with numbness tingling and weakness in her bilateral hands. This developed without history of trauma or other inciting event. She has recently undergone EMG/NCS of her bilateral upper extremities.Past family, medical, social history and review of systems has been reviewed, updated and is located in the patient s chart.Examination: Healthy appearing patient in no [...] to pursue surgical treatment. Alvaro Anderson MD [address] [place] [address] [address], [place], [address], [facility] 02/22/2024 12:24:18 06/20/2024 text/html ROS as noted in the HPI Diagnosis: 1. Bilateral carpal tunnel 2. Bilateral [...] reviewed, updated and is located in the patient s chart. Examination: Healthy appearing patient in [...] to proceed with treatment. Alvaro Anderson MD [address] [facility] [address], [place], [address], [facility] 06/20/2024 16:45:12 OBGyn Episode No OBEpisode recorded.
--- OUTSIDE RECORDS SUMMARY | 2025-05-03 09:53 | XMS_ITS | Clinical Summary ---
Author Organization [facility] [address] [facility] Address [address] [place] [address] Phone Care Team Providers Care Tableman Name Role Phone Ellie Sainz MD Primary Care Provider [phone] Allergies Active Allergy Reactions Criticality Noted Date [...] 05/16/20 24 Active norethindrone ac-eth estradio (Junel , ,) 1.5-30 mg-mcg per tablet Take 1 tablet by mouth 1 (one) time each day. 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 Hypothyroidism 05/13/2024 Mast cell disease 05/13/2024 PCOS (polycystic ovarian syndrome) 05/13/2024 Encounters Date Type Department Care Team Description 03/07/2025 10:23 AM EDT - 03/07/2025 11:59 PM EDT Hospital Encounter [facility] at [address] [address] Encounter for screening mammogram for malignant neoplasm of breast Discharge Disposition: Home or Self Care from Last 3 Months Surgical History Surgery [...] Name Comments Other: non-melanoma skin cancer Father Breast cancer Paternal Cousin Relation Name Status Comments Father Paternal Cousin Alive Social History Tobacco Use Types Packs/Day Years [...] for your loved ones. For example, children teacher or elderly care for an older adult? [...] Date Recorded What is your living situation? Unrecognized valu e 05/16/2024 Comments No Sex and Gender Information Value [...] - Inhaled Oxygen Concentration - - Weight 109 kg (240 lb) 03/07/2025 10:36 AM EDT Height 177.8 cm (5' 10 ) 03/07/2025 10:36 AM EDT Body Mass Index 34.44 03/07/2025 10:36 AM EDT Plan of Treatment Health Maintenance Due Date Last Done Comments Hepatitis B Vaccines (1 of 3 - 19+ 3-dose series) 02/04/2004 HPV Vaccines (1 - 3-dose SCDM series) 02/04/2012 HIV Screening 05/15/2022 Hepatitis C Screening 05/15/2022 COVID-19 Vaccine ( season) 2025 03/18/2023, 03/26/2022, 06/25/2021, Additional history exists Influenza Vaccine (#1) 2025 Social Influencers of Health Screening 05/16/2025 05/16/2024 Cervical Cancer Screening: Pap Smear 03/03/2026 03/03/2023 Breast Cancer Screening 03/07/2027 03/07/2025 DTaP,Tdap,and Td Vaccines (2 - Td or Tdap) 02/07/2035 02/07/2025 RSV Immunization Adult Patients (1 - 1-dose 75+ series) 02/04/2060 Depression Screening Completed 08/12/2024 HIB Vaccines Aged [...] Procedure Name Priority Date/Time Associated Diagnosis Comments MG MAMMO DIGITAL SCREENING W DMITRIY BILAT Routine 03/07/2025 10:44 AM EDT Encounter for screening mammogram for malignant neoplasm of breast HM PAP SMEAR Routine 03/03/2023 from Last 3 Months or Most Recently Relevant to Health Maintenance Results * MG Mammo Digital Screening w Dmitriy bilat (03/07/2025 10:44 AM EDT) Anatomical Region Laterality Modality Breast Bilateral Mammography 03/07/2025 11:5 2 AM EDT Impressions 03/07/2025 11:57 AM EDT No mammographic evidence of malignancy. A negative mammogram in the presence of a clinically suspicious palpable abnormality does not preclude the possibility of malignancy or alter the indications for biopsy. ASSESSMENT: BI-RADS 1: NEGATIVE RECOMMENDATION(S): 1: Routine screening mammogram BILATERAL in 1 year. [facility]amm[facility] location: [facility] at [address], [address] -------- FINAL REPORT -------- Dictated By: Andi Reynoso Dictated Date: 03/07/2025 11:52 ET Assigned Physician: Andi Reynoso Reviewed and Electronically Signed By: Andi Reynoso Signed Date: 03/07/2025 11:57 ET Workstation ID: [id number] Transcribed By: Self Edit Transcribed Date: 03/07/2025 11:52 ET Narrative 03/07/2025 11:57 AM EDT EXAM: SCREENING MAMMOGRAPHY, BILATERAL HISTORY: SCREENING. No additional history. COMPARISON: Initial exam TECHNIQUE: Synthesized CC and MLO projections of each breast. Tomosynthesis of each breast in the CC and MLO projections. ADDITIONAL IMAGING: None Computer-aided detection was employed with the [email or web address] ProFound AI 3-D. TISSUE DENSITY: There are scattered areas of fibroglandular density. (BI-RADS category B) FINDINGS: RIGHT BREAST: No suspicious mass. No suspicious calcification. No distortion. No additional suspicious right breast findings LEFT BREAST: No suspicious mass. No suspicious calcification. No distortion. No additional suspicious left breast findings Procedure Note Andi Reynoso MD - 03/07/2025 EXAM: SCREENING MAMMOGRAPHY, BILATERAL HISTORY: SCREENING. No additional history. COMPARISON: Initial exam TECHNIQUE: Synthesized CC and MLO projections of each breast.Tomosynthesis of each breast in the CC and MLO projections. ADDITIONAL IMAGING: None Computer-aided detection was employed with the [email or web address] ProFound AI 3-D. TISSUE DENSITY: There are scattered areas of fibroglandular density.(BI-RADS category B) FINDINGS: RIGHT BREAST: No suspicious mass. No suspicious calcification. No distortion. Noadditional suspicious right breast findings LEFT BREAST: No suspicious mass. No suspicious calcification. No distortion. Noadditional suspicious left breast findings IMPRESSION: No mammographic evidence of malignancy. A negative mammogram in the presence of a clinically suspicious palpableabnormality does not preclude the possibility of malignancy or alter theindications for biopsy. ASSESSMENT: BI-RADS 1: NEGATIVE RECOMMENDATION(S): 1: Routine screening mammogram BILATERAL in 1 year. [facility]amm[facility] location[facility] at [address], [address] -------- FINAL REPORT -------- Dictated By: Andi Reynoso Dictated Date: 03/07/2025 11:52 ET Assigned Physician: Andi Reynoso Reviewed and Electronically Signed By: Andi Reynoso Signed Date: 03/07/2025 11:57 ET Workstation ID: [id number] Transcribed By: Self Edit Transcribed Date: 03/07/2025 11:52 ET Elliott Ledezma CNMarichuy IMG BI PROCEDURES Final Resul t * Hm Pap Smear (03/03/2023) Pap smear NEGATIVE, ABSTRACTED Historical Provider HEALTH MAINTENANCE Final Result from Last 3 Months or Most Recently Relevant to Health Maintenance Insurance [facility] Care Teams Tableman Relationship Specialty Start Date End Date Ellie Sainz MD [id number] [place] [address] PCP - General Internal Medicine 03/07/25
--- OUTSIDE RECORDS SUMMARY | 2025-05-03 09:53 | XMS_ITS | Clinical Summary ---
Author Organization [facility] Address [address] [place] [address] Care Team Providers Care Sulfonation Equipment Operator Name Role Phone Brittany Ramsey MD Primary [...] age to complete this topic Care Teams Sulfonation Equipment Operator Relationship Specialty Start Date End Date Brittany Ramsey MD [address] [place] [address] PCP - General Family Medicine 03/07/18
--- OUTSIDE RECORDS SUMMARY | 2025-05-03 09:53 | XMS_ITS | Clinical Summary ---
Author Organization [facility] Address [address] [place] [address] Care Team Providers Care Private Branch Exchange Repairer Name Role Phone Unknown Primary Care Provider [phone] Social History Tobacco Use Types Packs/Day Years [...] Pap Smear (Ages 21-65) 2006 Influenza Vaccine 01/04/2025 Mammogram 2025 COVID-19 Vaccine (4 - 2024-2 6 season) 2025 06/25/2021, 01/03/2021, 12/13/2020 HPV Vaccines (No Doses Required) Completed Pneumococcal Vaccine: Pediatric (0-5 Years) and At-Risk Patients (6 to 49 Years) Aged Out No longer eligible b ased on patient's age to complete this topic Insurance [facility] Care Teams Private Branch Exchange Repairer Relationship Specialty Start Date End Date Unknown Unknow Provider Address PCP - General 10/05/22
--- OUTSIDE RECORDS SUMMARY | 2025-05-03 09:53 | XMS_ITS | Clinical Summary ---
Author Organization [facility] Address [address] [place] [address] Phone Care Team Providers Care Label Printer Name Role Phone Yaima Brizuela Primary Care Provider [phone] Yaima Brizuela Unavailable [phone] Yaima Brizuela Unavailable Medications ketotifen fumarate (ZADITOR OPHT) Eye Both, Q8hr, Entered: 06/22/19 15:31:49 EST 06/22/2019 Active liothyronine sodium (CYTOMEL ORAL) Dose: 50 mcg, PO, BID, Entered: 06/22/19 15:30:23 EST 06/22/2019 Active Social History Tobacco Use Types Packs/Day Years Used Date Smoking Tobacco: Never Assessed Comments Unknown Sex and Gender Information Value Date Recorded Sex Assigned at Not on file Legal Sex Female 2:46 AM EDT Gender Identity Not on file Sexual Orientation Not on file Last Filed Vital Signs Vital Sign Reading Time Taken Comments Blood Pressure - - Pulse - - Temperature 36.4 C (97.5 F) 09/15/2020 4:31 PM EDT Respiratory Rate - - Oxygen Saturation - - Inhaled Oxygen Concentration - - Weight 110 kg (242 lb 4.6 oz) 04/05/2022 11:28 A M EDT Height 177.5 cm (5' 9.88 ) 04/05/2022 11:28 AM E DT Body Mass Index 34.88 04/05/2022 11:28 AM EDT Plan of Treatment Not on file Care Teams Label Printer Relationship Specialty Start Date End Date Yaima Brizuela [phone] [address] PCP - General 03/22/19 Yaima Brizuela [phone] [address] PCP - Insurance PCP 03/22/19 Yaima Brizuela [phone] [address] PCP - Clinical PCP 03/22/19
--- OUTSIDE RECORDS SUMMARY | 2025-05-03 09:53 | XMS_ITS | Clinical Summary ---
Author Organization [facility] Address [address] [address] Phone Care Team Providers Care Steamfitter Supervisor Name Role Phone Pcp, Not Required Primary [...] SCREENING (On ce After 26 Yrs) 2011 INFLUENZA VACCINE (#1) 2025 MAMMOGRAM 2025 COVID-19 VACCINE (3 - 2024-2 6 season) 2025 01/03/2021, 12/13/2020 HEPATITIS A VACCINES Aged Out [...] Not on file Insurance [employer] [place] [address] [place] [address] [facility] [place] [address] [place] [address] [address] [place] [address] [place] [address] [place] [address] [employer] Care Teams Steamfitter Supervisor Relationship Specialty Start Date End Date Pcp, Not Required [address] [place] [address] PCP - General 06/29/13 Additional Source Comments The information contained in this document represents components of the legal health record. It is not the complete legal health record.[facility]
--- OUTSIDE RECORDS SUMMARY | 2025-05-03 09:53 | XMS_ITS | Clinical Summary ---
Author Organization [facility] Address [address] [place] [address] Care Team Providers Care Sample Cutter Name Role Phone Pcp, No MD Primary [...] Health Maintenance Due Date Last Done Comments Breast Cancer Screening 1985 HIV Screening 1985 DTaP,Tdap,and Td Vaccines (1 - Tdap) 2003 Hepatitis B Vaccines (1 of 3 - 19+ 3-dose series) 02/04/2004 Pap Smear 2006 HPV Vaccines (1 - 3-dose SCD M series) 02/04/2012 Cervical Cancer Screening 2015 HPV/Cotest 2015 COVID-19 Vaccine (1 - 2024-2 6 season) 2025 Influenza Vaccine (#1) 2025 Zoster Vaccines (1 of 2) 2035 Hepatitis A Vaccines Aged Out No long er eligible based on patient's age to complete this topic MMR Vaccines Aged Out No longer eligi ble based on patient's age to complete this topic Meningococcal Vaccine Aged Out No rashaun addi eligible based on patient's age to complete this topic Pneumococcal Vaccine: At-Ris k and Pediatric Patients (0 to 49 Years) Aged Out No lo nger eligible based on patient's age to complete this topic [facility] [address] [place] [address] ANTHEM - OUT OF STATE Member Subscriber Plan / Payer (Ef fective 2014-Present) Name:Venus Garcia Relation to Subscriber:Self Name:Venus Garcia Payer ID:[id number] (NAIC) Type:HMO Address: [place] [phone] Care Teams Sample Cutter Relationship Specialty Start Date End Date Pcp, MD [address] [place] [address] PCP - General 08/03/17
[2025-05-03 10:04] LABS: MANUAL DIFF FLAG NO
[2025-05-03 10:35] LABS: Hematocrit 38.6 % (37.0-47.0); Hemoglobin 13.0 g/dl (12.0-16.0); Imm Gran Abs Auto 0.01 X10*3/uL (0.00-0.03); Imm Gran Pct Auto 0.2 % (0.0-0.4); Lymphocytes Absolute Auto 2.5 X10*3/uL (1.2-4.9); Mean Corpuscular HGB Conc 33.7 g/dl (31.0-35.0); Mean Corpuscular Hemoglobin 27.9 pg (27.0-33.0); Mean Corpuscular Volume 82.8 fL (80.0-98.0); NRBC Abs Auto 0.000 X10*3/uL (0.0-0.012); NRBC Pct Auto 0.0 /100WBC (0.0-0.2); Platelet Count 373 X10*3/uL (160-400); Red Blood Count 4.66 X10*6/uL (4.20-5.50); White Blood Count 6.3 X10*3/uL (4.8-10.8)
[2025-05-03 11:04] LABS: Alanine Aminotransferase 17 U/L (0-31); Albumin Level 4.5 g/dL (3.5-5.0); Alkaline Phosphatase 43 U/L (39-117); Anion Gap 12 (12-20); Aspartate Amino Transferase 23 U/L (5-31); Blood Urea Nitrogen 9 mg/dL (9-16); Calcium 9.1 mg/dL (8.4-10.2); Carbon Dioxide 24 mmol/L (22-29); Chloride 106 mmol/L (96-108); Cholesterol 181 mg/dL (<200); Estimated Glomerular Filt Rate > 60; HDL Cholesterol 52 mg/dL (>40); Iron 119 mcg/dL (30-160); Percent Iron Saturation 39 % (15-50); Potassium 4.0 mmol/L (3.3-5.1); Sodium 138 mmol/L (135-145); Total Iron Binding Capacity 303 mcg/dL (228-428); Total Protein 7.2 g/dL (6.5-8.0); Triglycerides 91 mg/dL (<150); Unsaturated Iron Binding 184 ug/dL
[2025-05-03 11:22] LABS: Ferritin 79 ng/mL (10-250)
[2025-05-03 11:30] LABS: Folate 16.5 ng/mL (> or = 4.0); Vitamin B12 819 pg/mL (200-900)
[2025-05-03 12:10] LABS: Free T4 (Free Thyroxine) < 0.42 ng/dL (0.71-1.85)
[2025-05-04 05:09] LABS: EBV-NA IgG Index >600.00 U/mL; EBV-VCA IgG Ab 278.00 U/mL; EBV-VCA IgM Ab <36.00 U/mL
[2025-05-06 11:54] LABS: Immunoglobulin G Subclass 1 568 mg/dL (382-929); Immunoglobulin G Subclass 2 297 mg/dL (241-700); Immunoglobulin G Subclass 3 9 mg/dL (22-178); Immunoglobulin G Subclass 4 33.9 mg/dL (4-86); Immunoglobulin G Total 1018 mg/dL (600-1640)
[2025-05-06 19:03] LABS: Thyroglobulin Antibodies <1 IU/mL (< or = 1)
== END 2025-05-03 09:51 | disposition home or self-care (01) ==
LOC: HO.LAB 09:50
PROVIDERS: Visit Provider Internal Medicine
DX: E06.3 Autoimmune thyroiditis (principal); D47.09 Other mast cell neoplasms of uncertain behavior; Q79.60 Ehlers-Danlos syndrome, unspecified; B27.90 Infectious mononucleosis, unspecified without complication; E66.9 Obesity, unspecified; Z82.49 Family history of ischemic heart disease and other diseases of the circulatory system
CPT/HCPCS: 36415; 80053; 80061; 82306; 82607; 82728; 82746; 82784; 83036; 83540; 83695; 84425; 84439; 84443; 84481; 85025; 86141; 86376; 86664; 86665; 86800

== ENCOUNTER → 2025-06-04 10:51 | Outpatient (REF) | payer OTHER, SELFPAY ==
--- NOTE | 2025-06-04 10:53 | CA_ITS ---
Transthoracic Echocardiogram Patient (Last, First, Middle): Venus Garcia, Gender: Female Date of : 1985 Age: 40 Procedure Date: 06/04/2025 Procedure Type: Transthoracic Echocardiogram Location: OP Height: 177.8 cm Weight: 106.14 kg BSA: 2.23 m2 Heart Rate: bpm BP: 90 / 60 mmHg Commercial Lending Vice President: TO Referring MD: Yiama Brizuela MD Symptoms: R01.1 - Cardiac murmur, unspecified Study Quality: Adequate ECG Rhythm: Sinus Conclusions: - The left ventricular systolic function is normal. The calculated ejection fraction is 60% by biplane method. - No obvious valvular pathology seen on this study. Findings Left Ventricle Normal left ventricular cavity size. There is normal left ventricular wall thickness. The left ventricular systolic function is normal. The calculated ejection fraction is 60% by biplane method. There is no evidence of regional wall motion abnormalities. Diastolic function is normal for age. Right Ventricle Normal right ventricular cavity size and systolic function. Atria Both atria are normal in size. Aortic Valve There is a normal trileaflet aortic valve. There is no aortic valve stenosis. There is no aortic valve regurgitation. Mitral Valve The mitral valve appears normal. There is no mitral valve regurgitation. There is no mitral valve stenosis. Pulmonic Valve The pulmonic valve is likely normal. Tricuspid Valve There is trace tricuspid valve regurgitation. There is no evidence of pulmonary hypertension. Great Vessels The asc aorta and aortic arch are normal in size. Venous The inferior vena cava is normal in size and collapses greater than 50% with inspiration. Pericardium/Pleural There is no evidence of pericardial effusion. Prior Study Comparison No prior study available for comparison. Recommendations, Care & Conclusions No obvious valvular pathology seen on this study. Measurements 2D Linear Measurements IVSd: 0.69 0.6-0.9/0.6-1.0 cm LVIDd: 4.99 3.9-5.3/4.2-5.9 cm LVIDd Index: 2.24 2.4-3.2/2.2-3.1 cm/m2 LVIDs: 3.03 2.0-3.6 cm LVPWd: 0.75 0.7-1.1 cm LA Diam: 3.00 2.7-3.8/3.0-4.0 cm LAIDs Index: 1.35 1.5-2.3 cm/m2 LV Mass: 146.74 67-162/88-224 g LV Mass Index: 65.80 43-95/49-115 g/m2 LVOT Diam: 2.30 3.0+(-)1.3 cm 2D Systolic Function EF 4C: 58.10 >55% EF 2C: 66.60 >55% EF BiP: 59.60 >55% Mitral Valve MV Pk E: 0.81 MV PK A: 0.52 MV Decel Time: 203.00 E/A: 1.50 E'Lateral: 12.70 E'Medial: 10.40 E/E' Med: 7.80 E/E' Lat: 6.40 PHT: 59.00 MVA PHT: 3.73 Decel [place]: 3.99 Aortic Valve AoV Pk Gage: 1.36 AoV Mn Gage: 0.94 AoV VTI: 0.28 AoV Pk Grad: 7.00 Aov Mn Grad: 4.00 RACHID Cont.VTI: 3.88 LVOT LVOT Pk Gage: 1.49 LVOT Mn Gage: 0.95 LVOT VTI: 0.26 LVOT Pk Grad: 9.00 LVOT Mn Grad: 4.00 LVOT Diam: 2.30 LVOT Area: 4.15 Diastolic Function MV Pk E: 0.81 MV Pk A: 0.52 E/A: 1.50 E'Medial: 10.40 E/E' Med: 7.80 E' Laterial: 12.70 E/E' Lat: 6.40 Right Ventricle TAPSE (mm): 26.10 TVS' Gage: 12.80 Tricuspid Valve RA Press: 3.00 Great Vessels Aorta Sinus of Valsalva: 3.55 2.0-3.5 cm Ao Asc: 3.40 2.1-3.4 cm Ao Arch: 2.80 Updated in Other Vendor System with Status of Final Amadeo Monreal MD electronically signed on 06/06/2025 11:43:42 AM with status of Final
== END ==
LOC: HO.CARD 10:51
PROVIDERS: PCP Internal Medicine; Visit Provider Internal Medicine
DX: R01.1 Cardiac murmur, unspecified (principal); Q79.60 Ehlers-Danlos syndrome, unspecified; Z82.49 Family history of ischemic heart disease and other diseases of the circulatory system
CPT/HCPCS: 93306

== ENCOUNTER → 2025-06-04 10:53 | Outpatient (BNV) | payer OTHER, SELFPAY | PROVIDERS: PCP Internal Medicine; Visit Provider Internal Medicine | DX: R01.1 Cardiac murmur, unspecified (principal) | CPT/HCPCS: 93306 ==